=== PATIENT | female | born 1965 | race Caucasian/White ===

== ENCOUNTER 2022-10-23 14:19 | Outpatient (OUT) | payer MEDICAID, SELFPAY ==
--- NOTE | 2022-10-23 14:49 | PM.CN ---
Consult Note: HPI Data of Consult Patient: known to practice within the last 3 years Consult date: 10/23/22 Requesting Physician: BRYANNA WILD NP Primary Care Provider: Marlon Garcia MD Consult Narrative Narrative: She is here for f/u of right knee pain. She had steroid knee injection without residential relief. She would like to try a gel injection. She had gel before with significant relief several years ago. She recently did PT and is doing home exercises. No new sensorimotor or bowel or bladder issues. No adverse med SE. Medications assist patient to be able to complete ADLs cc:: CC: BRYANNA WILD NP Review of Systems ROS Status of ROS 10 or more systems reviewed and unremarkable except as noted in history and below Musculoskeletal Reports: extremity pain Exam Constitutional Documenting provider has reviewed patient's vital signs: yes Common normals: no apparent distress, oriented x3, no limitations, healthy appearing, alert and well nourished General appearance: cooperative, comfortable and well developed Nutritional appearance: obese Orientation/consciousness: Yes awake, Yes oriented to person, Yes oriented to place and Yes oriented to time HENMT Common normals: normocephalic and moist oral mucous membranes Respiratory Common normals: normal respiratory effort, no retractions and no use of accessory muscles Effort & inspection: able to speak in complete sentences and symmetric chest movement Extremity Common normals: normal to inspection, normal capillary refill and no pedal edema Other: right knee pain with ROM and climbing stairs. Pain to outer aspect of knee. LE muscle strength 5/5 with intact sensation Assessment and Plan Assessment and Plan (1) Knee osteoarthritis: Plan right knee durolane injection under fluoroscopy
== END 2022-10-23 14:20 | disposition home or self-care (01) ==
LOC: PM 14:19
PROVIDERS: PCP Family Medicine; Visit Provider Nurse Practitioner
DX: M25.561 Pain in right knee (principal); M17.11 Unilateral primary osteoarthritis, right knee
CPT/HCPCS: G0463

== ENCOUNTER 2022-10-24 09:35 | Outpatient (OUT) | payer MEDICAID, SELFPAY ==
[2022-10-24 10:21] LABS: Basophils Absolute Auto 0.1 10^3/uL (0.0-0.1); Basophils Percent Auto 0.7 % (0.2-2.0); Eosinophils Absolute Auto 0.1 10^3/uL (0.0-0.7); Hematocrit 42.5 % (36.0-48.0); Hemoglobin 13.7 g/dL (12.0-16.0); Immature Granulocytes Abs Auto 0.03 10^3/uL (0.00-0.03); Immature Granulocytes Pct Auto 0.4 % (0.0-0.5); Lymphocytes Absolute Auto 1.8 10^3/uL (1.2-3.8); Lymphocytes Percent Auto 24.7 % (20.5-60.0); Mean Corpuscular HGB Conc 32.2 g/dL (29.9-35.2); Mean Corpuscular Hemoglobin 28.4 pg (26.7-34.0); Mean Platelet Volume 9.7 fL (9.5-13.5); Monocytes Absolute Auto 0.6 10^3/uL (0.3-0.8); Monocytes Percent Auto 7.9 % (1.7-12.0); Neutrophils Absolute Auto 4.6 10^3/uL (1.4-6.5); Neutrophils Percent Auto 64.3 % (43.0-75.0); Platelet Count 215 10^3/uL (150-450); Red Blood Count 4.83 10^6/uL (4.20-5.40); Red Cell Distribution Width 12.3 % (11.0-15.0); White Blood Count 7.2 10^3/uL (4.0-11.0)
[2022-10-24 10:57] LABS: Estimated Average Glucose 103 mg/dL; Glycohemoglobin A1C 5.2 % (4.5-6.2)
[2022-10-24 11:57] LABS: Alanine Aminotransferase 20 U/L (14-59); Albumin Globulin Ratio 1.2; Albumin Level 3.6 g/dL (3.4-5.0); Alkaline Phosphatase 83 U/L (46-116); Anion Gap 10.1; Aspartate Amino Transferase 17 U/L (15-37); BUN Creatinine Ratio 24.7; Bilirubin Total 0.4 mg/dL (0.2-1.0); Calcium 8.7 mg/dL (8.5-10.1); Carbon Dioxide 28.4 mmol/L (21.0-32.0); Chloride 106 mmol/L (98-107); Chol HDL Ratio 4.3; Cholesterol 224 mg/dL (<=200); Estimated GFR (African America >60 (>=60); Estimated GFR (Non-African Ame >60 (>=60); Free T3 3.16 pg/mL (2.18-3.98); Globulin 3.1 g/dL; Glucose 87 mg/dL (74-106); HDL Cholesterol 52 mg/dL (40-60); Potassium 4.5 mmol/L (3.5-5.1); Sodium 140 mmol/L (136-145); Total Protein 6.7 g/dL (6.4-8.2); Triglycerides 165 mg/dL (<=150)
== END 2022-10-24 09:36 | disposition home or self-care (01) ==
LOC: LAB 09:37
PROVIDERS: PCP Family Medicine; Visit Provider Family Medicine
DX: Z00.00 Encounter for general adult medical examination without abnormal findings (principal)
CPT/HCPCS: 36415; 80053; 80061; 83036; 84436; 84443; 84481; 85025

== ENCOUNTER 2022-11-20 08:43 | Day surgery (SDC) | payer MEDICAID, SELFPAY ==
[2022-11-20 09:32] VITALS: BP 130/81; PULSE 73; RESP 14; TEMP 36.1; O2SAT 97
[2022-11-20 10:03] VITALS: RESP 20
[2022-11-20 10:08] VITALS: BP 138/62; PULSE 70; O2SAT 95
[2022-11-20] MEDS: LIDOCAINE HCL 2% PF 100 MG/5 ML VIAL INJ (10:09)
[2022-11-20] MEDS: HYALURONATE SODIUM, STABILIZED 60 MG/3 ML SYRINGE IU (10:09)
[2022-11-20] MEDS: IOHEXOL 240 MG/ML - 10 ML VIAL INJ (10:09)
[2022-11-20 10:11] VITALS: BP 126/60; PULSE 68; O2SAT 95
--- NOTE | 2022-11-20 11:32 | W.PM.PROCNOT ---
Date of procedure: 11/20/22 Pre-op diagnosis: right knee osteoarthritis Post-op diagnosis: same as pre-op Procedure: Procedure: Right knee joint injection using Durolane 3ml. Immediate complications none. Anesthesia: 2% lidocaine plain for skin wheal. After informed consent was obtained, patient brought to the OR placed in the supine position. Skin overlying the area was prepped and draped using Betadine. 25-gauge 1/2 inch needle was used for skin wheal over the medial aspect of the right knee joint identified under fluoroscopy. Omnipaque dye was used to confirm needle tip placement within the knee joint space 0.5 mL use of the injection. Subsequently 3ml of durolane was injected into the space. No indication of intravascular or intraneuronal needle tip placement or injection was noted post procedure. The needle was removed, patient transferred to Recovery room in stable condition to discharged home after meeting criteria. Anesthesia: Local Surgeon: Geoff Romero Condition: stable
== END 2022-11-20 10:13 | disposition home or self-care (01) ==
LOC: SURGOUT 08:44
PROVIDERS: PCP Family Medicine; Visit Provider Anesthesiology Pain Medicine
DX: M17.11 Unilateral primary osteoarthritis, right knee (principal)
CPT/HCPCS: 20610; 77002; J7318; Q9966

== ENCOUNTER 2022-12-11 14:32 | Outpatient (OUT) | payer MEDICAID, SELFPAY ==
--- NOTE | 2022-12-11 15:06 | P.CN_ITS ---
Consult Note: HPI Data of Consult Patient: known to practice within the last 3 years Requesting Physician: Vivian Corral NP Primary Care Provider: Marlon Garcia MD Consult Narrative Reason for consult: right knee durolane f/u Narrative: Jessica Dillard a pleasant 57 year old female presents to office for follow up on right knee pain that has failed PT, conservative therapy, and steroid injections. Patient had second injection of durolane with mild-moderate relief of pain, feels it was not as beneficial as the first time she had this injection but it is helpful. Today rating pain 3/10. cc:: CC: Vivian Corral NP Review of Systems ROS Status of ROS 10 or more systems reviewed and unremarkable except as noted in history and below Musculoskeletal Reports: joint pain PFSH PFSH Medical History (Updated 12/11/22 @ 15:18 by Vivian Corral NP) Surgical History Meds Home Medications and Allergies Home Medications Medication Instructions Recorded Confirmed Type acetaminophen 500 mg tablet 500 mg PO QID PRN pain 11/04/22 11/20/22 History (Acetaminophen Extra Strength) baclofen 10 mg tablet 10 mg PO Q8H PRN muscle spasm 11/04/22 11/20/22 History bee pollen 550 mg capsule mg PO 11/04/22 History biotin 1 mg capsule 1 mg PO DAILY 11/04/22 11/20/22 History celecoxib 200 mg capsule 200 mg PO Q24H 11/04/22 11/20/22 History hydrocodone 5 mg-acetaminophen 325 1 tab PO BID 11/04/22 11/20/22 History mg tablet magnesium 200 mg tablet 400 mg PO DAILY 11/04/22 11/20/22 History multivitamin (Daily Multi-Vitamin 1 tab PO DAILY 11/04/22 11/20/22 History tablet) pantoprazole 40 mg tablet,delayed 40 mg PO DAILY 11/04/22 11/20/22 History release hydrocodone 5 mg-acetaminophen 325 1 tab PO BID PRN pain #60 tabs 11/21/22 Rx mg tablet Allergies Allergy/AdvReac Type Severity Reaction Status Date / Time ciprofloxacin [From Cipro] Allergy Verified 11/20/22 09:37 Exam Constitutional Documenting provider has reviewed patient's vital signs: yes Common normals: no apparent distress, oriented x3, healthy appearing, alert and well nourished General appearance: cooperative HENMT Common normals: normocephalic, hearing grossly normal bilaterally and moist oral mucous membranes Head and scalp: normocephalic Eye Common normals: PERRL Pupil: PERRL Neck & C-Spine Common normals: full ROM General: normal visual inspection Chest Common normals: inspection of chest normal Respiratory Common normals: normal respiratory effort, no retractions and no use of accessory muscles Extremity Right lower extremity: knee joint (pain with weight bearing and activity) Right knee: inspection (enlarged joint) Neuro Common normals: oriented x3, CN's II-XII intact bilaterally, moves all extremiti es, no focal motor deficits, no sensory deficits noted and deep tendon reflexes 2+ bilaterally Sensorium/orientation: alert Gait (neuro): normal gait Motor exam: strength 5/5 throughout and no movement abnormalities noted Psych Common normals: mental status grossly normal, thought process normal, cooperative, affect normal, speech normal and activity/motor behavior normal Speech: normal speech Thought process: normal thought process Results Additional Findings Additional findings: I have checked an [place]AR[place] report on this patient today and there are no aberrancies noted in the prescribing history.?? A drug screen was completed and reviewed within the last year, and if there has not been a drug screen completed we ordered one today to monitor higher risk, state monitored pain medication use. As part of providing excellent, safe, comprehensive care, the following was completed at our patient's visit: 1. A medication reconciliation and review to ensure accurate knowledge of current/active medications, including asking our patients to inform us about any [id number] medications or herbal remedies/nutritional supplements/altern ative remedies. 2. A review to specifically ensure our patients have had annual screening for: elevated body mass index (BMI), tobacco use, screening for depression, and screening for unhealthy alcohol use. When screening is concerning, patients are provided with education and the specific recommendation to discuss the concerning health issue and treatment options with their primary care provider. Assessment and Plan Assessment and Plan (1) Knee osteoarthritis: (2) Obesity: Assessment and Plan: hx of bariatric surgery, congratulated on weight loss efforts continue exercise (3) Chronic prescription opiate use: Assessment and Plan: I have refilled the patient's opioid prescriptions at the above noted dose and schedule.? I feel these medications are improving the patient's quality of life and allow them to tolerate activities of daily living as well as participate in recreational activity.? The patient does not report intolerable side effects. The patient is NOT opioid naive and non-pharmacologic and non-opioid treatment has failed to significantly relieve the patient's pain and improve functionality. The patient has a diagnosis that is related to a somatic or visceral pain etiology. ? ?? I reviewed with the patient the potential risks and side effects with the use of? opioid medications including but not limited to respiratory depression,?sedation, and even . I verified the patient has access to naloxone should?these effects occur. I advised the patient to avoid the use of any other? sedation substances including alcohol, THC, and benzodiazepines while?taking opioid medications due to the risk of compounding side effects and outcomes. I reviewed the [employer], pain treatment agreement, urine? drug screen, and opioid start talking forms. The patient was advised to let?their family know they had Naloxone in case they would need to administer?the medication.? ?? Plan consider genicular RFA in the future, pt not interested in surgery at this time continue [place] 5-325 BID PRN for pain, finding functional benefit and pain relief without side effects continue baclofen 1/2-1 tab TID continue celevrex 200mg QD continue HEP continue tens and topical cream f/u 3 months
== END 2022-12-11 14:33 ==
LOC: PM 14:32
PROVIDERS: PCP Family Medicine; Visit Provider Nurse Practitioner
DX: M17.9 Osteoarthritis of knee, unspecified (principal); E66.9 Obesity, unspecified; Z79.891 Long term (current) use of opiate analgesic
CPT/HCPCS: G0463

== ENCOUNTER 2023-03-12 14:19 | Outpatient (OUT) | payer MEDICAID, SELFPAY ==
--- NOTE | 2023-03-12 14:39 | P.CN_ITS ---
Consult Note: HPI Data of Consult Patient: known to practice within the last 3 years Requesting Physician: Vivian Corral NP Primary Care Provider: Marlon Garcia MD Consult Narrative Reason for consult: f/u Narrative: Jessica Dillard a pleasant 57 year old female presents for evaluation and management of chronic pain. Today pain is 2-3/10 in low back and right knee, describes it as a dull ache. Patient finding benefit to current medication regimen without side effects. 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 [part of] (ICD-10) History of arthroscopy of left knee ?Z98.890 - Other specified postprocedural states (ICD-10) History of breast biopsy ?Z98.890 - Other specified postprocedural states (ICD-10) History of right hip replacement ?Z96.641 - Presence of right artificial hip joint (ICD-10) History of right knee surgery ?Z98.890 - Other specified postprocedural states (ICD-10) History of total left hip arthroplasty ?Z96.642 - Presence of left artificial hip joint (ICD-10) Meds Home Medications and Allergies Home Medications Medication Instructions Recorded Confirmed Type acetaminophen 500 mg tablet 500 mg PO QID PRN pain 11/04/22 11/20/22 History (Acetaminophen Extra Strength) baclofen 10 mg tablet 10 mg PO Q8H PRN muscle spasm 11/04/22 11/20/22 History bee pollen 550 mg capsule mg PO 11/04/22 History biotin 1 mg capsule 1 mg PO DAILY 11/04/22 11/20/22 History celecoxib 200 mg capsule 200 mg PO Q24H 11/04/22 11/20/22 History hydrocodone 5 mg-acetaminophen 325 1 tab PO BID 11/04/22 11/20/22 History mg tablet magnesium 200 mg tablet 400 mg PO DAILY 11/04/22 11/20/22 History multivitamin (Daily Multi-Vitamin 1 tab PO DAILY 11/04/22 11/20/22 History tablet) pantoprazole 40 mg tablet,delayed 40 mg PO DAILY 11/04/22 11/20/22 History release hydrocodone 5 mg-acetaminophen 325 1 tab PO BID PRN pain #60 tabs 11/21/22 Rx mg tablet hydrocodone 5 mg-acetaminophen 325 1 tab PO BID PRN pain #60 tabs 12/18/22 Rx mg tablet hydrocodone 5 mg-acetaminophen 325 1 tab PO BID PRN pain #60 tabs 01/15/23 Rx mg tablet hydrocodone 5 mg-acetaminophen 325 1 tab PO BID PRN pain #60 tabs 02/17/23 Rx mg tablet Allergies Allergy/AdvReac Type Severity Reaction Status Date / Time ciprofloxacin [From Cipro] Allergy Verified 11/20/22 09:37 Exam Constitutional Documenting provider has reviewed patient's vital signs: yes Common normals: no apparent distress, oriented x3, healthy appearing, alert and well nourished General appearance: cooperative HENSC Common normals: normocephalic, hearing grossly normal bilaterally and moist oral mucous membranes Head and scalp: normocephalic Eye Common normals: PERRL Pupil: PERRL Neck & C-Spine Common normals: full ROM General: normal visual inspection Chest Common normals: inspection of chest normal Respiratory Common normals: normal respiratory effort, no retractions and no use of accessory muscles Back & Pelvis Lumbar spine/lower back: pain with ROM Other: negative facet loading bilaterally Extremity Right lower extremity: knee joint (pain with weight bearing and activity) Right knee: inspection (enlarged joint) Neuro Common normals: oriented x3, CN's II-XII intact bilaterally, moves all extremities, no focal motor deficits, no sensory deficits noted and deep tendon reflexes 2+ bilaterally Sensorium/orientation: alert Gait (neuro): normal gait Motor exam: strength 5/5 throughout and no movement abnormalities noted Psych Common normals: mental status grossly normal, thought process normal, cooperative, affect normal, speech normal and activity/motor behavior normal Speech: normal speech Thought process: normal thought process Results Additional Findings Additional findings: I have checked an [place]AR[place] report on this patient today and there are no aberrancies noted in the prescribing history.?? A drug screen was completed and reviewed within the last year, and if there has not been a drug screen completed we ordered one today to monitor higher risk, state monitored pain medication use. As part of providing excellent, safe, comprehensive care, the following was completed at our patient's visit: 1. A medication reconciliation and review to ensure accurate knowledge of current/active medications, including asking our patients to inform us about any [id number] medications or herbal remedies/nutritional supplements/alternative remedies. 2. A review to specifically ensure our patients have had annual screening for: elevated body mass index (BMI), tobacco use, screening for depression, and screening for unhealthy alcohol use. When screening is concerning, patients are provided with education and the specific recommendation to discuss the concerning health issue and treatment options with their primary care provider. Assessment and Plan Assessment and Plan (1) Chronic prescription opiate use: Assessment and Plan: I feel these medications are improving the patient's quality of life and allow them to tolerate activities of daily living as well as participate in recreational activity.? The patient does not report intolerable side effects. The patient is NOT opioid naive and non-pharmacologic and non-opioid treatment has failed to significantly relieve the patient's pain and improve functionality. The patient has a diagnosis that is related to a somatic or visceral pain etiology. ? ?? I reviewed with the patient the potential risks and side effects with the use of? opioid medications including but not limited to respiratory depression,? sedation, and even . I verified the patient has access to naloxone should? these effects occur. I advised the patient to avoid the use of any other? sedation substances including alcohol, THC, and benzodiazepines while? taking opioid medications due to the risk of compounding side effects and? detrimental outcomes. I reviewed the [employer], pain treatment agreement, urine? drug screen, and opioid start talking forms. The patient was advised to let? their family know they had Naloxone in case they would need to administer? the medication.? ?? A drug screen was completed within the last year, and no aberrancies were noted regarding their use of controlled substances. The patient understands they are subject to the terms and conditions of the pain contract that they have signed. ? ?? I have checked an [place]AR[place] report on this patient today and there are no aberrancies noted in the prescribing history.? (2) Knee osteoarthritis: (3) Lumbar spondylosis: Plan continue current medications f/u 3 months, consider repeat lumbar RFA or repeat right knee durolane injection in the future
== END 2023-03-12 14:20 | disposition home or self-care (01) ==
PROVIDERS: PCP Family Medicine; Visit Provider Nurse Practitioner
DX: Z79.891 Long term (current) use of opiate analgesic (principal)
CPT/HCPCS: G0463

== ENCOUNTER 2023-06-04 14:16 | Outpatient (OUT) | payer MEDICAID, SELFPAY ==
--- OUTSIDE RECORDS SUMMARY | 2023-06-04 13:35 | XMS_ITS | CCD ---
Author Name Unknown Address [address] [facility] [address] [place] [address] Organization [facility] Care Team Providers Care Double Cutter Name Role Phone Yaneth An MD Primary Care Provider [phone] WYATT TAPIA Admitting Unavailable WYATT TAPIA Attending Unavailable HODANYYANETH Primary Care Unavailable HOY ., DR WOLFE Consulting Unavailable HOY ., DR WOLFE Attending Unavailable HOY ., DR WOLFE Admitting Unavailable HOY ., DR WOLFE Primary Care Unavailable WILHELM ., DR KAITLIN Jang Attending Unavailable WILHELM ., DR KAITLIN Jang Admitting Unavailable HOY ., DR WOLFE Primary Care Unavailable WAGNER ., THERESA Consulting Unavailable HOY ., DR WOLFE Primary Care Unavailable WILHELM ., DR KAITLIN Jang Attending Unavailable WILHELM ., DR KAITLIN Jang Admitting Unavailable WILHELM ., DR KAITLIN Jang Consulting Unavailable TINO ADAMS Consulting Unavailable WILHELM ., DR KAITLIN Jang Attending Unavailable WILHELM ., DR KAITLIN Jang Admitting Unavailable HOY ., DR WOLFE Primary Care Unavailable HOY ., DR WOLFE Primary Care Unavailable WILHELM ., DR KAITLIN Jang Consulting Unavailable WILHELM ., DR KAITLIN Jang Admitting Unavailable WILHELM ., DR KAITLIN Jang Attending Unavailable LAKSHMIPATHY ., ROSI Attending Pauly vailable LAKSHMIPATHY ., ROSI Admitting Pauyl vailable HOY ., DR WOLFE Primary Care Unavailable VANESSAC, DR FISHER Admitting Unavailable HOY ., DR WOLFE Primary Care Unavailable MISC, DR FISHER Attending Unavailable WAGNER ., THERESA Consulting Unavailable HOY ., DR WOLFE Primary Care Unavailable WILHELM ., DR KAITLIN Jang Attending Unavailable WILHELM ., DR KAITLIN Jang Admitting Unavailable WILHELM ., DR KAITLIN Jang Consulting Unavailable WILHELM ., DR KAITLIN Jang Attending Unavailable HOY ., DR WOLFE Primary Care Unavailable WILHELM ., DR KAITLIN Jang Admitting Unavailable KATHLEEN YE Consulting Unava ilable WILHELM ., DR KAITLIN Jang Admitting Unavailable WILHELM ., DR KAITLIN Jang Attending Unavailable HOY ., DR WOLFE Primary Care Unavailable WAGNER ., THERESA Consulting Unavailable LAKSHMIPATHY ., NARENDRAÚLATH Attending Pauly vailable LAKSHMIPATHY ., NARENDRAÚLATH Admitting Pauly vailable HOY ., DR WOLFE Primary Care Unavailable LAKSHMIPATHY ., NARBRI Consulting Pauly vailable WAGNER ., THERESA Consulting Unavailable HOY ., DR WOLFE Primary Care Unavailable WILHELM ., DR KAITLIN Jang Admitting Unavailable WILHELM ., DR KAITLIN Jang Attending Unavailable LAKSHMIPATHY ., NARENDRAÚLATH Attending Pauly vailable LAKSHMIPATHY ., ROSI Admitting Pauly vailable HOY ., DR WOLFE Primary Care Unavailable HOY ., DR WOLFE Primary Care Unavailable WILHELM ., DR KAITLIN Jang Consulting Unavailable WILHELM ., DR KAITLIN Jang Attending Unavailable WILHELM ., DR KAITLIN Jang Admitting Unavailable HOY ., DR WOLFE Primary Care Unavailable WILHELM ., DR KAITLIN Jang Consulting Unavailable WILHELM ., DR KAITLIN Jang Attending Unavailable WILHELM ., DR KAITLIN Jang Admitting Unavailable WILHELM ., DR KAITLIN Jang Attending Unavailable WILHELM ., DR KAITLIN Jang Admitting Unavailable HOY ., DR WOLFE Consulting Unavailable HOY ., DR WOLFE Primary Care Unavailable HOY ., DR WOLFE Attending Unavailable HOY ., DR WOLFE Admrobert Unavailable HOY ., DR WOLFE Primary Care Unavailable MISC, DR FISHER Admitting Unavailable MISC, DR FISHER Consulting Unavailable MISC, DR FISHER Attending Unavailable HOY ., DR WOLFE Primary Care Unavailable LAKSHMIPATHY ., NARENDRANATH Consulting Pauly vailable LAKSHMIPATHY ., NARENDRANATH Attending Pauly vailable LAKSHMIPATHY ., NARENDRANATH Admitting Pauly vailable HOY ., DR WOLFE Primary Care Unavailable HOY ., DR WOLFE Primary Care Unavailable WILHELM ., DR KAITLIN Jang Attending Unavailable WILHELM ., DR KAITLIN Jang Admitting Unavailable Allergies Allergy Classification Reported Allergen(s) Allergy Type Date of Onset Reaction(s) Facility (3 sources) Ciprofloxacin; Translations: [CIPROFLOXACIN] Drug Allergy 10-19-2020 Unknown [facility] (2 sources) Ciprofloxacin Drug Allergy 08-17-2013 [facility] Repository Medications Current Medications Medication Drug Class(es) Dates Sig (Normalized) Sig (Original) amino ac/whey prot conc, isol (WHEY PROTEIN ORAL) (1 source) take 1 dose by mouth once daily before mealtime amino ac/whey prot conc, isol (WHEY PROTEIN ORAL) Take 1 Dose by mouth 1 (one) time each day. 0 Active aspirin 81 mg chewable tablet (1 source) Platelet Aggregation Inhibitor, Nonsteroidal Anti-inflammatory Drug Start: 09-12-2021 End: 10-10-2021 take 1 tablet by mouth twice daily aspirin 81 mg chewable tablet Chew 1 tablet (81 mg total) 2 (two) times a day for 28 days. Aspirin 81 mg, 1 tab PO BID for 6 weeks, Disp appropriate quantity. If patient is prescribed Arixtra/Lovenox/Xa relto, do not begin Aspirin until that medication is finished, then only take Aspirin for 4 weeks. 56 each 0 09/12/2021 10/10/2021 Active celecoxib 200 mg oral capsule (2 sources) Nonsteroidal Anti-inflammatory Drug Start: 08-29-2021 End: 08-28-2021 take 200 mg by mouth once daily 200 mg, oral, Daily, First dose on [facility] 08/29/21 at 0900, Phase II/On Unit Start: 08-28-2021 End: 09-27-2021 take 1 capsule by mouth once daily celecoxib (CeleBREX) 200 mg capsule Take 1 capsule (200 mg total) by mouth 1 (one) time each day. If prior authorization is required, do not fill. 30 each 0 08/28/2021 09/27/2021 Active cephalexin 500 mg oral capsule (1 source) Cephalosporin Antibacterial Start: 08-28-2021 End: 08-29-2021 take 1 capsule by mouth every eight hours cephalexin (KEFLEX) 500 mg capsule Take 1 capsule (500 mg total) by mouth every 8 (eight) hours for 3 doses. 3 each 0 08/28/2021 08/29/2021 Active HYDROmorphone hydrochloride 2 mg oral tablet (2 sources) Opioid Agonist Start: 08-28-2021 End: 08-31-2021 take 1 tablet by mouth every three hours for pain HYDROmorphone (DILAUDID) 2 mg tablet Take 1 tablet (2 mg total) by mouth every 3 (three) hours if needed for severe pain for up to 3 days. Dx: Z96.6 Max Daily Amount: 16 mg 10 tablet 0 08/28/2021 08/31/2021 Active Start: 08-28-2021 End: 08-28-2021 HYDROmorphone (DILAUDID) inj ection 0.5 mg Magnesium (1 source) take 1 tablet by mouth at bedtime MAGNESIUM ORAL Take 1 tablet by mouth at bedtime. 0 Active multivitamin tablet (1 source) take 2 tablets by mouth twice daily multivitamin tablet Take 2 tablets by mouth 2 (two) times a day. 0 Active ondansetron 4 mg disintegrating oral tablet (1 source) Serotonin-3 Receptor Antagonist Start: 08-29-19 End: 09-05-19 apply 1 tablet topically every eight hours for nausea ondansetron ODT (ZOFRAN-ODT) 4 mg dispersible tablet Dissolve 1 tablet (4 mg total) on top of the tongue every 8 (eight) hours if needed for nausea or vomiting for up to 7 days. 15 tablet 0 08/28/2021 09/04/2021 Active pantoprazole 40 mg delayed release oral tablet (3 sources) Proton Pump Inhibitor Start: 07-23-19 End: 10-21-19 take 1 tablet by mouth once daily pantoprazole DR (PROTONIX) 40 mg tablet Take 1 tablet by mouth once daily. 90 tablet 0 07/22/2021 10/20/2021 Active Start: 04-25-2021 End: 07-14-2021 take 1 tablet by mouth once daily pantoprazole DR (PROTONIX) 40 mg tablet Take 1 tablet by mouth once daily. 90 tablet 0 04/25/2021 07/14/2021 Discontinued Comment on above: Take 1 tablet by brice th once daily. polyvinyl alcohol 0.014 ml/ml ophthalmic solution (1 source) take 1 drop(s) into the eye(s) once daily polyvinyl alcohol (ARTIFICIAL TEARS) 1.4 % ophthalmic solution Administer 1 drop into both eyes 1 (one) time each day if needed for dry eyes. 0 Active rivaroxaban 10 mg oral tablet (2 sources) Factor Xa Inhibitor Start: 08-29-2021 End: 08-28-2021 take 10 mg by mouth once daily at dinner 10 mg, oral, Daily with dinner, First dose on [facility] 08/29/21 at 1700, For 14 days, Phase II/On Unit Indication: VTE/PE Prophylaxis Start: 08-29-2021 End: 09-12-2021 take 1 tablet by mouth once daily at mealtime rivaroxaban (XARELTO) 10 mg tablet Take 1 tablet (10 mg total) by mouth 1 (one) time each day for 14 days. Take with food. If insurance does not cover or other patient barriers exist, then change to: Lovenox 40 mg subcutaneous inj. Daily, Disp #14 14 each 0 08/29/2021 09/12/2021 Active traMADol hydrochloride 50 mg oral tablet (1 source) Opioid Agonist Start: 08-28-2021 End: 09-10-2021 take 50-100 mg by mouth every six hours as needed traMADoL (ULTRAM) 50 mg tablet Take 1-2 tablets (50-100 mg total) by mouth every 6 (six) hours if needed for moderate pain for up to 13 days. Dx: Z96.6 Max Daily Amount: 400 mg 100 tablet 0 08/28/2021 09/10/2021 Active ursodiol 300 mg oral capsule (2 sources) Bile Acid Start: 03-22-2021 End: 09-18-2021 take 1 capsule by mouth twice daily ursodiol (ACTIGALL) 300 mg capsule Take 1 capsule by mouth twice daily. 60 capsule 5 03/22/2021 09/18/2021 Active take 1 capsule by mouth once kim ly ursodioL (ACTIGALL) 300 mg capsule Take 300 mg by mouth 1 (one) time each day. 0 Active Comment on above: Take 1 capsule by [facility] twice daily. Completed/Discontinued Medications Medication Drug Class(es) Dates Sig (Normalized) Sig (Original) acetaminophen 500 mg oral tablet (3 sources) Start: 08-28-2021 End: 08-28-2021 take 1000 mg by mouth every six hours 1,000 mg, oral, Every 6 hours scheduled, First dose on Thu08/28/21 at 1800, Phase II/On Unit Start: 08-28-2021 End: 09-04-2021 take 2 tablets by mouth three times daily acetaminophen (TYLENOL) 500 mg tablet Take 2 tablets (1,000 mg total) by mouth 3 (three) times a day for 7 days. Do not exceed 3,000 mg daily limit. 50 tablet 0 08/28/2021 09/04/2021 Active End: 08-28-2021 take 500-1000 mg by mouth twice daily acetaminophen (TYLENOL) 500 mg tablet Take 500-1,000 mg by mouth 2 (two) times a day if needed (pain). 0 08/28/2021 Discontinued (Stop Taking at Discharge) acetaminophen 325 mg / HYDROcodone bitartrate 5 mg oral tablet (2 sources) Opioid Agonist End: 08-28-2021 take 1 tablet by mouth three times daily HYDROcodone-acetaminophen ([place]) 5-325 mg per tablet Take 1 tablet by mouth 3 (three) times a day if needed (pain). 0 08/28/2021 Discontinued (Stop Taking at Discharge) take 1 tablet by brice th twice daily HYDROcodone-acetaminophen (NORCO) 5-325 mg per tablet Take 1 tablet by mouth twice daily. 0 Active Comment on above: Take 1 tablet by brice th twice daily. acetaminophen 325 mg / oxyCODONE hydrochloride 5 mg oral tablet (1 source) Opioid Agonist Start: 08-29-19 End: 08-29-19 oxyCODONE-acetaminop hen (PERCOCET) 5-325 mg per tablet 2 tablet baclofen 10 mg oral tablet (2 sources) gamma-Aminobuty jacques Acid-ergic Agonist Start: 03-13-20 End: 08-29-19 baclofen (LIORESAL) 10 mg tablet Biotin (1 source) End: 08-29-19 take 1 tablet by mouth once daily BIOTIN ORAL Take 1 tablet by mouth 1 (one) time each day. 0 08/28/2021 Discontinued (Stop Taking at Discharge) calcium carbonate-vitamin D3 (OYSTER SHELL CALCIUM-VIT D3) 500 mg(1,250mg) -200 unit pwpk (1 source) calcium carbonate-vitamin D3 (OYSTER SHELL CALCIUM-VIT D3) 500 mg(1,250mg) -200 unit pwpk Take 200 mg by mouth twice daily. 0 Active Comment on above: Take 200 mg by mouth twice daily. calcium chloride 0.0014 meq/ml / potassium chloride 0.004 meq/ml / sodium chloride 0.103 meq/ml / sodium lactate 0.028 meq/ml injectable solution (2 sources) Start: 08-29-19 End: 08-29-19 take 100 mL intravenously every hour 100 mL/hr, intravenous, Continuous, Starting on Thu08/28/21 at 1700, Phase II/On Unit Start: 08-28-2021 End: 08-28-2021 lactated Ringer's infusion ceFAZolin (ANCEF) 2 gram/20 mL IV syringe 2 g (1 source) Start: 08-28-2021 End: 08-28-2021 2 g, intravenous, Administer over 3 Minutes, Every 8 hours, First dose on Thu08/28/21 at 2200, For 2 doses, Phase II/On Unit Indication: Prophylaxis-Surgical cholecalciferol 1.25 mg oral tablet (1 source) Vitamin D Start: 01-12-2021 cholecalciferol, vitamin D3, 1,250 mcg (50,000 unit) tab Take one tablet once a week for 12 weeks 12 tablet 0 01/12/2021 Active Comment on above: Take one tablet once a week for 12 weeks ibuprofen 800 mg oral tablet (2 sources) Nonsteroidal Anti-inflammatory Drug Start: 07-28-2018 take 1 tablet by mouth every six hours as needed ibuprofen (MOTRIN) 800 mg tablet Take 800 mg by mouth every 6 hours as needed. 3 07/28/2018 Active End: 08-28-2021 take 1 tablet by mouth twice daily ibuprofen (ADVIL,MOTRIN) 800 mg tablet Take 800 mg by mouth 2 (two) times a day if needed (pain). 0 08/28/2021 Discontinued (Stop Taking at Discharge) Comment on above: Take 800 mg by mouth every 6 hours as needed. Lactobacillus acidophilus (1 source) LACTOBACILLUS ACIDOPHILUS ORAL Take by mouth once daily. 0 Active Comment on above: Take by mouth once d aily. magnesium oxide 400 mg oral tablet (1 source) take 1 tablet by mouth once daily magnesium oxide (MAG-OX) 400 mg (241.3 mg magnesium) tablet Take 400 mg by mouth once daily. 0 Active Comment on above: Take 400 mg by mouth once daily. melatonin 10 mg oral capsule (1 source) take 1 capsule by mouth once daily melatonin 10 mg cap Take 10 mg by mouth once daily. 0 Active Comment on above: Take 10 mg by mouth once daily. 1 ml meperidine hydrochloride 50 mg/ml injection (1 source) Opioid Agonist Start: 2 End: 2 meperidine (DEMEROL) 50 mg/mL injection 12.5 mg MULTIVITAMIN ORAL (1 source) MULTIVITAMIN ORA L Take by mouth once daily. 0 Active Comment on above: Take by mouth once d aily. omega-3 fatty acids (FISH OIL CONCENTRATE) 1,000 mg cap (1 source) take 1 capsule by mouth once daily omega-3 fatty acids (FISH OIL CONCENTRATE) 1,000 mg cap Take 1 g by mouth once daily. 0 Active Comment on above: Take 1 g by mouth on ce daily. ondansetron ODT (ZOFRAN-ODT) dispersible tablet 4 mg (1 source) Start: 2 End: 2 ondansetron ODT (ZOFRAN-ODT) dispersible tablet 4 mg oxyCODONE hydrochloride 5 mg oral tablet (2 sources) Opioid Agonist Start: 2 End: 2 take 5 mg by mouth every four hours as needed for pain 5 mg, oral, Every 4 hours PRN, Breakthrough pain, Starting on Thu08/28/21 at 1639, Phase II/On Unit May consider scheduled oxyCODONE instead of PRN Start: 08-28-2021 End: 09-04-2021 oxyCODONE (ROXICODONE) 5 mg immediate release tablet Take 1-2 tablets (5-10 mg total) by mouth every 4 (four) hours if needed for moderate pain or severe pain for up to 7 days. Dx: Z96.6 Max Daily Amount: 60 mg 40 tablet 0 08/28/2021 09/04/2021 Active Prochlorperazine (1 source) Phenothiazine Start: 08-28-2021 End: 08-28-2021 take 1 tablet by mouth every six hours as needed prochlorperazine (COMPAZINE) tablet 10 mg 72 hr scopolamine 0.0139 mg/hr transdermal system (1 source) Anticholinergic Start: 03-22-2021 scopolamine (TRANSDERM-SCOP) patch 1.5 mg/72 hr (1 mg over 3 days) Apply 1 Patch as directed every 72 hours. Apply one patch behind the ear every 3 days 5 Patch 1 03/22/2021 Active Comment on above: Apply 1 Patch as dir ected every 72 hours. Apply one patch behind the ear every 3 days Sodium Chloride (1 source) Start: 08-28-2021 End: 08-28-2021 sodium chloride 0.9 % flush 10 mL ubidecarenone 200 mg oral capsule (1 source) Coenzyme Q10 (CO Q-10) 200 mg cap Take 200 mg by mouth once daily. 0 Active Comment on above: Take 200 mg by mouth once daily. UNABLE TO FIND (1 source) End: 08-28-2021 take 1 dose by mouth once daily UNABLE TO FIND Take 1 Dose by mouth 1 (one) time each day. Collagen Peptides 0 08/28/2021 Discontinued (Stop Taking at Discharge) VITAMIN B COMPLEX ORAL (1 source) VITAMIN B COMPLE X ORAL Take by mouth once daily. 0 Active Comment on above: Take by mouth once d aily. 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] Onset: 01-07-2021 01-07-2021 Chronic Esophageal disorders (1 source) Gastroesophageal reflux disease; Translations: [Gastro-esophageal reflux disease without esophagitis] Onset: 12-12-2020 12-12-2020 Chronic Osteoarthritis (7 sources) Osteoarthritis of right hip joint; Translations: [Unilateral primary osteoarthritis, right hip] Onset: 08-28-2021 Chronic Osteoporosis (1 source) Age-related osteoporosis without current pathological fracture; Translations: [AGE-REL OSTEOPOR W/O CURR PATH FX] Onset: 07-06-2022 Chronic Other endocrine disorders (1 source) Adrenal mass; Translations: [Other specified disorders of adrenal gland] Onset: 12-12-2020 12-27-2020 Chronic Other nervous system disorders (1 source) Other chronic pain; Translations: [OTHER CHRONIC PAIN] Onset: 07-06-2022 Chronic Other nervous system disorders (1 source) Chronic pain syndrome; Translations: [CHRONIC PAIN SYNDROME] Onset: 10-17-2021 Chronic Other non-traumatic joint disorders (4 sources) Pain in right knee; Translations: [PAIN IN RIGHT KNEE] Onset: 07-03-2022 Episodic Other nutritional; endocrine; and metabolic disorders (1 source) Body mass index 40+ - severely obese; Translations: [Body mass index (BMI) 45.0-49.9, adult] Onset: 12-12-2020 12-12-2020 Chronic Other nutritional; endocrine; and metabolic disorders (1 source) Obesity; Translations: [Obesity, unspecified] Onset: 03-29-2021 03-31-2021 Chronic Spondylosis; intervertebral disc disorders; other back problems (5 sources) Spondylosis without myelopathy or radiculopathy, lumbar region; Translations: [Other intervertebral disc degeneration, lumbar region] Onset: 05-01-2022 Chronic Unclassified (1 source) LOW BACK PAIN, UNSPECIFIED; Translations: [LOW BACK PAIN, UNSPECIFIED] Onset: 05-06-2022 Unclassified (1 source) CONTACT W/AND (SUSP) EXPOS COVID-19; Translations: [CONTACT W/AND (SUSP) EXPOS COVID-19] Onset: 04-22-2022 Unclassified (1 source) COUGH, UNSPECIFIED; Translations: [COUGH, UNSPECIFIED] Onset: 04-22-2022 Past or Other Problems Problem Classification Problem Date Documented Da te Episodic/Chronic Diabetes mellitus without complication (1 source) Increased glucose level; Translations: [Other abnormal glucose] Onset: 12-12-2020 12-12-2020 Episodic Other circulatory disease (1 source) Other specified symptoms and signs involving the circulatory and respiratory systems; Translations: [OTH SPEC SX SIGNS INVLV CIRC RS] Onset: 04-22-2022 Episodic Other connective tissue disease (1 source) Muscle wasting and atrophy, not elsewhere classified, unspecified site; Translations: [MUSCLE WASTING ATROPHY NEC UNS SITE] Onset: 12-20-2021 Episodic Results Test Name Value Interpretation Reference Range Facility Covid-19 PCR (CVDTB)on 03-13 SARS-CoV-2 (COVID-19) RNA HELLEN+probe Ql (Unsp spec) Not detected Normal NOT DETECTED [facility] Comment on above: Result Comment: When diagnostic testing is negative, the possibility of a false negative should be considered in the context of a patient's recent exposures and the presence of clinical signs and symptoms consistent with SARS-CoV-2. This test is not yet approved or cleared by the [place] FDA. When there are no FDA-approved or cleared tests available, and other criteria are met, FDA can make tests available under an emergency access mechanism called an Emergency Use Authorization (EUA). The EUA for this test is supported by the [place] of Health and Human Service's declaration that circumstances exist to justify the emergency use of in vitro diagnostics for the detection and/or diagnosis of the virus that causes COVID-19. This EUA will remain in effect for the duration of the COVID-19 declaration justifying emergency of IVDs, unless it is terminated or revoked by the FDA (after which the test may no longer be used). Performed By: #### C VDTB ####[facility] [id number] [place], [place] [address]Dr. Bakari [facility] INFLUENZA A AND B AGon 03-28 [facility] SEE BELOW Normal [facility] Comment on above: Result Comment: Nega tive for Flu A protein angiten. Infection due to Flu A cannot be ruled out. Flu A angiten in the sample may be below the detection limit of the test. Performed By: #### I NFLUAB ####[facility] [address] [place], [place] [address]Dr. Bakari [facility] INFLUBNEGH SEE BELOW Normal [facility] Comment on above: Result Comment: Nega tive for Flu B protein antigen. Infection due to Flu B cannot be ruled out. Flu B antigen in the sample may be below the detection limit of the test. Performed By: #### I NFLUAB ####[facility] [address] [place], [place] [address]Dr. maxx [facility] INFLUENZA A AG Negative Normal NEGATIVE SEE COMMENT [facility] Comment on above: Performed By: #### I NFLUAB ####[facility] [id number] [place], [place] [address]Dr. Bakari [facility] INFLUENZA B AG Negative Normal NEGATIVE SEE COMMENT [facility] Comment on above: Performed By: #### I NFLUAB ####[facility] [address] [place], [place] [address]Dr. Bakari [facility] INTERNAL CONTROLS Within Normal Limits Normal Wi thin Normal Limits [facility] Comment on above: Performed By: #### I NFLUAB ####[facility] [address] [place], [place] [address]Wz. Bakari Isidro Covid-19 PCR (CVDTBH)on SARS-CoV-2 (COVID-19) RNA HELLEN+probe Ql (Unsp spec) Not detected Normal NOT DETECTED [facility] Comment on above: Result Comment: This test is not yet approved or cleared by the [place] FDA. When there are no FDA-approved or cleared tests available, and other criteria are met, FDA can make tests available under an emergency access mechanism called an Emergency Use Authorization (EUA). The EUA for this test is supported by the [place] of Health and Human Service's (HHS's) declaration that circumstances exist to justify the emergency use of in vitro diagnostics for the detection and/or diagnosis of the virus that causes COVID-19. This EUA will remain in effect (meaning this test can be used) for the duration of the COVID-19 declaration justifying emergency of IVDs, unless it is terminated or revoked by FDA (after which the test may no longer be used). When diagnostic testing is negative, the possibility of a false negative should be considered in the context of a patient's recent exposures and the presence of clinical signs and symptoms consistent with SARS-CoV-2. Performed By: #### C VDTBH ####[facility] [address] [place], [place] [address]Ip. Bakari Isidro Covid-19 PCR (CVDTBH)on 01-12 SARS-CoV-2 (COVID-19) RNA HELLEN+probe Ql (Unsp spec) Not detected Normal NOT DETECTED [facility] Comment on above: Result Comment: This test is not yet approved or cleared by the [place] FDA. When there are no FDA-approved or cleared tests available, and other criteria are met, FDA can make tests available under an emergency access mechanism called an Emergency Use Authorization (EUA). The EUA for this test is supported by the [place] of Health and Human Service's (HHS's) declaration that circumstances exist to justify the emergency use of in vitro diagnostics for the detection and/or diagnosis of the virus that causes COVID-19. This EUA will remain in effect (meaning this test can be used) for the duration of the COVID-19 declaration justifying emergency of IVDs, unless it is terminated or revoked by FDA (after which the test may no longer be used). When diagnostic testing is negative, the possibility of a false negative should be considered in the context of a patient's recent exposures and the presence of clinical signs and symptoms consistent with SARS-CoV-2. Performed By: #### C VDTBH ####[facility] [address] [place], [place] [address]CzDr. Bakari Isidro VIT D [place] [facility] 2021 Vitamin D, 25-Hydroxy 60.1 ng/mL Normal 30.0-100.0 [facility] Comment on above: Result Comment: Traci min D deficiency has been defined by the [place] of [employer] and an Endocrine Society practice guideline as a level of serum 25-OH vitamin D less than 20 ng/mL (1,2). The Endocrine Society went on to further define vitamin D insufficiency as a level between 21 and 29 ng/mL (2). 1. IOM ([place] of [employer]). 2010. Dietary reference intakes for calcium and D. Garcia [place]: The National Academies Press. 2. Qi MF, Celeste [place], Debora CHOWDHURY, et al. Evaluation, treatment, and prevention of vitamin D deficiency: an Endocrine Society clinical practice guideline. JCEM. 2010; 96(7):1911-30. Performed By: #### V ITADLC #### [facility] [address] [place], [place] [address] Dr. Bakari Isidro CBC AUTO DIFFon 11-19-2021 BASO # 0.0 103/ul Normal 0.0-0.1 [facility] Comment on above: Performed By: #### C BC ####[facility] [address] [place], [place] [address]NvDr. Bakari Isidro Basophils/100 WBC (Bld) 0.5 % Normal 0.2-2.0 [facility] Comment on above: Performed By: #### C BC ####[facility] [address] [place], [place] [address]HbDr. Bakari Isidro EO # 0.1 103/ul Normal 0.0-0.7 [facility] Comment on above: Performed By: #### C BC ####[facility] [address] [place] [address]Dr. Bakari Isidro Eosinophils/100 WBC (Bld) 1.4 % Normal 0.9-7.0 [facility] Comment on above: Performed By: #### C BC ####[facility] [address] [place] [address]Dr. Bakari Isidro Erythrocyte distribution width (RBC) [Ratio] 12.8 % Normal 11.0-15.0 [facility] Comment on above: Performed By: #### C BC ####[facility] [address] [place], [place] [address]Dr. Bakari Isidro Hematocrit (Bld) [Volume fraction] 43.2 % Normal 36.0-48.0 [facility] Comment on above: Performed By: #### C BC ####[facility] [address] [place], [place] [address]Dr. Bakari Isidro Hemoglobin (Bld) [Mass/Vol] 13.4 g/dL Normal 12.0-16.0 [facility] Comment on above: Performed By: #### C BC ####[facility] [address] [place], [place] [address]Dr. Bakari Isidro IG # 0.05 10e3/ul Critically high 0.00-0.03 [facility] Comment on above: Performed By: #### C BC ####[facility] [address] [place], [place] [address]Dr. Bakari Isidro IG % 0.6 % Critically high 0.0-0.5 [facility] Comment on above: Performed By: #### C BC ####[facility] [address] [place], [place] [address]Dr. Bakari Isidro LYMPH # 1.6 103/ul Normal 1.2-3.8 [facility] Comment on above: Performed By: #### C BC ####[facility] [address] [place], [place] [address]Dr. Bakari Isidro Lymphocytes/100 WBC (Bld) 19.4 % Critically low 20.5-60.0 [facility] Comment on above: Performed By: #### C BC ####[facility] [address] [place] [address]Dr. Bakari Isidro MANUAL DIFF REQ NO Normal [facility] Comment on above: Performed By: #### C BC ####[facility] [address] [place] [id number]. Bakari Isidro MCH (RBC) [Entitic mass] 27.5 pg Normal 26.7-34.0 [facility] Comment on above: Performed By: #### C BC ####[facility] [address] [place] [address]Dr. Bakari Isidro MCHC (RBC) [Mass/Vol] 31.0 g/dL Normal 29.9-35.2 [facility] Comment on above: Performed By: #### C BC ####[facility] [address] [place], [place] [address]Dr. Bakari Isidro MCV (RBC) [Entitic vol] 88.5 fL Normal 81.0-99.0 [facility] Comment on above: Performed By: #### C BC ####[facility] [address] [place], [place] [address]Dr. Bakari Isidro MONO # 0.6 103/ul Normal 0.3-0.8 [facility] Comment on above: Performed By: #### C BC ####[facility] [address] [place], [place] [address]Dr. Bakari Isidro Monocytes/100 WBC (Bld) 7.2 % Normal 1.7-12.0 [facility] Comment on above: Performed By: #### C BC ####[facility] [address] [place], [place] [address]DrJuan A Isidro NEUT # 6.0 103/ul Normal 1.4-6.5 [facility] Comment on above: Performed By: #### C BC ####[facility] [address] [place], [place] [id number] A Isidro Neutrophils/100 WBC (Bld) 70.9 % Normal 43.0-75.0 [facility] Comment on above: Performed By: #### C BC ####[facility] [address] [place] [phone]. Bakari Isidro Platelet mean volume (Bld) [Entitic vol] 9.5 fL Normal 9.5-13.5 [facility] Comment on above: Performed By: #### C BC ####[facility] [address] [place] [phone]. Bakari Isidro PLT 236 103/ul Normal 150-450 [facility] Comment on above: Performed By: #### C BC ####[facility] [address] [place] [phone] A Isidro RBC 4.88 106/ul Normal 4.20-5.40 [facility] Comment on above: Performed By: #### C BC ####[facility] [address] [place] [phone] A Isidro WBC 8.5 103/ul Normal 4.0-11.0 [facility] Comment on above: Performed By: #### C BC ####[facility] [address] [place] [phone]. Bakari Isidro FREE THYROXINE INDEX T7on FTI 2.27 Normal 1.30-4.50 [facility] Comment on above: Performed By: #### T SH, LIPID, CMP, T7 #### [facility] [address] [place] [address] [address] Bakari Isidro T3U 32.0 % Normal 30.0-39.0 [facility] Comment on above: Performed By: #### T SH, LIPID, CMP, T7 #### [facility] [address] [place] [address] [address] Bakari Isidro T4 [Mass/Vol] 7.10 ug/dL Normal 4.80-13.90 [facility] Comment on above: Performed By: #### T SH, LIPID, CMP, T7 #### [facility] [address] [place] [address] [address] Bakari Isidro GLYCOHEMOGLOBIN A1Con 2021 ADA RECOMMENDATION SEE BELOW Normal [facility] Comment on above: Result Comment: ADA RECOMMENDED LIMIT 4.0 - 6.0 ADA THERAPEUTIC TARGET < 7.0 ACTION SUGGESTED > 7.0 Performed By: #### A 1C #### [facility] [address] [place] [address] [address] Bakari Isidro Glucose [Mass/Vol] 105 mg/dL Normal [facility] Comment on above: Performed By: #### A 1C #### [facility] [address] [place] [address] [address] Bakari Isidro HbA1c (Bld) [Mass fraction] 5.3 % Normal 4.5-6.2 [facility] Comment on above: Performed By: #### A 1C #### [facility] [address] [place] [address] [address] Bakari Isidro IRONon 11-19-2021 Iron [Mass/Vol] 49.0 ug/dL Critically low 50.0-170.0 [facility] Comment on above: Performed By: #### I JOHAN, B12FOL ####[facility] [address] [place] [address]Dr. Bakari Isidro LIPID PROFILEon 11-19-2021 CHOL-HDL RATIO NORM SEE BELOW Normal [facility] Comment on above: Result Comment: 3.3 - 4.4 LOW RISK 4.4 - 7.1 AVERAGE RISK 7.1 - 11.0 MODERATE RISK >11.0 HIGH RISK Performed By: #### T SH, LIPID, CMP, T7 #### [facility] [address] [place] [address] [address] Bakari Isidro Cholesterol [Mass/Vol] 219 mg/dL Critically high <=200 [facility] Comment on above: Performed By: #### T SH, LIPID, CMP, T7 #### [facility] [address] [place] [address] [address] Bakari Isidro Cholesterol in HDL [Mass/Vol] 43 mg/dL Normal 40-60 [facility] Comment on above: Performed By: #### T SH, LIPID, CMP, T7 #### [facility] [address] [place] [address] [address] Bakari Isidro Cholesterol in LDL [Mass/Vol] 147.0 mg/dL Normal [facility] Comment on above: Performed By: #### T SH, LIPID, CMP, T7 #### [facility] [address] [place] [address] [address] Bakari Isidro Cholesterol.total /Cholesterol in HDL [Mass ratio] 5.1 {ratio} Normal [facility] Comment on above: Performed By: #### T SH, LIPID, CMP, T7 #### [facility] [address] [place] [address] [address] Bakari Isidro HDL NORMAL > or = 60 mg/dl - LO W CARDIOVASCULAR RISK <40 mg/dl - HIGH CARDIOVASCULAR RISK Normal [facility] Comment on above: Performed By: #### T SH, LIPID, CMP, T7 #### [facility] [address] [place] [address] Dr. Bakari Isidro LDL CALC NORMAL SEE BELOW Normal [facility] Comment on above: Result Comment: <100 mg/dl OPTIMAL 100 - 129 mg/dl NEAR OR ABOVE OPTIMAL 130 - 159 mg/dl BORDERLINE HIGH 160 - 189 mg/dl HIGH >190 mg/dl VERY HIGH Performed By: #### T SH, LIPID, CMP, T7 #### [facility] [address] [place] [address] Dr. Bakari Isidro Triglyceride [Mass/Vol] 145 mg/dL Normal <=150 [facility] Comment on above: Performed By: #### T SH, LIPID, CMP, T7 #### [facility] [address] [place] [address] [address] Bakari Isidro VLDL CALC 29.0 mg/dL Normal [facility] Comment on above: Performed By: #### T SH, LIPID, CMP, T7 #### [facility] [address] [place] [address] Dr. Bakari Isidro PROF 14(COMP METB)on 022 Albumin [Mass/Vol] 3.6 g/dL Normal 3.4-5.0 [facility] Comment on above: Performed By: #### T SH, LIPID, CMP, T7 #### [facility] [address] [place] [address] [address] Bakari Isidro Albumin/Globulin [Mass ratio] 1.1 {ratio} Normal [facility] Comment on above: Performed By: #### T SH, LIPID, CMP, T7 #### [facility] [address] [place] [address] Dr. Bakari Isidro ALP [Catalytic activity/Vol] 129 U/L Critically high 46-116 [facility] Comment on above: Performed By: #### T SH, LIPID, CMP, T7 #### [facility] [address] [place] [address] Dr. Bakari Isidro ALT [Catalytic activity/Vol] 24 U/L Normal 14-59 [facility] Comment on above: Performed By: #### T SH, LIPID, CMP, T7 #### [facility] [address] [place] [address] Dr. Bakari Isidro Anion gap [Moles/Vol] 15.7 mmol/L Normal [facility] Comment on above: Performed By: #### T SH, LIPID, CMP, T7 #### [facility] [address] [place] [address] Dr. Bakari Isidro AST [Catalytic activity/Vol] 13 U/L Critically low 15-37 [facility] Comment on above: Performed By: #### T SH, LIPID, CMP, T7 #### [facility] [address] [place] [address] Dr. Bakari Isidro Bilirubin [Mass/Vol] 0.3 mg/dL Normal 0.2-1.0 [facility] Comment on above: Performed By: #### T SH, LIPID, CMP, T7 #### [facility] [address] [place] [address] Dr. Bakari Isidro Calcium [Mass/Vol] 9.0 mg/dL Normal 8.5-10.1 [facility] Comment on above: Performed By: #### T SH, LIPID, CMP, T7 #### [facility] [address] [place] [address] Dr. Bakari Isidro Chloride [Moles/Vol] 105 mmol/L Normal 98-107 [facility] Comment on above: Performed By: #### T SH, LIPID, CMP, T7 #### [facility] [address] [place] [address] [address] Bakari Isidro CO2 [Moles/Vol] 24.0 mmol/L Normal 21.0-32.0 [facility] Comment on above: Performed By: #### T SH, LIPID, CMP, T7 #### [facility] [address] [place] [address] [address] Bakari Isidro Creatinine [Mass/Vol] 0.55 mg/dL Normal 0.55-1.02 [facility] Comment on above: Performed By: #### T SH, LIPID, CMP, T7 #### [facility] [address] [place] [address] [address] Bakari Isidro EGFR-AF SLOVENIAN >60 Normal >=60 [facility] Comment on above: Performed By: #### T SH, LIPID, CMP, T7 #### [facility] [address] [place] [address] [address] Bakari Isidro EGFR-NON AF SLOVENIAN >60 Normal >=60 [facility] Comment on above: Performed By: #### T SH, LIPID, CMP, T7 #### [facility] [address] [place] [address] [address] Bakari Isidro Globulin (S) [Mass/Vol] 3.2 g/dL Normal [facility] Comment on above: Performed By: #### T SH, LIPID, CMP, T7 #### [facility] [address] [place] [address] [address] Bakari Isidro Glucose [Mass/Vol] 99 mg/dL Normal 74-106 [facility] Comment on above: Performed By: #### T SH, LIPID, CMP, T7 #### [facility] [address] [place] [address] [address] Bakari Isidro Potassium [Moles/Vol] 4.7 mmol/L Normal 3.5-5.1 [facility] Comment on above: Performed By: #### T SH, LIPID, CMP, T7 #### [facility] [address] [place] [address] [address] Bakari Isidro Protein [Mass/Vol] 6.8 g/dL Normal 6.4-8.2 [facility] Comment on above: Performed By: #### T SH, LIPID, CMP, T7 #### [facility] [address] [place] [address] [address] Bakari Isidro Sodium [Moles/Vol] 140 mmol/L Normal 136-145 [facility] Comment on above: Performed By: #### T SH, LIPID, CMP, T7 #### [facility] [address] [place] [address] [address] Bakari Isidro Urea nitrogen [Mass/Vol] 17.0 mg/dL Normal 7.0-18.0 [facility] Comment on above: Performed By: #### T SH, LIPID, CMP, T7 #### [facility] [address] [place] [address] [address] Bakari Isidro Urea nitrogen/Creatini ne [Mass ratio] 30.9 mg/mg Normal [facility] Comment on above: Performed By: #### T SH, LIPID, CMP, T7 #### [facility] [address] [place] [address] Dr. Bakari Isidro TSHon 11-19-2021 TSH 0.483 uIU/mL Normal 0.358-3.740 [facility] Comment on above: Performed By: #### T SH, LIPID, CMP, T7 #### [facility] [address] [place] [address] [address] Bakari Isidro VIT B12 AND FOLATEon 022 Cobalamin (Vitamin B12) [Mass/Vol] 1350.0 pg/mL Critically high 193.0-986.0 [facility] Comment on above: Performed By: #### I JOHAN B12FOL ####[facility] [address] [place] [id number]. Bakari Isidro FOLATE 23.50 ng/mL Normal 8.60-58.90 [facility] Comment on above: Performed By: #### I JOHAN B12FOL ####[facility] [address] [place] [id number]. Bakari Isidro Glucose Auto test strip (Bld ) [Mass/Vol]on 08-28-2021 Glucose [Mass/Vol] 85 mg/dL Normal 70-99 [facility] Comment on above: Performed By: #### 2 340-8 #### [facility] [address] [place] [address] Glucose [Mass/Vol] 85 mg/dL 70 - 99 mg/dL [facility] [address] Interpretation and review of laboratory results Normal [facility] Glucose [Mass/Vol] 85 mg/dL Normal 70-99 [facility] Comment on above: Performed By: #### 2 340-8 #### [facility] [address] [place] [address] Glucose [Mass/Vol] 85 mg/dL 70 - 99 mg/dL [facility] [address] Interpretation and review of laboratory results Normal [facility] XR PELVIS 1-2 VIEWSon 2021 XR PELVIS 1-2 VIEWS EXAMINATION TYPE: XR PELVIS 1-2 VIEWS DATE OF EXAM : 08/28/2021 2:38 PM HISTORY: Postop Right Hip, right hip arthroplasty. COMPARISON: NONE FINDINGS: Surgical changes from a total right hip arthroplasty. Orthopedic prosthetic components are well positioned. Normal alignment. No acute fracture. Remote changes from a total left hip arthroplasty shows normal alignment. IMPRESSION: Surgical changes from a total right hip arthroplasty with normal alignment. -------- FINAL REPORT -------- Dictated By: Sina Nguyen Dictated Date: 08/28/2021 15:40 Assigned Physician: Sina Nguyen Reviewed and Electronically Signed By: Sina Nguyen Signed Date: 08/28/2021 15:40 Workstation ID: [id number] Transcribed By: Self Edit Transcribed Date: 08/28/2021 15:40 Normal [facility] XR Pelvis 1-2 Viewson 2021 Surgical changes fro m a total right hip arthroplasty with normal alignment. -------- FINAL REPORT -------- Dictated By: Sina Nguyen Dictated Date: 08/28/2021 15:40 Assigned Physician: Sina Nguyen Reviewed and Electronically Signed By: Sina Nguyen Signed Date: 08/28/2021 15:40 Workstation ID: [id number] Transcribed By: Self Edit Transcribed Date: 08/28/2021 15:40 JiaThisCRIBE EXAMINATION TYPE: XR PELVIS 1-2 VIEWS DATE OF EXAM : 08/28/2021 2:38 PM HISTORY: Postop Right Hip, right hip arthroplasty. COMPARISON: NONE FINDINGS: Surgical changes from a total right hip arthroplasty. Orthopedic prosthetic components are well positioned. Normal alignment. No acute fracture. Remote changes from a total left hip arthroplasty shows normal alignment. POWERSCRIBE Sina Nguyen M D - 08/28/2021 EXAMINATION TYPE: XR PELVIS 1-2 VIEWS DATE OF EXAM : 08/28/2021 2:38 PM HISTORY: Postop Right Hip, right hip arthroplasty. COMPARISON: NONE FINDINGS: Surgical changes from a total right hip arthroplasty. Orthopedic prosthetic components are well positioned. Normal alignment. No acute fracture. Remote changes from a total left hip arthroplasty shows normal alignment. IMPRESSION: Surgical changes from a total right hip arthroplasty with normal alignment. -------- FINAL REPORT -------- Dictated By: Sina Nguyen Dictated Date: 08/28/2021 15:40 Assigned Physician: Sina Nguyen Reviewed and Electronically Signed By: Sina Nguyen Signed Date: 08/28/2021 15:40 Workstation ID: [id number] Transcribed By: Self Edit Transcribed Date: 08/28/2021 15:40 [facility] [address] Radiology Study observation (narrative) [employer] XR Pelvis 1-2 ViewsOrdered B y: Sina Nguyen on 08-28-2021 [employer] Work Phone: Covid-19 PCR (CVDTBH)on 08-11 SARS-CoV-2 (COVID-19) RNA HELLEN+probe Ql (Unsp spec) Not detected Normal NOT DETECTED [facility] Comment on above: Result Comment: This test is not yet approved or cleared by the [place] FDA. When there are no FDA-approved or cleared tests available, and other criteria are met, FDA can make tests available under an emergency access mechanism called an Emergency Use Authorization (EUA). The EUA for this test is supported by the Quantity Surveyor of Health and Human Service's (HHS's) declaration that circumstances exist to justify the emergency use of in vitro diagnostics for the detection and/or diagnosis of the virus that causes COVID-19. This EUA will remain in effect (meaning this test can be used) for the duration of the COVID-19 declaration justifying emergency of IVDs, unless it is terminated or revoked by FDA (after which the test may no longer be used). When diagnostic testing is negative, the possibility of a false negative should be considered in the context of a patient's recent exposures and the presence of clinical signs and symptoms consistent with SARS-CoV-2. Performed By: #### C VDTB #### [facility] [address] [place] [address] Dr. Bakari Isidro Basic metabolic 2000 panelon 08-02-2021 Anion gap [Moles/Vol] 10 mmol/L Normal 6-18 [facility] Comment on above: Performed By: #### 2 4321-2 #### [facility] [address] [facility] [place] [address] Calcium [Mass/Vol] 9.6 mg/dL Normal 8.9-10.3 [facility] Comment on above: Performed By: #### 2 4321-2 #### [facility] [address] [facility] [place] [address] Chloride [Moles/Vol] 103 mmol/L Normal 98-107 [facility] Comment on above: Performed By: #### 2 4321-2 #### [facility] [address] [facility] [place] [address] CO2 [Moles/Vol] 27 mmol/L Normal 22-32 [facility] Comment on above: Performed By: #### 2 4321-2 #### [facility] [address] [place] [address] Creatinine [Mass/Vol] 0.60 mg/dL Normal 0.60-1.30 [facility] Comment on above: Performed By: #### 2 4321-2 #### [facility] [address] [place] [address] GFR/1.73 sq M.predicted among non-blacks MDRD (S/P/Bld) [Vol rate/Area] 101 mL/min/{1.73_m2} Normal [facility] Comment on above: Performed By: #### 2 4321-2 #### [facility] [address] [place] [address] Glucose [Mass/Vol] 86 mg/dL Normal 70-99 [facility] Comment on above: Performed By: #### 2 4321-2 #### [facility] [address] [facility] [place] [address] Potassium [Moles/Vol] 4.5 mmol/L Normal 3.6-5.1 [facility] Comment on above: Performed By: #### 2 4321-2 #### [facility] [address] [facility] [place] [address] Sodium [Moles/Vol] 140 mmol/L Normal 136-145 [facility] Comment on above: Performed By: #### 2 4321-2 #### [facility] [address] [place] [address] Urea nitrogen [Mass/Vol] 28 mg/dL High 8-20 [facility] Comment on above: Performed By: #### 2 4321-2 #### [facility] [address] [place] [address] Urea nitrogen/Creatini ne [Mass ratio] 46.7 mg/mg High 12.0-20.0 [facility] Comment on above: Performed By: #### 2 4321-2 #### [facility] [address] [facility] [place] [address] Hemogram and platelets WO di fferential panel (Bld)on 08-02-2021 Basophils (Bld) [#/Vol] 0.10 10*3/uL Normal 0.00-0.20 [facility] Comment on above: Performed By: #### 2 4317-0 #### [facility] [address] [place] [address] Basophils/100 WBC (Bld) 0.6 % Normal 0.0-2.0 [facility] Comment on above: Performed By: #### 2 4317-0 #### [facility] [address] [place] [address] Eosinophils (Bld) [#/Vol] 0.10 10*3/uL Normal 0.00-0.70 [facility] Comment on above: Performed By: #### 2 4317-0 #### [facility] [address] [place] [address] Eosinophils/100 WBC (Bld) 1.6 % Normal 0.0-7.0 [facility] Comment on above: Performed By: #### 2 4317-0 #### [facility] [address] [place] [address] 66144 Erythrocyte distribution width (RBC) [Ratio] 13.8 % Normal 11.0-14.8 [facility] Comment on above: Performed By: #### 2 4317-0 #### [facility] [address] [place] [address] 17832 Hematocrit (Bld) [Volume fraction] 40.1 % Normal 35.0-45.0 [facility] Comment on above: Performed By: #### 2 4317-0 #### [facility] [address] [place] [address] 60533 Hemoglobin (Bld) [Mass/Vol] 13.1 g/dL Normal 12.0-16.0 [facility] Comment on above: Performed By: #### 2 4317-0 #### [facility] [address] [place] [address] Lymphocytes (Bld) [#/Vol] 1.80 10*3/uL Normal 1.00-4.80 [facility] Comment on above: Performed By: #### 2 4317-0 #### [facility] [address] [place] [address] 79201 Lymphocytes/100 WBC (Bld) 22.7 % Normal 22.0-44.0 [facility] Comment on above: Performed By: #### 2 4317-0 #### [facility] [address] [place] [address] 67432 MCH 28.1 pcg Normal 27.0-34.0 [facility] Comment on above: Performed By: #### 2 4317-0 #### [facility] [address] [place] [address] 39461 MCHC (RBC) [Mass/Vol] 32.7 g/dL Normal 32.0-36.0 [facility] Comment on above: Performed By: #### 2 4317-0 #### [facility] [address] [place] [address] 51654 MCV (RBC) [Entitic vol] 86.0 fL Normal 80.0-97.0 [facility] Comment on above: Performed By: #### 2 4317-0 #### [facility] [address] [place] [address] 30115 Monocytes (Bld) [#/Vol] 0.50 10*3/uL Normal 0.00-0.90 [facility] Comment on above: Performed By: #### 2 4317-0 #### [facility] [address] [place] [address] 64421 Monocytes/100 WBC (Bld) 6.3 % Normal 0.0-12.0 [facility] Comment on above: Performed By: #### 2 4317-0 #### [facility] [address] [place] [address] 19029 Neutrophils Absolute 5.30 K/mcL Normal 1.80-7.70 [facility] Comment on above: Performed By: #### 2 4317-0 #### [facility] [address] [place] [address] 46645 Neutrophils/100 WBC (Bld) 68.8 % Normal 40.0-70.0 [facility] Comment on above: Performed By: #### 2 4317-0 #### [facility] [address] [place] [address] 61869 Platelet mean volume (Bld) [Entitic vol] 8.6 fL Normal 6.2-12.1 [facility] Comment on above: Performed By: #### 2 4317-0 #### [facility] [address] [place] [address] 69613 Platelets (Bld) [#/Vol] 290 10*3/uL Normal 142-424 [facility] Comment on above: Performed By: #### 2 4317-0 #### [facility] [address] [place] [address] 66339 RBC (Bld) [#/Vol] 4.66 10*6/uL Normal 3.80-5.10 [facility] Comment on above: Performed By: #### 2 4317-0 #### [facility] [address] [place] [address] 27683 WBC (Bld) [#/Vol] 7.8 10*3/uL Normal 4.6-10.2 [facility] Comment on above: Performed By: #### 2 4317-0 #### [facility] [address] [place] [address] Nuclear IgG IA Ql (S)on 07-13 Bacteria identified Cx Nom (U) 1 ORGANISM 202 Abnormal >[id number] CFU/mL Escherichia coli The organism value for this result has been updated. These results have been appended to the previously preliminary verified report. 1 ORGANISM Antibiotic Result Intrp Ampicillin Susc Islt <=2 ug/ml Susceptible Ampicillin+Sulbac Susc Islt <=2 ug/ml Susceptible ceFAZolin Susc Islt <=4 ug/ml Susceptible cefTRIAXone Susc Islt <=0.25 ug/ml Susceptible Gentamicin Susc Islt <=1 ug/ml Susceptible Ciprofloxacin Susc Islt <=0.25 ug/ml Susceptible Nitrofurantoin Susc Islt <=16 ug/ml Susceptible TMP SMX Susc Islt <=20 ug/ml Susceptible Invalid Interpretation Code [facility] Comment on above: Performed By: #### 2 9950-3 #### [facility] [address] [place] [address] Bacteria, Urine Moderate Abnormal None [facility] Comment on above: Performed By: #### 2 50-3 #### [facility] [address] [place] [address] Calcium Oxalate Crystals, Urine Occasional Abnormal None [facility] Comment on above: Performed By: #### 2 50-3 #### [facility] [address] [place] [address] RBC, Urine None Seen Normal 0-5 [facility] Comment on above: Performed By: #### 2 9950-3 #### [facility] [address] [place] [address] WBC, Urine 0-5 Normal 0-5 [facility] Comment on above: Performed By: #### 2 9950-3 #### [facility] [address] [place] [address] CNCOon 04-26-2021 CNCO Letter Text Normal [facility] Chadd 04-10-2021 CNPN Telephone ([facility]) JESSICA DILLARD ([id number]) 1965 F Date Time Provider Department 04/10/21 [place] [facility] During your visit today, we recorded the following information about you: Wendie Jean 04/10/2021 11:38 AM Signed Patient called and left message regarding having post operative sleeve questions from 03/29 and concerns regarding a possible urinary tract infection return call to [phone] Barbara Dan RN 04/10/2021 1:15 PM Signed Returned phone call. There was no answer so I left a voicemail message to return my call. Allergies As of Date: 04/10/2021 Noted Allergy Reaction CIPROFLOXACIN 10/19/2020 16 - Unknown Date Reviewed: 03/31/2021 Reviewed by: Deepika Porras, MARCELA - Fully Assessed Reason for Visit: Post Op [174] Prescriptions as of 05/06/2021 - pantoprazole DR (PROTONIX) 40 mg tablet Take 1 tablet by mouth once daily. - gabapentin (NEURONTIN) 100 mg capsule Take 1 capsule by mouth three times daily for 14 days. - scopolamine (TRANSDERM-SCOP) patch 1.5 mg/72 hr (1 mg over 3 days) Apply 1 Patch as directed every 72 hours. Apply one patch behind the ear every 3 days - ursodiol (ACTIGALL) 300 mg capsule Take 1 capsule by mouth twice daily. - ondansetron orally disintegrating (ZOFRAN ODT) 4 mg disintegrating tablet Take 1 tablet by mouth every 8 hours as needed for nausea/vomiting. - baclofen (LIORESAL) 10 mg tablet - cholecalciferol, vitamin D3, 1,250 mcg (50,000 unit) tab Take one tablet once a week for 12 weeks - VITAMIN B COMPLEX ORAL Take by mouth once daily. - melatonin 10 mg cap Take 10 mg by mouth once daily. - Coenzyme Q10 (CO Q-10) 200 mg cap Take 200 mg by mouth once daily. - magnesium oxide (MAG-OX) 400 mg (241.3 mg magnesium) tablet Take 400 mg by mouth once daily. - omega-3 fatty acids (FISH OIL CONCENTRATE) 1,000 mg cap Take 1 g by mouth once daily. - MULTIVITAMIN ORAL Take by mouth once daily. - calcium carbonate-vitamin D3 (OYSTER SHELL CALCIUM-VIT D3) 500 mg(1,250mg) -200 unit pwpk Take 200 mg by mouth twice daily. - LACTOBACILLUS ACIDOPHILUS ORAL Take by mouth once daily. - HYDROcodone-acetaminophen (NORCO) 5-325 mg per tablet Take 1 tablet by mouth twice daily. - ibuprofen (MOTRIN) 800 mg tablet Take 800 mg by mouth every 6 hours as needed. Problem List As Of Date 04/10/2021 Noted Resolved Elevated glucose [R73.09] 12/12/2020 GERD (gastroesophageal reflux disease) [K21.9] 12/12/2020 Adrenal mass (HCC) [E27.8] 12/12/2020 BMI 45.0-49.9, adult (HCC) [Z68.42] 12/12/2020 Hx of partial adrenalectomy (HCC) [E89.6] 01/07/2021 Obesity [E66.9] 03/29/2021 Encounter Status:Closed by WENDIE GLEASON on 05/06/21 Normal [facility] OPERATIVE NOon 04-10-2021 OPERATIVE NO HNO ID: [id number] Author: Paul Nj MD Service: General Surgery Author Type: Physician Type: Operative Report Filed: 04/10/2021 11:55 AM Note Text: [facility] - Operative Report JESSICA DILLARD : 1965 AGE: 55. SEX: F PATIENT TYPE: I HOSP SVC: GENS LOCATION: [facility] ATTENDING PHYSICIAN: Paul Nj MD CSN NUMBER: [id number] DATE OF SURGERY/PROCEDURE: 03/29/2021 INCISION/PROCEDURE START TIME: 10:33 AM INCISION CLOSE/PROCEDURE END TIME: 11:30 AM PREOPERATIVE DIAGNOSIS: 1. Morbid obesity with a BMI of 45. 2. Hyperlipidemia. 3. Hypertension. 4. Obstructive sleep apnea. POSTOPERATIVE DIAGNOSIS: 1. Morbid obesity with a BMI of 45. 2. Hyperlipidemia. 3. Hypertension. 4. Obstructive sleep apnea. SURGEON: Paul Nj MD BUSINESS AREA DIRECTOR: Pb Upton MD SURGERY/PROCEDURE: 1. Laparoscopic sleeve gastrectomy. 2. Intraoperative esophagogastroduodenoscopy and provoked leak test. 3. Bilateral TAP block using bupivacaine. ANESTHESIA: General endotracheal anesthesia. COMPLICATIONS: None. ESTIMATED BLOOD LOSS: Less than 20 mL. WOUND CLASS: 2. INDICATION: Patient is a pleasant 55-year-old female with a previous history of laparoscopic right adrenalectomy and multiple medical comorbidities, who desired to undergo weight loss surgery. The patient specifically decided to undergo sleeve gastrectomy. She did have mild GERD symptoms, but wanted to proceed with a sleeve gastrectomy. After discussion of risks, benefits, and alternatives, her preoperative endoscopy did not reveal any evidence of esophagitis. The patient was scheduled for surgery. FINDINGS: 1. An uncomplicated sleeve gastrectomy was performed. 2. Intraoperative EGD and provoked leak test did not reveal any evidence of leak, bleed, kinks, or other complications.. 3. Bilateral TAP block was performed at the end of the operation. DESCRIPTION OF PROCEDURE: The patient was brought to the operating room, placed supine on the operating table. General anesthesia was induced. The abdomen was prepped and draped in usual sterile surgical fashion. A 5 mm left upper quadrant incision was made. Entry was gained to the abdomen using standard Optiview technique. Under direct vision, a 5 mm port was placed in the left supraumbilical region and 15 and 5 mm ports were placed on the right side. A 5 mm epigastric incision was made. Marie retractor was placed. The patient was placed in steep head-up position. The gastrocolic omentum was transected using the LigaSure all the way to the GE junction. The GE junction fat pad was noted below the hiatus. The left brianna was dissected out. No evidence of any posterior hiatal hernia was noted. A 36-[place] Islander bougie was passed in the stomach. Multiple firings of Endo-NAE black load with a SeamGuard followed by a purple load was used to create the sleeve gastrectomy. The specimen was brought out through the 15 mm port site. The operative bed was inspected. No evidence of any bleeding or other complications noted. The pylorus was clamped. The gastroscope was introduced in the stomach and an endoscopy was performed. This did not reveal any evidence of leaks, kinks, obstructions, acute angulations, or other complications. The stomach was desufflated, scope was removed. The abdomen was inspected and was without complications. Bilateral TAP block was performed. Using bupivacaine, the 15 mm port site was closed using Vicryl. All the ports were removed under direct vision. The fascia was closed using pre-placed sutures. Skin was closed using Monocryl and SureClose. Patient tolerated the procedure well without any complications. I was present and scrubbed in throughout the operation. Pual Nj MD TA:[id number] /[id number] [facility] CNCOon 04-01-2021 CNCO Letter Text Normal [facility] CNDSon 03-31-2021 [facility] HNO ID: [id number] Author: Titus Colon MD Service: General Surgery Author Type: Resident Type: Discharge Summary Filed: 03/31/2021 8:49 AM Note Text: Attestation signed by Paul Nj MD at 04/08/2021 10:52 AM GENERAL SURGERY DISCHARGE SUMMARY PATIENT NAME: Jessica Dillard ADMISSION DATE: 03/29/2021 DISCHARGE DATE: 03/31/2021 ATTENDING PHYSICIAN: Paul Nj MD Code Status: Not on file Highest Readmission Risk Score: 11 The 30 day readmissions risk score is derived from an internally validated risk model which evaluates patient level characteristics, utilization history, medication orders and lab results up until the day of discharge. Patients with a score of 40 or above are considered highest risk for readmission. Specific patient level drivers will be listed at the bottom of the summary. REASON FOR HOSPITALIZATION: To undergo scheduled surgery OPERATIONS DURING HOSPITALIZATION: Procedure(s) (LRB): LAPAROSCOPIC LONGITUDINAL GASTRECTOMY, GASTRIC RESTRICTIVE PROCEDURE (N/A) PROCEDURES DURING HOSPITALIZATION: EGD HOSPITAL COURSE: Jessica Dillard is a 55 year old with PMHx obesity (BMI 47), GERD, adrenal mass who presented to the hospital on 03/29/2021 to undergo LSG. By 03/31/2021 , patient was able to tolerate a bariatric phase 2 diet without nausea/vomiting, have return of bowel function, ambulate at baseline mobility, and void independently. Patient was evaluated as stable and discharged home. Patient was amenable to this plan. Active Hospital Problems Diagnosis Date Noted - Obesity 03/29/2021 Resolved Hospital Problems No resolved problems to display. Transitions of Care Critical Issues: NEW BASELINE FOR PATIENT: Post bariatric surgery LABS AND PROCEDURES PENDING AT DISCHARGE: No pending results. CONSULTING TEAMS DURING HOSPITALIZATION: None Treatment Team: Attending Provider: Paul Nj MD PATIENT CONDITION AT DISCHARGE: Stable DISCHARGE DISPOSITION: Home with Self Care INFORMATION PROVIDED TO PATIENT: Discharge instructions DIET: Bariatric Phase 2 diet: Full liquid, carbohydrate controlled ACTIVITY: No baths or showers for: tomorrow No walking restrictions WOUND/SURGICAL SITE CARE: None ALLERGIES Allergen Reactions - Ciprofloxacin Unknown DISCHARGE MEDICATION: Current Discharge Medication List START taking these medications promethazine (PHENERGAN) 25 mg Take 25 mg by mouth every 6 hours as needed for nausea/vomiting. Qty: 28 tablet Refills: 0 CONTINUE these medications which have NOT CHANGED baclofen (LIORESAL) [address] (PROTONIX) 40 mg Take 40 mg by mouth once daily. Qty: 90 tablet Refills: 0 VITAMIN B COMPLEX ORAL Take by mouth once daily. magnesium oxide (MAG-OX) 400 mg Take 400 mg by mouth once daily. OYSTER SHELL CALCIUM-VIT D3 200 mg Take 200 mg by mouth twice daily. HYDROcodone-acetaminophen (NORCO) 1 tablet Take 1 tablet by mouth twice daily. ibuprofen (MOTRIN) 800 mg Take 800 mg by mouth every 6 hours as needed. Refills: 3 gabapentin (NEURONTIN) 100 mg Take 100 mg by mouth three times daily. Qty: 42 capsule Refills: 0 scopolamine (TRANSDERM-SCOP) 1 Patch Apply 1 Patch as directed every 72 hours. Apply one patch behind the ear every 3 days Qty: 5 Patch Refills: 1 ursodiol (ACTIGALL) 300 mg Take 300 mg by mouth twice daily. Qty: 60 capsule Refills: 5 ondansetron orally disintegrating (ZOFRAN ODT) 4 mg Take 4 mg by mouth every 8 hours as needed for nausea/vomiting. Qty: 90 tablet Refills: 2 cholecalciferol, vitamin D3, 1,250 mcg (50,000 unit) tab Take one tablet once a week for 12 weeks Qty: 12 tablet Refills: 0 melatonin 10 mg Take 10 mg by mouth once daily. Coenzyme Q10 200 mg Take 200 mg by mouth once daily. omega-3 fatty acids 1 g Take 1 g by mouth once daily. MULTIVITAMIN ORAL Take by mouth once daily. LACTOBACILLUS ACIDOPHILUS ORAL Take by mouth once daily. PLAN OF CARE: Plan of care discussed with Provider, RN, Patient FUTURE APPOINTMENTS: Future Appointments Date Time Provider Department Center 04/11/2021 4:10 PM Paul Nj MD [id number] [facility] 05/01/2021 9:00 AM Barbara Martines, PhD [facility] 05/09/2021 4:00 PM Paul Nj MD [id number] [facility] 05/10/2021 2:[address] [facility] The patient's risk for 30-day readmission is determined using the following contributing factors: Pt variables contributing to increased readmission risk: 25 Most Recent BUN Result 13 Active Medication Orders 1 Insurance - Medicaid 1 Discharge Disposition - Home 1 Active Anticoagulant 1 Number of Hospitalizations (12 mos.) TIME OF CARE: Discharge Management: I personally spent greater than 30 minutes involved in the discharge management of this (more content not included)... Normal [facility] NURSING PROGon 03-31-2021 NURSING PROG HNO ID: [id number] Author: Deepika Porras RN Service: ? Author Type: Registered Nurse Type: Nursing Progress Note Filed: 03/31/2021 1:36 AM Note Text: Nursing Progress Note Patient Name: Jessica Dillard Patient Location: / 1999 (late entry) Patient alert and oriented times three, up to the bathroom with one assist, standby. O2 1L NC in use and pulse oxiemetry 95-98. when patient removes oxygen and ambulates oxygen desats in the 80 s, continuous pulse oximetry maintained. encouraged increase use of incentive spirometry and patient using with good effort. Taking sips of water tolerating well and bites of jello, denies nausea at this time. Abdomen soft, tender bowel sounds hypoactive denies flatus no BM, voiding clear yellow urine. Lap sites to abdomen open to air with topical adhesive. Call light in reach and bed in low locked position and bed alarm in use. 0045 Patient medicated with Compazine for nausea no vomiting. Patient states the Zofran was not as effective as Compazine. This note was completed by: [facility]ras [facility] HNO ID: [id number] Author: Titus Colon MD Service: General Surgery Author Type: Resident Type: Discharge Summary Filed: 03/30/2021 9:18 AM Note Text: Attestation signed by Davin Kaminski MD at 03/30/2021 6:15 PM Attending Note I evaluated the patient and personally participated in the [place] components. I agree with the resident's findings and plan as documented and have discussed the case and management of the patient's care with the resident. POD 1 Lap sleeve, feeling well and motivated for DC to home this afternoon Signature: Davin Kaminski MD Date: 03/30/2021 Time: 12:00 GENERAL SURGERY DISCHARGE SUMMARY PATIENT NAME: Jessica Dillard ADMISSION DATE: 03/29/2021 DISCHARGE DATE: 03/30/2021 ATTENDING PHYSICIAN: Paul Nj MD Code Status: Not on file Highest Readmission Risk Score: 11 The 30 day readmissions risk score is derived from an internally validated risk model which evaluates patient level characteristics, utilization history, medication orders and lab results up until the day of discharge. Patients with a score of 40 or above are considered highest risk for readmission. Specific patient level drivers will be listed at the bottom of the summary. REASON FOR HOSPITALIZATION: To undergo scheduled surgery OPERATIONS DURING HOSPITALIZATION: Procedure(s) (LRB): LAPAROSCOPIC LONGITUDINAL GASTRECTOMY, GASTRIC RESTRICTIVE PROCEDURE (N/A) PROCEDURES DURING HOSPITALIZATION: EGD HOSPITAL COURSE: Jessica Dillard is a 55 year old with PMHx obesity (BMI 47), GERD, adrenal mass who presented to the hospital on 03/29/2021 to undergo LSG. By 03/30/2021 , patient was able to tolerate a bariatric phase 2 diet without nausea/vomiting, have return of bowel function, ambulate at baseline mobility, and void independently. Patient was evaluated as stable and discharged home. Patient was amenable to this plan. Active Hospital Problems Diagnosis Date Noted - Obesity 03/29/2021 Resolved Hospital Problems No resolved problems to display. Transitions of Care Critical Issues: NEW BASELINE FOR PATIENT: Post bariatric surgery LABS AND PROCEDURES PENDING AT DISCHARGE: No pending results. CONSULTING TEAMS DURING HOSPITALIZATION: None Treatment Team: Attending Provider: Paul Nj MD PATIENT CONDITION AT DISCHARGE: Stable DISCHARGE DISPOSITION: Home with Self Care INFORMATION PROVIDED TO PATIENT: Discharge instructions DIET: Bariatric Phase 2 diet: Full liquid, carbohydrate controlled ACTIVITY: No baths or showers for: tomorrow No walking restrictions WOUND/SURGICAL SITE CARE: None ALLERGIES Allergen Reactions - Ciprofloxacin Unknown DISCHARGE MEDICATION: Current Discharge Medication List CONTINUE these medications which have NOT CHANGED baclofen (LIORESAL) [address] (PROTONIX) 40 mg Take 40 mg by mouth once daily. Qty: 90 tablet Refills: 0 VITAMIN B COMPLEX ORAL Take by mouth once daily. magnesium oxide (MAG-OX) 400 mg Take 400 mg by mouth once daily. OYSTER SHELL CALCIUM-VIT D3 200 mg Take 200 mg by mouth twice daily. HYDROcodone-acetaminophen (NORCO) 1 tablet Take 1 tablet by mouth twice daily. ibuprofen (MOTRIN) 800 mg Take 800 mg by mouth every 6 hours as needed. Refills: 3 gabapentin (NEURONTIN) 100 mg Take 100 mg by mouth three times daily. Qty: 42 capsule Refills: 0 scopolamine (TRANSDERM-SCOP) 1 Patch Apply 1 Patch as directed every 72 hours. Apply one patch behind the ear every 3 days Qty: 5 Patch Refills: 1 ursodiol (ACTIGALL) 300 mg Take 300 mg by mouth twice daily. Qty: 60 capsule Refills: 5 ondansetron orally disintegrating (ZOFRAN ODT) 4 mg Take 4 mg by mouth every 8 hours as needed for nausea/vomiting. Qty: 90 tablet Refills: 2 cholecalciferol, vitamin D3, 1,250 mcg (50,000 unit) tab Take one tablet once a week for 12 weeks Qty: 12 tablet Refills: 0 melatonin 10 mg Take 10 mg by mouth once daily. Coenzyme Q10 200 mg Take 200 mg by mouth once daily. omega-3 fatty acids 1 g Take 1 g by mouth once daily. MULTIVITAMIN ORAL Take by mouth once daily. LACTOBACILLUS ACIDOPHILUS ORAL Take by mouth once daily. PLAN OF CARE: Plan of care discussed with Provider, RN, Patient FUTURE APPOINTMENTS: Future Appointments Date Time Provider Department Center 04/11/2021 4:10 PM Paul Nj MD [id number] [facility] 05/01/2021 9:00 AM Barbara Martines, PhD [facility] 05/09/2021 4:00 PM Paul Nj MD [id number] [facility] 05/10/2021 2:30 PM ROSALIND Mo The patient's risk for 30-day readmission is determined using the following contributing factors: Pt variables contributing to increased readmission risk: 25 Most Recent BUN Result 13 Active Medication Orders 1 Insurance - Medicaid 1 Active (more content not included)... Normal [facility] CONSULTon 03-30-2021 CONSULT HNO ID: [id number] Author: Clifton Forde MD Service: General Surgery Author Type: Resident Type: Consults Filed: 03/30/2021 8:27 AM Note Text: PROGRESS NOTES - SURGICAL SERVICES Jessica Dillard [id number] ASSESSMENT/PLAN: 55 year old year old female with PMH of obesity (BMI 47), GERD, adrenal mass s/p lap SG on 03/30. Clinically and HD stable recovering in the RNF. Mild abdominal distention but no N/V. Plan: Neuro: Pain control: scheduled tylenol, gabapentin Cardiac: Monitor vitals. Respiratory: Incentive spirometry. Minimize use of supplemental O2. CPAP GI: Diet: Phase 2. PRN Zofran. Scop patch. Protonix : monitor urine output. I/Os. FEN: IV fluids LR at 100 cc/hr. Electrolytes replete as needed. Heme: No clinical evidence of bleeding. Endo: SSI 1. Prophylaxis: SCDs, LVX Dispo: DC pending PO tolerance Plan to be discussed with Attending, Dr. Yamilex Forde MD PGY-2 General Surgery Surgery [place] Team [phone] weekdays. Or [phone] weeknights (6pm - 6am) and weekends. SUBJECTIVE No acute events overnight Pain is well controlled on current regimen. Ambulating well. Bloated Tolerated water with no n/v OBJECTIVE PHYSICAL EXAM: BP 129/65 Pulse 102 Temp (Src) 98.8 (Oral) Resp 20 Ht 5' 4 (1.63m) Wt 266 lb (120.7kg) SpO2 94% BMI 45.64 kg/(m2). O2 Therapy: Nasal Cannula, Liters: 1.00 GENERAL: awake, alert, no distress, cooperative SKIN: Skin color, texture, turgor normal. CARDIAC: Regular rate and rhythm, extremities warm and well perfused LUNGS: Non-labored breathing, no shortness of breath ABDOMEN: soft, appropriately tender, mildly distended, Incisions c/d/i no surrounding erythema. DATA: Date 03/29/21699 - 03/30/21 0659 03/30/21 07 - 03/31/21 0659 Shift [id number] 9969-1706 [id number] 24 Hour Total [id number] 24 Hour Total INTAKE PO 200 150 350 PO 200 150 350 IV 1150 1150 Volume (mL) (ceFAZolin iv piggyback 2 g in D5W (iso-osmotic) 100 mL (ANCEF)) 100 100 Volume (mL) (magnesium sulfate 2 g in NaCl 0.9% 100 mL) 100 100 Volume (mL) (lactated ringers iv infusion) 950 950 Shift Total 2425 002 6652 OUTPUT Urine 200 400 600 Void (ml) 200 400 600 OR Urine Output 0 0 Urine Not Saved. 1 x 1 x 2 x Emesis 0 0 Emesis (ml) 0 0 # of BMs Number of BMs 0 x 0 x 0 x Shift Total 200 400 600 Weight (kg) 120.7 120.7 120.7 120.7 120.7 120.7 120.7 120.7 Diagnostic tests reviewed for today's visit: Most recent labs and imaging results. CBC, Coags, BMP, Mg, Phos [facility] NURSING PROGon 03-30-2021 NURSING PROG HNO ID: [id number] Author: Theresa Rosas RN Service: ? Author Type: Registered Nurse Type: Nursing Progress Note Filed: 03/30/2021 7:21 PM Note Text: Daily Note: 0920: (late entry) Pt aANDox3; no flatus and no bm states pain is at a 3-4, Pt has c/o of nANDv. Vomited 25cc in emesis bag; paged team. Administered zofran. Will continue to monitor. 1100: (late entry) Pt has c/o of nANDv, vomited and unmeasurable due to tissues in emesis bag. Pt also has productive cough with greenish/yellow sputum. Paged team 1346: (late entry) administered compazine. [facility] NURSING PROG HNO ID: [id number] Author: Cookie Capellan RN Service: ? Author Type: Registered Nurse Type: Nursing Progress Note Filed: 03/30/2021 3:41 AM Note Text: Nursing Progress Note Patient Name: Jessica Dillard Patient Location: [id number]/[id number] Daily Note: 0339: Pt's HR tachy at rest, this RN witnessed it as high as 112. Temp 99.3 F. Text page sent to [facility] to inform. This note was completed by: Cookie Capellan [facility] ANES POSTPROC EVALon 021 ANES POSTPROC EVAL HNO ID: [id number] Author: Gary Acosta MD Service: Anesthesiology Author Type: Anesthesiologist Type: Anesthesia Postprocedure Evaluation Filed: 03/29/2021 12:16 PM Note Text: POST ANESTHESIA EVALUATION NOTE : 1965 Procedure Summary Date: 03/29/21 Room / Location: OR10 / OR Anesthesia Start: 1010 Anesthesia Stop: 1143 Procedure: LAPAROSCOPIC LONGITUDINAL GASTRECTOMY, GASTRIC RESTRICTIVE PROCEDURE (N/A Abdomen) Diagnosis: Morbidly obese (HCC) (Morbidly obese (HCC) [E66.01]) Surgeons: Paul Nj MD Responsible Provider: Tiburcio Eisenberg MD Anesthesia Type: general ASA Status: 3 Anesthesia Type: general Airway Type: ETT Last Vitals Vitals Value Taken Time BP 131/58 03/29/21 1200 Temp 36.3 ?C (97.3 ?F) 03/29/21 1145 Pulse 76 03/29/21 1215 Resp 10 03/29/21 1215 SpO2 95 % 03/29/21 1215 Vitals shown include unvalidated device data. Post Anesthesia Patient Status Patient Evaluation: PACU. PACU/ICU Patient Condition: stable. Anticipated Disposition: phase 2 then home. Neurological Status: aware and responsive. Pulmonary Status: breathing comfortably on room air Airway Control: returned to baseline unsupported. Cardiovascular Status: stable. Pain Management: clinically adequate Postoperative Hydration: acceptable. Intraoperative Events: no significant anesthesia events Recommendation: continue current plan of care. Anesthesia Observations No Documentation SIGNATURE: Gary Acosta MD PATIENT NAME: Jessica Dillard DATE: March 29, 2021 TIME: 12:15 PM CSN: [id number] [facility] ANES PRE-OPon 03-29-2021 ANES PRE-OP HNO ID: [id number] Author: Tiburcio Eisenberg MD Service: Anesthesiology Author Type: Anesthesiologist Type: Anesthesia Preprocedure Evaluation Filed: 03/29/2021 9:36 AM Note Text: ANESTHESIOLOGY DAY OF SURGERY NOTE : 1965 Procedure Information Date/Time: 03/29/21944 Procedure: LAPAROSCOPIC LONGITUDINAL GASTRECTOMY, GASTRIC RESTRICTIVE PROCEDURE (N/A ) Location: OR / OR Surgeons: Paul Nj MD Estimated body mass index is 46.77 kg/m? as calculated from the following: Height as of 03/22/21: 160 cm (5' 3 ). Weight as of 03/22/21: 119.7 kg (264 lb). Most recent hematocrit and potassium results: Hematocrit 41.9 03/22/2021 Potassium 4.8 03/22/2021 Relevant Problems GI (+) GERD (gastroesophageal reflux disease) I - PHYSICAL EVALUATION AIRWAY Patient intubated: No. Tracheostomy tube not present Mallampati: II. TM distance: >3 FB. Neck ROM: full ROM without neurological symptoms. Mouth opening: adequate. Short neck: no. Thick neck: no DENTAL Dental findings: missing tooth/teeth. Dentures, upper: complete. II - ANESTHESIA PLAN ASA Score: 3 Anesthetic Plan: general Airway type: ETT The patient is not a current smoker. NPO Status: adequate Monitoring plan: standard ASA. Postoperative analgesic plan: multimodal analgesia. Anesthetic Risks, Benefits, Alternatives, Personnel Discussed. Consent obtained from: patient.Patient / Surrogate agrees to blood products: Yes DNR status not reviewed with patient and/or family prior to surgery. Significant changes in the patient condition since the History and Physical, not otherwise documented in primary service progress note: no. Potential Anesthesia issues that may suggest increased risk of complications or contraindication to planned procedure: none. Vitals Value Taken Time BP 118/45 03/29/21 0910 Pulse 92 03/29/21 0910 Resp 18 03/29/21 0910 Temp 36.3 ?C (97.3 ?F) 12/17/21 0910 SpO2 98 % 03/29/21 0910 Facility-Administered Medications as of 03/29/2021 Medication Dose Route Frequency - lidocaine 10 mg/mL (1 %) 1-2 mg injection (XYLOCAINE) 0.1-0.2 mL INTRADERMAL PRN - lactated ringers iv infusion 5-30 mL/hr INTRAVENOUS CONTINUOUS - heparin 5,000 Units injection 5,000 Units SUBCUTANEOUS ONCE - ceFAZolin iv piggyback 2 g in D5W (iso-osmotic) 100 mL (ANCEF) 2 g INTRAVENOUS Pre-Op Once Outpatient Medications as of 03/29/2021 Medication Sig - pantoprazole DR (PROTONIX) 40 mg tablet Take 1 tablet by mouth once daily. - VITAMIN B COMPLEX ORAL Take by mouth once daily. - magnesium oxide (MAG-OX) 400 mg (241.3 mg magnesium) tablet Take 400 mg by mouth once daily. - calcium carbonate-vitamin D3 (OYSTER SHELL CALCIUM-VIT D3) 500 mg(1,250mg) -200 unit pwpk Take 200 mg by mouth twice daily. - HYDROcodone-acetaminophen (NORCO) 5-325 mg per tablet Take 1 tablet by mouth twice daily. - ibuprofen (MOTRIN) 800 mg tablet Take 800 mg by mouth every 6 hours as needed. - cholecalciferol, vitamin D3, 1,250 mcg (50,000 unit) tab Take one tablet once a week for 12 weeks - melatonin 10 mg cap Take 10 mg by mouth once daily. - Coenzyme Q10 (CO Q-10) 200 mg cap Take 200 mg by mouth once daily. - omega-3 fatty acids (FISH OIL CONCENTRATE) 1,000 mg cap Take 1 g by mouth once daily. - MULTIVITAMIN ORAL Take by mouth once daily. - LACTOBACILLUS ACIDOPHILUS ORAL Take by mouth once daily. I have interviewed and examined the patient. I have reviewed the medical record and/or the pre-anesthesia evaluation, pertinent labs, and test results. This contains updated information obtained within 48 hours of Surgery/Procedure. SIGNATURE: Tiburcio Eisenberg MD PATIENT NAME: Jessica Dillard DATE: March 29, 2021 TIME: 9:34 AM CSN: [id number] [facility] BRIEF OP NOTon 03-29-2021 BRIEF OP NOT HNO ID: [id number] Author: Pb Upton MD Service: General Surgery Author Type: Resident Type: Brief Op Note Filed: 03/29/2021 12:27 PM Note Text: BRIEF OPERATIVE NOTE [facility] LOG ID: [id number] SURGERY/PROCEDURE DATE: 03/29/2021 INCISION/PROCEDURE START TIME: 10:33 AM INCISION CLOSE/PROCEDURE END TIME: 11:30 AM SURGEON(S) AND BUSINESS AREA DIRECTOR(S): Surgeon(s) and Role: * Paul Nj MD - Primary * Pb Upton MD - Resident - Assisting No Additional Staff PROCEDURES AND ANESTHESIA: Procedure(s) and Anesthesia Type: * LAPAROSCOPIC LONGITUDINAL GASTRECTOMY, GASTRIC RESTRICTIVE PROCEDURE - General Revision: No If CPT is a Band, Brand: N/A Modifiers: - Alex-en-Y: N/A - Sleeve Gastrectomy: N/A - Gastric Banding: N/A TAP Block Performed: Yes EGD: 1. LA grade esophagitis: Grade None 2. Oliva?s esophagus: No 3. Hill classification of Hiatus: Grade 1 4. Current use of Proton Pump Inhibitor: No 5. Current use of Histamine divya: No DIAGNOSIS CODE(S): Pre-Op Diagnosis Codes: * Morbidly obese (HCC) [E66.01] Post-Op Diagnosis Codes: * Same as preoperative diagnosis SURGICAL APPROACH: Laparoscopic DVT PREVENTION: Intermittent venous compression device and Anticoagulation INTAKE/OUTPUT: DRAINS: No WOUND CLASSIFICATION: Clean Contaminated FINDINGS - LEAK TEST: Negative SPECIMENS: sleeve gastrectomy INTRA-OPERATIVE ADVERSE EVENTS: NONE SIGNATURE: Pb Upton MD PATIENT NAME: Jessica Dillard DATE: March 29, 2021 TIME: 12:26 PM PAGER/CONTACT #: [facility] NURSING PROGon 03-29-2021 NURSING PROG HNO ID: [id number] Author: Deena Atkinson RN Service: ? Author Type: Registered Nurse Type: Nursing Progress Note Filed: 03/29/2021 8:57 AM Note Text: PATIENT EDUCATION TOPIC: PROCEDURE / SURGERY: Pre-op Teaching: Logistics Protocols PATIENT NAME: Jessica Dillard PATIENT LOCATION: [facility] OR POOL/[facility] OR POOL READINESS TO LEARN COGNITIVE ABILITY: Alert and oriented MOTIVATION TO LEARN: Eager FAMILY SUPPORT: None - Unavailable/disinterested INSTRUCTION PROVIDED TO: Patient PATIENT LEARNS BEST BY: Individual Instruction FACTORS AFFECTING LEARNING: None PHYSICAL LIMITATIONS AFFECTING LEARNING: None LEARNING RESPONSE DIAGNOSIS: ADULT: Well Adult PATIENT/FAMILY RESPONSE: Verbalizes understanding of: PRE-OPERATIVE INSTRUCTIONS-Correct action to take to follow pre-operative instructions METHOD OF INSTRUCTION: Individual instruction FOLLOW-UP PLAN: Complete - No need for follow-up INSTRUCTIONAL AIDS USED: NA SUPPLEMENTAL MATERIAL PROVIDED TO PATIENT: None REFERRAL (RECOMMENDATION): None Electronically Signed By: Deena Atkinson [facility] SURGICAL PATHOLOGYon 021 SURGICAL PATHOLOGY Specimen originated from [facility] Specimen #: [id number] Submitting Physician: PAUL NJ MD FINAL DIAGNOSIS Portion of stomach, excision - Segment of gastric body/fundus with no diagnostic abnormality. JEL/kll 04/02/2021 Mal Riggs M.D. (Electronic Signature) SPECIMEN SUBMITTED A: SLEEVE GASTRECTOMY CLINICAL DATA MORBIDLY OBESE; MINIMALLY INVASIVE SLEEVE GASTRECTOMY, EGD GROSS DESCRIPTION A. Received in formalin designated sleeve gastrectomy is a portion of stomach which measures 25 cm in length and up to 10.4 cm in circumference. The mucosal surface is kruse-pink with normal rugal folds. No polyps or ulcerations are grossly appreciated. Sectioning does not reveal any masses or nodules. The serosal surface is kruse-pink and smooth. Needle Loom Tender sections are submitted in four cassettes. / 03/29/2021 Gross examination performed at [facility], [address] [address] Date of Report: 04/02/2021 Date of Procedure: 03/29/2021 Date of Receipt: 03/29/2021 Submitted by: PAUL NJ MD Location: [facility] Diagnostic interpretation performed at [facility], [address] [place] [address]. CLIA Number: [id number] Normal [facility] THERAPY NTon 03-29-2021 THERAPY NT HNO ID: [id number] Author: Tete Knapp RRT Service: Respiratory Therapy Author Type: Respiratory Therapist Type: Therapy (PT/OT/Speech/Resp) Filed: 03/29/2021 4:24 PM Note Text: Patient does not wear CPAP at home. No unit in the room. Tete Knapp, ZOILA Normal [facility] Self Check COVIDon SARS-CoV-2 (COVID-19) RNA HELLEN+probe Ql (Unsp spec) UPPER RESPIRATORY TRACT SWAB Normal [facility] Comment on above: Performed By: #### H CCOVD ####[facility], [place] [phone] SARS-CoV-2 (COVID-19) RNA HELLEN+probe Ql (Unsp spec) Negative for COVID19 (SARS CoV2) by RT-PCR or equivalent method. Normal Negative for COVID19 (SARS CoV2) by RT-PCR or equivalent method. [facility] Comment on above: Result Comment: This test was developed and its performance characteristics determined by [facility] [place]. This test has been authorized by FDA under an Emergency Use Authorization (EUA). This test has been validated in accordance with the FDA's Guidance Document Policy for Diagnostics Testing in Laboratories Certified to Perform High Complexity Testing under CLIA prior to Emergency use Authorization for Coronavirus Disease 2019 during the Public Health Emergency issued on June 11, 2019. Test performed by [facility], [facility] [place], [address], [place] [address]. Performed By: #### H CCOVD ####[place] [address] [place], [place] [phone] CBC and Differentialon 03-22 Abs Baso 0.03 k/uL Normal <0.11 [facility] Abs Yates 0.65 k/uL Normal <0.87 [facility] Abs Neut 7.80 k/uL High 1.45-7.50 [facility] Absolute nRBC <0.01 Normal <0.01 [facility] Basophils/100 WBC (Bld) 0.3 % Normal [facility] DTYPE Auto Diff Normal [facility] Eosinophils (Bld) [#/Vol] 0.09 10*3/uL Normal <0.46 [facility] Eosinophils/100 WBC (Bld) 0.9 % Normal [facility] Erythrocyte distribution width (RBC) [Ratio] 12.9 % Normal 11.5-15.0 [facility] Hematocrit (Bld) [Volume fraction] 41.9 % Normal 36.0-46.0 [facility] Hemoglobin (Bld) [Mass/Vol] 13.6 g/dL Normal 11.5-15.5 [facility] Lymphocytes (Bld) [#/Vol] 1.67 10*3/uL Normal 1.00-4.00 [facility] Lymphocytes/100 WBC (Bld) 16.3 % Normal [facility] MCH 27.6 pG Normal 26.0-34.0 [facility] MCHC (RBC) [Mass/Vol] 32.5 g/dL Normal 30.5-36.0 [facility] MCV (RBC) [Entitic vol] 85.0 fL Normal 80.0-100.0 [facility] Monocytes/100 WBC (Bld) 6.3 % Normal [facility] Neutrophils/100 WBC (Bld) 76.2 % Normal [facility] NRBCs 0.0 /100 WBC Normal 0 [facility] Platelet mean volume (Bld) [Entitic vol] 9.6 fL Normal 9.0-12.7 [facility] Platelets (Bld) [#/Vol] 271 10*3/uL Normal 150-400 [facility] RBC (Bld) [#/Vol] 4.93 10*6/uL Normal 3.90-5.20 [facility] WBC (Bld) [#/Vol] 10.24 10*3/uL Normal 3.70-11.00 [facility] CNOVon 03-22-2021 CNOV Office Visit (BMIREJ ) JESSICA DILLARD ([id number]) 1965 F Date Time Provider Department 03/22/21 10:00 AM PAUL NJ BMIGLORY During your visit today, we recorded the following information about you: Pulse Blood pressure Weight Height 91/minute 121/64 119.7 kg 1.6 m Paul Nj MD 03/22/2021 10:19 AM Signed SURGERY PREOPERATIVE VISIT NOTE Name: Jessica Dillard Medical Record: [id number] Encounter No.: [id number] Jessica Dillard is a 55 year old female seen in surgery clinic today for their final preoperative assessment. INTERVAL NOTE: Here to discuss regarding sleeve gastrectomy Had an uncomplicated recovery after adrenalectomy US - negative cholelithiasis EGD - Negative esophagitis Current PPI: Protonix 40mg daily. No symptoms of GERD. Understands additional risk of GERD after SG Abdominal surgery hx: 12/27/2020 s/p lap right adrenalectomy PLANNED PROCEDURE: Sleeve gastrectomy PAST MEDICAL HISTORY: PAST MEDICAL HISTORY Diagnosis Date - Adrenal mass (HCC) 12/12/2020 - Elevated glucose 12/12/2020 - GERD (gastroesophageal reflux disease) 12/12/2020 PAST SURGICAL HISTORY: PAST SURGICAL HISTORY Procedure Laterality Date - PAST SURGICAL HISTORY OF left LASHAY - PAST SURGICAL HISTORY OF Left breast duct infection surgery x 2 - PAST SURGICAL HISTORY OF right knee arthroscopy SOCIAL HISTORY: Social History Tobacco Use - Smoking status: Former Smoker Packs/day: 1.00 Years: 40.00 Pack years: 40.00 Types: Cigarettes Quit date: 2019 Years since quittin.9 - Smokeless tobacco: Never Used Substance Use Topics - Alcohol use: Not on file Comment: 2-3 per month - Drug use: Not Currently ALLERGIES: ALLERGIES Allergen Reactions - Ciprofloxacin Unknown MEDICATIONS: Prior to Admission Medications: cholecalciferol, vitamin D3, 1,250 mcg (50,000 unit) tab Take one tablet once a week for [address] (PROTONIX) 40 mg tablet Take 1 tablet by mouth once daily. acetaminophen (TYLENOL) 325 mg tablet Take 2 tablets by mouth every 4 hours as needed for pain. oxyCODONE IR (ROXICODONE) 5 mg immediate release tablet Take 1 tablet by mouth every 6 hours as needed. VITAMIN B COMPLEX ORAL Take by mouth once daily. melatonin 10 mg cap Take 10 mg by mouth once daily. Coenzyme Q10 (CO Q-10) 200 mg cap Take 200 mg by mouth once daily. magnesium oxide (MAG-OX) 400 mg (241.3 mg magnesium) tablet Take 400 mg by mouth once daily. omega-3 fatty acids (FISH OIL CONCENTRATE) 1,000 mg cap Take 1 g by mouth once daily. MULTIVITAMIN ORAL Take by mouth once daily. calcium carbonate-vitamin D3 (OYSTER SHELL CALCIUM-VIT D3) 500 mg(1,250mg) -200 unit pwpk Take 200 mg by mouth twice daily. LACTOBACILLUS ACIDOPHILUS ORAL Take by mouth once daily. HYDROcodone-acetaminophen (NORCO) 5-325 mg per tablet Take 1 tablet by mouth twice daily. ibuprofen (MOTRIN) 800 mg tablet Take 800 mg by mouth every 6 hours as needed. No current facility-administered medications for this visit. VISIT NOTE This patient was seen in clinic today to obtain informed consent, to discuss the details of their upcoming operation including the appropriate expectations for perioperative and postoperative care. In addition, preoperative and postoperative relevant prescriptions were provided and explained during this clinic visit. Based on co morbidities, age and gender, DVT risk is 0.2%. ERAS protocol discussed . Narcotics sparing postop recovery discussed . The consent discussion included the risks, benefits and anticipated outcomes of the procedure, the risks and benefits of the alternatives to the procedure, and the roles and tasks of the personnel to be involved. Patient is scheduled for MIS possible open sleeve gastrectomy, possible repair of hiatal hernia, possible liver biopsy, and intraoperative EGD. I have discussed the risks of surgery including infection, bleeding including injury to the spleen, the mesenteric blood vessels, conversion in the open, postoperative leak requiring stenting, reoperation, resection or repair, stricture requiring dilation or revision, marginal ulcer requiring treatment including reoperation, and incisional hernias. I have also discussed the incidence of reflux problems after sleeve, the possibility of requiring medications for reflux as well or in the worst case scenario requiring surgery for reflux. I have also discussed regarding unsatisfactory weight loss as well as group home weight regain. I have also discussed medical complications including urinary tract infections, myocardial infarction, DVT, PE, prolonged ICU stay, and possible postoperative mechanical ventilation and the risk of mortality. I have reviewed with this patient needed nutritional changes, post-operative recovery, and the potential for excess skin following surgery and subsequent weight loss. Risk (more content not included)... Normal [facility] Comp Metabolic Panelon 03-22 Albumin [Mass/Vol] 4.4 g/dL Normal 3.9-4.9 [facility] ALP [Catalytic activity/Vol] 94 U/L Normal 34-123 [facility] ALT [Catalytic activity/Vol] 24 U/L Normal 7-38 [facility] Anion gap [Moles/Vol] 15 mmol/L Normal 9-18 [facility] AST [Catalytic activity/Vol] 22 U/L Normal 13-35 [facility] Bilirubin [Mass/Vol] 0.2 mg/dL Normal 0.2-1.3 [facility] Calcium [Mass/Vol] 9.9 mg/dL Normal 8.5-10.2 [facility] Chloride [Moles/Vol] 102 mmol/L Normal 97-105 [facility] CO2 [Moles/Vol] 21 mmol/L Low 22-30 [facility] Creatinine [Mass/Vol] 0.57 mg/dL Low 0.58-0.96 [facility] eGFR- Amer. >60 Normal [facility] eGFR-All Other Races >60 Normal [facility] Comment on above: Result Comment: eGFR (Estimated GFR) Units of measure: mL/min/1.73 meters squared eGFR is derived from the reexpressed MDRD Study equation using the following parameters: serum creatinine, age, gender and race. The creatinine assay has been calibrated to be traceable to IDMS. An eGFR <60 mL/min/1.73m2 for >3 months is consistent with chronic kidney disease. Refer to KDOQI guidelines for clinical interpretation. In patients with unstable renal function, e.g. those with acute kidney injury, the eGFR may not accurately reflect actual GFR. Note: On 06/08/2021, the eGFR calculation will be updated to the NKF-ASN Task Force recommended 2021 CKD-EPI creatinine equation which does not include a race variable. For more information or to access a 2020 CKD-EPI calculator, visit the National Kidney Foundation website at kidney.org/professionals/kdoqi/gfr_calculator. Glucose [Mass/Vol] 106 mg/dL High 74-99 [facility] Comment on above: Result Comment: The [employer] (ADA) provides guidance for cutoff values for fasting glucose and random glucose. The ADA defines fasting as no caloric intake for at least 8 hours. Fasting plasma glucose results between 100 to 125 mg/dL indicate increased risk for diabetes (prediabetes). Fasting plasma glucose results greater than or equal to 126 mg/dL meet the criteria for diagnosis of diabetes. In the absence of unequivocal hyperglycemia, results should be confirmed by repeat testing. In a patient with classic symptoms of hyperglycemia or hyperglycemic crisis, random plasma glucose results greater than or equal to 200 mg/dL meet the criteria for diagnosis of diabetes. Reference: Standards of Medical Care in Diabetes 2016, [employer]. Diabetes Care. 2016.39(Suppl 1). Potassium [Moles/Vol] 4.8 mmol/L Normal 3.7-5.1 [facility] Protein [Mass/Vol] 7.3 g/dL Normal 6.3-8.0 [facility] Sodium [Moles/Vol] 138 mmol/L Normal 136-144 [facility] Urea nitrogen [Mass/Vol] 25 mg/dL High 7-21 [facility] HISTORY PHYSICALon HISTORY PHYSICAL HNO ID: [id number] Author: Deanna Bourne PA-C Service: ? Author Type: Physician Department [employer] Type: HANDP Filed: 03/26/2021 8:17 AM Note Text: HISTORY AND PHYSICAL EXAMINATION SERVICE DATE: 03/22/2021 SERVICE TIME: 9:29 AM PRIMARY CARE PHYSICIAN: Yaneth An MD REASON FOR VISIT: Jessica Dillard is a 55 year old female who is scheduled for XI ROBOTIC LONGITUDINAL GASTRECTOMY,GASTRIC RESTRICTIVE PROCEDURE at the request of Dr. Jesus Ramirez for consultation. My final recommendation will be communicated back to the requesting physician by way of shared medical record or letter. The patient has the following: ACTIVE PROBLEM LIST Elevated Glucose Gerd (Gastroesophageal Reflux Disease) Adrenal Mass (Hcc) Bmi 45.0-49.9, Adult (Hcc) Hx of Partial Adrenalectomy (Hcc) Subjective CHIEF COMPLAINT: Morbid obesity HPI: pt is a 55 year old female with request for gastric bypass PAST MEDICAL HISTORY Diagnosis Date - Adrenal mass (HCC) 12/12/2020 - Elevated glucose 12/12/2020 - GERD (gastroesophageal reflux disease) 12/12/2020 PAST SURGICAL HISTORY Procedure Laterality Date - PAST SURGICAL HISTORY OF left LASHAY - PAST SURGICAL HISTORY OF Left breast duct infection surgery x 2 - PAST SURGICAL HISTORY OF right knee arthroscopy FAMILY HISTORY Problem Relation Age of Onset - Cancer Mother - Cancer Father SOCIAL HISTORY: Social History Tobacco Use - Smoking status: Former Smoker Packs/day: 1.00 Years: 40.00 Pack years: 40.00 Types: Cigarettes Quit date: 2018 Years since quittin.9 - Smokeless tobacco: Never Used Substance Use Topics - Alcohol use: Not on file Comment: 2-3 per month - Drug use: Not Currently Prior to Admission medications as of 03/22/21 1000 Medication Sig Last Dose Taking cholecalciferol, vitamin D3, 1,250 mcg (50,000 unit) tab Take one tablet once a week for 12 weeks Taking Yes pantoprazole DR (PROTONIX) 40 mg tablet Take 1 tablet by mouth once daily. Taking Yes VITAMIN B COMPLEX ORAL Take by mouth once daily. Taking Yes melatonin 10 mg cap Take 10 mg by mouth once daily. Taking Yes Coenzyme Q10 (CO Q-10) 200 mg cap Take 200 mg by mouth once daily. Taking Yes magnesium oxide (MAG-OX) 400 mg (241.3 mg magnesium) tablet Take 400 mg by mouth once daily. Taking Yes omega-3 fatty acids (FISH OIL CONCENTRATE) 1,000 mg cap Take 1 g by mouth once daily. Taking Yes MULTIVITAMIN ORAL Take by mouth once daily. Taking Yes calcium carbonate-vitamin D3 (OYSTER SHELL CALCIUM-VIT D3) 500 mg(1,250mg) -200 unit pwpk Take 200 mg by mouth twice daily. Taking Yes LACTOBACILLUS ACIDOPHILUS ORAL Take by mouth once daily. Taking Yes HYDROcodone-acetaminophen (NORCO) 5-325 mg per tablet Take 1 tablet by mouth twice daily. Taking Yes ibuprofen (MOTRIN) 800 mg tablet Take 800 mg by mouth every 6 hours as needed. Taking Yes gabapentin (NEURONTIN) 100 mg capsule Take 1 capsule by mouth three times daily for 14 days. scopolamine (TRANSDERM-SCOP) patch 1.5 mg/72 hr (1 mg over 3 days) Apply 1 Patch as directed every 72 hours. Apply one patch behind the ear every 3 days ursodiol (ACTIGALL) 300 mg capsule Take 1 capsule by mouth twice daily. ondansetron orally disintegrating (ZOFRAN ODT) 4 mg disintegrating tablet Take 1 tablet by mouth every 8 hours as needed for nausea/vomiting. baclofen (LIORESAL) 10 mg tablet No medication comments found. ALLERGIES Allergen Reactions - Ciprofloxacin Unknown COVID VACCINATION STATUS: Fully vaccinated previous infection, mild symptoms fully resolved REVIEW OF SYSTEMS: PAIN ASSESSMENT: General: No weight loss, malaise or fevers. Neuro: No history of TIA's, stroke, CHORUS DANCER tumor, impaired sensorium, hemiplegia, paraplegia or quadraplegia. No neurological symptoms or problems. Respiratory: No history of current cough or dyspnea, or pneumonia in the past 6 weeks. No history of respiratory/pulmonary symptoms or problems. Cardiovascular: No history of HTN requiring medication, no history of angina, CHF, CT, cardiac surgery or stents. Denies rest pain, gangrene or revascularization/amputation for PVD. No history of cardiovascular symptoms or problems. 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 : Denies, No LMP recorded. Patient is postmenopausal. Endocrine: Diabetes Mellitus with diet control Hematology: No history of bleeding or clotting disorder. Pt is not taking anti-coagulation or platelet medications. No history of hematological symptoms or problems. Oncology: No history of CA metastasis, chemo within 30 days, or radiotherapy within 90 days. Has not lost 10% of body wt in 6 months. No history of oncological symptoms or problems. Psych: No history of (more content not included)... Normal [facility] Type and SCR (30D)on 021 ABO/RH(D) Positive Normal [facility] Comment on above: Performed By: #### T [id number] ####[facility] [place], [place] [phone] Chadd 02-22-2021 CNPN Telephone (DTBAMN) JESSICA DILLARD ([id number]) 1965 F Date Time Provider Department 02/22/21 BEBA AVILA DTBAMN During your visit today, we recorded the following information about you: Beba Avila RD 02/22/2021 3:57 PM Signed Spoke with patient regarding pre op diet. Patient reports she bought two cases of [employer] Protein shake and wants to use that prior to her surgery. She reports she did this prior to another surgery she had, and Dr. Ramirez said it was a good choice. I let her know she has to use the protein shakes listed in the Your Guide to Surgery booklet, and that she can not use other options. Patient verbalized understanding. I let her know she can use those shakes after surgery, so she can save them for that time. Beba Avila RD Allergies As of Date: 02/22/2021 Noted Allergy Reaction CIPROFLOXACIN 10/19/2020 16 - Unknown Date Reviewed: 01/07/2021 Reviewed by: Valencia Arevalo Ma - Fully Assessed Reason for Visit: Returning Patient's Call [[id number]] Prescriptions as of 02/22/2021 - cholecalciferol, vitamin D3, 1,250 mcg (50,000 unit) tab Take one tablet once a week for 12 weeks - pantoprazole DR (PROTONIX) 40 mg tablet Take 1 tablet by mouth once daily. - acetaminophen (TYLENOL) 325 mg tablet Take 2 tablets by mouth every 4 hours as needed for pain. - oxyCODONE IR (ROXICODONE) 5 mg immediate release tablet Take 1 tablet by mouth every 6 hours as needed. - VITAMIN B COMPLEX ORAL Take by mouth once daily. - melatonin 10 mg cap Take 10 mg by mouth once daily. - Coenzyme Q10 (CO Q-10) 200 mg cap Take 200 mg by mouth once daily. - magnesium oxide (MAG-OX) 400 mg (241.3 mg magnesium) tablet Take 400 mg by mouth once daily. - omega-3 fatty acids (FISH OIL CONCENTRATE) 1,000 mg cap Take 1 g by mouth once daily. - MULTIVITAMIN ORAL Take by mouth once daily. - calcium carbonate-vitamin D3 (OYSTER SHELL CALCIUM-VIT D3) 500 mg(1,250mg) -200 unit pwpk Take 200 mg by mouth twice daily. - LACTOBACILLUS ACIDOPHILUS ORAL Take by mouth once daily. - HYDROcodone-acetaminophen (NORCO) 5-325 mg per tablet Take 1 tablet by mouth twice daily. - ibuprofen (MOTRIN) 800 mg tablet Take 800 mg by mouth every 6 hours as needed. Problem List As Of Date 02/22/2021 Noted Resolved Elevated glucose [R73.09] 12/12/2020 GERD (gastroesophageal reflux disease) [K21.9] 12/12/2020 Adrenal mass (HCC) [E27.8] 12/12/2020 BMI 45.0-49.9, adult (HCC) [Z68.42] 12/12/2020 Hx of partial adrenalectomy (HCC) [E89.6] 01/07/2021 Encounter Status:Closed by BEBA AVILA on 02/22/21 [facility] JESSICA DILLARD ([id number]) 1965 F Date Time Provider Department 02/20/21 PAUL [place] [facility] During your visit today, we recorded the following information about you: Wendie Jean 02/20/2021 1:45 PM Signed Patient called and left message regarding having pre-operative questions return call to [phone] Wen Bill RN 02/21/2021 11:42 AM Signed Return call to patient. Pending LSG on 03/29/2021 Patient is scheduled on 03/05/2021 at OSH for procedure to treat back pain due to arthritis. Plan for ablation of nerves, steroid injection, and testosterone injection. Her MD is okay to forego steroid injection at this time due to upcoming LSG if okay to still proceed with ablation and testosterone injection. Will update Dr. Nj and follow up with patient with recommendations. Wen Bill RN 02/22/2021 2:31 PM Signed Paul Nj MD You 8 minutes ago (2:18 PM) As long as it is a back injection and not systemic, anything is ok Follow up call to patient. Explained that local injections are okay. Patient will update her back surgeon that okay to proceed if steroid injection is not systemic. Allergies As of Date: 02/20/2021 Noted Allergy Reaction CIPROFLOXACIN 10/19/2020 16 - Unknown Date Reviewed: 01/07/2021 Reviewed by: Valencia Arevalo Ma - Fully Assessed Reason for Visit: PreOp Call [[id number]] Prescriptions as of 02/22/2021 - cholecalciferol, vitamin D3, 1,250 mcg (50,000 unit) tab Take one tablet once a week for 12 weeks - pantoprazole DR (PROTONIX) 40 mg tablet Take 1 tablet by mouth once daily. - acetaminophen (TYLENOL) 325 mg tablet Take 2 tablets by mouth every 4 hours as needed for pain. - oxyCODONE IR (ROXICODONE) 5 mg immediate release tablet Take 1 tablet by mouth every 6 hours as needed. - VITAMIN B COMPLEX ORAL Take by mouth once daily. - melatonin 10 mg cap Take 10 mg by mouth once daily. - Coenzyme Q10 (CO Q-10) 200 mg cap Take 200 mg by mouth once daily. - magnesium oxide (MAG-OX) 400 mg (241.3 mg magnesium) tablet Take 400 mg by mouth once daily. - omega-3 fatty acids (FISH OIL CONCENTRATE) 1,000 mg cap Take 1 g by mouth once daily. - MULTIVITAMIN ORAL Take by mouth once daily. - calcium carbonate-vitamin D3 (OYSTER SHELL CALCIUM-VIT D3) 500 mg(1,250mg) -200 unit pwpk Take 200 mg by mouth twice daily. - LACTOBACILLUS ACIDOPHILUS ORAL Take by mouth once daily. - HYDROcodone-acetaminophen (NORCO) 5-325 mg per tablet Take 1 tablet by mouth twice daily. - ibuprofen (MOTRIN) 800 mg tablet Take 800 mg by mouth every 6 hours as needed. Problem List As Of Date 02/20/2021 Noted Resolved Elevated glucose [R73.09] 12/12/2020 GERD (gastroesophageal reflux disease) [K21.9] 12/12/2020 Adrenal mass (HCC) [E27.8] 12/12/2020 BMI 45.0-49.9, adult (HCC) [Z68.42] 12/12/2020 Hx of partial adrenalectomy (HCC) [E89.6] 01/07/2021 Encounter Status:Closed by WEN BILL RN on 02/22/21 Normal [facility] CNCOon 02-01-2021 CNCO Letter Text Normal [facility] CNCOon 01-15-2021 CNCO Letter Text Normal [facility] CNOVon 01-07-2021 CNOV Office Visit (BMIREJ ) JESSICA DILLARD ([id number]) 1965 F Date Time Provider Department 01/07/21 10:50 AM JESUS RAMIREZ During your visit today, we recorded the following information about you: Pulse Blood pressure Weight 107/minute 142/77 126.1 kg Jesus Ramirez MD 01/07/2021 2:18 PM Signed January 07, 2021 I am pleased to report that Jessica Dillard is recovering well from her recent laparoscopic adrenalectomy. Fortunately, the mass was benign. Incisions healing very well. She does not require any specific follow up from me for this issue, but I have encouraged her to contact me at any time. She is cleared from my perspective for bariatric surgery. 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 - acetaminophen (TYLENOL) 325 mg tablet Take 2 tablets by mouth every 4 hours as needed for pain. - oxyCODONE IR (ROXICODONE) 5 mg immediate release tablet Take 1 tablet by mouth every 6 hours as needed. - VITAMIN B COMPLEX ORAL Take by mouth once daily. - melatonin 10 mg cap Take 10 mg by mouth once daily. - Coenzyme Q10 (CO Q-10) 200 mg cap Take 200 mg by mouth once daily. - magnesium oxide (MAG-OX) 400 mg (241.3 mg magnesium) tablet Take 400 mg by mouth once daily. - omega-3 fatty acids (FISH OIL CONCENTRATE) 1,000 mg cap Take 1 g by mouth once daily. - MULTIVITAMIN ORAL Take by mouth once daily. - calcium carbonate-vitamin D3 (OYSTER SHELL CALCIUM-VIT D3) 500 mg(1,250mg) -200 unit pwpk Take 200 mg by mouth twice daily. - LACTOBACILLUS ACIDOPHILUS ORAL Take by mouth once daily. - HYDROcodone-acetaminophen (NORCO) 5-325 mg per tablet Take 1 tablet by mouth twice daily. - ibuprofen (MOTRIN) 800 mg tablet Take 800 mg by mouth every 6 hours as needed. 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 Medications Discontinued During This Encounter Prescriptions - pantoprazole DR (PROTONIX) 40 mg tablet (Discontinued) Take 1 tablet by mouth once daily. Letter Text Encounter Status:Closed by JESUS RAMIREZ on 01/07/21 Normal [facility] Basic Metabolic Panlon 12-28 Anion gap [Moles/Vol] 11 mmol/L Normal 9-18 [facility] Comment on above: Performed By: #### Akua CAMPBELL, BMP #### [place] [phone] Calcium [Mass/Vol] 8.7 mg/dL Normal 8.5-10.5 [facility] Comment on above: Performed By: #### Akua CAMPBELL, BMP #### [place] [phone] Chloride [Moles/Vol] 107 mmol/L Normal 98-110 [facility] Comment on above: Performed By: #### Akua CAMPBELL, BMP #### [place] [phone] CO2 [Moles/Vol] 23 mmol/L Normal 23-32 [facility] Comment on above: Performed By: #### Akua CAMPBELL, BMP #### [place] [phone] Creatinine [Mass/Vol] 0.52 mg/dL Low 0.70-1.40 [facility] Comment on above: Performed By: #### Akua CAMPBELL, BMP #### [place] [phone] eGFR- Amer. >60 Normal >60 [facility] Comment on above: Performed By: #### Akua CAMPBELL, BMP #### [place] [phone] eGFR-All Other Races >60 Normal >60 [facility] Comment on above: Result Comment: eGFR (Estimated GFR) Units of measure: mL/min/1.73 meters squared eGFR is derived from the reexpressed MDRD Study equation using the following parameters: serum creatinine, age, gender and race. The creatinine assay has been calibrated to be traceable to IDMS. An eGFR <60 mL/min/1.73m2 for >3 months is consistent with chronic kidney disease. Refer to KDOQI guidelines for clinical interpretation. In patients with unstable renal function, e.g. those with acute kidney injury, the eGFR may not accurately reflect actual GFR. Performed By: #### C BC, BMP #### [place] [phone] Glucose [Mass/Vol] 106 mg/dL High 65-100 [facility] Comment on above: Performed By: #### C BC, BMP #### [place] [phone] Potassium [Moles/Vol] 4.0 mmol/L Normal 3.5-5.0 [facility] Comment on above: Performed By: #### C BC, BMP #### [place] [phone] Sodium [Moles/Vol] 141 mmol/L Normal 132-148 [facility] Comment on above: Performed By: #### C BC, BMP #### [place] [phone] Urea nitrogen [Mass/Vol] 11 mg/dL Normal 8-25 [facility] Comment on above: Performed By: #### C ADRIAN, BMP #### [place] [phone] CBCon 12-28-2020 Absolute nRBC <0.01 Normal <0.01 [facility] Comment on above: Performed By: #### C BC, BMP #### [place] [phone] Erythrocyte distribution width (RBC) [Ratio] 12.5 % Normal 11.5-15.0 [facility] Comment on above: Performed By: #### C BC, BMP #### [place] [phone] Hematocrit (Bld) [Volume fraction] 37.7 % Normal 36.0-46.0 [facility] Comment on above: Performed By: #### C ADRIAN, BMP #### [place] [address] Hemoglobin (Bld) [Mass/Vol] 12.1 g/dL Normal 11.5-15.5 [facility] Comment on above: Performed By: #### C BC, BMP #### [place] [address] MCH 28.1 pG Normal 26.0-34.0 [facility] Comment on above: Performed By: #### C BC, BMP #### [place] [phone] MCHC (RBC) [Mass/Vol] 32.1 g/dL Normal 30.5-36.0 [facility] Comment on above: Performed By: #### C BC, BMP #### [place] [phone] MCV (RBC) [Entitic vol] 87.7 fL Normal 80.0-100.0 [facility] Comment on above: Performed By: #### C BC, BMP #### [place] [phone] Platelet mean volume (Bld) [Entitic vol] 9.6 fL Normal 9.0-12.7 [facility] Comment on above: Performed By: #### C BC, BMP #### [place] [phone] Platelets (Bld) [#/Vol] 226 10*3/uL Normal 150-400 [facility] Comment on above: Performed By: #### C BC, BMP #### [place] [address] RBC (Bld) [#/Vol] 4.30 10*6/uL Normal 3.90-5.20 [facility] Comment on above: Performed By: #### C BC, BMP #### [place] [address] WBC (Bld) [#/Vol] 8.65 10*3/uL Normal 3.70-11.00 [facility] Comment on above: Performed By: #### C , [facility] #### [facility] [address] [place] [address] CNDSon 12-28-2020 [facility] HNO ID: [id number] Author: Loren Boyd MD Service: General Surgery Author Type: Resident Type: Discharge Summary Filed: 12/28/2020 7:54 AM Note Text: Attestation signed by Jesus Ramirez MD at 12/28/2020 10:00 AM Uncomplicated stay for right adrenalectomy Jesus Ramirez MD GENERAL SURGERY DISCHARGE SUMMARY PATIENT NAME: Jessica Dillard ADMISSION DATE: 12/27/2020 DISCHARGE DATE: 12/28/2020 ATTENDING PHYSICIAN: Jesus Ramirez MD Code Status: Not on file Highest Readmission Risk Score: 9 The 30 day readmissions risk score is derived from an internally validated risk model which evaluates patient level characteristics, utilization history, medication orders and lab results up until the day of discharge. Patients with a score of 40 or above are considered highest risk for readmission. Specific patient level drivers will be listed at the bottom of the summary. REASON FOR HOSPITALIZATION: Right adrenal mass OPERATIONS DURING HOSPITALIZATION: Procedure(s) (LRB): LAPAROSCOPIC ADRENALECTOMY (Right) PROCEDURES DURING HOSPITALIZATION: No procedures performed HOSPITAL COURSE: Patient with known right adrenal mass was admitted on 12/27 for a scheduled elective laparoscopic right adrenalectomy. Surgery was uncomplicated. Patient was then returned to [facility] where her post-op recovery was essentially unremarkable. Patient eventually recovered well and was able to tolerate PO diet, urinate and ambulate independently with pain well controlled. On 12/28/2020, patient was diachrged. Active Hospital Problems Diagnosis Date Noted - Adrenal mass (HCC) 12/12/2020 Resolved Hospital Problems No resolved problems to display. Transitions of Care Critical Issues: none LABS AND PROCEDURES PENDING AT DISCHARGE: No pending results. CONSULTING TEAMS DURING HOSPITALIZATION: None Treatment Team: Attending Provider: Jesus Ramirez MD PATIENT CONDITION AT DISCHARGE: Stable DISCHARGE DISPOSITION: Home/Self Care INFORMATION PROVIDED TO PATIENT: as per d/c instructions DIET: Resume pre-hospital diet ACTIVITY: Resume pre-hospital activity WOUND/SURGICAL SITE CARE: None ALLERGIES Allergen Reactions - Ciprofloxacin Unknown DISCHARGE MEDICATION: Current Discharge Medication List START taking these medications acetaminophen (TYLENOL) 650 mg Take 650 mg by mouth every 4 hours as needed for pain. Qty: 40 tablet Refills: 0 oxyCODONE IR (ROXICODONE) 5 mg Take 5 mg by mouth every 6 hours as needed. Qty: 5 tablet Refills: 0 Associated Diagnoses:Post-op pain CONTINUE these medications which have NOT CHANGED pantoprazole DR (PROTONIX) 40 mg Take 40 mg by mouth once daily. Qty: 30 tablet Refills: 1 VITAMIN B COMPLEX ORAL Take by mouth once daily. melatonin 10 mg Take 10 mg by mouth once daily. Coenzyme Q10 200 mg Take 200 mg by mouth once daily. magnesium oxide (MAG-OX) 400 mg Take 400 mg by mouth once daily. omega-3 fatty acids 1 g Take 1 g by mouth once daily. MULTIVITAMIN ORAL Take by mouth once daily. OYSTER SHELL CALCIUM-VIT D3 200 mg Take 200 mg by mouth twice daily. LACTOBACILLUS ACIDOPHILUS ORAL Take by mouth once daily. HYDROcodone-acetaminophen (NORCO) 1 tablet Take 1 tablet by mouth twice daily. ibuprofen (MOTRIN) 800 mg Take 800 mg by mouth every 6 hours as needed. Refills: 3 PLAN OF CARE: Plan of care discussed with Provider, RN, Patient FUTURE APPOINTMENTS: Future Appointments Date Time Provider Department Center 01/07/2021 10:50 AM [facility] The patient's risk for 30-day readmission is determined using the following contributing factors: Pt variables contributing to increased readmission risk: 15 Most Recent BUN Result 8 Active Medication Orders 1 Insurance - Medicaid 1 Active Anticoagulant SIGNATURE: Loren Boyd MD DATE: December 28, 2020 TIME: 7:46 AM [facility] NURSING PROGon 12-28-2020 NURSING PROG HNO ID: [id number] Author: Maicol Monae RN Service: ? Author Type: Registered Nurse Type: Nursing Progress Note Filed: 12/28/2020 4:08 AM Note Text: Nursing Progress Note Patient Name: Jessica Dillard Patient Location: / Daily Note: 0200 Patients IV removed for possible infiltration, ice applied and elevated, new IV placed. Paged house to make them aware. This note was completed by: Maicol Monae [facility] NURSING PROG HNO ID: [id number] Author: Maicol Monae RN Service: ? Author Type: Registered Nurse Type: Nursing Progress Note Filed: 12/27/2020 10:25 PM Note Text: Nursing Progress Note Patient Name: Jessica Dillard Patient Location: / Daily Note: 20:20 patients heartrate sustaining in 120's, patient asymptomatic but in pain, gave 5mg of oxycodone and paged surgery. 20:30 Dr. Guzman came to assess patient, changed pain meds and advised to monitor and manage pain. This note was completed by: Maicol Monae [facility] ANES POSTPROC EVALon 021 ANES POSTPROC EVAL HNO ID: [id number] Author: Donnell Chicas MD Service: Anesthesiology Author Type: Anesthesiologist Type: Anesthesia Postprocedure Evaluation Filed: 12/27/2020 5:02 PM Note Text: POST ANESTHESIA EVALUATION NOTE : 1965 Procedure Summary Date: 12/27/20 Room / Location: OR / OR Anesthesia Start: 1222 Anesthesia Stop: 1531 Procedure: LAPAROSCOPIC ADRENALECTOMY (Right Abdomen) Diagnosis: Adrenal mass greater than 4 cm in diameter (HCC) Preoperative examination (Adrenal mass greater than 4 cm in diameter (HCC) [E27.8]) (Preoperative examination [Z01.818]) Surgeons: Jesus Ramirez MD Responsible Provider: Abilio Hansen DO Anesthesia Type: general ASA Status: 3 Anesthesia Type: general Last vitals Vitals Value Taken Time BP 148/108 12/27/20 1630 Temp 36 ?C (96.8 ?F) 12/27/20 1530 Pulse 103 12/27/20 1654 Resp 9 12/27/20 1654 SpO2 97 % 12/27/20 1654 Vitals shown include unvalidated device data. Post Anesthesia Patient Status Patient Evaluation: PACU. PACU/ICU Patient Condition: stable. Neurological Status: aware and responsive. Pulmonary Status: breathing comfortably on room air Airway Control: returned to baseline unsupported. Cardiovascular Status: stable. Pain Management: clinically adequate Postoperative Hydration: acceptable. Intraoperative Events: no significant anesthesia events Post Operative Nausea/Vomiting Status: no significant post operative nausea or vomiting Anesthetic Observations: Recommendation: continue current plan of care. No complications documented. SIGNATURE: Donnell Chicas MD PATIENT NAME: Jessica Dillard DATE: December 27, 2020 TIME: 4:54 PM CSN: [id number] [facility] ANES PRE-OPon 12-27-2020 ANES PRE-OP HNO ID: [id number] Author: Abilio Hansen DO Service: Critical Care Author Type: Anesthesiologist Type: Anesthesia Preprocedure Evaluation Filed: 12/27/2020 9:09 AM Note Text: ANESTHESIOLOGY DAY OF SURGERY NOTE : 1965 Procedure(s) (LRB): LAPAROSCOPIC ADRENALECTOMY (Right) Surgeon(s): Jesus Ramirez MD Estimated body mass index is 47.55 kg/m? as calculated from the following: Height as of 9/1/21: 162.6 cm (5' 4 ). Weight as of 12/12/20: 125.6 kg (277 lb). Most recent hematocrit and potassium results: Hemoglobin (g/dL) Date Value 12/14/2020 14.1 Hematocrit (%) Date Value 12/14/2020 43.9 WBC (k/uL) Date Value 12/14/2020 7.55 Platelet Count (k/uL) Date Value 12/14/2020 254 CMP: Glucose 124 12/14/2020 BUN 15 12/14/2020 Creatinine 0.59 12/14/2020 Sodium 137 12/14/2020 Potassium 4.3 12/14/2020 Chloride 105 12/14/2020 CO2 23 12/14/2020 Protein, Total 7.0 12/14/2020 Albumin 4.4 12/14/2020 Calcium 9.3 12/14/2020 Alkaline Phosphatase 127 12/14/2020 Bilirubin, Total 0.3 12/14/2020 AST 20 12/14/2020 ALT 23 12/14/2020 Component Latest Ref Rng AND Units 12/14/2020 ABO/RH(D) A POSITIVE Antibody Screen NEG Order Type Blood Bank Blood Bank Historical Ab Scr Status NEGATIVE Relevant Problems GI (+) GERD (gastroesophageal reflux disease) Other (+) Adrenal mass (HCC) (+) BMI 45.0-49.9, adult (HCC) I - PHYSICAL EVALUATION AIRWAY Patient intubated: No. Mallampati: II. TM distance: >3 FB. Neck ROM: full ROM without neurological symptoms. Mouth opening: adequate. Short neck: no. Thick neck: yes DENTAL Dental findings: poor dentition and missing tooth/teeth. Dentures, upper: complete. II - ANESTHESIA PLAN ASA Score: 3 Anesthetic Plan: general Airway type: ETT The patient is not a current smoker. NPO Status: adequate Monitoring plan: invasive hemodynamic monitoring and standard ASA. Monitoring method: arterial LinePostoperative analgesic plan: parenteral or oral opioids, multimodal analgesia and per surgical service. Anesthetic Risks, Benefits, Alternatives, Personnel Discussed. Consent obtained from: patient.Patient / Surrogate agrees to blood products: Yes Potential Anesthesia issues that may suggest increased risk of complications or contraindication to planned procedure: potential difficult intubation. Vitals Value Taken Time BP 136/57 12/27/20 0854 Pulse 90 09/16/21 0854 Resp 18 09/16/21 0854 Temp 36 ?C (96.8 ?F) 12/27/20853 SpO2 99 % 12/27/20853 Facility-Administered Medications as of 12/27/2020 Medication Dose Route Frequency - lidocaine 10 mg/mL (1 %) 1-2 mg injection (XYLOCAINE) 0.1-0.2 mL INTRADERMAL PRN - lactated ringers iv infusion 5-30 mL/hr INTRAVENOUS CONTINUOUS - heparin 5,000 Units injection 5,000 Units SUBCUTANEOUS Pre-Op Once - ceFAZolin 3 g in D5W 100 mL (ANCEF) 3 g INTRAVENOUS Pre-Op Once - acetaminophen 1,000 mg tab(s) (TYLENOL) 1,000 mg ORAL Pre-Op Once - promethazine 12.5 mg tab(s) (PHENERGAN) 12.5 mg ORAL Pre-Op Once Outpatient Medications as of 12/27/2020 Medication Sig - pantoprazole DR (PROTONIX) 40 mg tablet Take 1 tablet by mouth once daily. - VITAMIN B COMPLEX ORAL Take by mouth once daily. - melatonin 10 mg cap Take 10 mg by mouth once daily. - Coenzyme Q10 (CO Q-10) 200 mg cap Take 200 mg by mouth once daily. - magnesium oxide (MAG-OX) 400 mg (241.3 mg magnesium) tablet Take 400 mg by mouth once daily. - omega-3 fatty acids (FISH OIL CONCENTRATE) 1,000 mg cap Take 1 g by mouth once daily. - MULTIVITAMIN ORAL Take by mouth once daily. - calcium carbonate-vitamin D3 (OYSTER SHELL CALCIUM-VIT D3) 500 mg(1,250mg) -200 unit pwpk Take 200 mg by mouth twice daily. - LACTOBACILLUS ACIDOPHILUS ORAL Take by mouth once daily. - HYDROcodone-acetaminophen (NORCO) 5-325 mg per tablet Take 1 tablet by mouth twice daily. - ibuprofen (MOTRIN) 800 mg tablet Take 800 mg by mouth every 6 hours as needed. I have interviewed and examined the patient. I have reviewed the medical record and/or the pre-anesthesia evaluation, pertinent labs, and test results. This contains updated information obtained within 48 hours of Surgery/Procedure. SIGNATURE: Abilio Hansen DO PATIENT NAME: Jessica Dillard DATE: December 27, 2020 TIME: 9:06 AM CSN: [id number] [facility] BRIEF OP NOTon 12-27-2020 BRIEF OP NOT HNO ID: [id number] Author: Kadi Flanagan MD Service: General Surgery Author Type: Resident Type: Brief Op Note Filed: 12/27/2020 3:28 PM Note Text: Attestation signed by Jesus Ramirez MD at 12/27/2020 3:37 PM [id number] Jesus Ramirez MD BRIEF OPERATIVE / PROCEDURE NOTE LOG ID: [id number] Surgery/Procedure Date: 12/27/2020 Incision/Procedure Start Time: 1:31 PM Incision Close/Procedure End Time: 3:13 PM Surgeon(s)/Proceduralist(s) and Department [employer]): Surgeon(s) and Role: * Jesus Ramirez MD - Primary * Kadi Flanagan MD - Resident - Assisting No Additional Staff Procedure(s): laparoscopic right adrenalectomy Anesthesia: General Findings: right adrenal mass Estimated Blood Loss: 20 mls Specimens: right adrenal mass Wound Classification: Class 1, operative wound clean, non-traumatic, with no inflammation encountered, no break in technique, biliary, gastrointestinal and genitor-urinary tracts not entered Complications: None PRE-OP/PRE-PROCEDURE DIAGNOSIS: Right adrenal mass POST-OP/POST-PROCEDURE DIAGNOSIS: Same as Preop SIGNATURE: Kadi Flanagan MD PATIENT NAME: Jessica Dillard DATE: December 27, 2020 TIME: 3:27 PM [facility] Confirm Blood Typeon 021 ABO/RH(D) Positive [facility] Comment on above: Performed By: #### C ONABO ####[facility] [place], [place] [phone] HISTORY PHYSICALon HISTORY PHYSICAL HNO ID: [id number] Author: Kadi Flanagan MD Service: General Surgery Author Type: Resident Type: HANDP Filed: 12/27/2020 9:46 AM Note Text: Attestation signed by Jesus Ramirez MD at 12/27/2020 12:23 PM Jesus Ramirez MD UPDATED HISTORY AND PHYSICAL EXAMINATION SERVICE DATE: 12/27/2020 SERVICE TIME: 9:45 AM PHYSICAL EXAM MUST BE COMPLETED ON ADMISSION The History and Physical (completed in the past 30 days) has been reviewed and the patient has been examined. The contents accurately reflect the patient's condition with the following additions or revisions since the HANDP was completed. Examination indicates no changes. This HANDP can be found in the attached. Updated Physical exam: General: no acute distress Lung: Clear to auscultation. Cardiac: RRR Abdomen: soft non tender, non distended. SIGNATURE: Kadi Flanagan MD PATIENT NAME: Jessica Dillard DATE: December 27, 2020 TIME: 9:45 AM Normal [facility] NURSING PROGon 12-27-2020 NURSING PROG HNO ID: [id number] Author: Barbara Calix RN Service: Nursing Author Type: Registered Nurse Type: Nursing Progress Note Filed: 12/27/2020 8:02 PM Note Text: Nursing Progress Note Patient Name: Jessica Dillard Patient Location: / Daily Note: 1745 Received patient from PACU, alert, Abdominal Stab sites intact. Up to bathroom with contact guard, gait steady. This note was completed by: Barbara Calix [facility] NURSING PROG HNO ID: [id number] Author: Valencia Abdul RN Service: Nursing Author Type: Registered Nurse Type: Nursing Progress Note Filed: 12/27/2020 8:44 AM Note Text: PATIENT EDUCATION TOPIC: PROCEDURE / SURGERY: Pre-op Teaching: Logistics PATIENT NAME: Jessica Dillard PATIENT LOCATION: [facility] OR POOL/[facility] OR POOL READINESS TO LEARN COGNITIVE ABILITY: Alert and oriented MOTIVATION TO LEARN: Eager FAMILY SUPPORT: None - Unavailable/disinterested INSTRUCTION PROVIDED TO: Patient PATIENT LEARNS BEST BY: Individual Instruction FACTORS AFFECTING LEARNING: None PHYSICAL LIMITATIONS AFFECTING LEARNING: None LEARNING RESPONSE DIAGNOSIS: ADULT: Well Adult PATIENT/FAMILY RESPONSE: Verbalizes understanding of: PRE-OPERATIVE INSTRUCTIONS-Correct action to take to follow pre-operative instructions METHOD OF INSTRUCTION: Individual instruction FOLLOW-UP PLAN: Complete - No need for follow-up INSTRUCTIONAL AIDS USED: NA SUPPLEMENTAL MATERIAL PROVIDED TO PATIENT: None REFERRAL (RECOMMENDATION): None Electronically Signed By: Valencia Abdul [facility] OPERATIVE NOon 12-27-2020 OPERATIVE NO HNO ID: [id number] Author: Jesus Ramirez MD Service: General Surgery Author Type: Physician Type: Operative Report Filed: 12/28/2020 10:33 AM Note Text: [facility] - Operative Report JESSICA DILLARD : 1965 AGE: 55. SEX: F PATIENT TYPE: I HOSP SVC: GENS LOCATION: [facility] ATTENDING PHYSICIAN: Jesus Ramirez M.D. CSN NUMBER: [id number] DATE OF SURGERY/PROCEDURE: 12/27/2020 INCISION/PROCEDURE START TIME: 1:31 PM INCISION CLOSE/PROCEDURE END TIME: 3:13 PM PREOPERATIVE DIAGNOSIS: Indeterminate right adrenal mass, nonfunctional. POSTOPERATIVE DIAGNOSIS: Indeterminate right adrenal mass, nonfunctional. SURGEON: Jesus Ramirez M.D. BUSINESS AREA DIRECTOR: Adrien Flanagan MD. SURGERY/PROCEDURE: Laparoscopic right adrenalectomy. ANESTHESIA: General OPERATIVE INDICATIONS: This 55-year-old woman with an incidentally identified right adrenal mass that was indeterminate on imaging. It was not hormonally active. The operative plan was for a laparoscopic right adrenalectomy. DESCRIPTION OF PROCEDURE: The patient was positioned in the right lateral decubitus with all pressure points padded. An axillary roll placed and the bed flexed. The right abdomen and flanks were prepped and draped. The abdomen was insufflated with a Veress needle in the left subcostal space. The abdomen was entered with a 5 mm 0- degree laparoscope and a 5 mm optical trocar in the right subcostal space. There was no trauma from the Veress needle when it was removed. After pre-injection local anesthesia, a 12 mm port was placed lateral to the site. The initial entry site was upsized to a 12 mm port. A 5 mm port was placed in the right epigastrium and a 12 mm port was placed in the right flank, all under laparoscopic vision. The adhesions between the right lobe of the liver and the diaphragm were taken down with the LigaSure device. Then, the right lobe of the liver was elevated and the peritoneum on the posterior aspect of the inferior aspect of the liver was incised beginning at the duodenum and heading out laterally up to the right triangular ligament and the anterior aspect of the right triangular ligament was incised. The liver was gradually retracted medially and superiorly, taking down the filmy retroperitoneal attachments to the liver and the retroperitoneum exposing the adrenal gland. This was continued up until the right lobe of the liver was totally mobilized and the lateral aspect of the vena cava was totally exposed. Then, a dissection was performed on the lateral aspect of the vena cava, removing all of the retroperitoneal tissue including the adrenal glands laterally. This was continued upward to the right phrenic vessels and inferior to the right renal vein. During this, the right adrenal vein was identified, doubly clipped, ligated, and divided. Then, the inferior aspect was dissected away from the adrenal vessels and the superior pole of the kidney. Then, the entire complex was elevated and the retroperitoneal fat was dissected off the psoas muscle and the abdominal wall musculature. Then, the lateral attachments were divided and the superior attachments were divided. This completely removed the adrenal gland along with its associated retroperitoneal fat en bloc. The specimen was placed in an EndoCatch bag. Then, the area of dissection was meticulously inspected under sterile water irrigation. Hemostasis was impeccable. All the irrigation was suctioned free. The liver was returned to its natural position. The specimen was removed via the medial 12 mm port site with moderate fascial dilation. The fascial site was closed with 3 interrupted sutures of 0 Vicryl. A final inspection was made of the retroperitoneum to assure hemostasis. The abdomen was desufflated. The remaining ports were removed. The skin was injected with local anesthesia. The Miky fascia was closed with 3-0 Vicryl. The skin was closed in 2 layers with interrupted 3-0 Vicryl and running 4-0 Monocryl. Dressing of Exofin was applied. The specimen was incised on the back table to inspect its internal architecture and then it was sent to pathology. DRAINS: None. COMPLICATIONS: None. SPECIMEN: Right adrenal gland mass and associated retroperitoneal tissue. COMPLICATIONS: None. ESTIMATED BLOOD LOSS: 25 mL. ATTESTATION: I performed this procedure with assistance. Jesus Ramirez M.D. JRG:[id number] /[id number] Normal [facility] SURGICAL PATHOLOGYon 021 SURGICAL PATHOLOGY Specimen originated from [facility] Specimen #: [id number] Submitting Physician: Jesus Ramirez M.D. FINAL DIAGNOSIS Right adrenal, adrenalectomy - Adrenal cortical adenoma, 4.8 cm, fully excised. JAZMINE/KIERRA/marina 12/31/2020 R. Valencia Rodriguez, MD (Electronic Signature) SPECIMEN SUBMITTED A: RIGHT ADRENAL GLAND AND MASS CLINICAL DATA ADRENAL MASS GREATER THAN 4CM IN DIAMETER; PREOPERATIVE EXAMINATION; LAPAROSCOPIC RIGHT ADRENALECTOMY GROSS DESCRIPTION A. Received in formalin, designated right adrenal gland and mass is an adrenal gland with attached fibrofatty tissue which weighs 142 grams and measures 11.5 x 6.5 x 4.4 cm. The external surface is inked black. The adrenal gland weighs 49 grams and measures 6.8 x 5 x 3.1 cm. Sectioning of the adrenal gland reveals a roughly spherical yellow moderately firm mass which measures 4.8 x 4.7 x 3.1 cm along one aspect of the stretched segment of recognizable adrenal gland. On cut section, the tumor bulges and is somewhat lobulated. Focal areas of hemorrhage and cystic degeneration are present. The segment of adrenal tissue stretched over the mass shows yellow cortical tissue and virtually no medullary component. Needle Loom Tender sections are submitted as follows: A1-A6 adrenal mass, A7 uninvolved adrenal parenchyma. /arely 12/28/2020 Gross examination performed at [facility], [address] [place] [address] Date of Report: 01/01/2021 Date of Procedure: 12/27/2020 Date of Receipt: 12/27/2020 Submitted by: Jesus Ramirez M.D. Location: [facility] Diagnostic interpretation performed at [facility], [address] [place] [address]. CLIA Number: [id number] Normal [facility] Self Check COVIDon 1 SARS-CoV-2 (COVID-19) RNA HELLEN+probe Ql (Unsp spec) UPPER RESPIRATORY TRACT SWAB Normal [facility] Comment on above: Performed By: #### H CCOVD ####[facility] [address] [place], [place] [phone] SARS-CoV-2 (COVID-19) RNA HELLEN+probe Ql (Unsp spec) Negative for COVID19 (SARS CoV2) by RT-PCR or equivalent method. Normal Negative for COVID19 (SARS CoV2) by RT-PCR or equivalent method. [facility] Comment on above: Result Comment: This test was developed and its performance characteristics determined by [facility]'s [facility] [place]. This test has been authorized by FDA under an Emergency Use Authorization (EUA). This test has been validated in accordance with the FDA's Guidance Document Policy for Diagnostics Testing in Laboratories Certified to Perform High Complexity Testing under CLIA prior to Emergency use Authorization for Coronavirus Disease 2019 during the Public Health Emergency issued on June 11, 2019. Test performed by [facility], [facility] [place], [address] [place] [address]. Performed By: #### H CCOVD ####[place] [phone] CBC and Differentialon 12-14 Abs Baso 0.03 k/uL Normal <0.11 [facility] Comment on above: Performed By: #### I JOHAN, TSH, B12, B1WB, VITD, PTHI, LIPB, SERFOL ####[place] [phone] Abs Yates 0.54 k/uL Normal <0.87 [facility] Comment on above: Performed By: #### I JOHAN, TSH, B12, B1WB, VITD, PTHI, LIPB, SERFOL ####[place] [phone] Abs Neut 5.39 k/uL Normal 1.45-7.50 [facility] Comment on above: Performed By: #### I JOHAN, TSH, B12, B1WB, VITD, PTHI, LIPB, SERFOL ####[place] [phone] Absolute nRBC <0.01 Normal <0.01 [facility] Comment on above: Performed By: #### I JOHAN, TSH, B12, B1WB, VITD, PTHI, LIPB, SERFOL ####[place] [address] [address] [phone] Basophils/100 WBC (Bld) 0.4 % Normal [facility] Comment on above: Performed By: #### I JOHAN, TSH, B12, B1WB, VITD, PTHI, LIPB, SERFOL ####[place] [phone] DTYPE Auto Diff Normal [facility] Comment on above: Performed By: #### I JOHAN, TSH, B12, B1WB, VITD, PTHI, LIPB, SERFOL ####[place] [address] [address] [phone] Eosinophils (Bld) [#/Vol] 0.10 10*3/uL Normal <0.46 [facility] Comment on above: Performed By: #### I JOHAN, TSH, B12, B1WB, VITD, PTHI, LIPB, SERFOL ####[place] [address] [address] [phone] Eosinophils/100 WBC (Bld) 1.3 % Normal [facility] Comment on above: Performed By: #### I JOHAN, TSH, B12, B1WB, VITD, PTHI, LIPB, SERFOL ####[place] [address] [address] [place] [phone] Erythrocyte distribution width (RBC) [Ratio] 12.4 % Normal 11.5-15.0 [facility] Comment on above: Performed By: #### I JOHAN, TSH, B12, B1WB, VITD, PTHI, LIPB, SERFOL ####[place] [address] [address] [phone] Hematocrit (Bld) [Volume fraction] 43.9 % Normal 36.0-46.0 [facility] Comment on above: Performed By: #### I JOHAN, TSH, B12, B1WB, VITD, PTHI, LIPB, SERFOL ####[place] [address] [address] [phone] Hemoglobin (Bld) [Mass/Vol] 14.1 g/dL Normal 11.5-15.5 [facility] Comment on above: Performed By: #### I JOHAN, TSH, B12, B1WB, VITD, PTHI, LIPB, SERFOL ####[place] [address] [address] [phone] Lymphocytes (Bld) [#/Vol] 1.49 10*3/uL Normal 1.00-4.00 [facility] Comment on above: Performed By: #### I JOHAN, TSH, B12, B1WB, VITD, PTHI, LIPB, SERFOL ####[place] [address] [address] [phone] Lymphocytes/100 WBC (Bld) 19.7 % Normal [facility] Comment on above: Performed By: #### I JOHAN, TSH, B12, B1WB, VITD, PTHI, LIPB, SERFOL ####[place] [address] [address] [place] [phone] MCH 27.2 pG Normal 26.0-34.0 [facility] Comment on above: Performed By: #### I JOHAN, TSH, B12, B1WB, VITD, PTHI, LIPB, SERFOL ####[place] [address] [address] [place] [phone] MCHC (RBC) [Mass/Vol] 32.1 g/dL Normal 30.5-36.0 [facility] Comment on above: Performed By: #### I JOHAN, TSH, B12, B1WB, VITD, PTHI, LIPB, SERFOL ####[place] [address] [address] [phone] MCV (RBC) [Entitic vol] 84.6 fL Normal 80.0-100.0 [facility] Comment on above: Performed By: #### I JOHAN, TSH, B12, B1WB, VITD, PTHI, LIPB, SERFOL ####[place] [address] [address] [place] [phone] Monocytes/100 WBC (Bld) 7.2 % Normal [facility] Comment on above: Performed By: #### I JOHAN, TSH, B12, B1WB, VITD, PTHI, LIPB, SERFOL ####[place] [address] [address] [place] [phone] Neutrophils/100 WBC (Bld) 71.4 % Normal [facility] Comment on above: Performed By: #### I JOHAN, TSH, B12, B1WB, VITD, PTHI, LIPB, SERFOL ####[place] [address] [address] [place] [phone] NRBCs 0.0 /100 WBC Normal 0 [facility] Comment on above: Performed By: #### I JOHAN, TSH, B12, B1WB, VITD, PTHI, LIPB, SERFOL ####[place] [address] [address] [phone] Platelet mean volume (Bld) [Entitic vol] 9.4 fL Normal 9.0-12.7 [facility] Comment on above: Performed By: #### I JOHAN, TSH, B12, B1WB, VITD, PTHI, LIPB, SERFOL ####[place] [address] [address] [place] [phone] Platelets (Bld) [#/Vol] 254 10*3/uL Normal 150-400 [facility] Comment on above: Performed By: #### I JOHAN, TSH, B12, B1WB, VITD, PTHI, LIPB, SERFOL ####[place] [address] [place], [place] [phone] RBC (Bld) [#/Vol] 5.19 10*6/uL Normal 3.90-5.20 [facility] Comment on above: Performed By: #### I JOHAN, TSH, B12, B1WB, VITD, PTHI, LIPB, SERFOL ####[address] [phone] WBC (Bld) [#/Vol] 7.55 10*3/uL Normal 3.70-11.00 [facility] Comment on above: Performed By: #### I JOHAN, TSH, B12, B1WB, VITD, PTHI, LIPB, SERFOL ####[address] [phone] Comp Metabolic Panelon 12-14 Albumin [Mass/Vol] 4.4 g/dL Normal 3.9-4.9 [facility] Comment on above: Performed By: #### I JOHAN, TSH, B12, B1WB, VITD, PTHI, LIPB, SERFOL ####[place] [phone] ALP [Catalytic activity/Vol] 127 U/L High 34-123 [facility] Comment on above: Performed By: #### I JHOAN, TSH, B12, B1WB, VITD, PTHI, LIPB, SERFOL ####[address] [place], [place] [phone] ALT [Catalytic activity/Vol] 23 U/L Normal 7-38 [facility] Comment on above: Performed By: #### I JOHAN, TSH, B12, B1WB, VITD, PTHI, LIPB, SERFOL ####[address] [place], [place] [phone] Anion gap [Moles/Vol] 9 mmol/L Normal 9-18 [facility] Comment on above: Performed By: #### I JOHAN, TSH, B12, B1WB, VITD, PTHI, LIPB, SERFOL ####[address] [place] [phone] AST [Catalytic activity/Vol] 20 U/L Normal 13-35 [facility] Comment on above: Performed By: #### I JOHAN, TSH, B12, B1WB, VITD, PTHI, LIPB, SERFOL ####[address] [place] [phone] Bilirubin [Mass/Vol] 0.3 mg/dL Normal 0.2-1.3 [facility] Comment on above: Performed By: #### I JOHAN, TSH, B12, B1WB, VITD, PTHI, LIPB, SERFOL ####[place] [phone] Calcium [Mass/Vol] 9.3 mg/dL Normal 8.5-10.2 [facility] Comment on above: Performed By: #### I JOHAN, TSH, B12, B1WB, VITD, PTHI, LIPB, SERFOL ####[place] [phone] Chloride [Moles/Vol] 105 mmol/L Normal 97-105 [facility] Comment on above: Performed By: #### I JOHAN, TSH, B12, B1WB, VITD, PTHI, LIPB, SERFOL ####[place] [address] [address] [phone] CO2 [Moles/Vol] 23 mmol/L Normal 22-30 [facility] Comment on above: Performed By: #### I JOHAN, TSH, B12, B1WB, VITD, PTHI, LIPB, SERFOL ####[place] [address] [address] [phone] Creatinine [Mass/Vol] 0.59 mg/dL Normal 0.58-0.96 [facility] Comment on above: Performed By: #### I JOHAN, TSH, B12, B1WB, VITD, PTHI, LIPB, SERFOL ####[place] [id number] [place], [place] [phone] eGFR- Amer. >60 Normal [facility] Comment on above: Performed By: #### I JOHAN, TSH, B12, B1WB, VITD, PTHI, LIPB, SERFOL ####[address] [phone] eGFR-All Other Races >60 Normal [facility] Comment on above: Result Comment: eGFR (Estimated GFR) Units of measure: mL/min/1.73 meters squared eGFR is derived from the reexpressed MDRD Study equation using the following parameters: serum creatinine, age, gender and race. The creatinine assay has been calibrated to be traceable to IDMS. An eGFR <60 mL/min/1.73m2 for >3 months is consistent with chronic kidney disease. Refer to KDOQI guidelines for clinical interpretation. In patients with unstable renal function, e.g. those with acute kidney injury, the eGFR may not accurately reflect actual GFR. Performed By: #### I JOHAN, TSH, B12, B1WB, VITD, PTHI, LIPB, SERFOL ####[address] [phone] Glucose [Mass/Vol] 124 mg/dL High 74-99 [facility] Comment on above: Result Comment: The [employer] (ADA) provides guidance for cutoff values for fasting glucose and random glucose. The ADA defines fasting as no caloric intake for at least 8 hours. Fasting plasma glucose results between 100 to 125 mg/dL indicate increased risk for diabetes (prediabetes). Fasting plasma glucose results greater than or equal to 126 mg/dL meet the criteria for diagnosis of diabetes. In the absence of unequivocal hyperglycemia, results should be confirmed by repeat testing. In a patient with classic symptoms of hyperglycemia or hyperglycemic crisis, random plasma glucose results greater than or equal to 200 mg/dL meet the criteria for diagnosis of diabetes. Reference: Standards of Medical Care in Diabetes 2016, [place] [employer] Association. Diabetes Care. 2016.39(Suppl 1). Performed By: #### I JOHAN, TSH, B12, B1WB, VITD, PTHI, LIPB, SERFOL ####[address] [phone] Potassium [Moles/Vol] 4.3 mmol/L Normal 3.7-5.1 [facility] [place] Comment on above: Performed By: #### I JOHAN, TSH, B12, B1WB, VITD, PTHI, LIPB, SERFOL ####[address] [phone] Protein [Mass/Vol] 7.0 g/dL Normal 6.3-8.0 [facility] [place] Comment on above: Performed By: #### I JOHAN, TSH, B12, B1WB, VITD, PTHI, LIPB, SERFOL ####[address] [phone] Sodium [Moles/Vol] 137 mmol/L Normal 136-144 [facility] [place] Comment on above: Performed By: #### I JOHAN, TSH, B12, B1WB, VITD, PTHI, LIPB, SERFOL ####[address] [phone] Urea nitrogen [Mass/Vol] 15 mg/dL Normal 7-21 [facility] [place] Comment on above: Performed By: #### I JOHAN, TSH, B12, B1WB, VITD, PTHI, LIPB, SERFOL ####[address] [phone] Folate, Serumon 12-14-2020 Folate [Mass/Vol] ng/mL Normal >4.7 [facility] Comment on above: Result Comment: A re sult of > 20 ng/mL is not necessarily indicative of a pathologic or treatable condition: it reflects a limitation of the test methodology. Assay reference range: 4.8 to 24.2 ng/mL. Suitable for detection of folate deficiency. Reference: Folate III (Folate III) [package insert V 2.0 Irish]. [facility], [place], [place]: February 2015. Performed By: #### I JOHAN, TSH, B12, B1WB, VITD, PTHI, LIPB, SERFOL ####[address] [phone] Hemoglobin A1con 12-14-2020 Glucose [Mass/Vol] 128 mg/dL Normal [facility] [place] Comment on above: Result Comment: eAG: (Estimated average glucose) is a calculated value from HgbA1c and is medical sales representative of the average blood glucose level in the last 2-3 month period. Performed By: #### H BA1C ####[address] [phone] HbA1c (Bld) [Mass fraction] 6.1 % High 4.3-5.6 [facility] [place] Comment on above: Result Comment: Amer [place] Diabetes Association guidelines indicate that patients with HgbA1c in the range 5.7-6.4% are at increased risk for development of diabetes, and intervention by lifestyle modification may be beneficial. HgbA1c greater or equal to 6.5% is considered diagnostic of diabetes. Performed By: #### H BA1C ####[address] [phone] Iron and TIBCon 12-14-2020 Iron [Mass/Vol] 53 ug/dL Normal 41-186 [facility] [place] Comment on above: Performed By: #### I JOHAN, TSH, B12, B1WB, VITD, PTHI, LIPB, SERFOL ####[address] [place], [place] [phone] TIBC 307 ug/dL Normal 232-386 [facility] [place] Comment on above: Performed By: #### I JOHAN, TSH, B12, B1WB, VITD, PTHI, LIPB, SERFOL ####[address] [phone] Transferrin Saturatn 17 % Normal 15-57 [facility] [place] Comment on above: Performed By: #### I JOHAN, TSH, B12, B1WB, VITD, PTHI, LIPB, SERFOL ####[place] [address] [place], [place] [phone] Lipid Panel, Basicon 021 Cholesterol [Mass/Vol] 238 mg/dL High <200 [facility] [place] Comment on above: Result Comment: <200 mg/dL, Desirable 200-239 mg/dL, Borderline high >239 mg/dL, High Performed By: #### I JOHAN, TSH, B12, B1WB, VITD, PTHI, LIPB, SERFOL ####[address] [phone] Cholesterol in HDL [Mass/Vol] 42 mg/dL Normal >39 [facility] [place] Comment on above: Result Comment: 40-5 9 mg/dL, Acceptable >59 mg/dL, High: Negative risk factor for coronary heart disease <40 mg/dL, Low: Positive risk factor for coronary heart disease Performed By: #### I JOHAN, TSH, B12, B1WB, VITD, PTHI, LIPB, SERFOL ####[address] [phone] Cholesterol in LDL [Mass/Vol] 162 mg/dL High <100 [facility] [place] Comment on above: Result Comment: <100 mg/dL, Optimal 100-129 mg/dL, Near optimal/above optimal 130-159 mg/dL, Borderline high 160-189 mg/dL, High >189 mg/dL, Very high Secondary prevention optimal LDL Cholesterol levels are recommended to be < 70 mg/dL Performed By: #### I JOHAN, TSH, B12, B1WB, VITD, PTHI, LIPB, SERFOL ####[address] [phone] Fasting Time 12 hrs Normal [facility] [place] Comment on above: Performed By: #### I JOHAN, TSH, B12, B1WB, VITD, PTHI, LIPB, SERFOL ####[facility] [place], [place] [phone] LDL:HDL Ratio 3.86 High <2.54 [facility] [place] Comment on above: Result Comment: Bernardino renae: 1. National Cholesterol Education Program ATP III Guideline At-A-Glance Quick Desk Reference: National Heart, Lung, and Blood [place]. National Institutes of Health. 2001: NIH Publication No. 01-3305. 2. An International Atherosclerosis Society position paper: global recommendations for the management of dyslipidemia: executive summary, Atherosclerosis. 2014: 232(2):410-413. Performed By: #### I JOHAN, TSH, B12, B1WB, VITD, PTHI, LIPB, SERFOL ####[address] [phone] Non HDL Cholesterol 196 mg/dL High <130 [facility] [place] Comment on above: Result Comment: <130 mg/dL, Optimal 130-159 mg/dL, Near optimal/above optimal 160-189 mg/dL, Borderline high 190-219 mg/dL, High >219 mg/dL, Very high Secondary prevention optimal non HDL Cholesterol levels are recommended to be < 100 mg/dL Performed By: #### I JOHAN, TSH, B12, B1WB, VITD, PTHI, LIPB, SERFOL ####[address] [phone] TC:HDL Ratio 5.67 High <5.10 [facility] [place] Comment on above: Performed By: #### I JOHAN, TSH, B12, B1WB, VITD, PTHI, LIPB, SERFOL ####[place] [address] [place], [place] [phone] Triglyceride [Mass/Vol] 169 mg/dL High <150 [facility] Comment on above: Result Comment: <150 mg/dL, Normal 150-199 mg/dL, Borderline high 200-499 mg/dL, High >499 mg/dL, Very high Performed By: #### I JOHAN, TSH, B12, B1WB, VITD, PTHI, LIPB, SERFOL ####[place] [address] [place] [phone] VLDL Cholesterol 34 mg/dL High <30 [facility] Comment on above: Performed By: #### I JOHAN, TSH, B12, B1WB, VITD, PTHI, LIPB, SERFOL ####[place] [phone] Nicotine/Metab, Uron 021 3 [place] COTININE,UR,QNT <50 Normal [facility] [place] Comment on above: Performed By: #### U NICOT ####[facility] [address] [place] [address] [phone] [place], [place] [phone] Ur Anabasine Quant <5 Normal [facility] Comment on above: Performed By: #### U NICOT ####[facility] [address] [place] [address] [phone] [place], [place] [phone] Ur Cotinine Quant <15 Normal [facility] Comment on above: Performed By: #### U NICOT ####[facility] [address] [place] [address] [phone] [place], [place] [phone] Ur Nicotine Quant <15 Normal [facility] Comment on above: Result Comment: (NOT E) INTERPRETIVE INFORMATION: Nicotine and Metabolites, Urine, Quantitative Methodology: Quantitative Liquid Chromatography-Tandem Mass Spectrometry Positive cutoff: Nicotine 15 ng/mL Cotinine 15 ng/mL 0-JU-Mtxwljnf 50 ng/mL Anabasine 5 ng/mL For medical purposes only; not valid for forensic use. This test is designed to evaluate recent use of nicotine-containing products. Passive and active exposure cannot be discriminated definitively, although a cutoff of 100 ng/mL cotinine is frequently used for surgery qualification purposes. For smoking cessation programs or compliance testing, the absence of expected drug(s) and/or drug metabolite(s) may indicate non-compliance, inappropriate timing of specimen collection relative to drug administration, poor drug absorption, diluted/adulterated urine, or limitations of testing. The concentration value must be greater than or equal to the cutoff to be reported as positive. Anabasine is included as a biomarker of tobacco use, versus nicotine replacement. Interpretive questions should be directed to the laboratory. This test was developed and its performance characteristics determined by [employer]. It has not been cleared or approved by the US Food and Drug Administration. This test was performed in a CLIA certified laboratory and is intended for clinical purposes. Performed By: [facility] [address] [place] [address] Hand Loom Weaver: Norma Guerra MD Performed By: #### U NICOT ####[address] [phone] [place] [address] [place], [place] [phone] Ur Nornicotine Quant Testing is no longer included in the battery. Normal [facility] Comment on above: Performed By: #### U NICOT ####[address] [phone] [place] [address] [place], [place] [phone] PTH, Intacton 12-14-2020 PTH, Intact 72 pg/mL High 15-65 [facility] [place] Comment on above: Performed By: #### I JOHAN, TSH, B12, B1WB, VITD, PTHI, LIPB, SERFOL ####[place] [address] [place], [place] [phone] TSHon 12-14-2020 TSH Qn 0.531 m[IU]/L Normal 0.270-4.200 [facility] Comment on above: Performed By: #### I JOHAN, TSH, B12, B1WB, VITD, PTHI, LIPB, SERFOL ####[place] [address] [place] [address], [place] [phone] Type and SCR (30D)on 021 ABO/RH(D) Positive Normal [facility] Comment on above: Performed By: #### T SCR30 ####[facility] [place], [place] [phone] Vitamin B1, Whole Blon 12-14 Vitamin B1 (TDP), WB 198.9 nmol/L Normal 84.0-213.0 [facility] Comment on above: Result Comment: This assay measures the concentration of thiamine diphosphate (TDP), the primary active form of vitamin B1. Approximately 90 percent of vitamin B1 present in whole blood is TDP. Thiamine and thiamine monophosphate, which comprise the remaining 10 percent, are not measured. This test was developed and its performance characteristics determined by [facility] [place] ( [facility]). It has not been cleared or approved by the FDA. [facility] is regulated under CLIA as qualified to perform high complexity testing. This test is used for clinical purposes. It should not be regarded as investigational or for research. Performed By: #### I JOHAN, TSH, B12, B1WB, VITD, PTHI, LIPB, SERFOL ####[facility] [place], [place] [phone] Vitamin B12on 12-14-2020 Cobalamin (Vitamin B12) [Mass/Vol] 929 pg/mL Normal 232-1245 [facility] Comment on above: Performed By: #### I JOHAN, TSH, B12, B1WB, VITD, PTHI, LIPB, SERFOL ####[facility] [address], [place] [phone] Vitamin D 25 Hydroxyon 12-14 Vitamin D 25 Hydroxy 26.7 ng/mL Low 31.0-80.0 [facility] Comment on above: Result Comment: Clas sification of 25 [place] Vitamin D status: Insufficiency/Moderate Deficiency: < or = 30 ng/mL Sufficiency/Optimal Levels: 31 to 80 ng/mL Toxicity: > 100 ng/mL Test performed by chemiluminescent immunoassay. Performed By: #### I JOHAN, TSH, B12, B1WB, VITD, PTHI, LIPB, SERFOL ####[facility] [address] [place], [place] [phone] HISTORY PHYSICALon HISTORY PHYSICAL HNO ID: [id number] Author: Shani Cabrales APRN.BRICKMASON SUPERVISOR Service: ? Author Type: Nurse Practitioner Type: HANDP Filed: 12/12/2020 12:23 PM Note Text: PREANESTHESIA CONSULT CLINIC TELEHEALTH VISIT Patient has been identified by name and date of : Yes This is a virtual visit using [employer] video visit. It require patient-provider interaction for the medical decision making as documented below. Reason for contact: PACC visit Accompanied by: Self Scheduled Surgery: LAPAROSCOPIC ADRENALECTOMY laparoscopic ultrasound Subjective CHIEF COMPLAINT: Patient presents with: Pre-Op Visit HPI: 55 year old female with history of adrenal mass. Pt denies pain, states was incidental finding during gastrci bypass testing and eval. Now to have LAPAROSCOPIC ADRENALECTOMY laparoscopic ultrasound. Pt takes [place] for chronic pain. Pain management per Tawnya doctor, pt unable to recall name. She denies abdominal pain, nausea, vomiting, fevers or chills. ACTIVE PROBLEM LIST Elevated Glucose Gerd (Gastroesophageal Reflux Disease) Adrenal Mass (Hcc) Bmi 45.0-49.9, Adult (Hcc) PAST MEDICAL HISTORY Diagnosis Date - Adrenal mass (HCC) 12/12/2020 - Elevated glucose 12/12/2020 - GERD (gastroesophageal reflux disease) 12/12/2020 PAST SURGICAL HISTORY Procedure Laterality Date - PAST SURGICAL HISTORY OF left LASHAY - PAST SURGICAL HISTORY OF Left breast duct infection surgery x 2 - PAST SURGICAL HISTORY OF right knee arthroscopy FAMILY HISTORY Problem Relation Age of Onset - Cancer Mother - Cancer Father Social History Tobacco Use - Smoking status: Former Smoker Packs/day: 1.00 Years: 40.00 Pack years: 40.00 Types: Cigarettes Quit date: 2019 Years since quittin.6 - Smokeless tobacco: Never Used Substance Use Topics - Alcohol use: Not on file Comment: 2-3 per month - Drug use: Not Currently ALLERGIES Allergen Reactions - Ciprofloxacin Unknown MEDICATIONS: Current Outpatient Medications Medication Sig - pantoprazole DR (PROTONIX) 40 mg tablet Take 1 tablet by mouth once daily. - VITAMIN B COMPLEX ORAL Take by mouth once daily. - melatonin 10 mg cap Take 10 mg by mouth once daily. - Coenzyme Q10 (CO Q-10) 200 mg cap Take 200 mg by mouth once daily. - magnesium oxide (MAG-OX) 400 mg (241.3 mg magnesium) tablet Take 400 mg by mouth once daily. - omega-3 fatty acids (FISH OIL CONCENTRATE) 1,000 mg cap Take 1 g by mouth once daily. - MULTIVITAMIN ORAL Take by mouth once daily. - calcium carbonate-vitamin D3 (OYSTER SHELL CALCIUM-VIT D3) 500 mg(1,250mg) -200 unit pwpk Take 200 mg by mouth twice daily. - HYDROcodone-acetaminophen (NORCO) 5-325 mg per tablet Take 1 tablet by mouth twice daily. - ibuprofen (MOTRIN) 800 mg tablet Take 800 mg by mouth every 6 hours as needed. - LACTOBACILLUS ACIDOPHILUS ORAL Take by mouth once daily. No current facility-administered medications for this visit. REVIEW OF SYSTEMS: Pain Assessment: General: No weight loss, malaise or fevers. Neuro: No history of TIA's, stroke, CHORUS DANCER tumor, impaired sensorium, hemiplegia, paraplegia or quadraplegia. No neurological symptoms or problems. Respiratory: Positive for NEREIDA resovled with weight loss, per pt retested and resolved NEREIDA, Negative for Current cough Cardiovascular: No history of HTN requiring medication, no history of angina, CHF, CT, cardiac surgery or stents. Denies rest pain, gangrene or revascularization/amputation for PVD. No history of cardiovascular symptoms or problems. GI: Positive for GERD, Negative for Abdominal pain, Liver disease : No history of dysuria, frequency or incontinence,, stones or chronic kidney disease Endocrine: Diabetes Mellitus with diet control pt no longer taking metformin Hematology: No history of bleeding or clotting disorder. Pt is not taking anti-coagulation or platelet medications. No history of hematological symptoms or problems. Oncology: No history of CA metastasis, chemo within 30 days, or radiotherapy within 90 days. Has not lost 10% of body wt in 6 months. No history of oncological symptoms or problems. Psych: No history of psychiatric symptoms or problems. Musculoskeletal: Joint pain see HPI Skin: Negative for lesions, rash and itching. Objective PHYSICAL EXAM: BP 135/86[per pt BP at Dr appt yesterday[ Pulse [pt unable to palpate radial or carotid pulse[ Ht 5' 4 (1.63m) Wt 277 lb (125.6kg) BMI 47.52 kg/(m2). VIDEO EXAM: (if completed, performed via video enabled technology) GENERAL: alert and appropriate, in no distress, well-hydrated, well nourished and happy, smiling, interactive SKIN: no rash noted HEAD: normocephalic, no abnormality or lesion noted EYES: no injection and visual acuity is grossly normal EARS: external ears normal, no mastoid tenderness NOSE: external nose normal without rhinorrhea OROPHARYNX: moist mucus membranes, no tonsillar hypertrophy/exudate, uvula midline and p (more content not included)... Normal [facility] Free Paco, UR LCMSMSon 11-21 Collect Lgth, UFRCRT 24 Normal [facility] Comment on above: Performed By: #### U FRCRT ####[facility] [address] [place] [address] [phone] Ville [address] [place] [phone]#### PV ####[place] [address] [place] [phone] Creatinine [Mass/Vol] 81 mg/dL Normal [facility] Comment on above: Performed By: #### U FRCRT ####[facility] [address] [place] [address] [phone] [place]ille [address] [place] [phone]#### PV ####[place] [address] [place] [phone] Total Volume, UFRCRT 1532 Normal [facility] Comment on above: Performed By: #### U FRCRT ####[facility] [address] [place], [place] [phone] [place] [address] [place] [phone]#### PV ####[place] [address] [place] [phone] UR Paco Free Interp SEE NOTE Normal [facility] Comment on above: Result Comment: (NOT E) INTERPRETIVE INFORMATION: Cortisol Urine Free by LC-MS/MS Access complete set of age- and/or gender-specific reference intervals for this test in the [facility] Test Directory ([facility]). This test was developed and its performance characteristics determined by [employer]. It has not been cleared or approved by the US Food and Drug Administration. This test was performed in a CLIA certified laboratory and is intended for clinical purposes. Performed by [employer], [address] [place] [address] [email or web address], Norma Guerra MD, Lab. Director Performed By: #### U FRCRT ####[address] [phone] [place] [phone]#### PV ####[place] [address] [place] [phone] UR Paco Free ug/d 24.8 ug/d Normal <=45.0 [facility] Comment on above: Performed By: #### U FRCRT ####[address] [phone] [place] [address] [place] [phone]#### PV ####[place] [address] [place] [phone] UR Paco Free ug/L 16.20 ug/L Normal [facility] Comment on above: Performed By: #### U FRCRT ####[address] [phone] [place] [address] [place] [phone]#### PV ####[place] [address] [place], [place] [phone] UR Cortisol ug/g cloth stretcher 20.00 ug/g COBOL DEVELOPER Normal [facility] Comment on above: Result Comment: (NOT E) Reference Interval: Cortisol ug/g cloth stretcher Female Prepubertal: Less than 25 ug/g cloth stretcher 18 years and older: Less than 24 ug/g cloth stretcher : Less than 59 ug/g cloth stretcher Male Prepubertal: Less than 25 ug/g cloth stretcher 18 years and older: Less than 32 ug/g cloth stretcher Performed By: #### U FRCRT ####[facility] [address] [phone] Health [facility] Township[address] [place] AveC[place], [place] [phone]#### PV ####[place] [address] [place] [address], [place] [phone] UR,Creatinine mg/day 1241 mg/d Normal 500-1400 [facility] Comment on above: Performed By: #### U FRCRT ####[address] [phone] Ville [address] [place] [address], [place] [phone]#### PV ####[place] [address] [place] AveCPatricia [place] [phone] Period / Volumeon 11-21-2020 Collection End Date [id number] [facility] Comment on above: Performed By: #### P V ####[place] [address] [place] [address], [place] [phone] Performed By: #### U FRCRT ####[address] [phone] Health [facility] Township[address] [place] AveCBlack[place], [place] [phone]#### PV ####[facility] [place] [address], [place] [phone] Collection End Time 0700 Normal [facility] Comment on above: Performed By: #### P V ####[place] [address] [place] [address], [place] [phone] Performed By: #### U FRCRT ####[address] [phone] Health Washington Township[address] [place] AveCPatricia Ville [phone]#### PV ####[facility] [place] AveCPatricia [place] [phone] Collection Start Date Normal [facility] Comment on above: Performed By: #### P V ####[place] [address] [place] [address] [place] [phone] Performed By: #### U FRCRT ####[address] [phone] [place] [address] [place] AvDaniel [place] [phone]#### PV ####[place] [address] [place] [address]CPat[address] [phone] Collection Start Time 0700 Normal [facility] Comment on above: Performed By: #### P V ####[place] [address] [place] [phone] Performed By: #### U FRCRT ####[address] [phone] Health [facility] Township[address] [place] AveCPatricia [place]ille [phone]#### PV ####[facility] [place] AveCPatricia [place] [phone] Period 24 hr Normal [facility] Comment on above: Performed By: #### P V ####[place] [address] [place] AveCPatricia [place] [phone] Performed By: #### U FRCRT ####[address] [phone] Health Washington Township[address] [place], [place] [phone]#### PV ####[address] [phone] Volume 1532 mL Normal [facility] [place] Comment on above: Performed By: #### P V ####[address] [phone] Result Comment: Melanie ected on 11/25 AT 1245: Previously reported as 1550 Performed By: #### U FRCRT ####[facility] [place], [place] [phone] [phone]#### PV ####[address] [phone] Solis Renin Ratioon 1 Solis Renin Ratio 1 Normal <4 [facility] Comment on above: Result Comment: An i ncreased Solis/Renin ratio is suggestive, but not diagnostic of primary aldosteronism if aldosterone concentration is >15 ng/dL. Performed By: #### A LDREN, DHEAS ####[address] [phone] Aldosterone 10.4 ng/dL Normal 3.1-35.4 [facility] Comment on above: Result Comment: Norm al serum levels of aldosterone are dependent on the sodium intake and whether the patient is upright or supine. High sodium intake will tend to suppress serum aldosterone, whereas low sodium intake will elevate serum aldosterone. The reference interval for serum aldosterone are based on a normal sodium intake. Supine reference range <23.1 ng/dL Performed By: #### A LDREN, DHEAS ####[address] [phone] Direct Renin 7.5 pg/mL Normal [facility] Comment on above: Result Comment: [place] n Reference Range, 41-99 years: Upright: 3.6-81.6 pg/mL Supine: 2.5-45.1 pg/mL Performed By: #### A LDREN, DHEAS ####[facility] [address] [place], [place] [phone] Comp Metabolic Panelon 11-20 Albumin [Mass/Vol] 4.2 g/dL Normal 3.9-4.9 [facility] ALP [Catalytic activity/Vol] 113 U/L Normal 34-123 [facility] ALT [Catalytic activity/Vol] 17 U/L Normal 7-38 [facility] Anion gap [Moles/Vol] 4 mmol/L Low 9-18 [facility] AST [Catalytic activity/Vol] 13 U/L Normal 13-35 [facility] Bilirubin [Mass/Vol] 0.2 mg/dL Normal 0.2-1.3 [facility] Calcium [Mass/Vol] 8.7 mg/dL Normal 8.5-10.2 [facility] Chloride [Moles/Vol] 113 mmol/L High 97-105 [facility] CO2 [Moles/Vol] 21 mmol/L Low 22-30 [facility] Creatinine [Mass/Vol] 0.46 mg/dL Low 0.58-0.96 [facility] eGFR- Amer. >60 Normal [facility] eGFR-All Other Races >60 Normal [facility] Comment on above: Result Comment: eGFR (Estimated GFR) Units of measure: mL/min/1.73 meters squared eGFR is derived from the reexpressed MDRD Study equation using the following parameters: serum creatinine, age, gender and race. The creatinine assay has been calibrated to be traceable to IDMS. An eGFR <60 mL/min/1.73m2 for >3 months is consistent with chronic kidney disease. Refer to KDOQI guidelines for clinical interpretation. In patients with unstable renal function, e.g. those with acute kidney injury, the eGFR may not accurately reflect actual GFR. Glucose [Mass/Vol] 155 mg/dL High 74-99 [facility] Comment on above: Result Comment: The [place] Diabetes Association (ADA) provides guidance for cutoff values for fasting glucose and random glucose. The ADA defines fasting as no caloric intake for at least 8 hours. Fasting plasma glucose results between 100 to 125 mg/dL indicate increased risk for diabetes (prediabetes). Fasting plasma glucose results greater than or equal to 126 mg/dL meet the criteria for diagnosis of diabetes. In the absence of unequivocal hyperglycemia, results should be confirmed by repeat testing. In a patient with classic symptoms of hyperglycemia or hyperglycemic crisis, random plasma glucose results greater than or equal to 200 mg/dL meet the criteria for diagnosis of diabetes. Reference: Standards of Medical Care in Diabetes 2016, [place] Diabetes Association. Diabetes Care. 2016.39(Suppl 1). Potassium [Moles/Vol] 3.8 mmol/L Normal 3.7-5.1 [facility] Protein [Mass/Vol] 6.7 g/dL Normal 6.3-8.0 [facility] Sodium [Moles/Vol] 138 mmol/L Normal 136-144 [facility] Urea nitrogen [Mass/Vol] 20 mg/dL Normal 7-21 [facility] DHEA-Son 11-20-2020 DHEA-S 17.9 ug/dL Low 18.9-205.0 [facility] Comment on above: Result Comment: Refe rence ranges are age and gender specific. For additional information, reference range tables can be found in the laboratory test directory. The normal values are based on the following source: Dehydroepiandrosterone sulfate (DHEA S) [package insert V 17.0 Irish]. [facility], [place], [place]: November 2012. Performed By: #### A LDREN, DHEAS ####[facility] [place], [place] [phone] Metanephrines,Fr Plason 11-11 Metanephrine, Fr Plas 30 pg/mL Normal 12-67 [facility] Comment on above: Result Comment: Refe rence Ranges: Hypertensive adult > or = 18 yrs old: 12-72 pg/mL Normotensive adult > or = 18 yrs old: 12-67 pg/mL Normotensive children < 18 yrs old: 10-95 pg/mL This test was developed and its performance characteristics determined by [facility] ( [facility]). It has not been cleared or approved by the FDA. [facility] is regulated under CLIA as qualified to perform high complexity testing. This test is used for clinical purposes. It should not be regarded as investigational or for research. Performed By: #### P METAN ####[facility] [place], [place] [phone] Normetanephrine, Fr Plas 60 pg/mL Normal 18-101 [facility] Comment on above: Result Comment: Refe rence Ranges: Hypertensive adult > or = 18 yrs old: 24-145 pg/mL Normotensive adult > or = 18 yrs old: 18-101 pg/mL Normotensive children < 18 yrs old: 22-83 pg/mL Methyldopa may cause false elevation of normetanephrine levels in this assay. If patient is on methyldopa, interpret results with caution. This test was developed and its performance characteristics determined by [facility]'s [facility] ( [facility]). It has not been cleared or approved by the FDA. [facility] is regulated under CLIA as qualified to perform high complexity testing. This test is used for clinical purposes. It should not be regarded as investigational or for research. Performed By: #### P METAN ####[facility] [place], [place] [phone] CT-CT ABDOMEN WO/W CON - OVE RREADon 11-08-2020 CT-CT ABDOMEN WO/W CON - OVERREAD * * *Final Report* * * DATE OF EXAM: Nov 08 2020 12:00AM OUT 0002 - CT OUTSIDE CD DICOM IMPORT -NBNR / PROCEDURE REASON: Tumor Board Discussion * * * * Physician Interpretation * * * * EXAMINATION: OUTSIDE IMAGING INTERPRETATION Indication for the Request / Reason for Overread: Tumor Board Discussion Service Requesting Consult: General surgery Any specific Issue(s) to be discussed: Tumor Board discussion Images Reviewed: CT without and with contrast of the Abdomen performed on 11/08/2020 Overread Date: 11/12/2020 5:43 PM Clinical History: Incidentally discovered right adrenal mass. Comparison: None. RESULT: Liver: No mass. Biliary: No bile duct dilation. Gallbladder present. Spleen: No mass. No splenomegaly. Pancreas: No mass or duct dilation. Adrenals:4.0 x 4.7 cm heterogeneous right adrenal nodule, without discernible macroscopic fat. There is a tiny focus of internal calcification on 8:32. Precontrast attenuation is greater than 10 Hounsfield studies, though the presence of internal heterogeneity would preclude characterization using noncontrast criteria regardless. Normal appearance of left adrenal gland. Kidneys: 2 cm cyst in left upper pole with dependent calcification, probably milk of calcium, possibly within a calyceal diverticula. Scattered additional left-sided renal calculi, such a 0.3 cm stone in left lower pole on 8:57. No right-sided calculus. No focal solid renal mass. No hydronephrosis. GI tract: No dilation or wall thickening along visualized segments. Lymph nodes: No abdominal lymphadenopathy. Mesentery/Peritoneum: No ascites or mass. Retroperitoneum: No mass. Vasculature: The celiac axis and SMA are patent. The portal vein and branches, splenic vein, SMV, and hepatic veins are patent. Atherosclerotic aorta iliac vascular calcination. No abdominal aortic aneurysm. Bones/Soft Tissues: Degenerative changes. Lower thorax: Mild basilar atelectasis/scarring. IMPRESSION: INDETERMINATE 4.7 CM RIGHT ADRENAL MASS. GIVEN INTERNAL HETEROGENEITY, CHARACTERIZATION CANNOT BE ASSESSED BY IMAGING, INCLUDING DEDICATED ADRENAL MASS PROTOCOL STUDIES. SUCH, SURGICAL CONSULT IS SUGGESTED. NO METASTATIC DISEASE SEEN IN THE ABDOMEN. NONOBSTRUCTING LEFT RENAL CALCULI. LEFT UPPER POLE CYST OR CALYCEAL DIVERTICULUM WITH ASSOCIATED DEPENDENT CALCIFICATION/MILK OF CALCIUM. Laboratory Courier: CHOLO Transcribe Date/Time: Nov 12 2020 5:43P Dictated by : MILLI TRISTAN MD This examination was interpreted and the report reviewed and electronically signed by: MILLI TRISTAN MD on Nov 12 2020 5:55PM EST [id number] Normal [facility] CT-CT ABDOMEN WO/W CON IMPOR Ton 11-08-2020 CT-CT ABDOMEN WO/W CON IMPORT Images were obtained outside of [facility] [id number] Normal [facility] Chadd 11-01-2020 HARDYN Telephone ([facility]) JESSICA DILLARD ([id number]) 1965 F Date Time Provider Department 11/01/20 JESUS RAMIREZGBMI During your visit today, we recorded the following information about you: Zev Jean Baptiste [facility] Patient Service Spec 11/01/2020 3:15 PM Signed Pt called back with fax # for [facility]. Number is [phone]. Adrianna Dionne Pss 11/02/2020 1:23 PM Signed Patient requesting to be notified once needed lab order and CT Adrenal order has been faxed to [facility]. Okay to leave voice message through #[phone]. Please advise. Ysabel Linton Pss 11/06/2020 9:04 AM Addendum Faxed orders for CT adrenal and Creatinine draw to [facility] at [phone]. Left message for patient on her cell phone to make her aware. Ysabel Linton Pss Allergies As of Date: 11/01/2020 Noted Allergy Reaction CIPROFLOXACIN 10/19/2020 16 - Unknown Date Reviewed: 10/19/2020 Reviewed by: Maris Caruso RN - Fully Assessed Reason for Visit: Patient Question [1477] Primary Visit Diagnosis:Adrenal nodule (HCC) [E27.8] Order(s):CREATININE BLD [SQCRET] Order #: [id number] FUTURE Prescriptions as of 11/06/2020 - VITAMIN B COMPLEX ORAL Take by mouth once daily. - melatonin 10 mg cap Take 10 mg by mouth once daily. - Coenzyme Q10 (CO Q-10) 200 mg cap Take 200 mg by mouth once daily. - magnesium oxide (MAG-OX) 400 mg (241.3 mg magnesium) tablet Take 400 mg by mouth once daily. - omega-3 fatty acids (FISH OIL CONCENTRATE) 1,000 mg cap Take 1 g by mouth once daily. - MULTIVITAMIN ORAL Take by mouth once daily. - calcium carbonate-vitamin D3 (OYSTER SHELL CALCIUM-VIT D3) 500 mg(1,250mg) -200 unit pwpk Take 200 mg by mouth twice daily. - LACTOBACILLUS ACIDOPHILUS ORAL Take by mouth once daily. - HYDROcodone-acetaminophen (NORCO) 5-325 mg per tablet Take 1 tablet by mouth twice daily. - pantoprazole DR (PROTONIX) 40 mg tablet Take 1 tablet by mouth once daily. - cholecalciferol, vitamin D3, 50,000 unit tab Take 1 tablet by mouth once each week for 8 doses. - metFORMIN (GLUCOPHAGE) 500 mg tablet - Cholecalciferol, Vitamin D3, 5,000 unit cap - terbinafine HCl (LAMISIL) 250 mg tablet TAKE 1 TABLET BY MOUTH ONCE A DAY FOR 12 WEEKS - ibuprofen (MOTRIN) 800 mg tablet Take 800 mg by mouth every 6 hours as needed. Problem List As Of Date: 11/01/2020 (None) Encounter Status:Closed by JESUS RAMIREZ on 11/05/20 [facility] HISTORY PHYSICALon HISTORY PHYSICAL HNO ID: [id number] Author: Shade Hilton MD Service: General Surgery Author Type: Resident Type: HANDP Filed: 10/19/2020 10:14 AM Note Text: Attestation signed by Jesus Ramirez MD at 10/19/2020 10:27 AM Jesus Ramirez MD GENERAL SURGERY HANDP SERVICE DATE: 10/19/2020 SERVICE TIME: 10:13 AM ASSESSMENT AND PLAN Patient Active Hospital Problem List: No active hospital problems. Patient is a 55 year old female with history of morbid obesity presenting for EGD as part of pre-operative evaluation for bariatric surgery. PAST MEDICAL HISTORY: No past medical history on file. PAST SURGICAL HISTORY: No past surgical history on file. FAMILY HISTORY: No family history on file. SOCIAL HISTORY: Social History Tobacco Use - Smoking status: Light Tobacco Smoker - Smokeless tobacco: Never Used Substance Use Topics - Alcohol use: Not on file - Drug use: Not on file MEDICATIONS: Prior to Admission Medications: pantoprazole DR (PROTONIX) 40 mg tablet, Take 1 tablet by mouth once daily., Disp: 30 tablet, Rfl: 1 cholecalciferol, vitamin D3, 50,000 unit tab, Take 1 tablet by mouth once each week for 8 doses., Disp: 4 tablet, Rfl: 1 metFORMIN (GLUCOPHAGE) 500 mg tablet, , Disp: , Rfl: Cholecalciferol, Vitamin D3, 5,000 unit cap, , Disp: , Rfl: terbinafine HCl (LAMISIL) 250 mg tablet, TAKE 1 TABLET BY MOUTH ONCE A DAY FOR 12 WEEKS, Disp: , Rfl: 2 ibuprofen (MOTRIN) 800 mg tablet, Take 800 mg by mouth every 6 hours as needed., Disp: , Rfl: 3 No current facility-administered medications for this encounter. ALLERGIES: ALLERGIES Allergen Reactions - Ciprofloxacin Unknown COMPLETE REVIEW OF SYSTEMS: GENERAL: No weight loss, malaise or fevers RESPIRATORY: Negative for cough, hemoptysis, wheezing, COPD, dyspnea or shortness of breath CARDIOVASCULAR: Negative for chest pain, leg swelling, hypertension, CHF or palpitations GI: No nausea, vomiting, or diarrhea OBJECTIVE PHYSICAL EXAM: There were no vitals taken for this visit. There is no height or weight on file to calculate BMI. GENERAL: Alert, no distress, cooperative LUNGS: Lungs clear to auscultation, Good diaphragmatic excursion CARDIAC: Normal S1 and S2; no rubs, murmurs, or gallops ABDOMEN: Abdomen soft, non-tender, BS normal, No masses or organomegaly SIGNATURE: Shade Hilton MD PATIENT NAME: Jessica Dillard DATE: October 19, 2020 TIME: 9:50 AM PAGER/CONTACT #: [phone] [facility] NURSING PROGon 10-19-2020 NURSING PROG HNO ID: [id number] Author: Maris Caruso RN Service: ? Author Type: Registered Nurse Type: Nursing Progress Note Filed: 10/19/2020 9:54 AM Note Text: PATIENT EDUCATION TOPIC: PROCEDURE / SURGERY: Procedure/Surgery: EGD PATIENT NAME: Jessica Dillard PATIENT LOCATION: ENDO POOL/[facility] ENDO POOL READINESS TO LEARN COGNITIVE ABILITY: Alert and oriented MOTIVATION TO LEARN: Interested FAMILY SUPPORT: Unable to assess - Family not present INSTRUCTION PROVIDED TO: Patient PATIENT LEARNS BEST BY: Verbal Instruction FACTORS AFFECTING LEARNING: None PHYSICAL LIMITATIONS AFFECTING LEARNING: None LEARNING RESPONSE DIAGNOSIS: ADULT: Pre-op exam PATIENT/FAMILY RESPONSE: Verbalizes understanding of: PRE-PROCEDURE INSTRUCTIONS-Correct action to take to follow pre-procedure instructions METHOD OF INSTRUCTION: Verbal instruction FOLLOW-UP PLAN: Complete - No need for follow-up INSTRUCTIONAL AIDS USED: NA SUPPLEMENTAL MATERIAL PROVIDED TO PATIENT: None REFERRAL (RECOMMENDATION): None Electronically Signed By: Maris Coronel [facility] SURGICAL PATHOLOGYon 021 SURGICAL PATHOLOGY Specimen originated from [facility] Specimen #: [id number] Submitting Physician: Jeuss Ramirez M.D. FINAL DIAGNOSIS 1. Stomach, body, biopsy (A) - Gastric antral-type mucosa with reactive gastropathy. - Separate fragment of gastric body-type mucosa with no diagnostic abnormality. 2. Esophagus, Z-line, biopsy (B) - Squamous mucosa with focal reactive epithelial changes suggestive of gastroesophageal reflux. - Gastric cardia-type mucosa with mild chronic inflammation, negative for intestinal metaplasia or dysplasia. JEL/kll 10/22/2020 COMMENT 1. No Helicobacter pylori organisms are identified. Mal Riggs M.D. (Electronic Signature) SPECIMEN SUBMITTED A: GASTRIC BODY BIOPSY B: Z- LINE, BIOPSY CLINICAL DATA EGD; PRE OP EXAM; HX OF ULCERS, HX OF ESOPHAGITIS; COLD BIOPSY A: R/O H PYLORI, HX OF GASTRIC ULCERS B: Z-LINE R/O OLIVA'S GROSS DESCRIPTION A. Received in formalin are multiple pieces of kruse, soft tissue aggregating to 1.4 x 0.2 x 0.2 cm. Totally submitted in one cassette. B. Received in formalin are three pieces of kruse, soft tissue aggregating to 0.7 x 0.2 x 0.2 cm. Totally submitted in one cassette. Gross examination performed at [facility], [address] [place] [address] 10/19/2020 5:46:23 PM Date of Report: 10/22/2020 Date of Procedure: 10/19/2020 Date of Receipt: 10/19/2020 Submitted by: Jesus Ramirez M.D. Location: END Diagnostic interpretation performed at [facility], [address] [place] [address]. CLIA Number: [id number] [facility] 09-13-2020 CNPN Telephone ([facility]) JESSICA DILLARD ([id number]) 1965 F Date Time Provider Department 09/13/20 STELLA PIKE [facility] During your visit today, we recorded the following information about you: Johanna Kimball [facility] 09/13/2020 12:48 PM Signed Pt had blood test faxed to us from Dr. An office, requesting a call back to go over results and medication if needed. Allergies As of Date: 09/13/2020 (No Known Allergies) Date Reviewed: 08/02/2020 Reviewed by: Deborah Ch - Fully Assessed Reason for Visit: Results, Lab [1201] Prescriptions as of 09/13/2020 Sig: PANTOPRAZOLE 40 MG TABLET,DEL* Take 1 tablet by mouth once d* CHOLECALCIFEROL (VITAMIN D3) * Take 1 tablet by mouth once e* METFORMIN 500 MG TABLET CHOLECALCIFEROL (VITAMIN D3) * TERBINAFINE HCL 250 MG TABLET TAKE 1 TABLET BY MOUTH ONCE A* IBUPROFEN 800 MG TABLET Take 800 mg by mouth every 6 * Problem List As Of Date: 09/13/2020 (None) Encounter Status:Closed by JOHANNA GALEANA on 10/05/20 [facility] 09-12-2020 CNPN Telephone ([facility]) JESSICA DILLARD ([id number]) 1965 F Date Time Provider Department 09/12/20 [place] [facility] During your visit today, we recorded the following information about you: Wendie Jean 09/12/2020 1:03 PM Signed Patient called with questions regarding recent lab work return call to [phone] Barbara Dan RN 09/12/2020 1:47 PM Signed Patient called inquiring if we had received lab work from an outside facility which Dr. Pike had requested d/t her elevated cholesterol. Let her know that I did not see anything scanned into [employer] and that she may call Dr. Pike's office to see if he had received this. She is in agreement with same. Allergies As of Date: 09/12/2020 (No Known Allergies) Date Reviewed: 08/02/2020 Reviewed by: Deborah Ch - Fully Assessed Reason for Visit: Patient Question [1717] Prescriptions as of 09/12/2020 Sig: PANTOPRAZOLE 40 MG TABLET,DEL* Take 1 tablet by mouth once d* CHOLECALCIFEROL (VITAMIN D3) * Take 1 tablet by mouth once e* METFORMIN 500 MG TABLET CHOLECALCIFEROL (VITAMIN D3) * TERBINAFINE HCL 250 MG TABLET TAKE 1 TABLET BY MOUTH ONCE A* IBUPROFEN 800 MG TABLET Take 800 mg by mouth every 6 * Problem List As Of Date: 09/12/2020 (None) Encounter Status:Closed by GISSEL BARBARA on 09/12/20 Normal [facility] COVID-19 Antigenon COVID-19 Antigen Results called at 1455 on 06/25/20 Reason for Exam Viral syndrome Nasal Reason for Exam: Viral syndrome Healthcare Worker?: Yes : Nasal Maryellen Reference Maryellen Reference Negative SARS-CoV+SARS-CoV-2 (COVID-19) Ag [Presence] in Respiratory specimen by Rapid immunoassay Positive for SARS Antigen by ZARINA COVID19 Blank Space Maryellen Disclaimer The Maryellen SARS Antigen ZARINA does not differentiate Maryellen Disclaimer between SARS-CoV and SARS-CoV-2. COVID19 Blank Space Maryellen Disclaimer This test was developed and its performance Maryellen Disclaimer characteristic determined by [employer] and Maryellen Disclaimer validated at [facility]. This Maryellen Disclaimer test has not been FDA cleared or approved. This Maryellen Disclaimer test has been authorized by FDA under an Emergency Use Maryellen Disclaimer Authorization (EUA). This test has been validated Maryellen Disclaimer in accordance with the FDA's Guidance Document (Policy Maryellen Disclaimer for Diagnostics Testing in Laboratories Certified to Maryellen Disclaimer Perform High Complexity Testing under CLIA prior to Maryellen Disclaimer Emergency Use Authorization for Coronavirus Maryellen Disclaimer is during the Public Health Emergency) Maryellen Disclaimer issued on July 14, 2019. This test is only authorized Maryellen Disclaimer for the duration of time the declaration that Maryellen Disclaimer circumstances exist justifying the authorization of Maryellen Disclaimer the emergency use of in vitro diagnostic tests for Maryellen Disclaimer detection of SARS-CoV-2 virus and/or diagnosis of Maryellen Disclaimer COVID-19 infection under section 564(b)(1) of the Maryellen Disclaimer Act, 21 U.S.C. 360bbb-3(b)(1), unless the Maryellen Disclaimer authorization is terminated or revoked sooner. PERFORMED BY: [place] [address] PATHOLOGIST CRYSTAL ATTACHER DAVID THOMAS M.D. Normal [facility] Comment on above: Performed By: #### S OFIAPOS, COVID-19 MARYELLEN #### [facility] [address] [place] [address] Maryellen Ag Positiveon 06-26-19 21 Maryellen Ag Positive Positive Normal Negative [facility] Comment on above: Result Comment: This is a duplicate Maryellen SARS Antigen (ZARINA) result to be used for statistical tracking purpose only. PERFORMED BY: [place] [address] PATHOLOGIST CRYSTAL ATTACHER DAVID THOMAS M.D. Performed By: #### S OFIAPOS, COVID-19 MARYELLEN #### [facility] [address] [place] [address] Reminderson 01-10-2019 Reminders - From: Venkatesh Rodas MD To: King Lawson; Sent: 01/10/2019 10:21:54 EDT Show up: 01/10/2019 10:22:00 EDT Subject: Colonoscopy reminder Reminder/Recall Repeat colonoscopy in 5 years Normal [facility] Coding Summary.on 12-17-2018 Coding Summary. CODING DATE: 019 FINAL [facility] STATUS: Home (Routine DC) PAYOR: Medicaid [facility] DESCRIPTION 0081 ECHOCARDIOGRAPHY ADMIT DX: REASON FOR VISIT DX: Z01.818 Encounter for other preprocedural examination FINAL DX: PRINCIPAL: Z01.818 Encounter for other preprocedural examination SECONDARY: R63.5 Abnormal weight gain G47.30 Sleep apnea, unspecified G47.10 Hypersomnia, unspecified R53.83 Other fatigue E66.01 Morbid (severe) obesity due to excess calories Z68.43 Body mass index (BMI) 50-59.9, adult R94.31 Abnormal electrocardiogram [ECG] [EKG] PYMT PROC EAPG STAT DESCRIPTION DOCTOR NAME DATE NOTE: The code number assigned matches the documented diagnosis and / or procedure in the patient's chart. However, the narrative phrase printed from the coding software may appear abbreviated, or result in slightly different terminology. Coded By: Brandi Chowdhury CphT Date Saved: 12/17/2018 07:41 am Normal [facility] Echo Transthoracic Completeo n 12-17-2018 Echo Transthoracic Complete Echocardiology Procedure Exam Date/Time Accession # Ordering Echo Transthoracic 12/16/2018 16:00 EDT [id number] GLENDY OSORIO, STELLA Complete CPT code 98278 Reason for Exam (Echo Transthoracic Complete) ABNORMAL, PRE OP TESTING Report Patient Height: 64 Patient Weight: 294# Blood Pressure: 146/99 1. LVIDd m(3.8-5.8cm)w(3.8-5.2cm) 5.1 cm 2. LVIDs m(2.1-3.9cm)w(2.2-3.5cm) 3.9 cm 3. IVSd m(0.6-1.0cm) 1.3 cm 4. LVPWd (0.6-1.0cm) 1.2 cm 5. LAs (2.7-4.0cm) 3.8 cm 6. LA Vol. Index (16-34 mL/m2) 23 mL/m2 7. AOd Root (3.0-3.4cm) 3.1 cm 8. AO Annulus (2.3-2.6cm) _ cm 9. AO Sinus of Valsalva (3.0-3.4cm) _ cm 10. AO Sinotubular Junction (2.6-2.9cm) _ cm 11. Ascending Aorta (2.7-3.0cm) 2.8 cm 12. RVIDd (2.0-3.0cm) 2.9 cm 13. AoV Peak Gradient _ mmHg 14. AoV Mean Gradient _ mmHg 15. LVOT Diam _ cm INDICATION : Preoperative risk assessment. PROCEDURE : The study is a two-dimensional, M-mode, color flow, complete Doppler study. M-MODE/2D/DOPPLER REPORT : Study quality: Technical quality is technically suboptimal. Left ventricle: Left ventricle is poorly visualized. Left ventricular size is within normal limits. Left ventricular wall thickness shows a mild concentric left ventricular hypertrophy. Left ventricular systolic function does appear normal. Estimated LVEF of 60-65%. Left ventricular wall motion that is visualized appears normal. Right ventricle: The right ventricle appears normal dimension and normal systolic function. Left atrium: Left atrial size is within normal limits. Right atrium: Right atrium appears mildly dilated. Echocardiology Procedure Exam Date/Time Accession # Ordering Echo Transthoracic 12/16/2018 16:00 EDT [id number] STELLA PIKE MD Complete Report Mitral valve: Mitral valve is poorly visualized. Mitral valve shows no regurgitation. There is trace mitral regurgitation. Mitral valve inflow pattern appears normal. Aortic valve: Aortic valve is poorly visualized. Aortic valve shows no insufficiency. No aortic valve stenosis is suspected. Tricuspid valve: The tricuspid valve is poorly visualized. No tricuspid regurgitation is noted. Pulmonic valve: The pulmonic valve is poorly visualized. No pulmonic valve stenosis is suspected. Pericardium: Pericardial space is free of fluid accumulation. Aorta: Aortic root diameter is within normal limits. Tubular ascending aortic diameter is within normal limits. IMPRESSION/SUMMARY : 1. Technically very difficult study. 2. Preserved left ventricular systolic function, left ventricular ejection fraction of 60-65%. FINAL REPORT Signed (Electronic Signature): 12/17/2018 9:12 am Signed by: Harry Heaton MD Transcribed by: kandi Technologist: YAMILET Coronel [facility] Coding Summary.on 10-21-2018 Coding Summary. CODING DATE: 019 FINAL [facility] DSC STATUS: Home (Routine DC) PAYOR: Medicaid EA DESCRIPTION 0457 VENIPUNCTURE 0395 LEVEL II IMMUNOLOGY TESTS 0490 INCIDENTAL TO MEDICAL, SIGNIFICANT PROCEDURE OR THERAPY VISIT 0496 MINOR PHARMACOTHERAPY 0390 LEVEL I PATHOLOGY 0134 DIAGNOSTIC UPPER GI ENDOSCOPY OR INTUBATION 0137 THERAPEUTIC COLONOSCOPY 0380 ANESTHESIA ADMIT DX: REASON FOR VISIT DX: Z01.818 Encounter for other preprocedural examination FINAL DX: PRINCIPAL: Z01.818 Encounter for other preprocedural examination SECONDARY: K25.9 Gastric ulcer, unspecified as acute or chronic, without hemorrhage or perforation K20.8 Other esophagitis K26.9 Duodenal ulcer, unspecified as acute or chronic, without hemorrhage or perforation K29.80 Duodenitis without bleeding Z12.11 Encounter for screening for malignant neoplasm of colon K63.5 Polyp of colon K62.1 Rectal polyp K64.4 Residual hemorrhoidal skin tags K64.8 Other hemorrhoids Z80.0 Family history of malignant neoplasm of digestive organs E66.01 Morbid (severe) obesity due to excess calories Z87.891 Personal history of nicotine dependence G47.30 Sleep apnea, unspecified PYMT PROC EAPG STAT DESCRIPTION DOCTOR NAME DATE 80324 0134 Gerry Cueva MD, [facility] 10/18/2018 phagogastroduodenoscopy, flexible, transoral; with biopsy, single or multiple 83574 0137 Colonoscopy, flexible; Gerry Cueva MD, [facility] 10/18/2018 with removal of tumor(s), polyp(s), or other lesion(s) by snare technique PT Colorectal cancer screening test; converted to diagnostic test or other procedure 23740 0137 Colonoscopy, flexible; Gerry Cueva MD, [facility] 10/18/2018 with directed submucosal injection(s), any substance PT Colorectal cancer screening test; converted to diagnostic test or other procedure 86312 Anesthesia for combined Mal Brock Jr, DO 10/18/2018 upper and lower gastrointestinal endoscopic procedures, endoscope introduced both proximal to and distal to the duodenum NOTE: The code number assigned matches the documented diagnosis and / or procedure in the patient's chart. However, the narrative phrase printed from the coding software may appear abbreviated, or result in slightly different terminology. Revised Coded By: Alexandra Franz Revised Date Saved: 10/21/2018 10:48 am Normal [facility] H. Pylori, IgG Abon 10-21-19 19 H. pylori IgG IA Qn (S) 0.24 {index_val} 0.00-0.79 [facility] Comment on above: Result Comment: Nega tive <0.80 Equivocal 0.80 - 0.89 Positive >0.89 Performed at: [address] [id number] PhD Hyacinth Samayoa Performed By: #### 1 [id number] #### Way [facility] [address] [place] [address] Progress Note-Physicianon Progress Note-Physician Patient: JESSICA DILLARD Age: 53 years Sex: Female : 1965 Associated Diagnoses: None Author: Mal Brock Jr, DO Preoperative Information Anesthesia Preop Information NPO 8 HOURS EXCEPT GI PREP AT LEAST 4 HOURS PRIOR TO PROCEDURE Anesthesia history: Patient history: No prior anesthesia problems. Re-evaluation prior to induction: Initial evaluation reviewed: No significant change. Anesthesia results Review of Systems Cardiovascular: Negative. Respiratory: Negative. Health Status Allergies: Allergic Reactions (Selected) No Known Allergies Current medications: (Selected) Prescriptions Prescribed Suprep Bowel Prep Kit oral liquid: 177 mL, Oral, As Directed, 1 kit(s), Refill(s) 0, TARAN, dilute each 177 ml bottle and drink according to box directions or as directed by physician, [id number] Documented Medications Documented Motrin IB: 800 mg, Oral, q6hr, Refills(s) 0, Inflammation metformin: 500 mg, Oral, BID, Refills(s) 0, Blood glucose, Home Medications (3) Active metformin 500 mg, Oral, BID Motrin IB 800 mg, Oral, q6hr Suprep Bowel Prep Kit oral liquid 177 mL, Oral, As Directed Problem list: All Problems Arthritis / SNOMED CT 4886125 / Confirmed Obesity / SNOMED CT 2831450457 / Confirmed Sleep apnea / SNOMED CT 871305749 / Confirmed Resolved: Bronchitis / SNOMED CT 75431030 Resolved: Pneumonia / SNOMED CT 527388314 Histories Past Medical History: Resolved Bronchitis (57099139): Resolved. Pneumonia (433223830): Resolved. Social History Social & Psychosocial Habits Alcohol Comment: 4-5 once a week - 09/30/2018 15:01 - [place] CMA Exercise 09/30/2018 Risk Assessment: Does not exercise Other 09/30/2018 Name: Coffee-2 cups daily Substance Abuse Comment: denies - 09/30/2018 15:01 - [place] CMA Tobacco 09/30/2018 Tobacco Use: Former smoker, quit more Smokeless tobacco use: Never Type: Cigarettes. Physical Examination Airway: Mallampati classification: II (soft palate, fauces, uvula visible). Respiratory: Lungs are clear to auscultation. Cardiovascular: Regular rhythm. Neurologic: Alert, Oriented. Plan [place] [employer]esthesi[employer] (ASA) physical status classification: Class III. Anesthetic Preoperative Plan Anesthesia: General. . Anesthetic plan, risks, benefits, and alternatives discussed with the patient and/or family. Communication: face to face with (patient 5 minutes, Patient educated on smoking cesstation). Normal [facility] Comment on above: Result Comment: Elec tronically Signed By: Mal Brock Jr, DO\.br\Date and Time Signed: 10/20/18 12:29 EDT Main OR Intraoperative Recor don 10-19-2018 Main OR Intraoperative Record IntraOp Document Type FT Summary Primary Physician: Venkatesh Rodas MD Finalized Date/Time: 10/19/18 06:40:45 Pt. Name: JESSICA DILLARD /Sex: 1965 Female Med Rec #: [id number] Physician: Venkatesh Rodas MD Financial #: [id number] Pt. Type: O Room/Bed: / Admit/Disch: 10/18/18 13:57:34 - 10/18/18 23:59:59 Institution: Case Times FT Entry 1 Patient Times In Room 10/18/18 14:35:00 Out Room 10/18/18 15:18:00 Procedure Times Start 10/18/18 14:39:00 Stop 10/18/18 15:14:00 Anesthesia Times Start 10/18/18 14:35:00 Stop 10/18/18 15:18:00 Time at [place] 10/18/18 14:58:00 Last Modified By: Milka Núñez CST 10/18/18 15:18:09 General Comments: 14:45 EGD finished. THERESA RN 14:50 Colonoscopy started.--------THERESA RN 10/19/18 Chart opened to review and send charges Iris Núñez CST Case Attendance FT Entry 1 Entry 2 Entry 3 Case Attendee Mal Brock Jr, DO RN, Fransisca Gregory Role Performed Anesthesiologist of Machine Washer - Primary Scrub - Primary Record Time In 10/18/18 14:35:00 10/18/18 14:35:00 10/18/18 14:35:00 Time Out 10/18/18 15:18:00 10/18/18 15:18:00 10/18/18 15:18:00 Procedure EGD AND COLONOSCOPY(.) EGD AND COLONOSCOPY(.) EGD AND COLONOSCOPY(.) Comments EGD Last Modified By: Jess RN, Donna Mercado RN, Donna Mercado RN, Donna 10/18/18 15:18:11 10/18/18 15:18:11 10/18/18 15:18:11 Entry 4 Entry 5 Case Attendee Gerry Cueva MD, Pradip CST/SA, Malika Riddle Role Performed Surgeon - Primary Scrub - Primary Time In 10/18/18 14:35:00 10/18/18 14:35:00 Time Out 10/18/18 15:18:00 10/18/18 15:18:00 Procedure EGD AND COLONOSCOPY(.) EGD AND COLONOSCOPY(.) Comments Colonoscopy Last Modified By: Jess MEDRANO, Donna Mercado RN, Donna 10/18/18 15:18:11 10/18/18 15:18:11 Perioperative Protocols FT Pre-Care Text: Implements protective measures prior to operative or invasive procedure, confirms identity before the operative or invasive procedure, verifies operative procedure, surgical site, and laterality Entry 1 Procedure(s) EGD AND COLONOSCOPY(.) Patient Identity Birthday, ID Band Verified (select at Check, Patient least 2): Participation Consents / H and P Anesthesia Consent, Operative Site N/A Verified HandP, Surgery/Procedure Marking Verified Consent Surgical Site Yes Laterality Verified n/a Verified Procedure Verified Yes Correct Patient Yes Position Verified Availability Equipment, Medication Prep Dry n/a Verified (If Applicable) PreOp Antibiotic No Time Out Vinod Macedo DO, Mal Hogan, Given Participants Jess MEDRANO, Oneil Thompson Kirstyn K, Abdal Raheem MD, Venkatesh Time Out Complete 10/18/18 14:38:00 Outcomes Met? Yes Last Modified By: Donna Mercado RN 10/18/18 14:39:48 Post-Care Text: The patient is free from signs and symptoms of injury caused by extraneous objects Allergy Information FT Pre-Care Text: Verifies allergies Entry 1 Allergies Reviewed? Yes Allergies Reviewed Self/Patient With Outcomes Met? Yes Last Modified By: Donna Mercado RN 10/18/18 14:39:24 Post-Care Text: The patient received appropriate medication(s) safely administered during the perioperative period Surgical Procedures FT Entry 1 Procedure Description Procedure EGD AND COLONOSCOPY Modifiers . Surgeon Description EGD with antral ulcer bx; Colonoscopy with sigmoid polypectomy lifting, hot snare, hemoclip x1, rectal-sigmoid polypectomy lifting,hot snare; rectal polypectomy hot snare, ablation of rectal polyps x3 Primary Procedure Yes Primary Surgeon Rena Rodas MDprentice Start 10/18/18 14:39:00 Stop 10/18/18 15:14:00 Anesthesia Type General Surgical Service Gastroenterology Wound Class 2 - Clean-Contaminated Last Modified By: Donna Mercado RN 10/18/18 15:14:26 General Case Data FT Pre-Care Text: Classifies surgical wound, implements aseptic technique, initiates traffic control Entry 1 Case Information OR ENDO 1 FT Case Level Level 2 Wound Class 2 - Clean-Contaminated Specialty Gastroenterology ASA Class 3 Preop Diagnosis PRE-OP FOR SLEEVE Postop Same As Preop No GASTRECOMY , SCREENING COLON Postop Diagnosis Antral ulcer, Outcomes Met? Yes duodinitis, multiple superifical ulcers noted, LA grade B esophagitis, small external hemorrhoids with skin tags, sigmoid polyp, rectal-sigmoid polyp, rectal polyps x4 (one retrieve, 3 ablated) Last Modified By: Donna Meracdo RN 10/18/18 15:14:15 Post-Care Text: The patient is free from signs and symptoms of infection Skin Assessment (Pre Procedure) FT Pre-Care Text: Implements protective measures to prevent skin/ tissue injury due to thermal or mechanical sources Evaluates for signs and symptoms of physical injury to skin and tissue Entry 1 Skin Integrity Intact, [place], Warm, and Skin Abnormality No Dry Outcomes Met? Yes Last Modified By: Donna Mercado RN 10/18/18 14:40:16 Post-Care Text: The patient is free from signs and symptoms of injury caused by extraneous objects Patient Positioning FT Pre-Care Text: Identifies physical alterations that require additional precautions for procedure-specific positioning, verifies presence of prosthetics or corrective devices, positions the patient, evaluates the patient for signs and symptoms of injury as a result of positioning Entry 1 Procedure EGD AND COLONOSCOPY(.) Body Position Lateral, right side up Feet Uncrossed? Yes Left Arm Position Resting at Side Right Arm Position Resting at Side Left Leg Position Extended Right Leg Position Extended Positioning Device Safety Strap, Pillow Under Head Large Press Points Checked Yes By Donna Mercado RN, Donna Mercado RN Outcomes Met? Yes Last Modified By: Donna Mercado RN 10/18/18 06:59:56 Post-Care Text: The patient is free from signs and symptoms of injury related to positioning Patient Care Devices FT Pre-Care Text: Implements protective measures to prevent skin/ tissue injury due to thermal or mechanical sources Entry 1 Entry 2 Entry 3 Equipment Type ENDOSCOPY VIDEO MONITOR CHARGE SURGERY CAUTERY ERBE UNIT [F] SYSTEM[F] [F] Equipment Number [id number] Equipment Setting Outcomes Met? Yes Yes Yes Last Modified By: Jess MEDRANO, Donna Mercado RN, Donna Britt RN 10/18/18 06:59:47 10/18/18 06:59:47 10/18/18 14:55:25 Post-Care Text: The patient is free from signs and symptoms of injury caused by extraneous objects Transport To OR FT Pre-Care Text: Transports according to individual needs. Evaluates for signs and symptoms of skin and tissue injury as a result of transfer or transport Entry 1 Via Cart By Donna Mercado RN Safety Precautions Side Rails Up Outcomes Met? Yes Last Modified By: oDnna Mercado RN 10/18/18 06:59:33 Post-Care Text: The patient is free from signs and symptoms of injury related to transfer/transport Cautery FT Pre-Care Text: Implements protective measures to prevent injury due to electrical sources, and evaluates for signs and symptoms of electrical injury Entry 1 ESU Identification ESU Type CAUTERY ERBE UNIT [F] Equipment Number e1 ESU Settings ESU Grounding Pad Site Right Thigh Pre Pad Site Clear and Intact Condition Post Pad Site Clear and Intact Grounding Pad Donna Mercado RN Condition Placed By Outcomes Met? Yes Last Modified By: Donna Mercado RN 10/18/18 14:55:11 Post-Care Text: The patient if free from signs and symptoms of electrical injury General Comments: Heat settings per ERBE snare/hot bx. HB RN Departure From OR FT Pre-Care Text: Transports according to individual needs. Evaluates for signs and symptoms of skin and tissue injury as a result of transfer or transport. Entry 1 Via Cart Safety Precautions Safety Strap, Side Rails Up PostOp Destination PACU Transported By Donna Mercado RN Patient Status Stable Skin. Condition Intact, [place], Warm, and Dry Airway Maintenance Oxygen in Use? No Outcomes Met? Yes Last Modified By: Donna Mercado RN 10/18/18 06:59:29 Post-Care Text: The patient is free from signs and symptoms of injury related to transfer/transport General Comments: Report given to pacu nurse. THERESA wrinkle chaser Administration FT Pre-Care Text: Verifies allergies, administers prescribed medications and solutions, administers prescribed antibiotic therapy and immunizing agents as ordered, evaluates response to medications Administers prescribed medications and solutions Entry 1 Expiration Date Yes Outcomes Met? Yes Verified Last Modified By: Donna Mercado RN 10/18/18 06:59:24 Post-Care Text: The patient received appropriate medication(s) safely administered during the perioperative period For [facility] please see scanned medication reconcilliation form for medications used at the field during the procedure. Cultures and Specimens FT Pre-Care Text: Manages specimen handling and disposition Manages culture specimen collection Entry 1 Cultures Ordered n/a Specimens Ordered Yes Specimen Disposition Designated OR Area Frozen Section Times Outcomes Met? Yes Last Modified By: Donna Mercado RN 10/18/18 14:43:16 Post-Care Text: The patient is free from signs and symptoms of injury caused by extraneous objects The patient is free from signs and symptoms of infection Case Comments Finalized By: Milka Núeñz CST Document Signatures Signed By: Donna Mercado RN 10/18/18 15:18 Donna Mercado RN 10/18/18 15:18 Milka Núñez CST 10/19/18 06:40 Normal [facility] Inpatient Patient Summaryon 10-18-2018 Inpatient Patient Summary [facility] Clinical Discharge Instructions PERSON INFORMATION Name: JESSICA DILLARD [facility]#:[id number] PHYSICIANS Admitting Physician: Venkatesh Rodas MD Attending Physician: Venkatesh Rodas MD PCP: Jose OSORIO, Yaneth Discharge Diagnosis: Comment: PATIENT EDUCATION INFORMATION Instructions: Colonoscopy, Care After Surgery Salam (CUSTOM); Hemorrhoids; Colon Polyps; Esophagogastroduodenoscopy, Care After; Peptic Ulcer Disease; [facility]-Nonsteroidal Anti-Inflammatory Medications (CUSTOM); Esophagitis; Duodenitis Medication Leaflets: Follow up: With: Address: When: Venkatesh Cueva [address] [place] [address] Business (1) 12/16/2018 3:30 PM Type Location [facility] Follow Up [facility] 12/16/2018 3:30 PM 12/16/2018 3:45 PM Confirmed MEDICATION LIST Comment: [facility] Main OR PACU I [facility] Main OR PACU I Record PACU Phase I Document Type FT Summary Primary Physician: Venkatesh Rodas MD Finalized Date/Time: 10/18/18 16:37:42 Pt. Name: JESSICA DILLARD/Sex: 1965 Female Med Rec #: [id number] Physician: Venkatesh Rodas MD Financial #: [id number] Pt. Type: O Room/Bed: / Admit/Disch: 10/18/18 13:57:34 - Institution: Case Times PACU I FT Pre-Care Text: Identifies barriers to communication and implements measures to provide psychological support Develops individualized plan of care, and ensures continuity of care Maintains patient's dignity and privacy, and maintains patient confidentiality Identifies and reports philosophical, cultural, and spiritual beliefs and values Identifies individual values and wishes concerning care Implements aseptic technique, and administers prescribed antibiotic therapy and immunizing agents as ordered Evaluates postoperative tissue perfusion Implements thermoregulation measures, and monitors body temperature Evaluates postoperative respiratory status Evaluates postoperative cardiac status Evaluates postoperative neurological status Assesses pain control, collaborated in initiating patient-controlled analgesia and implements alternative methods of pain control Verifies allergies, administers prescribed medications and solutions, evaluates response to medications Entry 1 In PACU I 10/18/18 15:18:00 Discharge from PACU 10/18/18 16:08:00 I Outcomes Met? Yes Last Modified By: Melissa Brown RN 10/18/18 16:34:55 Post-Care Text: The patient demonstrates knowledge of the expected response to the operative or invasive procedure The patient's care is consistent with the individualized perioperative plan of care The patient's right to privacy is maintained The patient's value system, lifestyle, ethnicity, and culture are considered, respected, and incorporated into the perioperative plan of care The patient participates in decisions affecting his or her perioperative plan of care The patient is free from signs and symptoms of infection The patient has wound/tissue perfusion consistent with or improved from baseline levels established preoperatively The patient is at or returning to normothermia at the conclusion of the immediate postoperative period The patient's respiratory function is consistent with or improved from baseline levels established preoperatively The patient's cardiovascular status is consistent with or improved from baseline levels established preoperatively The patient's cardiovascular status is consistent with or improved from baseline levels established preoperatively The patient demonstrates and/or reports adequate pain control throughout the perioperative period The patient received appropriate medication(s), safely administered during the perioperative period Acuity Level PACU I FT Entry 1 Start Time 10/18/18 15:18:00 Stop Time 10/18/18 16:08:00 Acuity Level Acuity Level I Last Modified By: Melissa Brown RN 10/18/18 16:35:18 Finalized By: Melissa Brown RN Document Signatures Signed By: Melissa Brown RN 10/18/18 16:35 Melissa Brown RN 10/18/18 16:37 Normal [facility] Main OR Preoperative Recordo n 10-18-2018 Main OR Preoperative Record Holding Area Document Type FT Summary Primary Physician: Venkatesh Rodas MD Finalized Date/Time: 10/18/18 14:25:35 Pt. Name: JESSICA DILLARD/Sex: 1965 Female Med Rec #: [id number] Physician: Venkatesh Rodas MD Financial #: [id number] Pt. Type: O Room/Bed: / Admit/Disch: 10/18/18 13:57:34 - Institution: Case Times Holding FT Pre-Care Text: Verifies consent for planned procedure, identifies individual values and wishes concerning care, includes family members in perioperative teaching Secures patient's records' belongings, and valuables, maintains patient's dignity and privacy, and maintains patient confidentiality Entry 1 In Holding 10/18/18 14:00:00 Outcomes Met? Yes Last Modified By: Kavya Arango RN 10/18/18 14:06:40 Post-Care Text: The patient participates in decisions affecting his or her perioperative plan of care The patient's right to privacy is maintained Surgery Checklist FT Entry 1 Patient Birthday, ID Band Procedure History and Physical, Identification: Check, Patient Verification: Surgical Consent, With Participation Patient NPO after Midnight: Yes Results Reviewed n/a Comments: Personal Items: Dentures, Jewelry Personal Items L hip replaced, ring x1 Comment: and upper denture Complaints of Pain: Yes Pain Comment: 05/23 R leg pain Operative Site n/a Availability Equipment Marking: Verified: Does Patient Smoke Yes If Yes to Smoking. E-cigarettes Cigars or Cigarettes. How much per day? Patient states Yes Comment - Adult Sister postop adult Supervision supervision available Case Cancelled in No Holding Area see comments below for reason Last Modified By: Kavya Aranog RN 10/18/18 14:21:59 General Comments: Pt completed prep at 1000 and remained NPO since/TED,RN Finalized By: Kavya Arango RN Document Signatures Signed By: Kavya Arango RN 10/18/18 14:25 Normal [facility] Patient Education - Texton 0 10-18-2018 Patient Education - Text Colonoscopy Care After Surgery Please read the instructions outlined below and refer to this sheet in the next few weeks. These discharge instructions provide you with general information on caring for yourself after you leave the hospital. Your doctor may also give you specific instructions. While your treatment has been planned according to the most current medical practices available, unavoidable complications occasionally occur. If you have any problems or questions after discharge, please call your doctor. ACTIVITY You may resume your regular activity, but move at a slower pace for the next 24 hours. Take frequent rest periods for the next 24 hours. Walking will help get rid of the air and reduce the bloated feeling in your abdomen (belly). No driving for 24 hours (because of the anesthesia (medicine) used during the test). You may shower. Do not sign any important legal documents or operate any machinery for 24 hours (because of the anesthesia used during the test). NUTRITION Drink plenty of fluids. You may resume your normal diet as instructed by your doctor. Begin with a light meal and progress to your normal diet. Heavy or fried foods are harder to digest and may make you feel nauseated (sick to your stomach). Avoid alcoholic beverages for 24 hours or as instructed. MEDICATIONS You may resume your normal medications unless your doctor tells you otherwise. WHAT YOU CAN EXPECT TODAY Some feelings of bloating in the abdomen. Passage of more gas than usual. Spotting of blood in your stool or on the toilet paper. FOLLOW-UP Your doctor will discuss the results of your test with you. SEEK IMMEDIATE MEDICAL ATTENTION IF: There is more than a spotting of blood in your stool. There is abdominal distention (your abdomen is swollen). There is vomiting. You have a temperature over 101.5 F. There is abdominal pain or discomfort that is severe or gets worse throughout the day. Peptic Ulcer A peptic ulcer is a sore in the lining of your esophagus (esophageal ulcer), stomach (gastric ulcer), or in the first part of your small intestine (duodenal ulcer). The ulcer causes erosion into the deeper tissue. CAUSES Normally, the lining of the stomach and the small intestine protects itself from the acid that digests food. The protective lining can be damaged by: ? An infection caused by a bacterium called Helicobacter pylori (H. pylori). ? Regular use of nonsteroidal anti-inflammatory drugs (NSAIDs), such as ibuprofen or aspirin. ? Smoking tobacco. Other risk factors include being older than 50, drinking alcohol excessively, and having a family history of ulcer disease. SYMPTOMS ? Burning pain or gnawing in the area between the chest and the belly button. ? Heartburn. ? Nausea and vomiting. ? Bloating. The pain can be worse on an empty stomach and at night. If the ulcer results in bleeding, it can cause: ? Black, tarry stools. ? Vomiting of bright red blood. ? Vomiting of ojjupa-jckzqc-uepnxqu materials. DIAGNOSIS A diagnosis is usually made based upon your history and an exam. Other tests and procedures may be performed to find the cause of the ulcer. Finding a cause will help determine the best treatment. Tests and procedures may include: ? Blood tests, stool tests, or breath tests to check for the bacterium H. pylori. ? An upper gastrointestinal (GI) series of the esophagus, stomach, and small intestine. ? An endoscopy to examine the esophagus, stomach, and small intestine. ? A biopsy. TREATMENT Treatment may include: ? Eliminating the cause of the ulcer, such as smoking, NSAIDs, or alcohol. ? Medicines to reduce the amount of acid in your digestive tract. ? Antibiotic medicines if the ulcer is caused by the H. pylori bacterium. ? An upper endoscopy to treat a bleeding ulcer. ? Surgery if the bleeding is severe or if the ulcer created a hole somewhere in the digestive system. HOME CARE INSTRUCTIONS ? Avoid tobacco, alcohol, and caffeine. Smoking can increase the acid in the stomach, and continued smoking will impair the healing of ulcers. ? Avoid foods and drinks that seem to cause discomfort or aggravate your ulcer. ? Only take medicines as directed by your caregiver. Do not substitute hspt-mwt-gtcmvtg medicines for prescription medicines without talking to your caregiver. ? Keep any follow-up appointments and tests as directed. SEEK MEDICAL CARE IF: ? Your do not improve within 7 days of starting treatment. ? You have ongoing indigestion or heartburn. SEEK IMMEDIATE MEDICAL CARE IF: ? You have sudden, sharp, or persistent abdominal pain. ? You have bloody or dark black, tarry stools. ? You vomit blood or vomit that looks like coffee grounds. ? You become light-headed, weak, or feel faint. ? You become sweaty or clammy. MAKE SURE YOU: ? Understand these instructions. ? Will watch your condition. ? Will get help right away if you are not doing well or get worse. Document Released: 03/27/2001 Document Revised: 08/14/2014 Document Reviewed: 10/27/2012 ExitCare? Patient Information ?2015 [employer]. This information is not intended to replace advice given to you by your health care provider. Make sure you discuss any questions you have with your health care provider. AVOID! Nonsteroidal Anti-Inflammatory Medications (NSAIDS) Non-steroidal anti-inflammatory drugs (NSAIDs) are a medication widely used to treat a wide range of conditions. Common acute (short-term) conditions that can be treated with NSAIDs include: ? headaches ? painful periods ? toothache ? soft tissue injuries such as sprains and strains ? reduce inflammation (redness and swelling) ? infections, such as the common cold or the flu (NSAIDs do not treat the underlying infections, but can help to relieve symptoms; especially fever) Common chronic (long-term) conditions that can be treated with NSAIDs include: ? most types of arthritis, including rheumatoid arthritis and osteoarthritis ? back pain ? neck pain Some NSAIDs are available otez-vfa-qwnrrjz, without the need for a prescription. However, because a medication is available over the counter it does not mean it is safe or suitable for everyone. Again, it is important to read the patient information leaflet that comes with your medication. NSAID drugs include: Brand: Generic: Bufferin; Colt Aspirin; ASA Celebrex Celecoxib Zipsor; Cambia Diclofenac Motrin; Advil Ibuprofen Indosin Indometacin Actron; Orudis Ketoprofen Toradol Ketorolac Mobic Meloxicam Ponstel Mefenamic Acid Aleve; Naprosyn Naproxen Side effects: Most people take NSAIDs without having any side effects. Short term use is unlikely to cause significant problems, especially in younger patients. If side effects do occur they usually affect the stomach and can include: ? Indigestion ? Nausea ? Stomach pain ? Stomach ulcer ? Bleeding from the stomach and intestines Other side effects: ? Ringing in the ears ? itching ? Poor control of asthma ? Headache ? Allergic reactions NSAIDs are also not usually recommended for people who: ? are or ? have a history of kidney disease ? have a history of liver disease ? have active stomach ulcers (a sore in the lining of the stomach), or are at risk of developing stomach ulcers How to take NSAIDS: NSAIDS should be taken in the pill form or given by injection. If you are taking the pill form, it is best to take with food to avoid an upset stomach. IF a dose is missed: Some of these medications are taken ?as needed.? Do not take more of your NSAID than your doctor has prescribed. Follow the tvyw-gcg-nvdopbl labels and do not exceed the recommended dosage. If you take an NSAID daily, take the missed dose of your medication as soon as you remember it. If it is too close to the time for your next dose, skip the missed dose and go back to taking this medication at your normal time. Do not take two doses of this medication at the same time or take any extra doses of this medication. If any questions regarding your medications, contact your physician or pharmacist. Family Medicine Colon Polyps Polyps are lumps of extra tissue growing inside the body. Polyps can grow in the large intestine (colon). Most colon polyps are noncancerous (benign). However, some colon polyps can become cancerous over time. Polyps that are larger than a pea may be harmful. To be safe, caregivers remove and test all polyps. CAUSES Polyps form when mutations in the genes cause your cells to grow and divide even though no more tissue is needed. RISK FACTORS There are a number of risk factors that can increase your chances of getting colon polyps. They include: ? Being older than 50 years. ? Family history of colon polyps or colon cancer. ? Long-term colon diseases, such as colitis or Crohn disease. ? Being overweight. ? Smoking. ? Being inactive. ? Drinking too much alcohol. SYMPTOMS Most small polyps do not cause symptoms. If symptoms are present, they may include: ? Blood in the stool. The stool may look dark red or black. ? Constipation or diarrhea that lasts longer than 1 week. DIAGNOSIS People often do not know they have polyps until their caregiver finds them during a regular checkup. Your caregiver can use 4 tests to check for polyps: ? Digital rectal exam. The caregiver wears gloves and feels inside the rectum. This test would find polyps only in the rectum. ? Barium enema. The caregiver puts a liquid called barium into your rectum before taking X-rays of your colon. Barium makes your colon look white. Polyps are dark, so they are easy to see in the X-ray pictures. ? Sigmoidoscopy. A thin, flexible tube (sigmoidoscope) is placed into your rectum. The sigmoidoscope has a light and tiny camera in it. The caregiver uses the sigmoidoscope to look at the last third of your colon. ? Colonoscopy. This test is like sigmoidoscopy, but the caregiver looks at the entire colon. This is the most common method for finding and removing polyps. TREATMENT Any polyps will be removed during a sigmoidoscopy or colonoscopy. The polyps are then tested for cancer. PREVENTION To help lower your risk of getting more colon polyps: ? Eat plenty of fruits and vegetables. Avoid eating fatty foods. ? Do not smoke. ? Avoid drinking alcohol. ? Exercise every day. ? Lose weight if recommended by your caregiver. ? Eat plenty of calcium and folate. Foods that are rich in calcium include milk, cheese, and broccoli. Foods that are rich in folate include chickpeas, kidney beans, and spinach. HOME CARE INSTRUCTIONS Keep all follow-up appointments as directed by your caregiver. You may need periodic exams to check for polyps. SEEK MEDICAL CARE IF: You notice bleeding during a bowel movement. Document Released: 12/24/2004 Document Revised: 06/21/2012 Document Reviewed: 06/08/2012 ExitCare? Patient Information ?2015 [employer]. This information is not intended to replace advice given to you by your health care provider. Make sure you discuss any questions you have with your health care provider. Esophagogastroduodenoscopy Care After Refer to this sheet in the next few weeks. These instructions provide you with information on caring for yourself after your procedure. Your caregiver may also give you more specific instructions. Your treatment has been planned according to current medical practices, but problems sometimes occur. Call your caregiver if you have any problems or questions after your procedure. HOME CARE INSTRUCTIONS ? Do not eat or drink anything until the numbing medicine (local anesthetic) has worn off and your gag reflex has returned. You will know that the local anesthetic has worn off when you can swallow comfortably. ? Do not drive as directed by your caregiver. ? Only take medicines as directed by your caregiver. SEEK MEDICAL CARE IF: ? You cannot stop coughing. ? You are not urinating at all or less than usual. SEEK IMMEDIATE MEDICAL CARE IF: ? You have difficulty swallowing. ? You cannot eat or drink. ? You have worsening throat or chest pain. ? You have dizziness, lightheadedness, or you faint. ? You have nausea or vomiting. ? You have chills. ? You have a fever. ? You have severe abdominal pain. ? You have black, tarry, or bloody stools. Document Released: 03/16/2013 Document Reviewed: 03/16/2013 ExitCare? Patient Information ?2015 [employer]. This information is not intended to replace advice given to you by your health care provider. Make sure you discuss any questions you have with your health care provider. Esophagitis Esophagitis is inflammation of the esophagus. It can involve swelling, soreness, and pain in the esophagus. This condition can make it difficult and painful to swallow. CAUSES Most causes of esophagitis are not serious. Many different factors can cause esophagitis, including: ? Gastroesophageal reflux disease (GERD). This is when acid from your stomach flows up into the esophagus. ? Recurrent vomiting. ? An allergic-type reaction. ? Certain medicines, especially those that come in large pills. ? Ingestion of harmful chemicals, such as household cleaning products. ? Heavy alcohol use. ? An infection of the esophagus. ? Radiation treatment for cancer. ? Certain diseases such as sarcoidosis, Crohn's disease, and scleroderma. These diseases may cause recurrent esophagitis. SYMPTOMS ? Trouble swallowing. ? Painful swallowing. ? Chest pain. ? Difficulty breathing. ? Nausea. ? Vomiting. ? Abdominal pain. DIAGNOSIS Your caregiver will take your history and do a physical exam. Depending upon what your caregiver finds, certain tests may also be done, including: ? Barium X-ray. You will drink a solution that coats the esophagus, and X-rays will be taken. ? Endoscopy. A lighted tube is put down the esophagus so your caregiver can examine the area. ? Allergy tests. These can sometimes be arranged through follow-up visits. TREATMENT Treatment will depend on the cause of your esophagitis. In some cases, steroids or other medicines may be given to help relieve your symptoms or to treat the underlying cause of your condition. Medicines that may be recommended include: ? Viscous lidocaine, to soothe the esophagus. ? Antacids. ? Acid reducers. ? Proton pump inhibitors. ? Antiviral medicines for certain viral infections of the esophagus. ? Antifungal medicines for certain fungal infections of the esophagus. ? Antibiotic medicines, depending on the cause of the esophagitis. HOME CARE INSTRUCTIONS ? Avoid foods and drinks that seem to make your symptoms worse. ? Eat small, frequent meals instead of large meals. ? Avoid eating for the 3 hours prior to your bedtime. ? If you have trouble taking pills, use a pill splitter to decrease the size and likelihood of the pill getting stuck or injuring the esophagus on the way down. Drinking water after taking a pill also helps. ? Stop smoking if you smoke. ? Maintain a healthy weight. ? Wear loose-fitting clothing. Do not wear anything tight around your waist that causes pressure on your stomach. ? Raise the head of your bed 6 to 8 inches with wood blocks to help you sleep. Extra pillows will not help. ? Only take obel-kva-hysxomd or prescription medicines as directed by your caregiver. SEEK IMMEDIATE MEDICAL CARE IF: ? You have severe chest pain that radiates into your arm, neck, or jaw. ? You feel sweaty, dizzy, or lightheaded. ? You have shortness of breath. ? You vomit blood. ? You have difficulty or pain with swallowing. ? You have bloody or black, tarry stools. ? You have a fever. ? You have a burning sensation in the chest more than 3 times a week for more than 2 weeks. ? You cannot swallow, drink, or eat. ? You drool because you cannot swallow your saliva. MAKE SURE YOU: ? Understand these instructions. ? Will watch your condition. ? Will get help right away if you are not doing well or get worse. Document Released: 05/07/2005 Document Revised: 06/21/2012 Document Reviewed: 11/28/2011 ExitCare? Patient Information ?2015 [employer]. This information is not intended to replace advice given to you by your health care provider. Make sure you discuss any questions you have with your health care provider. Duodenitis Duodenitis is inflammation of the lining of the first part of your small intestine (duodenum). There are two types of duodenitis: ? Acute duodenitis (develops suddenly and is short lived). ? Chronic duodenitis (develops over an extended period and lasts months to years). CAUSES Duodenitis is most often caused by infection with the bacterium Helicobacter pylori (H. pylori). H. pylori increases the production of stomach acid and causes changes in the environment of the duodenum. This irritates and damages the cells of the duodenum causing inflammation. Other causes of duodenitis include: ? Long-term use of nonsteroidal anti-inflammatory drugs (NSAIDs). NSAIDs change the lining of the duodenum and make it more prone to injury from stomach acid. ? Excessive use of alcohol. Alcohol increases stomach acid and changes the lining of the duodenum which makes it more likely for inflammation to develop. ? Giardiasis. Giardiasis is a common infection of the small intestine. It can cause inflammation of the duodenum. ? ? Other gastrointestinal disorders, such as Crohn disease. People with these disorders are more likely to develop duodenitis. SYMPTOMS Although duodenitis does not always cause symptoms, symptoms that do occur include: ? Nausea or vomiting. ? Gassy, bloated feeling or an uncomfortable feeling of fullness after eating. ? Burning, cramps, or pain in the upper abdominal area. DIAGNOSIS To diagnose duodenitis, your health care provider may use results from: ? An exam of the duodenum using a thin tube with a tiny camera on the tip, which is placed down your throat (endoscope). The endoscope is passed through your stomach and into your duodenum. Sometimes a sample of tissue from your duodenum is removed with the endoscope. The sample is then examined under a microscope (biopsy) for signs of inflammation and H. pylori infection. ? ? Tests that check samples of your blood or stool for H. pylori infection. ? ? A test that checks the gases in a sample of your breath for H. pylori infection. The test measures the levels of carbon dioxide in your breath after you drink a special solution. ? An X-ray exam using a special liquid that you swallow to illuminate your digestive tract (barium) to show signs of inflammation. TREATMENT Treatment will depend on the cause of the duodenitis. The most common treatments include: ? Use of medication to treat infection. ? Medication to reduce stomach acid. ? Discontinuing the use of NSAIDs. ? Management of other gastrointestinal conditions. ? Avoiding alcohol consumption. Additionally, taking the following steps can help to reduce the severity of your symptoms: ? Drink enough water to keep your urine clear or pale yellow. ? Avoid consuming these foods or drinks: ? Caffeinated drinks. ? Chocolate. ? Peppermint or mint-flavored food or drinks. ? Garlic. ? Onions. ? Spicy foods. ? [place] fruits, such as oranges, franky, or limes. ? Foods that use tomato-based sauces, such as pasta sauce, chili, salsa, and pizza. ? Fatty foods. ? Fried foods. Document Released: 07/25/2013 Document Revised: 08/14/2014 Document Reviewed: 07/25/2013 ExitCare? Patient Information ?2014 [employer]. This information is not intended to replace advice given to you by your health care provider. Make sure you discuss any questions you have with your health care provider. Obstetrics and Gynecology Hemorrhoids Hemorrhoids are swollen veins around the rectum or anus. There are two types of hemorrhoids: ? Internal hemorrhoids. These occur in the veins just inside the rectum. They may poke through to the outside and become irritated and painful. ? External hemorrhoids. These occur in the veins outside the anus and can be felt as a painful swelling or hard lump near the anus. CAUSES ? . ? ? Obesity. ? ? Constipation or diarrhea. ? ? Straining to have a bowel movement. ? ? Sitting for long periods on the toilet. ? Heavy lifting or other activity that caused you to strain. ? Anal intercourse. SYMPTOMS ? Pain. ? ? Anal itching or irritation. ? ? Rectal bleeding. ? ? Fecal leakage. ? ? Anal swelling. ? ? One or more lumps around the anus. ? DIAGNOSIS Your caregiver may be able to diagnose hemorrhoids by visual examination. Other examinations or tests that may be performed include: ? Examination of the rectal area with a gloved hand (digital rectal exam). ? ? Examination of anal canal using a small tube (scope). ? ? A blood test if you have lost a significant amount of blood. ? A test to look inside the colon (sigmoidoscopy or colonoscopy). TREATMENT Most hemorrhoids can be treated at home. However, if symptoms do not seem to be getting better or if you have a lot of rectal bleeding, your caregiver may perform a procedure to help make the hemorrhoids get smaller or remove them completely. Possible treatments include: ? Placing a rubber band at the base of the hemorrhoid to cut off the circulation (rubber band ligation). ? ? Injecting a chemical to shrink the hemorrhoid (sclerotherapy). ? ? Using a tool to burn the hemorrhoid (infrared light therapy). ? ? Surgically removing the hemorrhoid (hemorrhoidectomy). ? ? Stapling the hemorrhoid to block blood flow to the tissue (hemorrhoid stapling). ? HOME CARE INSTRUCTIONS ? Eat foods with fiber, such as whole grains, beans, nuts, fruits, and vegetables. Ask your doctor about taking products with added fiber in them (fiber?supplements). ? Increase fluid intake. Drink enough water and fluids to keep your urine clear or pale yellow. ? ? Exercise regularly. ? ? Go to the bathroom when you have the urge to have a bowel movement. Do not wait. ? ? Avoid straining to have bowel movements. ? ? Keep the anal area dry and clean. Use wet toilet paper or moist towelettes after a bowel movement. ? ? Medicated creams and suppositories may be used or applied as directed. ? ? Only take jhpw-wbi-zzgeako or prescription medicines as directed by your caregiver. ? ? Take warm sitz baths for 15?20 minutes, 3?4 times a day to ease pain and discomfort. ? ? Place ice packs on the hemorrhoids if they are tender and swollen. Using ice packs between sitz baths may be helpful. ? ? Put ice in a plastic bag. ? ? Place a towel between your skin and the bag. ? ? Leave the ice on for 15?20 minutes, 3?4 times a day. ? ? Do not use a donut-shaped pillow or sit on the toilet for long periods. This increases blood pooling and pain. ? SEEK MEDICAL CARE IF: ? You have increasing pain and swelling that is not controlled by treatment or medicine. ? You have uncontrolled bleeding. ? You have difficulty or you are unable to have a bowel movement. ? You have pain or inflammation outside the area of the hemorrhoids. MAKE SURE YOU: ? Understand these instructions. ? Will watch your condition. ? Will get help right away if you are not doing well or get worse. Document Released: 03/27/2001 Document Revised: 03/16/2013 Document Reviewed: 02/01/2013 ExitCare? Patient Information ?2014 [employer]. This information is not intended to replace advice given to you by your health care provider. Make sure you discuss any questions you have with your health care provider. Normal [facility] Vital Signs Date Time Vital Sign Value Performing Clinician Julissa melissa 08-28-2021 16:04-0400 SaO2% (BldA) [Mass fraction] 96 % Wyatt Tapia MD Work Phone: [facility] [address] 08-28-2021 15:56-0400 Body temperature 97.81 [degF] Wyatt Tapia MD Work Phone: [facility] [address] 08-28-2021 15:56-0400 Diastolic blood pressure 85 mm[Hg] Wyatt Tapia MD Work Phone: [employer] 08-28-2021 15:56-0400 Heart rate 99 /min Wyatt Tapia MD Work Phone: [employer] 08-28-2021 15:56-0400 Respiratory rate 14 /min Wyatt Tapia MD Work Phone: [employer] 08-28-2021 15:56-0400 Systolic blood pressure 137 mm[Hg] Wyatt Tapia MD Work Phone: [facility] [address] 08-28-2021 11:00-0400 Body mass index (BMI) [Ratio] 38.52 kg/m2 Wyatt Tapia MD Work Phone: [facility] [address] 08-28-2021 11:00-0400 Body weight 101.8 kg Wyatt Tapia MD Work Phone: [facility] [address] 08-26-2021 10:00-0400 Body height 162.6 cm Wyatt Tapia MD Work Phone: [facility] [address] Encounters Encounter Date Encounter Type Care Provider Facility Start: 10-16-2022 ambulatory NARNEILATH ROMAINESHMIPATHY . Facility:[facility] Start: 07-29-2022 ambulatory NARBRI PENNMIPATHEvens . Facility:[facility] Start: 07-24-2022 End: 07-25-2022 ambulatory ROSI PENNMIPATHY . Facility:[facility] Start: 07-03-2022 End: 07-04-2022 ambulatory ROSI CORLEY . Facility:[facility] Start: 05-01-2022 End: 05-02-[address] KAITLIN WILHELM . Facility:[facility] Start: 04-22-2022 Encounter for preprocedural laboratory examination DR KAITLIN WILHELM . [facility] Start: 04-01-2022 End: 04-01-[address] YANETH AN . Facility:[facility] Start: 03-28-2022 End: 03-29-[address] KAITLIN WILHELM . Facility:[facility] Start: 03-28-2022 End: 03-29-2022 Encounter for preprocedural laboratory examination DR KAITLIN WILHELM . Facility:[facility] Start: 03-28-[address] YANETH AN . Facili ty:[facility] Start: 03-20-2022 End: 03-21-2022 ambulatory THERESA WAGNER . Facility:[facility] Start: 02-18-[address] YANETH AN . Facili ty:[facility] Start: 02-14-2022 End: 02-15-[address] YANETH AN . Facility:[facility] Start: 02-11-2022 End: 02-11-[address] KAITLIN WILHELM . Facility:[facility] Start: 02-07-2022 End: 02-08-[address] YANETH AN . Facility:[facility] Start: 12-12-2021 End: 12-13-2021 ambulatory THERESA WAGNER . Facility:[facility] Start: 11-20-2021 Encounter for genera l adult medical examination without abnormal findings DR YANETH AN . [facility] Start: 11-19-2021 End: 11-20-[address] YANETH AN . Facility:[facility] Start: 11-19-2021 End: 11-20-2021 Encounter for general adult medical examination without abnormal findings DR YANETH AN . Facility:[facility] Start: 10-10-2021 End: 10-11-[address] KAITLIN WILHELM . Facility:[facility] Start: 08-30-2021 End: 09-28-[address] DOCTOR THOMAS Facility:[facility] Start: 08-28-2021 End: 08-28-2021 ambulatory WYATT TAPIA [facility] Start: 08-28-2021 End: 08-28-2021 Evaluation and management of inpatient Wyatt Tapia MD Work Phone: [facility] Start: 08-28-2021 End: 08-28-2021 Subsequent hospital visit by physician Wyatt Tapia MD Work Phone: [facility] Start: 08-26-2021 End: 08-27-[address] DO[address] THOMAS Facility:[facility] Start: 07-14-2021 Refill Paul Nj MD Work Phone: General Surgery Comment on above: Refill Request Procedures Date Procedure Procedure Detail Performing Clinician Start: 08-28-2021 POCT GLUCOSE BLOOD Bita Tapia MD Work Phone: Start: 08-28-2021 Radiologic examinati on pelvis 1/2 views Zafar ACOSTA Work Phone: Start: 08-28-2021 POCT GLUCOSE BLOOD Bita Tapia MD Work Phone: Start: 03-22-2021 Antibody screen Comment on above: Performed By: #### T [id number] ####[id number] [place], [place] [phone] Start: 12-14-2020 Antibody screen Comment on above: Performed By: #### T SCR30 ####[id number] [place], [place] [phone] Plan of Treatment Date Care Activity Detail Author Start: 12-14-2025 LIPID SCREEN LIPID SCREEN [facility] Start: 03-22-2024 DIABETES SCREEN DIABETES SCREEN [facility] Start: 08-02-2022 Hypertension/CHF/CAD Annual BMP Blood Test Hypertension/CHF/CAD Annual BMP Blood Test [facility] [address] Start: 08-28-2021 End: 08-28-2021 Arthrp acetblr/prox fem prostc agrft/algrft ARTHROPLASTY HIP TOTAL Unilateral primary osteoarthritis, right hip 08/28/2021 12:57 PM EDT [facility] Start: 07-01-2021 Adolescent depression screening assessment Depression Screening [facility] [address] Start: 07-01-2021 Hepatitis C screening Hepatitis C Screening [facility] [address] Start: 07-01-2021 HIV screening HIV Screening [facility] [address] Start: 07-01-2021 Lipid panel Cholesterol Screening (Lipid Panel) [facility] [address] Start: 07-01-2021 Screening for malignant neoplasm of breast Breast Cancer Screening [facility] [address] Start: 07-01-2021 Screening for malignant neoplasm of colon Colorectal Cancer Screening: Colonoscopy [facility] [address] Start: 07-01-2021 Screening for malignant neoplasm of lung Lung Cancer Screening (Low Dose CT) [facility] [address] Start: 07-01-2021 Social Influencers of Health Screening Social Influencers of Health Screening [facility] [address] Start: 07-17-2019 Influenza vaccination LUNG CANCER SCREENING [facility] Start: 2014 SHINGRIX VACCINE (1 of 2) SHINGRIX VACCINE (1 of 2) [facility] Start: 2014 Zoster Vaccines (1 of 2) Zoster Vaccines (1 of 2) [facility] Start: 2009 COLOGUARD (FIT-DNA) COLOGUARD (FIT-DNA) [facility] Start: 2009 Colonoscopy COLONOSCOPY [facility] Start: 2009 COLORECTAL CANCER SCREENING COLORECTAL CANCER SCREENING [facility] Start: [address] COLONOGRAPHY [facility] Start: 2009 FECAL OCCULT BLOOD FECAL OCCULT BLOOD [facility] Start: 2009 SIGMOIDOSCOPY SIGMOIDOSCOPY [facility] Start: 2004 Mammography MAMMOGRAM [facility] Start: 1994 HPV TESTING HPV TESTING [facility] Start: 1985 PAP TESTING PAP TESTING [facility] Start: 1985 Screening for malignant neoplasm of cervix Cervical Cancer Screening: Pap Smear [facility] [address] Start: 07-17-1983 DTaP,Tdap,and Td Vaccines (1 - Tdap) DTaP,Tdap,and Td Vaccines (1 - Tdap) [facility] [address] Start: 07-17-1983 Urine microalbumin profile DTAP,TDAP,TD (1 - Tdap) [facility] Start: 1982 HEPATITIS C SCREENING HEPATITIS C SCREENING [facility] Start: 1982 HIV SCREENING HIV SCREENING [facility] Start: 1976 Adult depression screening assessment DEPRESSION SCREENING [facility] Glucose [Mass/volume ] in Serum or Plasma POCT Glucose, blood Point of Care Testing-Docked Device Routine 08/28/2021 3:42 PM EDT [facility] [address] Work Phone: Immunizations Immunization Date Immunization Notes Care Provider Fa cili 12-28-2020 influenza, injectabl e, quadrivalent, preservative free Paul Nj MD Work Phone: [facility] Payers Date Payer Category Payer Medicaid [id number] 2020 Medicaid [id number] 1964 Unknown [id number] 2.16.8 [id number] 1964 Unknown [id number] 2.16.84 0.1.810206.3.579.2.593 1964 Unknown [id number] 2.16.84 0.1.486270.3.579.2.593 1964 Unknown [id number] 2.16.84 0.1.465733.3.579.2.593 1964 Unknown [id number] 2.16.84 0.1.831213.3.579.2.593 1964 Unknown [id number] 2.16.84 0.1.961258.3.579.2.593 1964 Unknown [id number] 2.16.84 0.1.621015.3.579.2.593 1964 Unknown [id number] 2.16.84 0.1.533244.3.579.2.593 1964 Unknown [id number] 2.16.84 0.1.166299.3.579.2.593 1964 Unknown [id number] 2.16.84 0.1.713895.3.579.2.593 1964 Unknown [id number] 2.16.84 0.1.387296.3.579.2.593 1964 Unknown [id number] 2.16.84 0.1.482244.3.579.2.593 1964 Unknown [id number] 2.16.84 0.1.546024.3.579.2.593 1964 Unknown [id number] 2.16.84 0.1.445978.3.579.2.593 1964 Unknown [id number] 2.16.84 0.1.624376.3.579.2.593 1964 Unknown [id number] 2.16.84 0.1.993698.3.579.2.593 1964 Unknown [id number] 2.16.84 0.1.512686.3.579.2.593 1964 Unknown [id number] 2.16.84 0.1.857821.3.579.2.593 1964 Unknown [id number] 2.16.84 0.1.334606.3.579.2.593 1964 Unknown [id number] 2.16.84 0.1.199373.3.579.2.593 1964 Unknown [id number] 2.16.84 0.1.049302.3.579.2.593 1960 Medicaid [id number] Social History Date Type Detail Facility Start: 12-12-2020 End: 08-26-2021 Tobacco smoking status NHIS Ex-smoker [facility] Work Phone: Start: 08-27-2015 End: 04-13-2018 History of tobacco use Current smoker [facility] Work Phone: End: 04-13-2018 History of tobacco use Cigarette Smoker [facility] Work Phone: Start: 12-12-2020 Cigarettes smoked current (pack per day) - Reported 1 [facility] Start: 12-12-2020 End: 08-26-2021 Tobacco use and exposure Smokeless tobacco non-user [facility] Work Phone: Start: 12-12-2020 History SDOH Alcohol Comment 2-3 per month [facility] Start: 1965 Sex Assigned At Female C [facility] Start: 08-28-2021 Alcohol intake Ex-drinker (finding) [facility] [address] Start: 1965 Sex Assigned At Not on file T [facility] Start: 08-18-2021 End: 08-28-2021 Exposure to SARS-CoV-2 (event) Not sure [facility] Medical Equipment Procedure Code Equipment Code Equipment Origin al Text Equipment Identifier Dates G7 Finned 4 H Sh ell 54mm F - Sn/A - [id number] ()[id number] [id number]( 21)N/A, [id number] FDA Start: 08-28-2021 Liner G7 Neutral Ve 36mm F - Sn/A - [id number] ()[id number] [id number] (21)N/A, [id number] FDA Start: 08-28-2021 G7 Screw 6.5mm X 30mm - Sn/A - [id number] ()[id number] [id number]( 21)N/A, [id number] FDA Start: 08-28-2021 Complete Ho Collarless Sz 6 - Sn/A - [id number] [id number]( 21)N/A, [id number] FDA Start: 08-28-2021 Hip Hd Fem 03/26 Blx 36mm -3.5 - Sn/A - [id number] ()[id number] [id number]( 21)N/A, [id number] FDA Start: 08-28-2021 Clinical Notes 07-30-2020 to 07-24-2022 Shani Matamoros, RN - 08/28/2021 5:33 PM EDAlli Hyman, PT - 08/28/2021 4:30 PM Jaxon Hall RN - 08/28/2021 1:48 PM EDAna Smith, RN - 08/28/2021 3:44 PM EDT Note Date & Type Note Facility 07-24-2022 Note CONSULTATION PROCEDURE DATE: 07/24/2022 PROCEDURE: Right knee joint injection in the office. PREOPERATIVE DIAGNOSIS: Pain secondary to osteoarthrosis of the right knee joint. POSTOPERATIVE DIAGNOSIS: Pain secondary to osteoarthrosis of the right knee joint. SOLUTION USED FOR INJECTION: 2 mL of 2% lidocaine, 2 mL of 0.25% Marcaine, and 20 mg of Kenalog, a total of 5 mL, and 3 mL was used for the injection. IMMEDIATE COMPLICATIONS: None. PROCEDURE: After informed consent was obtained from the patient, placed in the sitting position. Skin overlying the area was prepped with alcohol. A 25 gauge needle inserted into the right knee joint space, finding the point just lateral to the patella tendon. After encountering the knee joint space, no indication of intravascular or intraneural needle tip placement, 3 mL of solution was injected. Post procedure needle was removed. She reports a marked reduction in her pain symptoms. She will be discharged home after meeting criteria. [facility] 07-03-2022 Note CONSULTATION CONSULTATION DATE: 07/03/2022 TO: Dr. An HISTORY: Patient returns today complaining of pain in her right knee area. She describes the pain as being 5-7/10 pain, sharp in character, increased with any kind of weight bearing activity. She also reports significant amount of stiffness involving her right knee joint after being sedentary for short periods of time. Upon ambulating or transitioning, she reports it takes a few minutes for the stiffness to improve, but she still has pain with weight bearing maneuvers. She feels most comfortable in the semi-recumbent position. She denied any change in bowel and bladder habits or new sensorimotor changes in the lower extremities. EXAMINATION: Her examination is notable for the patient having edema of her right knee joint, tenderness along the medial aspect of her right knee joint with significant tenderness involving the hamstring and gastrocnemius muscle as well. She had crepitus involving the right knee joint. She had a negative J-sign. She had nothing to suggest ligamental laxity on today's visit involving the right knee. IMPRESSION: Our impression is patient with chronic pain with recent flare secondary to osteoporosis of the right knee joint. Her most recent flare has been unresponsive to the use of Celebrex 200 mg p.o. daily to b.i.d., as well as Gorham 5 mg b.i.d., activity modification and a home exercise program. She reports she does respond to baclofen 10 mg at h.s. RECOMMENDATIONS: I have recommended a right knee joint injection. We will obtain urine toxicology screen at today's visit. [facility] 05-01-2022 Note CONSULTATION CONSULTATION DATE: 05/01/2022 HISTORY OF PRESENT ILLNESS: This is a 56-year-old female who returns to the clinic status post repeat left lumbar RFA of L2, L3 and L4, L5 completed on 04/01/2022. The patient states she has received 60% relief at this time. She currently is not participating in exercises, stretches or using heat. She does have a low level, 2/10 dull ache in her lower back. Activities that aggravate her pain are pushing, pulling, standing, walking, lifting and housework. She is inquiring about possible aqua therapy prescription, as she would like to get back in the pool and increase her exercise. Medications include baclofen 10 mg q.h.s., Celebrex 200 mg daily, Gorham 5/325 b.i.d. Patient's REVIEW OF SYSTEMS / PAST MEDICAL HISTORY / ALLERGIES and IMAGES have been reviewed and noted on the chart. PHYSICAL EXAM: VITAL SIGNS: Blood pressure 119/80, heart rate is 85. Temperature is 96.9. She is 5'3 , weighs 99.4 kg. GENERAL IMPRESSION: Pleasant, appropriate, no acute distress. FOCUSED EXAM - BACK: Range of motion is functional in lateral rotation and flexion/extension. Bilateral paravertebral muscles are spasmodic with trigger points identified along the L4-L5 region bilaterally. Compression reproduces patient's pain symptomatology and produces a jump response. Tanja's point non- tender bilaterally. Negative FABERs and compression test. MUSCULOSKELETAL: Motor is 5/5 bilaterally. Patient walks unassisted with a stable gait. NEUROLOGICALLY: Patient is cognitively intact. Bilateral reflexes are 2/2 to her lower extremities. Negative polyneuropathy. DIAGNOSIS: Lumbar spondylosis, lumbar degenerative disc disease and chronic lower back pain. PLAN: Education was given regarding starting stretches which were demonstrated, heat application and a heat rub twice daily. We will send a prescription over for aqua therapy 2-3 times a week for 6-8 weeks. Patient will be seen in the clinic in three months' time unless otherwise indicated. [facility] 03-20-2022 Note CONSULTATION CONSULTATION DATE: 03/20/2022 HISTORY OF PRESENT ILLNESS: This is a 56-year-old female, returning to the clinic status post RFA of L2, L3 and L4, L5 on the right side only. The patient states she received significant relief and is ongoing. Unfortunately, we were unable to move forward with the left side sooner due to discrepancy in her CVID test. She is ready now to move forward with that. Current medications include Celebrex 200 mg daily, Gorham 5/325 b.i.d., baclofen 10 mg q. h.s and Tylenol as needed. Activities that aggravate her pain include standing, walking, evening hours, lifting and housework. She does find leaning over a grocery cart, as well as sitting decreases her pain. Patient's REVIEW OF SYSTEMS / PAST MEDICAL HISTORY / ALLERGIES and IMAGES have been reviewed and they are noted on the chart. PHYSICAL EXAM: VITAL SIGNS: Blood pressure 128/82, heart rate is 70. She is 5'3 and weighs 99 kg. GENERAL APPEARANCE: Pleasant, appropriate, no acute distress. FOCUSED EXAM - BACK: Range of motion is guarded in lateral rotation and flexion/extension. Reproduction of spinal axial pain along the left side of L2, L3 and L4, L5 reproduces patient's symptomatology. Fullness is palpated indicative of facet arthropathy, lumbar spondylosis. Pain does not radiate below the knee. MUSCULOSKELETAL: Motor is intact, 5/5 bilaterally. Patient walks unassisted with a steady gait. Musculature with good tone. No vasomotor weakness noted. NEUROLOGICALLY: Patient is cognitively intact. Radicular sensory is intact. Reflexes are +2 bilaterally. DIAGNOSIS: Lumbar spondylosis, lumbar degenerative disc disease, spinal axial lower back pain. PLAN: We will move forward to authorize radiofrequency ablation to her left side of L2, L3 and L4, L5. She is to continue with heat and vitamins. We will refill her Gorham and baclofen at the set dose and frequency. Patient agrees to move forward with the procedure and will be followed up in the clinic thereafter. [facility] 12-12-2021 Note CONSULTATION CONSULTATION DATE: 12/12/2021 HISTORY OF PRESENT ILLNESS: This is a 56-year-old female returning to the clinic for a three month follow up for her chronic lower back pain. She was last seen on 10/10/2021 which, at that time, her pain was moderate at 4/10. At that time, she was suffering from frequent UTIs and is treated by her PCP. Today, her pain is 5/10. She describes it as tired, heavy and weak. Her pain has increased since her last appointment and is more obvious with exertion and activities such as standing, walking, stairs and bending and physical activity. She feels that she needs to lean over a cart or a stroller that gives her relief in her lower back. She does use heat and a menthol heat rub, which is beneficial to her. Current medications include Celebrex 200 mg daily, Gorham 5/325 b.i.d., baclofen 10 mg q.h.s. and Adipex. Patient did have radiofrequency ablations to her lower lumbar area in February of 2021 and patient feels her current pain pattern is similar to the pattern she had prior to the RFAs. She denies any new vasomotor changes or radicular pattern. Patient's REVIEW OF SYSTEMS / PAST MEDICAL HISTORY / ALLERGIES and IMAGES have been reviewed and they are noted on the chart. PHYSICAL EXAM: VITAL SIGNS: Blood pressure 134/79, heart rate is 83. Temperature is 97.8. She is 5'3 and weighs 98.6 kg. GENERAL APPEARANCE: Pleasant, appropriate, no acute distress. FOCUSED EXAM - BACK: Range of motion is guarded in lateral rotation and flexion/extension. Reproduction of spinal axial pain noted to compression along the lower lumbar facets of L2, L3 and L4, L5 bilaterally with pain that does not radiate below the knees. Fullness is palpated as well, indicative of facet arthropathy, lumbar spondylosis. Tanja's point is non-tender bilaterally with negative FABERs and compression test. . MUSCULOSKELETAL: Motor is intact, 4/5 bilaterally. Slight muscle atrophy noted to her lower extremities. She does not walk with an assistive device and has a stable gait. NEUROLOGICAL: Negative polyneuropathy. Radicular sensory is intact. +2 bilateral patellar and Achilles reflexes. DIAGNOSIS: Lumbar degenerative disc disease, lumbar spondylosis, spinal axial lower back pain and muscle atrophy. PLAN: We would like to repeat radiofrequency ablation starting on the right side, subsequent move to the left at L2, L3 and L4, L5 looking to be performed in late January. Patient is requesting this timeline as she states she will be doing increased walking with a February vacation and prefers the procedure closer to that time. In the OR, she will receive testosterone cypionate 15 mg IM. A refill for baclofen 10 mg q.h.s and Gorham 5/325 b.i.d. will be sent to her pharmacy. Patient agrees to move forward and be followed up in the clinic post procedure. [facility] 10-10-2021 Note CONSULTATION CONSULTATION DATE: 10/10/2021 This is a 56-year-old female returning to the clinic for a 3-month follow-up for chronic lower back pain and right knee pain. She was last seen on 07/11/2021 which at that time she was having high levels of pain, 10 out of 10, especially to her right hip. Since that time, she had a total hip replacement in [place] and feels great relief. Her pain is four out of 10 today. She does have right knee pain with known osteoarthritis and bone on bone to the lateral aspect. She has received a steroid knee injection on 10/07/2021 which gave her a fair amount of relief. Her current medications include Celebrex 200 mg q. day, Baclofen 10 mg q.h.s. and Gorham 5/325 t.i.d. The patient feels she doesn't need the third pill mostly throughout the day since her hip replacement. She is feeling some tightness in her back which is aggravated by prolonged standing, walking, changes in the weather and sleep. She did have lumbar radiofrequency ablations in February of 2021. She is inquiring about possibly revisiting back procedures, perhaps in the fall. REVIEW OF SYSTEMS, PAST MEDICAL HISTORY, ALLERGIES AND IMAGES: Have been reviewed and noted in the chart. PHYSICAL EXAM: VITAL SIGNS: Blood pressure 120/73, heart rate is 95, temperature is 97.8. Height is 5'3 , weighs 99.8 kg. GENERAL APPEARANCE: Pleasant, appropriate, no acute distress. FOCUSED EXAM: BACK: Range of motion is slightly guarded in lateral rotation and flexion/extension. Paravertebral muscles are non-spasmodic. Tanja's point is nontender with negative Chantelle's and compression. Minimal spinal axial pain to direct compression along L3, L4 and L5 bilaterally, right greater than left. Pain does radiate towards the right buttock. MUSCULOSKELETAL: Motor is intact, 4 out of 5 bilaterally, slight muscle atrophy to right lower extremity. Does not use assistive device and has a steady gait. NEUROLOGICAL: Negative polyneuropathy, +1 bilateral patellar and Achilles reflexes. DIAGNOSIS: Chronic pain syndrome, lumbar degenerative disk, lumbar spondylosis and right knee osteoarthritis. PLAN: We will refill her Gorham but decrease the dose to 5/325 b.i.d. Refill of her Backofen 10 mg q.h.s. will be given as well. She is encouraged to continue with her multivitamins and increase the amount of protein intake. We will see her in three months' time and at that time we will re-evaluate for possible lumbar procedures and/or right knee Durolane injection. The patient agrees to the plan of care and all questions were answered. [facility] Signed and Approved by: THERESA WAGNER . 10/17/2021 10:22:00 [facility] 08-28-2021 History of Present illness Narrative Patient has met goals for discharge from Phase II: o Dressing dry and intact o Pain controlled with oral medication o Meet physical therapy goals for ambulation o No nausea or vomiting, or that it is mild o Able to void Verbal and written discharge instructions given to pt and pt sisters, all state understanding. All questions answered. IV access removed. No further needs noted. Physical Therapy Physical Therapy Evaluation PT Discharge Recommendations: Outpatient PT Distance Ambulated (ft): 75 Device: Rolling walker RLE Weight Bearing Status: As Tolerated Strength RLE R Ankle Dorsiflexion: 5/5 R Ankle Plantar Flexion: 5/5 Strength LLE L Ankle Dorsiflexion: 5/5 L Ankle Plantar Flexion: 5/5 PT - OK to Discharge: Yes AM-PAC: * Wyatt Tapia MD - Primary Procedure(s): Right total hip arthoplasty lateral Day of Surgery Fall prevention education provided including use of call light in hospital, use of appropriate assistive device, safe mobility techniques, and safety measures at home. Continue PT as per POC. Subjective Subjective: Pt sitting EOB upon arrival. Pt c/o 4/10 pain in hip with less pain sitting than lying. 2 family members present for all training. Issued FWW and gait belt (at family request) for home. Pt signed [employer] paperwork. Pt transfer and gait training with FWW SBA. Curb step training with cga and cues for best safety practice as pt with bad R knee per report. Pt gait [id number] with antalgic gait pattern. Pt with 1+1 BRAULIO and completed goals for home with family and OPPT on Thursday. Patient Active Problem List Diagnosis Unilateral primary osteoarthritis, right hip Past Medical History: Diagnosis Date Arthritis Dental disease upper Depression no current meds Diabetes mellitus (CMS/HCC) pre diabetic no meds GERD (gastroesophageal reflux disease) Hypertension no meds Sleep apnea positive test on cpap second test 2019 currently cont on cpap Past Surgical History: Procedure Laterality Date GASTRIC BYPASS JOINT REPLACEMENT Left hip OTHER SURGICAL HISTORY adrenal mass Vitals/Pain: Pain Assessment Pain Assessment: 0-10 Pain Score: 4 Pain Type: Surgical pain Pain Location: Hip Pain Orientation: Right Pain Descriptors: Aching Pain Interventions: Repositioned, Cold applied Objective General Visit Information: General Family/Caregiver Present: Yes Precautions: Precautions Medical Precautions: Fall Risk RLE Weight Bearing Status: As Tolerated Cognition: Cognition Orientation Level: Oriented X4 Home Living: Home Living Type of Home: House Lives With: Family Home Adaptive Equipment: Other (Comment) (Issued FWW and gait belt) Home Layout: Two level Home Access: Other (Comment) (1+1 BRAULIO) Prior Level of Function: Prior Function Level of Riley: Independent with mobility and functional transfers Prior Device Use: Cane General Assessments: Cognition Orientation Level: Oriented X4 Static Sitting Balance Static Sitting-Level of Assistance: Supervision or touching assistance Dynamic Sitting Balance Dynamic Sitting-Level of Assistance: Supervision or touching assistance Static Standing Balance Static Standing-Level of Assistance: Supervision or touching assistance Dynamic Standing Balance Dynamic Standing-Level of Assistance: Supervision or touching assistance Functional Assessments: Bed Mobility Sitting to Lying Assistance: Contact guard Lying to Sitting Assistance: Contact guard Transfers Sit to Stand Assistance: Supervision or touching assistance Ambulation Walking Assistance: Supervision or touching assistance Walking Deficit: Verbal cueing Device: Rolling walker Distance Ambulated (ft): 75 Comments: steady antalgic gait Stairs 1 step (curb): Assistance: Contact guard 1 step (curb): Deficit: Supervision/safety awareness, Verbal cueing Rails: None (Comment) Stairs Comments: Issued gait belt at family request Extremity Assessments: RLE Assessment RLE Assessment: Impaired RLE Assessment Additional: Yes Additional Assessments/Tests: Treatment performed during evaluation: Gait Training Gait Training Time Entry: 15 Gait Training Activity 1: Gait with FWW [id number] SBA Gait Training Activity 2: Curb step training with FWW cga due to R knee deficits Gait Training Activity 3: Issued FWW and set to proper height, pt signed [place] paperwork Assessment/Plan PT Assessment PT Assessment/ Barriers to discharge: Decreased strength, Impaired gait, Pain, Decreased mobility Prognosis: Excellent Evaluation/Treatment Tolerance: Patient tolerated treatment well Comments: Met PT goals for home Medical Staff Made Aware: Yes Comments: MARCELA Mcleod notified Plan Treatment/Interventions: Functional transfer training, Patient/family training, Gait training, Bed mobility PT Plan: Skilled PT PT Frequency: 7 days per week PT Duration of Sessions: PRN PT Treatments per day: 1-2 times per day PT Discharge Recommendations: Outpatient PT Equipment Recommended: Issued FWW and gait belt PT - Evaluation Status: Complete PT - OK to Discharge: Yes PT Goals: Encounter Problems Encounter Problems (Active) There are no active problems. Encounter Problems (Resolved) Template: Physical Therapy Problem: PT Other Dates: Start: 08/28/21 Resolved: 08/28/21 Goal: Pt will perform bed mobility with CGA. (Resolved) Dates: Start: 08/28/21 Expected End: 08/29/21 End: 08/28/21 Description: Outcomes Date/Time User Outcome 08/28/21 1708 Cary Hyman PT Completed Goal: Pt will transfer with SBA. (Resolved) Dates: Start: 08/28/21 Expected End: 08/29/21 End: 08/28/21 Description: Outcomes Date/Time User Outcome 08/28/218 Cary Hyman PT Completed Goal: Pt will ambulate 75 ft. with wheeled walker and SBA (Resolved) Dates: Start: 08/28/21 Expected End: 08/29/21 End: 08/28/21 Description: Outcomes Date/Time User Outcome 08/28/218 Cary Hyman PT Completed Goal: Pt will ascend/descend curb step with CGA and LRAD (Resolved) Dates: Start: 08/28/21 Expected End: 08/29/21 End: 08/28/21 Description: Outcomes Date/Time User Outcome 08/28/218 Cary Hyman PT Completed Goal: Pt will demo good understanding of HEP protocol (Resolved) Dates: Start: 08/28/21 Expected End: 08/29/21 End: 08/28/21 Description: Outcomes Date/Time User Outcome 08/28/218 Cary Hyman PT Completed Education Documentation Precautions, taught by Cary Hyman PT at 08/28/2021 4:30 PM. Learner: Family Readiness: Eager Method: Explanation, Demonstration, Handout Response: Verbalizes Understanding, Demonstrated Understanding, Indicates Understanding in Bedside Comment: HEP instruction for POD 1 with handout, HEP for B LE VRE x10 reps with handout. Proper FWW height, gait belt instruction for applicaiotn and use Precautions, taught by Cary Hyman PT at 08/28/2021 4:30 PM. Learner: Patient Readiness: Eager Method: Explanation, Demonstration, Handout Response: Verbalizes Understanding, Demonstrated Understanding, Indicates Understanding in Bedside Comment: HEP instruction for POD 1 with handout, HEP for B LE VRE x10 reps with handout. Proper FWW height, gait belt instruction for applicaiotn and use Home Exercise Program, taught by Cary Hyman PT at 08/28/2021 4:30 PM. Learner: Family Readiness: Eager Method: Explanation, Demonstration, Handout Response: Verbalizes Understanding, Demonstrated Understanding, Indicates Understanding in Bedside Comment: HEP instruction for POD 1 with handout, HEP for B LE VRE x10 reps with handout. Proper FWW height, gait belt instruction for applicaiotn and use Home Exercise Program, taught by Cary Hyman PT at 08/28/2021 4:30 PM. Learner: Patient Readiness: Eager Method: Explanation, Demonstration, Handout Response: Verbalizes Understanding, Demonstrated Understanding, Indicates Understanding in Bedside Comment: HEP instruction for POD 1 with handout, HEP for B LE VRE x10 reps with handout. Proper FWW height, gait belt instruction for applicaiotn and use Mobility Training, taught by Cary Hyman PT at 08/28/2021 4:30 PM. Learner: Family Readiness: Eager Method: Explanation, Demonstration, Handout Response: Verbalizes Understanding, Demonstrated Understanding, Indicates Understanding in Bedside Comment: HEP instruction for POD 1 with handout, HEP for B LE VRE x10 reps with handout. Proper FWW height, gait belt instruction for applicaiotn and use Mobility Training, taught by Cary Hyman PT at 08/28/2021 4:30 PM. Learner: Patient Readiness: Eager Method: Explanation, Demonstration, Handout Response: Verbalizes Understanding, Demonstrated Understanding, Indicates Understanding in Bedside Comment: HEP instruction for POD 1 with handout, HEP for B LE VRE x10 reps with handout. Proper FWW height, gait belt instruction for applicaiotn and use Education Comments No comments found. Dressing placed at the end of the procedure. documented in this encounter [facility] [address] 08-28-2021 Procedure note Handoff report given to MARCELA Mcleod. [facility] 1965 [facility], A Member of [employer] OPERATIVE REPORT PATIENT NAME: Jessica Dillard DATE OF : 1965 CSN: [id number] SURGEON: Wyatt Taipa MD, FACS DATE OF SERVICE: 08/28/2021 DATE OF SURGERY: 08/28/2021 PREOPERATIVE DIAGNOSIS: OA right hip (M16.11) POSTOPERATIVE DIAGNOSIS: OA right hip (M16.11) PROCEDURE: Primary Right Total Hip Arthroplasty utilizing the direct lateral approach (82329) Femoral Component: [employer] Avenir Complete Collarless Stem , High Offset Size: 6 Acetabular Component: G7 4 Hole Finned Acetabular Shell , 54mm Liner: G7 Vivacit-E Neutral, F, 36mm Screws: G7 Acetabular Screw(s) 6.5x30mm (-); Head Neck Unit: [employer] Ceramic Taper , 36mm , -3.5 ATTENDING SURGEON: Wyatt Tapia MD, FACS BUSINESS AREA DIRECTOR: Zafar Rivas PA-C INDICATIONS: Patient is a 56-year-old Female. History and physical has been reviewed and there have been no changes in the patient's condition. The patient has failed previous conservative treatment. Due to the nature of the patient's persistent symptoms, surgery is recommended. The alternatives, risks and benefits of surgery were discussed with the patient. The patient verbalized their understanding of the risks as well as the alternatives to surgery. The patient wished to proceed with the operative intervention. A signed and witnessed informed consent was placed on the chart. PATIENT IDENTIFICATION AND SURGICAL SITE DETERMINATION: Patient was seen in preop, consent was reviewed, operative procedure was identified and surgical site and thigh marked. ANESTHESIA Pre-Anesthesia Assessment: A History and Physical has been performed, and patient medication allergies have been reviewed. The risks and benefits of the procedure along with sedation options and risks were discussed with the patient. All questions were answered and informed consent was obtained. Anesthesia administered: General, Spinal FINDINGS: Bone: Degenerative changes were found. Exam of the femoral head showed osteophyte formation, eburnated bone, loss of articular cartilage and bone loss. Exam of the acetabulum showed loss of articular cartilage, cyst formation, eburnated bone, significant osteophyte formation and significant synovitis. The quality of the bone stock for subsequent implant placement was good. DESCRIPTION OF PROCEDURE: Intraoperative Inputs and Outputs: Outs: Estimated Blood Loss: 100. Ins: Lactated Ringer's: 2000. Intraoperative Medications: Naropin (Ropivacaine), Epinephrine Drains: No PATIENT POSITIONING: The patient is taken into the operative suite. After suitable and adequate induction of anesthesia, the patient is positioned in the lateral decubitus position using a standard well-padded pegboard. The hip and lower extremity is prepped and draped using a standard. Prior to performance of surgical procedure, a time out was performed to identify the patient, date of , pertinent allergies, surgical procedure, surgical site, perioperative medications to include preoperative antibiotics given, preoperative x-rays and relevant images and results are noted and displayed, and availability of implants and supplies. INCISION TYPE: The tip of the greater trochanter is localized using a spinal needle. An incision is carried out through the skin and subcutaneous tissues one-third distal to the tip of the great trochanter, two-thirds proximal to the tip of the greater trochanter. The fascia libby is now incised along the line of the incision. The trochanter is visualized and the anterior inferior fibers of the gluteus medius and minimus are elevated from their anterior and lateral attachment to the femur. The capsule is incised along the line of the femoral neck. The hip is dislocated anteriorly, using a flexion, external rotation and abduction maneuver. INSTRUMENTS AND METHODS: The femoral head and neck is resected at an approximate angle of 45 degrees from the tip of the greater trochanter. The level of resection is based on the preoperative templating. Attention is then focused to the acetabulum where appropriate anterior-posterior and inferior retractors are placed. The labrum is excised and the condyloid notch is debrided. The acetabulum is now deepened and expanded with sequential reamers to a diameter of 53mm . A cementless G7 4 Hole Finned Acetabular Shell , 54mm acetabular component is now selected and seated within the confines of the acetabulum with a tight and secure interference fit over an autologous grafting obtained from reaming of the femoral head. Screws placed: G7 Acetabular Screw(s) 6.5x30mm (1); . Position of the component is abduction of approximately 40 degrees and anteversion of approximately 15 degrees. Landmarks utilized are the pubis, ischium and ilium. A G7 Vivacit-E Neutral, , F, liner is placed. The femoral canal is now prepared to accept a Avenir Complete Collarless Stem , Size: 6 stem. Trial reduction is now accomplished with the standard and high-offset stems. The High Offset stem is selected and a Size: 6 device is seated with a tight interference fit with supplement autogenous grafting. Femoral head and neck trial units are now utilized to determine stability and leg length equality and a 36mm head and -3.5 neck length is selected. The hip is reduced and stable. The wound is copiously irrigated and infiltrated with Naropin (Ropivacaine), Epinephrine and a topical antibiotic 1 gram of vancomycin in the wound for infection prophylaxis was given. WOUND CLOSURE: Closure is accomplished in layers. The gluteus medius, gluteus minimus and capsule are repaired in continuity with #5 running ethibon and interrupted #1 Vicryl. The fascia libby is closed with running #2 Quill PDO. Subcutaneous tissue is closed with #0 Quill Monoderm and the skin closed with 2-0 Quill Monoderm and Dermabond. A sterile dressing was applied. PATIENT TO RECOVERY ROOM: The patient is turned in the supine position. The patient was awakened from anesthesia and taken to recovery room awake, alert, and stable in good condition. Roentgenographs are then obtained revealing satisfactory position and alignment of the components. BUSINESS AREA DIRECTOR/ATTENDING PHYSICIAN: Zafar Rivas PA-C assisted with proper preoperative positioning, preoperative templating, determining availability of proper implants, prepping and draping of patient, manipulation placement of instruments, protection of ligaments and vital soft tissue structures, assistance in maintaining hemostasis and assistance with closure of wound. He assisted with preoperative, intraoperative, postoperative determination of correct leg length ensuring accuracy of measurements. He assisted with the dislocation of the [place] hip, as well as dislocation/relocation of the prosthetic joint during the operation. His skills and knowledge of the steps of the operation and the desired outcome of each surgical step was crucial, allowing for efficient choreography of surgical procedure, and closure of the wound which lead to reduced surgical time, less blood loss, and less risk of complications for the patient. NOTES: Intraoperative x-rays were obtained to evaluate position and alignment of components. All components were found to be in satisfactory position and alignment. None Created and Digitally Signed By: Wyatt Tapia MD, FACS on 08/28/2021 16:59:00 [facility], A Member of [facility] [address] OPERATIVE REPORT PATIENT NAME: Jessica Dillard DATE OF : 1965 CSN: [id number] SURGEON: Wyatt Tapia MD, FACS DATE OF SERVICE: 08/28/2021 DATE OF SURGERY: 08/28/2021 REF [id number] LOT [id number] G7 Finned Acetabular Shell 54MM SHELL SIZE F LINER SIZE Acetabular shell Use By 2031-04-19 () [id number] (17 [id number]) [id number] REF [id number] LOT [id number] G7 Vivacit-E Size F 36.00 Millimeter Non-constrained polyethylene acetabular liner Use By 2026-07-03 () [id number] (17 [id number] (79) [id number] REF [id number] LOT [id number] G7 ACETABULAR SCREW 6.5MM DIAMETER 30 SCREW LGTH Orthopaedic bone screw, non-bioabsorbable, sterile Use By 2031-06-02 () [id number] (17 [id number]) [id number] REF [id number] LOT [id number] Avenir Complete Size 6 Coated hip femur prosthesis, modular Use By 2025-11-28 () [id number] (17) [id number] (57) [id number] REF [id number] LOT [id number] Biolox delta 36/-3.5 'S' BIOLOX DELTA, CERAMIC FEMORAL HEAD, S, 36/-3.5, TAPER /14 Use By 2031-05-22 () [id number] (17 [id number] (57) [id number] . documented in this encounter [facility] [address] 08-28-2021 History and physical note History and Physical Update ( H&P completed within the previous thirty days ) I personally reviewed the History and Physical, interviewed and examined the patient prior to surgery. No changes have occurred in the patient's condition since the History and Physical was completed. documented in this encounter [facility] [address] 08-26-2021 Hospital course Narrative Pre-Surgery Instructions: Medication Instructions acetaminophen (TYLENOL) 500 mg tablet Continue to take as ordered/prescribed by your pcp amino ac/whey prot conc, isol (WHEY PROTEIN ORAL) Continue to take as ordered/prescribed by your pcplast dose 08/21 baclofen (LIORESAL) 10 mg tablet Continue to take as ordered/prescribed by your pcp BIOTIN ORAL Continue to take as ordered/prescribed by your pcplast dose 08/21 HYDROcodone-acetaminophen ([place]) 5-325 mg per tablet Continue to take as ordered/prescribed by your pcp ibuprofen (ADVIL,MOTRIN) 800 mg tablet Continue to take as ordered/prescribed by your pcplast dose 08/23 MAGNESIUM ORAL Continue to take as ordered/prescribed by your pcplast dose 08/21 multivitamin tablet Continue to take as ordered/prescribed by your pcplast dose 08/21 pantoprazole (PROTONIX) 40 mg EC tablet Continue to take as ordered/prescribed by your pcp polyvinyl alcohol (ARTIFICIAL TEARS) 1.4 % ophthalmic solution Continue to take as ordered/prescribed by your pcp UNABLE TO FIND Continue to take as ordered/prescribed by your pcp ursodioL (ACTIGALL) 300 mg capsule Continue to take as ordered/prescribed by your pcp Additional Instructions: Medication instructions per C Pt states currently using CPAP - Has had a positive sleep study then neg study- instructed to bring CPAP DOS Instructions to prepare for surgery: Increase water intake day PRIOR to surgery. Eat light meals or follow surgeon specific food instructions day PRIOR to surgery. At Midnight, nothing is allowed in your mouth. NO food, water, gum, candy, coffee, mints, tobacco, NOTHING AFTER MIDNIGHT. When you wake up, brush your teeth and use mouthwash. Don't swallow. Take small sip of water with meds that are to be taken DOS. Shower night prior and morning of surgery with antibiotic cleanser OR Dial antibacterial soap (as designated by surgeon). No lotions, creams, powders on your skin. You may wear deodorant (unless surgery is on your shoulder or breast(s)). No shaving surgical site (within 48 hours of surgery). Remove all jewelry, piercings and leave that at home. Leave valuable at home. Wear loose fitting clothes. Bring photo ID, medical insurance card, and copay as needed when you check in for surgery. In addition, bring any of the following: CPAP, living will/ medical POA, glasses, case, hearing aid container, shoulder sling, back brace, walker, cervical collar. Bring your COVID vaccine card, if applicable. Leave walker &/or cane (unless needed prior to surgery) and overnight bag in the car until after your procedure when you are assigned a room. Only 1 designated adult is allowed to go back into Pre-Op area with you. Surgical times are subject to change up until 5:30pm the evening prior to your surgery. Check in at track template maker desk [address] [place] [address]. If Outpatient, these additional instructions apply: An adult must stay with you the whole time you are here and drive you home. An adult must stay with you at home for 24 hours due to Anesthesia. If you have NEREIDA, you are required to stay 3 hours after your surgery before we can discharge you. documented in this encounter [facility] [address] 05-10-2021 Note HNO ID: [id number] Author: Anila Ellis RD Service: ? Author Type: Registered Dietitian Type: Progress Notes Filed: 05/13/2021 7:45 AM Note Text: This visit was performed virtually due to the COVID-19 epidemic as an effort to protect patients and minimize exposure. Consent from patient received to conduct visit virtually. This Team Access Model visit is a virtual GROUP encounter. It required patient-provider interaction for the medical decision making as documented below. Patient reports weight (as measured by home scale) of 240.2 pounds. AMBULATORY PATIENT EDUCATION NOTE-Shared Nutrition Group TOPIC: LIFE STYLE CHANGES: Post-op weight loss surgery: Diet and Exercise READINESS TO LEARN COGNITIVE ABILITY: Alert and oriented MOTIVATION TO LEARN: Eager Interested FAMILY SUPPORT: Unable to assess - Family not present INSTRUCTION PROVIDED TO: Patient PATIENT LEARNS BEST BY: Multiple Methods FACTORS AFFECTING LEARNING: None PHYSICAL LIMITATIONS AFFECTING LEARNING: None LEARNING RESPONSE DIAGNOSIS:Overweight Obesity, related to; decreased energy needs, as evidenced by BMI above normative standard for age and gender Malnutrition Screening Significant unintentional weight loss? No Eating less than 75% of usual intake for more than 2 weeks? No Nutritional status: METHOD OF INSTRUCTION: Individual instruction Group class instruction PATIENT / FAMILY RESPONSE: Nutrition outcome statement: Expect attention to diet to assist with weight management and minimum 500 calories/2 liters of fluids per day. Body mass index is 43.37 kg/m?. Patient participated in a post-op shared nutrition group. Post-op weight loss surgery (LSG) 1 month (Dr. Nj). Weight loss: 374 lbs since initial assessment (277 lbs); 24% loss excess body weight (152 lbs). Pre surgery weight: 267 lbs. Weight loss tracking as expected from surgery. Tolerating phase 3 diet without difficulty. Protein needs estimated at 74 grams protein per day (1.2 g/kg IBW kg). Current intake meeting ~ 100% protein needs. Fluid consumption adequate and appropriate and includes water and protein almazan Patient is taking all (Fusion 4/day , biotin) recommended vitamin/minerals. Exercise includes water therapy and interested in chair exercies. Labs n/a- no recent labs available to evaluate. Reviewed nutrition principles of: 1. Continue to take all recommended vitamin/minerals including daily multivitamin complete, VIt D3 3,000 IU, Vit B12 500 mcg, Vit B - complex (with 75 - 100 mcg thiamine) Iron 45-60 mg and calcium citrate 0883-4663 mg/day 2. Protein goal: 74 grams protein/day 3. Fluid goal: 64 ounces per day (no carbonation, caffeine, calories, alcohol) 4. Start to exercise from a sitting position: 20-25 minutes/session 3-4 x per week: Chair or standing Team Body Project https://www.OrthAlign.com/watch?v=e 8opMY-SoZc Chair exercise [employer] [email or web address]/[email or web address] [email or web address]/[email or web address]-[email or web address] Nida Najera Easy walk in place 15 min [email or web address]://www.DrEd Online [email or web address].com/watch?v=n [email or web address] Body Project 30 min [email or web address] Nida Najera? Higher intensity walk 30 min https://www.DrEd Online Doctorube.com/watch?v=c sPL5IDu5UU 5. Practice mindful eating habits-take small portions, eat slowly, chew thoroughly Nutrition Monitoring AND Evaluation:BMI< 40 Criteria: weight check Need for Follow up: 3 months post op Appointment Start Time: 2:30 PM Appointment End Time: 3:27 PM Time Spent on Consult: 57 minutes - Group Anila Ellis MS,RD,CSOWM,LD [facility] 05-01-2021 Note HNO ID: [id number] Author: Barbara Martines, PhD Service: ? Author Type: Psychologist Type: Progress Notes Filed: 05/09/2021 6:51 AM Note Text: Summary: BMI Psych Post-Op [facility] Cost Center: [facility] Billing code: Conrad CPT Code: 4771196- virtual ([email or web address] Zoom) Due to the federal emergency declaration and the need for ongoing mental health services, the following visit was completed virtually and informed consent obtained orally to reduce the risk of COVID-19 exposure. Oral consent to services related to virtual visits was obtained after information was sent via [employer] or read to patient if [employer] not available. Bariatric Behavioral Services Progress Note May 01, 2021 Start/Stop Time: 9:00 AM - 10:00 AM Surgery date: 03/29/2021 Pre-surgical weight: 266 lbs Surgeon: Dr. Nj Type of surgery: gastric sleeve Psychologist: Saima Del Rosario, Ph.D. Psychologist Subjective: Patient attended a 1 month post-surgery behavioral health psychotherapy session. Patients were reminded of the limits of confidentiality in the group setting and agreed to hold in confidence all matters discussed in the group. The patient's hospital experience and adjustment postsurgery were discussed. Patient discussed benefits they were experiencing after surgery and processed complications. Tools to enhance postsurgical outcomes, including coping skills for social situations and resources such as bariatric support groups, were offered. Patient set goals for lifestyle changes to enhance surgical outcomes. Patient identified challenges to accomplishing goals and lifestyle changes. Discussed normalization of adjustment issues. Topics discussed included: Fear of failure/weight regain, regrets having surgery, body image issues, social eating, maintaining motivation, managing weight loss plateaus, risks of alcohol, tobacco, and substances after surgery, coping with stress, managing social reactions, implementing regular exercise, changes in mood and maladaptive eating patterns. Interventions included: relaxation training, self-monitoring, goal setting, delay/distraction, implementing regular meals/planning, engaging supports/support groups, assertiveness training, cognitive challenging/restructuring and mindfulness. Patient was motivated for surgery as she wanted to be more active with her grandson (age 3), needing knee and hip replacement, arthritis and inability to lose weight. She went back to work this week. She is working on increasing water intake and paying attention to protein. She signed up for swimming yesterday. She is coping by distractions, relaxation and watching television. She has started to implement stimulus control. Post-surgically, the patient reports the following medical complications: Infection and constipation. The following post-surgical psychological complications were reported: None reported. The patient reports the following health behaviors: exercising, obtaining 60 g protein, obtaining 64 oz of water, eating regular meals, taking vitamins and eating slowly. The patients notes the following problematic behaviors: none. AUDIT-C = 0 (Negative) Patient has noticed the following benefits postsurgery with weight loss: pain in knee has been reduced, has lost 42 lbs, cold now Objective: Affect is: Appropriate. The patient paid excellent attention during the group and did verbalize understanding of the material presented. MEDICATIONS Current Outpatient Medications Medication Sig - pantoprazole DR (PROTONIX) 40 mg tablet Take 1 tablet by mouth once daily. - gabapentin (NEURONTIN) 100 mg capsule Take 1 capsule by mouth three times daily for 14 days. - scopolamine (TRANSDERM-SCOP) patch 1.5 mg/72 hr (1 mg over 3 days) Apply 1 Patch as directed every 72 hours. Apply one patch behind the ear every 3 days - ursodiol (ACTIGALL) 300 mg capsule Take 1 capsule by mouth twice daily. - ondansetron orally disintegrating (ZOFRAN ODT) 4 mg disintegrating tablet Take 1 tablet by mouth every 8 hours as needed for nausea/vomiting. - baclofen (LIORESAL) 10 mg tablet - cholecalciferol, vitamin D3, 1,250 mcg (50,000 unit) tab Take one tablet once a week for 12 weeks - VITAMIN B COMPLEX ORAL Take by mouth once daily. - melatonin 10 mg cap Take 10 mg by mouth once daily. - Coenzyme Q10 (CO Q-10) 200 mg cap Take 200 mg by mouth once daily. - magnesium oxide (MAG-OX) 400 mg (241.3 mg magnesium) tablet Take 400 mg by mouth once daily. - omega-3 fatty acids (FISH OIL CONCENTRATE) 1,000 mg cap Take 1 g by mouth once daily. - MULTIVITAMIN ORAL Take by mouth once daily. - calcium carbonate-vitamin D3 (OYSTER SHELL CALCIUM-VIT D3) 500 mg(1,250mg) -200 unit pwp (more content not included)... [facility] 04-25-2021 Note HNO ID: [id number] Author: Paul Nj MD Service: ? Author Type: Physician Type: Progress Notes Filed: 04/25/2021 4:33 PM Note Text: This is a virtual visit using HIPAA compliant video platform. It required patient-provider interaction for the medical decision making as documented below. Assessment BMI Established Visit Patient seen in follow up today for 1 month post op visit. Surgery: Laparoscopic Sleeve Date of Surgery: 03/29/2021 Patient feels okay Diet: Tolerating everything. Sugar: Avoiding Dumping syndrome/symptoms: No Abdominal pain: No Nausea or vomiting: No Reflux: No, on protonix 40 once a day Gallbladder symptoms: No Symptoms of vitamin deficiency: No Multivitamins and supplements: Taking all recommended vitamin/minerals including daily multivitamin complete, VIt D3 3,000 IU, Vit B12 500 mcg, Iron 45-60 mg and calcium citrate 4286-5259 mg/day Plan: Next visit 6 month post op visit. 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 and patient Staffing Anesthesiologist: Tiburcio Eisenberg MD TILT WALL SUPERVISOR: Estefany Cook APRN.TILT WALL SUPERVISOR Performed by: TILT WALL SUPERVISOR Indications and Patient Condition Preoxygenated: yes Patient position: sniffing and ramp Difficult Mask: No Indications for airway management: anesthesia anesthesia circuit Method: asleep Airway Accessory: oral airway (90mm) Final Airway Details Final airway type: endotracheal airway Final Endotracheal Airway: ETT Cuffed: yes Successful intubation technique: video laryngoscopy Devices used: Montano and intubating stylet Endotracheal tube insertion site: oral Blade size: #4 ETT size (mm): 7.5 Measured from: lips Measurement (cm): 21 Placement verified by: chest auscultation and capnometry Cormack-Lehane Classification: grade I - full view of glottis Number of attempts at approach: 1 SIGNATURE: Estefany Cook APRN.TILT WALL SUPERVISOR PATIENT NAME: Jessica Dillard DATE: March 29, 2021 TIME: 10:47 AM CSN: [id number] [facility] 03-25-2021 Note HNO ID: [id number] Author: Wen Bill RN Service: ? Author Type: ? Type: Progress Notes Filed: 03/25/2021 12:03 PM Note Text: BMI SPECIALTY CARE COORDINATION SURGERY PRE-OP EDUCATION NOTE AMBULATORY PATIENT EDUCATION NOTE TOPIC: SURVIVAL SKILLS: Symptom Management Wound Care Diet Pain Management- No Pre op Narcotic prescription provided; educated on alternative methods for pain relief and expectations on pain management bartolo operatively READINESS TO LEARN COGNITIVE ABILITY: Alert and oriented MOTIVATION TO LEARN: Eager FAMILY SUPPORT: Unable to assess - Family not present INSTRUCTION PROVIDED TO: Patient PATIENT LEARNS BEST BY: Multiple Methods FACTORS AFFECTING LEARNING: None PHYSICAL LIMITATIONS AFFECTING LEARNING: None LEARNING RESPONSE DIAGNOSIS: obesity METHOD OF INSTRUCTION: Teach Back diet Group class instruction Written instruction - handouts Verbal instruction Video PATIENT / FAMILY RESPONSE: Verbalizes understanding of: INFECTION MANAGEMENT-Signs and symptoms of an infection and importance of contacting the physician MEDICAL REGIMEN-Importance of following prescribed medical regimen MEDICATION DOSE MISSED-Correct action to take if medication dose is missed MEDICATION PRESCRIBED-Accurate knowledge of prescribed medication prior to discharge MEDICATION ROUTE-Correct route for administration of the prescribed medication MEDICATION SIDE EFFECTS-Side effects associated with the medication that warrant a call to the physician PAIN MANAGEMENT-Effective strategies to manage pain in addition to pain medication POST-OPERATIVE INSTRUCTIONS-Correct actions to take to reduce postoperative complications PRE-OPERATIVE INSTRUCTIONS-Correct action to take to follow pre-operative instructions PATIENT SAFETY PRINCIPLES SYMPTOM MANAGEMENT-Correct actions to take to manage symptoms associated with his/her disease/illness VTE prevention measures WORSENING CONDITION-Signs and symptoms of a worsening condition that warrant a call to the physician WOUND CARE-Correct procedure to perform wound care Information received as demonstrated by interest and questions FOLLOW-UP PLAN: Complete - No need for follow-up SUPPLEMENTAL MATERIAL: Your Surgical Guide REFERRAL (RECOMMENDATION): None Surgery Pre-Op Education Note in Nurse Visit Education video modules viewed by the patient: Yes Postop prescriptions provided to the patient: Yes Postop Surgeon Visit scheduled: Yes On-Call AND Clinic Phone Number given to the Patient: Yes Pre surgery checklist reviewed: Yes Patient Instructions for the Liquid Diet: Day Before Surgery - Liquid Diet Instruction Review 1. Last Protein shake should be before 6 pm. 2. It is important that you stay hydrated - 64 ounces of fluid per day. 3. Drink a 28-32 ounce bottle of a regular (not sugar free) sport drink (Gatorade, Powerade, etc.) the night prior to surgery. If the sport drinks aren?t tolerable, may substitute with no sugar added - no pulp juice - apple, cranberry, lemonade, white grape or orange. Day of Surgery Clear Liquid Diet Drink 12-20 ounces of a regular sport drink (or juice as above) stop liquids 2 hours before scheduled arrival time. Other Instructions Reviewed: Skin Preparation: Hibiclens bottle AND instructions, Elma, wound care, vitamin AND nutrients, activity restrictions post op, discharge instructions AND surgical guide, incentive spirometry;diet progression-mary phase I AND II AND 2wk liquid diet prior to surgery, activity level AND pt responsibility during hospitalization. Sleep Apnea: Even if you don't have the diagnosis of sleep apnea, the pain medicine you receive and your weight put you at risk for breathing complications and apnea after surgery. After your operation, RT will assess you in the recovery room and again on the dias. They will most likely ask you to wear a face mask that will deliver oxygen using some mild positive pressure. The machine will automatically adjust the amount of pressure you receive. Wearing the mask does not mean that you will need to go home with it or have the diagnosis of sleep apnea. It will only be used after surgery to maintain your oxygen levels. Do not take pain medication three hours before bedtime as it may cause breathing difficulty. If you are having pain at bedtime you may take two Extra Strength Tylenol. Wen Bill RN [facility] 03-22-2021 Note Education ([facility]) JESSICA DILLARD ([id number]) 1965 F Date Time Provider Department 03/22/21 WEN BLIL (RN) [facility] Reason for Visit: Education Of Patient/family [904] Primary Visit Diagnosis:Encounter for education [Z71.9] During your visit today, we recorded the following information about you: Allergies As of Date: 03/22/2021 Noted Allergy Reaction CIPROFLOXACIN 10/19/2020 16 - Unknown Date Reviewed: 03/22/2021 Reviewed by: Alison Dejesus LPN - Fully Assessed Prescriptions as of 03/25/2021 - gabapentin (NEURONTIN) 100 mg capsule Take 1 capsule by mouth three times daily for 14 days. - scopolamine (TRANSDERM-SCOP) patch 1.5 mg/72 hr (1 mg over 3 days) Apply 1 Patch as directed every 72 hours. Apply one patch behind the ear every 3 days - ursodiol (ACTIGALL) 300 mg capsule Take 1 capsule by mouth twice daily. - ondansetron orally disintegrating (ZOFRAN ODT) 4 mg disintegrating tablet Take 1 tablet by mouth every 8 hours as needed for nausea/vomiting. - baclofen (LIORESAL) 10 mg tablet - cholecalciferol, vitamin D3, 1,250 mcg (50,000 unit) tab Take one tablet once a week for 12 weeks - pantoprazole DR (PROTONIX) 40 mg tablet Take 1 tablet by mouth once daily. - VITAMIN B COMPLEX ORAL Take by mouth once daily. - melatonin 10 mg cap Take 10 mg by mouth once daily. - Coenzyme Q10 (CO Q-10) 200 mg cap Take 200 mg by mouth once daily. - magnesium oxide (MAG-OX) 400 mg (241.3 mg magnesium) tablet Take 400 mg by mouth once daily. - omega-3 fatty acids (FISH OIL CONCENTRATE) 1,000 mg cap Take 1 g by mouth once daily. - MULTIVITAMIN ORAL Take by mouth once daily. - calcium carbonate-vitamin D3 (OYSTER SHELL CALCIUM-VIT D3) 500 mg(1,250mg) -200 unit pwpk Take 200 mg by mouth twice daily. - LACTOBACILLUS ACIDOPHILUS ORAL Take by mouth once daily. - HYDROcodone-acetaminophen (NORCO) 5-325 mg per tablet Take 1 tablet by mouth twice daily. - ibuprofen (MOTRIN) 800 mg tablet Take 800 mg by mouth every 6 hours as needed. Encounter Status:Closed by WEN BILL RN on 03/25/21 [facility] 03-22-2021 Note HNO ID: [id number] Author: Paul Nj MD Service: ? Author Type: Physician Type: Progress Notes Filed: 03/22/2021 10:19 AM Note Text: SURGERY PREOPERATIVE VISIT NOTE Name: Jessica Dillard Medical Record: [id number] Encounter No.: [id number] Jessica Dillard is a 55 year old female seen in surgery clinic today for their final preoperative assessment. INTERVAL NOTE: Here to discuss regarding sleeve gastrectomy Had an uncomplicated recovery after adrenalectomy US - negative cholelithiasis EGD - Negative esophagitis Current PPI: Protonix 40mg daily. No symptoms of GERD. Understands additional risk of GERD after SG Abdominal surgery hx: 12/27/2020 s/p lap right adrenalectomy PLANNED PROCEDURE: Sleeve gastrectomy PAST MEDICAL HISTORY: PAST MEDICAL HISTORY Diagnosis Date - Adrenal mass (HCC) 12/12/2020 - Elevated glucose 12/12/2020 - GERD (gastroesophageal reflux disease) 12/12/2020 PAST SURGICAL HISTORY: PAST SURGICAL HISTORY Procedure Laterality Date - PAST SURGICAL HISTORY OF left LASHAY - PAST SURGICAL HISTORY OF Left breast duct infection surgery x 2 - PAST SURGICAL HISTORY OF right knee arthroscopy SOCIAL HISTORY: Social History Tobacco Use - Smoking status: Former Smoker Packs/day: 1.00 Years: 40.00 Pack years: 40.00 Types: Cigarettes Quit date: 2018 Years since quittin.9 - Smokeless tobacco: Never Used Substance Use Topics - Alcohol use: Not on file Comment: 2-3 per month - Drug use: Not Currently ALLERGIES: ALLERGIES Allergen Reactions - Ciprofloxacin Unknown MEDICATIONS: Prior to Admission Medications: cholecalciferol, vitamin D3, 1,250 mcg (50,000 unit) tab Take one tablet once a week for [address] (PROTONIX) 40 mg tablet Take 1 tablet by mouth once daily. acetaminophen (TYLENOL) 325 mg tablet Take 2 tablets by mouth every 4 hours as needed for pain. oxyCODONE IR (ROXICODONE) 5 mg immediate release tablet Take 1 tablet by mouth every 6 hours as needed. VITAMIN B COMPLEX ORAL Take by mouth once daily. melatonin 10 mg cap Take 10 mg by mouth once daily. Coenzyme Q10 (CO Q-10) 200 mg cap Take 200 mg by mouth once daily. magnesium oxide (MAG-OX) 400 mg (241.3 mg magnesium) tablet Take 400 mg by mouth once daily. omega-3 fatty acids (FISH OIL CONCENTRATE) 1,000 mg cap Take 1 g by mouth once daily. MULTIVITAMIN ORAL Take by mouth once daily. calcium carbonate-vitamin D3 (OYSTER SHELL CALCIUM-VIT D3) 500 mg(1,250mg) -200 unit pwpk Take 200 mg by mouth twice daily. LACTOBACILLUS ACIDOPHILUS ORAL Take by mouth once daily. HYDROcodone-acetaminophen (NORCO) 5-325 mg per tablet Take 1 tablet by mouth twice daily. ibuprofen (MOTRIN) 800 mg tablet Take 800 mg by mouth every 6 hours as needed. No current facility-administered medications for this visit. VISIT NOTE This patient was seen in clinic today to obtain informed consent, to discuss the details of their upcoming operation including the appropriate expectations for perioperative and postoperative care. In addition, preoperative and postoperative relevant prescriptions were provided and explained during this clinic visit. Based on co morbidities, age and gender, DVT risk is 0.2%. ERAS protocol discussed . Narcotics sparing postop recovery discussed . The consent discussion included the risks, benefits and anticipated outcomes of the procedure, the risks and benefits of the alternatives to the procedure, and the roles and tasks of the personnel to be involved. Patient is scheduled for MIS possible open sleeve gastrectomy, possible repair of hiatal hernia, possible liver biopsy, and intraoperative EGD. I have discussed the risks of surgery including infection, bleeding including injury to the spleen, the mesenteric blood vessels, conversion in the open, postoperative leak requiring stenting, reoperation, resection or repair, stricture requiring dilation or revision, marginal ulcer requiring treatment including reoperation, and incisional hernias. I have also discussed the incidence of reflux problems after sleeve, the possibility of requiring medications for reflux as well or in the worst case scenario requiring surgery for reflux. I have also discussed regarding unsatisfactory weight loss as well as terminal clerk weight regain. I have also discussed medical complications including urinary tract infections, myocardial infarction, DVT, PE, prolonged ICU stay, and possible postoperative mechanical ventilation and the risk of mortality. I have reviewed with this patient needed nutritional changes, post-operative recovery, and the potential for excess skin following surgery and subsequent weight loss. Risks of nicotine before and after bariatric surgery were also discussed with patient. I have also discussed in detail regarding postoperative hospital stay as well as recovery. Due to the Covid-19 pandemic our surgical cases had been delayed/postponed (more content not included)... [facility] 01-15-2021 Note HNO ID: [id number] Author: Stella Pike MD Service: ? Author Type: Physician Type: Progress Notes Filed: 01/16/2021 2:59 PM Note Text: This Team Access Model visit is a virtual encounter. It required patient-provider interaction for the medical decision making as documented below. Both audio and visual components utilized for this visit. Consent from patient received to conduct visit using telehealth. This visit was performed virtually due to the COVID-19 pandemic as an effort to protect patients and minimize exposure. CC/HPI: 55 year old lady presents for follow up evaluation. 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 Limited by hip and knee pain. OTHER: -08/09/2020 OV BMI/[place]orty MEDS: See Epic MEDS: See [facility] Patient-reported medications: -ibuprofen, tylenol prn -has not been taking the metformin (borderline diabetes) -no h/o CT, CHF, no heart problem ? PMH: -DM2-no longer taking metformin- -Vit D3 deficiency -no CT, CAD, CHF, CVA -h/o bronchitis/ and double pneumonia a year ago; smokes an e cigarette on occasion For women: ? control method: ? PSHX: -breast 12-15 years ago -hip replacement 4-5 years ago PAST MEDICAL HISTORY Diagnosis Date - Adrenal mass (HCC) 12/12/2020 - Elevated glucose 12/12/2020 - GERD (gastroesophageal reflux disease) 12/12/2020 cholecalciferol, vitamin D3, 1,250 mcg (50,000 unit) tab Take one tablet once a week for [address] (PROTONIX) 40 mg tablet Take 1 tablet by mouth once daily. acetaminophen (TYLENOL) 325 mg tablet Take 2 tablets by mouth every 4 hours as needed for pain. oxyCODONE IR (ROXICODONE) 5 mg immediate release tablet Take 1 tablet by mouth every 6 hours as needed. VITAMIN B COMPLEX ORAL Take by mouth once daily. melatonin 10 mg cap Take 10 mg by mouth once daily. Coenzyme Q10 (CO Q-10) 200 mg cap Take 200 mg by mouth once daily. magnesium oxide (MAG-OX) 400 mg (241.3 mg magnesium) tablet Take 400 mg by mouth once daily. omega-3 fatty acids (FISH OIL CONCENTRATE) 1,000 mg cap Take 1 g by mouth once daily. MULTIVITAMIN ORAL Take by mouth once daily. calcium carbonate-vitamin D3 (OYSTER SHELL CALCIUM-VIT D3) 500 mg(1,250mg) -200 unit pwpk Take 200 mg by mouth twice daily. LACTOBACILLUS ACIDOPHILUS ORAL Take by mouth once daily. HYDROcodone-acetaminophen (NORCO) 5-325 mg per tablet Take 1 tablet by mouth twice daily. ibuprofen (MOTRIN) 800 mg tablet Take 800 mg by mouth every 6 hours as needed. ALLERGIES Allergen Reactions - Ciprofloxacin Unknown PHYSICAL EXAMINATION: Wt 126.1 kg (278 lb) BMI 47.72 kg/m? General: alert and appropriate, in no distress, well-hydrated, well nourished, happy, smiling, interactive and pleasant lady Skin: no rash noted Head: normocephalic, no abnormality or lesion noted Eyes: no injection and visual acuity is grossly normal Respiratory: breathing non-labored REVIEW OF SYSTEMS Non-remarkable except for what is noted in HPI and/or Assessment/plan ASSESSMENT: Reviewed principles of energy metabolism, caloric intake and expenditure, and rationale for treatment program. Also reinforced need for reduced calorie, low fat diet and increased physical Activity. 1)Morbid obesity Weight and BMI today (01/15/2021) = 278 lbs Weight and BMI previous visit dated: 08/09/2020 = 281 lbs -as of 07/2020 visit, she began phentermine with Dr. An ([phone]) -presurgical testing-has completed labs; had external abd us ( 10/31/2020-DOS: 10/23/2020)-did show adrenal mass, for which she is following with Drs. Nj and Luis Alfredo - Ext 10/31/2020 CXR DOS: 10/23/2020 (Please see the scanned document in [employer] for the exact report details) - 10/31/2020-Ext EKG DOS: 10/23/2020 (Please see the scanned document in [facility] for the exact report details) convo w patient: -has managed her cholesterol with eating/nutrition -denies any h/o of: CT, CHF, or other heart problems -rec'd her to start some structured physical activy-ie, chair exercise, stationary bike, swimming etc as tolerated At this time, based on her self-reported functional capacity, her non-remarkable EKG and stated compliance with cpap, she may be considered at acceptable risk for bariatric surgery 2)Adrenal mass-following with Dr. Ramirez and Dr. Nj 3)NEREIDA- -per patient, on cpap compliant Stella Pike MD I spent a total of about 30 minutes on the date of the service which included preparing to see the patient, obtaining and/or reviewing separately obtained history, counseling and educating the patient/family/caregiver and care coordination (not separately reported). Sent messages to navigation team. [facility] 01-07-2021 Note HNO ID: [id number] Author: Jesus Ramirez MD Service: ? Author Type: Physician Type: Progress Notes Filed: 01/07/2021 2:18 PM Note Text: January 07, 2021 I am pleased to report that Jessica Dillard is recovering well from her recent laparoscopic adrenalectomy. Fortunately, the mass was benign. Incisions healing very well. She does not require any specific follow up from me for this issue, but I have encouraged her to contact me at any time. She is cleared from my perspective for bariatric surgery. Jesus Ramirez MD [facility] 12-28-2020 Note HNO ID: [id number] Author: Loren Boyd MD Service: General Surgery Author Type: Resident Type: Progress Notes Filed: 12/28/2020 7:46 AM Note Text: GENERAL SURGERY PROGRESS NOTE Jessica Dillard [id number] ASSESSMENT AND PLAN 55 year old female with history of adrenal mass s/p laparoscopic adrenalectomy 12/27/2020. On expected course of recovery. Patient stable with pain well controlled. Incision sites were C/D/I. Plan - discharge home Patient Active Hospital Problem List: Adrenal mass (HCC) (12/12/2020) SUBJECTIVE: No acute events overnight. Pain well controlled. Moderate discomfort at right flank. No nausea or vomiting. Tolerating diet. OBJECTIVE: BP 130/57 Pulse 92 Temp 36.6 ?C (97.9 ?F) (Oral) Resp 17 Ht 162.6 cm (5' 4 ) SpO2 95% BMI 47.55 kg/m? Body mass index is 47.55 kg/m?. GENERAL: Alert and oriented, no acute distress, cooperative. LUNGS: Non labored breathing ABDOMEN: soft, non tender, non distended. WOUND: clean, dry and intact Labs: CBC, Coags, BMP, Mg, Phos Recent Labs 12/28/20 0636 WBC 8.65 HB 12.1 HCT 37.7 PLT 226 Liver Function, Amylase, AND Lipase I/O past 24h: Intake/Output Summary (Last 24 hours) at 12/28/2020 0740 Last data filed at 12/27/2020 1517 Gross per 24 hour Intake 2300 ml Output 25 ml Net 2275 ml LDA: Lines, Drains, and Airways Line Peripheral 12/28/20 0202 Right Forearm 22 Gauge <1 day SURGERY/PROCEDURE: Procedure(s) and Anesthesia Type: * LAPAROSCOPIC ADRENALECTOMY - General Loren En Oliver PGY-1 General Surgery [facility] 12-27-2020 Note HNO ID: [id number] Author: Estefany Cook APRN.TILT WALL SUPERVISOR Service: Anesthesiology Author Type: Nurse Welder Gun Type: Anesthesia Procedure Notes Filed: 12/27/2020 1:57 PM Note Text: ANESTHESIOLOGY PROCEDURE NOTE PIV General Information Procedure Start Time/Medication Administration: 12/27/2020 12:40 PM Patient Location: OR Staffing Anesthesiologist: Abilio Hansen DO Performed by: anesthesiologist Preparation Sterility Preparation: hand hygiene performed prior to procedure, surgical cap used, mask used, skin prep agent completely dried prior to procedure Sterility Technique Not Completely Performed Due to Extreme Emergency: No Site Prep: alcohol Procedure Details Indication: need for IV access Needle Size/Type: 16 gauge angiocath Orientation: Right Location: Hand Imaging Guidance Used: No SIGNATURE: Estefany Cook APRN.TILT WALL SUPERVISOR PATIENT NAME: Jessica Dillard DATE: December 27, 2020 TIME: 1:57 PM CSN: [id number] [facility] 12-27-2020 Note HNO ID: [id number] Author: Estefany Cook APRN.TILT WALL SUPERVISOR Service: Anesthesiology Author Type: Nurse Welder Gun Type: Anesthesia Procedure Notes Filed: 12/27/2020 1:56 PM Note Text: ANESTHESIOLOGY PROCEDURE NOTE Airway General Information Procedure Start Time/Medication Administration: 12/27/2020 12:36 PM Patient location during procedure: OR Timeout Performed Pre-procedure: timeout performed Consent Obtained: Yes Patient identity confirmed: arm band and patient Staffing Anesthesiologist: Abilio Hansen DO SRNA: DANUTA Barrios Performed by: DANUTA Indications and Patient Condition Preoxygenated: yes Patient position: sniffing Difficult Mask: No Indications for airway management: anesthesia anesthesia circuit Method: asleep Cricoid Pressure: No Airway Accessory: oral airway Final Airway Details Final airway type: endotracheal airway Final Endotracheal Airway: ETT Cuffed: yes Successful intubation technique: video laryngoscopy Devices used: Glidescope Endotracheal tube insertion site: oral Blade size: #4 ETT size (mm): 7.0 Measured from: lips Measurement (cm): 22 Placement verified by: chest auscultation and capnometry Cormack-Lehane Classification: grade I - full view of glottis Number of attempts at approach: 1 Airway not difficult SIGNATURE: Estefany Cook APRN.CRNA PATIENT NAME: Jessica Dillard DATE: December 27, 2020 TIME: 1:54 PM CSN: [id number] [facility] 12-27-2020 Note HNO ID: [id number] Author: Estefany Cook APRN.CRNA Service: Anesthesiology Author Type: Nurse Welder Gun Type: Anesthesia Procedure Notes Filed: 12/27/2020 1:52 PM Note Text: ANESTHESIOLOGY PROCEDURE NOTE A-Line General Information Procedure Start Time/Medication Administration: 12/27/2020 12:47 PM Patient location during procedure: OR Timeout Performed Pre-procedure: timeout performed Indication: continuous blood pressure monitoring and blood sampling needed Staffing Anesthesiologist: Abilio Hansen DO SRNA: DANUTA Barrios Performed by: DANUTA Preparation Sterility Preparation: hand hygiene performed prior to procedure, surgical cap used, mask used, sterile drape used during line insertion, skin prep agent completely dried prior to procedure Sterility Technique Not Completely Performed Due to Extreme Emergency: No Site Prep: Chloraprep Procedure Details Catheter Size: 20 G Catheter Length: 5.25 in Micropuncture Kit Used: No Guidewire Used: Yes Guidewire Removed Intact: YesLaterality: right Site: radial artery Ultrasound Guided: Yes Image in Chart: No Sites: potential access sites evaluated, selected vessel patent, concurrent real time ultrasound visualization of vascular needle entry Vessel: target vessel identified and guidewire advanced into vesselLine Secured: tape and occlusive biodressing Events Events: patient tolerated procedure well with no complications SIGNATURE: Estefany Cook APRN.CRNA PATIENT NAME: Jessica Dillard DATE: December 27, 2020 TIME: 1:50 PM CSN: [id number] [facility] 11-30-2020 Note HNO ID: [id number] Author: Anila Silva RN Service: ? Author Type: Registered Nurse Type: Progress Notes Filed: 12/03/2020 3:41 PM Note Text: Pt notified not to do the Synvisc injection within 2 weeks of surgery- pt understood Anila Silva RN December 03, 2020 3:41 PM Patient called asking if this is OK to do 2 days before surgery with Dr. Ramirez- told pt this is OK Anila Silva RN November 30, 2020 4:10 PM DESCRIPTION Synvisc-One? (hylan G-F 20) is an elastoviscous high molecular weight fluid containing hylan A and hylan B polymers produced from chicken savage. Hylans are derivatives of hyaluronan (sodium hyaluronate). Hylan G-F 20 is unique in that the hyaluronan is chemically crosslinked. Hyaluronan is a long-chain polymer containing repeating disaccharide units of Rq-msadggyjhru-L-acetylglucosamin e. [facility] 11-23-2020 Note HNO ID: [id number] Author: Anila Silva RN Service: ? Author Type: Registered Nurse Type: Progress Notes Filed: 11/23/2020 4:42 PM Note Text: BMI SPECIALTY CARE COORDINATION SURGERY PRE-OP EDUCATION NOTE This visit was performed via phone due to the COVID-19 epidemic as an effort to protect patients and minimize exposure. AMBULATORY PATIENT EDUCATION NOTE TOPIC: SURVIVAL SKILLS: Symptom Management Wound Care Diet Pain Management- No Pre op Narcotic prescription provided; educated on alternative methods for pain relief and expectations on pain management bartolo operatively READINESS TO LEARN COGNITIVE ABILITY: Alert and oriented MOTIVATION TO LEARN: Eager Interested FAMILY SUPPORT: Unable to assess - Family not present INSTRUCTION PROVIDED TO: Patient PATIENT LEARNS BEST BY: Individual Instruction Written Instruction - Hand-outs Verbal Instruction FACTORS AFFECTING LEARNING: None PHYSICAL LIMITATIONS AFFECTING LEARNING: None LEARNING RESPONSE DIAGNOSIS: obesity METHOD OF INSTRUCTION: Teach Back diet Group class instruction Written instruction - handouts Verbal instruction Video PATIENT / FAMILY RESPONSE: Verbalizes understanding of: INFECTION MANAGEMENT-Signs and symptoms of an infection and importance of contacting the physician MEDICAL REGIMEN-Importance of following prescribed medical regimen MEDICATION DOSE MISSED-Correct action to take if medication dose is missed MEDICATION PRESCRIBED-Accurate knowledge of prescribed medication prior to discharge MEDICATION ROUTE-Correct route for administration of the prescribed medication MEDICATION SIDE EFFECTS-Side effects associated with the medication that warrant a call to the physician PAIN MANAGEMENT-Effective strategies to manage pain in addition to pain medication POST-OPERATIVE INSTRUCTIONS-Correct actions to take to reduce postoperative complications PRE-OPERATIVE INSTRUCTIONS-Correct action to take to follow pre-operative instructions PATIENT SAFETY PRINCIPLES SYMPTOM MANAGEMENT-Correct actions to take to manage symptoms associated with his/her disease/illness VTE prevention measures WORSENING CONDITION-Signs and symptoms of a worsening condition that warrant a call to the physician WOUND CARE-Correct procedure to perform wound care Information received as demonstrated by interest and questions FOLLOW-UP PLAN: Complete - No need for follow-up SUPPLEMENTAL MATERIAL: Your Surgical Guide REFERRAL (RECOMMENDATION): None Surgery Pre-Op Education Note in Nurse Visit Postop prescriptions provided to the patient: Yes Postop Surgeon Visit scheduled: Yes On-Call AND Clinic Phone Number given to the Patient: Yes Pre surgery checklist reviewed: Yes Patient Instructions for the Liquid Diet: Day Before Surgery - Liquid Diet Instruction Review 1. Last Protein shake should be before 6 pm. 2. It is important that you stay hydrated - 64 ounces of fluid per day. 3. Drink a 28-32 ounce bottle of a regular (not sugar free) sport drink (Gatorade, Powerade, etc.) the night prior to surgery. If the sport drinks aren?t tolerable, may substitute with no sugar added - no pulp juice - apple, cranberry, lemonade, white grape or orange. Day of Surgery Clear Liquid Diet Drink 12-20 ounces of a regular sport drink (or juice as above) stop liquids 2 hours before scheduled arrival time. Other Instructions Reviewed: Skin Preparation: Hibiclens bottle AND instructions, Elma, wound care, vitamin AND nutrients, activity restrictions post op, discharge instructions AND surgical guide, incentive spirometry;diet progression-mary phase I AND II AND 2wk liquid diet prior to surgery, activity level AND pt responsibility during hospitalization. Sleep Apnea: Even if you don't have the diagnosis of sleep apnea, the pain medicine you receive and your weight put you at risk for breathing complications and apnea after surgery. After your operation, RT will assess you in the recovery room and again on the dias. They will most likely ask you to wear a face mask that will deliver oxygen using some mild positive pressure. The machine will automatically adjust the amount of pressure you receive. Wearing the mask does not mean that you will need to go home with it or have the diagnosis of sleep apnea. It will only be used after surgery to maintain your oxygen levels. Do not take pain medication three hours before bedtime as it may cause breathing difficulty. If you are having pain at bedtime you may take two Extra Strength Tylenol. Anila Silva RN [facility] 11-23-2020 Note Education (THERESA) JESSICA DILLARD ([id number]) 1965 F Date Time Provider Department 11/23/20 ANILA SILVA Reason for Visit: Patient Education [91] Progress Notes: Anila Silva RN 11/23/2020 4:42 PM Signed [facility] SPECIALTY CARE COORDINATION SURGERY PRE-OP EDUCATION NOTE This visit was performed via phone due to the COVID-19 epidemic as an effort to protect patients and minimize exposure. AMBULATORY PATIENT EDUCATION NOTE TOPIC: SURVIVAL SKILLS: Symptom Management Wound Care Diet Pain Management- No Pre op Narcotic prescription provided; educated on alternative methods for pain relief and expectations on pain management bartolo operatively READINESS TO LEARN COGNITIVE ABILITY: Alert and oriented MOTIVATION TO LEARN: Eager Interested FAMILY SUPPORT: Unable to assess - Family not present INSTRUCTION PROVIDED TO: Patient PATIENT LEARNS BEST BY: Individual Instruction Written Instruction - Hand-outs Verbal Instruction FACTORS AFFECTING LEARNING: None PHYSICAL LIMITATIONS AFFECTING LEARNING: None LEARNING RESPONSE DIAGNOSIS: obesity METHOD OF INSTRUCTION: Teach Back diet Group class instruction Written instruction - handouts Verbal instruction Video PATIENT / FAMILY RESPONSE: Verbalizes understanding of: INFECTION MANAGEMENT-Signs and symptoms of an infection and importance of contacting the physician MEDICAL REGIMEN-Importance of following prescribed medical regimen MEDICATION DOSE MISSED-Correct action to take if medication dose is missed MEDICATION PRESCRIBED-Accurate knowledge of prescribed medication prior to discharge MEDICATION ROUTE-Correct route for administration of the prescribed medication MEDICATION SIDE EFFECTS-Side effects associated with the medication that warrant a call to the physician PAIN MANAGEMENT-Effective strategies to manage pain in addition to pain medication POST-OPERATIVE INSTRUCTIONS-Correct actions to take to reduce postoperative complications PRE-OPERATIVE INSTRUCTIONS-Correct action to take to follow pre-operative instructions PATIENT SAFETY PRINCIPLES SYMPTOM MANAGEMENT-Correct actions to take to manage symptoms associated with his/her disease/illness VTE prevention measures WORSENING CONDITION-Signs and symptoms of a worsening condition that warrant a call to the physician WOUND CARE-Correct procedure to perform wound care Information received as demonstrated by interest and questions FOLLOW-UP PLAN: Complete - No need for follow-up SUPPLEMENTAL MATERIAL: Your Surgical Guide REFERRAL (RECOMMENDATION): None Surgery Pre-Op Education Note in Nurse Visit Postop prescriptions provided to the patient: Yes Postop Surgeon Visit scheduled: Yes On-Call AND Clinic Phone Number given to the Patient: Yes Pre surgery checklist reviewed: Yes Patient Instructions for the Liquid Diet: Day Before Surgery - Liquid Diet Instruction Review 1. Last Protein shake should be before 6 pm. 2. It is important that you stay hydrated - 64 ounces of fluid per day. 3. Drink a 28-32 ounce bottle of a regular (not sugar free) sport drink (Gatorade, Powerade, etc.) the night prior to surgery. If the sport drinks aren?t tolerable, may substitute with no sugar added - no pulp juice - apple, cranberry, lemonade, white grape or orange. Day of Surgery Clear Liquid Diet Drink 12-20 ounces of a regular sport drink (or juice as above) stop liquids 2 hours before scheduled arrival time. Other Instructions Reviewed: Skin Preparation: Hibiclens bottle AND instructions, Elma, wound care, vitamin AND nutrients, activity restrictions post op, discharge instructions AND surgical guide, incentive spirometry;diet progression-mary phase I AND II AND 2wk liquid diet prior to surgery, activity level AND pt responsibility during hospitalization. Sleep Apnea: Even if you don't have the diagnosis of sleep apnea, the pain medicine you receive and your weight put you at risk for breathing complications and apnea after surgery. After your operation, RT will assess you in the recovery room and again on the dias. They will most likely ask you to wear a face mask that will deliver oxygen using some mild positive pressure. The machine will automatically adjust the amount of pressure you receive. Wearing the mask does not mean that you will need to go home with it or have the diagnosis of sleep apnea. It will only be used after surgery to maintain your oxygen levels. Do not take pain medication three hours before bedtime as it may cause breathing difficulty. If you are having pain at bedtime you may take two Extra Strength Tylenol. Anila Silva RN During your visit today, we recorded the following information about you: Allergies As of Date: 11/23/2020 Noted Allergy Reaction CIPROFLOXACIN 10/19/2020 16 - Unknown Date Reviewed: 10/19/2020 Reviewed by: (more content not included)... [facility] 11-22-2020 Note HNO ID: [id number] Author: Anila Silva RN Service: ? Author Type: Registered Nurse Type: Progress Notes Filed: 11/23/2020 8:30 AM Note Text: Confirmed 16 for right adrenalectomy [facility] 11-19-2020 Note HNO ID: [id number] Author: Jesus Ramirez MD Service: ? Author Type: Physician Type: Progress Notes Filed: 11/19/2020 3:11 PM Note Text: VIRTUAL VISIT NEW PATIENT This is a virtual visit using [employer] video visit. It required patient-provider interaction for the medical decision making as documented below. Jessica Dillard is a 55 year old female seen for evaluation of adrenal mass. During her work-up for bariatric surgery it was identified that she had a right adrenal mass on an abdominal ultrasound. Subsequently a CT abdomen pelvis with and without contrast was ordered I requested a second read of this by [facility] radiology. This describes 4.0 x 4.7 cm heterogenous right adrenal nodule, without discernible macroscopic fat. There is a tiny focus of internal calcification. Precontrast attenuation is greater than 10 Hounsfield units though the presence of internal heterogeneity would preclude characterization using noncontrast criteria regardless. Normal appearance of the left adrenal gland. In the impression they confirm that no metastatic disease is seen in the abdomen. On my personal review of the images, the mass is well-circumscribed with a fat plane around it and no evidence of infiltration. She has not gone on hormonal work-up. She has no personal history of spells tachycardia palpitations or recent weight gain though she is morbidly obese. She does have a history of sweating at night that goes back many years. She denies any prior CT scans that can be compared. HISTORY REVIEWED (electronic chart updated): No past medical history on file. No past surgical history on file. No family history on file. Social History Tobacco Use - Smoking status: Light Tobacco Smoker - Smokeless tobacco: Never Used Substance Use Topics - Alcohol use: Not on file - Drug use: Not on file Current Outpatient Medications Medication Sig - pantoprazole DR (PROTONIX) 40 mg tablet Take 1 tablet by mouth once daily. - VITAMIN B COMPLEX ORAL Take by mouth once daily. - melatonin 10 mg cap Take 10 mg by mouth once daily. - Coenzyme Q10 (CO Q-10) 200 mg cap Take 200 mg by mouth once daily. - magnesium oxide (MAG-OX) 400 mg (241.3 mg magnesium) tablet Take 400 mg by mouth once daily. - omega-3 fatty acids (FISH OIL CONCENTRATE) 1,000 mg cap Take 1 g by mouth once daily. - MULTIVITAMIN ORAL Take by mouth once daily. - calcium carbonate-vitamin D3 (OYSTER SHELL CALCIUM-VIT D3) 500 mg(1,250mg) -200 unit pwpk Take 200 mg by mouth twice daily. - LACTOBACILLUS ACIDOPHILUS ORAL Take by mouth once daily. - HYDROcodone-acetaminophen (NORCO) 5-325 mg per tablet Take 1 tablet by mouth twice daily. - cholecalciferol, vitamin D3, 50,000 unit tab Take 1 tablet by mouth once each week for 8 doses. - metFORMIN (GLUCOPHAGE) 500 mg tablet - Cholecalciferol, Vitamin D3, 5,000 unit cap - terbinafine HCl (LAMISIL) 250 mg tablet TAKE 1 TABLET BY MOUTH ONCE A DAY FOR 12 WEEKS - ibuprofen (MOTRIN) 800 mg tablet Take 800 mg by mouth every 6 hours as needed. No current facility-administered medications for this visit. ALLERGIES Allergen Reactions - Ciprofloxacin Unknown REVIEW OF SYSTEMS: GENERAL: feeling well without fatigue, no recent change in weight no type B symptoms. PHYSICAL EXAMINATION: VIDEO EXAM: (if completed, performed via video enabled technology) GENERAL: alert and appropriate, in no distress, well-hydrated, well nourished and happy, smiling, interactive ASSESSMENT: (E27.8) Adrenal mass greater than 4 cm in diameter (HCC) (primary encounter diagnosis) PLAN: We discussed in depth the implications of his heterogenous adrenal mass, in particular that it warrants surgical resection based on its size and internal heterogeneity and confluent Hounsfield units greater than 10. She understands she needs to undergo the ordered hormonal work-up to assure that there is no functional component of this. She also understands that her hormonal work-up will further help risk ratified the risk of cancer but will not completely rule it in a rule it out. She also understands that biopsy is not warranted in this scenario but that surgical resection is the recommended approach. I plan for her to undergo a 2-week liquid diet prior to surgery when she is already been instructed on because she is also undergoing a bariatric surgical work-up. She understands the importance of completing this procedure prior to her bariatric surgery because of the size and heterogeneity of the mass seen on CT scan. I spent a total of 43 minutes on the date of the service which included preparing to see the patient, [id number] patient care, completing clinical documentation, obtaining and/or reviewing separately obtained history, counseling and educating the patient/family/caregiver, communicating with other HCPs (not separately reported), independently interpreting results (not separately re (more content not included)... [facility] 11-15-2020 Note HNO ID: [id number] Author: Beba Avila RD Service: ? Author Type: Registered Dietitian Type: Progress Notes Filed: 11/15/2020 3:29 PM Note Text: [facility] Nutrition Therapy: Virtual Consult ? Re Assessment ? This visit was performed virtually due to the COVID-19 pandemic as an effort to protect patients and minimize exposure. Consent from patient received to conduct visit virtually. This Team Access Model visit is a virtual encounter.? It required patient-provider interaction for the medical decision making as documented below. ? PROGRESS: Nutrition Intervention (07/2020): Modify type and amount of food consumed for meals and snacks: 1.? Read Nutritional Guidelines Section of Your Guide to Surgery by next session:--not met Link to book as discussed: [email or web address] [email or web address] [email or web address] [email or web address] ? 2.? Do not skip meals - use protein shake 1x per day to replace any skipped meals or for breakfast --met 3.? Use the Healthy Plate Method of portion control for lunch and dinner? --met ? 4 oz lean meat (fish, chicken, pork tenderloin, turkey, seafood, eggs/cheese)? 1/2 plate non starchy vegetables (salad, greens, cabbage, spinach, brussels sprouts, broccoli,? carrots, celery, peppers, green beans, cauliflower) ? 1 cup starch/starchy vegetables (corn, peas, gonzalez beans, winter squash, sweet potato, potato, rice, pasta) 4.? Physical activity: aim for a goal of 150-250 minutes per week--not met, knee and hip pain ? - include both cardio and strength training 5.? Drink 64 ounces per day water.? Fluids should follow these guidelines:? No carbonation, no caffeine, no calories, no alcohol.? --met 6. Call the scheduling line at [phone] to schedule a May nutrition visit. As discussed, all follow-up appointments with the dietitian should be in a group class setting. --not met 7. You can have your weight obtained at a doctors visit and fax into the office for your file as we discussed. The fax number is: [phone].--not met ? Pre-op goal weight: 262 pounds Protein needs: 68-82 grams per day CHANGES IN TREATMENT: Patient met goal(s): partially ? Actions to implement interventions: Breakfast -?Rivero protein shake mixed with water Snack -?None Lunch -?Rivero protein shake mixed with water with either a soup or salad Snack -?None Dinner -?various proteins non-starchy vegetables and a small sweet serving such as halo top ice cream? 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 No extra walking due to hip and knee pain ? CLINICAL IMPRESSIONS: good ? Allergies: ALLERGIES ALLERGIES No Known Allergies ? Medications: CURRENT MEDICATIONS Current Outpatient Medications Medication Sig Dispense Refill - cholecalciferol, vitamin D3, 50,000 unit tab Take 1 tablet by mouth once each week for 8 doses. 4 tablet 1 - metFORMIN (GLUCOPHAGE) 500 mg tablet ? ? ? - Cholecalciferol, Vitamin D3, 5,000 unit cap ? ? ? - terbinafine HCl (LAMISIL) 250 mg tablet TAKE 1 TABLET BY MOUTH ONCE A DAY FOR 12 WEEKS ? 2 - ibuprofen (MOTRIN) 800 mg tablet Take 800 mg by mouth every 6 hours as needed. ? 3 ? No current facility-administered medications for this visit. PAST MEDICAL HISTORY No past medical history on file. PAST SURGICAL HISTORY No past surgical history on file. ? ANTHROPOMETRICS Height per patient: 5'2.4 Weight per patient: 273 lbs ? Educational materials provided: BMI Nutrition Guidelines ? Patient presents for follow up Virtual Consult to discuss pre op?LSG. Patient had visit in July with RD for initial consult. Since then she has tried to have consistent meals. She has been meeting her protein goals with shakes and protein almazan. She has been meeting hydration goals. She has not been exercising due to hip and knee pain. She recently found out she has a right adrenal mass which she will need to have removed prior to surgery. She has not had an in person weight done yet, but she is planning to do when she sees Dr. Ramirez this week. If she does not do it there, she reports she will have her PCP do it and have it faxed over.?She does report her weight today being 273 lbs, which is within 11 lbs of her pre op goal weight. Reiterated pre op goal weight to patient. See below. ? After session today, patient able to verbalize protein/fluid/exercise goals, recommendations for vitamin/minerals, use of protein shakes for meal replacement and for 2 week full liquid diet phase. Anticipate post op compliance. The patient meets NIH guidelines for weight loss surgery and has been thoroughly evaluated and educated on good dietary practices. Patient is capable of following these guidelines pre-and post-surgically. From nutrition nimisha (more content not included)... [facility] 11-13-2020 Note HNO ID: [id number] Author: Anila Silva RN Service: ? Author Type: Registered Nurse Type: Progress Notes Filed: 11/13/2020 2:07 PM Note Text: Spoke with pt- advised her that the CT findings do need to be worked up- next step is the board will review- Dr Nj to present- MRI to be considered based on their recommendations - she has a follow up appt scheduled with Dr Ramirez on Thu-- will convert it into a virtual so she doesn't have to take a day off work Anila Silva RN November 13, 2020 2:07 PM [facility] 07-22-2021 Note HNO ID: [id number] Author: Anila Silva RN Service: ? Author Type: Registered Nurse Type: Progress Notes Filed: 11/01/2020 12:37 PM Note Text: Spoke to pt - please fax CT order and lab order to her PCP- she will get it done locally- knoew she has to get the images to us prior to appt with Jeannedonnell [facility] 10-30-2020 Note HNO ID: [id number] Author: Saima Del Rosario, PhD Service: ? Author Type: Psychologist Type: Progress Notes Filed: 10/30/2020 11:03 AM Note Text: Consulted w/ Dr. Nj who indicated that the planned procedure is the sleeve. Thus, with one negative nicotine screen, she has completed all psychology requirements. Clearance letter submitted today. Saima Del Rosario, Ph.D. Psychologist [facility] 10-29-2020 Note HNO ID: [id number] Author: Saima Del Rosario, PhD Service: ? Author Type: Psychologist Type: Progress Notes Filed: 10/29/2020 10:22 AM Note Text: Received lab results from [facility] via fax (negative for nicotine on 10/23/20). OUTSTANDING REQUIREMENTS: *Continue to remain free of e-cigarettes *A series of negative nicotine screens are required by the BMI program: ?Depending on your chosen surgical procedure, you will need to be quit from all nicotine products (including nicotine replacement products such as patches or gums) for 1-6 months before moving forward with surgery. ? One screen has been completed so far (October 2020) ? After your first nicotine screen, continue nicotine screens every other month (add a reminder to your calendar because a reminder will not be sent by the BMI program, and missed screens are considered positive).? ? If you prefer to complete nicotine screens in your local area, have your PCP order screens using the frequency above, and?have results faxed to ATTN: Dr. Del Rosario at [phone] or e-mail to ? Reply to Dr. Del Rosario's [employer] message with an update about when/where screens are done Saima Del Rosario, Ph.D. Psychologist [facility] 10-25-2020 Note HNO ID: [id number] Author: Paul Nj MD Service: ? Author Type: Physician Type: Progress Notes Filed: 10/29/2020 4:12 PM Note Text: This is a virtual visit using HIPAA compliant video platform. It required patient-provider interaction for the medical decision making as documented below. Assessment ESTABLISHED PATIENT Jessica Dillard is a 55 year old female with morbid obesity. She returns for follow up after completing EGD to evaluate her esophagititis to discuss surgical options. EGD 10/19/2020 10:50 AM - [facility] Impression: ? ? ? - Gastroesophageal flap valve classified as Hill ? Grade II (fold present, opens with respiration). ? - Z-line irregular, 38 cm from the incisors. ? Biopsied. ? - Normal examined duodenum. ? - Biopsies were taken with a cold forceps for ? histology on the greater curvature of the ? gastric body, on the lesser curvature of the ? gastric body, at the incisura, on the greater ? curvature of the gastric antrum and on the ? lesser curvature of the gastric antrum. FINAL DIAGNOSIS 1. Stomach, body, biopsy (A) - Gastric antral-type mucosa with reactive gastropathy. - Separate fragment of gastric body-type mucosa with no diagnostic abnormality. 2. Esophagus, Z-line, biopsy (B) - Squamous mucosa with focal reactive epithelial changes suggestive of gastroesophageal reflux. - Gastric cardia-type mucosa with mild chronic inflammation, negative for intestinal metaplasia or dysplasia. IMPRESSION: Morbid obesity PLAN: Patient is following up back today to discuss regarding her options. She continues to have no symptoms of acid reflux. Her EGD noted mild esophagitis, she does take 40 mg daily of Protonix. She wants to only really consider the sleeve gastrectomy. Based on results of EGD, lack of any acid reflux symptoms, a sleeve gastrectomy is reasonable to consider. She can continue to the program and see me back when cleared. She is aware of the risk of significantly worsened acid reflux as well as need for conversion to a gastric bypass potentially with a sleeve. ? Continue bariatric pathway for sleeve. ? Patient also initially had imaging that noted an 5.3 cm adrenal nodule. Refer to Dr. Luis Alfredo Nj MD [facility] 10-17-2020 Note HNO ID: [id number] Author: Saima Del Rosario, PhD Service: ? Author Type: Psychologist Type: Progress Notes Filed: 10/17/2020 2:48 PM Note Text: [facility] Bariatric Behavioral Services Progress Note October 17, 2020 COST CENTER: [facility] BILLING CODE: Carin CPT Code: 9684979 Virtual Psychotherapy 16-37 minutes Time initiated session: 2:13 PM to 2:46 PM Date of First Session: 07/30/20 (initial evaluation) Session #: 3 Due to the [facility] and [facility] of emergency and the need for ongoing mental health services, the following visit was completed virtually to reduce the risk of COVID-19 exposure. Consent related to virtual visits was previously provided verbally after information was sent via [employer] or read to patient if MyChart not available. Collateral Parties Present: none. Physical location at time of appointment: Client's house ([facility], [address] [place] [address]) Subjective: The patient has been working on the following steps to prepare for surgery: 1) Started WW and mostly staying within point range 2) Quit e-cigarette use on September 10, 2020 3) Taking vitamins Previously noted concerns: ? Poor eating habits including graze eating (1-2x/week) and binge eating (1-2 x/month) ? Poor body image ? Nicotine use (which she had denied and later admitted) ? CPAP non-adherence Diet recall: Breakfast: banana and SF jello Snack:1-2 protein almazan (throughout the day) Lunch: 2 cups of skinny pop popcorn with raw vegetables Snack: 1/2 protein shake Dinner: cheeseburger or pork chop w/ raw vegetables and peaches Snack: Quest chips Graze eating: Yes, sometimes because feels hungry after not consuming enough at a meal Binge eating: None She was able to quit e-cigarettes by keeping them out of her car. She has had no cravings. Reviewed nicotine screening policy and she indicated she will be completing her first lab on either Thursday (at [facility]) or at an outside facility ([facility]) on Thursday. Her EGD will determine which surgery she will be having, and thus how many nicotine screens are needed. Interventions included: 1) Psychoeducation about lifestyle changes needed and risks of nicotine s/p surgery 2) Treatment planning Patient mood is: Good. Affect is: Appropriate. Objective: She checked in early for her virtual appt. Patient Data No recent patient-entered data was available. Assessment: Psychological Factors Affecting Morbid Obesity History of Nicotine Use Current Outpatient Medications Medication Sig - pantoprazole DR (PROTONIX) 40 mg tablet Take 1 tablet by mouth once daily. - cholecalciferol, vitamin D3, 50,000 unit tab Take 1 tablet by mouth once each week for 8 doses. - metFORMIN (GLUCOPHAGE) 500 mg tablet - Cholecalciferol, Vitamin D3, 5,000 unit cap - terbinafine HCl (LAMISIL) 250 mg tablet TAKE 1 TABLET BY MOUTH ONCE A DAY FOR 12 WEEKS - ibuprofen (MOTRIN) 800 mg tablet Take 800 mg by mouth every 6 hours as needed. No current facility-administered medications for this visit. Medication Changes: No change in medications Plan/Recommendations: 1) REQUIREMENTS FOR COMPLETING BEHAVIORAL HEALTH EVALUATION: *Continue to remain free of e-cigarettes *A series of negative nicotine screens are required by the BMI program: Depending on your chosen surgical procedure, you will need to be quit from all nicotine products (including nicotine replacement products such as patches or gums) for 1-6 months before moving forward with surgery. ? Go to any [facility] lab and submit your first nicotine screen. The order for these screens has been placed already, so you will just need to provide your name at the lab. ? After your first nicotine screen, continue nicotine screens every other month (add a reminder to your calendar because a reminder will not be sent by the BMI program, and missed screens are considered positive). ? If you prefer to complete nicotine screens in your local area, have your PCP order screens using the frequency above, and have results faxed to ATTN: Dr. Del Rosario at [phone] or e-mail to [email or web address] ? Reply to Dr. Del Rosario's [employer] message with an update about where you are doing your screens 2) The patient may benefit from the following during the surgery process: *CPAP adherence as indicated *implement exercise program such as warm water aerobics, walking, or exercise that can be done from a chair *read The Emotional First Aid Kit: A Practical Guide to Life After Bariatric Surgery by Estefany Reno *Follow up with psychology as an inpatient if needed *Follow up with psychology at 1, 3, 6, and 12 months postsurgery *Do not use alcohol, tobacco, and street drugs for 3 to 6 months prior to and after surgery. Ideas Discussed at Today's Visit: *Practice consuming protein shakes first *Continue food diaries; with attention to how to recon (more content not included)... [facility] 09-07-2020 Note HNO ID: [id number] Author: Saima Del Rosario, PhD Service: ? Author Type: Psychologist Type: Progress Notes Filed: 09/07/2020 4:21 PM Note Text: [facility] Bariatric Behavioral Services Progress Note September 07, 2020 COST CENTER: [facility] BILLING CODE: Carin CPT Code: [id number] Virtual Psychotherapy 38-52 minutes Time initiated session: 2:10 PM to 3:00 PM Date of First Session: 07/30/20 (initial evaluation) Session #: 2 Due to the [facility] and [facility] and the need for ongoing mental health services, the following visit was completed virtually to reduce the risk of COVID-19 exposure. Consent related to virtual visits was previously provided verbally after information was sent via [employer] or read to patient if [employer] not available. Collateral Parties Present: none. Location at time of appointment: Parked car outside of client's house ([address], [facility]) Subjective: The patient has been working on the following steps to prepare for surgery: 1) Started Chantix 2) Reduced carbs 3) Consuming protein shake w/ banana for breakfast 4) Eliminated sparkling water Previously noted concerns: ? Poor eating habits including graze eating (1-2x/week) and binge eating (1-2 x/month) ? Poor body image ? History of nicotine use (has not completed nicotine screen) ? CPAP non-adherence At her last visit, Ms. Dillard had indicated to this undersigned provider that she had quit e-cigarette use 2 years ago. However, today she stated that she is still smoking e-cigarettes (2 puffs/day), and has been for the past 7 months. She did not have an explanation for the discrepancy in her report. Reviewed requirements for nicotine cessation per BMI protocol, and it has yet to be determined whether she will be undergoing the LSG or RNY, as she has not yet scheduled the EGD. Reminded her to do so, and provided instructions for nicotine screening in her local area if she cannot drive to a [facility] lab. Discussed triggers for nicotine use, specifically habits (e.g., using her e-cigarette in the car). Regarding eating, she shared she has only lost 5 lbs, but she appears to have made several behavioral changes including eliminating binge and graze eating. However, she shared she continues to eat too late while watching TV in bed. Also, meals sometimes consist only of a small bag of Skinny pop popcorn. Interventions included: 1) Treatment planning- Reminded to complete nicotine screens, scheduled EGD, and schedule nutrition follow-up 2) Smoking cessation counseling 3) Motivational interviewing 4) Food monitoring Patient mood is: Unchanged since last session. Affect is: tearful. Objective: She checked in time for her virtual appt. Patient Data No recent patient-entered data was available. Assessment: Psychological Factors Affecting Morbid Obesity History of Nicotine Use Current Outpatient Medications Medication Sig - pantoprazole DR (PROTONIX) 40 mg tablet Take 1 tablet by mouth once daily. - cholecalciferol, vitamin D3, 50,000 unit tab Take 1 tablet by mouth once each week for 8 doses. - metFORMIN (GLUCOPHAGE) 500 mg tablet - Cholecalciferol, Vitamin D3, 5,000 unit cap - terbinafine HCl (LAMISIL) 250 mg tablet TAKE 1 TABLET BY MOUTH ONCE A DAY FOR 12 WEEKS - ibuprofen (MOTRIN) 800 mg tablet Take 800 mg by mouth every 6 hours as needed. No current facility-administered medications for this visit. Medication Changes: No change in medications Plan/Recommendations: 1) REQUIREMENTS FOR COMPLETING BEHAVIORAL HEALTH EVALUATION: *Quit e-cigarettes *A series of negative nicotine screens are required by the BMI program: Depending on your chosen surgical procedure, you will need to be quit from all nicotine products (including nicotine replacement products such as patches or gums) for 1-6 months before moving forward with surgery. ? Once you have been free of nicotine for at least 1 month, go to any [facility] lab and submit your first nicotine screen. The order for these screens has been placed today, so you will just need to provide your name at the lab. ? After your first nicotine screen, continue nicotine screens every other month (add a reminder to your calendar because a reminder will not be sent by the BMI program, and missed screens are considered positive). ? If you prefer to complete nicotine screens in your local area, have your PCP order screens using the frequency above, and have results faxed to ATTN: Dr. Del Rosario at [phone] *Follow up w/ Dr. Del Rosario 10/17 at 2:15 (virtual) Reminder to schedule a follow-up appointment with nutrition as well (Appointment scheduling number: [phone]). 2) The patient may benefit from the following during the surgery process: *CPAP adherence as indicated *implement exercise program such as warm water aerobics, walking, or exercise that ca (more content not included)... [facility] 08-24-2020 Note HNO ID: [id number] Author: Paul Nj MD Service: ? Author Type: Physician Type: Progress Notes Filed: 08/24/2020 3:54 PM Note Text: This is a virtual visit using HIPAA compliant video platform. It required patient-provider interaction for the medical decision making as documented below. Assessment NEW BARIATRIC PATIENT PATIENT NAME: Jessica Dillard REASON FOR CONSULT: Morbid Obesity REQUESTING PHYSICIAN: CAROLANN DATE of SERVICE: 08/24/2020 TIME of SERVICE: 8:35 AM PCP: No primary care provider on file. CC: Morbid Obesity HPI: Ms. Dillard is a 55 year old female who is referred for evaluation for Bariatric surgery. Patient does not have any specific complaints today. Patient's obesity related chronic medical conditions include: Diabetes: Prediabetic (on diet) HgbA1C 6.2 Hypertension: No Hyperlipedemia:No OA:No NEREIDA: Yes DVT/PE:No Anxiety/depression:No Urinary incontinence: Yes Gastroesophageal reflux: No EGD: Yes. Her EGD in 2019 at [facility] noted grade 2 esophagitis and healed ulcers in her stomach. She was prescribed PPI which she quit 2 months after. She is planning to restart her PPI today. She continues not to have any symptoms of acid reflux. Patient is inclined towards: sleeve gastrectomy History of abdominal surgeries: No PAST MEDICAL HISTORY: No past medical history on file. PAST SURGICAL HISTORY: No past surgical history on file. SOCIAL HISTORY: Social History Tobacco Use - Smoking status: Light Tobacco Smoker - Smokeless tobacco: Never Used Substance Use Topics - Alcohol use: Not on file - Drug use: Not on file ALLERGIES: ALLERGIES No Known Allergies FAMILY HISTORY: Noncontributory No family history on file. MEDICATIONS: Prior to Admission Medications: cholecalciferol, vitamin D3, 50,000 unit tab Take 1 tablet by mouth once each week for 8 doses. metFORMIN (GLUCOPHAGE) 500 mg tablet Cholecalciferol, Vitamin D3, 5,000 unit cap terbinafine HCl (LAMISIL) 250 mg tablet TAKE 1 TABLET BY MOUTH ONCE A DAY FOR 12 WEEKS ibuprofen (MOTRIN) 800 mg tablet Take 800 mg by mouth every 6 hours as needed. No current facility-administered medications for this visit. FAMILY HISTORY: No family history on file. COMPLETE REVIEW OF SYSTEMS Constitutional--Negative for fevers, chills, fatigue. Cardiovascular--Negative for orthopnea, PND Gastrointestinal--See HPI Pulmonary--Negative for intermittent dyspnea cough or hemoptysis : No history of dysuria, frequency or incontinence A complete review of systems was otherwise negative PHYSICAL EXAMINATION: Virtual IMPRESSION Morbid Obesity PLAN: Patient is a very pleasant 55 year old with morbid obesity, patient of No primary care provider on file. with a BMI of 51. Patient is here today seeking information regarding weight loss. Patient's chronic medical issue associated with obesity includes prediabetes, possibly obstructive sleep apnea. She also has grade 2 esophagitis on a recent endoscopy although she does not have any symptomatic acid reflux. She has not been on PPIs for a while. She is not aware of which PPI she was prescribed. She will start her PPI today and will also send me a [employer] message with this the dose of the medication. We have planned an endoscopy 4 months after she starts her PPI with Dr. Ramirez to get a proper evaluation of the degree of her esophagitis. She is still strongly prefers to have a sleeve gastrectomy and is aware of significant worsening of reflux issues after a sleeve. We will make further management recommendations based on results of the EGD. I have discussed with patient regarding peoperative goal weight prior to liquid fast: Per mint wafer depositor lbs Surgically Cleared with completion of the below: 1) Pre op EGD needed: Yes 2) Consult- No. We will have to discuss whether a sleeve is appropriate after endoscopy has been done. Patient will continue through the program and will come back to me prior to planned surgery for discussion regarding options and pre op teaching. I spent approximately 45 minutes with the patient but most of the time spent in counseling. This office note will be sent to the referring provider via electronic medical record and US mail, Paul Nj MD [facility] 08-09-2020 Note HNO ID: [id number] Author: Stella Pike MD Service: ? Author Type: Physician Type: Progress Notes Filed: 01/12/2021 7:59 PM Note Text: This Team Access Model visit is a virtual encounter. It required patient-provider interaction for the medical decision making as documented below. Both audio and visual components utilized for this visit. Consent from patient received to conduct visit using telehealth. This visit was performed virtually due to the COVID-19 pandemic as an effort to protect patients and minimize exposure. CC/HPI: 55 year old lady presents for follow up evaluation-last seen 2018; re-establishing to continue down the surgical pathway. 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 Just got an injection in her hip. 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 OTHER: -08/02/2020-OV Nutrition/Jing -07/30/2020-OV Goodpaster -08/20/2018 OV BMI/Gorty MEDS: See Epic Patient-reported medications: -ibuprofen, tylenol prn -has not been taking the metformin (borderline diabetes) -no h/o CT, CHF, no heart problem PMH: -DM2-on metformin- -Vit D3 deficiency -almost finished with the Lamisil by next week -no CT, CAD, CHF, CVA -h/o bronchitis/ and double pneumonia a year ago; smokes an e cigarette on occasion For women: control method: PSHX: -breast 12-15 years ago -hip replacement 4-5 years ago No past medical history on file. cholecalciferol, vitamin D3, 50,000 unit tab Take 1 tablet by mouth once each week for 8 doses. metFORMIN (GLUCOPHAGE) 500 mg tablet Cholecalciferol, Vitamin D3, 5,000 unit cap terbinafine HCl (LAMISIL) 250 mg tablet TAKE 1 TABLET BY MOUTH ONCE A DAY FOR 12 WEEKS ibuprofen (MOTRIN) 800 mg tablet Take 800 mg by mouth every 6 hours as needed. ALLERGIES No Known Allergies PHYSICAL EXAMINATION: Wt 127.5 kg (281 lb) BMI 50.74 kg/m? General: alert and appropriate, in no distress, well-hydrated, well nourished, happy, smiling, interactive and pleasant Skin: no rash noted Eyes: no injection, visual acuity is grossly normal and EOMI Respiratory: breathing non-labored REVIEW OF SYSTEMS Non-remarkable except for what is noted in HPI and/or Assessment/plan ASSESSMENT: Reviewed principles of energy metabolism, caloric intake and expenditure, and rationale for treatment program. Also reinforced need for reduced calorie, low fat diet and increased physical Activity. 1)Morbid obesity -check the presurgical labs, CXR, EKG and abd us -she is asking about phentermine prescription-last prescribed about 6 months ago (by Dr. An)-she will resume phentermine with Dr. An, given that he has prescribed it to her before -she would prefer to have the testing locally and results faxed over. -Dr. An-office [phone] 2)NEREIDA-she had testing done, and it was abnormal. She had the testing done with [facility] (ordered by Dr. An) -she got on cpap and is using the machine-will request the record Stella Pike MD I spent a total of about 40 minutes on the date of the service which included preparing to see the patient, obtaining and/or reviewing separately obtained history, counseling and educating the patient/family/caregiver, ordering medications, tests, or procedures and care coordination (not separately reported). - January 12, 2021 ADDENDUM: Results reviewed. Labs remarkable for -low Vit D/elevated PtH-escript sent -elevated cholesterol-adv to f/u c pcp [facility] 08-02-2020 Note HNO ID: [id number] Author: Deborah Ch Service: ? Author Type: Registered Dietitian Type: Progress Notes Filed: 08/03/2020 5:59 AM Note Text: [facility] Nutrition Therapy: Virtual Consult ? Initial Assessment This visit was performed virtually due to the COVID-19 pandemic as an effort to protect patients and minimize exposure. Consent from patient received to conduct visit virtually. This Team Access Model visit is a virtual encounter. It required patient-provider interaction for the medical decision making as documented below. 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) Additional Activity: Lightly active (Light exercise: planned physical activity 1-3 days/week) Diet History: Breakfast - skips Snack - popcorn OR vegetables Lunch - leftovers from the night before OR soup OR a salad Snack - none Dinner - various proteins, starches and non-starchy veggies OR pasta dishes OR chili Snack - None Beverages - 1 cup coffee in am, water throughout the day (120 ounces), small amounts of carbonated water Allergies: ALLERGIES No Known Allergies Medications: Current Outpatient Medications Medication Sig Dispense Refill - cholecalciferol, vitamin D3, 50,000 unit tab Take 1 tablet by mouth once each week for 8 doses. 4 tablet 1 - metFORMIN (GLUCOPHAGE) 500 mg tablet - Cholecalciferol, Vitamin D3, 5,000 unit cap - terbinafine HCl (LAMISIL) 250 mg tablet TAKE 1 TABLET BY MOUTH ONCE A DAY FOR 12 WEEKS 2 - ibuprofen (MOTRIN) 800 mg tablet Take 800 mg by mouth every 6 hours as needed. 3 No current facility-administered medications for this visit. No past medical history on file. No past surgical history on file. ANTHROPOMETRICS Height per patient: 5'2.4 Weight per patient: 277 lbs Most recent height and weight per EPIC Height: Last 1 Encounter Ht Readings: Date: Ht: 08/02/2020 158.5 cm (5' 2.4 ) Weight: Last 1 Encounter Wt Readings: Date: Wt: 08/02/2020 125.6 kg (277 lb) Body mass index is 50.02 kg/m?. Educational materials provided: BMI Nutrition Guidelines Patient presents for initial nutrition Virtual Consult to discuss initial consultation pre op LSG. Height and weight obtained this day showing BMI of 50.02, classified as class 3 severe obesity. Other PMHx significant for Pre-DM and HTN. No new labs to review at this time. Patient has a good understanding of the surgery and necessary changes needed to be made prior to surgery. *Of note, pt started the BMI weight loss surgery path in 2019, was cleared for such but stated she had changed her mind at the time. Weight loss expectations are realistic; expecting to lose 77 lbs (50 %EBW). Motivation for surgery includes improvement in overall health, decreased pain in her knees and hips, and avoidance of hip surgery in the future due to excess weight. Previous diet attempts include Weight Watchers, self-directed diets and weight loss medications. Diet recall reveals an inconsistent meal pattern with frequently missed meals, as well as intakes of larger portions/calorically dense foods all likely contributing to lack of desired weight loss/contributing to weight gain over time. Fluids mostly eeting recommendations in type and amount, with water as primary beverage. Pt is not incorporating consistent physical activity at this time and would likely benefit from increased structured activity to assist in achieving goals as tolerated with current knee and hip pain. See all interventions/recommendations discussed during visit this day. Initial weight: 277 lbs. [employer] body weight is 125 lbs. Excess body weight is 152 lbs. Goal weight pre-op is 262 lbs. Protein needs are estimated at 68-82 gm (Based on 1.2 - 1.5 g protein/kg IBW) Patient meets the National Institutes of Health guidelines for weight loss surgery and has [employer] therefore is required to complete 0 months of Nutrition Intervention for clearance for surgery; however, would like to see pt demonstrate consistent effort in making dietary changes before giving nutritional clearance with goals of weight loss. It is anticipated that the patient will need at least 1-3 nutritional follow-up visits prior to clearance for surgery. Today is visit 1. Nutrition Diagnosis: Overweight/obesity, related to, excess energy intake and food/nutrition - related knowledge deficit, as evidenced by BMI above normative standard for age and gender. Nutrition Intervention: Modify type and amount of food consumed for meals and snacks: 1. Read Nutritional Guidelines Section of Your Guide to Surgery by next session: Link to book as discussed: https://my.[facility].org/-/ scassets/files/org/bariatric/guid es/bmigui debook-september2019.ashx?la=en 2. Do not skip meals - use protein shake 1x per day to replace any sk (more content not included)... [facility] 07-30-2020 Note HNO ID: [id number] Author: Saima (Phd) Carin Service: ? Author Type: Psychologist Type: Progress Notes Filed: 07/30/2020 12:07 PM Note Text: [facility] BEHAVIORAL HEALTH EVALUATION DATE OF SERVICE: July 30, 2020 TIME OF SERVICE: 10:55-12:05pm COST CENTER: [facility] CPT CODE: [id number] Virtual Psych Diagnostic Eval BILLING CODE: ENDO PSYL MAIN Carin SESSION #: 1 Due to the [facility] and the need for ongoing mental health services, the following visit was completed virtually to reduce the risk of COVID-19 exposure. Consent to virtual visits was provided verbally after information was sent via [employer] or read to patient if MyChart not available. Likewise, patient provided verbal consent to information outlined on The Informed Consent for Psychological Evaluation AND Care Form, including the behavioral health care insurance benefits, fees for service, emergency procedures, and the limits of confidentiality. This consent form was sent to [employer] or read to patient if MyChart was unavailable. Location at time of appointment: [address] [place] [address] in a parked car outside of her client's house. IDENTIFYING INFORMATION Ms. Jessica Dillard is a 55 year old female. She was referred by Dr. Nj. Ms. Dillard is seeking gastric sleeve for morbid obesity. Ms. Dillard was previously evaluated by the undersigned psychologist on 10/01/18, at which time she was noted to have significant stress, e-cigarette use, and an expectation that surgery would improve body image. She was required to submit a negative nicotine screen prior to approval for surgery, but never did so, and was lost to follow-up after completing nutrition requirements. Today, she explained that she fell out of the bariatric program because the timing was bad (patient was in the process of gaining custody of her grandson). Where information is drawn from the 2019 evaluation, text will be italicized. COLLATERAL PARTIES PRESENT: none. MOTIVATION FOR SURGERY / UNDERSTANDING OF PROCEDURE / EXPECTATIONS: Ms. Dillard notes she is motivated for surgery by wanting to improve her health for her grandson. The patient has a good understanding of the surgery, risks, and benefits. She has talked with other people who have undergone the procedure. Her niece and nephew had bariatric surgery. One did well, and the other developed serious complications. In addition, her friend recent underwent bariatric surgery. Specific areas of understanding that should be addressed include body image changes s/p bariatric surgery. The patient expects to lose 76 lbs. following surgery over 6 months. Other expectations include decreased pain, avoid a hip surgery, and improved health. Educated patient regarding expected weight loss after surgical procedure and timeline of weight loss/surgery recovery. CAPACITY TO CONSENT: Ms. Dillard evidences the following concerns regarding capacity to consent: none noted. MEDICAL PROBLEMS There is no problem list on file for this patient. Past surgeries? Yes No past surgical history on file. History of psychological complications post-surgery? No MEDICATIONS Current Outpatient Medications Medication Sig - cholecalciferol, vitamin D3, 50,000 unit tab Take 1 tablet by mouth once each week for 8 doses. - metFORMIN (GLUCOPHAGE) 500 mg tablet - Cholecalciferol, Vitamin D3, 5,000 unit cap - terbinafine HCl (LAMISIL) 250 mg tablet TAKE 1 TABLET BY MOUTH ONCE A DAY FOR 12 WEEKS - ibuprofen (MOTRIN) 800 mg tablet Take 800 mg by mouth every 6 hours as needed. No current facility-administered medications for this visit. Medications were reviewed with patient. The patient is not currently taking any psychotropic medications. ALLERGIES ALLERGIES No Known Allergies EATING/WEIGHT HISTORY: Ms. Dillard was overweight as a child. Her weight at age 17 was 200 lbs. The patient reports the following factors as contributing to weight gain: learning the clean your plate mentality in childhood, boredom eating in childhood, and comfort eating in the context of her son's drug addiction. The patient reports a family history of obesity. Today, she added other barrier to weight managements: cooking for her family during the COVID-19 pandemic, inactivity due to pain, and large portions at night due to not eating enough during the day. The patient's current weight is 276 lbs. Her BMI is 49. She has maintained her weight since her previous participation in the BMI program. The patient has tried weight loss strategies in the past including: Self-directed diets, anti-obesity medication, and Weight Watchers The patient denies a history of laxative/diuretic use. The patient denies a history of vomiting to lose weight. The patient denies a history of an eating disorder. She has not had treatment for eating disorders in t (more content not included)... [facility] Evaluation note Diagnosis Unilateral primary osteoarthritis, right hip documented in this encounter [facility] Discharge instructions* Attachments The following attachments cannot be sent through Care Everywhere. * Hip Replacement: Total: General Info (Irish) * Fall Prevention (Irish) [facility]* Auth/Cert Specialty Diagnoses / Procedures [facility] Referred To Contact Diagnoses Unilateral primary osteoarthritis, right hip M16.11 Procedures LA ARTHROPLASTY ACETABULAR AND PROXIMAL FEMORAL PROSTHETIC REPLACEMENT (TOTAL HIP ARTHROPLASTY) WITH OR WITHOUT AUTOGRAFT OR ALLOGRAFT LA ARTHROPLASTY ACETABULAR AND PROXIMAL FEMORAL PROSTHETIC REPLACEMENT (TOTAL HIP ARTHROPLASTY) WITH OR WITHOUT AUTOGRAFT OR ALLOGRAFT Right total hip arthoplasty Wyatt Houston MD [address] [facility] [address] [place] [address] Referral ID Status Reason Start Date Expiration Date Visits Re quested Visits Authorized [id number] 07/01/2021 1 1 [facility] [address] Summary Purpose Family History No Family History Records FoundNo Family History Records FoundNo Family History Records FoundNo Family History Records FoundNo Family History Records FoundNo Family History Records FoundNo Family History Records Found Advance Directives No Advanced Directives Records FoundDocuments on File Type Date Recorded 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 Advance Directive(s) 03/13/2021 11:32 AM Advance Directive(s) 12/03/2020 2:46 PM Advance Directive(s) 10/05/2020 8:41 AM Documents on File Type Date Recorded 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 Power of Vice President [employer] Procedure Findings Note Patient: JESSICA DILLARD MRN: [id number] Age: 53 years Sex: Female : 1965 Associated Diagnoses: None Author: Aury Metz Results Review Original Procedure Date 10/18/2018 Revised repeat colonoscopy interval 5 years Adenomatous polyp(s) present No Adenocarcinoma present No Serrated lesion(s) present No Hyperplastic polyp(s) present Yes Additional Source Comments INFORMATION SOURCE (unrecogn ized section and content) DATE CREATED AUTHOR 02/03/2019 Seamus Mcintosh [facility] DATE CREATED AUTHOR AUTHOR'S ORGANIZ ATION 07/08/2020 [facility] DATE CREATED AUTHOR AUTHOR'S ORGANIZ ATION 03/26/2021 [facility] DATE CREATED AUTHOR AUTHOR'S ORGANIZ ATION 04/11/2021 [facility] DATE CREATED AUTHOR AUTHOR'S ORGANIZ ATION 05/22/2021 [facility] DATE CREATED AUTHOR AUTHOR'S ORGANIZ ATION 08/29/2021 [facility] DATE CREATED AUTHOR AUTHOR'S ORGANIZ ATION 07/26/2022 [facility] Source Comments (unrecognize d section and content) In the event this informatio n is protected by the Federal Confidentiality of Alcohol and Drug Abuse Patient Records regulations: The Federal rules restrict any use of the information to criminally investigate or prosecute any alcohol or drug abuse patient.[facility] Reason for Visit (unrecogniz ed section and content) Reason Onset Date Comments Refill Request 07/14/2021 Care Teams (unrecognized sec tion and content) Double Cutter Relationship Specialty Start Date End Date Yaneth An MD [address] [place] [address] PCP - General Family Practice 10/05/20 Double Cutter Relationship Specialty Start Date End Date Yaneth An MD [address] [place] [address] PCP - General Family Medicine 08/05/21 Ordered Prescriptions (unrec ognized section and content) Prescription Sig Dispensed Refills Start Date End Da te HYDROmorphone (DILAUDID) 2 mg tablet Take 1 tablet (2 mg total) by mouth every 3 (three) hours if needed for severe pain for up to 3 days. Dx: Z96.6 Max Daily Amount: 16 mg 10 tablet 0 08/28/2021 08/31/2021 cephalexin (KEFLEX) 500 mg capsule Take 1 capsule (500 mg total) by mouth every 8 (eight) hours for 3 doses. 3 each 0 08/28/2021 08/29/2021 rivaroxaban (XARELTO) 10 mg tablet Take 1 tablet (10 mg total) by mouth 1 (one) time each day for 14 days. Take with food. If insurance does not cover or other patient barriers exist, then change to: Lovenox 40 mg subcutaneous inj. Daily, Disp #14 14 each 0 08/29/2021 09/12/2021 ondansetron ODT (ZOFRAN-ODT) 4 mg dispersible tablet Dissolve 1 tablet (4 mg total) on top of the tongue every 8 (eight) hours if needed for nausea or vomiting for up to 7 days. 15 tablet 0 08/28/2021 09/04/2021 aspirin 81 mg chewable tablet Chew 1 tablet (81 mg total) 2 (two) times a day for 28 days. Aspirin 81 mg, 1 tab PO BID for 6 weeks, Disp appropriate quantity. If patient is prescribed Arixtra/Lovenox/Xarel to, do not begin Aspirin until that medication is finished, then only take Aspirin for 4 weeks. 56 each 0 09/12/2021 10/10/2021 oxyCODONE (ROXICODONE) 5 mg immediate release tablet Take 1-2 tablets (5-10 mg total) by mouth every 4 (four) hours if needed for moderate pain or severe pain for up to 7 days. Dx: Z96.6 Max Daily Amount: 60 mg 40 tablet 0 08/28/2021 09/04/2021 traMADoL (ULTRAM) 50 mg tablet Take 1-2 tablets (50-100 mg total) by mouth every 6 (six) hours if needed for moderate pain for up to 13 days. Dx: Z96.6 Max Daily Amount: 400 mg 100 tablet 0 08/28/2021 09/10/2021 celecoxib (CeleBREX) 200 mg capsule Take 1 capsule (200 mg total) by mouth 1 (one) time each day. If prior authorization is required, do not fill. 30 each 0 08/28/2021 09/27/2021 acetaminophen (TYLENOL) 500 mg tablet Take 2 tablets (1,000 mg total) by mouth 3 (three) times a day for 7 days. Do not exceed 3,000 mg daily limit. 50 tablet 0 08/28/2021 09/04/2021 Scheduled Active and Recently Administ ered Medications (unrecognized section and content) Medication Order 08/26/2021 08/27/2021 08/28/2021 acetaminophen (TYLENOL) tablet 1,000 mg 1,000 mg, oral, Every 6 hours scheduled, First dose on Thu08/28/21 at 1800, Phase II/On Unit 1800 (Canceled Entry - Provider: Automatic Discharge Provider - Comment: Automatically canceled at discontinue of medication order) acetaminophen (TYLENOL) tablet 650 mg 650 mg, oral, Once, On Thu08/28/21 at 1500, For 1 dose, Recovery (only) 1438 (Hold - Provide r: Ellie Fleming RN - Reason: Other - Comment: two percocet given, see MAR) ceFAZolin (ANCEF) 2 gram/20 mL IV syringe 2 g (COMPLETED) 2 g, intravenous, Administer over 3 Minutes, Once, On Thu08/28/21 at 1115, For 1 dose, Preprocedure, Indication: Prophylaxis-Surgical 1314 (Given - Provid er: ISAAC Sharma) ceFAZolin (ANCEF) 2 gram/20 mL IV syringe 2 g 2 g, intravenous, Administer over 3 Minutes, Every 8 hours, First dose on Thu08/28/21 at 2200, For 2 doses, Phase II/On Unit, Indication: Prophylaxis-Surgical celecoxib (CeleBREX) capsule 200 mg 200 mg, oral, Daily, First dose on Fatou 08/29/21 at 0900, Phase II/On Unit dexamethasone (DECADRON) injection 10 mg 10 mg, intravenous, Once, On Thu08/28/21 at 1115, For 1 dose, Preprocedure 1115 (Canceled Entry - Provider: Automatic Discharge Provider - Comment: Automatically canceled at discontinue of medication order) lactated Ringer's infusion (COMPLETED) 100 mL/hr, intravenous, Once, On Thu08/28/21 at 1115, For 1 dose, Preprocedure 1252 (New Bag - Prov ider: ISAAC Sharma)1257 (Paused - Provider: ISAAC Sharma - Comment: Switch to gravity)1258 (Restarted - Provider: ISAAC Sharma)1412 (Anesthesia Volume Adjustment - Provider: ISAAC Sharma)1426 (Anesthesia Volume Adjustment - Provider: ISAAC Sharma) lidocaine PF (XYLOCAINE) 1 % injection 0.2 mL 0.2 mL, intradermal, Once, On Thu08/28/21 at 1115, For 1 dose, Preprocedure 1115 (Canceled Entry - Provider: Automatic Discharge Provider - Comment: Automatically canceled at discontinue of medication order) rivaroxaban (XARELTO) tablet 10 mg 10 mg, oral, Daily with dinner, First dose on Fatou 08/29/21 at 1700, For 14 days, Phase II/On Unit, Indication: VTE/PE Prophylaxis sodium chloride 0.9 % flush 10 mL(Linked Group 1) 10 mL, intravenous, 2 times daily, First dose on Thu08/28/21 at 2100, Phase II/On Unit tranexamic acid (CYKLOKAPRON) injection 1,000 mg (COMPLETED) 1,000 mg, intravenous, Administer over 10 Minutes, Once, On Thu08/28/21 at 1115, For 1 dose, Preprocedure, Not to exceed 100 mg (1 mL) per minute., Tranexamic Acid Indication: Surgical Prophylaxis: Orthopedic 1310 (Given - Provid er: ISAAC Sharma) Continuous Medication Order 08/26/2021 08/27/2021 08/28/2021 lactated Ringer's infusion 100 mL/hr, intravenous, Continuous, Starting on Thu08/28/21 at 1700, Phase II/On Unit 1700 (Canceled Entry - Provider: Automatic Discharge Provider - Comment: Automatically canceled at discontinue of medication order) lactated Ringer's infusion 100 mL/hr, intravenous, Continuous, Starting on Thu08/28/21 at 1500, Recovery (only) 1434 (New Bag - Prov ider: Ellie Fleming RN) PRN Medication Order 08/26/2021 08/27/2021 08/28/2021 EPINEPHrine (ADRENALIN) injection (CANCELED) As needed, Starting on Thu08/28/21 at 1401, Intraprocedure 1401 (Given - Provid er: Wyatt Tapia MD - Comment: right hip) HYDROmorphone (DILAUDID) injection 0.5 mg 0.5 mg, intravenous, Every 5 min PRN, severe pain, Starting on Thu08/28/21 at 1430, For 5 doses, Recovery (only) 1433 (Given - Provid er: Ellie Fleming RN)1450 (Given - Provider: Ellie Fleming RN)1506 (Given - Provider: Ellie Fleming RN) meperidine (DEMEROL) 50 mg/mL injection 12.5 mg 12.5 mg, intravenous, Every 15 min PRN, rigors, shivering, Starting on Thu08/28/21 at 1430, For 4 doses, Recovery (only) ondansetron (PF) (ZOFRAN) injection 4 mg(Linked Group 2) 4 mg, intravenous, Every 8 hours PRN, vomiting, nausea, Starting on Thu08/28/21 at 1430, Recovery (only), -ONLY give IV if patient is unable to take orally. -If inadequate response within 30 minutes, proceed to next-line agent or contact provider if no further options ordered. ondansetron ODT (ZOFRAN-ODT) dispersible tablet 4 mg(Linked Group 2) 4 mg, oral, Every 8 hours PRN, vomiting, nausea, Starting on Thu08/28/21 at 1430, Recovery (only), -Give IV if patient is unable to take orally. -If inadequate response within 30 minutes, proceed to next-line agent or contact provider if no further options ordered. For ODT tablets: -Do not remove from blister pack until just before administering. -Patient should allow tablet to dissolve on tongue. oxyCODONE (ROXICODONE) immediate release tablet 5 mg 5 mg, oral, Every 4 hours PRN, Breakthrough pain, Starting on Thu08/28/21 at 1639, Phase II/On Unit, May consider scheduled oxyCODONE instead of PRN oxyCODONE-acetaminophen (PERCOCET) 5-325 mg per tablet 2 tablet 2 tablet, oral, Every 4 hours PRN, severe pain, Starting on Thu08/28/21 at 1430, For 2 doses, Recovery (only) 1436 (Given - Provid er: Ellie Fleming RN) prochlorperazine (COMPAZINE) injection 10 mg(Linked Group 3) 10 mg, intravenous, Every 6 hours PRN, nausea, vomiting, Starting on Thu08/28/21 at 1430, Recovery (only), 2nd Line Option: -ONLY give IV if patient is unable to take orally. -Give IM if patient does not have IV Access -If inadequate response within 30 minutes, proceed to next-line agent or contact provider if no further options ordered. prochlorperazine (COMPAZINE) suppository 25 mg(Linked Group 3) 25 mg, rectal, Every 12 hours PRN, nausea, vomiting, Starting on Thu08/28/21 at 1430, Recovery (only), 2nd Line Option: -ONLY give LA if patient is unable to take orally and cannot receive IV/IM. -If inadequate response within 30 minutes, proceed to next-line agent or contact provider if no further options ordered. prochlorperazine (COMPAZINE) tablet 10 mg(Linked Group 3) 10 mg, oral, Every 6 hours PRN, nausea, vomiting, Starting on Thu08/28/21 at 1430, Recovery (only), 2nd Line Option: -Give IV or IM if patient is unable to take orally. -If inadequate response within 30 minutes, proceed to next-line agent or contact provider if no further options ordered. ropivacaine (NAROPIN) 0.5 % injection (CANCELED) As needed, Starting on Thu08/28/21 at 1401, Intraprocedure 1401 (Given - Provid er: Wyatt Tapia MD - Comment: right hip) sodium chloride 0.9 % flush 10 mL(Linked Group 1) 10 mL, intravenous, As needed, line care, Starting on Thu08/28/21 at 1639, Phase II/On Unit sodium chloride 0.9 % irrigation solution (CANCELED) As needed, Starting on Thu08/28/21 at 1402, Intraprocedure 1402 (Given - Provid er: Wyatt Tapia MD - Comment: right hip) vancomycin (VANCOCIN) vial for injection (CANCELED) As needed, Starting on Thu08/28/21 at 1402, Intraprocedure 1402 (Given - Provid er: Wyatt Tapia MD - Comment: right hip) Linked Groups Order Group 1: Insert peripheral IV (CANCELED) STAT, Once, On Thu08/28/21 at 1640, For 1 occurrence
Phase II/On Unit And Maintain IV access (CANCELED) Until discontinued, Starting on Thu08/28/21 at 1640, Until Specified
Phase II/On Unit And Saline lock IV (CANCELED) Routine, Once, On Thu08/28/21 at 1640, For 1 occurrence
When tolerating PO fluids, Phase II/On Unit And sodium chloride 0.9 % flush 10 mLJump to med 10 mL, intravenous, 2 times daily, First dose on Thu08/28/21 at 2100, Phase II/On Unit And sodium chloride 0.9 % flush 10 mLJump to med 10 mL, intravenous, As needed, line care, Starting on Thu08/28/21 at 1639, Phase II/On Unit Group 2: ondansetron ODT (ZOFRAN-ODT) dispersible tablet 4 mgJump to med 4 mg, oral, Every 8 hours PRN, vomiting, nausea, Starting on Thu08/28/21 at 1430, Recovery (only)
-Give IV if patient is unable to take orally. -If inadequate response within 30 minutes, proceed to next-line agent or contact provider if no further options ordered. For ODT tablets: -Do not remove from blister pack until just before administering. -Patient should allow tablet to dissolve on tongue.
Or ondansetron (PF) (ZOFRAN) injection 4 mgJump to med 4 mg, intravenous, Every 8 hours PRN, vomiting, nausea, Starting on Thu08/28/21 at 1430, Recovery (only)
-ONLY give IV if patient is unable to take orally. -If inadequate response within 30 minutes, proceed to next-line agent or contact provider if no further options ordered.
Group 3: prochlorperazine (COMPAZINE) tablet 10 mgJump to med 10 mg, oral, Every 6 hours PRN, nausea, vomiting, Starting on Thu08/28/21 at 1430, Recovery (only)
2nd Line Option: -Give IV or IM if patient is unable to take orally. -If inadequate response within 30 minutes, proceed to next-line agent or contact provider if no further options ordered.
Or prochlorperazine (COMPAZINE) injection 10 mgJump to med 10 mg, intravenous, Every 6 hours PRN, nausea, vomiting, Starting on Thu08/28/21 at 1430, Recovery (only)
2nd Line Option: -ONLY give IV if patient is unable to take orally. -Give IM if patient does not have IV Access -If inadequate response within 30 minutes, proceed to next-line agent or contact provider if no further options ordered.
Or prochlorperazine (COMPAZINE) suppository 25 mgJump to med 25 mg, rectal, Every 12 hours PRN, nausea, vomiting, Starting on Thu08/28/21 at 1430, Recovery (only)
2nd Line Option: -ONLY give LA if patient is unable to take orally and cannot receive IV/IM. -If inadequate response within 30 minutes, proceed to next-line agent or contact provider if no further options ordered.
FOR RECORDS PERTAINING TO PATIENTS WHO ARE OR HAVE BEEN ENROLLED IN A CHEMICAL DEPENDENCY/SUBSTANCEABUSE PROGRAM, SOME INFORMATION MAY BE OMITTED. This clinical summary was aggregated from multiple sources. Caution should be exercised in using it in the provision of clinical care. This summary normalizes information from multiple sources, and as a consequence, information in this document may materially change the coding, format and clinical context of patient data. In addition, data may be omitted in some cases. CLINICAL DECISIONS SHOULD BE BASED ON THE PRIMARY CLINICAL RECORDS. [employer] [facility]. provides no warranty or guarantee of the accuracy or completeness of information in this document.
--- OUTSIDE RECORDS SUMMARY | 2023-06-04 14:22 | XMS_ITS | CCD ---
Author Name Unknown Address [address] [facility] [address] [place] [address] Organization [facility] Care Team Providers Care Ibm Bpm Architect Name Role Phone Yaneth An MD Primary Care Provider [phone] WYATT TAPIA Admitting Unavailable WYATT TAPIA Attending [...] Ciprofloxacin; Translations: [CIPROFLOXACIN] Drug Allergy 10-19-2020 Unknown [facility] (2 sources) Ciprofloxacin Drug Allergy 08-17-2013 [facility] Repository Medications Current Medications Medication Drug Class(es) [...] 200 mg, oral, Daily, First dose on [facility] 08/29/21 at 0900, Phase II/On Unit [...] Comment on above: Take 1 capsule by [facility] twice daily. Completed/Discontinued Medications Medication Drug [...] tablet by mouth three times daily HYDROcodone-acetaminophen ([place]) 5-325 mg per tablet Take 1 tablet [...] spec) Not detected Normal NOT DETECTED [facility] Comment on above: Result Comment: When diagnostic [...] for this test is supported by the [place] of Health and Human Service's declaration that [...] be used). Performed By: #### C VDTB ####[facility] [address] [place], [place] [address]Dr. Bakari [facility] INFLUENZA A AND B AGon 03-28 [facility] SEE BELOW Normal [facility] Comment on above: Result Comment: Nega tive for Flu A protein angiten. Infection due to Flu A cannot be ruled out. Flu A angiten in the sample may be below the detection limit of the test. Performed By: #### I NFLUAB ####[facility] [address] [place], [place] [address]Dr. Bakari [facility] INFLUBNEGH SEE BELOW Normal [facility] Comment on above: Result Comment: Nega tive for Flu B protein antigen. Infection due to Flu B cannot be ruled out. Flu B antigen in the sample may be below the detection limit of the test. Performed By: #### I NFLUAB ####[facility] [address] [place], [place] [address]Dr. maxx [facility] INFLUENZA A AG Negative Normal NEGATIVE SEE COMMENT [facility] Comment on above: Performed By: #### I NFLUAB ####[facility] [address] [place], [place] [address]Dr. Bakari [facility] INFLUENZA B AG Negative Normal NEGATIVE SEE COMMENT [facility] Comment on above: Performed By: #### I NFLUAB ####[facility] [address] [place], [place] [address]Dr. Bakari [facility] INTERNAL CONTROLS Within Normal Limits Normal Wi thin Normal Limits [facility] Comment on above: Performed By: #### I NFLUAB ####[facility] [address] [place], [place] [address]Nk. Bakari Isidro Covid-19 PCR (CVDTBH)on SARS-CoV-2 (COVID-19) RNA HELLEN+probe Ql (Unsp spec) Not detected Normal NOT DETECTED [facility] Comment on above: Result Comment: This test is not yet approved or cleared by the [place] FDA. When there are no FDA-approved or cleared tests available, and other criteria are met, FDA can make tests available under an emergency access mechanism called an Emergency Use Authorization (EUA). The EUA for this test is supported by the [employer] Hand of Health and Human Service's (HHS's) declaration [...] with SARS-CoV-2. Performed By: #### C VDTBH ####[facility] [address] [place], [place] [address]Us. Bakari Isidro Covid-19 PCR (CVDTBH)on 01-12 SARS-CoV-2 (COVID-19) RNA HELLEN+probe Ql (Unsp spec) Not detected Normal NOT DETECTED [facility] Comment on above: Result Comment: This test is not yet approved or cleared by the [place] FDA. When there are no FDA-approved or cleared tests available, and other criteria are met, FDA can make tests available under an emergency access mechanism called an Emergency Use Authorization (EUA). The EUA for this test is supported by the [place] of Health and Human Service's (HHS's) declaration [...] with SARS-CoV-2. Performed By: #### C VDTBH ####[facility] [address] [place], [place] [address]JhDr. Bakari Isidro VIT D 25-OH LABCORPon 2021 Vitamin D, 25-Hydroxy 60.1 ng/mL Normal 30.0-100.0 [facility] Comment on above: Result Comment: Traci min D deficiency has been defined by the [place] of Medicine and an Endocrine Society practice guideline as a level of serum 25-OH vitamin D less than 20 ng/mL (1,2). The Endocrine Society went on to further define vitamin D insufficiency as a level between 21 and 29 ng/mL (2). 1. IOM ([place] of Medicine). 2010. Dietary reference intakes for calcium and D. [place]: The National Academies Press. 2. Qi MF, Celeste [place], Debora CHOWDHURY, et al. Evaluation, treatment, and prevention of vitamin D deficiency: an Endocrine Society clinical practice guideline. JCEM. 2010; 96(7):1911-30. Performed By: #### V ITADLC #### [facility] [address] [place], [place] [address] Dr. Bakari Isidro CBC AUTO DIFFon 11-19-2021 BASO # 0.0 103/ul Normal 0.0-0.1 [facility] Comment on above: Performed By: #### C BC ####[facility] [address] [place], [place] [address]MrDr. Bakari Isidro Basophils/100 WBC (Bld) 0.5 % Normal 0.2-2.0 [facility] Comment on above: Performed By: #### C BC ####[facility] [address] [place], [place] [address]HeDr. Bakari Isidro EO # 0.1 103/ul Normal 0.0-0.7 [facility] Comment on above: Performed By: #### C BC ####[facility] [address] [place] [address]Dr. Bakari Isidro Eosinophils/100 WBC (Bld) 1.4 % Normal 0.9-7.0 [facility] Comment on above: Performed By: #### C BC ####[facility] [address] [place] [address]Dr. Bakari Isidro Erythrocyte distribution width (RBC) [Ratio] 12.8 % Normal 11.0-15.0 [facility] Comment on above: Performed By: #### C BC ####[facility] [address] [place], [place] [address]Dr. Bakari Isidro Hematocrit (Bld) [Volume fraction] 43.2 % Normal 36.0-48.0 [facility] Comment on above: Performed By: #### C BC ####[facility] [address] [place], [place] [address]Dr. Bakari Isidro Hemoglobin (Bld) [Mass/Vol] 13.4 g/dL Normal 12.0-16.0 [facility] Comment on above: Performed By: #### C BC ####[facility] [address] [place], [place] [address]Dr. Bakari Isidro IG # 0.05 10e3/ul Critically high 0.00-0.03 [facility] Comment on above: Performed By: #### C BC ####[facility] [address] [place], [place] [address]Dr. Bakari Isidro IG % 0.6 % Critically high 0.0-0.5 [facility] Comment on above: Performed By: #### C BC ####[facility] [address] [place], [place] [address]Dr. Bakari Isidro LYMPH # 1.6 103/ul Normal 1.2-3.8 [facility] Comment on above: Performed By: #### C BC ####[facility] [address] [place], [place] [address]Dr. Bakari Isidro Lymphocytes/100 WBC (Bld) 19.4 % Critically low 20.5-60.0 [facility] Comment on above: Performed By: #### C BC ####[facility] [address] [place] [address]Dr. Bakari Isidro MANUAL DIFF REQ NO Normal [facility] Comment on above: Performed By: #### C BC ####[facility] [address] [place] [id number]. Bakari Isidro MCH (RBC) [Entitic mass] 27.5 pg Normal 26.7-34.0 [facility] Comment on above: Performed By: #### C BC ####[facility] [address] [place] [address]Dr. Bakari Isidro MCHC (RBC) [Mass/Vol] 31.0 g/dL Normal 29.9-35.2 [facility] Comment on above: Performed By: #### C BC ####[facility] [address] [place], [place] [address]Dr. Bakari Isidro MCV (RBC) [Entitic vol] 88.5 fL Normal 81.0-99.0 [facility] Comment on above: Performed By: #### C BC ####[facility] [address] [place], [place] [address]Dr. Bakari Isidro MONO # 0.6 103/ul Normal 0.3-0.8 [facility] Comment on above: Performed By: #### C BC ####[facility] [address] [place], [place] [address]Dr. Bakari Isidro Monocytes/100 WBC (Bld) 7.2 % Normal 1.7-12.0 [facility] Comment on above: Performed By: #### C BC ####[facility] [address] [place], [place] [address]DrJuan A Isidro NEUT # 6.0 103/ul Normal 1.4-6.5 [facility] Comment on above: Performed By: #### C BC ####[facility] [address] [place], [place] [address]DrJuan A Isidro Neutrophils/100 WBC (Bld) 70.9 % Normal 43.0-75.0 [facility] Comment on above: Performed By: #### C BC ####[facility] [address] [place] [id number]. Bakari Isidro Platelet mean volume (Bld) [Entitic vol] 9.5 fL Normal 9.5-13.5 [facility] Comment on above: Performed By: #### C BC ####[facility] [address] [place] [id number]. Bakari Isidro PLT 236 103/ul Normal 150-450 [facility] Comment on above: Performed By: #### C BC ####[facility] [address] [place] [id number] A Isidro RBC 4.88 106/ul Normal 4.20-5.40 [facility] Comment on above: Performed By: #### C BC ####[facility] [address] [place] [id number] A Isidro WBC 8.5 103/ul Normal 4.0-11.0 [facility] Comment on above: Performed By: #### C BC ####[facility] [address] [place] [id number]. Bakari Isidro FREE THYROXINE INDEX T7on FTI 2.27 Normal 1.30-4.50 [facility] Comment on above: Performed By: #### T SH, LIPID, CMP, T7 #### [facility] [address] [place] [address] [address] Bakari Isidro T3U 32.0 % Normal 30.0-39.0 [facility] Comment on above: Performed By: #### T SH, LIPID, CMP, T7 #### [facility] [address] [place] [address] [address] Bakari Isidro T4 [Mass/Vol] 7.10 ug/dL Normal 4.80-13.90 [facility] Comment on above: Performed By: #### T SH, LIPID, CMP, T7 #### [facility] [address] [place] [address] [address] Bakari Isidro GLYCOHEMOGLOBIN A1Con 2021 ADA RECOMMENDATION SEE BELOW Normal [facility] Comment on above: Result Comment: ADA RECOMMENDED LIMIT 4.0 - 6.0 ADA THERAPEUTIC TARGET < 7.0 ACTION SUGGESTED > 7.0 Performed By: #### A 1C #### [facility] [address] [place] [address] [address] Bakari Isidro Glucose [Mass/Vol] 105 mg/dL Normal [facility] Comment on above: Performed By: #### A 1C #### [facility] [address] [place] [address] [address] Bakari Isidro HbA1c (Bld) [Mass fraction] 5.3 % Normal 4.5-6.2 [facility] Comment on above: Performed By: #### A 1C #### [facility] [address] [place] [address] [address] Bakari Isidro IRONon 11-19-2021 Iron [Mass/Vol] 49.0 ug/dL Critically low 50.0-170.0 [facility] Comment on above: Performed By: #### I JOHAN, B12FOL ####[facility] [address] [place] [address]Dr. Bakari Isidro LIPID PROFILEon 11-19-2021 CHOL-HDL RATIO NORM SEE BELOW Normal [facility] Comment on above: Result Comment: 3.3 - 4.4 LOW RISK 4.4 - 7.1 AVERAGE RISK 7.1 - 11.0 MODERATE RISK >11.0 HIGH RISK Performed By: #### T SH, LIPID, CMP, T7 #### [facility] [address] [place] [address] [address] Bakari Isidro Cholesterol [Mass/Vol] 219 mg/dL Critically high <=200 [facility] Comment on above: Performed By: #### T SH, LIPID, CMP, T7 #### [facility] [address] [place] [address] [address] Bakari Isidro Cholesterol in HDL [Mass/Vol] 43 mg/dL Normal 40-60 [facility] Comment on above: Performed By: #### T SH, LIPID, CMP, T7 #### [facility] [address] [place] [address] [address] Bakari Isidro Cholesterol in LDL [Mass/Vol] 147.0 mg/dL Normal [facility] Comment on above: Performed By: #### T SH, LIPID, CMP, T7 #### [facility] [address] [place] [address] [address] Bakari Isidro Cholesterol.total /Cholesterol in HDL [Mass ratio] 5.1 {ratio} Normal [facility] Comment on above: Performed By: #### T SH, LIPID, CMP, T7 #### [facility] [address] [place] [address] [address] Bakari Isidro HDL NORMAL > or = 60 mg/dl - LO W CARDIOVASCULAR RISK <40 mg/dl - HIGH CARDIOVASCULAR RISK Normal [facility] Comment on above: Performed By: #### T SH, LIPID, CMP, T7 #### [facility] [address] [place] [address] Dr. Bakari Isidro LDL CALC NORMAL SEE BELOW Normal [facility] Comment on above: Result Comment: <100 mg/dl OPTIMAL 100 - 129 mg/dl NEAR OR ABOVE OPTIMAL 130 - 159 mg/dl BORDERLINE HIGH 160 - 189 mg/dl HIGH >190 mg/dl VERY HIGH Performed By: #### T SH, LIPID, CMP, T7 #### [facility] [address] [place] [address] Dr. Bakari Isidro Triglyceride [Mass/Vol] 145 mg/dL Normal <=150 [facility] Comment on above: Performed By: #### T SH, LIPID, CMP, T7 #### [facility] [address] [place] [address] [address] Bakari Isidro VLDL CALC 29.0 mg/dL Normal [facility] Comment on above: Performed By: #### T SH, LIPID, CMP, T7 #### [facility] [address] [place] [address] Dr. Bakari Isidro PROF 14(COMP METB)on 022 Albumin [Mass/Vol] 3.6 g/dL Normal 3.4-5.0 [facility] Comment on above: Performed By: #### T SH, LIPID, CMP, T7 #### [facility] [address] [place] [address] [address] Bakari Isidro Albumin/Globulin [Mass ratio] 1.1 {ratio} Normal [facility] Comment on above: Performed By: #### T SH, LIPID, CMP, T7 #### [facility] [address] [place] [address] Dr. Bakari Isidro ALP [Catalytic activity/Vol] 129 U/L Critically high 46-116 [facility] Comment on above: Performed By: #### T SH, LIPID, CMP, T7 #### [facility] [address] [place] [address] Dr. Bakari Isidro ALT [Catalytic activity/Vol] 24 U/L Normal 14-59 [facility] Comment on above: Performed By: #### T SH, LIPID, CMP, T7 #### [facility] [address] [place] [address] Dr. Bakari Isidro Anion gap [Moles/Vol] 15.7 mmol/L Normal [facility] Comment on above: Performed By: #### T SH, LIPID, CMP, T7 #### [facility] [address] [place] [address] Dr. Bakari Isidro AST [Catalytic activity/Vol] 13 U/L Critically low 15-37 [facility] Comment on above: Performed By: #### T SH, LIPID, CMP, T7 #### [facility] [address] [place] [address] Dr. Bakari Isidro Bilirubin [Mass/Vol] 0.3 mg/dL Normal 0.2-1.0 [facility] Comment on above: Performed By: #### T SH, LIPID, CMP, T7 #### [facility] [address] [place] [address] Dr. Bakari Isidro Calcium [Mass/Vol] 9.0 mg/dL Normal 8.5-10.1 [facility] Comment on above: Performed By: #### T SH, LIPID, CMP, T7 #### [facility] [address] [place] [address] Dr. Bakari Isidro Chloride [Moles/Vol] 105 mmol/L Normal 98-107 [facility] Comment on above: Performed By: #### T SH, LIPID, CMP, T7 #### [facility] [address] [place] [address] [address] Bakari Isidro CO2 [Moles/Vol] 24.0 mmol/L Normal 21.0-32.0 [facility] Comment on above: Performed By: #### T SH, LIPID, CMP, T7 #### [facility] [address] [place] [address] [address] Bakari Isidro Creatinine [Mass/Vol] 0.55 mg/dL Normal 0.55-1.02 [facility] Comment on above: Performed By: #### T SH, LIPID, CMP, T7 #### [facility] [address] [place] [address] [address] Bakari Isidro EGFR-AF ICELANDIC >60 Normal >=60 [facility] Comment on above: Performed By: #### T SH, LIPID, CMP, T7 #### [facility] [address] [place] [address] [address] Bakari Isidro EGFR-NON AF ICELANDIC >60 Normal >=60 [facility] Comment on above: Performed By: #### T SH, LIPID, CMP, T7 #### [facility] [address] [place] [address] [address] Bakari Isidro Globulin (S) [Mass/Vol] 3.2 g/dL Normal [facility] Comment on above: Performed By: #### T SH, LIPID, CMP, T7 #### [facility] [address] [place] [address] [address] Bakari Isidro Glucose [Mass/Vol] 99 mg/dL Normal 74-106 [facility] Comment on above: Performed By: #### T SH, LIPID, CMP, T7 #### [facility] [address] [place] [address] [address] Bakari Isidro Potassium [Moles/Vol] 4.7 mmol/L Normal 3.5-5.1 [facility] Comment on above: Performed By: #### T SH, LIPID, CMP, T7 #### [facility] [address] [place] [address] [address] Bakari Isidro Protein [Mass/Vol] 6.8 g/dL Normal 6.4-8.2 [facility] Comment on above: Performed By: #### T SH, LIPID, CMP, T7 #### [facility] [address] [place] [address] [address] Bakari Isidro Sodium [Moles/Vol] 140 mmol/L Normal 136-145 [facility] Comment on above: Performed By: #### T SH, LIPID, CMP, T7 #### [facility] [address] [place] [address] [address] Bakari Isidro Urea nitrogen [Mass/Vol] 17.0 mg/dL Normal 7.0-18.0 [facility] Comment on above: Performed By: #### T SH, LIPID, CMP, T7 #### [facility] [address] [place] [address] [address] Bakari Isidro Urea nitrogen/Creatini ne [Mass ratio] 30.9 mg/mg Normal [facility] Comment on above: Performed By: #### T SH, LIPID, CMP, T7 #### [facility] [address] [place] [address] Dr. Bakari Isidro TSHon 11-19-2021 TSH 0.483 uIU/mL Normal 0.358-3.740 [facility] Comment on above: Performed By: #### T SH, LIPID, CMP, T7 #### [facility] [address] [place] [address] [address] Bakari Isidro VIT B12 AND FOLATEon 022 Cobalamin (Vitamin B12) [Mass/Vol] 1350.0 pg/mL Critically high 193.0-986.0 [facility] Comment on above: Performed By: #### I JOHAN B12FOL ####[facility] [address] [place] [id number]. Bakari Isidro FOLATE 23.50 ng/mL Normal 8.60-58.90 [facility] Comment on above: Performed By: #### I JOHAN B12FOL ####[facility] [address] [place] [id number]. Bakari Isidro Glucose Auto test strip (Bld ) [Mass/Vol]on 08-28-2021 Glucose [Mass/Vol] 85 mg/dL Normal 70-99 [facility] Comment on above: Performed By: #### 2 340-8 #### [facility] [address] [place] [address] Glucose [Mass/Vol] 85 mg/dL 70 - 99 mg/dL [facility] Interpretation and review of laboratory results Normal [facility] Glucose [Mass/Vol] 85 mg/dL Normal 70-99 [facility] Comment on above: Performed By: #### 2 340-8 #### [facility] [address] [place] [address] Glucose [Mass/Vol] 85 mg/dL 70 - 99 mg/dL [facility] Interpretation and review of laboratory results Normal [facility] XR PELVIS 1-2 VIEWSon 2021 XR PELVIS [...] Self Edit Transcribed Date: 08/28/2021 15:40 Normal [facility] XR Pelvis 1-2 Viewson 2021 Surgical changes fro m a total right hip arthroplasty with normal alignment. -------- FINAL REPORT -------- Dictated By: Sina Nguyen Dictated Date: 08/28/2021 15:40 Assigned Physician: Sina Nguyen Reviewed and Electronically Signed By: Sina Nguyen Signed Date: 08/28/2021 15:40 Workstation ID: [id number] Transcribed By: Self Edit Transcribed Date: 08/28/2021 15:40 Path LogicCRIBE EXAMINATION TYPE: XR PELVIS 1-2 VIEWS DATE [...] By: Self Edit Transcribed Date: 08/28/2021 15:40 [facility] Radiology Study observation (narrative) [facility] XR Pelvis 1-2 ViewsOrdered B y: Sina Nguyen on 08-28-2021 [employer] Work Phone: Covid-19 PCR (CVDTBH)on 08-11 SARS-CoV-2 (COVID-19) RNA HELLEN+probe Ql (Unsp spec) Not detected Normal NOT DETECTED [facility] Comment on above: Result Comment: This test is not yet approved or cleared by the [place] FDA. When there are no FDA-approved or cleared tests available, and other criteria are met, FDA can make tests available under an emergency access mechanism called an Emergency Use Authorization (EUA). The EUA for this test is supported by the [employer] Hand of Health and Human Service's (HHS's) declaration [...] SARS-CoV-2. Performed By: #### C VDTB #### [facility] [address] [place] [address] Dr. Bakari Isidro Basic metabolic 2000 panelon 08-02-2021 Anion gap [Moles/Vol] 10 mmol/L Normal 6-18 [facility] Comment on above: Performed By: #### 2 4321-2 #### [facility] [address] [facility] [address] Calcium [Mass/Vol] 9.6 mg/dL Normal 8.9-10.3 [facility] Comment on above: Performed By: #### 2 4321-2 #### [facility] [address] [facility] [address] Chloride [Moles/Vol] 103 mmol/L Normal 98-107 [facility] Comment on above: Performed By: #### 2 4321-2 #### [facility] [address] [facility] [address] CO2 [Moles/Vol] 27 mmol/L Normal 22-32 [facility] Comment on above: Performed By: #### 2 4321-2 #### [facility] [address] [place] [address] Creatinine [Mass/Vol] 0.60 mg/dL Normal 0.60-1.30 [facility] Comment on above: Performed By: #### 2 4321-2 #### [facility] [address] [place] [address] GFR/1.73 sq M.predicted among non-blacks MDRD (S/P/Bld) [Vol rate/Area] 101 mL/min/{1.73_m2} Normal [facility] Comment on above: Performed By: #### 2 4321-2 #### [facility] [address] [place] [address] Glucose [Mass/Vol] 86 mg/dL Normal 70-99 [facility] Comment on above: Performed By: #### 2 4321-2 #### [facility] [address] [facility] [address] Potassium [Moles/Vol] 4.5 mmol/L Normal 3.6-5.1 [facility] Comment on above: Performed By: #### 2 4321-2 #### [facility] [address] [place] [address] Sodium [Moles/Vol] 140 mmol/L Normal 136-145 [facility] Comment on above: Performed By: #### 2 4321-2 #### [facility] [address] [place] [address] Urea nitrogen [Mass/Vol] 28 mg/dL High 8-20 [facility] Comment on above: Performed By: #### 2 4321-2 #### [facility] [address] [place] [address] Urea nitrogen/Creatini ne [Mass ratio] 46.7 mg/mg High 12.0-20.0 [facility] Comment on above: Performed By: #### 2 4321-2 #### [facility] [address] [place] [address] Hemogram and platelets WO di fferential panel (Bld)on 08-02-2021 Basophils (Bld) [#/Vol] 0.10 10*3/uL Normal 0.00-0.20 [facility] Comment on above: Performed By: #### 2 4317-0 #### [facility] [address] [place] [address] Basophils/100 WBC (Bld) 0.6 % Normal 0.0-2.0 [facility] Comment on above: Performed By: #### 2 4317-0 #### [facility] [address] [place] [address] Eosinophils (Bld) [#/Vol] 0.10 10*3/uL Normal 0.00-0.70 [facility] Comment on above: Performed By: #### 2 4317-0 #### [facility] [address] [place] [address] Eosinophils/100 WBC (Bld) 1.6 % Normal 0.0-7.0 [facility] Comment on above: Performed By: #### 2 4317-0 #### [facility] [address] [place] [address] Erythrocyte distribution width (RBC) [Ratio] 13.8 % Normal 11.0-14.8 [facility] Comment on above: Performed By: #### 2 4317-0 #### [facility] [address] [place] [address] Hematocrit (Bld) [Volume fraction] 40.1 % Normal 35.0-45.0 [facility] Comment on above: Performed By: #### 2 4317-0 #### [facility] [address] [place] [address] Hemoglobin (Bld) [Mass/Vol] 13.1 g/dL Normal 12.0-16.0 [facility] Comment on above: Performed By: #### 2 4317-0 #### [facility] [address] [place] [address] Lymphocytes (Bld) [#/Vol] 1.80 10*3/uL Normal 1.00-4.80 [facility] Comment on above: Performed By: #### 2 4317-0 #### [facility] [address] [place] [address] 18835 Lymphocytes/100 WBC (Bld) 22.7 % Normal 22.0-44.0 [facility] Comment on above: Performed By: #### 2 4317-0 #### [facility] [address] [place] [address] 58952 MCH 28.1 pcg Normal 27.0-34.0 [facility] Comment on above: Performed By: #### 2 4317-0 #### [facility] [address] [place] [address] 99561 MCHC (RBC) [Mass/Vol] 32.7 g/dL Normal 32.0-36.0 [facility] Comment on above: Performed By: #### 2 4317-0 #### [facility] [address] [place] [address] 68914 MCV (RBC) [Entitic vol] 86.0 fL Normal 80.0-97.0 [facility] Comment on above: Performed By: #### 2 4317-0 #### [facility] [address] [place] [address] 42310 Monocytes (Bld) [#/Vol] 0.50 10*3/uL Normal 0.00-0.90 [facility] Comment on above: Performed By: #### 2 4317-0 #### [facility] [address] [place] [address] 44083 Monocytes/100 WBC (Bld) 6.3 % Normal 0.0-12.0 [facility] Comment on above: Performed By: #### 2 4317-0 #### [facility] [address] [place] [address] 70675 Neutrophils Absolute 5.30 K/mcL Normal 1.80-7.70 [facility] Comment on above: Performed By: #### 2 4317-0 #### [facility] [address] [place] [address] 85406 Neutrophils/100 WBC (Bld) 68.8 % Normal 40.0-70.0 [facility] Comment on above: Performed By: #### 2 4317-0 #### [facility] [address] [place] [address] 11433 Platelet mean volume (Bld) [Entitic vol] 8.6 fL Normal 6.2-12.1 [facility] Comment on above: Performed By: #### 2 4317-0 #### [facility] [address] [place] [address] 27756 Platelets (Bld) [#/Vol] 290 10*3/uL Normal 142-424 [facility] Comment on above: Performed By: #### 2 4317-0 #### [facility] [address] [place] [address] 50031 RBC (Bld) [#/Vol] 4.66 10*6/uL Normal 3.80-5.10 [facility] Comment on above: Performed By: #### 2 4317-0 #### [facility] [address] [place] [address] 94408 WBC (Bld) [#/Vol] 7.8 10*3/uL Normal 4.6-10.2 [facility] Comment on above: Performed By: #### 2 4317-0 #### [facility] [address] [place] [address] Nuclear IgG IA Ql (S)on 07-13 Bacteria identified Cx Nom (U) 1 ORGANISM 202 Abnormal >390690 CFU/mL Escherichia coli The organism value for [...] Islt <=20 ug/ml Susceptible Invalid Interpretation Code [facility] Comment on above: Performed By: #### 2 9950-3 #### [facility] ([facility]) [facility] [address] [place] [address] Bacteria, Urine Moderate Abnormal None [facility] Comment on above: Performed By: #### 2 50-3 #### [facility] ([facility] [address] [place] [address] Calcium Oxalate Crystals, Urine Occasional Abnormal None [facility] Comment on above: Performed By: #### 2 50-3 #### [facility] ([facility]) [facility] [address] [place] [address] RBC, Urine None Seen Normal 0-5 [facility] Comment on above: Performed By: #### 2 9950-3 #### [facility] [address] [place] [address] WBC, Urine 0-5 Normal 0-5 [facility] Comment on above: Performed By: #### 2 9950-3 #### [facility] ([facility] [address] [place] [address] CNCOon 04-26-2021 CNCO Letter Text Normal [facility] Chadd 04-10-2021 CNPN Telephone ([facility]) JESSICA DILLARD ([id number]) 1965 F Date Time Provider Department 04/10/21 PAUL NJ [facility] During your visit today, we recorded the following information about you: Wendie Jean 04/10/2021 11:38 AM Signed Patient called and left message regarding having post operative sleeve questions from 03/29 and concerns regarding a possible urinary tract infection return call to [phone] Barbara Dan RN 04/10/2021 1:15 PM Signed [...] Status:Closed by WENDIE GLEASON on 05/06/21 Normal [facility] OPERATIVE NOon 04-10-2021 OPERATIVE NO HNO ID: [id number] Author: Paul Nj MD Service: General Surgery Author Type: Physician Type: Operative Report Filed: 04/10/2021 11:55 AM Note Text: [facility] - Operative Report JESSICA DILLARD : 1965 AGE: 55. SEX: F PATIENT TYPE: I HOSP SVC: GENS [facility] ATTENDING PHYSICIAN: Paul Nj MD CSN NUMBER: [id number] DATE OF SURGERY/PROCEDURE: 03/29/2021 INCISION/PROCEDURE START TIME: 10:33 AM INCISION CLOSE/PROCEDURE END TIME: 11:30 AM PREOPERATIVE DIAGNOSIS: 1. Morbid obesity with a BMI of 45. 2. Hyperlipidemia. 3. Hypertension. 4. Obstructive sleep apnea. POSTOPERATIVE DIAGNOSIS: 1. Morbid obesity with a BMI of 45. 2. Hyperlipidemia. 3. Hypertension. 4. Obstructive sleep apnea. SURGEON: Paul Nj MD SOFTWARE DATABASE ARCHITECT: Pb Upton MD SURGERY/PROCEDURE: 1. Laparoscopic sleeve [...] any posterior hiatal hernia was noted. A 36-Maltese bougie was passed in the stomach. Multiple [...] present and scrubbed in throughout the operation. Paul Nj MD TA:[id number] /[id number] [facility] CNCOon 04-01-2021 CNCO Letter Text Normal [facility] CNDSon 03-31-2021 [facility] HNO ID: [id number] Author: Titus Colon MD Service: General Surgery [...] Center 04/11/2021 4:10 PM Paul Nj MD [id number] [facility] 05/01/2021 9:00 AM Barbara Martines, PhD GSPSID [facility] 05/09/2021 4:00 PM Paul Nj MD [id number] [facility] 05/10/2021 2:[address] [facility] The patient's risk for 30-day readmission [...] of this (more content not included)... Normal [facility] NURSING PROGon 03-31-2021 NURSING PROG HNO ID: [id number] Author: Deepika Porras RN Service: ? Author [...] This note was completed by: [facility] HNO ID: [id number] Author: Titus Colon MD Service: General Surgery [...] Center 04/11/2021 4:10 PM Paul Nj MD [id number] [facility] 05/01/2021 9:00 AM Barbara Martines, PhD JESSICA Cervantes 05/09/2021 4:00 PM Paul Nj MD [id number] [facility] 05/10/2021 2:30 PM ROSALIND Mo The patient's risk for 30-day readmission is determined using the following contributing factors: Pt variables contributing to increased readmission risk: 25 Most Recent BUN Result 13 Active Medication Orders 1 Insurance - Medicaid 1 Active (more content not included)... Normal [facility] CONSULTon 03-30-2021 CONSULT HNO ID: [id number] Author: Clifton Forde MD Service: General Surgery Author Type: Resident Type: Consults Filed: 03/30/2021 8:27 AM Note Text: PROGRESS NOTES - SURGICAL SERVICES Jessica Dillard [id number] ASSESSMENT/PLAN: 55 year old year old female [...] Yamilex Forde MD PGY-2 General Surgery Surgery [place] Team [phone] weekdays. Or [phone] weeknights (6pm - 6am) and weekends. SUBJECTIVE [...] 0659 03/30/21 07 - 03/31/21 0659 Shift 6788-1421 9879-4861 8445-3082 24 Hour Total 2618-4232 0648-8122 1040-0555 24 Hour Total INTAKE PO 200 150 350 PO 200 150 350 IV 1150 1150 Volume (mL) (ceFAZolin iv piggyback 2 g in D5W (iso-osmotic) 100 mL (ANCEF)) 100 100 Volume (mL) (magnesium sulfate 2 g in NaCl 0.9% 100 mL) 100 100 Volume (mL) (lactated ringers iv infusion) 950 950 Shift Total 1848 363 1626 OUTPUT Urine 200 400 600 Void (ml) [...] imaging results. CBC, Coags, BMP, Mg, Phos [facility] NURSING PROGon 03-30-2021 NURSING PROG HNO ID: [id number] Author: Theresa Rosas RN Service: ? Author [...] Paged team 1346: (late entry) administered compazine. [facility] NURSING PROG HNO ID: [id number] Author: Cookie Capellan RN Service: ? Author Type: Registered Nurse Type: Nursing Progress Note Filed: 03/30/2021 3:41 AM Note Text: Nursing Progress Note Patient Name: Jessica Dillard Patient Location: [id number]/[id number] Daily Note: 0339: Pt's HR tachy at rest, this RN witnessed it as high as 112. Temp 99.3 F. Text page sent to SROC to inform. This note was completed by: Cookie Capellan [facility] ANES POSTPROC EVALon 021 ANES POSTPROC EVAL HNO ID: [id number] Author: Gray Acosta MD Service: Anesthesiology Author Type: Anesthesiologist [...] March 29, 2021 TIME: 12:15 PM CSN: [id number] [facility] ANES PRE-OPon 03-29-2021 ANES PRE-OP HNO ID: [id number] Author: Tiburcio Eisenberg MD Service: Anesthesiology Author [...] March 29, 2021 TIME: 9:34 AM CSN: [id number] [facility] BRIEF OP NOTon 03-29-2021 BRIEF OP NOT HNO ID: [id number] Author: Pb Upton MD Service: General Surgery Author Type: Resident Type: Brief Op Note Filed: 03/29/2021 12:27 PM Note Text: BRIEF OPERATIVE NOTE [facility] LOG ID: [id number] SURGERY/PROCEDURE DATE: 03/29/2021 INCISION/PROCEDURE START TIME: 10:33 AM INCISION CLOSE/PROCEDURE END TIME: 11:30 AM SURGEON(S) AND SOFTWARE DATABASE ARCHITECT(S): Surgeon(s) and Role: * Paul Nj MD [...] 29, 2021 TIME: 12:26 PM PAGER/CONTACT #: [facility] NURSING PROGon 03-29-2021 NURSING PROG HNO ID: [id number] Author: Deena Atkinson RN Service: ? Author [...] (RECOMMENDATION): None Electronically Signed By: Deena Atkinson [facility] SURGICAL PATHOLOGYon 021 SURGICAL PATHOLOGY Specimen originated from [facility] Specimen #: [id number] Submitting Physician: PAUL NJ MD FINAL DIAGNOSIS [...] The serosal surface is kruse-pink and smooth. 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 / 03/29/2021 Gross examination performed at [facility], [address] [place] [address] Date of Report: 04/02/2021 Date of Procedure: 03/29/2021 Date of Receipt: 03/29/2021 Submitted by: PAUL NJ MD Location: [facility] Diagnostic interpretation performed at [facility], [address] [place] [address]. CLIA Number: [id number] Normal [facility] THERAPY NTon 03-29-2021 THERAPY NT HNO ID: [id number] Author: Tete Knapp RRT Service: Respiratory Therapy Author Type: Respiratory Therapist Type: Therapy (PT/OT/Speech/Resp) Filed: 03/29/2021 4:24 PM Note Text: Patient does not wear CPAP at home. No unit in the room. Tete Knapp, ZOILA Normal [facility] Self Check COVIDon SARS-CoV-2 (COVID-19) RNA HELLEN+probe Ql (Unsp spec) UPPER RESPIRATORY TRACT SWAB Normal [facility] Comment on above: Performed By: #### H CCOVD ####[facility] [place], [place] [phone] SARS-CoV-2 (COVID-19) RNA HELLEN+probe Ql (Unsp spec) Negative for COVID19 (SARS CoV2) by RT-PCR or equivalent method. Normal Negative for COVID19 (SARS CoV2) by RT-PCR or equivalent method. [facility] Comment on above: Result Comment: This test was developed and its performance characteristics determined by [facility]'s [facility] [place]. This test has been authorized by FDA under an Emergency Use Authorization (EUA). This test has been validated in accordance with the FDA's Guidance Document Policy for Diagnostics Testing in Laboratories Certified to Perform High Complexity Testing under CLIA prior to Emergency use Authorization for Coronavirus Disease 2019 during the Public Health Emergency issued on June 11, 2019. Test performed by [facility], [facility] [place], [address], [place] [address]. Performed By: #### H CCOVD ####[place] [address] [place], [place] [phone] CBC and Differentialon 03-22 Abs Baso 0.03 k/uL Normal <0.11 [facility] Abs Placer 0.65 k/uL Normal <0.87 [facility] Abs Neut 7.80 k/uL High 1.45-7.50 [facility] Absolute nRBC <0.01 Normal <0.01 [facility] Basophils/100 WBC (Bld) 0.3 % Normal [facility] DTYPE Auto Diff Normal [facility] Eosinophils (Bld) [#/Vol] 0.09 10*3/uL Normal <0.46 [facility] Eosinophils/100 WBC (Bld) 0.9 % Normal [facility] Erythrocyte distribution width (RBC) [Ratio] 12.9 % Normal 11.5-15.0 [facility] Hematocrit (Bld) [Volume fraction] 41.9 % Normal 36.0-46.0 [facility] Hemoglobin (Bld) [Mass/Vol] 13.6 g/dL Normal 11.5-15.5 [facility] Lymphocytes (Bld) [#/Vol] 1.67 10*3/uL Normal 1.00-4.00 [facility] Lymphocytes/100 WBC (Bld) 16.3 % Normal [facility] MCH 27.6 pG Normal 26.0-34.0 [facility] MCHC (RBC) [Mass/Vol] 32.5 g/dL Normal 30.5-36.0 [facility] MCV (RBC) [Entitic vol] 85.0 fL Normal 80.0-100.0 [facility] Monocytes/100 WBC (Bld) 6.3 % Normal [facility] Neutrophils/100 WBC (Bld) 76.2 % Normal [facility] NRBCs 0.0 /100 WBC Normal 0 [facility] Platelet mean volume (Bld) [Entitic vol] 9.6 fL Normal 9.0-12.7 [facility] Platelets (Bld) [#/Vol] 271 10*3/uL Normal 150-400 [facility] RBC (Bld) [#/Vol] 4.93 10*6/uL Normal 3.90-5.20 [facility] WBC (Bld) [#/Vol] 10.24 10*3/uL Normal 3.70-11.00 [facility] CNOVon 03-22-2021 CNOV Office Visit (BMIREJ ) JESSICA DILLARD ([id number]) 1965 F Date Time Provider Department 03/22/21 10:00 AM PAUL NJ [facility] During your visit today, we recorded the following information about you: Pulse Blood pressure Weight Height 91/minute 121/64 119.7 kg 1.6 m Paul Nj MD 03/22/2021 10:19 AM Signed SURGERY PREOPERATIVE VISIT NOTE Name: Jessica Dillard Medical Record: [id number] Encounter No.: [id number] Jessica Dillard is a 55 year old [...] regarding unsatisfactory weight loss as well as senior care weight regain. I have also discussed medical complications including urinary tract infections, myocardial infarction, DVT, PE, prolonged ICU stay, and possible postoperative mechanical ventilation and the risk of mortality. I have reviewed with this patient needed nutritional changes, post-operative recovery, and the potential for excess skin following surgery and subsequent weight loss. Risk (more content not included)... Normal [facility] Comp Metabolic Panelon 03-22 Albumin [Mass/Vol] 4.4 g/dL Normal 3.9-4.9 [facility] ALP [Catalytic activity/Vol] 94 U/L Normal 34-123 [facility] ALT [Catalytic activity/Vol] 24 U/L Normal 7-38 [facility] Anion gap [Moles/Vol] 15 mmol/L Normal 9-18 [facility] AST [Catalytic activity/Vol] 22 U/L Normal 13-35 [facility] Bilirubin [Mass/Vol] 0.2 mg/dL Normal 0.2-1.3 [facility] Calcium [Mass/Vol] 9.9 mg/dL Normal 8.5-10.2 [facility] Chloride [Moles/Vol] 102 mmol/L Normal 97-105 [facility] CO2 [Moles/Vol] 21 mmol/L Low 22-30 [facility] Creatinine [Mass/Vol] 0.57 mg/dL Low 0.58-0.96 [facility] eGFR- Amer. >60 Normal [facility] eGFR-All Other Races >60 Normal [facility] Comment on above: Result Comment: eGFR (Estimated [...] [email or web address]. Glucose [Mass/Vol] 106 mg/dL High 74-99 [facility] Comment on above: Result Comment: The [place] Diabetes Association (ADA) provides guidance for cutoff [...] Standards of Medical Care in Diabetes 2016, [place] Diabetes Association. Diabetes Care. 2016.39(Suppl 1). Potassium [Moles/Vol] 4.8 mmol/L Normal 3.7-5.1 [facility] Protein [Mass/Vol] 7.3 g/dL Normal 6.3-8.0 [facility] Sodium [Moles/Vol] 138 mmol/L Normal 136-144 [facility] Urea nitrogen [Mass/Vol] 25 mg/dL High 7-21 [facility] HISTORY PHYSICALon HISTORY PHYSICAL HNO ID: [id number] Author: Deanna Bourne PA-C Service: ? Author Type: Physician General Contractor Type: HANDP Filed: 03/26/2021 8:17 AM Note [...] fevers. Neuro: No history of TIA's, stroke, INSOLE AND OUTSOLE SPLITTER tumor, impaired sensorium, hemiplegia, paraplegia or quadraplegia. No neurological symptoms or problems. Respiratory: No history of current cough or dyspnea, or pneumonia in the past 6 weeks. No history of respiratory/pulmonary symptoms or problems. Cardiovascular: No history of HTN requiring medication, no history of angina, CHF, SC, cardiac surgery or stents. Denies rest pain, gangrene or revascularization/amputation for PVD. No history of cardiovascular symptoms or problems. 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 Normal [facility] Type and SCR (30D)on 021 ABO/RH(D) Positive Normal [facility] Comment on above: Performed By: #### T SCR30 ####[facility] [place], [place] [phone] Chadd 02-22-2021 CNPN Telephone (DTBAMN) JESSICA DILLARD ([id number]) 1965 F Date Time Provider Department 02/22/21 [...] Encounter Status:Closed by BEBA AVILA on 02/22/21 [facility] JESSICA DILLARD ([id number]) 1965 F Date Time Provider Department 02/20/21 PAUL NJ [facility] During your visit today, we recorded the following information about you: Wendie Jean 02/20/2021 1:45 PM Signed Patient called and left message regarding having pre-operative questions return call to [phone] Wen Bill RN 02/21/2021 11:42 AM Signed [...] Fully Assessed Reason for Visit: PreOp Call [0964] Prescriptions as of 02/22/2021 - cholecalciferol, vitamin [...] by WEN BILL RN on 02/22/21 Normal [facility] CNCOon 02-01-2021 CNCO Letter Text Normal [facility] CNCOon 01-15-2021 CNCO Letter Text Normal [facility] CNOVon 01-07-2021 CNOV Office Visit (BMIREJ ) JESSICA DILLARD ([id number]) 1965 F Date Time Provider Department 01/07/21 10:50 AM JESUS RAMIREZ During your visit today, we recorded the following information about you: Pulse Blood pressure Weight 107/minute 142/77 126.1 kg Jesus Ramirez MD 01/07/2021 2:18 PM Signed January 07, 2021 I am pleased to report that eJssica Dillard is recovering well from her recent laparoscopic adrenalectomy. Fortunately, the mass was benign. Incisions healing very well. She does not require any specific follow up from me for this issue, but I have encouraged her to contact me at any time. She is cleared from my perspective for bariatric surgery. Jesus Ramirez MD Referring Provider: YANETH AN [[id number]] Allergies As of Date: 01/07/2021 Noted Allergy [...] [E27.8] 12/12/2020 BMI 45.0-49.9, adult ([facility]) [Z68.42] 12/12/2020 Hx of partial adrenalectomy [...] Status:Closed by JESUS RAMIREZ on 01/07/21 Normal [facility] Basic Metabolic Panlon 12-28 Anion gap [Moles/Vol] 11 mmol/L Normal 9-18 [facility] Comment on above: Performed By: #### Akua CAMPBELL, BMP #### [place] [phone] Calcium [Mass/Vol] 8.7 mg/dL Normal 8.5-10.5 [facility] Comment on above: Performed By: #### Akua CAMPBELL, BMP #### [place] [phone] Chloride [Moles/Vol] 107 mmol/L Normal 98-110 [facility] Comment on above: Performed By: #### Akua CAMPBELL, BMP #### [place] [phone] CO2 [Moles/Vol] 23 mmol/L Normal 23-32 [facility] Comment on above: Performed By: #### Akua CAMPBELL, BMP #### [place] [phone] Creatinine [Mass/Vol] 0.52 mg/dL Low 0.70-1.40 [facility] Comment on above: Performed By: #### Akua CAMPBELL, BMP #### [place] [phone] eGFR- Amer. >60 Normal >60 [facility] Comment on above: Performed By: #### Akua CAMPBELL, BMP #### [place] [phone] eGFR-All Other Races >60 Normal >60 [facility] Comment on above: Result Comment: eGFR [...] Performed By: #### C BC, BMP #### [place] [phone] Glucose [Mass/Vol] 106 mg/dL High 65-100 [facility] Comment on above: Performed By: #### C BC, BMP #### [place] [phone] Potassium [Moles/Vol] 4.0 mmol/L Normal 3.5-5.0 [facility] Comment on above: Performed By: #### C BC, BMP #### [place] [phone] Sodium [Moles/Vol] 141 mmol/L Normal 132-148 [facility] Comment on above: Performed By: #### C BC, BMP #### [place] [phone] Urea nitrogen [Mass/Vol] 11 mg/dL Normal 8-25 [facility] Comment on above: Performed By: #### C ADRIAN, BMP #### [place] [phone] CBCon 12-28-2020 Absolute nRBC <0.01 Normal <0.01 [facility] Comment on above: Performed By: #### C BC, BMP #### [place] [phone] Erythrocyte distribution width (RBC) [Ratio] 12.5 % Normal 11.5-15.0 [facility] Comment on above: Performed By: #### C BC, BMP #### [place] [phone] Hematocrit (Bld) [Volume fraction] 37.7 % Normal 36.0-46.0 [facility] Comment on above: Performed By: #### C ADRIAN, BMP #### [place] [address] Hemoglobin (Bld) [Mass/Vol] 12.1 g/dL Normal 11.5-15.5 [facility] Comment on above: Performed By: #### C BC, BMP #### [place] [address] MCH 28.1 pG Normal 26.0-34.0 [facility] Comment on above: Performed By: #### C BC, BMP #### [place] [phone] MCHC (RBC) [Mass/Vol] 32.1 g/dL Normal 30.5-36.0 [facility] Comment on above: Performed By: #### C BC, BMP #### [place] [phone] MCV (RBC) [Entitic vol] 87.7 fL Normal 80.0-100.0 [facility] Comment on above: Performed By: #### C BC, BMP #### [place] [phone] Platelet mean volume (Bld) [Entitic vol] 9.6 fL Normal 9.0-12.7 [facility] Comment on above: Performed By: #### C BC, BMP #### [place] [phone] Platelets (Bld) [#/Vol] 226 10*3/uL Normal 150-400 [facility] Comment on above: Performed By: #### C BC, BMP #### [place] [address] RBC (Bld) [#/Vol] 4.30 10*6/uL Normal 3.90-5.20 [facility] Comment on above: Performed By: #### C BC, BMP #### [place] [address] WBC (Bld) [#/Vol] 8.65 10*3/uL Normal 3.70-11.00 [facility] Comment on above: Performed By: #### C , [facility] #### [facility] [address] [place] [address] CNDSon 12-28-2020 [facility] HNO ID: [id number] Author: Loren Boyd MD Service: General Surgery [...] was uncomplicated. Patient was then returned to [facility] where her post-op recovery was essentially [...] Center 01/07/2021 10:50 AM Jesus Ramirez [facility] The patient's risk for 30-day readmission is determined using the following contributing factors: Pt variables contributing to increased readmission risk: 15 Most Recent BUN Result 8 Active Medication Orders 1 Insurance - Medicaid 1 Active Anticoagulant SIGNATURE: Loren Boyd MD DATE: December 28, 2020 TIME: 7:46 AM [facility] NURSING PROGon 12-28-2020 NURSING PROG HNO ID: [id number] Author: Maicol Monae RN Service: ? Author Type: Registered Nurse Type: Nursing Progress Note Filed: 12/28/2020 4:08 AM Note Text: Nursing Progress Note Patient Name: Jessica Dillard Patient Location: / Daily Note: 0200 Patients IV removed for possible infiltration, ice applied and elevated, new IV placed. Paged house to make them aware. This note was completed by: Maicol Monae [facility] NURSING PROG HNO ID: [id number] Author: Maicol Monae RN Service: ? Author [...] This note was completed by: Maicol Monae [facility] ANES POSTPROC EVALon 021 ANES POSTPROC EVAL HNO ID: [id number] Author: Donnell Chicas MD Service: Anesthesiology Author [...] December 27, 2020 TIME: 4:54 PM CSN: [id number] [facility] ANES PRE-OPon 12-27-2020 ANES PRE-OP HNO ID: [id number] Author: Abilio Hansen DO Service: Critical Care [...] December 27, 2020 TIME: 9:06 AM CSN: [id number] [facility] BRIEF OP NOTon 12-27-2020 BRIEF OP NOT HNO ID: [id number] Author: Kadi Flanagan MD Service: General Surgery Author Type: Resident Type: Brief Op Note Filed: 12/27/2020 3:28 PM Note Text: Attestation signed by Jesus Ramirez MD at 12/27/2020 3:37 PM [id number] Jesus Ramirez MD BRIEF OPERATIVE / PROCEDURE NOTE LOG ID: [id number] Surgery/Procedure Date: 12/27/2020 Incision/Procedure Start Time: 1:31 PM Incision Close/Procedure End Time: 3:13 PM Surgeon(s)/Proceduralist(s) and General Contractor(s): Surgeon(s) and Role: * Jesus Ramirez MD [...] DATE: December 27, 2020 TIME: 3:27 PM [facility] Confirm Blood Typeon 021 ABO/RH(D) Positive [facility] Comment on above: Performed By: #### C ONABO ####[facility] [place], [place] [phone] HISTORY PHYSICALon HISTORY PHYSICAL HNO ID: [id number] Author: Kadi Flanagan MD Service: General Surgery [...] December 27, 2020 TIME: 9:45 AM Normal [facility] NURSING PROGon 12-27-2020 NURSING PROG HNO ID: [id number] Author: Barbara Calix RN Service: Nursing Author Type: Registered Nurse Type: Nursing Progress Note Filed: 12/27/2020 8:02 PM Note Text: Nursing Progress Note Patient Name: Jessica Dillard Patient Location: / Daily Note: 1745 Received patient from PACU, alert, Abdominal Stab sites intact. Up to bathroom with contact guard, gait steady. This note was completed by: Barbara Calix [facility] NURSING PROG HNO ID: [id number] Author: Valencia Abdul RN Service: Nursing Author [...] (RECOMMENDATION): None Electronically Signed By: Valencia Abdul [facility] OPERATIVE NOon 12-27-2020 OPERATIVE NO HNO ID: [id number] Author: Jesus Ramirez MD Service: General Surgery Author Type: Physician Type: Operative Report Filed: 12/28/2020 10:33 AM Note Text: [facility] - Operative Report JESSICA DILLARD : 1965 AGE: 55. SEX: F PATIENT TYPE: I HOSP SVC: GENS LOCATION: [facility] ATTENDING PHYSICIAN: Jesus Ramirez M.D. CSN NUMBER: [id number] DATE OF SURGERY/PROCEDURE: 12/27/2020 INCISION/PROCEDURE START TIME: 1:31 PM INCISION CLOSE/PROCEDURE END TIME: 3:13 PM PREOPERATIVE DIAGNOSIS: Indeterminate right adrenal mass, nonfunctional. POSTOPERATIVE DIAGNOSIS: Indeterminate right adrenal mass, nonfunctional. SURGEON: Jesus Ramirez M.D. SOFTWARE DATABASE ARCHITECT: Adrien Flanagan MD. SURGERY/PROCEDURE: Laparoscopic right adrenalectomy. [...] this procedure with assistance. Jesus Ramirez M.D. JRG:[id number] /[id number] Normal [facility] SURGICAL PATHOLOGYon 021 SURGICAL PATHOLOGY Specimen originated from [facility] Specimen #: [id number] Submitting Physician: Jesus Ramirez M.D. FINAL DIAGNOSIS [...] cortical tissue and virtually no medullary component. 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 /arely 12/28/2020 Gross examination performed at [facility], [address] [address] Date of Report: 01/01/2021 Date of Procedure: 12/27/2020 Date of Receipt: 12/27/2020 Submitted by: Jesus Ramirez M.D. Location: [facility] Diagnostic interpretation performed at [facility], [address] [place] [address]. CLIA Number: [id number] Normal [facility] Self Check COVIDon 1 SARS-CoV-2 (COVID-19) RNA HELLEN+probe Ql (Unsp spec) UPPER RESPIRATORY TRACT SWAB Normal [facility] Comment on above: Performed By: #### H CCOVD ####[facility] [address] [place], [place] [phone] SARS-CoV-2 (COVID-19) RNA HELLEN+probe Ql (Unsp spec) Negative for COVID19 (SARS CoV2) by RT-PCR or equivalent method. Normal Negative for COVID19 (SARS CoV2) by RT-PCR or equivalent method. [facility] Comment on above: Result Comment: This test was developed and its performance characteristics determined by [facility]'s [facility] [place]. This test has been authorized by FDA under an Emergency Use Authorization (EUA). This test has been validated in accordance with the FDA's Guidance Document Policy for Diagnostics Testing in Laboratories Certified to Perform High Complexity Testing under CLIA prior to Emergency use Authorization for Coronavirus Disease 2019 during the Public Health Emergency issued on June 11, 2019. Test performed by [facility], [facility] [place], [address] [place] [address]. Performed By: #### H CCOVD ####[place] [phone] CBC and Differentialon 12-14 Abs Baso 0.03 k/uL Normal <0.11 [facility] Comment on above: Performed By: #### I JOHAN, TSH, B12, B1WB, VITD, PTHI, LIPB, SERFOL ####[place] [phone] Abs Placer 0.54 k/uL Normal <0.87 [facility] Comment on above: Performed By: #### I JOHAN, TSH, B12, B1WB, VITD, PTHI, LIPB, SERFOL ####[place] [phone] Abs Neut 5.39 k/uL Normal 1.45-7.50 [facility] Comment on above: Performed By: #### I JOHAN, TSH, B12, B1WB, VITD, PTHI, LIPB, SERFOL ####[place] [phone] Absolute nRBC <0.01 Normal <0.01 [facility] Comment on above: Performed By: #### I JOHAN, TSH, B12, B1WB, VITD, PTHI, LIPB, SERFOL ####[place] [address] [address] [phone] Basophils/100 WBC (Bld) 0.4 % Normal [facility] Comment on above: Performed By: #### I JOHAN, TSH, B12, B1WB, VITD, PTHI, LIPB, SERFOL ####[place] [phone] DTYPE Auto Diff Normal [facility] Comment on above: Performed By: #### I JOHAN, TSH, B12, B1WB, VITD, PTHI, LIPB, SERFOL ####[place] [address] [phone] Eosinophils (Bld) [#/Vol] 0.10 10*3/uL Normal <0.46 [facility] Comment on above: Performed By: #### I JOHAN, TSH, B12, B1WB, VITD, PTHI, LIPB, SERFOL ####[place] [address] [phone] Eosinophils/100 WBC (Bld) 1.3 % Normal [facility] Comment on above: Performed By: #### I JOHAN, TSH, B12, B1WB, VITD, PTHI, LIPB, SERFOL ####[place] [address] [place] [phone] Erythrocyte distribution width (RBC) [Ratio] 12.4 % Normal 11.5-15.0 [facility] Comment on above: Performed By: #### I JOHAN, TSH, B12, B1WB, VITD, PTHI, LIPB, SERFOL ####[place] [address] [place] [phone] Hematocrit (Bld) [Volume fraction] 43.9 % Normal 36.0-46.0 [facility] Comment on above: Performed By: #### I JOHAN, TSH, B12, B1WB, VITD, PTHI, LIPB, SERFOL ####[place] [address] [address] [phone] Hemoglobin (Bld) [Mass/Vol] 14.1 g/dL Normal 11.5-15.5 [facility] Comment on above: Performed By: #### I JOHAN, TSH, B12, B1WB, VITD, PTHI, LIPB, SERFOL ####[place] [address] [place] [phone] Lymphocytes (Bld) [#/Vol] 1.49 10*3/uL Normal 1.00-4.00 [facility] Comment on above: Performed By: #### I JOHAN, TSH, B12, B1WB, VITD, PTHI, LIPB, SERFOL ####[place] [address] [address] [phone] Lymphocytes/100 WBC (Bld) 19.7 % Normal [facility] Comment on above: Performed By: #### I JOHAN, TSH, B12, B1WB, VITD, PTHI, LIPB, SERFOL ####[place] [address] [place] [phone] MCH 27.2 pG Normal 26.0-34.0 [facility] Comment on above: Performed By: #### I JOHAN, TSH, B12, B1WB, VITD, PTHI, LIPB, SERFOL ####[place] [address] [phone] MCHC (RBC) [Mass/Vol] 32.1 g/dL Normal 30.5-36.0 [facility] Comment on above: Performed By: #### I JOHAN, TSH, B12, B1WB, VITD, PTHI, LIPB, SERFOL ####[place] [address] [address] [phone] MCV (RBC) [Entitic vol] 84.6 fL Normal 80.0-100.0 [facility] Comment on above: Performed By: #### I JOHAN, TSH, B12, B1WB, VITD, PTHI, LIPB, SERFOL ####[place] [address] [place] [phone] Monocytes/100 WBC (Bld) 7.2 % Normal [facility] Comment on above: Performed By: #### I JOHAN, TSH, B12, B1WB, VITD, PTHI, LIPB, SERFOL ####[place] [address] [phone] Neutrophils/100 WBC (Bld) 71.4 % Normal [facility] Comment on above: Performed By: #### I JOHAN, TSH, B12, B1WB, VITD, PTHI, LIPB, SERFOL ####[place] [address] [place] [phone] NRBCs 0.0 /100 WBC Normal 0 [facility] Comment on above: Performed By: #### I JOHAN, TSH, B12, B1WB, VITD, PTHI, LIPB, SERFOL ####[place] [address] [phone] Platelet mean volume (Bld) [Entitic vol] 9.4 fL Normal 9.0-12.7 [facility] Comment on above: Performed By: #### I JOHAN, TSH, B12, B1WB, VITD, PTHI, LIPB, SERFOL ####[place] [address] [place] [phone] Platelets (Bld) [#/Vol] 254 10*3/uL Normal 150-400 [facility] Comment on above: Performed By: #### I JOHAN, TSH, B12, B1WB, VITD, PTHI, LIPB, SERFOL ####[place] [address] [place], [place] [phone] RBC (Bld) [#/Vol] 5.19 10*6/uL Normal 3.90-5.20 [facility] Comment on above: Performed By: #### I JOHAN, TSH, B12, B1WB, VITD, PTHI, LIPB, SERFOL ####[address] [phone] WBC (Bld) [#/Vol] 7.55 10*3/uL Normal 3.70-11.00 [facility] Comment on above: Performed By: #### I JOHAN, TSH, B12, B1WB, VITD, PTHI, LIPB, SERFOL ####[address] [phone] Comp Metabolic Panelon 12-14 Albumin [Mass/Vol] 4.4 g/dL Normal 3.9-4.9 [facility] Comment on above: Performed By: #### I JOHAN, TSH, B12, B1WB, VITD, PTHI, LIPB, SERFOL ####[place] [phone] ALP [Catalytic activity/Vol] 127 U/L High 34-123 [facility] Comment on above: Performed By: #### I JOHAN, TSH, B12, B1WB, VITD, PTHI, LIPB, SERFOL ####[address] [place], [place] [phone] ALT [Catalytic activity/Vol] 23 U/L Normal 7-38 [facility] Comment on above: Performed By: #### I JOHAN, TSH, B12, B1WB, VITD, PTHI, LIPB, SERFOL ####[address] [place], [place] [phone] Anion gap [Moles/Vol] 9 mmol/L Normal 9-18 [facility] Comment on above: Performed By: #### I JOHAN, TSH, B12, B1WB, VITD, PTHI, LIPB, SERFOL ####[address] [place] [phone] AST [Catalytic activity/Vol] 20 U/L Normal 13-35 [facility] Comment on above: Performed By: #### I JOHAN, TSH, B12, B1WB, VITD, PTHI, LIPB, SERFOL ####[address] [place] [phone] Bilirubin [Mass/Vol] 0.3 mg/dL Normal 0.2-1.3 [facility] Comment on above: Performed By: #### I JOHAN, TSH, B12, B1WB, VITD, PTHI, LIPB, SERFOL ####[place] [phone] Calcium [Mass/Vol] 9.3 mg/dL Normal 8.5-10.2 [facility] Comment on above: Performed By: #### I JOHAN, TSH, B12, B1WB, VITD, PTHI, LIPB, SERFOL ####[place] [phone] Chloride [Moles/Vol] 105 mmol/L Normal 97-105 [facility] Comment on above: Performed By: #### I JOHAN, TSH, B12, B1WB, VITD, PTHI, LIPB, SERFOL ####[place] [address] [phone] CO2 [Moles/Vol] 23 mmol/L Normal 22-30 [facility] Comment on above: Performed By: #### I JOHAN, TSH, B12, B1WB, VITD, PTHI, LIPB, SERFOL ####[place] [address] [phone] Creatinine [Mass/Vol] 0.59 mg/dL Normal 0.58-0.96 [facility] Comment on above: Performed By: #### I JOHAN, TSH, B12, B1WB, VITD, PTHI, LIPB, SERFOL ####[place] [address] [place], [place] [phone] eGFR- Amer. >60 Normal [facility] Comment on above: Performed By: #### I JOHAN, TSH, B12, B1WB, VITD, PTHI, LIPB, SERFOL ####[address] [phone] eGFR-All Other Races >60 Normal [facility] Comment on above: Result Comment: eGFR (Estimated [...] TSH, B12, B1WB, VITD, PTHI, LIPB, SERFOL ####[address] [phone] Glucose [Mass/Vol] 124 mg/dL High 74-99 [facility] Comment on above: Result Comment: The [place] Diabetes Association (ADA) provides guidance for cutoff [...] Standards of Medical Care in Diabetes 2016, [place] Diabetes Association. Diabetes Care. 2016.39(Suppl 1). Performed By: #### I JOHAN, TSH, B12, B1WB, VITD, PTHI, LIPB, SERFOL ####[address] [phone] Potassium [Moles/Vol] 4.3 mmol/L Normal 3.7-5.1 [facility] Comment on above: Performed By: #### I JOHAN, TSH, B12, B1WB, VITD, PTHI, LIPB, SERFOL ####[address] [phone] Protein [Mass/Vol] 7.0 g/dL Normal 6.3-8.0 [facility] Comment on above: Performed By: #### I JOHAN, TSH, B12, B1WB, VITD, PTHI, LIPB, SERFOL ####[address] [phone] Sodium [Moles/Vol] 137 mmol/L Normal 136-144 [facility] Comment on above: Performed By: #### I JOHAN, TSH, B12, B1WB, VITD, PTHI, LIPB, SERFOL ####[address] [phone] Urea nitrogen [Mass/Vol] 15 mg/dL Normal 7-21 [facility] Comment on above: Performed By: #### I JOHAN, TSH, B12, B1WB, VITD, PTHI, LIPB, SERFOL ####[address] [phone] Folate, Serumon 12-14-2020 Folate [Mass/Vol] ng/mL Normal >4.7 [facility] Comment on above: Result Comment: A re sult of > 20 ng/mL is not necessarily indicative of a pathologic or treatable condition: it reflects a limitation of the test methodology. Assay reference range: 4.8 to 24.2 ng/mL. Suitable for detection of folate deficiency. Reference: Folate III (Folate III) [package insert V 2.0 [place]]. [facility], [place], [place]: February 2015. Performed By: #### I JOHAN, TSH, B12, B1WB, VITD, PTHI, LIPB, SERFOL ####[address] [phone] Hemoglobin A1con 12-14-2020 Glucose [Mass/Vol] 128 mg/dL Normal [facility] Comment on above: Result Comment: eAG: (Estimated average glucose) is a calculated value from HgbA1c and is customer service representative teacher of the average blood glucose level in the last 2-3 month period. Performed By: #### H BA1C ####[address] [phone] HbA1c (Bld) [Mass fraction] 6.1 % High 4.3-5.6 [facility] Comment on above: Result Comment: Amer [place] Diabetes Association guidelines indicate that patients with HgbA1c in the range 5.7-6.4% are at increased risk for development of diabetes, and intervention by lifestyle modification may be beneficial. HgbA1c greater or equal to 6.5% is considered diagnostic of diabetes. Performed By: #### H BA1C ####[address] [phone] Iron and TIBCon 12-14-2020 Iron [Mass/Vol] 53 ug/dL Normal 41-186 [facility] Comment on above: Performed By: #### I JOHAN, TSH, B12, B1WB, VITD, PTHI, LIPB, SERFOL ####[address] [place], [place] [phone] TIBC 307 ug/dL Normal 232-386 [facility] Comment on above: Performed By: #### I JOHAN, TSH, B12, B1WB, VITD, PTHI, LIPB, SERFOL ####[address] [phone] Transferrin Saturatn 17 % Normal 15-57 [facility] Comment on above: Performed By: #### I JOHAN, TSH, B12, B1WB, VITD, PTHI, LIPB, SERFOL ####[place] [address] [place], [place] [phone] Lipid Panel, Basicon 021 Cholesterol [Mass/Vol] 238 mg/dL High <200 [facility] Comment on above: Result Comment: <200 mg/dL, Desirable 200-239 mg/dL, Borderline high >239 mg/dL, High Performed By: #### I JOHAN, TSH, B12, B1WB, VITD, PTHI, LIPB, SERFOL ####[address] [phone] Cholesterol in HDL [Mass/Vol] 42 mg/dL Normal >39 [facility] Comment on above: Result Comment: 40-5 9 mg/dL, Acceptable >59 mg/dL, High: Negative risk factor for coronary heart disease <40 mg/dL, Low: Positive risk factor for coronary heart disease Performed By: #### I JOHAN, TSH, B12, B1WB, VITD, PTHI, LIPB, SERFOL ####[address] [phone] Cholesterol in LDL [Mass/Vol] 162 mg/dL High <100 [facility] Comment on above: Result Comment: <100 mg/dL, Optimal 100-129 mg/dL, Near optimal/above optimal 130-159 mg/dL, Borderline high 160-189 mg/dL, High >189 mg/dL, Very high Secondary prevention optimal LDL Cholesterol levels are recommended to be < 70 mg/dL Performed By: #### I JOHAN, TSH, B12, B1WB, VITD, PTHI, LIPB, SERFOL ####[address] [phone] Fasting Time 12 hrs Normal [facility] Comment on above: Performed By: #### I JOHAN, TSH, B12, B1WB, VITD, PTHI, LIPB, SERFOL ####[facility] [place], [place] [phone] LDL:HDL Ratio 3.86 High <2.54 [facility] Comment on above: Result Comment: Bernardino renae: 1. National Cholesterol Education Program ATP III Guideline At-A-Glance Quick Desk Reference: National Heart, Lung, and Blood [place]. National Institutes of Health. 2001: NIH Publication No. 01-3305. 2. An International Atherosclerosis Society position paper: global recommendations for the management of dyslipidemia: executive summary, Atherosclerosis. 2014: 232(2):410-413. Performed By: #### I JOHAN, TSH, B12, B1WB, VITD, PTHI, LIPB, SERFOL ####[address] [phone] Non HDL Cholesterol 196 mg/dL High <130 [facility] Comment on above: Result Comment: <130 mg/dL, Optimal 130-159 mg/dL, Near optimal/above optimal 160-189 mg/dL, Borderline high 190-219 mg/dL, High >219 mg/dL, Very high Secondary prevention optimal non HDL Cholesterol levels are recommended to be < 100 mg/dL Performed By: #### I JOHAN, TSH, B12, B1WB, VITD, PTHI, LIPB, SERFOL ####[address] [phone] TC:HDL Ratio 5.67 High <5.10 [facility] Comment on above: Performed By: #### I JOHAN, TSH, B12, B1WB, VITD, PTHI, LIPB, SERFOL ####[place] [address] [place], [place] [phone] Triglyceride [Mass/Vol] 169 mg/dL High <150 [facility] Comment on above: Result Comment: <150 mg/dL, Normal 150-199 mg/dL, Borderline high 200-499 mg/dL, High >499 mg/dL, Very high Performed By: #### I JOHAN, TSH, B12, B1WB, VITD, PTHI, LIPB, SERFOL ####[place] [address] [place] [phone] VLDL Cholesterol 34 mg/dL High <30 [facility] Comment on above: Performed By: #### I JOHAN, TSH, B12, B1WB, VITD, PTHI, LIPB, SERFOL ####[place] [phone] Nicotine/Metab, Uron 021 3 [place] COTININE,UR,QNT <50 Normal [facility] Comment on above: Performed By: #### U NICOT ####[facility] [address] [place] [address] [phone] [place], [place] [phone] Ur Anabasine Quant <5 Normal [facility] Comment on above: Performed By: #### U NICOT ####[facility] [address] [place] [address] [phone] [place], [place] [phone] Ur Cotinine Quant <15 Normal [facility] Comment on above: Performed By: #### U NICOT ####[facility] [address] [place] [address] [phone] [place], [place] [phone] Ur Nicotine Quant <15 Normal [facility] Comment on above: Result Comment: (NOT E) INTERPRETIVE INFORMATION: Nicotine and Metabolites, Urine, Quantitative Methodology: Quantitative Liquid Chromatography-Tandem Mass Spectrometry Positive cutoff: Nicotine 15 ng/mL Cotinine 15 ng/mL 9-BV-Ayfdpvfh 50 ng/mL Anabasine 5 ng/mL For medical [...] developed and its performance characteristics determined by [employer]. It has not been cleared or approved by the US Food and Drug Administration. This test was performed in a CLIA certified laboratory and is intended for clinical purposes. Performed By: [employer] [address] [place] [id number] Vice President Network: Norma Guerra MD Performed By: #### U NICOT ####[address] [phone] [address] [address], [place] [phone] Ur Nornicotine Quant Testing is no longer included in the battery. Normal [facility] Comment on above: Performed By: #### U NICOT ####[address] [phone] [address] [place], [place] [phone] PTH, Intacton 12-14-2020 PTH, Intact 72 pg/mL High 15-65 [facility] Comment on above: Performed By: #### I JOHAN, TSH, B12, B1WB, VITD, PTHI, LIPB, SERFOL ####[place] [address] [place], [place] [phone] TSHon 12-14-2020 TSH Qn 0.531 m[IU]/L Normal 0.270-4.200 [facility] Comment on above: Performed By: #### I JOHAN, TSH, B12, B1WB, VITD, PTHI, LIPB, SERFOL ####[place] [address] [address] [place], [place] [phone] Type and SCR (30D)on 021 ABO/RH(D) Positive Normal [facility] Comment on above: Performed By: #### T SCR30 ####[facility] [place], [place] [phone] Vitamin B1, Whole Blon 12-14 Vitamin B1 (TDP), WB 198.9 nmol/L Normal 84.0-213.0 [facility] Comment on above: Result Comment: This assay measures the concentration of thiamine diphosphate (TDP), the primary active form of vitamin B1. Approximately 90 percent of vitamin B1 present in whole blood is TDP. Thiamine and thiamine monophosphate, which comprise the remaining 10 percent, are not measured. This test was developed and its performance characteristics determined by [facility]'s [facility] [place] ( [facility]). It has not been cleared or approved by the FDA. [facility] [place] is regulated under CLIA as qualified to perform high complexity testing. This test is used for clinical purposes. It should not be regarded as investigational or for research. Performed By: #### I JOHAN, TSH, B12, B1WB, VITD, PTHI, LIPB, SERFOL ####[facility] [place], [place] [phone] Vitamin B12on 12-14-2020 Cobalamin (Vitamin B12) [Mass/Vol] 929 pg/mL Normal 232-1245 [facility] Comment on above: Performed By: #### I JOHAN, TSH, B12, B1WB, VITD, PTHI, LIPB, SERFOL ####[facility] [address] [place], [place] [phone] Vitamin D 25 Hydroxyon 12-14 Vitamin D 25 Hydroxy 26.7 ng/mL Low 31.0-80.0 [facility] Comment on above: Result Comment: Clas sification of 25 [place] Vitamin D status: Insufficiency/Moderate Deficiency: < or = 30 ng/mL Sufficiency/Optimal Levels: 31 to 80 ng/mL Toxicity: > 100 ng/mL Test performed by chemiluminescent immunoassay. Performed By: #### I JOHAN, TSH, B12, B1WB, VITD, PTHI, LIPB, SERFOL ####[facility] [address] [place], [place] [phone] HISTORY PHYSICALon HISTORY PHYSICAL HNO ID: [id number] Author: Shani Cabrales APRN.AVIATION CONSULTANT Service: ? Author Type: Nurse Practitioner Type: HANDP Filed: 12/12/2020 12:23 PM Note Text: PREANESTHESIA CONSULT CLINIC TELEHEALTH VISIT Patient has been identified by name and date of : Yes This is a virtual visit using ESCAPESwithYOU video visit. It require patient-provider interaction for [...] have LAPAROSCOPIC ADRENALECTOMY laparoscopic ultrasound. Pt takes Bomont for chronic pain. Pain management per Tawnya [...] fevers. Neuro: No history of TIA's, stroke, INSOLE AND OUTSOLE SPLITTER tumor, impaired sensorium, hemiplegia, paraplegia or quadraplegia. No neurological symptoms or problems. Respiratory: Positive for NEREIDA resovled with weight loss, per pt retested and resolved NEREIDA, Negative for Current cough Cardiovascular: No history of HTN requiring medication, no history of angina, CHF, SC, cardiac surgery or stents. Denies rest pain, [...] and p (more content not included)... Normal [facility] Free Paco, UR LCMSMSon 11-21 Collect Lgth, UFRCRT 24 Normal [facility] Comment on above: Performed By: #### U FRCRT ####[facility] [address] [place] [address] [phone] Ville [address] [place] [phone]#### PV ####[place] [address] [place] [phone] Creatinine [Mass/Vol] 81 mg/dL Normal [facility] Comment on above: Performed By: #### U FRCRT ####[facility] [address] [place] [address] [phone] Ville [address] [place] [phone]#### PV ####[place] [address] [place] [phone] Total Volume, UFRCRT 1532 Normal [facility] Comment on above: Performed By: #### U FRCRT ####[facility] [address] [place], [place] [phone] Ville [address] [place] [phone]#### PV ####[place] [address] [place] [phone] UR Paco Free Interp SEE NOTE Normal [facility] Comment on above: Result Comment: (NOT E) INTERPRETIVE INFORMATION: Cortisol Urine Free by LC-MS/MS Access complete set of age- and/or gender-specific reference intervals for this test in the [facility] Test Directory (2U). This test was developed and its performance characteristics determined by [facility]. It has not been cleared or approved by the US Food and Drug Administration. This test was performed in a CLIA certified laboratory and is intended for clinical purposes. Performed by [facility], [address] [place] [id number] [email or web address], Norma Guerra MD, Lab. Director Performed By: #### U FRCRT ####[address] [phone] Ville [phone]#### PV ####[place] [address] [place] [phone] UR Paco Free ug/d 24.8 ug/d Normal <=45.0 [facility] Comment on above: Performed By: #### U FRCRT ####[address] [phone] Ville [address] [place] [phone]#### PV ####[place] [address] [place] [phone] UR Paco Free ug/L 16.20 ug/L Normal [facility] Comment on above: Performed By: #### U FRCRT ####[address] [phone] Ville [address] [place] [phone]#### PV ####[place] [address] Av[place], [place] [phone] UR Cortisol ug/g audio/visual operator 20.00 ug/g TELEVISION ANNOUNCER Normal [facility] Comment on above: Result Comment: (NOT E) Reference Interval: Cortisol ug/g audio/visual operator Female Prepubertal: Less than 25 ug/g audio/visual operator 18 years and older: Less than 24 ug/g audio/visual operator : Less than 59 ug/g audio/visual operator Male Prepubertal: Less than 25 ug/g audio/visual operator 18 years and older: Less than 32 ug/g audio/visual operator Performed By: #### U FRCRT ####[facility] [address] [phone] [facility]vue Hospital[address] AveCPige[place], [place] [phone]#### PV ####[place] [address] [place], [place] [phone] UR,Creatinine mg/day 1241 mg/d Normal 500-1400 [facility] Comment on above: Performed By: #### U FRCRT ####[address] [phone] Ville [address] AveCPigeon [place], [place] [phone]#### PV ####[place] [address]av[address] [place] [phone] Period / Volumeon 11-21-2020 Collection End Date [id number] [facility] Comment on above: Performed By: #### P V ####[place] [address] [place], [place] [phone] Performed By: #### U FRCRT ####[address] [phone] [facility]vue Hospital[address] AveCPigeon [place], [place] [phone]#### PV ####[facility]CPigeon [place], [place] [phone] Collection End Time 0700 Normal [facility] Comment on above: Performed By: #### P V ####[place] [address]CP[address] [place], [place] [phone] Performed By: #### U FRCRT ####[address] [phone] [facility] Hospital[address] AveCDavid Ville [phone]#### PV ####[facility] Ave[address]av[address] [place] [phone] Collection Start Date Normal [facility] Comment on above: Performed By: #### P V ####[place] [address]CDavid [place] [phone] Performed By: #### U FRCRT ####[address] [phone] Ville [address] AvTyler [place] [phone]#### PV ####[place] [address] AveCDav[address] [place] [phone] Collection Start Time 0700 Normal [facility] Comment on above: Performed By: #### P V ####[place] [address] AvT[address] [place] [phone] Performed By: #### U FRCRT ####[address] [phone] [facility]vue Hospital[address] AveCDavid Ville [phone]#### PV ####[facility] AveCDavid [place] [phone] Period 24 hr Normal [facility] Comment on above: Performed By: #### P V ####[place] [address]av[address] [place] [phone] Performed By: #### U FRCRT ####[address] [phone] [facility] Hospital[address] [place], [place] [phone]#### PV ####[address] [phone] Volume 1532 mL Normal [facility] Comment on above: Performed By: #### P V ####[address] [phone] Result Comment: Melanie ected on 11/25 AT 1245: Previously reported as 1550 Performed By: #### U FRCRT ####[facility] [place], [place] [phone] [phone]#### PV ####[address] [phone] Solis Renin Ratioon 1 Solis Renin Ratio 1 Normal <4 [facility] Comment on above: Result Comment: An i ncreased Solis/Renin ratio is suggestive, but not diagnostic of primary aldosteronism if aldosterone concentration is >15 ng/dL. Performed By: #### A LDREN, DHEAS ####[address] [phone] Aldosterone 10.4 ng/dL Normal 3.1-35.4 [facility] Comment on above: Result Comment: Norm al [...] ng/dL Performed By: #### A LDREN, DHEAS ####[address] [phone] Direct Renin 7.5 pg/mL Normal [facility] Comment on above: Result Comment: [place] n Reference Range, 41-99 years: Upright: 3.6-81.6 pg/mL Supine: 2.5-45.1 pg/mL Performed By: #### A LDREN, DHEAS ####[facility] [address] [place], [place] [phone] Comp Metabolic Panelon 11-20 Albumin [Mass/Vol] 4.2 g/dL Normal 3.9-4.9 [facility] ALP [Catalytic activity/Vol] 113 U/L Normal 34-123 [facility] ALT [Catalytic activity/Vol] 17 U/L Normal 7-38 [facility] Anion gap [Moles/Vol] 4 mmol/L Low 9-18 [facility] AST [Catalytic activity/Vol] 13 U/L Normal 13-35 [facility] Bilirubin [Mass/Vol] 0.2 mg/dL Normal 0.2-1.3 [facility] Calcium [Mass/Vol] 8.7 mg/dL Normal 8.5-10.2 [facility] Chloride [Moles/Vol] 113 mmol/L High 97-105 [facility] CO2 [Moles/Vol] 21 mmol/L Low 22-30 [facility] Creatinine [Mass/Vol] 0.46 mg/dL Low 0.58-0.96 [facility] eGFR- Amer. >60 Normal [facility] eGFR-All Other Races >60 Normal [facility] Comment on above: Result Comment: eGFR (Estimated [...] GFR. Glucose [Mass/Vol] 155 mg/dL High 74-99 [facility] Comment on above: Result Comment: The [place] Diabetes Association (ADA) provides guidance for cutoff [...] Standards of Medical Care in Diabetes 2016, [place] Diabetes Association. Diabetes Care. 2016.39(Suppl 1). Potassium [Moles/Vol] 3.8 mmol/L Normal 3.7-5.1 [facility] Protein [Mass/Vol] 6.7 g/dL Normal 6.3-8.0 [facility] Sodium [Moles/Vol] 138 mmol/L Normal 136-144 [facility] Urea nitrogen [Mass/Vol] 20 mg/dL Normal 7-21 [facility] DHEA-Son 11-20-2020 DHEA-S 17.9 ug/dL Low 18.9-205.0 [facility] Comment on above: Result Comment: Refe rence ranges are age and gender specific. For additional information, reference range tables can be found in the laboratory test directory. The normal values are based on the following source: Dehydroepiandrosterone sulfate (DHEA S) [package insert V 17.0 [place]]. [facility], [place], [place]: November 2012. Performed By: #### A LDREN, DHEAS ####[facility] [place], [place] [phone] Metanephrines,Fr Plason 11-11 Metanephrine, Fr Plas 30 pg/mL Normal 12-67 [facility] Comment on above: Result Comment: Refe rence Ranges: Hypertensive adult > or = 18 yrs old: 12-72 pg/mL Normotensive adult > or = 18 yrs old: 12-67 pg/mL Normotensive children < 18 yrs old: 10-95 pg/mL This test was developed and its performance characteristics determined by [facility]'s [facility] [place] ( [facility]). It has not been cleared or approved by the FDA. [facility] is regulated under CLIA as qualified to perform high complexity testing. This test is used for clinical purposes. It should not be regarded as investigational or for research. Performed By: #### P METAN ####[facility] [place], [place] [phone] Normetanephrine, Fr Plas 60 pg/mL Normal 18-101 [facility] Comment on above: Result Comment: Refe rence [...] developed and its performance characteristics determined by [facility]'s [facility] [place] ( [facility]). It has not been cleared or approved by the FDA. [facility] is regulated under CLIA as qualified to perform high complexity testing. This test is used for clinical purposes. It should not be regarded as investigational or for research. Performed By: #### P METAN ####[facility] [place], [place] [phone] CT-CT ABDOMEN WO/W CON - OVE RREADon [...] DIVERTICULUM WITH ASSOCIATED DEPENDENT CALCIFICATION/MILK OF CALCIUM. Ice Delivery Driver: CHOLO Transcribe Date/Time: Nov 12 2020 5:43P Dictated by : MILLI TRISTAN MD This examination was interpreted and the report reviewed and electronically signed by: MILLI TRISTAN MD on Nov 12 2020 5:55PM EST [id number] Normal [facility] CT-CT ABDOMEN WO/W CON IMPOR Ton 11-08-2020 CT-CT ABDOMEN WO/W CON IMPORT Images were obtained outside of [facility] [id number] Normal [facility] Chadd 11-01-2020 HARDYN Telephone (FVGBMI) JESSICA DILLARD ([id number]) 1965 F Date Time Provider Department 11/01/20 JESUS RAMIREZGBMI During your visit today, we recorded the following information about you: Zev Jean Baptiste [facility] Patient Service Spec 11/01/2020 3:15 PM Signed Pt called back with fax # for [facility]. Number is [phone]. Adrianna Dionne Pss 11/02/2020 1:23 PM Signed Patient requesting to be notified once needed lab order and CT Adrenal order has been faxed to [facility]. Okay to leave voice message through #[phone]. Please advise. Ysabel Linton Pss 11/06/2020 9:04 AM Addendum Faxed orders for CT adrenal and Creatinine draw to [facility] at [phone]. Left message for patient on her cell phone to make her aware. Ysabel Linton Pss Allergies As of Date: 11/01/2020 Noted Allergy Reaction CIPROFLOXACIN 10/19/2020 16 - Unknown Date Reviewed: 10/19/2020 Reviewed by: Maris Caruso RN - Fully Assessed Reason for Visit: Patient Question [1477] Primary Visit Diagnosis:Adrenal nodule (HCC) [E27.8] Order(s):CREATININE BLD [SQCRET] Order #: [id number] FUTURE Prescriptions as of 11/06/2020 - VITAMIN [...] Encounter Status:Closed by JESUS RAMIREZ on 11/05/[address] [facility] HISTORY PHYSICALon HISTORY PHYSICAL HNO ID: [id number] Author: Shade Hilton MD Service: General Surgery [...] 19, 2020 TIME: 9:50 AM PAGER/CONTACT #: [phone] [facility] NURSING PROGon 10-19-2020 NURSING PROG HNO ID: [id number] Author: Maris Caruso RN Service: ? Author [...] (RECOMMENDATION): None Electronically Signed By: Maris Coronel [facility] SURGICAL PATHOLOGYon 021 SURGICAL PATHOLOGY Specimen originated from [facility] Specimen #: [id number] Submitting Physician: Jesus Ramirez M.D. FINAL DIAGNOSIS 1. Stomach, body, [...] in one cassette. Gross examination performed at [facility], [address] [place] [address] 10/19/2020 5:46:23 PM Date of Report: 10/22/2020 Date of Procedure: 10/19/2020 Date of Receipt: 10/19/2020 Submitted by: Jesus Ramirez M.D. Location: END Diagnostic interpretation performed at [facility], [address] [place] [address]. CLIA Number: [id number] [facility] 09-13-2020 CNPN Telephone (GENBMI) JESSICA DILLARD ([id number]) 1965 F Date Time Provider Department 09/13/20 STELLA PIKE GENBMI During your visit today, we recorded the following information about you: Johanna Kimball [facility] 09/13/2020 12:48 PM Signed Pt had blood [...] Encounter Status:Closed by JOHANNA GALEANA on 10/05/20 [facility] 09-12-2020 CNPN Telephone ([facility]) JESSICA DILLARD ([id number]) 1965 F Date Time Provider Department 09/12/20 PAUL NJ [facility] During your visit today, we recorded the following information about you: Wendie Jean 09/12/2020 1:03 PM Signed Patient called with questions regarding recent lab work return call to [phone] Barbara Dan RN 09/12/2020 1:47 PM Signed Patient called inquiring if we had received lab work from an outside facility which Dr. Pike had requested d/t her elevated cholesterol. Let her know that I did not see anything scanned into [facility] and that she may call Dr. Pike's office to see if he had received this. She is in agreement with same. Allergies As of Date: 09/12/2020 (No Known Allergies) Date Reviewed: 08/02/2020 Reviewed by: Deborah Ch - Fully Assessed Reason for Visit: Patient Question [7127] Prescriptions as of 09/12/2020 Sig: PANTOPRAZOLE 40 [...] Status:Closed by GISSEL BARBARA on 09/12/20 Normal [facility] COVID-19 Antigenon COVID-19 Antigen Results called at [...] its performance Maryellen Disclaimer characteristic determined by [employer] and Maryellen Disclaimer validated at [facility]. This Maryellen Disclaimer test has not been [...] is terminated or revoked sooner. PERFORMED BY: [place] [address] PATHOLOGIST DISABILITY INSURANCE HEARING OFFICER DAVID THOMAS M.D. Normal [facility] Comment on above: Performed By: #### S OFIAPOS, COVID-19 MARYELLEN #### [facility] [address] [place] [address] Maryellen Ag Positiveon 06-26-19 21 Maryellen Ag Positive Positive Normal Negative [facility] Comment on above: Result Comment: This is a duplicate Maryellen SARS Antigen (ZARINA) result to be used for statistical tracking purpose only. PERFORMED BY: [place] [address] PATHOLOGIST DISABILITY INSURANCE HEARING OFFICER DAVID THOMAS M.D. Performed By: #### S OFIAPOS, COVID-19 MARYELLEN #### [facility] [address] [place] [address] Reminderson 01-10-2019 Reminders - From: Venkatesh Rodas MD To: King Lawson; Sent: 01/10/2019 10:21:54 EDT Show up: 01/10/2019 10:22:00 EDT Subject: Colonoscopy reminder Reminder/Recall Repeat colonoscopy in 5 years Normal [facility] Coding Summary.on 12-17-2018 Coding Summary. CODING DATE: 019 FINAL [facility] STATUS: Home (Routine DC) PAYOR: Medicaid [facility] DESCRIPTION 0081 ECHOCARDIOGRAPHY ADMIT DX: [...] CphT Date Saved: 12/17/2018 07:41 am Normal [facility] Echo Transthoracic Completeo n 12-17-2018 Echo Transthoracic Complete Echocardiology Procedure Exam Date/Time Accession # Ordering Echo Transthoracic 12/16/2018 16:00 EDT [id number] GLENDY OSORIO, STELLA Complete CPT code 63678 Reason for Exam (Echo Transthoracic Complete) ABNORMAL, [...] # Ordering Echo Transthoracic 12/16/2018 16:00 EDT [id number] STELLA PIKE MD Complete Report Mitral valve: [...] MD Transcribed by: kandi Technologist: YAMILET Coronel [facility] Coding Summary.on 10-21-2018 Coding Summary. CODING DATE: 019 FINAL [facility] DSC STATUS: Home (Routine DC) PAYOR: [...] PROC EAPG STAT DESCRIPTION DOCTOR NAME DATE [id number] Gerry Cueva MD, [facility] 10/18/2018 phagogastroduodenoscopy, flexible, transoral; with biopsy, single or multiple [id number] 0137 Colonoscopy, flexible; Gerry Cueva MD, [facility] 10/18/2018 with removal of tumor(s), polyp(s), or other lesion(s) by snare technique PT Colorectal cancer screening test; converted to diagnostic test or other procedure 76482 0137 Colonoscopy, flexible; Gerry Cueva MD, [facility] 10/18/2018 with directed submucosal injection(s), any substance PT Colorectal cancer screening test; converted to diagnostic test or other procedure 11609 Anesthesia for combined Mal Brock Jr, DO [...] Revised Date Saved: 10/21/2018 10:48 am Normal [facility] H. Pylori, IgG Abon 10-21-19 19 H. pylori IgG IA Qn (S) 0.24 {index_val} 0.00-0.79 [facility] Comment on above: Result Comment: Nega tive <0.80 Equivocal 0.80 - 0.89 Positive >0.89 Performed at: [address] [id number] PhD Hyacinth Samayoa Performed By: #### [id number] #### Way [facility] [address] [place] [address] Progress Note-Physicianon Progress Note-Physician Patient: JESSICA DILLARD [...] directions or as directed by physician, [id number] Documented Medications Documented Motrin IB: 800 mg, Oral, q6hr, Refills(s) 0, Inflammation metformin: 500 mg, Oral, BID, Refills(s) 0, Blood glucose, Home Medications (3) Active metformin 500 mg, Oral, BID Motrin IB 800 mg, Oral, q6hr Suprep Bowel Prep Kit oral liquid 177 mL, Oral, As Directed Problem list: All Problems Arthritis / SNOMED CT 9312964 / Confirmed Obesity / SNOMED CT 0334183729 / Confirmed Sleep apnea / SNOMED CT 411488447 / Confirmed Resolved: Bronchitis / SNOMED CT 65941020 Resolved: Pneumonia / SNOMED CT 554108457 Histories Past Medical History: Resolved Bronchitis (06647124): Resolved. Pneumonia (386661255): Resolved. Social History Social & Psychosocial Habits Alcohol Comment: 4-5 once a week - 09/30/2018 15:01 - King oCrtez CMA Exercise 09/30/2018 Risk Assessment: Does not exercise Other 09/30/2018 Name: Coffee-2 cups daily Substance Abuse Comment: denies - 09/30/2018 15:01 - King Cortez CMA Tobacco 09/30/2018 Tobacco Use: Former smoker, quit more Smokeless tobacco use: Never Type: Cigarettes. Physical Examination Airway: Mallampati classification: II (soft palate, fauces, uvula visible). Respiratory: Lungs are clear to auscultation. Cardiovascular: Regular rhythm. Neurologic: Alert, Oriented. Plan [place] Society of Anesthesiologists (ASA) physical status classification: Class III. Anesthetic Preoperative Plan Anesthesia: General. . Anesthetic plan, risks, benefits, and alternatives discussed with the patient and/or family. Communication: face to face with (patient 5 minutes, Patient educated on smoking cesstation). Normal [facility] Comment on above: Result Comment: Elec tronically Signed By: Mal Brock Jr, DO\.br\Date and Time Signed: 10/20/18 12:29 EDT Main OR Intraoperative Recor don 10-19-2018 Main OR Intraoperative Record IntraOp Document Type FT Summary Primary Physician: Venkatesh Rodas MD Finalized Date/Time: 10/19/18 06:40:45 Pt. Name: JESSICA DILLARD /Sex: 1965 Female Med Rec #: [id number] Physician: Venkatesh Rodas MD Financial #: [id number] Pt. Type: O Room/Bed: / Admit/Disch: 10/18/18 [...] RN, Fransisca Gregory Role Performed Anesthesiologist of Human Resources Coordinator - Primary Scrub - Primary Record Time [...] Primary Procedure Yes Primary Surgeon [place] Start 10/18/18 14:39:00 Stop 10/18/18 15:14:00 Anesthesia [...] retrieve, 3 ablated) Last Modified By: Donna Mercado RN 10/18/18 15:14:15 Post-Care Text: The patient is free from signs and symptoms of infection Skin Assessment (Pre Procedure) FT Pre-Care Text: Implements protective measures to prevent skin/ tissue injury due to thermal or mechanical sources Evaluates for signs and symptoms of physical injury to skin and tissue Entry 1 Skin Integrity Intact, [place], Warm, and Skin Abnormality No Dry Outcomes [...] Up Outcomes Met? Yes Last Modified By: Donna Mercado RN 10/18/18 06:59:33 Post-Care Text: The [...] RN Patient Status Stable Skin. Condition Intact, [place], Warm, and Dry Airway Maintenance Oxygen in Use? No Outcomes Met? Yes Last Modified By: Donna Mercado RN 10/18/18 06:59:29 Post-Care Text: The patient is free from signs and symptoms of injury related to transfer/transport General Comments: Report given to pacu nurse. THERESA water superintendent Administration FT Pre-Care Text: Verifies allergies, administers prescribed medications and solutions, administers prescribed antibiotic therapy and immunizing agents as ordered, evaluates response to medications Administers prescribed medications and solutions Entry 1 Expiration Date Yes Outcomes Met? Yes Verified Last Modified By: Donna Mercado RN 10/18/18 06:59:24 Post-Care Text: The patient received appropriate medication(s) safely administered during the perioperative period For [facility] please see scanned medication reconcilliation form [...] of infection Case Comments Finalized By: Milka Núñez CST Document Signatures Signed By: Donna Mercado RN 10/18/18 15:18 Donna Mercado RN 10/18/18 15:18 Milka Núñez CST 10/19/18 06:40 Normal [facility] Inpatient Patient Summaryon 10-18-2018 Inpatient Patient Summary [facility] Clinical Discharge Instructions PERSON INFORMATION Name: JESSICA DILLARD [facility]#:[id number] PHYSICIANS Admitting Physician: Venkatesh Rodas MD Attending Physician: Venkatesh Rodas MD PCP: Jose OSORIO, Yaneth Discharge Diagnosis: Comment: PATIENT EDUCATION INFORMATION Instructions: Colonoscopy, Care After Surgery Salam (CUSTOM); Hemorrhoids; Colon Polyps; Esophagogastroduodenoscopy, Care After; Peptic Ulcer Disease; [facility] NSAIDS-Nonsteroidal Anti-Inflammatory Medications (CUSTOM); Esophagitis; Duodenitis Medication Leaflets: Follow up: With: Address: When: Venkatesh Cueva [address] [place] [address] Business (1) 12/16/2018 3:30 PM Type Location [facility] Follow Up [facility] 12/16/2018 3:30 PM 12/16/2018 3:45 PM Confirmed MEDICATION LIST Comment: [place] [facility] Main OR PACU I Recordon Main OR PACU I Record PACU Phase I Document Type FT Summary Primary Physician: Venkatesh Rodas MD Finalized Date/Time: 10/18/18 16:37:42 Pt. Name: JESSICA DILLARD/Sex: 1965 Female Med Rec #: [id number] Physician: Venkatesh Rodas MD Financial #: [id number] Pt. Type: O Room/Bed: / Admit/Disch: 10/18/18 [...] 16:35 Melissa Brown RN 10/18/18 16:37 Normal [facility] Main OR Preoperative Recordo n 10-18-2018 Main OR Preoperative Record Holding Area Document Type FT Summary Primary Physician: Venkatesh Rodas MD Finalized Date/Time: 10/18/18 14:25:35 Pt. Name: JESSICA DILLARD/Sex: 1965 Female Med Rec #: [id number] Physician: Venkatesh Rodas MD Financial #: [id number] Pt. Type: O Room/Bed: / Admit/Disch: 10/18/18 [...] below for reason Last Modified By: Kavya Arango RN 10/18/18 14:21:59 General Comments: Pt completed prep at 1000 and remained NPO since/TED,RN Finalized By: Kavya Arango RN Document Signatures Signed By: Kavya Arango RN 10/18/18 14:25 Normal [facility] Patient Education - Texton 0 10-18-2018 Patient [...] of bright red blood. ? Vomiting of pcsour-kbmwvs-hsarrkq materials. DIAGNOSIS A diagnosis is usually made [...] directed by your caregiver. Do not substitute kgas-dsm-lohykdd medicines for prescription medicines without talking to [...] Document Reviewed: 10/27/2012 ExitCare? Patient Information ?2015 [employer]. This information is not intended to replace [...] ? neck pain Some NSAIDs are available hnua-oke-mqxtvpb, without the need for a prescription. However, [...] than your doctor has prescribed. Follow the arim-ils-ujtjbkd labels and do not exceed the recommended [...] Document Reviewed: 06/08/2012 ExitCare? Patient Information ?2015 [employer]. This information is not intended to replace [...] Document Reviewed: 03/16/2013 ExitCare? Patient Information ?2015 [employer]. This information is not intended to replace [...] pillows will not help. ? Only take mfzv-bwq-ejzfyrm or prescription medicines as directed by your [...] Document Reviewed: 11/28/2011 ExitCare? Patient Information ?2015 [employer]. This information is not intended to replace [...] Garlic. ? Onions. ? Spicy foods. ? Trimble fruits, such as oranges, franky, or limes. ? Foods that use tomato-based sauces, such as pasta sauce, chili, salsa, and pizza. ? Fatty foods. ? Fried foods. Document Released: 07/25/2013 Document Revised: 08/14/2014 Document Reviewed: 07/25/2013 ExitCare? Patient Information ?2014 [employer]. This information is not intended to replace [...] applied as directed. ? ? Only take cvtu-qib-ovxxval or prescription medicines as directed by your [...] Document Reviewed: 02/01/2013 ExitCare? Patient Information ?2014 [employer]. This information is not intended to replace advice given to you by your health care provider. Make sure you discuss any questions you have with your health care provider. Normal [facility] Vital Signs Date Time Vital Sign Value Performing Clinician Julissa melissa 08-28-2021 16:04-0400 SaO2% (BldA) [Mass fraction] 96 % Wyatt Tapia MD Work Phone: [facility] 08-28-2021 15:56-0400 Body temperature 97.81 [degF] Wyatt Tapia MD Work Phone: [facility] 08-28-2021 15:56-0400 Diastolic blood pressure 85 mm[Hg] Wyatt Tapia MD Work Phone: [facility] 08-28-2021 15:56-0400 Heart rate 99 /min Wyatt Tapia MD Work Phone: [facility] 08-28-2021 15:56-0400 Respiratory rate 14 /min Wyatt Tapia MD Work Phone: [facility] 08-28-2021 15:56-0400 Systolic blood pressure 137 mm[Hg] Wyatt Tapia MD Work Phone: [facility] 08-28-2021 11:00-0400 Body mass index (BMI) [Ratio] 38.52 kg/m2 Wyatt Tapia MD Work Phone: [facility] 08-28-2021 11:00-0400 Body weight 101.8 kg Wyatt Tapia MD Work Phone: [facility] 08-26-2021 10:00-0400 Body height 162.6 cm Wyatt Tapia MD Work Phone: [facility] Encounters Encounter Date Encounter Type Care Provider Facility Start: 10-16-2022 ambulatory NARNEILATH ROMAINESHMIPATHY . Facility:[facility] Start: 07-29-2022 ambulatory NARBRI PENNMIPATHEvens . Facility:[facility] Start: 07-24-2022 End: 07-25-2022 ambulatory ROSI PENNMIPATHY . Facility:[facility] Start: 07-03-2022 End: 07-04-2022 ambulatory ROSI CORLEY . Facility:[facility] Start: 05-01-2022 End: 05-02-[address] KAITLIN WILHELM . Facility:[facility] Start: 04-22-2022 Encounter for preprocedural laboratory examination DR KAITLIN WILHELM . [facility] Start: 04-01-2022 End: 04-01-[address] YANETH [...] abnormal findings DR YANETH AN . [facility] Start: 11-19-2021 End: 11-20-[address] YANETH AN . Facility:[facility] Start: 11-19-2021 End: 11-20-2021 Encounter for general adult medical examination without abnormal findings DR YANETH AN . Facility:[facility] Start: 10-10-2021 End: 10-11-[address] KAITLIN WILHELM . Facility:[facility] Start: 08-30-2021 End: 09-28-[address] DOCTOR THOMAS Facility:[facility] Start: 08-28-2021 End: 08-28-2021 ambulatory WYATT TAPIA [facility] Start: 08-28-2021 End: 08-28-2021 Evaluation and management of inpatient Wyatt Tapia MD Work Phone: [facility] Start: 08-28-2021 End: 08-28-2021 Subsequent hospital visit by physician Wyatt Tapia MD Work Phone: [facility] Start: 08-26-2021 End: 08-27-[address] [...] above: Performed By: #### T SCR30 ####[id number] [place], [place] [phone] Start: 12-14-2020 Antibody screen Comment on above: Performed By: #### T SCR30 ####[facility] [place], [place] [phone] Plan of Treatment Date Care Activity Detail Author Start: 12-14-2025 LIPID SCREEN LIPID SCREEN [facility] Start: 03-22-2024 DIABETES SCREEN DIABETES SCREEN [facility] Start: 08-02-2022 Hypertension/CHF/CAD Annual BMP Blood Test Hypertension/CHF/CAD Annual BMP Blood Test [facility] Start: 08-28-2021 End: 08-28-2021 Arthrp acetblr/prox fem prostc agrft/algrft ARTHROPLASTY HIP TOTAL Unilateral primary osteoarthritis, right hip 08/28/2021 12:57 PM EDT [facility] Main OR Start: 07-01-2021 Adolescent depression screening assessment Depression Screening [facility] Start: 07-01-2021 Hepatitis C screening Hepatitis C Screening [facility] Start: 07-01-2021 HIV screening HIV Screening [facility] Start: 07-01-2021 Lipid panel Cholesterol Screening (Lipid Panel) [facility] Start: 07-01-2021 Screening for malignant neoplasm of breast Breast Cancer Screening [facility] Start: 07-01-2021 Screening for malignant neoplasm of colon Colorectal Cancer Screening: Colonoscopy [facility] Start: 07-01-2021 Screening for malignant neoplasm of lung Lung Cancer Screening (Low Dose CT) [facility] Start: 07-01-2021 Social Influencers of Health Screening Social Influencers of Health Screening [facility] Start: 07-17-2019 Influenza vaccination LUNG CANCER SCREENING [facility] Start: 2014 SHINGRIX VACCINE (1 of 2) SHINGRIX VACCINE (1 of 2) [facility] Start: 2014 Zoster Vaccines (1 of 2) Zoster Vaccines (1 of 2) [facility] Start: 2009 COLOGUARD (FIT-DNA) COLOGUARD (FIT-DNA) [facility] Start: 2009 Colonoscopy COLONOSCOPY [facility] Start: 2009 COLORECTAL CANCER SCREENING COLORECTAL CANCER SCREENING [facility] Start: [address] COLONOGRAPHY [facility] Start: 2009 FECAL OCCULT BLOOD FECAL OCCULT BLOOD [facility] Start: 2009 SIGMOIDOSCOPY SIGMOIDOSCOPY [facility] Start: 2004 Mammography MAMMOGRAM [facility] Start: 1994 HPV TESTING HPV TESTING [facility] Start: 1985 PAP TESTING PAP TESTING [facility] Start: 1985 Screening for malignant neoplasm of cervix Cervical Cancer Screening: Pap Smear [facility] Start: 07-17-1983 DTaP,Tdap,and Td Vaccines (1 - Tdap) DTaP,Tdap,and Td Vaccines (1 - Tdap) [facility] Start: 07-17-1983 Urine microalbumin profile DTAP,TDAP,TD (1 - Tdap) [facility] Start: 1982 HEPATITIS C SCREENING HEPATITIS C SCREENING [facility] Start: 1982 HIV SCREENING HIV SCREENING [facility] Start: 1976 Adult depression screening assessment DEPRESSION SCREENING [facility] Glucose [Mass/volume ] in Serum or Plasma POCT Glucose, blood Point of Care Testing-Docked Device Routine 08/28/2021 3:42 PM EDT [facility] Work Phone: Immunizations Immunization Date Immunization Notes Care Provider Fa cili 12-28-2020 influenza, injectabl e, quadrivalent, preservative free Paul Nj MD Work Phone: [facility] Payers Date Payer Category Payer Medicaid [id number] 2020 Medicaid [id number] 1965 Unknown [id number] 2.16.8 [id number] 1965 Unknown [id number] 2.16.84 0.1.959933.3.579.2.593 1965 Unknown [id number] 2.16.84 0.1.341234.3.579.2.593 1965 Unknown [id number] 2.16.84 0.1.445533.3.579.2.593 1965 Unknown [id number] 2.16.84 0.1.209336.3.579.2.593 1965 Unknown [id number] 2.16.84 0.1.124086.3.579.2.593 1965 Unknown [id number] 2.16.84 0.1.471604.3.579.2.593 1965 Unknown [id number] 2.16.84 0.1.807996.3.579.2.593 1965 Unknown [id number] 2.16.84 0.1.230419.3.579.2.593 1965 Unknown [id number] 2.16.84 0.1.086629.3.579.2.593 1965 Unknown [id number] 2.16.84 0.1.672510.3.579.2.593 1965 Unknown [id number] 2.16.84 0.1.619170.3.579.2.593 1965 Unknown [id number] 2.16.84 0.1.221368.3.579.2.593 1965 Unknown [id number] 2.16.84 0.1.969487.3.579.2.593 1965 Unknown [id number] 2.16.84 0.1.961465.3.579.2.593 1965 Unknown [id number] 2.16.84 0.1.180301.3.579.2.593 1965 Unknown [id number] 2.16.84 0.1.125836.3.579.2.593 1965 Unknown [id number] 2.16.84 0.1.348010.3.579.2.593 1965 Unknown [id number] 2.16.84 0.1.747464.3.579.2.593 1965 Unknown [id number] 2.16.84 0.1.993727.3.579.2.593 1965 Unknown [id number] 2.16.84 0.1.878690.3.579.2.593 1960 Medicaid [id number] Social History Date Type Detail Facility Start: 12-12-2020 End: 08-26-2021 Tobacco smoking status NHIS Ex-smoker [facility] Work Phone: Start: 08-27-2015 End: 04-13-2018 History of tobacco use Current smoker [facility] Work Phone: End: 04-13-2018 History of tobacco use Cigarette Smoker [facility] Work Phone: Start: 12-12-2020 Cigarettes smoked current (pack per day) - Reported 1 [facility] Start: 12-12-2020 End: 08-26-2021 Tobacco use and exposure Smokeless tobacco non-user [facility] Work Phone: Start: 12-12-2020 History SDOH Alcohol Comment 2-3 per month [facility] Start: 1965 Sex Assigned At Female C [facility] Start: 08-28-2021 Alcohol intake Ex-drinker (finding) [facility] Start: 1965 Sex Assigned At Not on file T [facility] Start: 08-18-2021 End: 08-28-2021 Exposure to SARS-CoV-2 (event) Not sure [facility] Medical Equipment Procedure Code Equipment Code Equipment Origin al Text Equipment Identifier Dates G7 Finned 4 H Sh ell 54mm F - Sn/A - [id number] ()[id number] [id number]( 21)N/A, [id number] FDA Start: 08-28-2021 Liner G7 Neutral Ve 36mm F - Sn/A - [id number] ()[id number] [id number] (21)N/A, [id number] FDA Start: 08-28-2021 G7 Screw 6.5mm X 30mm - Sn/A - [id number] ()[id number] [id number]( 21)N/A, [id number] FDA Start: 08-28-2021 Complete Ho Collarless Sz 6 - Sn/A - [id number])[id number] [id number]( 21)N/A, [id number] FDA Start: 08-28-2021 Hip Hd Fem 03/26 Blx 36mm -3.5 - Sn/A - [id number] ()[id number] [id number]( 21)N/A, [id number] FDA Start: 08-28-2021 Clinical Notes 07-30-2020 to 07-24-2022 Shani Matamoros, RN - 08/28/2021 5:33 PM EDAlli Hyman, PT - 08/28/2021 4:30 PM Jaxno Hall RN - 08/28/2021 1:48 PM EDAna [...] be discharged home after meeting criteria. [facility] 07-03-2022 Note CONSULTATION CONSULTATION DATE: 07/03/2022 TO: [...] p.o. daily to b.i.d., as well as Bomont 5 mg b.i.d., activity modification and a home exercise program. She reports she does respond to baclofen 10 mg at h.s. RECOMMENDATIONS: I have recommended a right knee joint injection. We will obtain urine toxicology screen at today's visit. [facility] 05-01-2022 Note CONSULTATION CONSULTATION DATE: 05/01/2022 HISTORY [...] 10 mg q.h.s., Celebrex 200 mg daily, Bomont 5/325 b.i.d. Patient's REVIEW OF SYSTEMS / [...] three months' time unless otherwise indicated. [facility] 03-20-2022 Note CONSULTATION CONSULTATION DATE: 03/20/2022 HISTORY [...] Current medications include Celebrex 200 mg daily, Bomont 5/325 b.i.d., baclofen 10 mg q. h.s [...] heat and vitamins. We will refill her Bomont and baclofen at the set dose and frequency. Patient agrees to move forward with the procedure and will be followed up in the clinic thereafter. [facility] 12-12-2021 Note CONSULTATION CONSULTATION DATE: 12/12/2021 HISTORY [...] Current medications include Celebrex 200 mg daily, Bomont 5/325 b.i.d., baclofen 10 mg q.h.s. and [...] refill for baclofen 10 mg q.h.s and Bomont 5/325 b.i.d. will be sent to her pharmacy. Patient agrees to move forward and be followed up in the clinic post procedure. [facility] 10-10-2021 Note CONSULTATION CONSULTATION DATE: 10/10/2021 This [...] she had a total hip replacement in [place] and feels great relief. Her pain is four out of 10 today. She does have right knee pain with known osteoarthritis and bone on bone to the lateral aspect. She has received a steroid knee injection on 10/07/2021 which gave her a fair amount of relief. Her current medications include Celebrex 200 mg q. day, Baclofen 10 mg q.h.s. and Bomont 5/325 t.i.d. The patient feels she doesn't [...] knee osteoarthritis. PLAN: We will refill her Bomont but decrease the dose to 5/325 b.i.d. [...] of care and all questions were answered. [facility] Signed and Approved by: THERESA WAGNER . 10/17/2021 10:22:00 [facility] 08-28-2021 History of Present illness Narrative Patient [...] bad R knee per report. Pt gait [id number] with antalgic gait pattern. Pt with 1+1 [...] Level of Function: Prior Function Level of Terrell: Independent with mobility and functional transfers Prior [...] Gait Training Activity 1: Gait with FWW [id number] SBA Gait Training Activity 2: Curb step training with FWW cga due to R knee deficits Gait Training Activity 3: Issued FWW and set to proper height, pt signed [facility] paperwork Assessment/Plan PT Assessment PT Assessment/ Barriers [...] of the procedure. documented in this encounter [facility] 08-28-2021 Procedure note Handoff report given to MARCELA Mcleod. [facility]illard 1965 [facility], A Member of [employer] OPERATIVE REPORT PATIENT NAME: Jessica Dillard DATE OF : 1965 CSN: [id number] SURGEON: Wyatt Tapia MD, FACS DATE OF SERVICE: 08/28/2021 DATE OF SURGERY: 08/28/2021 PREOPERATIVE DIAGNOSIS: OA right hip (M16.11) POSTOPERATIVE DIAGNOSIS: OA right hip (M16.11) PROCEDURE: Primary Right Total Hip Arthroplasty utilizing the direct lateral approach (43418) Femoral Component: [employer] Avenir Complete Collarless Stem , High Offset Size: 6 Acetabular Component: G7 4 Hole Finned Acetabular Shell , 54mm Liner: G7 Vivacit-E Neutral, F, 36mm Screws: G7 Acetabular Screw(s) 6.5x30mm (-); Head Neck Unit: [employer] Ceramic Taper , 36mm , -3.5 ATTENDING SURGEON: Wyatt Tapia MD, FACS SOFTWARE DATABASE ARCHITECT: Zafar Rivas PA-C INDICATIONS: Patient is a [...] satisfactory position and alignment of the components. SOFTWARE DATABASE ARCHITECT/ATTENDING PHYSICIAN: Zafar Rivas PA-C assisted with proper [...] He assisted with the dislocation of the jena hip, as well as dislocation/relocation of the [...] Wyatt Tapia MD, FACS on 08/28/2021 16:59:00 [facility], A Member of [facility] OPERATIVE REPORT PATIENT NAME: Jessica Dillard DATE OF : 1965 CSN: [id number] SURGEON: Wyatt Tapia MD, FACS DATE OF SERVICE: 08/28/2021 DATE OF SURGERY: 08/28/2021 REF [id number] LOT [id number] G7 Finned Acetabular Shell 54MM SHELL SIZE F LINER SIZE Acetabular shell Use By 2031-04-19 () [id number] (17 [id number] (49) [id number] REF [id number] LOT [id number] G7 Vivacit-E Size F 36.00 Millimeter Non-constrained polyethylene acetabular liner Use By 2026-07-03 () [id number] (17 [id number] (56) [id number] REF [id number] LOT [id number] G7 ACETABULAR SCREW 6.5MM DIAMETER 30 SCREW LGTH Orthopaedic bone screw, non-bioabsorbable, sterile Use By 2031-06-02 () [id number] (17 [id number] (28) [id number] REF [id number] LOT [id number] Avenir Complete Size 6 Coated hip femur prosthesis, modular Use By 2025-11-28 () [id number] (17) [id number] (54) [id number] REF [id number] LOT [id number] Biolox delta 36/-3.5 'S' BIOLOX DELTA, CERAMIC FEMORAL HEAD, S, 36/-3.5, TAPER /14 Use By 2031-05-22 () [id number] (17 [id number] (55) [id number] . documented in this encounter [facility] 08-28-2021 History and physical note History and Physical Update ( H&P completed within the previous thirty days ) I personally reviewed the History and Physical, interviewed and examined the patient prior to surgery. No changes have occurred in the patient's condition since the History and Physical was completed. documented in this encounter [facility] 08-26-2021 Hospital course Narrative Pre-Surgery Instructions: Medication [...] ordered/prescribed by your pcplast dose 08/21 HYDROcodone-acetaminophen (Bomont) 5-325 mg per tablet Continue to take [...] prior to your surgery. Check in at dental office receptionist desk [address] [place] [address]. If Outpatient, these additional instructions apply: An adult must stay with you the whole time you are here and drive you home. An adult must stay with you at home for 24 hours due to Anesthesia. If you have NEREIDA, you are required to stay 3 hours after your surgery before we can discharge you. documented in this encounter [facility] 05-10-2021 Note HNO ID: [id number] Author: Anila Ellis RD Service: ? Author [...] thiamine) Iron 45-60 mg and calcium citrate 2138-3367 mg/day 2. Protein goal: 74 grams protein/day 3. Fluid goal: 64 ounces per day (no carbonation, caffeine, calories, alcohol) 4. Start to exercise from a sitting position: 20-25 minutes/session 3-4 x per week: Chair or standing Team Body Project https://www.Red Blue Voice.com/watch?v=e 8opMY-SoZc Chair exercise [employer] https://www.Loopt/lita gilbert/videos-detail.asp?video=38 Nida Najera Easy walk in place 15 min https://www.hoozinube.com/watch?v=n qzT57yqdFK Body Project 30 min https://youTapticau.be/J-ZvsO9VA-2 Nida Najera? Higher intensity walk 30 min https://www.hoozinube.com/watch?v=c iGN4BIf1KT 5. Practice mindful eating habits-take small portions, eat slowly, chew thoroughly Nutrition Monitoring AND Evaluation:BMI< 40 Criteria: weight check Need for Follow up: 3 months post op Appointment Start Time: 2:30 PM Appointment End Time: 3:27 PM Time Spent on Consult: 57 minutes - Group Anila Ellis MS,RD,CSOWM,LD [facility] 05-01-2021 Note HNO ID: [id number] Author: Barbara Martines, PhD Service: ? Author Type: Psychologist Type: Progress Notes Filed: 05/09/2021 6:51 AM Note Text: Summary: BMI Psych Post-Op [facility] Cost Center: [facility] Billing code: Conrad CPT Code: 4063194- virtual ([employer] Zoom) Due to the federal emergency declaration and the need for ongoing mental health services, the following visit was completed virtually and informed consent obtained orally to reduce the risk of COVID-19 exposure. Oral consent to services related to virtual visits was obtained after information was sent via ESCAPESwithYOU or read to patient if ESCAPESwithYOU not available. [facility] Progress Note [...] -200 unit pwp (more content not included)... [facility] 04-25-2021 Note HNO ID: [id number] Author: Paul Nj MD Service: ? Author [...] mcg, Iron 45-60 mg and calcium citrate 6012-6115 mg/day Plan: Next visit 6 month post op visit. 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 Author [...] two Extra Strength Tylenol. Wen Bill RN [facility] 03-22-2021 Note Education ([facility]) JESSICA DILLARD ([id number]) 1965 F Date Time Provider Department 03/22/21 WEN BILL (RN) [facility] Reason for Visit: Education Of Patient/family [904] [...] Status:Closed by WEN BILL RN on 03/25/21 [facility] 03-22-2021 Note HNO ID: [id number] Author: Paul Nj MD Service: ? 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 I have also discussed medical [...] had been delayed/postponed (more content not included)... [facility] 01-15-2021 Note HNO ID: [id number] Author: Stella Pike MD Service: ? Author [...] OV BMI/Gorty MEDS: See Epic MEDS: See [facility] Patient-reported medications: -ibuprofen, tylenol prn -has not been taking the metformin (borderline diabetes) -no h/o SC, CHF, no heart problem ? PMH: -DM2-no longer taking metformin- -Vit D3 deficiency -no SC, CAD, CHF, CVA -h/o bronchitis/ and double [...] visit, she began phentermine with Dr. An ([phone]) -presurgical testing-has completed labs; had external abd us ( 10/31/2020-DOS: 10/23/2020)-did show adrenal mass, for which she is following with Drs. Nj and Luis Alfredo - Ext 10/31/2020 CXR DOS: 10/23/2020 (Please see the scanned document in [facility] for the exact report details) - 10/31/2020-Ext EKG DOS: 10/23/2020 (Please see the scanned document in [facility] for the exact report details) convo w patient: -has managed her cholesterol with eating/nutrition -denies any h/o of: SC, CHF, or other heart problems -rec'd her [...] separately reported). Sent messages to navigation team. [facility] 01-07-2021 Note HNO ID: [id number] Author: Jesus Ramirez MD Service: ? Author [...] perspective for bariatric surgery. Jesus Ramirez MD [facility] 12-28-2020 Note HNO ID: [id number] Author: Loren Boyd MD Service: General Surgery Author Type: Resident Type: Progress Notes Filed: 12/28/2020 7:46 AM Note Text: GENERAL SURGERY PROGRESS NOTE Jessica Dillard [id number] ASSESSMENT AND PLAN 55 year old female [...] * LAPAROSCOPIC ADRENALECTOMY - General Loren En lOiver PGY-1 General Surgery [facility] 12-27-2020 Note HNO ID: [id number] Author: Estefany Cook APRN.BUSINESS PERFORMANCE ADVISOR Service: Anesthesiology Author Type: Nurse Mortgage Loan Specialist Type: Anesthesia Procedure Notes Filed: 12/27/2020 1:57 [...] Imaging Guidance Used: No SIGNATURE: Estefany Cook APRN.BUSINESS PERFORMANCE ADVISOR PATIENT NAME: Jessica Dillard DATE: December 27, 2020 TIME: 1:57 PM CSN: [id number] [facility] 12-27-2020 Note HNO ID: [id number] Author: Estefany Cook APRN.BUSINESS PERFORMANCE ADVISOR Service: Anesthesiology Author Type: Nurse Mortgage Loan Specialist Type: Anesthesia Procedure Notes Filed: 12/27/2020 1:56 [...] December 27, 2020 TIME: 1:54 PM CSN: [id number] [facility] 12-27-2020 Note HNO ID: [id number] Author: Estefany Cook APRN.CRNA Service: Anesthesiology Author Type: Nurse Mortgage Loan Specialist Type: Anesthesia Procedure Notes Filed: 12/27/2020 1:52 [...] December 27, 2020 TIME: 1:50 PM CSN: [id number] [facility] 11-30-2020 Note HNO ID: [id number] Author: Anila Silva RN Service: ? Author [...] long-chain polymer containing repeating disaccharide units of Vp-jsdbvktkmzo-C-acetylglucosamin e. [facility] 11-23-2020 Note HNO ID: [id number] Author: Anila Silva RN Service: ? Author [...] two Extra Strength Tylenol. Anila Silva RN [facility] 11-23-2020 Note Education (THERESA) JESSICA DILLARD ([id number]) 1965 F Date Time Provider Department 11/23/20 ANILA SILVA Reason for Visit: Patient Education [91] Progress Notes: Anila Silva RN 11/23/2020 4:42 PM Signed [facility] COORDINATION SURGERY PRE-OP EDUCATION [...] 10/19/2020 Reviewed by: (more content not included)... [facility] 11-22-2020 Note HNO ID: [id number] Author: Anila Silva RN Service: ? Author Type: Registered Nurse Type: Progress Notes Filed: 11/23/2020 8:30 AM Note Text: Confirmed 16 for right adrenalectomy [facility] 11-19-2020 Note HNO ID: [id number] Author: Jesus Ramirez MD Service: ? Author Type: Physician Type: Progress Notes Filed: 11/19/2020 3:11 PM Note Text: VIRTUAL VISIT NEW PATIENT This is a virtual visit using ESCAPESwithYOU video visit. It required patient-provider interaction for [...] requested a second read of this by [facility] radiology. This describes 4.0 x 4.7 cm [...] which included preparing to see the patient, [id number]-[id number] patient care, completing clinical documentation, obtaining and/or reviewing separately obtained history, counseling and educating the patient/family/caregiver, communicating with other HCPs (not separately reported), independently interpreting results (not separately re (more content not included)... [facility] 11-15-2020 Note HNO ID: [id number] Author: Beba Avila RD Service: ? Author Type: Registered Dietitian Type: Progress Notes Filed: 11/15/2020 3:29 PM Note Text: [facility] Nutrition Therapy: Virtual Consult ? Re Assessment [...] session:--not met Link to book as discussed: https://my.[facility].org/-/ scassets/files/org/bariatric/guid es/bmigui debook-september2019.ashx?la=en ? 2.? Do not [...] --met 6. Call the scheduling line at [phone] to schedule a May nutrition visit. As discussed, all follow-up appointments with the dietitian should be in a group class setting. --not met 7. You can have your weight obtained at a doctors visit and fax into the office for your file as we discussed. The fax number is: [phone].--not met ? Pre-op goal weight: 262 pounds [...] From nutrition nimisha (more content not included)... [facility] 11-13-2020 Note HNO ID: [id number] Author: Anila Silva RN Service: ? Author [...] Silva RN November 13, 2020 2:07 PM [facility] 07-22-2021 Note HNO ID: [id number] Author: Anila Silva RN Service: ? Author Type: Registered Nurse Type: Progress Notes Filed: 11/01/2020 12:37 PM Note Text: Spoke to pt - please fax CT order and lab order to her PCP- she will get it done locally- knoew she has to get the images to us prior to appt with Jeannedonnell [facility] 10-30-2020 Note HNO ID: [id number] Author: Saima Del Rosario, PhD Service: ? Author Type: Psychologist Type: Progress Notes Filed: 10/30/2020 11:03 AM Note Text: Consulted w/ Dr. Nj who indicated that the planned procedure is the sleeve. Thus, with one negative nicotine screen, she has completed all psychology requirements. Clearance letter submitted today. Saima Del Rosario, Ph.D. Psychologist [facility] 10-29-2020 Note HNO ID: [id number] Author: Saima Del Rosario, PhD Service: ? Author Type: Psychologist Type: Progress Notes Filed: 10/29/2020 10:22 AM Note Text: Received lab results from [facility] via fax (negative for nicotine on 10/23/20). [...] faxed to ATTN: Dr. Del Rosario at [phone] or e-mail to [email or web address] ? Reply to Dr. Del Rosario's ESCAPESwithYOU message with an update about when/where screens are done Saima Del Rosario, Ph.D. Psychologist [facility] 10-25-2020 Note HNO ID: [id number] Author: Paul Nj MD Service: ? Author [...] Refer to Dr. Luis Alfredo Nj MD [facility] 10-17-2020 Note HNO ID: [id number] Author: Saima Del Rosario, PhD Service: ? Author Type: Psychologist Type: Progress Notes Filed: 10/17/2020 2:48 PM Note Text: [facility] Bariatric Behavioral Services Progress Note October 17, 2020 COST CENTER: [facility] BILLING CODE: Carin CPT Code: 7771187 Virtual Psychotherapy 16-37 minutes Time initiated session: 2:13 PM to 2:46 PM Date of First Session: 07/30/20 (initial evaluation) Session #: 3 Due to the [facility] and [facility] of emergency and the need for ongoing mental health services, the following visit was completed virtually to reduce the risk of COVID-19 exposure. Consent related to virtual visits was previously provided verbally after information was sent via ESCAPESwithYOU or read to patient if MyChart not available. Collateral Parties Present: none. Physical location at time of appointment: Client's house ([facility], [address] [place] [address]) Subjective: The patient has been working on [...] her first lab on either Thursday (at [facility]) or at an outside facility ([place]) on Thursday. Her EGD will determine which [...] forward with surgery. ? Go to any [facility] lab and submit your first nicotine screen. [...] faxed to ATTN: Dr. Del Rosario at [phone] or e-mail to [email or web address] ? Reply to Dr. Del Rosario's ESCAPESwithYOU message with an update about where you [...] how to recon (more content not included)... [facility] 09-07-2020 Note HNO ID: [id number] Author: Saima Del Rosario, PhD Service: ? Author Type: Psychologist Type: Progress Notes Filed: 09/07/2020 4:21 PM Note Text: [facility] Bariatric Behavioral Services Progress Note September 07, 2020 COST CENTER: [facility] BILLING CODE: Carin CPT Code: 3364379 Virtual Psychotherapy 38-52 minutes Time initiated session: 2:10 PM to 3:00 PM Date of First Session: 07/30/20 (initial evaluation) Session #: 2 Due to the [facility] and [facility] and the need for ongoing mental health services, the following visit was completed virtually to reduce the risk of COVID-19 exposure. Consent related to virtual visits was previously provided verbally after information was sent via ESCAPESwithYOU or read to patient if FlexyMindt not available. Collateral Parties Present: none. Location at time of appointment: Parked car outside of client's house ([address], [facility]) Subjective: The patient has been working on [...] at least 1 month, go to any [facility] lab and submit your first nicotine screen. [...] faxed to ATTN: Dr. Del Rosario at [phone] *Follow up w/ Dr. Del Rosario 10/17 at 2:15 (virtual) Reminder to schedule a follow-up appointment with nutrition as well (Appointment scheduling number: [phone]). 2) The patient may benefit from the following during the surgery process: *CPAP adherence as indicated *implement exercise program such as warm water aerobics, walking, or exercise that ca (more content not included)... [facility] 08-24-2020 Note HNO ID: [id number] Author: Paul Nj MD Service: ? Author [...] EGD: Yes. 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 Just got an injection in her hip. 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 OTHER: -08/02/2020-OV Nutrition/Jing -07/30/2020-OV Goodpaster -08/20/2018 OV BMI/Gorty MEDS: See Epic Patient-reported medications: -ibuprofen, tylenol prn -has not been taking the metformin (borderline diabetes) -no h/o SC, CHF, no heart problem PMH: -DM2-on metformin- -Vit D3 deficiency -almost finished with the Lamisil by next week -no SC, CAD, CHF, CVA -h/o bronchitis/ and double [...] locally and results faxed over. -Dr. An-office efnqw-[phone] 2)NEREIDA-she had testing done, and it was abnormal. She had the testing done with [facility] (ordered by Dr. An) -she got [...] sent -elevated cholesterol-adv to f/u c pcp [facility] 08-02-2020 Note HNO ID: [id number] Author: Deborah Ch Service: ? Author Type: Registered Dietitian Type: Progress Notes Filed: 08/03/2020 5:59 AM Note Text: [facility] Nutrition Therapy: Virtual Consult ? Initial Assessment [...] visit this day. Initial weight: 277 lbs. [place] body weight is 125 lbs. Excess body weight is 152 lbs. Goal weight pre-op is 262 lbs. Protein needs are estimated at 68-82 gm (Based on 1.2 - 1.5 g protein/kg IBW) Patient meets the National Institutes of Health guidelines for weight loss surgery and has [employer] therefore is required to complete 0 [...] next session: Link to book as discussed: https://my.[facility].org/-/ scassets/files/org/bariatric/guid es/bmigui debook-september2019.ashx?la=en 2. Do not skip meals - use protein shake 1x per day to replace any sk (more content not included)... [facility] 07-30-2020 Note HNO ID: [id number] Author: Saima (Phd) Carin Service: ? Author Type: Psychologist Type: Progress Notes Filed: 07/30/2020 12:07 PM Note Text: [facility] BARIATRIC SURGERY BEHAVIORAL HEALTH EVALUATION DATE OF SERVICE: July 30, 2020 TIME OF SERVICE: 10:55-12:05pm COST CENTER: [facility] CPT CODE: [id number] Virtual Psych Diagnostic Eval BILLING CODE: ENDO PSYL MAIN Carin SESSION #: 1 Due to the [facility] and [facility] and the need for ongoing mental health services, the following visit was completed virtually to reduce the risk of COVID-19 exposure. Consent to virtual visits was provided verbally after information was sent via ESCAPESwithYOU or read to patient if MyChart not available. Likewise, patient provided verbal consent to information outlined on The Informed Consent for Psychological Evaluation AND Care Form, including the behavioral health care insurance benefits, fees for service, emergency procedures, and the limits of confidentiality. This consent form was sent to ESCAPESwithYOU or read to patient if MyChart was unavailable. Location at time of appointment: [address] [place] [address] in a parked car outside of her [...] disorders in t (more content not included)... [facility] Evaluation note Diagnosis Unilateral primary osteoarthritis, right hip documented in this encounter [facility] Discharge instructions* Attachments The following attachments cannot be sent through Care Everywhere. * Hip Replacement: Total: General Info ([place] Korean) * Fall Prevention ([place]) [facility]* Auth/Cert Specialty Diagnoses / Procedures [facility] Referred To Contact Diagnoses Unilateral primary osteoarthritis, right hip M16.11 Procedures MI ARTHROPLASTY ACETABULAR AND PROXIMAL FEMORAL PROSTHETIC REPLACEMENT (TOTAL HIP ARTHROPLASTY) WITH OR WITHOUT AUTOGRAFT OR ALLOGRAFT MI ARTHROPLASTY ACETABULAR AND PROXIMAL FEMORAL PROSTHETIC REPLACEMENT (TOTAL HIP ARTHROPLASTY) WITH OR WITHOUT AUTOGRAFT OR ALLOGRAFT Right total hip arthoplasty Wyatt Houston MD [address] [facility] [address] [place] [address] Referral ID Status Reason Start Date Expiration Date Visits Re quested Visits Authorized [id number] 07/01/2021 1 1 [facility] Summary Purpose Family History No Family History Records FoundNo Family History Records FoundNo Family History Records FoundNo Family History Records FoundNo Family History Records FoundNo Family History Records FoundNo Family History Records Found Advance Directives No Advanced Directives Records FoundDocuments on File Type Date Recorded 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 DATE CREATED AUTHOR AUTHOR'S ORGANIZ ATION 04/11/2021 [facility] DATE CREATED AUTHOR AUTHOR'S ORGANIZ ATION 05/22/2021 [facility] DATE CREATED AUTHOR AUTHOR'S ORGANIZ ATION 08/29/2021 [facility] DATE CREATED AUTHOR AUTHOR'S ORGANIZ ATION 07/26/2022 [facility] Comments (unrecognize d section and content) In the event this informatio n is protected by the Federal Confidentiality of Alcohol and Drug Abuse Patient Records regulations: The Federal rules restrict any use of the information to criminally investigate or prosecute any alcohol or drug abuse patient.[facility] Reason for Visit (unrecogniz ed section and content) Reason Onset Date Comments Refill Request 07/14/2021 Care Teams (unrecognized sec tion and content) Ibm Bpm Architect Relationship Specialty Start Date End Date Yaneth An MD [address] [place] [address] PCP - General Family Practice 10/05/20 Ibm Bpm Architect Relationship Specialty Start Date End Date Yaneth An MD [address] [place] [address] PCP - General Family Medicine 08/05/21 Ordered [...] Recovery (only), 2nd Line Option: -ONLY give MI if patient is unable to take orally [...] Recovery (only)
2nd Line Option: -ONLY give MI if patient is unable to take orally [...] BE BASED ON THE PRIMARY CLINICAL RECORDS. [employer] [facility]. provides no warranty or guarantee of the accuracy or completeness of information in this document.
--- NOTE | 2023-06-04 14:52 | P.CN_ITS ---
Consult Note: HPI Data of Consult Patient: known to practice within the last 3 years Requesting Physician: Vivian Corral NP Primary Care Provider: Marlon Garcia MD Consult Narrative Reason for consult: f/u Narrative: Jessica Dillard a pleasant 57 year old female presents for evaluation and management of chronic pain. Today pain is 3/10 in low back and right knee, describes it as a dull ache. Pain increases to 7/10 with activity and depending on the weather. Patient finding benefit to current medication regimen without side effects. cc:: CC: Vivian Corral NP Review of Systems ROS Status of ROS 10 or more systems reviewed and unremark able except as noted in history and below Musculoskeletal Reports: back pain and joint pain PFSH PFSH Medical History Osteoarthritis ?M19.90 - Unspecified osteoarthritis, unspecified site (ICD-10) Depression ?F32.A - Depression, unspecified (ICD-10) Sleep apnea ?G47.30 - Sleep apnea, unspecified (ICD-10) High cholesterol ?E78.00 - Pure hypercholesterolemia, unspecified (ICD-10) HTN (hypertension) ?I10 - Essential (primary) hypertension (ICD-10) Surgical History History of right knee surgery ?Z98.890 - Other specified postprocedural states (ICD-10) 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 [part of] (ICD-10) History of breast biopsy ?Z98.890 - Other specified postprocedural states (ICD-10) History of arthroscopy of left knee ?Z98.890 - Other specified postprocedural states (ICD-10) History of total left hip arthroplasty ?Z96.642 - Presence of left artificial hip joint (ICD-10) History of right hip replacement ?Z96.641 - Presence of right artificial hip joint (ICD-10) Meds Home Medications and Allergies Home Medications Medication Instructions Recorded Confirmed Type acetaminophen 500 mg tablet 500 mg PO QID PRN pain 11/04/22 11/20/22 History (Acetaminophen Extra Strength) baclofen 10 mg tablet 10 mg PO Q8H PRN muscle spasm 11/04/22 11/20/22 History bee pollen 550 mg capsule mg PO 11/04/22 History biotin 1 mg capsule 1 mg PO DAILY 11/04/22 11/20/22 History celecoxib 200 mg capsule 200 mg PO Q24H 11/04/22 11/20/22 History hydrocodone 5 mg-acetaminophen 325 1 tab PO BID 11/04/22 11/20/22 History mg tablet magnesium 200 mg tablet 400 mg PO DAILY 11/04/22 11/20/22 History multivitamin (Daily Multi-Vitamin 1 tab PO DAILY 11/04/22 11/20/22 History tablet) pantoprazole 40 mg tablet,delayed 40 mg PO DAILY 11/04/22 11/20/22 History release hydrocodone 5 mg-acetaminophen 325 1 tab PO BID PRN pain #60 tabs 11/21/22 Rx mg tablet hydrocodone 5 mg-acetaminophen 325 1 tab PO BID PRN pain #60 tabs 12/18/22 Rx mg tablet hydrocodone 5 mg-acetaminophen 325 1 tab PO BID PRN pain #60 tabs 01/15/23 Rx mg tablet hydrocodone 5 mg-acetaminophen 325 1 tab PO BID PRN pain #60 tabs 02/17/23 Rx mg tablet hydrocodone 5 mg-acetaminophen 325 1 tab PO BID PRN pain #60 tabs 03/12/23 Rx mg tablet hydrocodone 5 mg-acetaminophen 325 1 tab PO BID PRN pain #60 tabs 04/20/23 Rx mg tablet baclofen 10 mg tablet 10 mg PO TID PRN muscle spasm #90 05/18/23 Rx tabs hydrocodone 5 mg-acetaminophen 325 1 tab PO BID PRN pain #60 tabs 05/18/23 Rx mg tablet Allergies Allergy/AdvReac Type Severity Reaction Status Date / Time ciprofloxacin [From Cipro] Allergy Verified 11/20/22 09:37 Exam Constitutional Documenting provider has reviewed patient's vital signs: yes Common normals: no apparent distress, oriented x3, healthy appearing, alert and well nourished General appearance: cooperative HENMT Common normals: normocephalic, hearing grossly normal bilaterally and moist oral mucous membranes Head and scalp: normocephalic Eye Common normals: PERRL Pupil: PERRL Neck & C-Spine Common normals: full ROM General: normal visual inspection Chest Common normals: inspection of chest normal Respiratory Common normals: normal respiratory effort, no retractions and no use of accessory muscles Back & Pelvis Lumbar spine/lower back: pain with ROM Other: positive facet loading bilaterally Extremity Right lower extremity: knee joint (pain with weight bearing and activity) Right knee: inspection (enlarged joint) Neuro Common normals: oriented x3, CN's II-XII intact bilaterally, moves all extremities, no focal motor deficits, no sensory deficits noted and deep tendon reflexes 2+ bilaterally Sensorium/orientation: alert Gait (neuro): normal gait Motor exam: strength 5/5 throughout and no movement abnormalities noted Psych Common normals: mental status grossly normal, thought process normal, cooperative, affect normal, speech normal and activity/motor behavior normal Speech: normal speech Thought process: normal thought process Results Additional Findings Additional findings: I have checked an [place] report on this patient today and there are no aberrancies noted in the prescribing history.?? A drug screen was completed and reviewed within the last year, and if there has not been a drug screen completed we ordered one today to monitor higher risk, state monitored pain medication use. As part of providing excellent, safe, comprehensive care, the following was completed at our patient's visit: 1. A medication reconciliation and review to ensure accurate knowledge of current/active medications, including asking our patients to inform us about any [id number] medications or herbal remedies/nutritional supplements/alternative remedies. 2. A review to specifically ensure our patients have had annual screening for: elevated body mass index (BMI), tobacco use, screening for depression, and screening for unhealthy alcohol use. When screening is concerning, patients are provided with education and the specific recommendation to discuss the concerning health issue and treatment options with their primary care provider. Assessment and Plan Assessment and Plan (1) Chronic prescription opiate use: Assessment and Plan: I feel these medications are improving the patient's quality of life and allow them to tolerate activities of daily living as well as participate in recreational activity.? The patient does not report intolerable side effects. The patient is NOT opioid naive and non-pharmacologic and non-opioid treatment has failed to significantly relieve the patient's pain and improve functionality. The patient has a diagnosis that is related to a somatic or visceral pain etiology. ? ?? I reviewed with the patient the potential risks and side effects with the use of? opioid medications including but not limited to respiratory depression,? sedation, and even . I verified the patient has access to naloxone should? these effects occur. I advised the patient to avoid the use of any other? sedation substances including alcohol, THC, and benzodiazepines while? taking opioid medications due to the risk of compounding side effects and? detrimental outcomes. I reviewed the [employer] G[employer] SUPERINTENDENT, pain treatment agreement, urine? drug screen, and opioid start talking forms. The patient was advised to let? their family know they had Naloxone in case they would need to administer? the medication.? ?? A drug screen was completed within the last year, and no aberrancies were noted regarding their use of controlled substances. The patient understands they are subject to the terms and conditions of the pain contract that they have signed. ? ?? I have checked an [place] report on this patient today and there are no aberr ancies noted in the prescribing history.? (2) Knee osteoarthritis: (3) Lumbar spondylosis: Plan continue current medications update UDS today narcan discussed and prescribed f/u 3 months, consider repeat lumbar RFA or repeat right knee durolane injection in the future
== END 2023-06-04 14:17 | disposition home or self-care (01) ==
LOC: PM 14:16
PROVIDERS: PCP Family Medicine; Visit Provider Nurse Practitioner
DX: Z79.891 Long term (current) use of opiate analgesic (principal); M17.9 Osteoarthritis of knee, unspecified; M47.816 Spondylosis without myelopathy or radiculopathy, lumbar region
CPT/HCPCS: G0463

== ENCOUNTER 2023-08-27 07:49 | Outpatient (OUT) | payer MEDICAID, SELFPAY ==
--- NOTE | 2023-08-27 07:53 | PM.CN ---
Consult Note: HPI Data of Consult Patient: known to practice within the last 3 years Requesting Physician: Vivian Corral NP Primary Care Provider: Marlon Garcia MD Consult Narrative Reason for consult: f/u Narrative: Jessica Dillard a pleasant 57 year old female presents for evaluation and management of chronic pain. Today pain is 3/10 in low back and right knee, describes it as a dull ache. Pain increases to 7/10 with activity and depending on the weather and activity, now noticing increase with standing walking lifting bending twisting stairs and improved with sitting and medications. Patient finding benefit to current medication regimen without side effects. engaged in provider guided HEP greater than 6 weeks with mild benefit. cc:: CC: Vivian Corral NP Review of Systems ROS Status of ROS 10 or more systems reviewed and unremarkable except as noted in history and below Musculoskeletal Reports: back pain and joint pain PFSH PFSH Medical History Osteoarthritis ?M19.90 - Unspecified osteoarthritis, unspecified site (ICD-10) Depression ?F32.A - Depression, unspecified (ICD-10) Sleep apnea ?G47.30 - Sleep apnea, unspecified (ICD-10) High cholesterol ?E78.00 - Pure hypercholesterolemia, unspecified (ICD-10) HTN (hypertension) ?I10 - Essential (primary) hypertension (ICD-10) Surgical History History of right knee surgery ?Z98.890 - Other specified postprocedural states (ICD-10) 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 [part of] (ICD-10) History of breast biopsy ?Z98.890 - Other specified postprocedural states (ICD-10) History of arthroscopy of left knee ?Z98.890 - Other specified postprocedural states (ICD-10) History of total left hip arthroplasty ?Z96.642 - Presence of left artificial hip joint (ICD-10) History of right hip replacement ?Z96.641 - Presence of right artificial hip joint (ICD-10) Meds Home Medications and Allergies Home Medications ?Medication ?Instructions ?Recorded ?Confirmed ?Type acetaminophen 500 mg tablet 500 mg PO QID PRN pain 11/04/22 11/20/22 History (Acetaminophen Extra Strength) baclofen 10 mg tablet 10 mg PO Q8H PRN muscle spasm 11/04/22 11/20/22 History bee pollen 550 mg capsule mg PO 11/04/22 History biotin 1 mg capsule 1 mg PO DAILY 11/04/22 11/20/22 History celecoxib 200 mg capsule 200 mg PO Q24H 11/04/22 11/20/22 History hydrocodone 5 mg-acetaminophen 325 1 tab PO BID 11/04/22 11/20/22 History mg tablet magnesium 200 mg tablet 400 mg PO DAILY 11/04/22 11/20/22 History multivitamin (Daily Multi-Vitamin 1 tab PO DAILY 11/04/22 11/20/22 History tablet) pantoprazole 40 mg tablet,delayed 40 mg PO DAILY 11/04/22 11/20/22 History release hydrocodone 5 mg-acetaminophen 325 1 tab PO BID PRN pain #60 tabs 11/21/22 Rx mg tablet hydrocodone 5 mg-acetaminophen 325 1 tab PO BID PRN pain #60 tabs 12/18/22 Rx mg tablet hydrocodone 5 mg-acetaminophen 325 1 tab PO BID PRN pain #60 tabs 01/15/23 Rx mg tablet hydrocodone 5 mg-acetaminophen 325 1 tab PO BID PRN pain #60 tabs 02/17/23 Rx mg tablet hydrocodone 5 mg-acetaminophen 325 1 tab PO BID PRN pain #60 tabs 03/12/23 Rx mg tablet hydrocodone 5 mg-acetaminophen 325 1 tab PO BID PRN pain #60 tabs 04/20/23 Rx mg tablet baclofen 10 mg tablet 10 mg PO TID PRN muscle spasm #90 05/18/23 Rx tabs hydrocodone 5 mg-acetaminophen 325 1 tab PO BID PRN pain #60 tabs 05/18/23 Rx mg tablet hydrocodone 5 mg-acetaminophen 325 1 tab PO BID PRN pain #60 tabs 06/17/23 Rx mg tablet hydrocodone 5 mg-acetaminophen 325 1 tab PO BID PRN pain #60 tabs 07/16/23 Rx mg tablet hydrocodone 5 mg-acetaminophen 325 1 tab PO BID PRN pain #60 tabs 08/14/23 Rx mg tablet Allergies Allergy/AdvReac Type Severity Reaction Status Date / Time ciprofloxacin [From Cipro] Allergy Verified 11/20/22 09:37 Exam Constitutional Documenting provider has reviewed patient's vital signs: yes Common normals: no apparent distress, oriented x3, healthy appearing, alert and well nourished General appearance: cooperative HENMT Common normals: normocephalic, hearing grossly normal bilaterally and moist oral mucous membranes Head and scalp: normocephalic Eye Common normals: PERRL Pupil: PERRL Neck & C-Spine Common normals: full ROM General: normal visual inspection Chest Common normals: inspection of chest normal Respiratory Common normals: normal respiratory effort, no retractions and no use of accessory muscles Back & Pelvis Lumbar spine/lower back: pain with ROM and straight leg raise negative bilaterally Other: positive facet loading bilaterally, tenderness over L3-S1 facets Extremity Right lower extremity: knee joint Right knee: inspection (enlarged joint) Other: pain with weight bearing and activity, mild to moderate edema noted, pain with medial and lateral stress testing no instability noted, moderate crepitus on exam Neuro Common normals: oriented x3, CN's II-XII intact bilaterally, moves all extremities, no focal motor deficits, no sensory deficits noted and deep tendon reflexes 2+ bilaterally Sensorium/orientation: alert Gait (neuro): antalgic Motor exam: strength 5/5 throughout and no movement abnormalities noted Psych Common normals: mental status grossly normal, thought process normal, cooperative, affect normal, speech normal and activity/motor behavior normal Speech: normal speech Thought process: normal thought process Results Additional Findings Additional findings: If on a controlled substance or opioids, I have checked an [place] report on this patient and there are no aberrancies noted in the prescribing history.??If on a controlled substance or opioid a drug screen was completed and reviewed within the last year, and if there has not been a drug screen completed we ordered one today to monitor higher risk, state monitored pain medication use. As part of providing excellent, safe, comprehensive care, the following was completed at our patient's visit: 1. A medication reconciliation and review to ensure accurate knowledge of current/active medications, including asking our patients to inform us about any [id number] medications or herbal remedies/nutritional supplements/alternative remedies. 2. A review to specifically ensure our patients have had annual screening for screening for depression, screening for tobacco use, and screening for unhealthy alcohol use. For concerning screenings had a discussion with the patient, provided patient education, and recommended follow-up with primary care provider when appropriate. If patient noted with a risk of falling, they received education on strength, gait, and balance training to prevent future risk of falling. Assessment and Plan Assessment and Plan (1) Knee osteoarthritis: (2) Lumbar spondylosis: (3) Chronic prescription opiate use: Assessment and Plan: I feel these medications are improving the patient's quality of life and allow them to tolerate activities of daily living as well as participate in recreational activity.? The patient does not report intolerable side effects. The patient is NOT opioid naive and non-pharmacologic and non-opioid treatment has failed to significantly relieve the patient's pain and improve functionality. The patient has a diagnosis that is related to a somatic or visceral pain etiology. ? ?? I reviewed with the patient the potential risks and side effects with the use of? opioid medications including but not limited to respiratory depression,? sedation, and even . I verified the patient has access to naloxone should? these effects occur. I advised the patient to avoid the use of any other? sedation substances including alcohol, THC, and benzodiazepines while? taking opioid medications due to the risk of compounding side effects and? detrimental outcomes. 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 drug screen, and opioid start talking forms. The patient was advised to let? their family know they had Naloxone in case they would need to administer? the medication.? ?? A drug screen was completed within the last year, and no aberrancies were noted regarding their use of controlled substances. The patient understands they are subject to the terms and conditions of the pain contract that they have signed. ? ?? I have checked an [place] report on this patient today and there are no aberrancies noted in the prescribing history.? Plan repeat right and left L2,3 L4,5 facet RFA under fluoroscopy as previous RFAs have provided >50% improvement in pain and functional ability greater than 6 months. risks vs benefits discussed repeat right durolane injection under fluoroscopy, previous injection provided >50% improvement in pain and functional ability greater than 6 months. patient not interested in surgical intervention or orthopedic referral continue current medications, continues to find functional improvement without side effects. narcan discussed and prescribed f/u 1 month after RFAs completed
--- OUTSIDE RECORDS SUMMARY | 2023-08-27 08:12 | XMS_ITS | CCD ---
Author Organization [facility] Care Team Providers Care Sales Product Manager Name Role Phone Yaneth An MD Primary Care Provider [phone] REGINA, WYATT Admitting Unavailable REGINA, WYATT Attending Unavailable YANETH AN Primary Care Unavailable HOY ., DR WOLFE Consulting Unavailable HOY ., DR WOLFE Attending Unavailable HOY ., DR WOLFE Admitting Unavailable HOY ., DR WOLFE Primary Care Unavailable WILHELM ., DR KAITLIN Jang Attending Unavailable WILHELM ., DR KAITLIN Jang Admitting Unavailable HOY ., DR WOLFE Primary Care Unavailable WAGNER .THERESA Consulting Unavailable HOY ., DR WOLFE Primary [...] Unavailable LAKSHMIPATHY ., ROSI Attending Pauly vailable LAKSHMIPATHEvens ., ROSI Admitting Pauly vailable HOY ., DR WOLFE Primary Care Unavailable MISC, DR FISHER Admitting Unavailable HOY ., DR WOLFE Primary Care Unavailable MISC, DR FISHER Attending Unavailable WAGNER .THERESA Consulting Unavailable HOY ., DR WOLFE Primary [...] WAGNER ., THERESA Consulting Unavailable LAKSHMIPATHY ., NARENDRANATH Attending Pauly vailable LAKSHMIPATHY ., NARENDRANATH Admitting Pauly vailable HOY ., DR WOLFE Primary Care Unavailable LAKSHMIPATHY ., NARENDRANATH Consulting Pauly vailable WAGNER ., THERESA Consulting Unavailable HOY ., DR WOLFE Primary Care Unavailable WILHELM ., DR KAITLIN Jang Admitting Unavailable WILHELM ., DR KAITLIN Jang Attending Unavailable LAKSHMIPATHY ., NARENDRANATH Attending Pauly vailable LAKSHMIPATHY [...] DR FISHER Attending Unavailable HOY ., DR WLOFE Primary Care Unavailable LAKSHMIPATHY ., NARENDRANATH Consulting [...] Ciprofloxacin; Translations: [CIPROFLOXACIN] Drug Allergy 10-19-2020 Unknown [facility] (2 sources) Ciprofloxacin Drug Allergy 08-17-2013 [facility] Repository Medications Current Medications Medication Drug [...] Fatou 08/29/21 at 0900, Phase II/On Unit Start: [...] on above: Take 1 tablet by brice once daily. polyvinyl alcohol 0.014 ml/ml ophthalmic [...] Comment on above: Take 1 capsule by [facility] twice daily. Completed/Discontinued Medications Medication Drug Class(es) [...] tablet by mouth three times daily HYDROcodone-acetaminophen ([place]) 5-325 mg per tablet Take 1 tablet [...] spec) Not detected Normal NOT DETECTED [facility] Comment on above: Result Comment: When [...] for this test is supported by the Industrial Insulator of Health and Human Service's declaration that [...] be used). Performed By: #### C VDTB ####[facility] [address] [place], [place] [address]Dr. Bakari Isidro INFLUENZA A AND B AGon 03[facility] BEL[facility] Normal [facility] Comment on above: Result Comment: Nega tive for Flu A protein angiten. Infection due to Flu A cannot be ruled out. Flu A angiten in the sample may be below the detection limit of the test. Performed By: #### I NFLUAB ####[facility] [address] [place], [place] [address]Dr. Bakari Isidro INFLUBNEGH SEE BELOW Normal [facility] Comment on above: Result Comment: Nega tive for Flu B protein antigen. Infection due to Flu B cannot be ruled out. Flu B antigen in the sample may be below the detection limit of the test. Performed By: #### I NFLUAB ####[facility] [address] [place], [place] [address]Dr. Bakari Isidro INFLUENZA A AG Negative Normal NEGATIVE SEE COMMENT [facility] Comment on above: Performed By: #### I NFLUAB ####[facility] [address] [place], [place] [address]Dr. Bakari Isidro INFLUENZA B AG Negative Normal NEGATIVE SEE COMMENT [facility] Comment on above: Performed By: #### I NFLUAB ####[facility] [address] [place], [place] [address]Dr. Bakari Isidro INTERNAL CONTROLS Within Normal Limits Normal Wi thin Normal Limits [facility] Comment on above: Performed By: #### I NFLUAB ####[facility] S[address] [place], [place] [address]Dr. Bakari Isidro Covid-19 PCR (CVDTBH)on SARS-CoV-2 (COVID-19) RNA HELLEN+probe Ql (Unsp spec) Not detected Normal NOT DETECTED [facility] Comment on above: Result Comment: This test is not yet approved or cleared by the [place] FDA. When there are no FDA-approved or cleared tests available, and other criteria are met, FDA can make tests available under an emergency access mechanism called an Emergency Use Authorization (EUA). The EUA for this test is supported by the Industrial Insulator of Health and Human Service's (HHS's) declaration [...] consistent with SARS-CoV-2. Performed By: #### C [facility] ####[facility] [address] [place], [place] [address]Au. Bakari Isidro Covid-19 PCR (CVDTBH)on 01-12 SARS-CoV-2 (COVID-19) RNA HELLEN+probe Ql (Unsp spec) Not detected Normal NOT DETECTED [facility] Comment on above: Result Comment: This test is not yet approved or cleared by the [place] FDA. When there are no FDA-approved or cleared tests available, and other criteria are met, FDA can make tests available under an emergency access mechanism called an Emergency Use Authorization (EUA). The EUA for this test is supported by the [place] of Health and Human Service's (HHS's) declaration [...] with SARS-CoV-2. Performed By: #### C VDTBH ####[facility] [address] [place], [place] [address]CcDr. Bakari Isidro VIT D 25-OH LABCORPon 2021 Vitamin D, 25-Hydroxy 60.1 ng/mL Normal 30.0-100.0 [facility] Comment on above: Result Comment: Traci min D deficiency has been defined by the [place] [employer] and an Endocrine Society practice guideline as a level of serum 25-OH vitamin D less than 20 ng/mL (1,2). The Endocrine Society went on to further define vitamin D insufficiency as a level between 21 and 29 ng/mL (2). 1. IOM ([place] [employer]). 2010. Dietary reference intakes for calcium and D. [place]: The National Academies Press. 2. Qi WILKINSON, Celeste LUIS, Debora CHOWDHURY, et al. Evaluation, treatment, and prevention of vitamin D deficiency: an Endocrine Society clinical practice guideline. JCEM. 2010; 96(7):1911-30. Performed By: #### V ITADLC #### [facility] [address] [place], [place] [address] Dr. Bakari Isidro CBC AUTO DIFFon 11-19-2021 BASO # 0.0 103/ul Normal 0.0-0.1 [facility] Comment on above: Performed By: #### C BC ####[facility] [address] [place], [place] [address]AdJuan A Isidro Basophils/100 WBC (Bld) 0.5 % Normal 0.2-2.0 [facility] Comment on above: Performed By: #### C BC ####[facility] [address] [place], [place] [address]OiJuan A Isidro EO # 0.1 103/ul Normal 0.0-0.7 [facility] Comment on above: Performed By: #### C BC ####[facility] [address] [place] [address]Dr. Bakari Isidro Eosinophils/100 WBC (Bld) 1.4 % Normal 0.9-7.0 [facility] Comment on above: Performed By: #### C BC ####[facility] [address] [place] [address]Dr. Bakari Isidro Erythrocyte distribution width (RBC) [Ratio] 12.8 % Normal 11.0-15.0 [facility] Comment on above: Performed By: #### C BC ####[facility] [address] [place], [place] [address]Dr. Bakari Isidro Hematocrit (Bld) [Volume fraction] 43.2 % Normal 36.0-48.0 [facility] Comment on above: Performed By: #### C BC ####[facility] [address] [place], [place] [address]Dr. Bakari Isidro Hemoglobin (Bld) [Mass/Vol] 13.4 g/dL Normal 12.0-16.0 [facility] Comment on above: Performed By: #### C BC ####[facility] [address] [place] [address]Dr. Bakari Isidro IG # 0.05 10e3/ul Critically high 0.00-0.[address] [facility] Comment on above: Performed By: #### C BC ####[facility] [address] [place] [address]Dr. Bakari Isidro IG % 0.6 % Critically high 0.0-0.5 [facility] Comment on above: Performed By: #### C BC ####[facility] [address] [place] [address]Dr. Bakari Isidro LYMPH # 1.6 103/ul Normal 1.2-3.8 [facility] Comment on above: Performed By: #### C BC ####[facility] [address] [place], [place] [address]Dr. Bakari Isidro Lymphocytes/100 WBC (Bld) 19.4 % Critically low 20.5-60.0 [facility] Comment on above: Performed By: #### C BC ####[facility] [address] [place] [address]Dr. Bakari Isidro MANUAL DIFF REQ NO Normal [facility] Comment on above: Performed By: #### C BC ####[facility] [address] [place] [address]Dr. Bakari Isidro MCH (RBC) [Entitic mass] 27.5 pg Normal 26.7-34.0 [facility] Comment on above: Performed By: #### C BC ####[facility] [address] [place], [place] [address]Dr. Bakari Isidro MCHC (RBC) [Mass/Vol] 31.0 g/dL Normal 29.9-35.2 [facility] Comment on above: Performed By: #### C BC ####[facility] [address] [place], [place] [address]Dr. Bakari Isidro MCV (RBC) [Entitic vol] 88.5 fL Normal 81.0-99.0 [facility] Comment on above: Performed By: #### C BC ####[facility] [address] [place], [place] [address]Dr. Bakari Isidro MONO # 0.6 103/ul Normal 0.3-0.8 [facility] Comment on above: Performed By: #### C BC ####[facility] [address] [place], [place] [address]Dr. Ravenmaxx Isidro Monocytes/100 WBC (Bld) 7.2 % Normal 1.7-12.0 [facility] Comment on above: Performed By: #### C BC ####[facility] [address] [place], [place] [address]Dr. Bakari Isidro NEUT # 6.0 103/ul Normal 1.4-6.5 [facility] Comment on above: Performed By: #### C BC ####[facility] [address] [place], [place] [address]Dr. Ravenmaxx Isidro Neutrophils/100 WBC (Bld) 70.9 % Normal 43.0-75.0 [facility] Comment on above: Performed By: #### C BC ####[facility] [address] [place], [place] [address]Pf. Bakari Isidro Platelet mean volume (Bld) [Entitic vol] 9.5 fL Normal 9.5-13.5 [facility] Comment on above: Performed By: #### C BC ####[facility] [address] [place], [place] [address]Gf. Bakari Isidro PLT 236 103/ul Normal 150-450 [facility] Comment on above: Performed By: #### C BC ####[facility] [address] [place], [place] [address]Bq. Bakari Isidro RBC 4.88 106/ul Normal 4.20-5.40 [facility] Comment on above: Performed By: #### C BC ####[facility] [address] [place] [address]Dr. Bakari Isidro WBC 8.5 103/ul Normal 4.0-11.0 [facility] Comment on above: Performed By: #### C BC ####[facility] [address] [place] [address]Dr. Bakari Isidro FREE THYROXINE INDEX T7on FTI 2.27 Normal 1.30-4.50 [facility] Comment on above: Performed By: #### T SH, LIPID, CMP, T7 #### [facility] [address] [place] [address] [address] Bakari Isidro T3U 32.0 % Normal 30.0-39.0 [facility] Comment on above: Performed By: #### T SH, LIPID, CMP, T7 #### [facility] [address] [place] [address] [address] Bakari Isidro T4 [Mass/Vol] 7.10 ug/dL Normal 4.80-13.90 [facility] Comment on above: Performed By: #### T SH, LIPID, CMP, T7 #### [facility] [address] [place] [address] [address] Bakari Isidro GLYCOHEMOGLOBIN A1Con 2021 ADA RECOMMENDATION SEE BELOW Normal [facility] Comment on above: Result Comment: ADA RECOMMENDED LIMIT 4.0 - 6.0 ADA THERAPEUTIC TARGET < 7.0 ACTION SUGGESTED > 7.0 Performed By: #### A 1C #### [facility] [address] [place] [address] [address] Bakari Isidro Glucose [Mass/Vol] 105 mg/dL Normal [facility] Comment on above: Performed By: #### A 1C #### [facility] [address] [place] [address] [address] Bakari Isidro HbA1c (Bld) [Mass fraction] 5.3 % Normal 4.5-6.2 [facility] Comment on above: Performed By: #### A 1C #### [facility] [address] [place] [address] [address] Bakari Isidro IRONon 11-19-2021 Iron [Mass/Vol] 49.0 ug/dL Critically low 50.0-170.0 [facility] Comment on above: Performed By: #### I JOHAN, B12FOL ####[facility] [address] [place] [address]Dr. Bakari Isidro LIPID PROFILEon 11-19-2021 CHOL-HDL RATIO NORM SEE BELOW Normal [facility] Comment on above: Result Comment: 3.3 - 4.4 LOW RISK 4.4 - 7.1 AVERAGE RISK 7.1 - 11.0 MODERATE RISK >11.0 HIGH RISK Performed By: #### T SH, LIPID, CMP, T7 #### [facility] [address] [place] [address] [address] Bakari Isidro Cholesterol [Mass/Vol] 219 mg/dL Critically high <=200 [facility] Comment on above: Performed By: #### T SH, LIPID, CMP, T7 #### [facility] [address] [place] [id number] Bakari Isidro Cholesterol in HDL [Mass/Vol] 43 mg/dL Normal 40-60 [facility] Comment on above: Performed By: #### T SH, LIPID, CMP, T7 #### [facility] [address] [place] [id number] Bakari Isidro Cholesterol in LDL [Mass/Vol] 147.0 mg/dL Normal [facility] Comment on above: Performed By: #### T SH, LIPID, CMP, T7 #### [facility] [address] [place] [address] [address] Bakari Isidro Cholesterol.total /Cholesterol in HDL [Mass ratio] 5.1 {ratio} Normal [facility] Comment on above: Performed By: #### T SH, LIPID, CMP, T7 #### [facility] [address] [place] [address] [address] Bakari Isidro HDL NORMAL > or = 60 mg/dl - LO W CARDIOVASCULAR RISK <40 mg/dl - HIGH CARDIOVASCULAR RISK Normal [facility] Comment on above: Performed By: #### T SH, LIPID, CMP, T7 #### [facility] [address] [place] [address] [address] Bakari Isidro LDL CALC NORMAL SEE BELOW Normal [facility] Comment on above: Result Comment: <100 mg/dl OPTIMAL 100 - 129 mg/dl NEAR OR ABOVE OPTIMAL 130 - 159 mg/dl BORDERLINE HIGH 160 - 189 mg/dl HIGH >190 mg/dl VERY HIGH Performed By: #### T SH, LIPID, CMP, T7 #### [facility] [address] [place] [address] [address] Bakari Isidro Triglyceride [Mass/Vol] 145 mg/dL Normal <=150 [facility] Comment on above: Performed By: #### T SH, LIPID, CMP, T7 #### [facility] [address] [place] [address] [address] Bakari Isidro VLDL CALC 29.0 mg/dL Normal [facility] Comment on above: Performed By: #### T SH, LIPID, CMP, T7 #### [facility] [address] [place] [address] [address] Bakari Isidro PROF 14(COMP METB)on 022 Albumin [Mass/Vol] 3.6 g/dL Normal 3.4-5.0 [facility] Comment on above: Performed By: #### T SH, LIPID, CMP, T7 #### [facility] [address] [place] [address] [address] Bakari Isidro Albumin/Globulin [Mass ratio] 1.1 {ratio} Normal [facility] Comment on above: Performed By: #### T SH, LIPID, CMP, T7 #### [facility] [address] [place] [address] [address] Bakari Isidro ALP [Catalytic activity/Vol] 129 U/L Critically high 46-116 [facility] Comment on above: Performed By: #### T SH, LIPID, CMP, T7 #### [facility] [address] [place] [address] Dr. Bakari Isidro ALT [Catalytic activity/Vol] 24 U/L Normal 14-59 [facility] Comment on above: Performed By: #### T SH, LIPID, CMP, T7 #### [facility] [address] [place] [address] Dr. Bakari Isidro Anion gap [Moles/Vol] 15.7 mmol/L Normal [facility] Comment on above: Performed By: #### T SH, LIPID, CMP, T7 #### [facility] [address] [place] [address] Dr. Bakari Isidro AST [Catalytic activity/Vol] 13 U/L Critically low 15-37 [facility] Comment on above: Performed By: #### T SH, LIPID, CMP, T7 #### [facility] [address] [place] [address] Dr. Bakari Isidro Bilirubin [Mass/Vol] 0.3 mg/dL Normal 0.2-1.0 [facility] Comment on above: Performed By: #### T SH, LIPID, CMP, T7 #### [facility] [address] [place] [address] Dr. Bakari Isidro Calcium [Mass/Vol] 9.0 mg/dL Normal 8.5-10.1 [facility] Comment on above: Performed By: #### T SH, LIPID, CMP, T7 #### [facility] [address] [place] [address] Dr. Bakari Isidro Chloride [Moles/Vol] 105 mmol/L Normal 98-107 [facility] Comment on above: Performed By: #### T SH, LIPID, CMP, T7 #### [facility] [address] [place] [address] [address] Bakari Isidro CO2 [Moles/Vol] 24.0 mmol/L Normal 21.0-32.0 [facility] Comment on above: Performed By: #### T SH, LIPID, CMP, T7 #### [facility] [address] [place] [address] [address] Bakari Isidro Creatinine [Mass/Vol] 0.55 mg/dL Normal 0.55-1.02 [facility] Comment on above: Performed By: #### T SH, LIPID, CMP, T7 #### [facility] [address] [place] [address] [address] Bakari Isidro EGFR-AF IVORIAN >60 Normal >=60 [facility] Comment on above: Performed By: #### T SH, LIPID, CMP, T7 #### [facility] [address] [place] [address] [address] Bakari Isidro EGFR-NON AF IVORIAN >60 Normal >=60 [facility] Comment on above: Performed By: #### T SH, LIPID, CMP, T7 #### [facility] [address] [place] [address] [address] Bakari Isidro Globulin (S) [Mass/Vol] 3.2 g/dL Normal [facility] Comment on above: Performed By: #### T SH, LIPID, CMP, T7 #### [facility] [address] [place] [address] [address] Bakari Isidro Glucose [Mass/Vol] 99 mg/dL Normal 74-106 [facility] Comment on above: Performed By: #### T SH, LIPID, CMP, T7 #### [facility] [address] [place] [address] [address] Bakari Isidro Potassium [Moles/Vol] 4.7 mmol/L Normal 3.5-5.1 [facility] Comment on above: Performed By: #### T SH, LIPID, CMP, T7 #### [facility] [address] [place] [address] [address] Bakari Isidro Protein [Mass/Vol] 6.8 g/dL Normal 6.4-8.2 [facility] Comment on above: Performed By: #### T SH, LIPID, CMP, T7 #### [facility] [address] [place] [address] [address] Bakari Isidro Sodium [Moles/Vol] 140 mmol/L Normal 136-145 [facility] Comment on above: Performed By: #### T SH, LIPID, CMP, T7 #### [facility] [address] [place] [address] [address] Bakari Isidro Urea nitrogen [Mass/Vol] 17.0 mg/dL Normal 7.0-18.0 [facility] Comment on above: Performed By: #### T SH, LIPID, CMP, T7 #### [facility] [address] [place] [address] [address] Bakari Isidro Urea nitrogen/Creatini ne [Mass ratio] 30.9 mg/mg Normal [facility] Comment on above: Performed By: #### T SH, LIPID, CMP, T7 #### [facility] [address] [place] [address] [address] Bakari Isidro TSHon 11-19-2021 TSH 0.483 uIU/mL Normal 0.358-3.740 [facility] Comment on above: Performed By: #### T SH, LIPID, CMP, T7 #### [facility] [address] [place] [address] [address] Bakari Isidro VIT B12 AND FOLATEon 022 Cobalamin (Vitamin B12) [Mass/Vol] 1350.0 pg/mL Critically high 193.0-986.0 [facility] Comment on above: Performed By: #### I JOHAN B12FOL ####[facility] [address] [place] [address]Dr. Bakari Isidro FOLATE 23.50 ng/mL Normal 8.60-58.90 [facility] Comment on above: Performed By: #### I JOHAN B12FOL ####[facility] [address] [place] [address]Dr. Bakari Isidro Glucose Auto test strip (Bld ) [Mass/Vol]on 08-28-2021 Glucose [Mass/Vol] 85 mg/dL Normal 70-99 [facility] Comment on above: Performed By: #### 2 340-8 #### [facility] [address] [place] [address] Glucose [Mass/Vol] 85 mg/dL 70 - 99 mg/dL [facility] Interpretation and review of laboratory results Normal [facility] Glucose [Mass/Vol] 85 mg/dL Normal 70-99 [facility] Comment on above: Performed By: #### 2 340-8 #### [facility] [address] [place] [address] Glucose [Mass/Vol] 85 mg/dL 70 - 99 mg/dL [facility] Interpretation and review of laboratory results Normal [facility] XR PELVIS 1-2 VIEWSon 2021 XR PELVIS [...] Self Edit Transcribed Date: 08/28/2021 15:40 Normal [facility] XR Pelvis 1-2 Viewson 2021 Surgical changes fro m a total right hip arthroplasty with normal alignment. -------- FINAL REPORT -------- Dictated By: Sina Nguyen Dictated Date: 08/28/2021 15:40 Assigned Physician: Sina Nguyen Reviewed and Electronically Signed By: Sina Nguyen Signed Date: 08/28/2021 15:40 Workstation ID: [id number] Transcribed By: Self Edit Transcribed Date: 08/28/2021 15:40 POWERSCRIBE EXAMINATION TYPE: XR PELVIS 1-2 VIEWS DATE [...] By: Self Edit Transcribed Date: 08/28/2021 15:40 [facility] Radiology Study observation (narrative) [facility] XR Pelvis 1-2 ViewsOrdered B y: Sina Nguyen on 08-28-2021 [facility] Work Phone: Covid-19 PCR (CVDTBH)on 08-11 SARS-CoV-2 (COVID-19) RNA HELLEN+probe Ql (Unsp spec) Not detected Normal NOT DETECTED [facility] Comment on above: Result Comment: This test is not yet approved or cleared by the [place] FDA. When there are no FDA-approved or cleared tests available, and other criteria are met, FDA can make tests available under an emergency access mechanism called an Emergency Use Authorization (EUA). The EUA for this test is supported by the [place] of Health and Human Service's (HHS's) declaration [...] SARS-CoV-2. Performed By: #### C VDTB #### [facility] [address] [place] [address] Dr. Bakari Isidro Basic metabolic 2000 panelon 08-02-2021 Anion gap [Moles/Vol] 10 mmol/L Normal 6-18 [facility] Comment on above: Performed By: #### 2 4321-2 #### [facility] [address] [place] [address] Calcium [Mass/Vol] 9.6 mg/dL Normal 8.9-10.3 [facility] Comment on above: Performed By: #### 2 4321-2 #### [facility] [address] [place] [address] Chloride [Moles/Vol] 103 mmol/L Normal 98-107 [facility] Comment on above: Performed By: #### 2 4321-2 #### [facility] [address] [place] [address] CO2 [Moles/Vol] 27 mmol/L Normal 22-32 [facility] Comment on above: Performed By: #### 2 4321-2 #### [facility] [address] [place] [address] Creatinine [Mass/Vol] 0.60 mg/dL Normal 0.60-1.30 [facility] Comment on above: Performed By: #### 2 4321-2 #### [facility] [address] [place] [address] GFR/1.73 sq M.predicted among non-blacks MDRD (S/P/Bld) [Vol rate/Area] 101 mL/min/{1.73_m2} Normal [facility] Comment on above: Performed By: #### 2 4321-2 #### [facility] [address] [place] [address] Glucose [Mass/Vol] 86 mg/dL Normal 70-99 [facility] Comment on above: Performed By: #### 2 4321-2 #### [facility] [address] [place] [address] Potassium [Moles/Vol] 4.5 mmol/L Normal 3.6-5.1 [facility] Comment on above: Performed By: #### 2 4321-2 #### [facility] [address] [place] [address] 30621 Sodium [Moles/Vol] 140 mmol/L Normal 136-145 [facility] Comment on above: Performed By: #### 2 4321-2 #### [facility] [address] [place] [address] Urea nitrogen [Mass/Vol] 28 mg/dL High 8-20 [facility] Comment on above: Performed By: #### 2 4321-2 #### [facility] [address] [place] [address] Urea nitrogen/Creatini ne [Mass ratio] 46.7 mg/mg High 12.0-20.0 [facility] Comment on above: Performed By: #### 2 4321-2 #### [facility] [address] [place] [address] Hemogram and platelets WO di fferential panel (Bld)on 04-22-2022 Basophils (Bld) [#/Vol] 0.10 10*3/uL Normal 0.00-0.20 [facility] Comment on above: Performed By: #### 2 4317-0 #### [facility] [address] [place] [address] 50619 Basophils/100 WBC (Bld) 0.6 % Normal 0.0-2.0 [facility] Comment on above: Performed By: #### 2 4317-0 #### [facility] [address] [place] [address] 54151 Eosinophils (Bld) [#/Vol] 0.10 10*3/uL Normal 0.00-0.70 [facility] Comment on above: Performed By: #### 2 4317-0 #### [facility] [address] [place] [address] 64191 Eosinophils/100 WBC (Bld) 1.6 % Normal 0.0-7.0 [facility] Comment on above: Performed By: #### 2 4317-0 #### [facility] [address] [place] [address] 91038 Erythrocyte distribution width (RBC) [Ratio] 13.8 % Normal 11.0-14.8 [facility] Comment on above: Performed By: #### 2 4317-0 #### [facility] [address] [place] [address] 88485 Hematocrit (Bld) [Volume fraction] 40.1 % Normal 35.0-45.0 [facility] Comment on above: Performed By: #### 2 4317-0 #### [facility] [address] [place] [address] 30398 Hemoglobin (Bld) [Mass/Vol] 13.1 g/dL Normal 12.0-16.0 [facility] Comment on above: Performed By: #### 2 4317-0 #### [facility] [address] [place] [address] Lymphocytes (Bld) [#/Vol] 1.80 10*3/uL Normal 1.00-4.80 [facility] Comment on above: Performed By: #### 2 4317-0 #### [facility] [address] [place] [address] 81641 Lymphocytes/100 WBC (Bld) 22.7 % Normal 22.0-44.0 [facility] Comment on above: Performed By: #### 2 4317-0 #### [facility] [address] [place] [address] 86805 MCH 28.1 pcg Normal 27.0-34.0 [facility] Comment on above: Performed By: #### 2 4317-0 #### [facility] [address] [place] [address] 17232 MCHC (RBC) [Mass/Vol] 32.7 g/dL Normal 32.0-36.0 [facility] Comment on above: Performed By: #### 2 4317-0 #### [facility] [address] [place] [address] 13799 MCV (RBC) [Entitic vol] 86.0 fL Normal 80.0-97.0 [facility] Comment on above: Performed By: #### 2 4317-0 #### [facility] [address] [place] [address] 84998 Monocytes (Bld) [#/Vol] 0.50 10*3/uL Normal 0.00-0.90 [facility] Comment on above: Performed By: #### 2 4317-0 #### [facility] [address] [place] [address] 96283 Monocytes/100 WBC (Bld) 6.3 % Normal 0.0-12.0 [facility] Comment on above: Performed By: #### 2 4317-0 #### [facility] [address] [place] [address] Neutrophils Absolute 5.30 K/mcL Normal 1.80-7.70 [facility] Comment on above: Performed By: #### 2 4317-0 #### [facility] [address] [place] [address] 94826 Neutrophils/100 WBC (Bld) 68.8 % Normal 40.0-70.0 [facility] Comment on above: Performed By: #### 2 4317-0 #### [facility] [address] [place] [address] 91365 Platelet mean volume (Bld) [Entitic vol] 8.6 fL Normal 6.2-12.1 [facility] Comment on above: Performed By: #### 2 4317-0 #### [facility] [address] [place] [address] 56163 Platelets (Bld) [#/Vol] 290 10*3/uL Normal 142-424 [facility] Comment on above: Performed By: #### 2 4317-0 #### [facility] [address] [place] [address] 62326 RBC (Bld) [#/Vol] 4.66 10*6/uL Normal 3.80-5.10 [facility] Comment on above: Performed By: #### 2 4317-0 #### [facility] [address] [place] [address] 60322 WBC (Bld) [#/Vol] 7.8 10*3/uL Normal 4.6-10.2 [facility] Comment on above: Performed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 mass, nonfunctional. SURGEON: Jesus Ramirez M.D. TRAVELING PHLEBOTOMIST: Adrien Flanagan MD. SURGERY/PROCEDURE: Laparoscopic right adrenalectomy. [...] this procedure with assistance. Jesus Ramirez M.D. JRG:[id number] Normal [facility] SURGICAL PATHOLOGYon 021 SURGICAL PATHOLOGY Specimen originated from [facility] Specimen #: [id number] Submitting Physician: Jesus Ramirez M.D. FINAL DIAGNOSIS Right adrenal, adrenalectomy - Adrenal cortical adenoma, 4.8 cm, fully excised. JAZMINE/KIERRA/marina 12/31/2020 Vivienne Rodriguez MD (Electronic Signature) SPECIMEN SUBMITTED A: RIGHT [...] cortical tissue and virtually no medullary component. Aged Or Disabled Care Worker sections are submitted as follows: A1-A6 adrenal mass, A7 uninvolved adrenal parenchyma. / 12/28/2020 Gross examination performed at [facility], [address] [place] [address] Date of Report: 01/01/2021 Date of Procedure: 12/27/2020 Date of Receipt: 12/27/2020 Submitted by: Jesus Ramirez M.D. Location: [facility] Diagnostic interpretation performed at [facility], [address] [place] [address]. CLIA Number: [id number] Normal [facility] Self Check COVIDon 1 SARS-CoV-2 (COVID-19) RNA HELLEN+probe Ql (Unsp spec) UPPER RESPIRATORY TRACT SWAB Normal [facility] Comment on above: Performed By: #### H CCOVD ####[facility] [address] [place], [place] [phone] SARS-CoV-2 (COVID-19) RNA HELLEN+probe Ql (Unsp spec) Negative for COVID19 (SARS CoV2) by RT-PCR or equivalent method. Normal Negative for COVID19 (SARS CoV2) by RT-PCR or equivalent method. [facility] Comment on above: Result Comment: This test was developed and its performance characteristics determined by [facility]'s [facility] [place]. This test has been authorized by FDA under an Emergency Use Authorization (EUA). This test has been validated in accordance with the FDA's Guidance Document Policy for Diagnostics Testing in Laboratories Certified to Perform High Complexity Testing under CLIA prior to Emergency use Authorization for Coronavirus Disease 2019 during the Public Health Emergency issued on June 11, 2019. Test performed by [facility], [facility] [place], [address] [place], [place] [address]. Performed By: #### H CCOVD ####[place] [phone] CBC and Differentialon 12-14 Abs Baso 0.03 k/uL Normal <0.11 [facility] Comment on above: Performed By: #### I JOHAN, TSH, B12, B1WB, VITD, PTHI, LIPB, SERFOL ####[place] [phone] Abs Juab 0.54 k/uL Normal <0.87 [facility] Comment on above: Performed By: #### I JOHAN, TSH, B12, B1WB, VITD, PTHI, LIPB, SERFOL ####[place] [phone] Abs Neut 5.39 k/uL Normal 1.45-7.50 [facility] Comment on above: Performed By: #### I JOHAN, TSH, B12, B1WB, VITD, PTHI, LIPB, SERFOL ####[place] [phone] Absolute nRBC <0.01 Normal <0.01 [facility] Comment on above: Performed By: #### I JOHAN, TSH, B12, B1WB, VITD, PTHI, LIPB, SERFOL ####[place] [address] [address] [place] [phone] Basophils/100 WBC (Bld) 0.4 % Normal [facility] Comment on above: Performed By: #### I JOHAN, TSH, B12, B1WB, VITD, PTHI, LIPB, SERFOL ####[place] [address] [address] [phone] DTYPE Auto Diff Normal [facility] Comment on above: Performed By: #### I JOHAN, TSH, B12, B1WB, VITD, PTHI, LIPB, SERFOL ####[place] [address] [address] [phone] Eosinophils (Bld) [#/Vol] 0.10 10*3/uL Normal <0.46 [facility] Comment on above: Performed By: #### I JOHAN, TSH, B12, B1WB, VITD, PTHI, LIPB, SERFOL ####[place] [address] [address] [phone] Eosinophils/100 WBC (Bld) 1.3 % Normal [facility] Comment on above: Performed By: #### I JOHAN, TSH, B12, B1WB, VITD, PTHI, LIPB, SERFOL ####[place] [address] [address] [place] [phone] Erythrocyte distribution width (RBC) [Ratio] 12.4 % Normal 11.5-15.0 [facility] Comment on above: Performed By: #### I JOHAN, TSH, B12, B1WB, VITD, PTHI, LIPB, SERFOL ####[place] [address] [address] [place] [phone] Hematocrit (Bld) [Volume fraction] 43.9 % Normal 36.0-46.0 [facility] Comment on above: Performed By: #### I JOHAN, TSH, B12, B1WB, VITD, PTHI, LIPB, SERFOL ####[address] [place] [phone] Hemoglobin (Bld) [Mass/Vol] 14.1 g/dL Normal 11.5-15.5 [facility] Comment on above: Performed By: #### I JOHAN, TSH, B12, B1WB, VITD, PTHI, LIPB, SERFOL ####[place] [phone] Lymphocytes (Bld) [#/Vol] 1.49 10*3/uL Normal 1.00-4.00 [facility] Comment on above: Performed By: #### I JOHAN, TSH, B12, B1WB, VITD, PTHI, LIPB, SERFOL ####[place] [phone] Lymphocytes/100 WBC (Bld) 19.7 % Normal [facility] Comment on above: Performed By: #### I JOHAN, TSH, B12, B1WB, VITD, PTHI, LIPB, SERFOL ####[place] [phone] MCH 27.2 pG Normal 26.0-34.0 [facility] Comment on above: Performed By: #### I JOHAN, TSH, B12, B1WB, VITD, PTHI, LIPB, SERFOL ####[place] [phone] MCHC (RBC) [Mass/Vol] 32.1 g/dL Normal 30.5-36.0 [facility] Comment on above: Performed By: #### I JOHAN, TSH, B12, B1WB, VITD, PTHI, LIPB, SERFOL ####[address] [place] [phone] MCV (RBC) [Entitic vol] 84.6 fL Normal 80.0-100.0 [facility] Comment on above: Performed By: #### I JOHAN, TSH, B12, B1WB, VITD, PTHI, LIPB, SERFOL ####[facility]CSus[address] [place] [phone] Monocytes/100 WBC (Bld) 7.2 % Normal [facility] Comment on above: Performed By: #### I JOHAN, TSH, B12, B1WB, VITD, PTHI, LIPB, SERFOL ####[place] [address]CS[address] [place] [phone] Neutrophils/100 WBC (Bld) 71.4 % Normal [facility] Comment on above: Performed By: #### I JOHAN, TSH, B12, B1WB, VITD, PTHI, LIPB, SERFOL ####[place] [address] [address] [place] [phone] NRBCs 0.0 /100 WBC Normal 0 [facility] Comment on above: Performed By: #### I JOHAN, TSH, B12, B1WB, VITD, PTHI, LIPB, SERFOL ####[place] [address] [address] AveCMiami [place], [place] [phone] Platelet mean volume (Bld) [Entitic vol] 9.4 fL Normal 9.0-12.7 [facility] Comment on above: Performed By: #### I JOHAN, TSH, B12, B1WB, VITD, PTHI, LIPB, SERFOL ####[place] [address] AveCMiami [place], [place] [phone] Platelets (Bld) [#/Vol] 254 10*3/uL Normal 150-400 [facility] Comment on above: Performed By: #### I JOHAN, TSH, B12, B1WB, VITD, PTHI, LIPB, SERFOL ####[place] [address] [address] AveClevelKristopher Ville [phone] RBC (Bld) [#/Vol] 5.19 10*6/uL Normal 3.90-5.20 [facility] Comment on above: Performed By: #### I JOHAN, TSH, B12, B1WB, VITD, PTHI, LIPB, SERFOL ####[place] [address] [address] [place]Mar[place], [place] [phone] WBC (Bld) [#/Vol] 7.55 10*3/uL Normal 3.70-11.00 [facility] Comment on above: Performed By: #### I JOHAN, TSH, B12, B1WB, VITD, PTHI, LIPB, SERFOL ####[address] [place], [place] [phone] Comp Metabolic Panelon 12-14 Albumin [Mass/Vol] 4.4 g/dL Normal 3.9-4.9 [facility] Comment on above: Performed By: #### I JOHAN, TSH, B12, B1WB, VITD, PTHI, LIPB, SERFOL ####[address] [place], [place] [phone] ALP [Catalytic activity/Vol] 127 U/L High 34-123 [facility] Comment on above: Performed By: #### I JOHAN, TSH, B12, B1WB, VITD, PTHI, LIPB, SERFOL ####[address] [place], [place] [phone] ALT [Catalytic activity/Vol] 23 U/L Normal 7-38 [facility] Comment on above: Performed By: #### I JOHAN, TSH, B12, B1WB, VITD, PTHI, LIPB, SERFOL ####[place] [address] [address] [place], [place] [phone] Anion gap [Moles/Vol] 9 mmol/L Normal 9-18 [facility] Comment on above: Performed By: #### I JOHAN, TSH, B12, B1WB, VITD, PTHI, LIPB, SERFOL ####[address] [place] [phone] AST [Catalytic activity/Vol] 20 U/L Normal 13-35 [facility] Comment on above: Performed By: #### I JOHAN, TSH, B12, B1WB, VITD, PTHI, LIPB, SERFOL ####[place] [phone] Bilirubin [Mass/Vol] 0.3 mg/dL Normal 0.2-1.3 [facility] Comment on above: Performed By: #### I JOHAN, TSH, B12, B1WB, VITD, PTHI, LIPB, SERFOL ####[place] [phone] Calcium [Mass/Vol] 9.3 mg/dL Normal 8.5-10.2 [facility] Comment on above: Performed By: #### I JOHAN, TSH, B12, B1WB, VITD, PTHI, LIPB, SERFOL ####[place] [phone] Chloride [Moles/Vol] 105 mmol/L Normal 97-105 [facility] Comment on above: Performed By: #### I JOHAN, TSH, B12, B1WB, VITD, PTHI, LIPB, SERFOL ####[place] [phone] CO2 [Moles/Vol] 23 mmol/L Normal 22-30 [facility] Comment on above: Performed By: #### I JOHAN, TSH, B12, B1WB, VITD, PTHI, LIPB, SERFOL ####[address] [place] [phone] Creatinine [Mass/Vol] 0.59 mg/dL Normal 0.58-0.96 [facility] Comment on above: Performed By: #### I JOHAN, TSH, B12, B1WB, VITD, PTHI, LIPB, SERFOL ####[facility] [place], [place] [phone] eGFR- Amer. >60 Normal [facility] Comment on above: Performed By: #### I JOHAN, TSH, B12, B1WB, VITD, PTHI, LIPB, SERFOL ####[facility] [place], [place] [phone] eGFR-All Other Races >60 Normal [facility] Comment on above: Result Comment: eGFR [...] TSH, B12, B1WB, VITD, PTHI, LIPB, SERFOL ####[address] [phone] Glucose [Mass/Vol] 124 mg/dL High 74-99 [facility] Comment on above: Result Comment: The [place] Diabetes Association (ADA) provides guidance for cutoff [...] Standards of Medical Care in Diabetes 2016, [place] Diabetes Association. Diabetes Care. 2016.39(Suppl 1). Performed By: #### I JOHAN, TSH, B12, B1WB, VITD, PTHI, LIPB, SERFOL ####[place] [phone] Potassium [Moles/Vol] 4.3 mmol/L Normal 3.7-5.1 [facility] Comment on above: Performed By: #### I JOHAN, TSH, B12, B1WB, VITD, PTHI, LIPB, SERFOL ####[place] [phone] Protein [Mass/Vol] 7.0 g/dL Normal 6.3-8.0 [facility] Comment on above: Performed By: #### I JOHAN, TSH, B12, B1WB, VITD, PTHI, LIPB, SERFOL ####[address] [phone] Sodium [Moles/Vol] 137 mmol/L Normal 136-144 [facility] Comment on above: Performed By: #### I JOHAN, TSH, B12, B1WB, VITD, PTHI, LIPB, SERFOL ####[place] [phone] Urea nitrogen [Mass/Vol] 15 mg/dL Normal 7-21 [facility] Comment on above: Performed By: #### I JOHAN, TSH, B12, B1WB, VITD, PTHI, LIPB, SERFOL ####[address] [phone] Folate, Serumon 12-14-2020 Folate [Mass/Vol] ng/mL Normal >4.7 [facility] Comment on above: Result Comment: A re sult of > 20 ng/mL is not necessarily indicative of a pathologic or treatable condition: it reflects a limitation of the test methodology. Assay reference range: 4.8 to 24.2 ng/mL. Suitable for detection of folate deficiency. Reference: Folate III (Folate III) [package insert V 2.0 American]. [facility], [place], [place]: February 2015. Performed By: #### I JOHAN, TSH, B12, B1WB, VITD, PTHI, LIPB, SERFOL ####[place] [address] [place], [place] [phone] Hemoglobin A1con 12-14-2020 Glucose [Mass/Vol] 128 mg/dL Normal [facility] Comment on above: Result Comment: eAG: (Estimated average glucose) is a calculated value from HgbA1c and is customer sales representative of the average blood glucose level in the last 2-3 month period. Performed By: #### H BA1C ####[address] [phone] HbA1c (Bld) [Mass fraction] 6.1 % High 4.3-5.6 [facility] Comment on above: Result Comment: Amer [place] Diabetes Association guidelines indicate that patients with HgbA1c in the range 5.7-6.4% are at increased risk for development of diabetes, and intervention by lifestyle modification may be beneficial. HgbA1c greater or equal to 6.5% is considered diagnostic of diabetes. Performed By: #### H BA1C ####[address] [phone] Iron and TIBCon 12-14-2020 Iron [Mass/Vol] 53 ug/dL Normal 41-186 [facility] Comment on above: Performed By: #### I JOHAN, TSH, B12, B1WB, VITD, PTHI, LIPB, SERFOL ####[address] [phone] TIBC 307 ug/dL Normal 232-386 [facility] Comment on above: Performed By: #### I JOHAN, TSH, B12, B1WB, VITD, PTHI, LIPB, SERFOL ####[address] [phone] Transferrin Saturatn 17 % Normal 15-57 [facility] Comment on above: Performed By: #### I JOHAN, TSH, B12, B1WB, VITD, PTHI, LIPB, SERFOL ####[place] [address] [place], [place] [phone] Lipid Panel, Basicon 021 Cholesterol [Mass/Vol] 238 mg/dL High <200 [facility] Comment on above: Result Comment: <200 mg/dL, Desirable 200-239 mg/dL, Borderline high >239 mg/dL, High Performed By: #### I JOHAN, TSH, B12, B1WB, VITD, PTHI, LIPB, SERFOL ####[address] [phone] Cholesterol in HDL [Mass/Vol] 42 mg/dL Normal >39 [facility] Comment on above: Result Comment: 40-5 9 mg/dL, Acceptable >59 mg/dL, High: Negative risk factor for coronary heart disease <40 mg/dL, Low: Positive risk factor for coronary heart disease Performed By: #### I JOHAN, TSH, B12, B1WB, VITD, PTHI, LIPB, SERFOL ####[address] [phone] Cholesterol in LDL [Mass/Vol] 162 mg/dL High <100 [facility] Comment on above: Result Comment: <100 mg/dL, Optimal 100-129 mg/dL, Near optimal/above optimal 130-159 mg/dL, Borderline high 160-189 mg/dL, High >189 mg/dL, Very high Secondary prevention optimal LDL Cholesterol levels are recommended to be < 70 mg/dL Performed By: #### I JOHAN, TSH, B12, B1WB, VITD, PTHI, LIPB, SERFOL ####[address] [phone] Fasting Time 12 hrs Normal [facility] Comment on above: Performed By: #### I JOHAN, TSH, B12, B1WB, VITD, PTHI, LIPB, SERFOL ####[address] [place] [phone] LDL:HDL Ratio 3.86 High <2.54 [facility] Comment on above: Result Comment: Bernardino renae: 1. National Cholesterol Education Program ATP III Guideline At-A-Glance Quick Desk Reference: National Heart, Lung, and Blood [place]. National Institutes of Health. 2001: NIH Publication No. 01-3305. 2. An International Atherosclerosis Society position paper: global recommendations for the management of dyslipidemia: executive summary, Atherosclerosis. 2014: 232(2):410-413. Performed By: #### I JOHAN, TSH, B12, B1WB, VITD, PTHI, LIPB, SERFOL ####[place] [phone] Non HDL Cholesterol 196 mg/dL High <130 [facility] Comment on above: Result Comment: <130 mg/dL, Optimal 130-159 mg/dL, Near optimal/above optimal 160-189 mg/dL, Borderline high 190-219 mg/dL, High >219 mg/dL, Very high Secondary prevention optimal non HDL Cholesterol levels are recommended to be < 100 mg/dL Performed By: #### I JOHAN, TSH, B12, B1WB, VITD, PTHI, LIPB, SERFOL ####[place] [phone] TC:HDL Ratio 5.67 High <5.10 [facility] Comment on above: Performed By: #### I JOHAN, TSH, B12, B1WB, VITD, PTHI, LIPB, SERFOL ####[place] [phone] Triglyceride [Mass/Vol] 169 mg/dL High <150 [facility] Comment on above: Result Comment: <150 mg/dL, Normal 150-199 mg/dL, Borderline high 200-499 mg/dL, High >499 mg/dL, Very high Performed By: #### I JOHAN, TSH, B12, B1WB, VITD, PTHI, LIPB, SERFOL ####[place] [phone] VLDL Cholesterol 34 mg/dL High <30 [facility] Comment on above: Performed By: #### I JOHAN, TSH, B12, B1WB, VITD, PTHI, LIPB, SERFOL ####[place] [phone] Nicotine/Metab, Uron 021 3 [place] COTININE,UR,QNT <50 Normal [facility] Comment on above: Performed By: #### U NICOT ####ARUP [address] [place], [place] [id number] [place], [place] [phone] Ur Anabasine Quant <5 Normal [facility] Comment on above: Performed By: #### U NICOT ####ARUP [address] [place], [place] [id number] [place], [place] [phone] Ur Cotinine Quant <15 Normal [facility] Comment on above: Performed By: #### U NICOT ####ARUP [address] [place], [place] [phone] [place], [place] [phone] Ur Nicotine Quant <15 Normal [facility] Comment on above: Result Comment: (NOT E) INTERPRETIVE INFORMATION: Nicotine and Metabolites, Urine, Quantitative Methodology: Quantitative Liquid Chromatography-Tandem Mass Spectrometry Positive cutoff: Nicotine 15 ng/mL Cotinine 15 ng/mL 7-GP-Prhzvpkt 50 ng/mL Anabasine 5 ng/mL For medical [...] developed and its performance characteristics determined by [facility]. It has not been cleared or approved by the US Food and Drug Administration. This test was performed in a CLIA certified laboratory and is intended for clinical purposes. Performed By: [facility] [address] [place] [address] Hip Hop Performers: Norma Guerra MD Performed By: #### U NICOT ####[address] [phone] [place] [address] [place], [place] [phone] Ur Nornicotine Quant Testing is no longer included in the battery. Normal [facility] Comment on above: Performed By: #### U NICOT ####[address] [phone] [place] [address] [address] [place], [place] [phone] PTH, Intacton 12-14-2020 PTH, Intact 72 pg/mL High 15-65 [facility] Comment on above: Performed By: #### I JOHAN, TSH, B12, B1WB, VITD, PTHI, LIPB, SERFOL ####[facility] [place], [place] [phone] TSHon 12-14-2020 TSH Qn 0.531 m[IU]/L Normal 0.270-4.200 [facility] Comment on above: Performed By: #### I JOHAN, TSH, B12, B1WB, VITD, PTHI, LIPB, SERFOL ####[place] [address] [place], [place] [phone] Type and SCR (30D)on 021 ABO/RH(D) Positive Normal [facility] Comment on above: Performed By: #### T SCR30 ####[facility] [place], [place] [phone] Vitamin B1, Whole Blon 12-14 Vitamin B1 (TDP), WB 198.9 nmol/L Normal 84.0-213.0 [facility] Comment on above: Result Comment: This assay measures the concentration of thiamine diphosphate (TDP), the primary active form of vitamin B1. Approximately 90 percent of vitamin B1 present in whole blood is TDP. Thiamine and thiamine monophosphate, which comprise the remaining 10 percent, are not measured. This test was developed and its performance characteristics determined by [facility]'s Herb Christiano [facility] Pathology [facility] Laboratory [facility] [place] ([facility]). It has not been cleared or approved by the FDA. [facility] is regulated under CLIA as qualified to perform high complexity testing. This test is used for clinical purposes. It should not be regarded as investigational or for research. Performed By: #### I JOHAN, TSH, B12, B1WB, VITD, PTHI, LIPB, SERFOL ####[facility] [place], [place] [phone] Vitamin B12on 12-14-2020 Cobalamin (Vitamin B12) [Mass/Vol] 929 pg/mL Normal 232-1245 [facility] Comment on above: Performed By: #### I JOHAN, TSH, B12, B1WB, VITD, PTHI, LIPB, SERFOL ####[facility] [address] [place], [place] [phone] Vitamin D 25 Hydroxyon 12-14 Vitamin D 25 Hydroxy 26.7 ng/mL Low 31.0-80.0 [facility] Comment on above: Result Comment: Clas sification of 25 [place] Vitamin D status: Insufficiency/Moderate Deficiency: < or = 30 ng/mL Sufficiency/Optimal Levels: 31 to 80 ng/mL Toxicity: > 100 ng/mL Test performed by chemiluminescent immunoassay. Performed By: #### I JOHAN, TSH, B12, B1WB, VITD, PTHI, LIPB, SERFOL ####[facility] [address] [place], [place] [phone] HISTORY PHYSICALon HISTORY PHYSICAL HNO ID: [id number] Author: Shani Cabrales APRN.CANDLE WRAPPER Service: ? Author Type: Nurse Practitioner Type: HANDP Filed: 12/12/2020 12:23 PM Note Text: PREANESTHESIA CONSULT CLINIC TELEHEALTH VISIT Patient has been identified by name and date of : Yes This is a virtual visit using [employer] video visit. It require patient-provider interaction for [...] have LAPAROSCOPIC ADRENALECTOMY laparoscopic ultrasound. Pt takes [place] for chronic pain. Pain management per Tawnya [...] fevers. 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 No neurological symptoms or problems. Respiratory: Positive for NEREIDA resovled with weight loss, per pt retested and resolved NEREIDA, Negative for Current cough Cardiovascular: No history of HTN requiring medication, no history of angina, CHF, ME, cardiac surgery or stents. Denies rest pain, [...] and p (more content not included)... Normal [facility] Free Paco, UR LCMSMSon 11-21 Collect Lgth, UFRCRT 24 Normal [facility] Comment on above: Performed By: #### U FRCRT ####[facility]UP [address] [place], [place] [phone] [place]ille [phone]#### PV ####[place] [phone] Creatinine [Mass/Vol] 81 mg/dL Normal [facility] Comment on above: Performed By: #### U FRCRT ####[facility]UP [address] [place] [address] [phone] [place] [phone]#### PV ####[place] [phone] Total Volume, UFRCRT 1532 Normal [facility] Comment on above: Performed By: #### U FRCRT ####[facility]UP [address] [place], [place] [phone] [phone]#### PV ####[place] [phone] UR Paco Free Interp SEE NOTE Normal [facility] Comment on above: Result Comment: (NOT E) INTERPRETIVE INFORMATION: Cortisol Urine Free by LC-MS/MS Access complete set of age- and/or gender-specific reference intervals for this test in the [facility] [employer] [facility] Test Directory ([employer]). This test was developed and its performance characteristics determined by [facility]. It has not been cleared or approved by the US Food and Drug Administration. This test was performed in a CLIA certified laboratory and is intended for clinical purposes. Performed by [facility], [address] [place] [id number] www.[employer], Norma Guerra MD, Lab. Director Performed By: #### U FRCRT ####[address] [phone] [phone]#### PV ####[place] [phone] UR Paco Free ug/d 24.8 ug/d Normal <=45.0 [facility] Comment on above: Performed By: #### U FRCRT ####[address] [phone] [place] [phone]#### PV ####[place] [phone] UR Paco Free ug/L 16.20 ug/L Normal [facility] Comment on above: Performed By: #### U FRCRT ####[address] [phone] [phone]#### PV ####[place] [phone] UR Cortisol ug/g instructor weaving 20.00 ug/g ELECTRONIC SYSTEMS TECHNICIAN Normal [facility] Comment on above: Result Comment: (NOT E) Reference Interval: Cortisol ug/g instructor weaving Female Prepubertal: Less than 25 ug/g instructor weaving 18 years and older: Less than 24 ug/g instructor weaving : Less than 59 ug/g instructor weaving Male Prepubertal: Less than 25 ug/g instructor weaving 18 years and older: Less than 32 ug/g instructor weaving Performed By: #### U FRCRT ####[facility] [place], [place] [phone] Health [facility] Memorial[address] AveCMiami [place], [place] [phone]#### PV ####[facility] AveClevelElkader, [place] [phone] UR,Creatinine mg/day 1241 mg/d Normal 500-1400 [facility] Comment on above: Performed By: #### U FRCRT ####[address] [phone] [place] [address] AveCMiami [place], [place] [phone]#### PV ####[place] [address] Ave[place]iami [place], [place] [phone] Period / Volumeon 11-21-2020 Collection End Date [facility] Comment on above: Performed By: #### P V ####[place] [address] [address] Ave[place]iami [place], [place] [phone] Performed By: #### U FRCRT ####[address] [phone] Health Greene Memorial[address] AveCMiami [place], [place] [phone]#### PV ####[facility] AveClevelElkader, [place] [phone] Collection End Time 0700 [facility] Comment on above: Performed By: #### P V ####[place] [address] AveClevelElk[place], [place] [phone] Performed By: #### U FRCRT ####ARUP [address] [place], [place] [phone] Health Greene Memorial[address] AveClevelandMelissa [place] [phone]#### PV ####[facility] AveCleveland, [place] [phone] Collection Start Date Normal [facility] Comment on above: Performed By: #### P V ####[facility] AveClevelandMelissa [place]ille [phone] Performed By: #### U FRCRT ####[address] [phone] Health Greene Memorial[address] AveCSusan Ville [phone]#### PV ####[facility] AveClevelKristopher Ville [phone] Collection Start Time 0700 Normal [facility] Comment on above: Performed By: #### P V ####[facility] AveClevelandMelissa [place] [phone] Performed By: #### U FRCRT ####[address] [phone] Health Greene Memorial[address] AveCSusan Ville [phone]#### PV ####[facility] AveClevelandMelissa [place] [phone] Period 24 hr Normal [facility] Comment on above: Performed By: #### P V ####[facility] AveClevelandMelissa [place] [phone] Performed By: #### U FRCRT ####[address] [phone] Health Greene Memorial[address] AveClevelandMelissa [place] [phone]#### PV ####[address] [place], [place] [phone] Volume 1532 mL Normal [facility] Comment on above: Performed By: #### P V ####[address] [phone] Result Comment: Melanie ected on 11/25 AT 1245: Previously reported as 1550 Performed By: #### U FRCRT ####[address] [phone] [phone]#### PV ####[address] [phone] Solis Renin Ratioon 1 Solis Renin Ratio 1 Normal <4 [facility] Comment on above: Result Comment: An i ncreased Solis/Renin ratio is suggestive, but not diagnostic of primary aldosteronism if aldosterone concentration is >15 ng/dL. Performed By: #### A LDREN, DHEAS ####[address] [phone] Aldosterone 10.4 ng/dL Normal 3.1-35.4 [facility] Comment on above: Result Comment: Norm al [...] ng/dL Performed By: #### A LDREN, DHEAS ####[address] [phone] Direct Renin 7.5 pg/mL Normal [facility] Comment on above: Result Comment: [place] n Reference Range, 41-99 years: Upright: 3.6-81.6 pg/mL Supine: 2.5-45.1 pg/mL Performed By: #### A LDREN, DHEAS ####[facility] [address] [place], [place] [phone] Comp Metabolic Panelon 11-20 Albumin [Mass/Vol] 4.2 g/dL Normal 3.9-4.9 [facility] ALP [Catalytic activity/Vol] 113 U/L Normal 34-123 [facility] ALT [Catalytic activity/Vol] 17 U/L Normal 7-38 [facility] Anion gap [Moles/Vol] 4 mmol/L Low 9-18 [facility] AST [Catalytic activity/Vol] 13 U/L Normal 13-35 [facility] Bilirubin [Mass/Vol] 0.2 mg/dL Normal 0.2-1.3 [facility] Calcium [Mass/Vol] 8.7 mg/dL Normal 8.5-10.2 [facility] Chloride [Moles/Vol] 113 mmol/L High 97-105 [facility] CO2 [Moles/Vol] 21 mmol/L Low 22-30 [facility] Creatinine [Mass/Vol] 0.46 mg/dL Low 0.58-0.96 [facility] eGFR- Amer. >60 Normal [facility] eGFR-All Other Races >60 Normal [facility] Comment on above: Result Comment: eGFR [...] GFR. Glucose [Mass/Vol] 155 mg/dL High 74-99 [facility] Comment on above: Result Comment: The [place] Diabetes Association (ADA) provides guidance for cutoff [...] Standards of Medical Care in Diabetes 2016, [place] Diabetes Association. Diabetes Care. 2016.39(Suppl 1). Potassium [Moles/Vol] 3.8 mmol/L Normal 3.7-5.1 [facility] Protein [Mass/Vol] 6.7 g/dL Normal 6.3-8.0 [facility] Sodium [Moles/Vol] 138 mmol/L Normal 136-144 [facility] Urea nitrogen [Mass/Vol] 20 mg/dL Normal 7-21 [facility] DHEA-Son 11-20-2020 DHEA-S 17.9 ug/dL Low 18.9-205.0 [facility] Comment on above: Result Comment: Refe rence ranges are age and gender specific. For additional information, reference range tables can be found in the laboratory test directory. The normal values are based on the following source: Dehydroepiandrosterone sulfate (DHEA S) [package insert V 17.0 American]. [facility], [place], [place]: November 2012. Performed By: #### A LDREN, DHEAS ####[facility] [address] [place], [place] [phone] Metanephrines,Fr Plason 11-11 Metanephrine, Fr Plas 30 pg/mL Normal 12-67 [facility] Comment on above: Result Comment: Refe rence Ranges: Hypertensive adult > or = 18 yrs old: 12-72 pg/mL Normotensive adult > or = 18 yrs old: 12-67 pg/mL Normotensive children < 18 yrs old: 10-95 pg/mL This test was developed and its performance characteristics determined by [facility]'s [facility]ology [facility] [place] ([facility]). It has not been cleared or approved by the FDA. [facility] is regulated under CLIA as qualified to perform high complexity testing. This test is used for clinical purposes. It should not be regarded as investigational or for research. Performed By: #### P METAN ####[facility] [place], [place] [phone] Normetanephrine, Fr Plas 60 pg/mL Normal 18-101 [facility] Comment on above: Result Comment: Refe rence [...] developed and its performance characteristics determined by [facility]'s [facility]b Christian[facility] Pathology and Laboratory Medicine [place] ( [facility]). It has not been cleared or approved by the FDA. [facility] is regulated under CLIA as qualified to perform high complexity testing. This test is used for clinical purposes. It should not be regarded as investigational or for research. Performed By: #### P METAN ####[facility] [place], [place] [phone] CT-CT ABDOMEN WO/W CON - OVE RREADon [...] DIVERTICULUM WITH ASSOCIATED DEPENDENT CALCIFICATION/MILK OF CALCIUM. Director [facility] Transcribe Date/Time: Nov 12 2020 5:43P Dictated by : MILLI TRISTAN MD This examination was interpreted and the report reviewed and electronically signed by: MILLI TRISTAN MD on Nov 12 2020 5:55PM EST [id number] Normal [facility] CT-CT ABDOMEN WO/W CON IMPOR Ton 11-08-2020 CT-CT ABDOMEN WO/W CON IMPORT Images were obtained outside of [facility] [id number] Normal [facility] CNPIvanna 11-01-2020 CNPN Telephone ([facility]) JESSICA DILLARD ([id number]) 1965 F Date Time Provider Department 11/01/20 JESUS RAMIREZ [facility] During your visit today, we recorded the following information about you: Zev Jean Baptiste [facility] Patient Service Spec 11/01/2020 3:15 PM Signed Pt called back with fax # for [facility]. Number is [phone]. Adrianna Dionne Pss 11/02/2020 1:23 PM Signed Patient requesting to be notified once needed lab order and CT Adrenal order has been faxed to [facility]. Okay to leave voice message through #[phone]. Please advise. Ysabel Linton Pss 11/06/2020 9:04 AM Addendum Faxed orders for CT adrenal and Creatinine draw to [facility] at [phone]. Left message for patient on her cell phone to make her aware. Ysabelcristobal Linton Pss Allergies As of Date: 11/01/2020 Noted Allergy Reaction CIPROFLOXACIN 10/19/2020 16 - Unknown Date Reviewed: 10/19/2020 Reviewed by: Maris Caruso RN - Fully Assessed Reason for Visit: Patient Question [1477] Primary Visit Diagnosis:Adrenal nodule (HCC) [E27.8] Order(s):CREATININE BLD [SQCRET] Order #: [id number] FUTURE Prescriptions as of 11/06/2020 - VITAMIN [...] Encounter Status:Closed by JESUS RAMIREZ on 11/05/20 [facility] HISTORY PHYSICALon HISTORY PHYSICAL HNO ID: [id number] Author: Shade Hilton MD Service: General Surgery [...] 19, 2020 TIME: 9:50 AM PAGER/CONTACT #: [phone] [facility] NURSING PROGon 10-19-2020 NURSING PROG HNO ID: [id number] Author: Maris Caruso RN Service: ? Author Type: Registered Nurse Type: Nursing Progress Note Filed: 10/19/2020 9:54 AM Note Text: PATIENT EDUCATION TOPIC: PROCEDURE / SURGERY: Procedure/Surgery: EGD PATIENT NAME: Jessica Dillard PATIENT LOCATION: [facility] ENDO POOL/[facility] ENDO POOL READINESS TO LEARN [...] REFERRAL (RECOMMENDATION): None Electronically Signed By: Maris Caruso [facility] SURGICAL PATHOLOGYon 021 SURGICAL PATHOLOGY Specimen originated from [facility] Specimen #: [id number] Submitting Physician: Jesus Ramirez M.D. FINAL DIAGNOSIS [...] in one cassette. Gross examination performed at [facility], [address] [place] [address] 10/19/2020 5:46:23 PM Date of Report: 10/22/2020 Date of Procedure: 10/19/2020 Date of Receipt: 10/19/2020 Submitted by: Jesus Ramirez M.D. Location: [facility]ENDO Diagnostic interpretation performed at [facility], [address] [place] [address]. CLIA Number: [id number] [facility] Tele[facility] ([facility]) JESSICA DILLARD ([id number]) 1965 F Date Time Provider Department 09/13/20 STELLA PIKE [facility] During your visit today, we recorded the following information about you: Johanna Kimball [facility] 09/13/2020 12:48 PM Signed Pt had blood [...] Encounter Status:Closed by JOHANNA GALEANA on 10/05/20 [facility] Chadd 09-12-2020 CNPN Telephone ([facility]) JESSICA DILLARD ([id number]) 1965 F Date Time Provider Department 09/12/20 PAUL [place] [facility] During your visit today, we recorded the following information about you: Wendie Jean 09/12/2020 1:03 PM Signed Patient called with questions regarding recent lab work return call to [phone] Barbara Dan RN 09/12/2020 1:47 PM Signed Patient called inquiring if we had received lab work from an outside facility which Dr. Pike had requested d/t her elevated cholesterol. Let her know that I did not see anything scanned into [employer] and that she may call Dr. Pike's office to see if he had received this. She is in agreement with same. Allergies As of Date: 09/12/2020 (No Known Allergies) Date Reviewed: 08/02/2020 Reviewed by: Deborah Haley) Jing - Fully Assessed Reason for Visit: Patient Question [9107] Prescriptions as of 09/12/2020 Sig: PANTOPRAZOLE 40 [...] Of Date: 09/12/2020 (None) Encounter Status:Closed by BARBARA DAN on 6/2/21 [facility] COVID-19 Antigenon 1 COVID-19 Antigen Results called at 1455 on [...] its performance Maryellen Disclaimer characteristic determined by [employer] and Maryellen Disclaimer validated at [facility]. This Maryellen Disclaimer test has not [...] is terminated or revoked sooner. PERFORMED BY: [place] [address] PATHOLOGIST RATE CLERK DAVID THOMAS M.D. Normal [facility] Comment on above: Performed By: #### S OFIAPOS, COVID-19 MARYELLEN #### [facility] [address] [place] [address] Maryellen Ag Positiveon 06-26-19 21 Maryellen Ag Positive Positive Normal Negative [facility] Comment on above: Result Comment: This is a duplicate Maryellen SARS Antigen (ZARINA) result to be used for statistical tracking purpose only. PERFORMED BY: [place] [address] PATHOLOGIST RATE CLERK DAVID THOMAS M.D. Performed By: #### S OFIAPOS, COVID-19 MARYELLEN #### [facility] [address] [place] [address] Reminderson 01-10-2019 Reminders - From: Venkatesh Rodas MD To: King Lawson; Sent: 01/10/2019 10:21:54 EDT Show up: 01/10/2019 10:22:00 EDT Subject: Colonoscopy reminder Reminder/Recall Repeat colonoscopy in 5 years Normal [facility] Coding Summary.on 12-17-2018 Coding Summary. CODING DATE: 019 FINAL [facility] DSC STATUS: Home (Routine DC) PAYOR: Medicaid EA DESCRIPTION 0081 ECHOCARDIOGRAPHY ADMIT DX: REASON FOR [...] CphT Date Saved: 12/17/2018 07:41 am Normal [facility] Echo Transthoracic Completeo n 12-17-2018 Echo Transthoracic Complete Echocardiology Procedure Exam Date/Time Accession # Ordering Echo Transthoracic 12/16/2018 16:00 EDT [id number] GLENDY OSORIO, STELLA Complete CPT code 88608 Reason for Exam (Echo Transthoracic Complete) ABNORMAL, [...] # Ordering Echo Transthoracic 12/16/2018 16:00 EDT [id number] STELLA PIKE MD Complete Report Mitral valve: [...] MD Transcribed by: kandi Technologist: YAMILET Coronel [facility] Coding Summary.on 10-21-2018 Coding Summary. CODING DATE: 019 FINAL [facility] DSC STATUS: Home (Routine DC) PAYOR: Medicaid EAPG DESCRIPTION 0457 VENIPUNCTURE 0395 LEVEL II IMMUNOLOGY [...] PROC EAPG STAT DESCRIPTION DOCTOR NAME DATE [id number] Gerry Cueva MD, [facility] 10/18/2018 phagogastroduodenoscopy, flexible, transoral; with biopsy, single or multiple 79203 0137 Colonoscopy, flexible; Gerry Cueva MD, [facility] 10/18/2018 with removal of tumor(s), polyp(s), or other lesion(s) by snare technique PT Colorectal cancer screening test; converted to diagnostic test or other procedure 48079 0137 Colonoscopy, flexible; Gerry Cueva MD, [facility] 10/18/2018 with directed submucosal injection(s), any substance PT Colorectal cancer screening test; converted to diagnostic test or other procedure 48431 Anesthesia for combined Vinod Macedo DO, [facility] 10/18/2018 upper and lower gastrointestinal endoscopic procedures, [...] Revised Date Saved: 10/21/2018 10:48 am Normal [facility] H. Pylori, IgG Abon 10-21-19 19 H. pylori IgG IA Qn (S) 0.24 {index_val} 0.00-0.79 [facility] Comment on above: Result Comment: Nega tive <0.80 Equivocal 0.80 - 0.89 Positive >0.89 Performed at: [facility] [address] [place], [place] [id number] PhD Hyacinth Samayoa Performed By: #### [id number] #### [facility] [address] [place] [id number] Progress Note-Physicianon Progress Note-Physician Patient: JESSICA DILLARD [...] box directions or as directed by physician, [facility]/pharmacy #[id number] Documented Medications Documented Motrin IB: 800 mg, Oral, q6hr, Refills(s) 0, Inflammation metformin: 500 mg, Oral, BID, Refills(s) 0, Blood glucose, Home Medications (3) Active metformin 500 mg, Oral, BID Motrin IB 800 mg, Oral, q6hr Suprep Bowel Prep Kit oral liquid 177 mL, Oral, As Directed Problem list: All Problems Arthritis / SNOMED CT 9404856 / Confirmed Obesity / SNOMED CT 3597031415 / Confirmed Sleep apnea / SNOMED CT 964469286 / Confirmed Resolved: Bronchitis / SNOMED CT 19532502 Resolved: Pneumonia / SNOMED CT 573347429 Histories Past Medical History: Resolved Bronchitis (36360077): Resolved. Pneumonia (340001965): Resolved. Social History Social & Psychosocial Habits [...] Cardiovascular: Regular rhythm. Neurologic: Alert, Oriented. Plan [place] Society [employer] Anesthesiologists (ASA) physical status classification: Class III. Anesthetic Preoperative Plan Anesthesia: General. . Anesthetic plan, risks, benefits, and alternatives discussed with the patient and/or family. Communication: face to face with (patient 5 minutes, Patient educated on smoking cesstation). Normal [facility] Comment on above: Result Comment: Elec tronically Signed By: Mal Brock Jr, DO\.br\Date and Time Signed: 10/20/18 12:29 EDT Main OR Intraoperative Recor don 10-19-2018 Main OR Intraoperative Record IntraOp Document Type FT Summary Primary Physician: Venkatesh Rodas MD Finalized Date/Time: 10/19/18 06:40:45 Pt. Name: JESSICA DILLARD/Sex: 1965 Female Med Rec #: [id number] Physician: Venkatesh Rodas MD Financial #: [id number] Pt. Type: O Room/Bed: / Admit/Disch: 10/18/18 13:57:34 - 10/18/18 23:59:59 Institution: Case Times FT Entry 1 Patient Times In Room 10/18/18 14:35:00 Out Room 10/18/18 15:18:00 Procedure Times Start 10/18/18 14:39:00 Stop 10/18/18 15:14:00 Anesthesia Times Start 10/18/18 14:35:00 Stop 10/18/18 15:18:00 Time at [place] 10/18/18 14:58:00 Last Modified By: Milka Núñez CST 10/18/18 15:18:09 General Comments: 14:45 EGD finished. HB RN 14:50 Colonoscopy started.--------THERESA RN 10/19/18 Chart opened to review and send charges Iris Núñez CST Case Attendance FT Entry 1 Entry 2 Entry 3 Case Attendee Mal Brock Jr, DO RN, Fransisca Gregory Role Performed Anesthesiologist of Meter Repairer - Primary Scrub - Primary Record Time In 10/18/18 14:35:00 10/18/18 14:35:00 10/18/18 14:35:00 Time Out 10/18/18 15:18:00 10/18/18 15:18:00 10/18/18 15:18:00 Procedure EGD AND COLONOSCOPY(.) EGD AND COLONOSCOPY(.) EGD AND COLONOSCOPY(.) Comments EGD Last Modified By: Jess MEDRANO, Donna Mercado RN, Donna Mercado RN, Donna 10/18/18 15:18:11 10/18/18 15:18:11 10/18/18 15:18:11 Entry 4 Entry 5 Case Attendee Gerry Cueva MD, Pradip GRACE/SA, Malika Riddle Role Performed Surgeon - Primary [...] (If Applicable) PreOp Antibiotic No Time Out Mal Brock Jr, DO, Given Participants Jess MEDRANO, Oneil Thompson Kirstyn K, Abdal Raheem MD, Sulieman Time Out Complete 10/18/18 14:38:00 Outcomes Met? [...] Primary Procedure Yes Primary Surgeon Rena Rodas MDoolitic Cecile 10/18/18 14:39:00 Stop 10/18/18 15:14:00 Anesthesia Type [...] and tissue Entry 1 Skin Integrity Intact, [place], Warm, and Skin Abnormality No Dry Outcomes [...] RN Patient Status Stable Skin. Condition Intact, [place], Warm, and Dry Airway Maintenance Oxygen in Use? No Outcomes Met? Yes Last Modified By: Donna Mercado RN 10/18/18 06:59:29 Post-Care Text: The patient is free from signs and symptoms of injury related to transfer/transport General Comments: Report given to pacu nurse. THERESA photoengraving helper Administration FT Pre-Care Text: Verifies allergies, administers prescribed medications and solutions, administers prescribed antibiotic therapy and immunizing agents as ordered, evaluates response to medications Administers prescribed medications and solutions Entry 1 Expiration Date Yes Outcomes Met? Yes Verified Last Modified By: Donna Mercado RN 10/18/18 06:59:24 Post-Care Text: The patient received appropriate medication(s) safely administered during the perioperative period For [facility] please see scanned medication reconcilliation form [...] 15:18 Milka Núñez CST 10/19/18 06:40 Normal [facility] In[facility] Patient Summaryon 10-18-2018 Inpatient Patient Summary [facility] Clinical Discharge Instructions PERSON INFORMATION Name: JESSICA DILLARD [facility]#:[id number] PHYSICIANS Admitting Physician: Venkatesh Rodas MD Attending Physician: Venkatesh Rodas MD PCP: Yaneth An MD Discharge Diagnosis: Comment: PATIENT EDUCATION INFORMATION Instructions: Colonoscopy, Care After Surgery Salam (CUSTOM); Hemorrhoids; Colon Polyps; Esophagogastroduodenoscopy, Care After; Peptic Ulcer Disease; [facility] NSAIDS-Nonsteroidal Anti-Inflammatory Medications (CUSTOM); Esophagitis; Duodenitis Medication Leaflets: Follow up: With: Address: When: Venkatesh Cueva [address] [place] [address] Business (1) 12/16/2018 3:30 PM Type Location [facility] Follow Up [facility] 12/16/2018 3:30 PM 12/16/2018 3:45 PM Confirmed MEDICATION LIST Comment: Normal [facility] Main OR PACU I Recordon Main OR PACU I Record PACU Phase I Document Type FT Summary Primary Physician: Venkatesh Rodas MD Finalized Date/Time: 10/18/18 16:37:42 Pt. Name: JESSICA DILLARD/Sex: 1965 Female Med Rec #: [id number] Physician: Venkatesh Rodas MD Financial #: [id number] Pt. Type: O Room/Bed: / Admit/Disch: 10/18/18 [...] 16:35 Melissa Brown RN 10/18/18 16:37 Normal [facility] Main OR Preoperative Recordo n 10-18-2018 Main OR Preoperative Record Holding Area Document Type FT Summary Primary Physician: Venkatesh Rodas MD Finalized Date/Time: 10/18/18 14:25:35 Pt. Name: JESSICA DILLARD/Sex: 1965 Female Med Rec #: [id number] Physician: Venkatesh Rodas MD Financial #: [id number] Pt. Type: O Room/Bed: / Admit/Disch: 10/18/18 [...] By: Kavya Arango RN 10/18/18 14:25 Normal [facility] Patient Education - Texton 0 10-18-2018 Patient [...] of bright red blood. ? Vomiting of chhffh-zaogeb-dvqztdt materials. DIAGNOSIS A diagnosis is usually made [...] directed by your caregiver. Do not substitute pfve-eyo-pldflfj medicines for prescription medicines without talking to [...] Document Reviewed: 10/27/2012 ExitCare? Patient Information ?2015 [place] [employer] [facility]. This information is not intended to replace [...] ? neck pain Some NSAIDs are available tgrp-atj-akfepqo, without the need for a prescription. However, [...] than your doctor has prescribed. Follow the vwmm-xki-hhxqzhi labels and do not exceed the recommended [...] Document Reviewed: 06/08/2012 ExitCare? Patient Information ?2015 [employer]. This information is not intended to replace [...] Document Reviewed: 03/16/2013 ExitCare? Patient Information ?2015 [employer]. This information is not intended to replace [...] pillows will not help. ? Only take xyzl-eoo-ncefzde or prescription medicines as directed by your [...] Document Reviewed: 11/28/2011 ExitCare? Patient Information ?2015 [employer]. This information is not intended to replace [...] Garlic. ? Onions. ? Spicy foods. ? [place] fruits, such as oranges, franky, or limes. ? Foods that use tomato-based sauces, such as pasta sauce, chili, salsa, and pizza. ? Fatty foods. ? Fried foods. Document Released: 07/25/2013 Document Revised: 08/14/2014 Document Reviewed: 07/25/2013 ExitCare? Patient Information ?2015 [place] [employer] [facility]. This information is not intended to replace [...] applied as directed. ? ? Only take fpew-lei-flelfug or prescription medicines as directed by your [...] Document Reviewed: 02/01/2013 ExitCare? Patient Information ?2014 [employer]. This information is not intended to replace advice given to you by your health care provider. Make sure you discuss any questions you have with your health care provider. Normal [facility] Vital Signs Date Time Vital Sign Value Performing Clinician Julissa melissa 08-28-2021 16:04-0400 SaO2% (BldA) [Mass fraction] 96 % Wyatt Tapia MD Work Phone: [employer] 08-28-2021 15:56-0400 Body temperature 97.81 [degF] Wyatt Tapia MD Work Phone: [employer] [facility] 08-28-2021 15:56-0400 Diastolic blood pressure 85 mm[Hg] Wyatt Tapia MD Work Phone: [employer] 08-28-2021 15:56-0400 Heart rate 99 /min Wyatt Tapia MD Work Phone: [employer] 08-28-2021 15:56-0400 Respiratory rate 14 /min Wyatt Tapia MD Work Phone: [employer] 08-28-2021 15:56-0400 Systolic blood pressure 137 mm[Hg] Wyatt Tapia MD Work Phone: [employer] 08-28-2021 11:00-0400 Body mass index (BMI) [Ratio] 38.52 kg/m2 Wyatt Tapia MD Work Phone: [facility] 08-28-2021 11:00-0400 Body weight 101.8 kg Wyatt Tapia MD Work Phone: [facility] 08-26-2021 10:00-0400 Body height 162.6 cm Wyatt Tapia MD Work Phone: [facility] Encounters Encounter Date Encounter Type Care Provider Facility Start: 10-16-2022 ambulatory NARMACKRANATH LAKSHMIPATHY . Facility:[facility] Start: 07-29-2022 ambulatory NARNEILATH ISAMARMIPATHEvens . Facility:[facility] Start: 07-24-2022 End: 07-25-2022 ambulatory NARMACKRANATH ISAMARMIPATHY . Facility:[facility] Start: 07-03-2022 End: 07-04-2022 ambulatory ROSI PENNMIPATHEvens . Facility:[facility] Start: 05-01-2022 End: 05-02-[address] KAITLIN WILHELM . Facility:[facility] Start: 04-22-2022 Encounter for preprocedural laboratory examination DR KAITLIN WILHELM . [facility] Start: 04-01-2022 End: 04-01-[address] YANETH [...] abnormal findings DR YANETH AN . [facility] Start: 11-19-2021 End: 11-20-[address] YANETH AN . Facility:[facility] Start: 11-19-2021 End: 11-20-2021 Encounter for general adult medical examination without abnormal findings DR YANETH AN . Facility:[facility] Start: 10-10-2021 End: 10-11-[address] KAITLIN WILHELM . Facility:[facility] Start: 08-30-2021 End: 09-28-[address] DOCTOR THOMAS Facility:[facility] Start: 08-28-2021 End: 08-28-2021 ambulatory WYATT TAPIA [facility] Start: 08-28-2021 End: 08-28-2021 Evaluation and management of inpatient Wyatt Tapia MD Work Phone: [facility] Start: 08-28-2021 End: 08-28-2021 Subsequent hospital visit by physician Wyatt Tapia MD Work Phone: [facility] Start: 08-26-2021 End: 08-27-[address] DOCTOR [...] on above: Performed By: #### T SCR30 ####[address] [id number] Start: 12-14-2020 Antibody screen Comment on above: Performed By: #### T SCR30 ####[facility] [place], [place] [id number] Plan of Treatment Date Care Activity Detail Author Start: 12-14-2025 LIPID SCREEN LIPID SCREEN [facility] Start: 03-22-2024 DIABETES SCREEN DIABETES SCREEN [facility] Start: 08-02-2022 Hypertension/CHF/CAD Annual BMP Blood Test Hypertension/CHF/CAD Annual BMP Blood Test [facility] Start: 08-28-2021 End: 08-28-2021 Arthrp acetblr/prox fem prostc agrft/algrft ARTHROPLASTY HIP TOTAL Unilateral primary osteoarthritis, right hip 08/28/2021 12:57 PM EDT [facility] Main OR Start: 07-01-2021 Adolescent depression screening assessment Depression Screening [facility] Start: 07-01-2021 Hepatitis C screening Hepatitis C Screening [facility] Start: 07-01-2021 HIV screening HIV Screening [facility] Start: 07-01-2021 Lipid panel Cholesterol Screening (Lipid Panel) [facility] Start: 07-01-2021 Screening for malignant neoplasm of breast Breast Cancer Screening [facility] Start: 07-01-2021 Screening for malignant neoplasm of colon Colorectal Cancer Screening: Colonoscopy [facility] Start: 07-01-2021 Screening for malignant neoplasm of lung Lung Cancer Screening (Low Dose CT) [facility] Start: 07-01-2021 Social Influencers of Health Screening Social Influencers of Health Screening [facility] Start: 07-17-2019 Influenza vaccination LUNG CANCER SCREENING [facility] Start: 2014 SHINGRIX VACCINE (1 of 2) SHINGRIX VACCINE (1 of 2) [facility] Start: 2014 Zoster Vaccines (1 of 2) Zoster Vaccines (1 of 2) [facility] Start: 2009 COLOGUARD (FIT-DNA) COLOGUARD (FIT-DNA) [facility] Start: 2009 Colonoscopy COLONOSCOPY [facility] Start: 2009 COLORECTAL CANCER SCREENING COLORECTAL CANCER SCREENING [facility] Start: [address] COLONOGRAPHY [facility] Start: 2009 FECAL OCCULT BLOOD FECAL OCCULT BLOOD [facility] Start: 2009 SIGMOIDOSCOPY SIGMOIDOSCOPY [facility] Start: 2004 Mammography MAMMOGRAM [facility] Start: 1994 HPV TESTING HPV TESTING [facility] Start: 1985 PAP TESTING PAP TESTING [facility] Start: 1985 Screening for malignant neoplasm of cervix Cervical Cancer Screening: Pap Smear [facility] Start: 07-17-1983 DTaP,Tdap,and Td Vaccines (1 - Tdap) DTaP,Tdap,and Td Vaccines (1 - Tdap) [facility] Start: 07-17-1983 Urine microalbumin profile DTAP,TDAP,TD (1 - Tdap) [facility] Start: 1982 HEPATITIS C SCREENING HEPATITIS C SCREENING [facility] Start: 1982 HIV SCREENING HIV SCREENING [facility] Start: 1976 Adult depression screening assessment DEPRESSION SCREENING [facility] Glucose [Mass/volume ] in Serum or Plasma POCT Glucose, blood Point of Care Testing-Docked Device Routine 08/28/2021 3:42 PM EDT [facility] Work Phone: Immunizations Immunization Date Immunization Notes Care Provider Fa wojciech 12-28-2020 influenza, injectabl e, quadrivalent, preservative free Paul Nj MD Work Phone: [facility] Payers Date Payer Category Payer Medicaid [id number] 2020 Medicaid [id number] 1965 Unknown [id number] 2.16.8 40.1.943766.3.579.2.1143 1965 Unknown [id number] 2.16.84 0.1.687121.3.579.2.593 1965 Unknown [id number] 2.16.84 0.1.726706.3.579.2.593 1965 Unknown [id number] 2.16.84 0.1.482681.3.579.2.593 1965 Unknown [id number] 2.16.84 0.1.583850.3.579.2.593 04 Unknown [id number] 2.16.84 0.1.804931.3.579.2.593 1965 Unknown [id number] 2.16.84 0.1.140406.3.579.2.593 1965 Unknown [id number] 2.16.84 0.1.845954.3.579.2.593 1965 Unknown [id number] 2.16.84 0.1.318436.3.579.2.593 1965 Unknown [id number] 2.16.84 0.1.471979.3.579.2.593 1965 Unknown [id number] 2.16.84 0.1.996062.3.579.2.593 1965 Unknown [id number] 2.16.84 0.1.614974.3.579.2.593 1965 Unknown [id number] 2.16.84 0.1.296636.3.579.2.593 1965 Unknown [id number] 2.16.84 0.1.579123.3.579.2.593 1965 Unknown [id number] 2.16.84 0.1.026450.3.579.2.593 1965 Unknown [id number] 2.16.84 0.1.682968.3.579.2.593 1965 Unknown [id number] 2.16.84 0.1.377213.3.579.2.593 1965 Unknown [id number] 2.16.84 0.1.772443.3.579.2.593 1965 Unknown [id number] 2.16.84 0.1.433479.3.579.2.593 1965 Unknown [id number] 2.16.84 0.1.567094.3.579.2.593 1965 Unknown [id number] 2.16.84 0.1.998524.3.579.2.593 1960 Medicaid [id number] Social History Date Type Detail Facility Start: 12-12-2020 End: 08-26-2021 Tobacco smoking status NHIS Ex-smoker [facility] Work Phone: Start: 08-27-2015 End: 04-13-2018 History of tobacco use Current smoker [facility] Work Phone: End: 04-13-2018 History of tobacco use Cigarette Smoker [facility] Work Phone: Start: 12-12-2020 Cigarettes smoked current (pack per day) - Reported 1 [facility] Start: 12-12-2020 End: 08-26-2021 Tobacco use and exposure Smokeless tobacco non-user [facility] Work Phone: Start: 12-12-2020 History SDOH Alcohol Comment 2-3 per month [facility] Start: 1965 Sex Assigned At Female C [facility] Start: 08-28-2021 Alcohol intake Ex-drinker (finding) [facility] Start: 1965 Sex Assigned At Not on file T [facility] Start: 08-18-2021 End: 08-28-2021 Exposure to SARS-CoV-2 (event) Not sure [facility] Medical Equipment Procedure Code Equipment Code Equipment Origin al Text Equipment Identifier Dates G7 Finned 4 H Sh ell 54mm F - Sn/A - [id number] ()[id number] [id number]( 21)N/A, [id number] FDA Start: 08-28-2021 Liner G7 Neutral Ve 36mm F - Sn/A - [id number] ()[id number] [id number] (21)N/A, [id number] FDA Start: 08-28-2021 G7 Screw 6.5mm X 30mm - Sn/A - [id number] ()[id number] [id number]( 21)N/A, [id number] FDA Start: 08-28-2021 Complete Ho Collarless Sz 6 - Sn/A - [id number] [id number]( 21)N/A, [id number] FDA Start: 08-28-2021 Hip Hd Fem 03/26 Blx 36mm -3.5 - Sn/A - [id number] [id number]( 21)N/A, [id number] FDA Start: 08-28-2021 Clinical Notes 07-30-2020 to 07-24-2022 Shani Matamoros, RN - 08/28/2021 5:33 PM EDAlli Hyman, PT - 08/28/2021 4:30 PM Jaxon Hall, RN - 08/28/2021 1:48 PM EDAna Smith, [...] be discharged home after meeting criteria. [facility] 07-03-2022 Note CONSULTATION CONSULTATION DATE: 07/03/2022 [...] p.o. daily to b.i.d., as well as [place] 5 mg b.i.d., activity modification and a home exercise program. She reports she does respond to baclofen 10 mg at h.s. RECOMMENDATIONS: I have recommended a right knee joint injection. We will obtain urine toxicology screen at today's visit. [facility] 05-01-2022 Note CONSULTATION CONSULTATION DATE: 05/01/2022 [...] 10 mg q.h.s., Celebrex 200 mg daily, [place] 5/325 b.i.d. Patient's REVIEW OF SYSTEMS / [...] three months' time unless otherwise indicated. [facility] 03-20-2022 Note CONSULTATION CONSULTATION DATE: 03/20/2022 [...] Current medications include Celebrex 200 mg daily, [place] 5/325 b.i.d., baclofen 10 mg q. h.s [...] heat and vitamins. We will refill her [place] and baclofen at the set dose and frequency. Patient agrees to move forward with the procedure and will be followed up in the clinic thereafter. [facility] 12-12-2021 Note CONSULTATION CONSULTATION DATE: 12/12/2021 [...] Current medications include Celebrex 200 mg daily, [place] 5/325 b.i.d., baclofen 10 mg q.h.s. and [...] refill for baclofen 10 mg q.h.s and [place] 5/325 b.i.d. will be sent to her pharmacy. Patient agrees to move forward and be followed up in the clinic post procedure. [facility] 10-10-2021 Note CONSULTATION CONSULTATION DATE: 10/10/2021 [...] she had a total hip replacement in [place] and feels great relief. Her pain is four out of 10 today. She does have right knee pain with known osteoarthritis and bone on bone to the lateral aspect. She has received a steroid knee injection on 10/07/2021 which gave her a fair amount of relief. Her current medications include Celebrex 200 mg q. day, Baclofen 10 mg q.h.s. and [place] 5/325 t.i.d. The patient feels she doesn't [...] knee osteoarthritis. PLAN: We will refill her [place] but decrease the dose to 5/325 b.i.d. [...] of care and all questions were answered. [facility] Signed and Approved by: THERESA WAGNER . 10/17/2021 10:22:00 [facility] 08-28-2021 History of Present illness Narrative Patient [...] (at family request) for home. Pt signed Zmanda paperwork. Pt transfer and gait training with FWW SBA. Curb step training with cga and cues for best safety practice as pt with bad R knee per report. Pt gait x16geed with antalgic gait pattern. Pt with 1+1 [...] Level of Function: Prior Function Level of [place]: Independent with mobility and functional transfers Prior [...] Gait Training Activity 1: Gait with FWW [id number] SBA Gait Training Activity 2: Curb step training with FWW cga due to R knee deficits Gait Training Activity 3: Issued FWW and set to proper height, pt signed [facility] paperwork Assessment/Plan PT Assessment PT Assessment/ Barriers [...] Outcomes Date/Time User Outcome 08/28/21 1708 Cary Hyamn PT Completed Goal: Pt will transfer with [...] Outcome 08/28/21 1708 Cary Hyman PT Completed Education Documentation Precautions, [...] of the procedure. documented in this encounter [facility] 08-28-2021 Procedure note Handoff report given to MARCELA Mcleod. Jessica Dillard 1965 [facility], A Member of [facility] OPERATIVE REPORT PATIENT NAME: Jessica Dillard DATE OF : 1965 CSN: [id number] SURGEON: Wyatt Tapia MD, FACS DATE OF SERVICE: 08/28/2021 DATE OF SURGERY: 08/28/2021 PREOPERATIVE DIAGNOSIS: OA right hip (M16.11) POSTOPERATIVE DIAGNOSIS: OA right hip (M16.11) PROCEDURE: Primary Right Total Hip Arthroplasty utilizing the direct lateral approach (94525) Femoral Component: [employer] Avenir Complete Collarless Stem , High Offset Size: 6 Acetabular Component: G7 4 Hole Finned Acetabular Shell , 54mm Liner: G7 Vivacit-E Neutral, F, 36mm Screws: G7 Acetabular Screw(s) 6.5x30mm (-); Head Neck Unit: [employer] Ceramic Taper , 36mm , -3.5 ATTENDING SURGEON: Wyatt Tapia MD, FACS TRAVELING PHLEBOTOMIST: Zafar Rivas PA-C INDICATIONS: Patient is a [...] satisfactory position and alignment of the components. TRAVELING PHLEBOTOMIST/ATTENDING PHYSICIAN: Zafar Rivas PA-C assisted with proper [...] He assisted with the dislocation of the [place] hip, as well as dislocation/relocation of the [...] Wyatt Tapia MD, FACS on 08/28/2021 16:59:00 [facility], A Member of [facility] OPERATIVE REPORT PATIENT NAME: Jessica Dillard DATE OF : 1965 CSN: [id number] SURGEON: Wyatt Tapia MD, FACS DATE OF SERVICE: 08/28/2021 DATE OF SURGERY: 08/28/2021 REF [id number] LOT [id number] G7 Finned Acetabular Shell 54MM SHELL SIZE F LINER SIZE Acetabular shell Use By 2031-04-19 () [id number] ( [id number]) [id number] REF [id number] LOT [id number] G7 Vivacit-E Size F 36.00 Millimeter Non-constrained polyethylene acetabular liner Use By 2026-07-03 () [id number] (17 [id number] (13) [id number] REF [id number] LOT [id number] G7 ACETABULAR SCREW 6.5MM DIAMETER 30 SCREW LGTH Orthopaedic bone screw, non-bioabsorbable, sterile Use By 2031-06-02 () [id number] (17 [id number]) [id number] REF [id number] LOT [id number] Avenir Complete Size 6 Coated hip femur prosthesis, modular Use By 2025-11-28 () [id number] (17 [id number]) [id number] REF [id number] LOT [id number] Biolox delta 36/-3.5 'S' BIOLOX DELTA, CERAMIC FEMORAL HEAD, S, 36/-3.5, TAPER 12/14 Use By 2031-05-22 () [id number] (17 [id number] (86) [id number] . documented in this encounter [facility] 08-28-2021 History and physical note History and Physical Update ( H&P completed within the previous thirty days ) I personally reviewed the History and Physical, interviewed and examined the patient prior to surgery. No changes have occurred in the patient's condition since the History and Physical was completed. documented in this encounter [facility] 08-26-2021 Hospital course Narrative Pre-Surgery Instructions: Medication [...] ordered/prescribed by your pcplast dose 08/21 HYDROcodone-acetaminophen ([place]) 5-325 mg per tablet Continue to take [...] your pcp Additional Instructions: Medication instructions per [facility] Pt states currently using CPAP - Has [...] prior to your surgery. Check in at reception clerk desk [address] [place] [address]. If Outpatient, these additional instructions apply: An adult must stay with you the whole time you are here and drive you home. An adult must stay with you at home for 24 hours due to Anesthesia. If you have NEREIDA, you are required to stay 3 hours after your surgery before we can discharge you. documented in this encounter [facility] 05-10-2021 Note HNO ID: [id number] Author: Anila Ellis RD Service: ? Author [...] thiamine) Iron 45-60 mg and calcium citrate 7793-6518 mg/day 2. Protein goal: 74 grams protein/day 3. Fluid goal: 64 ounces per day (no carbonation, caffeine, calories, alcohol) 4. Start to exercise from a sitting position: 20-25 minutes/session 3-4 x per week: Chair or standing Team Body Project https://www.Sirion Holdingsube.com/watch?v=e 8opMY-SoZc Chair exercise N-SidedpeVinny https://www.Lasso/lita gilbert/videos-detail.asp?video=38 Nida Najera Easy walk in place 15 min https://www.Brandfitters.com/watch?v=n noW99jetGN Body Project 30 min https://RadioScape.Brandizi/J-KmsC8MO-7 Nida Najera? Higher intensity walk 30 min https://www.youSTEMpowerkidsube.com/watch?v=c yTH4JLo0PJ 5. Practice mindful eating habits-take small portions, eat slowly, chew thoroughly Nutrition Monitoring AND Evaluation:BMI< 40 Criteria: weight check Need for Follow up: 3 months post op Appointment Start Time: 2:30 PM Appointment End Time: 3:27 PM Time Spent on Consult: 57 minutes - Group Anila Ellis MS,RD,CSOWM,LD [facility] 05-01-2021 Note HNO ID: [id number] Author: Barbara Martines, PhD Service: ? Author Type: Psychologist Type: Progress Notes Filed: 05/09/2021 6:51 AM Note Text: Summary: BMI Psych Post-Op [facility] Cost Center: [facility]BO Billing code: Conrad CPT Code: 1424144- virtual (MyChart Zoom) Due to the federal emergency declaration and the need for ongoing mental health services, the following visit was completed virtually and informed consent obtained orally to reduce the risk of COVID-19 exposure. Oral consent to services related to virtual visits was obtained after information was sent via NakedRoom or read to patient if 2Duchehart not available. Bariatric Behavioral Services Progress Note [...] -200 unit pwp (more content not included)... [facility] 04-25-2021 Note HNO ID: [id number] Author: Paul Nj MD Service: ? Author [...] mcg, Iron 45-60 mg and calcium citrate 2307-1149 mg/day Plan: Next visit 6 month post op visit. Can go back to work on the Apr, 2021 Paul Nj MD [facility] 03-29-2021 Note HNO ID: [id number] Author: Estefany Cook APRN.MARKET REPORTER Service: Anesthesiology Author Type: Nurse Deportation Examiner Type: Anesthesia Procedure Notes Filed: 03/29/2021 10:48 AM Note Text: ANESTHESIOLOGY PROCEDURE NOTE Airway General Information Procedure Start Time/Medication Administration: 03/29/2021 10:23 AM Patient location during procedure: OR Timeout Performed Pre-procedure: timeout performed Consent Obtained: Yes Patient identity confirmed: arm band, care count team member and patient Staffing Anesthesiologist: Tiburcio Eisenberg MD MARKET REPORTER: Estefany Cook APRN.MARKET REPORTER Performed by: MARKET REPORTER Indications and Patient Condition Preoxygenated: yes Patient [...] attempts at approach: 1 SIGNATURE: Estefany Cook APRN.MARKET REPORTER PATIENT NAME: Jessica Dillard DATE: March 29, 2021 TIME: 10:47 AM CSN: [id number] [facility] 03-25-2021 Note HNO ID: [id number] Author: Wen Bill RN Service: ? Author [...] two Extra Strength Tylenol. Wen Bill RN [facility] 03-22-2021 Note Education ([facility]) JESSICA DILLARD ([id number]) 1965 F Date Time Provider Department 03/22/21 WEN BILL (MARCELA) [facility] Reason for Visit: Education Of Patient/family [904] [...] Status:Closed by WEN BILL RN on 03/25/21 [facility] 03-22-2021 Note HNO ID: [id number] Author: Paul Nj MD Service: ? 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 I have also discussed medical [...] had been delayed/postponed (more content not included)... [facility] 01-15-2021 Note HNO ID: [id number] Author: Stella Pike MD Service: ? Author [...] pain. OTHER: -08/09/2020 OV BMI/[place] MEDS: See [facility] MEDS: See [facility] Patient-reported medications: -ibuprofen, tylenol prn -has not been taking the metformin (borderline diabetes) -no h/o ME, CHF, no heart problem ? PMH: -DM2-no longer taking metformin- -Vit D3 deficiency -no ME, CAD, CHF, CVA -h/o bronchitis/ and double [...] visit, she began phentermine with Dr. An ([phone]) -presurgical testing-has completed labs; had external abd us ( 10/31/2020-DOS: 10/23/2020)-did show adrenal mass, for which she is following with Drs. Nj and Luis Alfredo - Ext 10/31/2020 CXR DOS: 10/23/2020 (Please see the scanned document in [employer] for the exact report details) - 10/31/2020-Ext EKG DOS: 10/23/2020 (Please see the scanned document in [employer] for the exact report details) convo w patient: -has managed her cholesterol with eating/nutrition -denies any h/o of: ME, CHF, or other heart problems -rec'd her [...] separately reported). Sent messages to navigation team. [facility] 01-07-2021 Note HNO ID: [id number] Author: Jesus Ramirez MD Service: ? Author [...] perspective for bariatric surgery. Jesus Ramirez MD [facility] 12-28-2020 Note HNO ID: [id number] Author: Loren Boyd MD Service: General Surgery Author Type: Resident Type: Progress Notes Filed: 12/28/2020 7:46 AM Note Text: GENERAL SURGERY PROGRESS NOTE Jessica Dillard [id number] ASSESSMENT AND PLAN 55 year old female [...] General Loren En Oliver PGY-1 General Surgery [facility] 12-27-2020 Note HNO ID: [id number] Author: Estefany Cook APRN.MARKET REPORTER Service: Anesthesiology Author Type: Nurse Deportation Examiner Type: Anesthesia Procedure Notes Filed: 12/27/2020 1:57 [...] Imaging Guidance Used: No SIGNATURE: Estefany Cook APRN.MARKET REPORTER PATIENT NAME: Jessica Dillard DATE: December 27, 2020 TIME: 1:57 PM CSN: [id number] [facility] 12-27-2020 Note HNO ID: [id number] Author: Estefany Cook APRN.MARKET REPORTER Service: Anesthesiology Author Type: Nurse Deportation Examiner Type: Anesthesia Procedure Notes Filed: 12/27/2020 1:56 [...] December 27, 2020 TIME: 1:54 PM CSN: [id number] [facility] 12-27-2020 Note HNO ID: [id number] Author: Estefany Cook APRN.CRNA Service: Anesthesiology Author Type: Nurse Deportation Examiner Type: Anesthesia Procedure Notes Filed: 12/27/2020 1:52 [...] December 27, 2020 TIME: 1:50 PM CSN: [id number] [facility] 11-30-2020 Note HNO ID: [id number] Author: Anila Silva RN Service: ? Author [...] long-chain polymer containing repeating disaccharide units of Bn-vdjxruilfbt-D-acetylglucosamin e. [facility] 11-23-2020 Note HNO ID: [id number] Author: Anila Silva RN Service: ? Author [...] two Extra Strength Tylenol. Anila Silva RN [facility] 11-23-2020 Note Education ([facility]) JESSICA DILLARD ([id number]) 1965 F Date Time Provider Department 11/23/20 ANILA SILVA Reason for Visit: Patient Education [91] Progress Notes: Anila Silva RN 11/23/2020 4:42 PM Signed [facility] COORDINATION SURGERY PRE-OP EDUCATION NOTE [...] 10/19/2020 Reviewed by: (more content not included)... [facility] 11-22-2020 Note HNO ID: [id number] Author: Anila Silva RN Service: ? Author Type: Registered Nurse Type: Progress Notes Filed: 11/23/2020 8:30 AM Note Text: Confirmed 16 for right adrenalectomy [facility] 11-19-2020 Note HNO ID: [id number] Author: Jesus Ramirez MD Service: ? Author Type: Physician Type: Progress Notes Filed: 11/19/2020 3:11 PM Note Text: VIRTUAL VISIT NEW PATIENT This is a virtual visit using NakedRoom video visit. It required patient-provider interaction for [...] requested a second read of this by [facility] radiology. This describes 4.0 x 4.7 cm [...] which included preparing to see the patient, orqm-mi-vkpi patient care, completing clinical documentation, obtaining and/or reviewing separately obtained history, counseling and educating the patient/family/caregiver, communicating with other HCPs (not separately reported), independently interpreting results (not separately re (more content not included)... [facility] 11-15-2020 Note HNO ID: [id number] Author: Beba Avila RD Service: ? Author Type: Registered Dietitian Type: Progress Notes Filed: 11/15/2020 3:29 PM Note Text: [facility] Nutrition Therapy: Virtual Consult ? Re [...] session:--not met Link to book as discussed: https://my.[facility].org/-/ scassets/files/org/bariatric/guid es/bmigui debook-september2019.ashx?la=en ? 2.? Do not [...] --met 6. Call the scheduling line at [phone] to schedule a May nutrition visit. As discussed, all follow-up appointments with the dietitian should be in a group class setting. --not met 7. You can have your weight obtained at a doctors visit and fax into the office for your file as we discussed. The fax number is: [phone].--not met ? Pre-op goal weight: 262 pounds [...] From nutrition nimisha (more content not included)... [facility] 11-13-2020 Note HNO ID: [id number] Author: Anila Silva RN Service: ? Author [...] Silva RN November 13, 2020 2:07 PM [facility] 11-01-2020 Note HNO ID: [id number] Author: Anila Silva RN Service: ? Author Type: Registered Nurse Type: Progress Notes Filed: 11/01/2020 12:37 PM Note Text: Spoke to pt - please fax CT order and lab order to her PCP- she will get it done locally- knoew she has to get the images to us prior to appt with Jeannedonnell [facility] 10-30-2020 Note HNO ID: [id number] Author: Saima Del Rosario, PhD Service: ? Author Type: Psychologist Type: Progress Notes Filed: 10/30/2020 11:03 AM Note Text: Consulted w/ Dr. Nj who indicated that the planned procedure is the sleeve. Thus, with one negative nicotine screen, she has completed all psychology requirements. Clearance letter submitted today. Saima Del Rosario, Ph.D. Psychologist [facility] 10-29-2020 Note HNO ID: [id number] Author: Saima Del Rosario, PhD Service: ? Author Type: Psychologist Type: Progress Notes Filed: 10/29/2020 10:22 AM Note Text: Received lab results from [facility] via fax (negative for nicotine on [...] faxed to ATTN: Dr. Del Rosario at [phone] or e-mail to ? Reply to Dr. Del Rosario's NakedRoom message with an update about when/where screens are done Saima Del Rosario, Ph.D. Psychologist [facility] 10-25-2020 Note HNO ID: [id number] Author: Paul Nj MD Service: ? Author [...] Refer to Dr. Luis Alfredo Nj MD [facility] 10-17-2020 Note HNO ID: [id number] Author: Saima Del Rosario, PhD Service: ? Author Type: Psychologist Type: Progress Notes Filed: 10/17/2020 2:48 PM Note Text: [facility] Bariatric Behavioral Services Progress Note October 17, 2020 COST CENTER: [facility] BILLING CODE: Carin CPT Code: 9114517 Virtual Psychotherapy 16-37 minutes Time initiated session: 2:13 PM to 2:46 PM Date of First Session: 07/30/20 (initial evaluation) Session #: 3 Due to the [facility] and [facility] and the need for ongoing mental health services, the following visit was completed virtually to reduce the risk of COVID-19 exposure. Consent related to virtual visits was previously provided verbally after information was sent via NakedRoom or read to patient if 2Duchehart not available. Collateral Parties Present: none. Physical location at time of appointment: Client's house ([facility] [facility], [facility]) Subjective: The patient has been working on [...] her first lab on either Thursday (at [facility]) or at an outside facility ([place]) on Thursday. Her EGD will determine which [...] forward with surgery. ? Go to any [facility] lab and submit your first nicotine [...] faxed to ATTN: Dr. Del Rosario at [phone] or e-mail to [email or web address] ? Reply to Dr. Del Rosario's MyChart message with an update about where you [...] how to recon (more content not included)... [facility] 09-07-2020 Note HNO ID: [id number] Author: Saima Del Rosario, PhD Service: ? Author Type: Psychologist Type: Progress Notes Filed: 09/07/2020 4:21 PM Note Text: [facility] Bariatric Behavioral Services Progress Note September 07, 2020 COST CENTER: [facility] BILLING CODE: Carin CPT Code: 4771310 Virtual Psychotherapy 38-52 minutes Time initiated session: 2:10 PM to 3:00 PM Date of First Session: 07/30/20 (initial evaluation) Session #: 2 Due to the federal and [facility] of emergency and the need for ongoing mental health services, the following visit was completed virtually to reduce the risk of COVID-19 exposure. Consent related to virtual visits was previously provided verbally after information was sent via NakedRoom or read to patient if NakedRoom not available. Collateral Parties Present: none. Location at time of appointment: Parked car outside of client's house ([place], [facility]) Subjective: The patient has been working on [...] at least 1 month, go to any [facility] lab and submit your first nicotine [...] faxed to ATTN: Dr. Del Rosario at [phone] *Follow up w/ Dr. Del Rosario 10/17 at 2:15 (virtual) Reminder to schedule a follow-up appointment with nutrition as well (Appointment scheduling number: [phone]). 2) The patient may benefit from the following during the surgery process: *CPAP adherence as indicated *implement exercise program such as warm water aerobics, walking, or exercise that ca (more content not included)... [facility] 08-24-2020 Note HNO ID: [id number] Author: Paul Nj MD Service: ? Author [...] EGD: Yes. Her EGD in 2019 at [facility] noted grade 2 esophagitis and healed [...] today and will also send me a NakedRoom message with this the dose of the [...] goal weight prior to liquid fast: Per chemistry specialist lbs Surgically Cleared with completion of the [...] record and US mail, Paul Nj MD [facility] 08-09-2020 Note HNO ID: [id number] Author: Stella Pike MD Service: ? Author [...] with her 2.5 y/o grandson Diet:see recent Director Of Managed Services visit Physical activity: Not a formal routine, but trying to get into something. Just got an injection in her hip. 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 OTHER: -08/02/2020-OV Nutrition/Jing -07/30/2020-OV Goodpaster -08/20/2018 OV BMI/Gl[place]y MEDS: See Epic Patient-reported medications: -ibuprofen, tylenol prn -has not been taking the metformin (borderline diabetes) -no h/o ME, CHF, no heart problem PMH: -DM2-on metformin- -Vit D3 deficiency -almost finished with the Lamisil by next week -no ME, CAD, CHF, CVA -h/o bronchitis/ and double [...] locally and results faxed over. -Dr. An-office [phone] 2)NEREIDA-she had testing done, and it was abnormal. She had the testing done with [facility] (ordered by Dr. An) -she got on cpap and is using the machine-will request the record Stella iPke MD I spent a total of about [...] sent -elevated cholesterol-adv to f/u c pcp [facility] 08-02-2020 Note HNO ID: [id number] Author: Deborah Ch Service: ? Author Type: Registered Dietitian Type: Progress Notes Filed: 08/03/2020 5:59 AM Note Text: [facility] Nutrition Therapy: Virtual Consult ? Initial [...] visit this day. Initial weight: 277 lbs. [place] body weight is 125 lbs. Excess body weight is 152 lbs. Goal weight pre-op is 262 lbs. Protein needs are estimated at 68-82 gm (Based on 1.2 - 1.5 g protein/kg IBW) Patient meets the National Institutes of Health guidelines for weight loss surgery and has [employer] therefore is required to complete 0 [...] next session: Link to book as discussed: https://my.[facility].org/-/ scassets/files/org/bariatric/guid es/bmigui debook-september2019.ashx?la=en 2. Do not skip meals - use protein shake 1x per day to replace any sk (more content not included)... [facility] 07-30-2020 Note HNO ID: [id number] Author: Saima (Phd) Carin Service: ? Author Type: Psychologist Type: Progress Notes Filed: 07/30/2020 12:07 PM Note Text: [facility] BARIATRIC SURGERY BEHAVIORAL HEALTH EVALUATION DATE OF SERVICE: July 30, 2020 TIME OF SERVICE: 10:55-12:05pm COST CENTER: [facility] CPT CODE: [id number] Virtual Psych Diagnostic Eval BILLING CODE: [facility] SESSION #: 1 Due to the [facility] and [facility] and the need for ongoing mental health services, the following visit was completed virtually to reduce the risk of COVID-19 exposure. Consent to virtual visits was provided verbally after information was sent via [employer] or read to patient if MyChart not available. Likewise, patient provided verbal consent to information outlined on The Informed Consent for Psychological Evaluation AND Care Form, including the behavioral health care insurance benefits, fees for service, emergency procedures, and the limits of confidentiality. This consent form was sent to 2Duchehart or read to patient if MyChart was unavailable. Location at time of appointment: [address] [place] [address] in a parked car outside of her [...] managements: cooking for her family during the COVID- pandemic, inactivity due to pain, and large [...] disorders in t (more content not included)... [facility] Evaluation note Diagnosis Unilateral primary osteoarthritis, right hip documented in this encounter [facility] Discharge instructions* Attachments The following attachments cannot be sent through Care Everywhere. * Hip Replacement: Total: General Info (American) * Fall Prevention (American) [facility]* Auth/Cert Specialty Diagnoses / Procedures Referred By Renate molina Referred To Contact Diagnoses Unilateral primary osteoarthritis, right hip M16.11 Procedures ME ARTHROPLASTY ACETABULAR AND PROXIMAL FEMORAL PROSTHETIC REPLACEMENT (TOTAL HIP ARTHROPLASTY) WITH OR WITHOUT AUTOGRAFT OR ALLOGRAFT ME ARTHROPLASTY ACETABULAR AND PROXIMAL FEMORAL PROSTHETIC REPLACEMENT (TOTAL HIP ARTHROPLASTY) WITH OR WITHOUT AUTOGRAFT OR ALLOGRAFT Right total hip arthoplasty Wyatt Houston MD [address] [place] [address] Referral ID Status Reason Start Date Expiration Date Visits Re quested Visits Authorized [id number] 07/01/2021 1 1 [facility] Summary Purpose Family History No Family History Records FoundNo Family History Records FoundNo Family History Records FoundNo Family History Records FoundNo Family History Records FoundNo Family History Records FoundNo Family History Records Found Advance Directives No Advanced Directives Records FoundDocuments on File Type Date Recorded Patient Aged Or Disabled 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 Advance Directive(s) 03/13/2021 11:32 AM Advance Directive(s) 12/03/2020 2:46 PM Advance Directive(s) 10/05/2020 8:41 AM Documents on File Type Date Recorded Patient Aged Or Disabled 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 Power of Appeals Referee Procedure Findings Note Patient: JESSICA DILLARD MRN: [...] content) DATE CREATED AUTHOR 02/03/2019 [facility] DATE CREATED AUTHOR AUTHOR'S ORGANIZ ATION 07/08/2020 [facility] DATE CREATED AUTHOR AUTHOR'S ORGANIZ ATION 03/26/2021 [facility] DATE CREATED AUTHOR AUTHOR'S ORGANIZ ATION 04/11/2021 [facility] DATE CREATED AUTHOR AUTHOR'S ORGANIZ ATION 05/22/2021 [facility] DATE CREATED AUTHOR AUTHOR'S ORGANIZ ATION 08/29/2021 [facility] DATE CREATED AUTHOR AUTHOR'S ORGANIZ ATION 07/26/2022 [facility] Comments (unrecognize d section and content) In the event this informatio n is protected by the Federal Confidentiality of Alcohol and Drug Abuse Patient Records regulations: The Federal rules restrict any use of the information to criminally investigate or prosecute any alcohol or drug abuse patient.[facility] Reason for Visit (unrecogniz ed section and content) Reason Onset Date Comments Refill Request 07/14/2021 Care Teams (unrecognized sec tion and content) Sales Product Manager Relationship Specialty Start Date End Date Yaneth An MD [address], [place] [id number] [phone] PCP - General Family Practice 10/05/20 Sales Product Manager Relationship Specialty Start Date End Date Yaneth An MD [address] [place] [address] PCP - General Family Medicine 08/05/21 Ordered [...] Indication: Prophylaxis-Surgical 1314 (Given - Provid er: Silvestre Onofre [facility]) ceFAZolin (ANCEF) 2 gram/20 mL IV syringe [...] Recovery (only), 2nd Line Option: -ONLY give ME if patient is unable to take orally [...] Recovery (only)
2nd Line Option: -ONLY give ME if patient is unable to take orally [...] BE BASED ON THE PRIMARY CLINICAL RECORDS. [employer] [facility]. provides no warranty or guarantee of the accuracy or completeness of information in this document.
== END 2023-08-27 07:50 | disposition home or self-care (01) ==
LOC: PM 07:49
PROVIDERS: PCP Family Medicine; Visit Provider Nurse Practitioner
DX: M17.11 Unilateral primary osteoarthritis, right knee (principal); M47.816 Spondylosis without myelopathy or radiculopathy, lumbar region; Z79.891 Long term (current) use of opiate analgesic
CPT/HCPCS: G0463

== ENCOUNTER 2023-09-29 08:06 | Day surgery (SDC) | payer MEDICAID, SELFPAY ==
[2023-09-29 08:33] LABS: Glucometer 112 mg/dL (74-106)
[2023-09-29 08:36] VITALS: BP 134/84; PULSE 81; TEMP 36.1; O2SAT 96
[2023-09-29 08:59] VITALS: BP 141/68; PULSE 74; O2SAT 97
[2023-09-29 09:03] VITALS: BP 143/67; PULSE 76; O2SAT 97
[2023-09-29] MEDS: BUPIVACAINE HCL 0.25% PF 25 MG/10 ML VIAL 4 ML INJ (09:18)
[2023-09-29] MEDS: METHYLPREDNISOLONE ACETATE 40 MG/ML VIAL INJ (09:19)
[2023-09-29] MEDS: LIDOCAINE HCL 2% 400 MG/20 ML MDV 11 ML INJ (09:19)
--- NOTE | 2023-09-29 09:27 | W.PM.PROCNOT ---
Date of procedure: 09/29/23 Pre-op diagnosis: Lumbar spondylosis Post-op diagnosis: same as pre-op Procedure: Right Lumbar 2/3, 4/5 Radiofrequency ablation Under fluoroscopic guidance Rhizotomy was created using radio frequency ablation at 80?C for 90 seconds 1 to 2 lesions created at each site. Post lesioning injection of 2 mL each of 0.25% Marcaine and 2% lidocaine with Depo-Medrol 40mg. 0.5 to 1 mL injected at each site IV in place no If Intravenous fluids: NS at KVO Anesthesia local 2% lidocaine for Anesthesia Other: local Timeout process compliant After informed consent obtained.Patient brought to the procedure room placed in the prone position skin overlying the area was prepped and draped in a sterile fashion using betadine. 25 gauge needle was used to create a skin wheal over each of the targeted areas utilizing 2% lidocaine. A rhizotomy needle with a 10 mm active tip was inserted over each of the anesthetized areas and directed towards each of the medial branches accomplished under fluoroscopic guidance. after encountering the same we had positive sensory stimulation, negative motor stimulation was noted. lesions were then created. Post lesioning, steroid solution was injected needles removed. Patient was transferred to recovery room in stable condition to be discharged home after meeting criteria. Anesthesia: Local Surgeon: Geoff Romero Condition: stable
== END 2023-09-29 09:51 | disposition home or self-care (01) ==
LOC: SURGOUT 08:09
PROVIDERS: PCP Family Medicine; Visit Provider Anesthesiology Pain Medicine
DX: M47.816 Spondylosis without myelopathy or radiculopathy, lumbar region (principal)
CPT/HCPCS: 36415; 64635; 64636; 82948; J0665; J1010

== ENCOUNTER 2024-01-26 08:04 | Day surgery (SDC) | payer MEDICAID, SELFPAY ==
--- OUTSIDE RECORDS SUMMARY | 2024-01-26 08:08 | XMS_ITS | CCD ---
Author Organization [facility] Care Team Providers Care Active Directory Specialist Name Role Phone Yaneth Garcia MD Primary Care Provider [phone] WYATT TAPIA Admitting Unavailable WYATT TAPIA Attending Unavailable YANETH GARCIA Primary Care Unavailable HOY ., DR WOLFE [...] ., NARENDRANATH Attending Pauly vailable LAKSHMIPATHY ., NARENDRAÚLATH Admitting [...] ., NARENDRANATH Attending Pauly vailable LAKSHMIPATHY ., NARENDRAÚLATH Admitting Pauly vailable HOY ., DR WOLFE Primary Care Unavailable HOY ., DR WOLFE Primary Care Unavailable WILHELM ., DR KAITLIN Jang Attending Unavailable WILHELM ., DR KAITLIN Jang Admitting Unavailable PAUL ODONNELL Referring Unavailable YANETH GARCIA Primary Care Unavailable ELIJAH MARROQUIN Attending Unavailable Allergies Allergy Classification Reported Allergen(s) Allergy Type Date of Onset Reaction(s) Facility (4 sources) Ciprofloxacin; Translations: [CIPROFLOXACIN] Drug Allergy 10-19-2020 Unknown [facility] (2 sources) Ciprofloxacin Drug Allergy 08-17-2013 [facility] [place] Repository Medications Current Medications Medication Drug Class(es) [...] Comment on above: Take 1 capsule by [facility] twice daily. Completed/Discontinued Medications Medication [...] tablet by mouth three times daily HYDROcodone-acetaminophen (Jasper) 5-325 mg per tablet Take 1 tablet [...] Classification Problem Date Documented Da te Episodic/Chronic Administrative/social admission (1 source) Dietary counseling and surveillance; Translations: [Dietary counseling and surveillance] Onset: 05-10-2021 Episodic Diabetes mellitus without complication (1 source) Increased [...] ATROPHY NEC UNS SITE] Onset: 12-20-2021 Episodic Other gastrointestinal disorders (1 source) Bariatric surgery status; Translations: [S/P laparoscopic sleeve gastrectomy] Onset: 05-10-2021 Episodic Results Test Name Value Interpretation Reference Range Facility Patient Letter FTon 2023 Patient Letter [facility] Patient Letter [facility] October 27, 2023 JESSICA CARDOSO [address] [place] [address] : 1965 Dear Jessica, This is a reminder that you are due for an appointment with [facility]. Please contact our office at [phone] to schedule your 5 year colon recall Thank you, [facility] [phone] Normal [facility] Covid-19 PCR (CVDTBH)on 03-13 SARS-CoV-2 (COVID-19) RNA HELLEN+probe Ql (Unsp spec) Not detected Normal NOT DETECTED [facility] [place] Comment on above: Result Comment: When diagnostic [...] for this test is supported by the [place] Efficiency Course Director of Health and Human Service's declaration that [...] longer be used). Performed By: #### C VDTBH ####[facility] [place] [address] [place] [id number]. Bakari Isidro INFLUENZA A AND B AGon 03-28 INFLUANEGH SEE BELOW Normal [facility] Comment on above: Result Comment: Nega tive for Flu A protein angiten. Infection due to Flu A cannot be ruled out. Flu A angiten in the sample may be below the detection limit of the test. Performed By: #### I NFLUAB ####[facility] [place] [address] [place] [id number] A Isidro INFLUBNEGH SEE BELOW Normal [facility] Comment on above: Result Comment: Nega tive for Flu B protein antigen. Infection due to Flu B cannot be ruled out. Flu B antigen in the sample may be below the detection limit of the test. Performed By: #### I NFLUAB ####[facility] [place] [address] [place], [place] [address]Pp. Bakari Isidro INFLUENZA A AG Negative Normal NEGATIVE SEE COMMENT [facility] [place] Comment on above: Performed By: #### I NFLUAB ####[facility] [place] [address] [place], [place] [address]Ka. Bakari Isidro INFLUENZA B AG Negative Normal NEGATIVE SEE COMMENT [facility] [place] Comment on above: Performed By: #### I NFLUAB ####[facility] [place] [address] [place] [address]Fn. Bakari Isidro INTERNAL CONTROLS Within Normal Limits Normal Wi thin Normal Limits [facility] [place] Comment on above: Performed By: #### I NFLUAB ####[facility] [place] [address] [place] [address]Lj. Bakari Isidro Covid-19 PCR (CVDTB)on SARS-CoV-2 (COVID-19) RNA HELLEN+probe Ql (Unsp spec) Not detected Normal NOT DETECTED [facility] [place] Comment on above: Result Comment: This test is not yet approved or cleared by the [place] FDA. When there are no FDA-approved or cleared tests available, and other criteria are met, FDA can make tests available under an emergency access mechanism called an Emergency Use Authorization (EUA). The EUA for this test is supported by the [place] Efficiency Course Director of Health and Human Service's (HHS's) declaration [...] with SARS-CoV-2. Performed By: #### C VDTBH ####[facility] [place] [address] [place] [address]Yl. Bakari Isidro Covid-19 PCR (CVDTB)on 01-12 SARS-CoV-2 (COVID-19) RNA HELLEN+probe Ql (Unsp spec) Not detected Normal NOT DETECTED [facility] [place] Comment on above: Result Comment: This test is not yet approved or cleared by the [place] FDA. When there are no FDA-approved or cleared tests available, and other criteria are met, FDA can make tests available under an emergency access mechanism called an Emergency Use Authorization (EUA). The EUA for this test is supported by the [place] Efficiency Course Director of Health and Human Service's (HHS's) declaration [...] with SARS-CoV-2. Performed By: #### C VDTB ####[facility] [place] [address] [place], [place] [address]Vx. Bakari Isidro VIT D 25-[place] LABCORPon 2021 Vitamin D, 25-Hydroxy 60.1 ng/mL Normal 30.0-100.0 [facility] [place] Comment on above: Result Comment: Traci min D deficiency has been defined by the [place] of Medicine and an Endocrine Society practice guideline as a level of serum 25-OH vitamin D less than 20 ng/mL (1,2). The Endocrine Society went on to further define vitamin D insufficiency as a level between 21 and 29 ng/mL (2). 1. IOM ([place] of Medicine). 2010. Dietary reference intakes for calcium and D. Garcia [place]: The National Academies Press. 2. Qi WILKINSON, Celeste LUIS, Debora CHOWDHURY, et al. Evaluation, treatment, and prevention of vitamin D deficiency: an Endocrine Society clinical practice guideline. JCEM. 2010; 96(7):1911-30. Performed By: #### V ITADLC #### [facility] [place] [facility] [address] [place], [place] [address] Dr. Bakari Isidro CBC AUTO DIFFon 11-19-2021 BASO # 0.0 103/ul Normal 0.0-0.1 [facility] Comment on above: Performed By: #### C BC ####[facility] [place] [address] [place] [address]DrJuan A Isidro Basophils/100 WBC (Bld) 0.5 % Normal 0.2-2.0 [facility] Comment on above: Performed By: #### C BC ####[facility] [place] [address] [place] [address]Dr. Bakari Isidro EO # 0.1 103/ul Normal 0.0-0.7 [facility] Comment on above: Performed By: #### C BC ####[facility] [place] [address] [place] [address]Dr. Bakari Isidro Eosinophils/100 WBC (Bld) 1.4 % Normal 0.9-7.0 [facility] Comment on above: Performed By: #### C BC ####[facility] [place] [address] [place], [place] [address]Dr. Bakari Isidro Erythrocyte distribution width (RBC) [Ratio] 12.8 % Normal 11.0-15.0 [facility] Comment on above: Performed By: #### C BC ####[facility] [place] [address] [place], [place] [address]Dr. Bakari Isidro Hematocrit (Bld) [Volume fraction] 43.2 % Normal 36.0-48.0 [facility] [place] Comment on above: Performed By: #### C BC ####[facility] [place] [address] [place], [place] [address]DrJuan A Isidro Hemoglobin (Bld) [Mass/Vol] 13.4 g/dL Normal 12.0-16.0 [facility] [place] Comment on above: Performed By: #### C BC ####[facility] [place] [address] [place], [place] [address]Dr. Bakari Isidro IG # 0.05 10e3/ul Critically high 0.00-0.03 [facility] Comment on above: Performed By: #### C BC ####[facility] [place] [address] [place] [address]DrJuan A Bakari Isidro IG % 0.6 % Critically high 0.0-0.5 [facility] Comment on above: Performed By: #### C BC ####[facility] [place] [address] [place] [address]DrJuan A Bakari Dwaine LYMPH # 1.6 103/ul Normal 1.2-3.8 [facility] Comment on above: Performed By: #### C BC ####[facility] [place] [address] [place] [address]DrJuan A Bakari Dwaine Lymphocytes/100 WBC (Bld) 19.4 % Critically low 20.5-60.0 [facility] Comment on above: Performed By: #### C BC ####[facility] [place] [address] [place], [place] [address]Dr. Ravenmaxx Isidro MANUAL DIFF REQ NO Normal [facility] Comment on above: Performed By: #### C BC ####[facility] [place] [address] [place] [address]Dr. Bakari Dwaine MCH (RBC) [Entitic mass] 27.5 pg Normal 26.7-34.0 [facility] Comment on above: Performed By: #### C BC ####[facility] [place] [address] [place] [address]Dr. Bakari Dwaine MCHC (RBC) [Mass/Vol] 31.0 g/dL Normal 29.9-35.2 [facility] Comment on above: Performed By: #### C BC ####[facility] [place] [address] [place] [address]DrJuan A Bakari Dwaine MCV (RBC) [Entitic vol] 88.5 fL Normal 81.0-99.0 [facility] Comment on above: Performed By: #### C BC ####[facility] [place] [address] [place], [place] [address]DrJuan A Ravenmaxx Isidro MONO # 0.6 103/ul Normal 0.3-0.8 [facility] Comment on above: Performed By: #### C BC ####[facility] [place] [address] [place] [address]Dr. Bakari Isidro Monocytes/100 WBC (Bld) 7.2 % Normal 1.7-12.0 [facility] [place] Comment on above: Performed By: #### C BC ####[facility] [place] [address] [place] [address]Dr. Bakari Isidro NEUT # 6.0 103/ul Normal 1.4-6.5 [facility] Comment on above: Performed By: #### C BC ####[facility] [place] [address] [place] [address]Dr. Bakari Isidro Neutrophils/100 WBC (Bld) 70.9 % Normal 43.0-75.0 [facility] [place] Comment on above: Performed By: #### C BC ####[facility] [place] [address] [place], [place] [address]Dr. Bakari Isidro Platelet mean volume (Bld) [Entitic vol] 9.5 fL Normal 9.5-13.5 [facility] [place] Comment on above: Performed By: #### C BC ####[facility] [place] [address] [place], [place] [address]Dr. Bakari Isidro PLT 236 103/ul Normal 150-450 [facility] [place] Comment on above: Performed By: #### C BC ####[facility] [place] [address] [place] [address]Dr. Bakari Isidro RBC 4.88 106/ul Normal 4.20-5.40 [facility] [place] Comment on above: Performed By: #### C BC ####[facility] [place] [address] [place] [id number]. Bakari Isidro WBC 8.5 103/ul Normal 4.0-11.0 [facility] [place] Comment on above: Performed By: #### C BC ####[facility] [place] [address] [place] [id number]. Bakari Dwaine FREE THYROXINE INDEX T7on FTI 2.27 Normal 1.30-4.50 [facility] Comment on above: Performed By: #### T SH, LIPID, CMP, T7 #### [facility] [place] [facility] [address] [place] [address] [address] Bakari Isidro T3U 32.0 % Normal 30.0-39.0 [facility] Comment on above: Performed By: #### T SH, LIPID, CMP, T7 #### [facility] [place] [facility] [address] [place] [address] [address] Bakari Isidro T4 [Mass/Vol] 7.10 ug/dL Normal 4.80-13.90 [facility] [place] Comment on above: Performed By: #### T SH, LIPID, CMP, T7 #### [facility] [place] [facility] [address] [place] [address] [address] Bakari Isidro GLYCOHEMOGLOBIN A1Con 2021 ADA RECOMMENDATION SEE BELOW Normal [facility] Comment on above: Result Comment: ADA RECOMMENDED LIMIT 4.0 - 6.0 ADA THERAPEUTIC TARGET < 7.0 ACTION SUGGESTED > 7.0 Performed By: #### A 1C #### [facility] [place] [facility] [address] [place] [address] [address] Bakari Isidro Glucose [Mass/Vol] 105 mg/dL Normal [facility] Comment on above: Performed By: #### A 1C #### [facility] [place] [facility] [address] [place] [address] [address] Bakari Isidro HbA1c (Bld) [Mass fraction] 5.3 % Normal 4.5-6.2 [facility] Comment on above: Performed By: #### A 1C #### [facility] [place] [facility] [address] [place] [address] [address] Bakari Isidro IRONon 11-19-2021 Iron [Mass/Vol] 49.0 ug/dL Critically low 50.0-170.0 [facility] Comment on above: Performed By: #### I JOHAN B12FOL ####[facility] [place] [address] [place], [place] [address]KgDr. Bakari Isidro LIPID PROFILEon 11-19-2021 CHOL-HDL RATIO NORM SEE BELOW Normal [facility] Comment on above: Result Comment: 3.3 - 4.4 LOW RISK 4.4 - 7.1 AVERAGE RISK 7.1 - 11.0 MODERATE RISK >11.0 HIGH RISK Performed By: #### T SH, LIPID, CMP, T7 #### [facility] [place] [facility] [address] [place] [address] [address] Bakari Isidro Cholesterol [Mass/Vol] 219 mg/dL Critically high <=200 [facility] Comment on above: Performed By: #### T SH, LIPID, CMP, T7 #### [facility] [place] [facility] [address] [place] [address] [address] Bakari Isidro Cholesterol in HDL [Mass/Vol] 43 mg/dL Normal 40-60 [facility] Comment on above: Performed By: #### T SH, LIPID, CMP, T7 #### [facility] [place] [facility] [address] [place] [address] Dr. Bakari Isidro Cholesterol in LDL [Mass/Vol] 147.0 mg/dL Normal [facility] Comment on above: Performed By: #### T SH, LIPID, CMP, T7 #### [facility] [place] [facility] [address] [place] [address] Dr. Bakari Isidro Cholesterol.total /Cholesterol in HDL [Mass ratio] 5.1 {ratio} Normal [facility] Comment on above: Performed By: #### T SH, LIPID, CMP, T7 #### [facility] [place] [facility] [address] [place] [address] Dr. Bakari Isidro HDL NORMAL > or = 60 mg/dl - LO W CARDIOVASCULAR RISK <40 mg/dl - HIGH CARDIOVASCULAR RISK Normal [facility] Comment on above: Performed By: #### T SH, LIPID, CMP, T7 #### [facility] [place] [facility] [address] [place] [address] Dr. Bakari Isidro LDL CALC NORMAL SEE BELOW Normal [facility] Comment on above: Result Comment: <100 mg/dl OPTIMAL 100 - 129 mg/dl NEAR OR ABOVE OPTIMAL 130 - 159 mg/dl BORDERLINE HIGH 160 - 189 mg/dl HIGH >190 mg/dl VERY HIGH Performed By: #### T SH, LIPID, CMP, T7 #### [facility] [place] [facility] [address] [place] [address] Dr. Bakari Isidro Triglyceride [Mass/Vol] 145 mg/dL Normal <=150 [facility] [place] Comment on above: Performed By: #### T SH, LIPID, CMP, T7 #### [facility] [place] [facility] [address] [place] [address] [address] Bakari Isidro VLDL CALC 29.0 mg/dL Normal [facility] Comment on above: Performed By: #### T SH, LIPID, CMP, T7 #### [facility] [place] [facility] [address] [place] [address] [address] Bakari Isidro PROF 14(COMP METB)on 022 Albumin [Mass/Vol] 3.6 g/dL Normal 3.4-5.0 [facility] Comment on above: Performed By: #### T SH, LIPID, CMP, T7 #### [facility] [place] [facility] [address] [place] [address] Dr. Bakari Isidro Albumin/Globulin [Mass ratio] 1.1 {ratio} Normal [facility] Comment on above: Performed By: #### T SH, LIPID, CMP, T7 #### [facility] [place] [facility] [address] [place] [address] [address] Bakari Isidro ALP [Catalytic activity/Vol] 129 U/L Critically high 46-116 [facility] Comment on above: Performed By: #### T SH, LIPID, CMP, T7 #### [facility] [place] [facility] [address] [place] [address] [address] Bakari Isidro ALT [Catalytic activity/Vol] 24 U/L Normal 14-59 [facility] [place] Comment on above: Performed By: #### T SH, LIPID, CMP, T7 #### [facility] [place] [facility] [address] [address] [address] Bakari Isidro Anion gap [Moles/Vol] 15.7 mmol/L Normal [facility] Comment on above: Performed By: #### T SH, LIPID, CMP, T7 #### [facility] [place] [facility] [address] [address] [address] Bakari Isidro AST [Catalytic activity/Vol] 13 U/L Critically low 15-37 [facility] Comment on above: Performed By: #### T SH, LIPID, CMP, T7 #### [facility] [place] [facility] [address] [address] [address] Bakari Isidro Bilirubin [Mass/Vol] 0.3 mg/dL Normal 0.2-1.0 [facility] [place] Comment on above: Performed By: #### T SH, LIPID, CMP, T7 #### [facility] [place] [facility] [address] [address] [address] Bakari Isidro Calcium [Mass/Vol] 9.0 mg/dL Normal 8.5-10.1 [facility] [place] Comment on above: Performed By: #### T SH, LIPID, CMP, T7 #### [facility] [place] [facility] [address] [address] [address] Bakari Isidro Chloride [Moles/Vol] 105 mmol/L Normal 98-107 [facility] [place] Comment on above: Performed By: #### T SH, LIPID, CMP, T7 #### [facility] [place] [facility] [address] [place] [address] Dr. Bakari Isidro CO2 [Moles/Vol] 24.0 mmol/L Normal 21.0-32.0 [facility] Comment on above: Performed By: #### T SH, LIPID, CMP, T7 #### [facility] [place] [facility] [address] [address] [address] Bakari Isidro Creatinine [Mass/Vol] 0.55 mg/dL Normal 0.55-1.02 [facility] Comment on above: Performed By: #### T SH, LIPID, CMP, T7 #### [facility] [place] [facility] [address] [place] [address] [address] Bakari Isidro EGFR-AF GERMAN >60 Normal >=60 [facility] Comment on above: Performed By: #### T SH, LIPID, CMP, T7 #### [facility] [place] [facility] [address] [place] [address] [address] Bakari Isidro EGFR-NON AF GERMAN >60 Normal >=60 [facility] [place] Comment on above: Performed By: #### T SH, LIPID, CMP, T7 #### [facility] [place] [facility] [address] [place] [address] [address] Bakari Isidro Globulin (S) [Mass/Vol] 3.2 g/dL Normal [facility] [place] Comment on above: Performed By: #### T SH, LIPID, CMP, T7 #### [facility] [place] [facility] [address] [place] [address] [address] Bakari Isidro Glucose [Mass/Vol] 99 mg/dL Normal 74-106 [facility] [place] Comment on above: Performed By: #### T SH, LIPID, CMP, T7 #### [facility] [place] [facility] [address] [place] [address] [address] Bakari Isidro Potassium [Moles/Vol] 4.7 mmol/L Normal 3.5-5.1 [facility] [place] Comment on above: Performed By: #### T SH, LIPID, CMP, T7 #### [facility] [place] [facility] [address] [place] [address] Dr. Bakari Isidro Protein [Mass/Vol] 6.8 g/dL Normal 6.4-8.2 [facility] [place] Comment on above: Performed By: #### T SH, LIPID, CMP, T7 #### [facility] [place] [facility] [address] [place] [address] [address] Bakari Isidro Sodium [Moles/Vol] 140 mmol/L Normal 136-145 [facility] [place] Comment on above: Performed By: #### T SH, LIPID, CMP, T7 #### [facility] [place] [facility] [address] [place] [address] Dr. Bakari Isidro Urea nitrogen [Mass/Vol] 17.0 mg/dL Normal 7.0-18.0 [facility] Comment on above: Performed By: #### T SH, LIPID, CMP, T7 #### [facility] [place] [facility] [address] [place] [address] Dr. Bakari Isidro Urea nitrogen/Creatini ne [Mass ratio] 30.9 mg/mg Normal [facility] [place] Comment on above: Performed By: #### T SH, LIPID, CMP, T7 #### [facility] [place] [facility] [address] [place] [address] Dr. Bakari Isidro TSHon 11-19-2021 TSH 0.483 uIU/mL Normal 0.358-3.740 [facility] Comment on above: Performed By: #### T SH, LIPID, CMP, T7 #### [facility] [place] [facility] [address] [place], [place] [address] Dr. Bakari Isidro VIT B12 AND FOLATEon 022 Cobalamin (Vitamin B12) [Mass/Vol] 1350.0 pg/mL Critically high 193.0-986.0 [facility] Comment on above: Performed By: #### I JOHAN, B12FOL ####[facility] [place] [address] [place], [place] [address]XyDr. Bakari Isidro FOLATE 23.50 ng/mL Normal 8.60-58.90 [facility] Comment on above: Performed By: #### I JOHAN B12FOL ####[facility] [place] [address] [place], [place] [address]FiDr. Bakari Isidro Glucose Auto test strip (Bld ) [Mass/Vol]on 08-28-2021 Glucose [Mass/Vol] 85 mg/dL Normal 70-99 [facility] Comment on above: Performed By: #### 2 340-8 #### [facility] [address] [place] [address] Glucose [Mass/Vol] 85 mg/dL 70 - 99 mg/dL [facility] Interpretation and review of laboratory results Normal [facility] Glucose [Mass/Vol] 85 mg/dL Normal 70-99 [facility] Comment on above: Performed By: #### 2 340-8 #### [facility] [address] [place] [address] Glucose [Mass/Vol] 85 mg/dL 70 - 99 mg/dL [facility] Interpretation and review of laboratory results Normal [facility] [employer] XR PELVIS 1-2 VIEWSon 2021 XR PELVIS [...] Self Edit Transcribed Date: 08/28/2021 15:40 Normal [facility] XR Pelvis 1-2 [employer] 2021 Surgical changes fro m a total right hip arthroplasty with normal alignment. -------- FINAL REPORT -------- Dictated By: Sina Nugyen Dictated Date: 08/28/2021 15:40 Assigned Physician: Sina [...] By: Self Edit Transcribed Date: 08/28/2021 15:40 [facility] Radiology Study observation (narrative) [facility] XR Pelvis 1-2 ViewsOrdered B y: Sina Nguyen on 08-28-2021 Hauula Sontra Work Phone: Covid-19 PCR (CVDTB)on 08-11 SARS-CoV-2 (COVID-19) RNA HELLEN+probe Ql (Unsp spec) Not detected Normal NOT DETECTED [facility] [place] Comment on above: Result Comment: This test is not yet approved or cleared by the [place] FDA. When there are no FDA-approved or cleared tests available, and other criteria are met, FDA can make tests available under an emergency access mechanism called an Emergency Use Authorization (EUA). The EUA for this test is supported by the Reading Efficiency Course Director of Health and Human Service's (HHS's) declaration [...] SARS-CoV-2. Performed By: #### C VDTB #### [facility] [place] [facility] [address] [place], [place] [address] Dr. Bakari Isidro Basic metabolic 2000 panelon 08-02-2021 Anion gap [Moles/Vol] 10 mmol/L Normal -18 [facility] Comment on above: Performed By: #### 2 4321-2 #### [facility] [address] [place] [address] Calcium [Mass/Vol] 9.6 mg/dL Normal 8.9-10.3 [facility] Comment on above: Performed By: #### 2 4321-2 #### [facility] [address] [place] [address] Chloride [Moles/Vol] 103 mmol/L Normal 98-107 [facility] Comment on above: Performed By: #### 2 4321-2 #### [facility] [address] [place] [address] CO2 [Moles/Vol] 27 mmol/L Normal 22-32 [facility] Comment on above: Performed By: #### 2 4321-2 #### [facility] [address] [facility] [place] [address] Creatinine [Mass/Vol] 0.60 mg/dL Normal 0.60-1.30 [facility] Comment on above: Performed By: #### 2 4321-2 #### [facility] [address] [facility] [place] [address] GFR/1.73 sq M.predicted among non-blacks MDRD (S/P/Bld) [Vol rate/Area] 101 mL/min/{1.73_m2} Normal [facility] Comment on above: Performed By: #### 2 4321-2 #### [facility] [address] [facility] [place] [address] Glucose [Mass/Vol] 86 mg/dL Normal 70-99 [facility] Comment on above: Performed By: #### 2 4321-2 #### [facility] [address] [facility] [place] [address] Potassium [Moles/Vol] 4.5 mmol/L Normal 3.6-5.1 [facility] Comment on above: Performed By: #### 2 4321-2 #### [facility] [address] [place] [address] Sodium [Moles/Vol] 140 mmol/L Normal 136-145 [facility] Comment on above: Performed By: #### 2 4321-2 #### [facility] [address] [place] [address] Urea nitrogen [Mass/Vol] 28 mg/dL High 8-20 [facility] Comment on above: Performed By: #### 2 4321-2 #### [facility] [address] [place] [address] Urea nitrogen/Creatini ne [Mass ratio] 46.7 mg/mg High 12.0-20.0 [facility] Comment on above: Performed By: #### 2 4321-2 #### [facility] [address] [place] [address] Hemogram and platelets WO di fferential panel (Bld)on 08-02-2021 Basophils (Bld) [#/Vol] 0.10 10*3/uL Normal 0.00-0.20 [facility] Comment on above: Performed By: #### 2 4317-0 #### [facility] [address] [place] [address] Basophils/100 WBC (Bld) 0.6 % Normal 0.0-2.0 [facility] Comment on above: Performed By: #### 2 4317-0 #### [facility] [address] [place] [address] Eosinophils (Bld) [#/Vol] 0.10 10*3/uL Normal 0.00-0.70 [facility] Comment on above: Performed By: #### 2 4317-0 #### [facility] [address] [place] [address] Eosinophils/100 WBC (Bld) 1.6 % Normal 0.0-7.0 [facility] Comment on above: Performed By: #### 2 4317-0 #### [facility] [address] [place] [address] Erythrocyte distribution width (RBC) [Ratio] 13.8 % Normal 11.0-14.8 [facility] Comment on above: Performed By: #### 2 4317-0 #### [facility] [address] [place] [address] Hematocrit (Bld) [Volume fraction] 40.1 % Normal 35.0-45.0 [facility] Comment on above: Performed By: #### 2 4317-0 #### [facility] [address] [place] [address] Hemoglobin (Bld) [Mass/Vol] 13.1 g/dL Normal 12.0-16.0 [facility] Comment on above: Performed By: #### 2 4317-0 #### [facility] [address] [place] [address] Lymphocytes (Bld) [#/Vol] 1.80 10*3/uL Normal 1.00-4.80 [facility] Comment on above: Performed By: #### 2 4317-0 #### [facility] [address] [place] [address] Lymphocytes/100 WBC (Bld) 22.7 % Normal 22.0-44.0 [facility] Comment on above: Performed By: #### 2 4317-0 #### [facility] [address] [place] [address] MCH 28.1 pcg Normal 27.0-34.0 [facility] Comment on above: Performed By: #### 2 4317-0 #### [facility] [address] [place] [address] MCHC (RBC) [Mass/Vol] 32.7 g/dL Normal 32.0-36.0 [facility] Comment on above: Performed By: #### 2 4317-0 #### [facility] [address] [facility] [address] MCV (RBC) [Entitic vol] 86.0 fL Normal 80.0-97.0 [facility] Comment on above: Performed By: #### 2 4317-0 #### [facility] [address] [place] [address] Monocytes (Bld) [#/Vol] 0.50 10*3/uL Normal 0.00-0.90 [facility] Comment on above: Performed By: #### 2 4317-0 #### [facility] [address] [place] [address] Monocytes/100 WBC (Bld) 6.3 % Normal 0.0-12.0 [facility] Comment on above: Performed By: #### 2 4317-0 #### [facility] [address] [place] [address] Neutrophils Absolute 5.30 K/mcL Normal 1.80-7.70 [facility] Comment on above: Performed By: #### 2 4317-0 #### [facility] [address] [place] [address] Neutrophils/100 WBC (Bld) 68.8 % Normal 40.0-70.0 [facility] Comment on above: Performed By: #### 2 4317-0 #### [facility] [address] [place] [address] Platelet mean volume (Bld) [Entitic vol] 8.6 fL Normal 6.2-12.1 [facility] Comment on above: Performed By: #### 2 4317-0 #### [facility] [address] [place] [address] Platelets (Bld) [#/Vol] 290 10*3/uL Normal 142-424 [facility] Comment on above: Performed By: #### 2 4317-0 #### [facility] [address] [place] [address] RBC (Bld) [#/Vol] 4.66 10*6/uL Normal 3.80-5.10 [facility] Comment on above: Performed By: #### 2 4317-0 #### [facility] [address] [place] [address] WBC (Bld) [#/Vol] 7.8 10*3/uL Normal 4.6-10.2 [facility] Comment on above: Performed By: #### 2 4317-0 #### [facility] [address] [place] [address] Nuclear IgG IA Ql (S)on 07-13 Bacteria identified Cx Nom (U) 1 ORGANISM 202 Abnormal >137616 CFU/mL Escherichia coli The organism value for [...] Islt <=20 ug/ml Susceptible Invalid Interpretation Code [facility] Comment on above: Performed By: #### 2 9950-3 #### [facility] [address] [place] [address] Bacteria, Urine Moderate Abnormal None [facility] Comment on above: Performed By: #### 2 9950-3 #### [facility] [place] [facility] [address] [place] [address] Calcium Oxalate Crystals, Urine Occasional Abnormal None [facility] Comment on above: Performed By: #### 2 9950-3 #### [facility] [place] [facility] [address] [place] [address] RBC, Urine None Seen Normal 0-5 [facility] Comment on above: Performed By: #### 2 9950-3 #### [facility] [place] [facility] [address] [place] [address] WBC, Urine 0-5 Normal 0-5 [facility] Comment on above: Performed By: #### 2 9950-3 #### [facility] [place] [facility] [address] [place] [address] OPERATIVE NOon 04-10-2021 OPERATIVE NO HNO ID: [id number] Author: Paul Odonnell MD Service: General Surgery Author Type: Physician Type: Operative Report Filed: 04/10/2021 11:55 AM Note Text: [facility] - Operative Report JESSICA CARDOSO : 1965 AGE: 55. SEX: F PATIENT TYPE: I HOSP SVC: GENS LOCATION: [facility][1] ATTENDING PHYSICIAN: Paul Odonnell MD CSN NUMBER: [id number] DATE OF SURGERY/PROCEDURE: 03/29/2021 INCISION/PROCEDURE START TIME: 10:33 AM INCISION CLOSE/PROCEDURE END TIME: 11:30 AM PREOPERATIVE DIAGNOSIS: 1. Morbid obesity with a BMI of 45. 2. Hyperlipidemia. 3. Hypertension. 4. Obstructive sleep apnea. POSTOPERATIVE DIAGNOSIS: 1. Morbid obesity with a BMI of 45. 2. Hyperlipidemia. 3. Hypertension. 4. Obstructive sleep apnea. SURGEON: Paul Odonnell MD SUPERVISOR MOLD SHOP: Pb Upton MD SURGERY/PROCEDURE: 1. Laparoscopic sleeve [...] any posterior hiatal hernia was noted. A 36-Turkmen bougie was passed in the stomach. Multiple [...] and scrubbed in throughout the operation. Paul Odonnell MD TA:[id number] [id number] [facility] 03-31-2021 [facility] HNO ID: [id number] Author: Titus Colon MD Service: General Surgery Author Type: Resident Type: Discharge Summary Filed: 03/31/2021 8:49 AM Note Text: Attestation signed by Paul Odonnell MD at 04/08/2021 10:52 AM GENERAL SURGERY DISCHARGE SUMMARY PATIENT NAME: Jessica Cardoso ADMISSION DATE: 03/29/2021 DISCHARGE DATE: 03/31/2021 ATTENDING PHYSICIAN: Paul Odonnell MD Code Status: Not on file Highest [...] PROCEDURES DURING HOSPITALIZATION: EGD HOSPITAL COURSE: Jessica Cardoso is a 55 year old with PMHx [...] HOSPITALIZATION: None Treatment Team: Attending Provider: Paul Odonnell MD PATIENT CONDITION AT DISCHARGE: Stable DISCHARGE [...] Provider Department Center 04/11/2021 4:10 PM Paul Odonnell MD [id number] [facility] 05/01/2021 9:00 AM Barbara Martines, PhD [facility]PSMN [facility] 05/09/2021 4:00 PM Paul Odonnell MD [id number] [facility] 05/10/2021 2:30 PM ROSALIND Mo [facility] The patient's risk for 30-day readmission is [...] of this (more content not included)... Normal [facility] NURSING PROGon 03-31-2021 NURSING PROG HNO ID: [id number] Author: Deepika Porras RN Service: ? Author Type: Registered Nurse Type: Nursing Progress Note Filed: 03/31/2021 1:36 AM Note Text: Nursing Progress Note Patient Name: Jessica Cardoso Patient Location: / 1999 (late entry) Patient [...] This note was completed by: Deepika Porras [facility] 03-30-2021 [facility] HNO ID: [id number] Author: Titus Colon MD Service: General Surgery [...] GENERAL SURGERY DISCHARGE SUMMARY PATIENT NAME: Jessica Cardoso ADMISSION DATE: 03/29/2021 DISCHARGE DATE: 03/30/2021 ATTENDING PHYSICIAN: Paul Odonnell MD Code Status: Not on file Highest [...] PROCEDURES DURING HOSPITALIZATION: EGD HOSPITAL COURSE: Jessica Cardoso is a 55 year old with PMHx [...] HOSPITALIZATION: None Treatment Team: Attending Provider: Paul Odonnell MD PATIENT CONDITION AT DISCHARGE: Stable DISCHARGE [...] Provider Department Center 04/11/2021 4:10 PM Paul Odonnell MD [id number] [facility] 05/01/2021 9:00 AM Barbara Martines, PhD [facility] 05/09/2021 4:00 PM Paul Odonnell MD [id number] [facility] 05/10/2021 2:30 PM ROSALIND Mo M dg The patient's risk for 30-day readmission is determined using the following contributing factors: Pt variables contributing to increased readmission risk: 25 Most Recent BUN Result 13 Active Medication Orders 1 Insurance - Medicaid 1 Active (more content not included)... Normal [facility] CONSULTon 03-30-2021 CONSULT HNO ID: [id number] Author: Clifton Forde MD Service: General Surgery Author Type: Resident Type: Consults Filed: 03/30/2021 8:27 AM Note Text: PROGRESS NOTES - SURGICAL SERVICES Jessica Cardoso [id number] ASSESSMENT/PLAN: 55 year old year old female [...] Yamilex Forde MD PGY-2 General Surgery Surgery [place] Team [phone] weekdays. Or [phone] weeknights (6pm - 6am) and weekends. SUBJECTIVE [...] no surrounding erythema. DATA: Date 03/29/21699 - 03/30/2165803/30/21699 - 03/31/21 0659 Shift 0806-7865 4270-9705 3192-9320 24 Hour Total 5242-6406 5672-7433 8960-7825 24 Hour Total INTAKE PO 200 150 350 PO 200 150 350 IV 1150 1150 Volume (mL) (ceFAZolin iv piggyback 2 g in D5W (iso-osmotic) 100 mL (ANCEF)) 100 100 Volume (mL) (magnesium sulfate 2 g in NaCl 0.9% 100 mL) 100 100 Volume (mL) (lactated ringers iv infusion) 950 950 Shift Total 6137 680 9019 OUTPUT Urine 200 400 600 Void (ml) [...] imaging results. CBC, Coags, BMP, Mg, Phos [facility] NURSING PROGon 03-30-2021 NURSING PROG HNO ID: [id number] Author: Theresa Rosas RN Service: ? Author [...] Paged team 1346: (late entry) administered compazine. [facility] NURSING PROG HNO ID: [id number] Author: Cookie Capellan RN Service: ? Author Type: Registered Nurse Type: Nursing Progress Note Filed: 03/30/2021 3:41 AM Note Text: Nursing Progress Note Patient Name: Jessica Cardoso Patient Location: [place] [address] Daily Note: 0339: Pt's HR tachy at rest, this RN witnessed it as high as 112. Temp 99.3 F. Text page sent to SROC to inform. This note was completed by: Cookie Capellan [facility] ANES POSTPROC EVALon 021 ANES POSTPROC EVAL HNO ID: [id number] Author: Gary Acosta MD Service: Anesthesiology Author Type: Anesthesiologist Type: Anesthesia Postprocedure Evaluation Filed: 03/29/2021 12:16 PM Note Text: POST ANESTHESIA EVALUATION NOTE : 1965 Procedure Summary Date: 03/29/21 Room / Location: OR10 / [facility] OR Anesthesia Start: 1010 Anesthesia Stop: 1143 Procedure: LAPAROSCOPIC LONGITUDINAL GASTRECTOMY, GASTRIC RESTRICTIVE PROCEDURE (N/A Abdomen) Diagnosis: Morbidly obese (HCC) (Morbidly obese (HCC) [E66.01]) Surgeons: Paul Odonnell MD Responsible Provider: Tiburcio Eisenberg MD Anesthesia [...] SIGNATURE: Gary Acosta MD PATIENT NAME: Jessica Cardoso DATE: March 29, 2021 TIME: 12:15 PM CSN: [id number] [facility] ANES PRE-OPon 03-29-2021 ANES PRE-OP HNO ID: [id number] Author: Tiburcio Eisenberg MD Service: Anesthesiology Author Type: Anesthesiologist Type: Anesthesia Preprocedure Evaluation Filed: 03/29/2021 9:36 AM Note Text: ANESTHESIOLOGY DAY OF SURGERY NOTE : 1965 Procedure Information Date/Time: 03/29/21 0945 Procedure: LAPAROSCOPIC LONGITUDINAL GASTRECTOMY, GASTRIC RESTRICTIVE PROCEDURE (N/A ) Location: OR10 / [facility] OR Surgeons: Paul Odonnell MD Estimated body mass index is 46.77 [...] 03/29/21 0910 Temp 36.3 ?C (97.3 ?F) 03/29/21 0910 SpO2 98 % 03/29/21 0910 Facility-Administered [...] SIGNATURE: Tiburcio Eisenberg MD PATIENT NAME: Jessica Cardoso DATE: March 29, 2021 TIME: 9:34 AM CSN: [id number] [facility] BRIEF OP NOTon 03-29-2021 BRIEF OP NOT HNO ID: [id number] Author: Pb Upton MD Service: General Surgery Author Type: Resident Type: Brief Op Note Filed: 03/29/2021 12:27 PM Note Text: BRIEF OPERATIVE NOTE [facility] LOG ID: [id number] SURGERY/PROCEDURE DATE: 03/29/2021 INCISION/PROCEDURE START TIME: 10:33 AM INCISION CLOSE/PROCEDURE END TIME: 11:30 AM SURGEON(S) AND SUPERVISOR MOLD SHOP(S): Surgeon(s) and Role: * Paul Odonnell MD - Primary * Pb Upton MD [...] SIGNATURE: Pb Upton MD PATIENT NAME: Jessica Cardoso DATE: March 29, 2021 TIME: 12:26 PM PAGER/CONTACT #: [facility] NURSING PROGon 03-29-2021 NURSING PROG HNO ID: [id number] Author: Deena Atkinson RN Service: ? Author Type: Registered Nurse Type: Nursing Progress Note Filed: 03/29/2021 8:57 AM Note Text: PATIENT EDUCATION TOPIC: PROCEDURE / SURGERY: Pre-op Teaching: Logistics Protocols PATIENT NAME: Jessica Cardoso PATIENT LOCATION: [facility] OR POOL/[facility] OR POOL [...] (RECOMMENDATION): None Electronically Signed By: Deena Atkinson [facility] SURGICAL PATHOLOGYon 021 SURGICAL PATHOLOGY Specimen originated from [facility] Specimen #: [id number] Submitting Physician: PAUL ODONNELL MD FINAL DIAGNOSIS Portion of stomach, excision - Segment of gastric body/fundus with no diagnostic abnormality. PILY/kljoseph 04/02/2021 Mal Riggs M.D. (Electronic Signature) SPECIMEN [...] The serosal surface is kruse-pink and smooth. Clean Up Supervisor sections are submitted in four cassettes. / 03/29/2021 Gross examination performed at [facility], [address] [place] [address] Date of Report: 04/02/2021 Date of Procedure: 03/29/2021 Date of Receipt: 03/29/2021 Submitted by: PAUL ODONNELL MD Location: [facility] Diagnostic interpretation performed at [facility], [address] [place] [address]. CLIA Number: [id number] Normal [facility] THERAPY NTon 03-29-2021 THERAPY NT HNO ID: [id number] Author: Tete Knapp RRT Service: Respiratory Therapy Author Type: Respiratory Therapist Type: Therapy (PT/OT/Speech/Resp) Filed: 03/29/2021 4:24 PM Note Text: Patient does not wear CPAP at home. No unit in the room. Tete Knapp RRT Normal [facility] HISTORY PHYSICALon HISTORY PHYSICAL HNO ID: [id number] Author: Deanna Bourne PA-C Service: ? Author Type: Physician Alumni Relations Coordinator Type: HANDP Filed: 03/26/2021 8:17 AM Note Text: HISTORY AND PHYSICAL EXAMINATION SERVICE DATE: 03/22/2021 SERVICE TIME: 9:29 AM PRIMARY CARE PHYSICIAN: Yaneth Garcia MD REASON FOR VISIT: Jessica Cardoso is a 55 year old female who is scheduled for XI ROBOTIC LONGITUDINAL GASTRECTOMY,GASTRIC RESTRICTIVE PROCEDURE at the request of Dr. Jesus Lobato for consultation. My final recommendation will be [...] fevers. Neuro: No history of TIA's, stroke, RN ED tumor, impaired sensorium, hemiplegia, paraplegia or quadraplegia. No neurological symptoms or problems. Respiratory: No history of current cough or dyspnea, or pneumonia in the past 6 weeks. No history of respiratory/pulmonary symptoms or problems. Cardiovascular: No history of HTN requiring medication, no history of angina, CHF, [place], cardiac surgery or stents. Denies rest pain, gangrene or revascularization/amputation for PVD. No history of cardiovascular symptoms or problems. 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 Normal [facility] Type and SCR (30D)on 021 ABO/RH(D) Positive Normal [facility] Comment on above: Performed By: #### T SCR30 ####[place] [phone] Basic Metabolic Panlon 12-28 Anion gap [Moles/Vol] 11 mmol/L Normal 9-18 [facility] Comment on above: Performed By: #### C BC, BMP #### [place] [phone] Calcium [Mass/Vol] 8.7 mg/dL Normal 8.5-10.5 [facility] Comment on above: Performed By: #### C BC, BMP #### [address] Chloride [Moles/Vol] 107 mmol/L Normal 98-110 [facility] Comment on above: Performed By: #### C BC, BMP #### [place] [phone] CO2 [Moles/Vol] 23 mmol/L Normal 23-32 [facility] Comment on above: Performed By: #### C BC, BMP #### [place] [phone] Creatinine [Mass/Vol] 0.52 mg/dL Low 0.70-1.40 [facility] Comment on above: Performed By: #### C BC, BMP #### [place] [phone] eGFR- Amer. >60 Normal >60 [facility] Comment on above: Performed By: #### C BC, BMP #### [place] [phone] eGFR-All Other Races >60 Normal >60 [facility] Comment on above: Result Comment: eGFR (Estimated [...] reflect actual GFR. Performed By: #### C ADRIAN, BMP #### [place] [phone] Glucose [Mass/Vol] 106 mg/dL High 65-100 [facility] Comment on above: Performed By: #### C ADRIAN, BMP #### [place] [phone] Potassium [Moles/Vol] 4.0 mmol/L Normal 3.5-5.0 [facility] Comment on above: Performed By: #### C ADRIAN, BMP #### [phone] Sodium [Moles/Vol] 141 mmol/L Normal 132-148 [facility] Comment on above: Performed By: #### C ADRIAN, BMP #### [phone] Urea nitrogen [Mass/Vol] 11 mg/dL Normal 8-25 [facility] Comment on above: Performed By: #### C ADRIAN, BMP #### [phone] CBCon 12-28-2020 Absolute nRBC <0.01 Normal <0.01 [facility] Comment on above: Performed By: #### C BC, BMP #### [place] [phone] Erythrocyte distribution width (RBC) [Ratio] 12.5 % Normal 11.5-15.0 [facility] Comment on above: Performed By: #### C ADRIAN, BMP #### [place] [id number] Hematocrit (Bld) [Volume fraction] 37.7 % Normal 36.0-46.0 [facility] Comment on above: Performed By: #### C BC, BMP #### [place] [address] Hemoglobin (Bld) [Mass/Vol] 12.1 g/dL Normal 11.5-15.5 [facility] Comment on above: Performed By: #### C ADRIAN, BMP #### [place] [address] MCH 28.1 pG Normal 26.0-34.0 [facility] Comment on above: Performed By: #### C ADRIAN, BMP #### [place] [address] MCHC (RBC) [Mass/Vol] 32.1 g/dL Normal 30.5-36.0 [facility] Comment on above: Performed By: #### C ADRIAN, BMP #### [place] [phone] MCV (RBC) [Entitic vol] 87.7 fL Normal 80.0-100.0 [facility] Comment on above: Performed By: #### C ADRIAN, BMP #### [place] [address] Platelet mean volume (Bld) [Entitic vol] 9.6 fL Normal 9.0-12.7 [facility] Comment on above: Performed By: #### C BC, BMP #### [place] [address] Platelets (Bld) [#/Vol] 226 10*3/uL Normal 150-400 [facility] Comment on above: Performed By: #### C ADRIAN, BMP #### [address] [address] RBC (Bld) [#/Vol] 4.30 10*6/uL Normal 3.90-5.20 [facility] Comment on above: Performed By: #### C BC, BMP #### [facility] [address] [place] [address] WBC (Bld) [#/Vol] 8.65 10*3/uL Normal 3.70-11.00 [facility] Comment on above: Performed By: #### C BC, BMP #### [facility] [address] [place] [address] CNDSon 12-28-2020 CNDS HNO ID: [id number] Author: Loren Boyd MD Service: General Surgery Author Type: Resident Type: Discharge Summary Filed: 12/28/2020 7:54 AM Note Text: Attestation signed by Jesus Lobato MD at 12/28/2020 10:00 AM Uncomplicated stay for right adrenalectomy Jesus Lobato MD GENERAL SURGERY DISCHARGE SUMMARY PATIENT NAME: Jessica Cardoso ADMISSION DATE: 12/27/2020 DISCHARGE DATE: 12/28/2020 ATTENDING PHYSICIAN: Jesus Lobato MD Code Status: Not on file Highest [...] was uncomplicated. Patient was then returned to [facility] where her post-op recovery was essentially unremarkable. [...] HOSPITALIZATION: None Treatment Team: Attending Provider: Jesus Lobato MD PATIENT CONDITION AT DISCHARGE: Stable DISCHARGE [...] Provider Department Center 01/07/2021 10:50 AM Jesus Lobato MD BMIREJ REJ The patient's risk for 30-day readmission is determined using the following contributing factors: Pt variables contributing to increased readmission risk: 15 Most Recent BUN Result 8 Active Medication Orders 1 Insurance - Medicaid 1 Active Anticoagulant SIGNATURE: Loren Boyd MD DATE: December 28, 2020 TIME: 7:46 AM [facility] NURSING PROGon 12-28-2020 NURSING PROG HNO ID: [id number] Author: Maicol Monae RN Service: ? Author Type: Registered Nurse Type: Nursing Progress Note Filed: 12/28/2020 4:08 AM Note Text: Nursing Progress Note Patient Name: Jessica Cardoso Patient Location: Daily Note: 0200 Patients IV removed for possible infiltration, ice applied and elevated, new IV placed. Paged house to make them aware. This note was completed by: Maicol Monae [facility] NURSING PROG HNO ID: [id number] Author: Maicol Monae RN Service: ? Author Type: Registered Nurse Type: Nursing Progress Note Filed: 12/27/2020 10:25 PM Note Text: Nursing Progress Note Patient Name: Jessica Cardoso Patient Location: Daily Note: 20:20 patients heartrate sustaining in 120's, patient asymptomatic but in pain, gave 5mg of oxycodone and paged surgery. 20:30 Dr. Guzman came to assess patient, changed pain meds and advised to monitor and manage pain. This note was completed by: Maicol Monae [facility] ANES POSTPROC EVALon ANES POSTPROC EVAL HNO ID: [id number] Author: Donnell Chicas MD Service: Anesthesiology Author Type: Anesthesiologist Type: Anesthesia Postprocedure Evaluation Filed: 12/27/2020 5:02 PM Note Text: POST ANESTHESIA EVALUATION NOTE : 1965 Procedure Summary Date: 12/27/20 Room / Location: OR / [facility] OR Anesthesia Start: 1222 Anesthesia Stop: 1531 Procedure: LAPAROSCOPIC ADRENALECTOMY (Right Abdomen) Diagnosis: Adrenal mass greater than 4 cm in diameter (HCC) Preoperative examination (Adrenal mass greater than 4 cm in diameter (HCC) [E27.8]) (Preoperative examination [Z01.818]) Surgeons: Jesus Lobato MD Responsible Provider: Abilio Hansen DO Anesthesia [...] SIGNATURE: Donnell Chicas MD PATIENT NAME: Jessica Cardoso DATE: December 27, 2020 TIME: 4:54 PM CSN: [id number] [facility] ANES PRE-OPon 12-27-2020 ANES PRE-OP HNO ID: [id number] Author: Abilio Hansen DO Service: Critical Care Author Type: Anesthesiologist Type: Anesthesia Preprocedure Evaluation Filed: 12/27/2020 9:09 AM Note Text: ANESTHESIOLOGY DAY OF SURGERY NOTE : 1965 Procedure(s) (LRB): LAPAROSCOPIC ADRENALECTOMY (Right) Surgeon(s): Jesus Lobato MD Estimated body mass index is 47.55 [...] 0854 Pulse 90 12/27/20 0854 Resp 18 12/27/2054 Temp 36 ?C (96.8 ?F) 12/27/20 08 SpO2 99 % 12/27/20 0854 Facility-Administered Medications [...] SIGNATURE: Abilio Hansen DO PATIENT NAME: Jessica Cardoso DATE: December 27, 2020 TIME: 9:06 AM CSN: [id number] [facility] BRIEF OP NOTon 12-27-2020 BRIEF OP NOT HNO ID: [id number] Author: Kadi Flanagan MD Service: General Surgery Author Type: Resident Type: Brief Op Note Filed: 12/27/2020 3:28 PM Note Text: Attestation signed by Jesus Lobato MD at 12/27/2020 3:37 PM [id number] Jesus Lobato MD BRIEF OPERATIVE / PROCEDURE NOTE LOG ID: [id number] Surgery/Procedure Date: 12/27/2020 Incision/Procedure Start Time: 1:31 PM Incision Close/Procedure End Time: 3:13 PM Surgeon(s)/Proceduralist(s) and Alumni Relations Coordinator(s): Surgeon(s) and Role: * Jesus Lobato MD - Primary * Kadi Flanagan MD [...] SIGNATURE: Kadi Flanagan MD PATIENT NAME: Jessica Cardoso DATE: December 27, 2020 TIME: 3:27 PM Normal [facility] Confirm Blood Typeon 021 ABO/RH(D) Positive [facility] Comment on above: Performed By: #### C ONABO ####[facility] [place], [place] [phone] HISTORY PHYSICALon HISTORY PHYSICAL HNO ID: [id number] Author: Kadi Flanagan MD Service: General Surgery Author Type: Resident Type: HANDP Filed: 12/27/2020 9:46 AM Note Text: Attestation signed by Jesus Lobato MD at 12/27/2020 12:23 PM Jesus Lobato MD UPDATED HISTORY AND PHYSICAL EXAMINATION SERVICE [...] SIGNATURE: Kadi Flanagan MD PATIENT NAME: Jessica Cardoso DATE: December 27, 2020 TIME: 9:45 AM [facility] NURSING PROGon 12-27-2020 NURSING PROG HNO ID: [id number] Author: Barbara Calix RN Service: Nursing Author Type: Registered Nurse Type: Nursing Progress Note Filed: 12/27/2020 8:02 PM Note Text: Nursing Progress Note Patient Name: Jessica Cardoso Patient Location: [facility]/ Daily Note: 1745 Received patient from PACU, alert, Abdominal Stab sites intact. Up to bathroom with contact guard, gait steady. This note was completed by: Barbara Calix [facility] NURSING PROG HNO ID: [id number] Author: [place] Abdul RN Service: Nursing Author Type: Registered Nurse Type: Nursing Progress Note Filed: 12/27/2020 8:44 AM Note Text: PATIENT EDUCATION TOPIC: PROCEDURE / SURGERY: Pre-op Teaching: Logistics PATIENT NAME: Jessica Cardoso PATIENT LOCATION: [facility] OR [place]/[facility] OR POOL READINESS TO LEARN COGNITIVE ABILITY: [...] (RECOMMENDATION): None Electronically Signed By: Valencia Abdul [facility] OPERATIVE NOon 12-27-2020 OPERATIVE NO HNO ID: [id number] Author: Jesus Lobato MD Service: General Surgery Author Type: Physician Type: Operative Report Filed: 12/28/2020 10:33 AM Note Text: [facility] - Operative Report JESSICA CARDOSO : 1965 AGE: 55. SEX: F PATIENT TYPE: I HOSP SVC: GENS LOCATION: [id number] ATTENDING PHYSICIAN: Jesus Lobato M.D. CSN NUMBER: [id number] DATE OF SURGERY/PROCEDURE: 12/27/2020 INCISION/PROCEDURE START TIME: 1:31 PM INCISION CLOSE/PROCEDURE END TIME: 3:13 PM PREOPERATIVE DIAGNOSIS: Indeterminate right adrenal mass, nonfunctional. POSTOPERATIVE DIAGNOSIS: Indeterminate right adrenal mass, nonfunctional. SURGEON: Jesus Lobato M.D. SUPERVISOR MOLD SHOP: Adrien Flanagan MD. SURGERY/PROCEDURE: Laparoscopic right adrenalectomy. [...] I performed this procedure with assistance. Jesus Lobato M.D. JRG:[id number] /[id number] Normal [facility] SURGICAL PATHOLOGYon 021 SURGICAL PATHOLOGY Specimen originated from [facility] Specimen #: [id number] Submitting Physician: Jesus Lobato M.D. FINAL DIAGNOSIS Right adrenal, adrenalectomy - Adrenal cortical adenoma, 4.8 cm, fully excised. RMAkua/LZ/marina 12/31/2020 Vivienne Rodriguez MD (Electronic Signature) SPECIMEN [...] cortical tissue and virtually no medullary component. Clean Up Supervisor sections are submitted as follows: A1-A6 adrenal mass, A7 uninvolved adrenal parenchyma. ZEV/arely 12/28/2020 Gross examination performed at [place] [address] Date of Report: 01/01/2021 Date of Procedure: 12/27/2020 Date of Receipt: 12/27/2020 Submitted by: Jesus Lobato M.D. Location: [facility] Diagnostic interpretation performed at [place] [address]. CLIA Number: [id number] Normal [facility] Type and SCR (30D)on 021 ABO/RH(D) Positive Normal [facility] Comment on above: Performed By: #### T SCR30 ####[address] [phone] HISTORY PHYSICALon HISTORY PHYSICAL HNO ID: [id number] Author: Sahde Hilton MD Service: General Surgery Author Type: Resident Type: HANDP Filed: 10/19/2020 10:14 AM Note Text: Attestation signed by Jesus Lobato MD at 10/19/2020 10:27 AM Jesus Lobato MD GENERAL SURGERY HANDP SERVICE DATE: 10/19/2020 [...] SIGNATURE: Shade Hilton MD PATIENT NAME: Jessica Cardoso DATE: October 19, 2020 TIME: 9:50 AM PAGER/CONTACT #: [phone] [facility] NURSING PROGon 10-19-2020 NURSING PROG HNO ID: [id number] Author: Maris Caruso RN Service: ? Author Type: Registered Nurse Type: Nursing Progress Note Filed: 10/19/2020 9:54 AM Note Text: PATIENT EDUCATION TOPIC: PROCEDURE / SURGERY: Procedure/Surgery: EGD PATIENT NAME: Jessica Cardoso PATIENT LOCATION: [facility] ENDO POOL/[facility] ENDO POOL [...] (RECOMMENDATION): None Electronically Signed By: Maris Caruso [facility] SURGICAL PATHOLOGYon 021 SURGICAL PATHOLOGY Specimen originated from [facility] Specimen #: [id number] Submitting Physician: Jesus Lobato M.D. FINAL DIAGNOSIS 1. Stomach, body, biopsy (A) - Gastric antral-type mucosa with reactive gastropathy. - Separate fragment of gastric body-type mucosa with no diagnostic abnormality. 2. Esophagus, Z-line, biopsy (B) - Squamous mucosa with focal reactive epithelial changes suggestive of gastroesophageal reflux. - Gastric cardia-type mucosa with mild chronic inflammation, negative for intestinal metaplasia or dysplasia. PILY/kljoseph 10/22/2020 COMMENT 1. No Helicobacter pylori organisms [...] in one cassette. Gross examination performed at [facility], [address] [place], [place] [id number] 10/19/2020 5:46:23 PM Date of Report: 10/22/2020 Date of Procedure: 10/19/2020 Date of Receipt: 10/19/2020 Submitted by: Jesus Lobato M.D. Location: ENDO Diagnostic interpretation performed at [facility], [address] [place] [address]. [place] Number: [id number] Normal [facility] COVID-19 Antigenon COVID-19 Antigen Results called at [...] its performance Maryellen Disclaimer characteristic determined by [employer] and Maryellen Disclaimer validated at [facility]. This Maryellen Disclaimer test has not [...] Emergency Use Authorization for Coronavirus Maryellen Disclaimer isease during the Public Health Emergency) Maryellen Disclaimer [...] is terminated or revoked sooner. PERFORMED BY: [place] [address] PATHOLOGIST BASKETBALL PLAYER DAVID THOMAS M.D. Normal [facility] Comment on above: Performed By: #### S OFIAPOS, COVID-19 MARYELLEN #### [facility] [address] [place] [address] Maryellen Ag Positiveon 06-26-19 21 Maryellen Ag Positive Positive Normal Negative [facility] Comment on above: Result Comment: This is a duplicate Maryellen SARS Antigen (ZARINA) result to be used for statistical tracking purpose only. PERFORMED BY: [place] [address] PATHOLOGIST BASKETBALL PLAYER DAVID THOMAS M.D. Performed By: #### S OFIAPOS, COVID-19 MARYELLEN #### [place] [id number] [facility] Vital Signs Date Time Vital Sign Value Performing Clinician Lidiai belén 08-28-2021 16:04-0400 SaO2% (BldA) [Mass fraction] 96 % Wyatt Tapia MD Work Phone: [facility] 08-28-2021 15:56-0400 Body temperature 97.81 [degF] Wyatt Tapia MD Work Phone: [facility] 08-28-2021 15:56-0400 Diastolic blood pressure 85 mm[Hg] Wyatt Tapia MD Work Phone: [facility] 08-28-2021 15:56-0400 Heart rate 99 /min Wyatt Tapia MD Work Phone: [facility] 08-28-2021 15:56-0400 Respiratory rate 14 /min Wyatt Tapia MD Work Phone: [facility] 08-28-2021 15:56-0400 Systolic blood pressure 137 mm[Hg] Wyatt Tapia MD Work Phone: [facility] 08-28-2021 11:00-0400 Body mass index (BMI) [Ratio] 38.52 kg/m2 Wyatt Tapia MD Work Phone: [facility] 08-28-2021 11:00-0400 Body weight 101.8 kg Wyatt Tapia MD Work Phone: [facility] 08-26-2021 10:00-0400 Body height 162.6 cm Wyatt Tapia MD Work Phone: [facility] Encounters Encounter Date Encounter Type Care Provider Facility Start: 10-16-2022 ambulatory NARENDRANATH LAKSHMIPATHY . Facility:[facility] Start: 07-29-2022 ambulatory NARENDRANATH LAKSHMIPATHY . Facility:[facility] Start: 07-24-2022 End: 07-25-2022 ambulatory NARENDRANATH LAKSHMIPATHY . Facility:[facility] Start: 07-03-2022 End: 07-04-2022 ambulatory NARENDRANATH LAKSHMIPATHY . Facility:[facility] Start: 05-01-2022 End: 05-02-[address] KAITLIN WILHELM . Facility:[facility] Start: 04-22-2022 Encounter for preprocedural laboratory examination DR KAITLIN WILHELM . [facility] Start: 04-01-2022 End: 04-01-[address] YANETH GARCIA . Facility:[facility] Start: 03-28-2022 End: 03-29-[address] KAITLIN WILHELM . Facility:[facility] Start: 03-28-2022 End: 03-29-2022 Encounter for preprocedural laboratory examination DR KAITLIN WILHELM . Facility:[facility] Start: 03-28-[address] YANETH GARCIA . Facili ty:[facility] Start: 03-20-2022 End: 03-21-2022 ambulatory THERESA WAGNER . Facility:[facility] Start: 02-18-[address] YANETH GARCIA . Facili ty:[facility] Start: 02-14-2022 End: 02-15-[address] YANETH GARCIA . Facility:[facility] Start: 02-11-2022 End: 02-11-[address] KAITLIN WILHELM . Facility:[facility] Start: 02-07-2022 End: 02-08-[address] YANETH GARCIA . Facility:[facility] Start: 12-12-2021 End: 12-13-2021 ambulatory THERESA WAGNER . Facility:[facility] Start: 11-20-2021 Encounter for genera l adult medical examination without abnormal findings DR YANETH GARCIA . [facility] Start: 11-19-2021 End: 11-20-[address] YANETH GARCIA . Facility:[facility] Start: 11-19-2021 End: 11-20-2021 Encounter for general adult medical examination without abnormal findings DR YANETH GARCIA . Facility:[facility] Start: 10-10-2021 End: 10-11-[address] KAITLIN WILHELM . Facility:[facility] Start: 08-30-2021 End: 09-28-[address] DOCTOR THOMAS Facility:[facility] Start: 08-28-2021 End: 08-28-2021 ambulatory WYATT TAPIA [facility] Start: 08-28-2021 End: 08-28-2021 Evaluation and management of inpatient Wyatt Tapia MD Work Phone: [facility] Start: 08-28-2021 End: 08-28-2021 Subsequent hospital visit by physician Wyatt Tapia MD Work Phone: [facility] Start: 08-26-2021 End: 08-27-[address] DOCTOR THOMAS Facility:[facility] Start: 07-14-2021 Refill Paul Odonnell MD Work Phone: General Surgery Comment on above: Refill Request Start: 05-10-2021 End: 05-10-2021 ambulatory PAUL ODONNELL Facility:[facility] Procedures Date Procedure Procedure Detail Performing Clinician Start: 08-28-2021 POCT GLUCOSE BLOOD Bita Tapia MD Work Phone: Start: 08-28-2021 Radiologic examinati on pelvis 1/2 views Zafar ACOSTA Work Phone: Start: 08-28-2021 POCT GLUCOSE BLOOD Bita Tapia MD Work Phone: Start: 03-22-2021 Antibody screen Comment on above: Performed By: #### T SCR30 ####[facility] [place], [place] [phone] Start: 12-14-2020 Antibody screen Comment on above: Performed By: #### T SCR30 ####[place] [id number] [place], [place] [phone] Plan of Treatment Date Care Activity Detail Author Start: 12-14-2025 LIPID SCREEN LIPID SCREEN [facility] Start: 03-22-2024 DIABETES SCREEN DIABETES SCREEN [facility] Start: 08-02-2022 Hypertension/CHF/CAD Annual BMP Blood Test Hypertension/CHF/CAD Annual BMP Blood Test [facility] Start: 08-28-2021 End: 08-28-2021 Arthrp acetblr/prox fem prostc agrft/algrft ARTHROPLASTY HIP TOTAL Unilateral primary osteoarthritis, right hip 08/28/2021 12:57 PM EDT [facility] Start: 07-01-2021 Adolescent depression screening assessment Depression Screening [facility] Start: 07-01-2021 Hepatitis C screening Hepatitis C Screening [facility] Start: 07-01-2021 HIV screening HIV Screening [facility] Start: 07-01-2021 Lipid panel Cholesterol Screening (Lipid Panel) [facility] Start: 07-01-2021 Screening for malignant neoplasm of breast Breast Cancer Screening [facility] Start: 07-01-2021 Screening for malignant neoplasm of colon Colorectal Cancer Screening: Colonoscopy [facility] Start: 07-01-2021 Screening for malignant neoplasm of lung Lung Cancer Screening (Low Dose CT) [facility] Start: 07-01-2021 Social Influencers of Health Screening Social Influencers of Health Screening [facility] Start: 07-17-2019 Influenza vaccination LUNG CANCER SCREENING [facility] Start: 2014 SHINGRIX VACCINE (1 of 2) SHINGRIX VACCINE (1 of 2) [facility] Start: 2014 Zoster Vaccines (1 of 2) Zoster Vaccines (1 of 2) [facility] Start: 2009 COLOGUARD (FIT-DNA) COLOGUARD (FIT-DNA) [facility] Start: 2009 Colonoscopy COLONOSCOPY [facility] Start: 2009 COLORECTAL CANCER SCREENING COLORECTAL CANCER SCREENING [facility] Start: [address] COLONOGRAPHY [facility] Start: 2009 FECAL OCCULT BLOOD FECAL OCCULT BLOOD [facility] Start: 2009 SIGMOIDOSCOPY SIGMOIDOSCOPY [facility] Start: 2004 Mammography MAMMOGRAM [facility] Start: 1994 HPV TESTING HPV TESTING [facility] Start: 1985 PAP TESTING PAP TESTING [facility] Start: 1985 Screening for malignant neoplasm of cervix Cervical Cancer Screening: Pap Smear [facility] Start: 07-17-1983 DTaP,Tdap,and Td Vaccines (1 - Tdap) DTaP,Tdap,and Td Vaccines (1 - Tdap) [facility] Start: 07-17-1983 Urine microalbumin profile DTAP,TDAP,TD (1 - Tdap) [facility] Start: 1982 HEPATITIS C SCREENING HEPATITIS C SCREENING [facility] Start: 1982 HIV SCREENING HIV SCREENING [facility] Start: 1976 Adult depression screening assessment DEPRESSION SCREENING [facility] Glucose [Mass/volume ] in Serum or Plasma POCT Glucose, blood Point of Care Testing-Docked Device Routine 08/28/2021 3:42 PM EDT [facility] Work Phone: Immunizations Immunization Date Immunization Notes Care Provider Den howard 12-28-2020 influenza, injectabl e, quadrivalent, preservative free Paul Odonnell MD Work Phone: [facility] Payers Date Payer Category Payer Medicaid [id number] 2020 Medicaid [id number] 1965 Unknown [id number] 2.16.8 [id number] 1965 Unknown [id number] 2.16.84 0.1.511626.3.579.2.593 1965 Unknown [id number] 2.16.84 0.1.734747.3.579.2.593 1964 Unknown [id number] 2.16.84 0.1.838604.3.579.2.593 1964 Unknown [id number] 2.16.84 0.1.494723.3.579.2.593 1964 Unknown [id number] 2.16.84 0.1.557921.3.579.2.593 1964 Unknown [id number] 2.16.84 0.1.830682.3.579.2.593 1964 Unknown [id number] 2.16.84 0.1.423979.3.579.2.593 1964 Unknown [id number] 2.16.84 0.1.991593.3.579.2.593 1964 Unknown [id number] 2.16.84 0.1.205183.3.579.2.593 1964 Unknown [id number] 2.16.84 0.1.808749.3.579.2.593 1964 Unknown [id number] 2.16.84 0.1.446066.3.579.2.593 1964 Unknown [id number] 2.16.84 0.1.713233.3.579.2.593 1964 Unknown [id number] 2.16.84 0.1.536027.3.579.2.593 1964 Unknown [id number] 2.16.84 0.1.379125.3.579.2.593 1964 Unknown [id number] 2.16.84 0.1.172433.3.579.2.593 1964 Unknown [id number] 2.16.84 0.1.035977.3.579.2.593 1964 Unknown [id number] 2.16.84 0.1.401374.3.579.2.593 1964 Unknown [id number] 2.16.84 0.1.180987.3.579.2.593 1965 Unknown [id number] 2.16.84 0.1.165272.3.579.2.593 1965 Unknown [id number] 2.16.84 0.1.445693.3.579.2.593 1960 Medicaid [id number] Social History Date Type Detail Facility Start: 12-12-2020 End: 08-26-2021 Tobacco smoking status NHIS Ex-smoker [facility] Work Phone: Start: 08-27-2015 End: 04-13-2018 History of tobacco use Current smoker [facility] Work Phone: End: 04-13-2018 History of tobacco use Cigarette Smoker [facility] Work Phone: Start: 12-12-2020 Cigarettes smoked current (pack per day) - Reported 1 [facility] Start: 12-12-2020 End: 08-26-2021 Tobacco use and exposure Smokeless tobacco non-user [facility] Work Phone: Start: 12-12-2020 History SDOH Alcohol Comment 2-3 per month [facility] Start: 1965 Sex Assigned At Female C [facility] Start: 08-28-2021 Alcohol intake Ex-drinker (finding) [facility] Start: 1965 Sex Assigned At Not on file T [facility] Start: 08-18-2021 End: 08-28-2021 Exposure to SARS-CoV-2 (event) Not sure [facility] Medical Equipment Procedure Code Equipment Code Equipment Origin al Text Equipment Identifier Dates G7 Finned 4 H Sh ell 54mm F - Sn/A - [id number]( 21)N/A, [id number] FDA Start: 08-28-2021 Liner G7 Neutral Ve 36mm F - Sn/A - [id number] ()[id number] [id number] (21)N/A, [id number] FDA Start: 08-28-2021 G7 Screw 6.5mm X 30mm - Sn/A - [id number] ()[id number] [id number]( 21)N/A, [id number] FDA Start: 08-28-2021 Complete Ho Collarless Sz 6 - Sn/A - [id number] ()[id number] [id number]( 21)N/A, [id number] FDA Start: 08-28-2021 Hip Hd Fem 03/26 Blx 36mm -3.5 - Sn/A - [id number] ()[id number] [id number]( 21)N/A, [id number] FDA Start: 08-28-2021 Clinical Notes 12-27-2020 to 07-24-2022 Shani Matamoros, RN - 08/28/2021 5:33 PM EDAlli Hyman, PT - 08/28/2021 4:30 PM Jaxon Hall, RN - 08/28/2021 1:48 PM Rocky Smith, RN - 08/28/2021 3:44 PM EDT [...] be discharged home after meeting criteria. [facility] 07-03-2022 Note CONSULTATION CONSULTATION DATE: 07/03/2022 TO: Dr. Garcia HISTORY: Patient returns today complaining of pain [...] p.o. daily to b.i.d., as well as Jasper 5 mg b.i.d., activity modification and a home exercise program. She reports she does respond to baclofen 10 mg at h.s. RECOMMENDATIONS: I have recommended a right knee joint injection. We will obtain urine toxicology screen at today's visit. [facility] 05-01-2022 Note CONSULTATION CONSULTATION DATE: 05/01/2022 HISTORY [...] 10 mg q.h.s., Celebrex 200 mg daily, Jasper 5/325 b.i.d. Patient's REVIEW OF SYSTEMS / [...] three months' time unless otherwise indicated. [facility] 03-20-2022 Note CONSULTATION CONSULTATION DATE: 03/20/2022 HISTORY [...] Current medications include Celebrex 200 mg daily, Jasper 5/325 b.i.d., baclofen 10 mg q. h.s [...] heat and vitamins. We will refill her Jasper and baclofen at the set dose and frequency. Patient agrees to move forward with the procedure and will be followed up in the clinic thereafter. [facility] 12-12-2021 Note CONSULTATION CONSULTATION DATE: 12/12/2021 HISTORY [...] Current medications include Celebrex 200 mg daily, Jasper 5/325 b.i.d., baclofen 10 mg q.h.s. and [...] refill for baclofen 10 mg q.h.s and Jasper 5/325 b.i.d. will be sent to her pharmacy. Patient agrees to move forward and be followed up in the clinic post procedure. [facility] 10-10-2021 Note CONSULTATION CONSULTATION DATE: 10/10/2021 This [...] she had a total hip replacement in [place] and feels great relief. Her pain is four out of 10 today. She does have right knee pain with known osteoarthritis and bone on bone to the lateral aspect. She has received a steroid knee injection on 10/07/2021 which gave her a fair amount of relief. Her current medications include Celebrex 200 mg q. day, Baclofen 10 mg q.h.s. and Jasper 5/325 t.i.d. The patient feels she doesn't [...] knee osteoarthritis. PLAN: We will refill her Jasper but decrease the dose to 5/325 b.i.d. [...] of care and all questions were answered. [facility] Signed and Approved by: THERESA WAGNER . 10/17/2021 10:22:00 [facility] 08-28-2021 History of Present illness Narrative Patient [...] (at family request) for home. Pt signed [employer] paperwork. Pt transfer and gait training with [facility] SBA. Curb step training with cga and cues for best safety practice as pt with bad R knee per report. Pt gait [id number] with antalgic gait pattern. Pt with 1+1 MAE and completed goals for home with family [...] Two level Home Access: Other (Comment) (1+1 MAE) Prior Level of Function: Prior Function Level of [place]: Independent with mobility and functional transfers Prior [...] Gait Training Activity 1: Gait with FWW [id number] SBA Gait Training Activity 2: Curb step training with FWW cga due to R knee deficits Gait Training Activity 3: Issued FWW and set to proper height, pt signed DASCO paperwork Assessment/Plan PT Assessment PT Assessment/ Barriers to discharge: Decreased strength, Impaired gait, Pain, Decreased mobility Prognosis: Excellent Evaluation/Treatment Tolerance: Patient tolerated treatment well Comments: Met PT goals for home Medical Staff Made Aware: Yes Comments: Shani, RN notified Plan Treatment/Interventions: Functional transfer training, Patient/family [...] End: 08/28/21 Description: Outcomes Date/Time User Outcome 08/28/211707 Cary Hyman PT Completed Goal: Pt will transfer with SBA. (Resolved) Dates: Start: 08/28/21 Expected End: 08/29/21 End: 08/28/21 Description: Outcomes Date/Time User Outcome 08/28/21Gloria Hyman PT Completed Goal: Pt will ambulate 75 ft. with wheeled walker and SBA (Resolved) Dates: Start: 08/28/21 Expected End: 08/29/21 End: 08/28/21 Description: Outcomes Date/Time User Outcome 08/28/21Gloria Hyman PT Completed Goal: Pt will ascend/descend curb step with CGA and LRAD (Resolved) Dates: Start: 08/28/21 Expected End: 08/29/21 End: 08/28/21 Description: Outcomes Date/Time User Outcome 08/28/21Gloria Hyman PT Completed Goal: Pt will demo good understanding of HEP protocol (Resolved) Dates: Start: 08/28/21 Expected End: 08/29/21 End: 08/28/21 Description: Outcomes Date/Time User Outcome 08/28/21Gloria Hyman PT Completed Education Documentation Precautions, taught [...] of the procedure. documented in this encounter [facility] 08-28-2021 Procedure note Handoff report given to MARCELA Mcleod. Jessica Cardoso 1965 [facility], A Member of [facility] OPERATIVE REPORT PATIENT NAME: Jessica Cardoso DATE OF : 1965 CSN: [id number] SURGEON: Wyatt Tapia MD, FACS DATE OF SERVICE: 08/28/2021 DATE OF SURGERY: 08/28/2021 PREOPERATIVE DIAGNOSIS: OA right hip (M16.11) POSTOPERATIVE DIAGNOSIS: OA right hip (M16.11) PROCEDURE: Primary Right Total Hip Arthroplasty utilizing the direct lateral approach (21799) Femoral Component: [employer] Avenir Complete Collarless Stem , High Offset Size: 6 Acetabular Component: G7 4 Hole Finned Acetabular Shell , 54mm Liner: G7 Vivacit-E Neutral, F, 36mm Screws: G7 Acetabular Screw(s) 6.5x30mm (-); Head Neck Unit: [employer] Ceramic Taper , 36mm , -3.5 ATTENDING SURGEON: Wyatt Tapia MD, FACS SUPERVISOR MOLD SHOP: Zafar Rivas PA-C INDICATIONS: Patient is a [...] tip of the greater trochanter. The fascia libyb is now incised along the line of [...] satisfactory position and alignment of the components. SUPERVISOR MOLD SHOP/ATTENDING PHYSICIAN: Zafar Rivas PA-C assisted with proper [...] He assisted with the dislocation of the bois forte hip, as well as dislocation/relocation of the [...] Wyatt Tapia MD, FACS on 08/28/2021 16:59:00 [facility], A Member of [facility] OPERATIVE REPORT PATIENT NAME: Jessica Cardoso DATE OF : 1965 CSN: [id number] SURGEON: Wyatt Tapia MD, FACS DATE OF SERVICE: 08/28/2021 DATE OF SURGERY: 08/28/2021 REF [id number] LOT [id number] G7 Finned Acetabular Shell 54MM SHELL SIZE F LINER SIZE Acetabular shell Use By 2031-04-19 () [id number] (17) [id number] REF [id number] LOT [id number] G7 Vivacit-E Size F 36.00 Millimeter Non-constrained polyethylene acetabular liner Use By 2026-07-03 () [id number] (04) [id number] REF [id number] LOT [id number] G7 ACETABULAR SCREW 6.5MM DIAMETER 30 SCREW LGTH Orthopaedic bone screw, non-bioabsorbable, sterile Use By 2031-06-02 () [id number] (10) [id number] REF [id number] LOT [id number] Avenir Complete Size 6 Coated hip femur prosthesis, modular Use By 2025-11-28 () [id number] 17) [id number] (76) [id number] REF [id number] LOT [id number] Biolox delta 36/-3.5 'S' BIOLOX DELTA, CERAMIC FEMORAL HEAD, S, 36/-3.5, TAPER 03/26 Use By 2031-05-22 (89) [id number] (66) [id number] (28) [id number] . documented in this encounter [facility] 08-28-2021 History and physical note History and Physical Update ( H&P completed within the previous thirty days ) I personally reviewed the History and Physical, interviewed and examined the patient prior to surgery. No changes have occurred in the patient's condition since the History and Physical was completed. documented in this encounter [facility] 08-26-2021 Hospital course Narrative Pre-Surgery Instructions: [...] ordered/prescribed by your pcplast dose 08/21 HYDROcodone-acetaminophen (Jasper) 5-325 mg per tablet Continue to take [...] prior to your surgery. Check in at receptionist desk [address] [place] [address]. If Outpatient, these additional instructions apply: An adult must stay with you the whole time you are here and drive you home. An adult must stay with you at home for 24 hours due to Anesthesia. If you have NEREIDA, you are required to stay 3 hours after your surgery before we can discharge you. 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 Staffing Anesthesiologist: Tiburcio Eisenberg MD TRANSFORMER INSPECTOR: Estefany Cook APRN.TRANSFORMER INSPECTOR Performed by: JIA Indications and Patient Condition Preoxygenated: yes Patient [...] attempts at approach: 1 SIGNATURE: Estefany Cook APRN.TRANSFORMER INSPECTOR PATIENT NAME: Jessica Cardoso DATE: March 29, 2021 TIME: 10:47 AM CSN: [id number] [facility] 12-28-2020 Note HNO ID: [id number] Author: Loren Boyd MD Service: General Surgery Author Type: Resident Type: Progress Notes Filed: 12/28/2020 7:46 AM Note Text: GENERAL SURGERY PROGRESS NOTE Jessica Cardoso [id number] ASSESSMENT AND PLAN 55 year old female [...] General Loren En Oliver PGY-1 General Surgery [facility] 12-27-2020 Note HNO ID: [id number] Author: Estefany Cook APRN.TRANSFORMER INSPECTOR Service: Anesthesiology Author Type: Nurse Watershed Coordinator Type: Anesthesia Procedure Notes Filed: 12/27/2020 1:57 [...] Imaging Guidance Used: No SIGNATURE: Estefany Cook APRN.TRANSFORMER INSPECTOR PATIENT NAME: Jessica Cardoso DATE: December 27, 2020 TIME: 1:57 PM CSN: [id number] [facility] 12-27-2020 Note HNO ID: [id number] Author: Estefany Cook APRN.TRANSFORMER INSPECTOR Service: Anesthesiology Author Type: Nurse Watershed Coordinator Type: Anesthesia Procedure Notes Filed: 12/27/2020 1:56 [...] SIGNATURE: Estefany Cook APRN.CRNA PATIENT NAME: Jessica Cardoso DATE: December 27, 2020 TIME: 1:54 PM CSN: [id number] [facility] 12-27-2020 Note HNO ID: [id number] Author: Estefany Cook APRN.TRANSFORMER INSPECTOR Service: Anesthesiology Author Type: Nurse Watershed Coordinator Type: Anesthesia Procedure Notes Filed: 12/27/2020 1:52 [...] SIGNATURE: Estefany Cook APRN.CRNA PATIENT NAME: Jessica Cardoso DATE: December 27, 2020 TIME: 1:50 PM CSN: [id number] [facility] Evaluation note Diagnosis Unilateral primary osteoarthritis, right hip documented in this encounter [facility] Discharge instructions* Attachments The following attachments cannot be sent through Care Everywhere. * Hip Replacement: Total: General Info (Luxembourgish) * Fall Prevention ([place]ux[place]ish) [facility]* Auth/Cert Specialty Diagnoses / Procedures Referred By Contac t Referred To Contact Diagnoses Unilateral primary osteoarthritis, right hip M16.11 Procedures VA ARTHROPLASTY ACETABULAR AND PROXIMAL FEMORAL PROSTHETIC REPLACEMENT (TOTAL HIP ARTHROPLASTY) WITH OR WITHOUT AUTOGRAFT OR ALLOGRAFT VA ARTHROPLASTY ACETABULAR AND PROXIMAL FEMORAL PROSTHETIC REPLACEMENT (TOTAL HIP ARTHROPLASTY) WITH OR WITHOUT AUTOGRAFT OR ALLOGRAFT Right total hip arthoplasty Wyatt Houston MD [address] [facility] [address] [place] [address] Referral ID Status Reason Start Date Expiration Date Visits Re quested Visits Authorized [id number] 07/01/2021 1 1 [facility] Summary Purpose Family History No Family History Records FoundNo Family History Records FoundNo Family History Records FoundNo Family History Records FoundNo Family History Records FoundNo Family History Records FoundNo Family History Records Found Advance Directives No Advanced Directives Records FoundDocuments on File Type Date Recorded Patient Clean Up Supervisor Expl anation Advance Directive(s) 03/13/2021 11:32 AM Advance Directive(s) 12/03/2020 2:46 PM Advance Directive(s) 10/05/2020 8:41 AM Documents on File Type Date Recorded Patient Clean Up Supervisor Expl anation Power of Head Of Marketing Analytics Additional Source Comments INFORMATION SOURCE (unrecogn ized section and content) DATE CREATED AUTHOR 07/08/2020 [facility] DATE CREATED AUTHOR AUTHOR'S ORGANIZ ATION 03/26/2021 [facility] DATE CREATED AUTHOR AUTHOR'S ORGANIZ ATION 04/11/2021 [facility] DATE CREATED AUTHOR AUTHOR'S ORGANIZ ATION 08/29/2021 [facility] DATE CREATED AUTHOR AUTHOR'S ORGANIZ ATION 07/26/2022 [facility] DATE CREATED AUTHOR AUTHOR'S ORGANIZ ATION 09/12/2023 [facility] DATE CREATED AUTHOR AUTHOR'S ORGANIZ ATION 10/31/2023 Seamus Mcintosh [facility] Source Comments (unrecognize d section and content) In the event this informatio n is protected by the Federal Confidentiality of Alcohol and Drug Abuse Patient Records regulations: The Federal rules restrict any use of the information to criminally investigate or prosecute any alcohol or drug abuse patient.[facility] Reason for Visit (unrecogniz ed section and content) Reason Onset Date Comments Refill Request 07/14/2021 Care Teams (unrecognized sec tion and content) Active Directory Specialist Relationship Specialty Start Date End Date Yaneth Garcia MD [address], [place] [phone] PCP - General Family Practice 10/05/20 Active Directory Specialist Relationship Specialty Start Date End Date Yaneth Garcia MD [address] [place] [address] PCP - General Family Medicine 08/05/21 Ordered [...] (only) 1434 (New Bag - Prov ider: Ellei Fleming RN) PRN Medication Order 08/26/2021 08/27/2021 [...] Recovery (only), 2nd Line Option: -ONLY give VA if patient is unable to take orally [...] Intraprocedure 1401 (Given - Provid er: Wyatt Tpaia MD - Comment: right hip) sodium chloride [...] Recovery (only)
2nd Line Option: -ONLY give VA if patient is unable to take orally [...] BE BASED ON THE PRIMARY CLINICAL RECORDS. [employer] [facility]. provides no warranty or guarantee of the accuracy or completeness of information in this document.
[2024-01-26 08:38] VITALS: BP 119/78; PULSE 80; TEMP 36; O2SAT 100
[2024-01-26] MEDS: 0.9 % SODIUM CHLORIDE 500 ML IV (08:45)
[2024-01-26] MEDS: BUPIVACAINE HCL 0.25% PF 25 MG/10 ML VIAL 4 ML INJ (09:37)
[2024-01-26] MEDS: LIDOCAINE HCL 2% 400 MG/20 ML MDV 6 ML INJ (09:37)
[2024-01-26] MEDS: METHYLPREDNISOLONE ACETATE 40 MG/ML VIAL INJ (09:38)
[2024-01-26 09:52] VITALS: BP 103/48; PULSE 83; TEMP 36.2; O2SAT 96
[2024-01-26 09:56] VITALS: BP 92/68; PULSE 80; TEMP 36.2; O2SAT 97
--- NOTE | 2024-01-26 09:58 | W.PM.PROCNOT ---
Date of procedure: 01/26/24 Pre-op diagnosis: Lumbar spondylosis Post-op diagnosis: same as pre-op Procedure: Left Lumbar 2/3, 4/5 Radiofrequency ablation Under fluoroscopic guidance Rhizotomy was created using radio frequency ablation at 80?C for 90 seconds 1 to 2 lesions created at each site. Post lesioning injection of 2 mL each of 0.25% Marcaine and 2% lidocaine with Depo-Medrol 40mg. 0.5 to 1 mL injected at each site IV in place yes If Intravenous fluids: NS at KVO Anesthesia local 2% lidocaine for Anesthesia Other: MAC Timeout process compliant After informed consent obtained.Patient brought to the procedure room placed in the prone position skin overlying the area was prepped and draped in a sterile fashion using betadine. 25 gauge needle was used to create a skin wheal over each of the targeted areas utilizing 2% lidocaine. A rhizotomy needle with a 10 mm active tip was inserted over each of the anesthetized areas and directed towards each of the medial branches accomplished under fluoroscopic guidance. after encountering the same we had positive sensory stimulation, negative motor stimulation was noted. lesions were then created. Post lesioning, steroid solution was injected needles removed. Patient was transferred to recovery room in stable condition to be discharged home after meeting criteria. Anesthesia: MAC Surgeon: Geoff Romero Condition: stable
== END 2024-01-26 10:15 | disposition home or self-care (01) ==
LOC: SURGOUT 08:04
PROVIDERS: PCP Family Medicine; Visit Provider Anesthesiology Pain Medicine
PROC: (CPT 1992; principal; 2024-01-26 09:10)
DX: M47.816 Spondylosis without myelopathy or radiculopathy, lumbar region (principal)
CPT/HCPCS: 64635; 64636; J0665; J1010; J2704

== ENCOUNTER 2024-02-03 08:17 | Outpatient (OUT) | payer MEDICAID, SELFPAY ==
--- OUTSIDE RECORDS SUMMARY | 2024-02-03 08:21 | XMS_ITS | CCD ---
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 Name Role Phone Yaneth Garcia MD Primary Care Provider [phone] WYATT TAPIA Admitting Unavailable WYATT TAPIA Attending [...] THERESA Consulting Unavailable LAKSHMIPATHY ., NARENDRANATH Attending Paluy vailable LAKSHMIPATHY ., NARENDRAÚLATH Admitting Pauly vailable HOY ., DR WOLFE Primary Care Unavailable LAKSHMIPATHY ., NARBRI Consulting Paluy vailable WAGNER ., THERESA Consulting Unavailable HOY [...] [CIPROFLOXACIN] Drug Allergy 10-19-2020 Unknown [facility] (2 sources) Ciprofloxacin Drug Allergy 08-17-2013 [facility] Repository Medications Current Medications Medication [...] Comment on above: Take 1 capsule by [facility] twice daily. Completed/Discontinued Medications Medication Drug [...] tablet by mouth three times daily HYDROcodone-acetaminophen ([place]) 5-325 mg per tablet Take 1 tablet [...] Facility Patient Letter FTon 2023 Patient Letter [facility] Patient Letter [facility] October 27, 2023 JESSICA CARDOSO [address] [place] [address] : 1965 Dear Jessica, This is a reminder that you are due for an appointment with [facility]. Please contact our office at [phone] to schedule your 5 year colon recall Thank you, [facility] [phone] Normal [facility] Covid-19 PCR (CVDTBH)on 03-13 SARS-CoV-2 (COVID-19) RNA HELLEN+probe Ql (Unsp spec) Not detected Normal NOT DETECTED [facility] Comment on above: Result Comment: [...] for this test is supported by the Harvest Worker of Health and Human Service's declaration that [...] be used). Performed By: #### C VDTBH ####[facility] [address] [place] [id number]. Bakari Isidro INFLUENZA A AND B AGon 03-28 INFLUANEGH SEE BELOW Normal [facility] Comment on above: Result Comment: Nega tive for Flu A protein angiten. Infection due to Flu A cannot be ruled out. Flu A angiten in the sample may be below the detection limit of the test. Performed By: #### I NFLUAB ####[facility] [address] [place] [id number] A Isidro INFLUBNEGH SEE BELOW Normal [facility] Comment on above: Result Comment: Nega tive for Flu B protein antigen. Infection due to Flu B cannot be ruled out. Flu B antigen in the sample may be below the detection limit of the test. Performed By: #### I NFLUAB ####[facility] [address] [place], [place] [address]Dg. Bakari Isidro INFLUENZA A AG Negative Normal NEGATIVE SEE COMMENT [facility] Comment on above: Performed By: #### I NFLUAB ####[facility] [address] [place], [place] [address]In. Bakari Isidro INFLUENZA B AG Negative Normal NEGATIVE SEE COMMENT [facility] Comment on above: Performed By: #### I NFLUAB ####[facility] [address] [place] [id number]. Bakari Isidro INTERNAL CONTROLS Within Normal Limits Normal Wi thin Normal Limits [facility] Comment on above: Performed By: #### I NFLUAB ####[facility] [address] [place] [id number]. Bakari Isidro Covid-19 PCR (CVDTB)on SARS-CoV-2 (COVID-19) RNA HELLEN+probe Ql (Unsp spec) Not detected Normal NOT DETECTED [facility] Comment on above: Result Comment: This test is not yet approved or cleared by the [place] FDA. When there are no FDA-approved or cleared tests available, and other criteria are met, FDA can make tests available under an emergency access mechanism called an Emergency Use Authorization (EUA). The EUA for this test is supported by the Harvest Worker of Health and Human Service's (HHS's) declaration [...] with SARS-CoV-2. Performed By: #### C VDTBH ####[facility] [address] [place] [id number]. Bakari Isidro Covid-19 PCR (CVDTB)on 01-12 SARS-CoV-2 (COVID-19) RNA HELLEN+probe Ql (Unsp spec) Not detected Normal NOT DETECTED [facility] Comment on above: Result Comment: This test is not yet approved or cleared by the [place] FDA. When there are no FDA-approved or cleared tests available, and other criteria are met, FDA can make tests available under an emergency access mechanism called an Emergency Use Authorization (EUA). The EUA for this test is supported by the Harvest Worker of Health and Human Service's (HHS's) declaration [...] with SARS-CoV-2. Performed By: #### C VDTB ####[facility] [address] [place], [place] [address]Uh. Bakari Isidro VIT D 25-[place] LABCORPon 2021 Vitamin D, 25-Hydroxy 60.1 ng/mL Normal 30.0-100.0 [facility] Comment on above: Result Comment: Traci min D deficiency has been defined by the [place] [employer] and an Endocrine Society practice guideline as a level of serum 25-OH vitamin D less than 20 ng/mL (1,2). The Endocrine Society went on to further define vitamin D insufficiency as a level between 21 and 29 ng/mL (2). 1. IOM ([place] [employer]). 2010. Dietary reference intakes for calcium and D. [place]: The National Academies Press. 2. Qi WILKINSON, Celeste LUIS, Debora CHOWDHURY, et al. Evaluation, treatment, and prevention of vitamin D deficiency: an Endocrine Society clinical practice guideline. JCEM. 2010; 96(7):1911-30. Performed By: #### V ITADLC #### [facility] [address] [place], [place] [address] Dr. Bakari Isidro CBC AUTO DIFFon 11-19-2021 BASO # 0.0 103/ul Normal 0.0-0.1 [facility] Comment on above: Performed By: #### C BC ####[facility] [address] [place] [address]DrJuan A Isidro Basophils/100 WBC (Bld) 0.5 % Normal 0.2-2.0 [facility] Comment on above: Performed By: #### C BC ####[facility] [address] [place] [address]Dr. Bakari Isidro EO # 0.1 103/ul Normal 0.0-0.7 [facility] Comment on above: Performed By: #### C BC ####[facility] [address] [place] [address]Dr. Bakari Isidro Eosinophils/100 WBC (Bld) 1.4 % Normal 0.9-7.0 [facility] Comment on above: Performed By: #### C BC ####[facility] [address] [place], [place] [address]Dr. Bakari Isidro Erythrocyte distribution width (RBC) [Ratio] 12.8 % Normal 11.0-15.0 [facility] Comment on above: Performed By: #### C BC ####[facility] [address] [place], [place] [address]Dr. Bakari Isidro Hematocrit (Bld) [Volume fraction] 43.2 % Normal 36.0-48.0 [facility] Comment on above: Performed By: #### C BC ####[facility] [address] [place], [place] [address]DrJuan A Isidro Hemoglobin (Bld) [Mass/Vol] 13.4 g/dL Normal 12.0-16.0 [facility] Comment on above: Performed By: #### C BC ####[facility] [address] [place], [place] [address]Dr. Bakari Isidro IG # 0.05 10e3/ul Critically high 0.00-0.03 [facility] Comment on above: Performed By: #### C BC ####[facility] [address] [place] [address]DrJuan A Bakari Isidro IG % 0.6 % Critically high 0.0-0.5 [facility] Comment on above: Performed By: #### C BC ####[facility] [address] [place] [address]DrJuan A Bakari Dwaine LYMPH # 1.6 103/ul Normal 1.2-3.8 [facility] Comment on above: Performed By: #### C BC ####[facility] [address] [place] [address]DrJuan A Bakari Dwaine Lymphocytes/100 WBC (Bld) 19.4 % Critically low 20.5-60.0 [facility] Comment on above: Performed By: #### C BC ####[facility] [address] [place], [place] [address]Dr. Ravenmaxx Isidro MANUAL DIFF REQ NO Normal [facility] Comment on above: Performed By: #### C BC ####[facility] [address] [place] [address]Dr. Bakari Dwaine MCH (RBC) [Entitic mass] 27.5 pg Normal 26.7-34.0 [facility] Comment on above: Performed By: #### C BC ####[facility] [address] [place] [address]Dr. Bakari Dwaine MCHC (RBC) [Mass/Vol] 31.0 g/dL Normal 29.9-35.2 [facility] Comment on above: Performed By: #### C BC ####[facility] [address] [place] [address]DrJuan A Bakari Dwaine MCV (RBC) [Entitic vol] 88.5 fL Normal 81.0-99.0 [facility] Comment on above: Performed By: #### C BC ####[facility] [address] [place], [place] [address]DrJuan A Ravenmaxx Isidro MONO # 0.6 103/ul Normal 0.3-0.8 [facility] Comment on above: Performed By: #### C BC ####[facility] [address] [place] [address]Dr. Bakari Isidro Monocytes/100 WBC (Bld) 7.2 % Normal 1.7-12.0 [facility] Comment on above: Performed By: #### C BC ####[facility] [address] [place] [address]Dr. Bakari Isidro NEUT # 6.0 103/ul Normal 1.4-6.5 [facility] Comment on above: Performed By: #### C BC ####[facility] [address] [place] [address]Dr. Bakari Isidro Neutrophils/100 WBC (Bld) 70.9 % Normal 43.0-75.0 [facility] Comment on above: Performed By: #### C BC ####[facility] [address] [place], [place] [address]Dr. Bakari Isidro Platelet mean volume (Bld) [Entitic vol] 9.5 fL Normal 9.5-13.5 [facility] Comment on above: Performed By: #### C BC ####[facility] [address] [place], [place] [address]Dr. Bakari Isidro PLT 236 103/ul Normal 150-450 [facility] Comment on above: Performed By: #### C BC ####[facility] [address] [place] [address]Dr. Bakari Isidro RBC 4.88 106/ul Normal 4.20-5.40 [facility] Comment on above: Performed By: #### C BC ####[facility] [address] [place] [id number]. Bakari Isidro WBC 8.5 103/ul Normal 4.0-11.0 [facility] Comment on above: Performed By: #### C BC ####[facility] [address] [place] [id number]. Bakari Dwaine FREE THYROXINE INDEX T7on FTI 2.27 Normal 1.30-4.50 [facility] Comment on above: Performed By: #### T SH, LIPID, CMP, T7 #### [facility] [address] [place] [address] [address] Bakari Isidro T3U 32.0 % Normal 30.0-39.0 [facility] Comment on above: Performed By: #### T SH, LIPID, CMP, T7 #### [facility] [address] [place] [address] [address] Bakari Isidro T4 [Mass/Vol] 7.10 ug/dL Normal 4.80-13.90 [facility] Comment on above: Performed By: #### T SH, LIPID, CMP, T7 #### [facility] [address] [place] [address] [address] Bakari Isidro GLYCOHEMOGLOBIN A1Con 2021 ADA RECOMMENDATION SEE BELOW Normal [facility] Comment on above: Result Comment: ADA RECOMMENDED LIMIT 4.0 - 6.0 ADA THERAPEUTIC TARGET < 7.0 ACTION SUGGESTED > 7.0 Performed By: #### A 1C #### [facility] [address] [place] [address] [address] Bakari Isidro Glucose [Mass/Vol] 105 mg/dL Normal [facility] Comment on above: Performed By: #### A 1C #### [facility] [address] [place] [address] [address] Bakari Isidro HbA1c (Bld) [Mass fraction] 5.3 % Normal 4.5-6.2 [facility] Comment on above: Performed By: #### A 1C #### [facility] [address] [place] [address] [address] Bakari Isidro IRONon 11-19-2021 Iron [Mass/Vol] 49.0 ug/dL Critically low 50.0-170.0 [facility] Comment on above: Performed By: #### I JOHAN B12FOL ####[facility] [address] [place], [place] [address]Dr. Bakari Isidro LIPID PROFILEon 11-19-2021 CHOL-HDL RATIO NORM SEE BELOW Normal [facility] Comment on above: Result Comment: 3.3 - 4.4 LOW RISK 4.4 - 7.1 AVERAGE RISK 7.1 - 11.0 MODERATE RISK >11.0 HIGH RISK Performed By: #### T SH, LIPID, CMP, T7 #### [facility] [address] [place] [address] [address] Bakari Isidro Cholesterol [Mass/Vol] 219 mg/dL Critically high <=200 [facility] Comment on above: Performed By: #### T SH, LIPID, CMP, T7 #### [facility] [address] [place] [address] [address] Bakari Isidro Cholesterol in HDL [Mass/Vol] 43 mg/dL Normal 40-60 [facility] Comment on above: Performed By: #### T SH, LIPID, CMP, T7 #### [facility] [address] [place] [address] Dr. Bakari Isidro Cholesterol in LDL [Mass/Vol] 147.0 mg/dL Normal [facility] Comment on above: Performed By: #### T SH, LIPID, CMP, T7 #### [facility] [address] [place] [address] Dr. Bakari Isidro Cholesterol.total /Cholesterol in HDL [Mass ratio] 5.1 {ratio} Normal [facility] Comment on above: Performed By: #### T SH, LIPID, CMP, T7 #### [facility] [address] [place] [address] Dr. Bakari Isidro HDL NORMAL > or = 60 mg/dl - LO W CARDIOVASCULAR RISK <40 mg/dl - HIGH CARDIOVASCULAR RISK Normal [facility] Comment on above: Performed By: #### T SH, LIPID, CMP, T7 #### [facility] [address] [place] [address] Dr. Bakari Isidro LDL CALC NORMAL SEE BELOW Normal [facility] Comment on above: Result Comment: <100 mg/dl OPTIMAL 100 - 129 mg/dl NEAR OR ABOVE OPTIMAL 130 - 159 mg/dl BORDERLINE HIGH 160 - 189 mg/dl HIGH >190 mg/dl VERY HIGH Performed By: #### T SH, LIPID, CMP, T7 #### [facility] [address] [place] [address] Dr. Bakari Isidro Triglyceride [Mass/Vol] 145 mg/dL Normal <=150 [facility] Comment on above: Performed By: #### T SH, LIPID, CMP, T7 #### [facility] [address] [place] [address] [address] Bakari Isidro VLDL CALC 29.0 mg/dL Normal [facility] Comment on above: Performed By: #### T SH, LIPID, CMP, T7 #### [facility] [address] [place] [address] [address] Bakari Isidro PROF 14(COMP METB)on 022 Albumin [Mass/Vol] 3.6 g/dL Normal 3.4-5.0 [facility] Comment on above: Performed By: #### T SH, LIPID, CMP, T7 #### [facility] [address] [place] [address] Dr. Bakari Isidro Albumin/Globulin [Mass ratio] 1.1 {ratio} Normal [facility] Comment on above: Performed By: #### T SH, LIPID, CMP, T7 #### [facility] [address] [place] [address] [address] Bakari Isidro ALP [Catalytic activity/Vol] 129 U/L Critically high 46-116 [facility] Comment on above: Performed By: #### T SH, LIPID, CMP, T7 #### [facility] [address] [place] [address] [address] Bakari Isidro ALT [Catalytic activity/Vol] 24 U/L Normal 14-59 [facility] Comment on above: Performed By: #### T SH, LIPID, CMP, T7 #### [facility] [address] [place] [address] [address] Bakari Isidro Anion gap [Moles/Vol] 15.7 mmol/L Normal [facility] Comment on above: Performed By: #### T SH, LIPID, CMP, T7 #### [facility] [address] [place] [address] [address] Bakari Isidro AST [Catalytic activity/Vol] 13 U/L Critically low 15-37 [facility] Comment on above: Performed By: #### T SH, LIPID, CMP, T7 #### [facility] [address] [place] [address] [address] Bakari Isidro Bilirubin [Mass/Vol] 0.3 mg/dL Normal 0.2-1.0 [facility] Comment on above: Performed By: #### T SH, LIPID, CMP, T7 #### [facility] [address] [place] [address] [address] Bakari Isidro Calcium [Mass/Vol] 9.0 mg/dL Normal 8.5-10.1 [facility] Comment on above: Performed By: #### T SH, LIPID, CMP, T7 #### [facility] [address] [place] [address] [address] Bakari Isidro Chloride [Moles/Vol] 105 mmol/L Normal 98-107 [facility] Comment on above: Performed By: #### T SH, LIPID, CMP, T7 #### [facility] [address] [place] [address] Dr. Bakari Isidro CO2 [Moles/Vol] 24.0 mmol/L Normal 21.0-32.0 [facility] Comment on above: Performed By: #### T SH, LIPID, CMP, T7 #### [facility] [address] [place] [address] [address] Bakari Isidro Creatinine [Mass/Vol] 0.55 mg/dL Normal 0.55-1.02 [facility] Comment on above: Performed By: #### T SH, LIPID, CMP, T7 #### [facility] [address] [place] [address] [address] Bakari Isidro EGFR-AF [place]ORE[place] >60 Normal >=60 [facility] Comment on above: Performed By: #### T SH, LIPID, CMP, T7 #### [facility] [address] [place] [address] [address] Bakari Isidro EGFR-NON AF [place]ORE[place] >60 Normal >=60 [facility] Comment on above: Performed By: #### T SH, LIPID, CMP, T7 #### [facility] [address] [place] [address] [address] Bakari Isidro Globulin (S) [Mass/Vol] 3.2 g/dL Normal [facility] Comment on above: Performed By: #### T SH, LIPID, CMP, T7 #### [facility] [address] [place] [address] [address] Bakari Isidro Glucose [Mass/Vol] 99 mg/dL Normal 74-106 [facility] Comment on above: Performed By: #### T SH, LIPID, CMP, T7 #### [facility] [address] [place] [address] [address] Bakari Isidro Potassium [Moles/Vol] 4.7 mmol/L Normal 3.5-5.1 [facility] Comment on above: Performed By: #### T SH, LIPID, CMP, T7 #### [facility] [address] [place] [address] Dr. Bakari Isidro Protein [Mass/Vol] 6.8 g/dL Normal 6.4-8.2 [facility] Comment on above: Performed By: #### T SH, LIPID, CMP, T7 #### [facility] [address] [place] [address] [address] Bakari Isidro Sodium [Moles/Vol] 140 mmol/L Normal 136-145 [facility] Comment on above: Performed By: #### T SH, LIPID, CMP, T7 #### [facility] [address] [place] [address] Dr. Bakari Isidro Urea nitrogen [Mass/Vol] 17.0 mg/dL Normal 7.0-18.0 [facility] Comment on above: Performed By: #### T SH, LIPID, CMP, T7 #### [facility] [address] [place] [address] Dr. Bakari Isidro Urea nitrogen/Creatini ne [Mass ratio] 30.9 mg/mg Normal [facility] Comment on above: Performed By: #### T SH, LIPID, CMP, T7 #### [facility] [address] [place] [address] Dr. Bakari Isidro TSHon 11-19-2021 TSH 0.483 uIU/mL Normal 0.358-3.740 [facility] Comment on above: Performed By: #### T SH, LIPID, CMP, T7 #### [facility] [address] [place], [place] [address] Dr. Bakari Isidro VIT B12 AND FOLATEon 022 Cobalamin (Vitamin B12) [Mass/Vol] 1350.0 pg/mL Critically high 193.0-986.0 [facility] Comment on above: Performed By: #### I JOHAN, B12FOL ####[facility] [address] [place], [place] [address]FkDr. Bakari Isidro FOLATE 23.50 ng/mL Normal 8.60-58.90 [facility] Comment on above: Performed By: #### I JOHAN B12FOL ####[facility] [address] [place], [place] [address]CaDr. Bakari Isidro Glucose Auto test strip (Bld ) [Mass/Vol]on 08-28-2021 Glucose [Mass/Vol] 85 mg/dL Normal 70-99 [facility] Comment on above: Performed By: #### 2 340-8 #### [facility] [address] [place] [address] Glucose [Mass/Vol] 85 mg/dL 70 - 99 mg/dL [facility] Interpretation and review of laboratory results Normal [facility] Glucose [Mass/Vol] 85 mg/dL Normal 70-99 [facility] Comment on above: Performed By: #### 2 340-8 #### [facility] [address] [place] [address] Glucose [Mass/Vol] 85 mg/dL 70 - 99 mg/dL [facility] Interpretation and review of laboratory results Normal [facility] XR PELVIS 1-2 VIEWSon 2021 XR PELVIS [...] Self Edit Transcribed Date: 08/28/2021 15:40 Normal [facility] XR Pelvis 1-2 Viewson 2021 Surgical changes [...] By: Self Edit Transcribed Date: 08/28/2021 15:40 [facility] Radiology Study observation (narrative) [facility] XR Pelvis 1-2 ViewsOrdered B y: Sina Nguyen on 08-28-2021 [employer] Work Phone: Covid-19 PCR (CVDTB)on 08-11 SARS-CoV-2 (COVID-19) RNA HELLEN+probe Ql (Unsp spec) Not detected Normal NOT DETECTED [facility] Comment on above: Result Comment: This test is not yet approved or cleared by the [place] FDA. When there are no FDA-approved or cleared tests available, and other criteria are met, FDA can make tests available under an emergency access mechanism called an Emergency Use Authorization (EUA). The EUA for this test is supported by the Harvest Worker of Health and Human Service's (HHS's) declaration [...] SARS-CoV-2. Performed By: #### C VDTB #### [facility] Laboratory [address] [place], [place] [address] Dr. Bakari Isidro Basic metabolic 2000 panelon 08-02-2021 Anion gap [Moles/Vol] 10 mmol/L Normal -18 [facility] Comment on above: Performed By: #### 2 4321-2 #### [facility] [address] [place] [address] Calcium [Mass/Vol] 9.6 mg/dL Normal 8.9-10.3 [facility] Comment on above: Performed By: #### 2 4321-2 #### [facility] [address] [place] [address] Chloride [Moles/Vol] 103 mmol/L Normal 98-107 [facility] Comment on above: Performed By: #### 2 4321-2 #### [facility] [address] [place] [address] CO2 [Moles/Vol] 27 mmol/L Normal 22-32 [facility] Comment on above: Performed By: #### 2 4321-2 #### [facility] [address] [facility] [address] Creatinine [Mass/Vol] 0.60 mg/dL Normal 0.60-1.30 [facility] Comment on above: Performed By: #### 2 4321-2 #### [facility] [address] [facility] [address] GFR/1.73 sq M.predicted among non-blacks MDRD (S/P/Bld) [Vol rate/Area] 101 mL/min/{1.73_m2} Normal [facility] Comment on above: Performed By: #### 2 4321-2 #### [facility] [address] [facility] [address] Glucose [Mass/Vol] 86 mg/dL Normal 70-99 [facility] Comment on above: Performed By: #### 2 4321-2 #### [facility] [address] [facility] [address] Potassium [Moles/Vol] 4.5 mmol/L Normal 3.6-5.1 [facility] Comment on above: Performed By: #### 2 4321-2 #### [facility] [address] [place] [address] Sodium [Moles/Vol] 140 mmol/L Normal 136-145 [facility] Comment on above: Performed By: #### 2 4321-2 #### [facility] [address] [place] [address] Urea nitrogen [Mass/Vol] 28 mg/dL High 8-20 [facility] Comment on above: Performed By: #### 2 4321-2 #### [facility] [address] [place] [address] Urea nitrogen/Creatini ne [Mass ratio] 46.7 mg/mg High 12.0-20.0 [facility] Comment on above: Performed By: #### 2 4321-2 #### [facility] [address] [place] [address] Hemogram and platelets WO di fferential panel (Bld)on 08-02-2021 Basophils (Bld) [#/Vol] 0.10 10*3/uL Normal 0.00-0.20 [facility] Comment on above: Performed By: #### 2 4317-0 #### [facility] [address] [place] [address] Basophils/100 WBC (Bld) 0.6 % Normal 0.0-2.0 [facility] Comment on above: Performed By: #### 2 4317-0 #### [facility] [address] [place] [address] Eosinophils (Bld) [#/Vol] 0.10 10*3/uL Normal 0.00-0.70 [facility] Comment on above: Performed By: #### 2 4317-0 #### [facility] [address] [place] [address] Eosinophils/100 WBC (Bld) 1.6 % Normal 0.0-7.0 [facility] Comment on above: Performed By: #### 2 4317-0 #### [facility] [address] [place] [address] Erythrocyte distribution width (RBC) [Ratio] 13.8 % Normal 11.0-14.8 [facility] Comment on above: Performed By: #### 2 4317-0 #### [facility] [address] [place] [address] Hematocrit (Bld) [Volume fraction] 40.1 % Normal 35.0-45.0 [facility] Comment on above: Performed By: #### 2 4317-0 #### [facility] [address] [place] [address] Hemoglobin (Bld) [Mass/Vol] 13.1 g/dL Normal 12.0-16.0 [facility] Comment on above: Performed By: #### 2 4317-0 #### [facility] [address] [place] [address] Lymphocytes (Bld) [#/Vol] 1.80 10*3/uL Normal 1.00-4.80 [facility] Comment on above: Performed By: #### 2 4317-0 #### [facility] [address] [place] [address] Lymphocytes/100 WBC (Bld) 22.7 % Normal 22.0-44.0 [facility] Comment on above: Performed By: #### 2 4317-0 #### [facility] [address] [place] [address] MCH 28.1 pcg Normal 27.0-34.0 [facility] Comment on above: Performed By: #### 2 4317-0 #### [facility] [address] [place] [address] MCHC (RBC) [Mass/Vol] 32.7 g/dL Normal 32.0-36.0 [facility] Comment on above: Performed By: #### 2 4317-0 #### [facility] [address] [place] [address] MCV (RBC) [Entitic vol] 86.0 fL Normal 80.0-97.0 [facility] Comment on above: Performed By: #### 2 4317-0 #### [facility] [address] [place] [address] Monocytes (Bld) [#/Vol] 0.50 10*3/uL Normal 0.00-0.90 [facility] Comment on above: Performed By: #### 2 4317-0 #### [facility] [address] [place] [address] Monocytes/100 WBC (Bld) 6.3 % Normal 0.0-12.0 [facility] Comment on above: Performed By: #### 2 4317-0 #### [facility] [address] [place] [address] Neutrophils Absolute 5.30 K/mcL Normal 1.80-7.70 [facility] Comment on above: Performed By: #### 2 4317-0 #### [facility] [address] [place] [address] Neutrophils/100 WBC (Bld) 68.8 % Normal 40.0-70.0 [facility] Comment on above: Performed By: #### 2 4317-0 #### [facility] [address] [place] [address] Platelet mean volume (Bld) [Entitic vol] 8.6 fL Normal 6.2-12.1 [facility] Comment on above: Performed By: #### 2 4317-0 #### [facility] [address] [place] [address] Platelets (Bld) [#/Vol] 290 10*3/uL Normal 142-424 [facility] Comment on above: Performed By: #### 2 4317-0 #### [facility] [address] [place] [address] RBC (Bld) [#/Vol] 4.66 10*6/uL Normal 3.80-5.10 [facility] Comment on above: Performed By: #### 2 4317-0 #### [facility] [address] [place] [address] WBC (Bld) [#/Vol] 7.8 10*3/uL Normal 4.6-10.2 [facility] Comment on above: Performed By: #### 2 4317-0 #### [facility] [address] [place] [address] Nuclear IgG IA Ql (S)on 07-13 Bacteria identified Cx Nom (U) 1 ORGANISM 202 Abnormal >725850 CFU/mL Escherichia coli The organism value for [...] Islt <=20 ug/ml Susceptible Invalid Interpretation Code [facility] Comment on above: Performed By: #### 2 9950-3 #### [facility] [address] [place] [address] Bacteria, Urine Moderate Abnormal None [facility] Comment on above: Performed By: #### 2 9950-3 #### [facility] [place] [facility] [address] [place] [address] Calcium Oxalate Crystals, Urine Occasional Abnormal None [facility] Comment on above: Performed By: #### 2 9950-3 #### [facility] [address] [place] [address] RBC, Urine None Seen Normal 0-5 [facility] Comment on above: Performed By: #### 2 9950-3 #### [facility] [place] [facility] [address] [place] [address] WBC, Urine 0-5 Normal 0-5 [facility] Comment on above: Performed By: #### 2 9950-3 #### [facility] [place] [facility] [address] [place] [address] OPERATIVE NOon 04-10-2021 OPERATIVE NO HNO ID: [id number] Author: Paul Odonnell MD Service: General Surgery Author Type: Physician Type: Operative Report Filed: 04/10/2021 11:55 AM Note Text: [facility] - Operative Report JESSICA CARDOSO : 1965 AGE: 55. SEX: F PATIENT TYPE: I HOSP SVC: GENS LOCATION: [facility] ATTENDING PHYSICIAN: Paul Odonnell MD CSN NUMBER: [id number] DATE OF SURGERY/PROCEDURE: 03/29/2021 INCISION/PROCEDURE START TIME: 10:33 AM INCISION CLOSE/PROCEDURE END TIME: 11:30 AM PREOPERATIVE DIAGNOSIS: 1. Morbid obesity with a BMI of 45. 2. Hyperlipidemia. 3. Hypertension. 4. Obstructive sleep apnea. POSTOPERATIVE DIAGNOSIS: 1. Morbid obesity with a BMI of 45. 2. Hyperlipidemia. 3. Hypertension. 4. Obstructive sleep apnea. SURGEON: Paul Odonnell MD MAINS AND SERVICE SUPERVISOR: Pb Upton MD SURGERY/PROCEDURE: 1. Laparoscopic sleeve [...] any posterior hiatal hernia was noted. A 36-Icelandic bougie was passed in the stomach. Multiple [...] in throughout the operation. Paul Odonnell MD TA:[id number] [facility] 03-31-2021 [facility] HNO ID: [id number] Author: Titus Colon MD Service: General Surgery [...] Center 04/11/2021 4:10 PM Paul Odonnell MD [id number] [facility] 05/01/2021 9:00 AM Barbara Martines, PhD GSPSMN [facility] 05/09/2021 4:00 PM Paul Odonnell MD [id number] [facility] 05/10/2021 2:30 PM [facility]'s risk for 30-day readmission is [...] of this (more content not included)... Normal [facility] NURSING PROGon 03-31-2021 NURSING PROG HNO ID: [id number] Author: Deepika Porras RN Service: ? Author [...] This note was completed by: Deepika Porras [facility] 03-30-2021 [facility] HNO ID: [id number] Author: Titus Colon MD Service: General Surgery [...] Center 04/11/2021 4:10 PM Paul Odonnell MD [id number] [facility] 05/01/2021 9:00 AM Barbara Martines, PhD GSPSMN [facility] 05/09/2021 4:00 PM Paul Odonnell MD [id number] [facility] 05/10/2021 2:30 PM ROSALIND Mo M dg The patient's risk for 30-day readmission is determined using the following contributing factors: Pt variables contributing to increased readmission risk: 25 Most Recent BUN Result 13 Active Medication Orders 1 Insurance - Medicaid 1 Active (more content not included)... Normal [facility] CONSULTon 03-30-2021 CONSULT HNO ID: [id number] Author: Clifton Forde MD Service: General Surgery Author Type: Resident Type: Consults Filed: 03/30/2021 8:27 AM Note Text: PROGRESS NOTES - SURGICAL SERVICES Jessica Cardoso [id number] ASSESSMENT/PLAN: 55 year old year old female [...] Yamilex Forde MD PGY-2 General Surgery Surgery [place] Team [phone] weekdays. Or [phone] weeknights (6pm - 6am) and weekends. SUBJECTIVE [...] 03/29/21699 - 03/30/2165803/30/21699 - 03/31/21 0659 Shift 2266-9903 4197-6250 7502-6373 24 Hour Total 3541-5715 1010-7030 5983-7912 24 Hour Total INTAKE PO 200 150 350 PO 200 150 350 IV 1150 1150 Volume (mL) (ceFAZolin iv piggyback 2 g in D5W (iso-osmotic) 100 mL (ANCEF)) 100 100 Volume (mL) (magnesium sulfate 2 g in NaCl 0.9% 100 mL) 100 100 Volume (mL) (lactated ringers iv infusion) 950 950 Shift Total 3409 533 3112 OUTPUT Urine 200 400 600 Void (ml) [...] NURSING PROGon 03-30-2021 NURSING PROG HNO ID: [id number] Author: Theresa Rosas RN Service: ? Author [...] [facility] NURSING PROG HNO ID: [id number] Author: Cookie Capellan RN Service: ? Author Type: Registered Nurse Type: Nursing Progress Note Filed: 03/30/2021 3:41 AM Note Text: Nursing Progress Note Patient Name: Jessica Cardoso Patient Location: [place] [address]/[address] Daily Note: 0339: Pt's HR tachy at rest, this RN witnessed it as high as 112. Temp 99.3 F. Text page sent to [facility] to inform. This note was completed by: Cookie Capellan [facility] ANES POSTPROC EVALon 021 ANES POSTPROC EVAL HNO ID: [id number] Author: Gary Acosta MD Service: Anesthesiology Author [...] March 29, 2021 TIME: 12:15 PM CSN: [id number] [facility] ANES PRE-OPon 03-29-2021 ANES PRE-OP HNO ID: [id number] Author: Tiburcio Eisenberg MD Service: Anesthesiology Author [...] March 29, 2021 TIME: 9:34 AM CSN: [id number] [facility] BRIEF OP NOTon 03-29-2021 BRIEF OP NOT HNO ID: [id number] Author: Pb Upton MD Service: General Surgery Author Type: Resident Type: Brief Op Note Filed: 03/29/2021 12:27 PM Note Text: BRIEF OPERATIVE NOTE [facility] LOG ID: [id number] SURGERY/PROCEDURE DATE: 03/29/2021 INCISION/PROCEDURE START TIME: 10:33 AM INCISION CLOSE/PROCEDURE END TIME: 11:30 AM SURGEON(S) AND MAINS AND SERVICE SUPERVISOR(S): Surgeon(s) and Role: * Paul Odonnell MD [...] NURSING PROGon 03-29-2021 NURSING PROG HNO ID: [id number] Author: Deena Atkinson RN Service: ? Author [...] None Electronically Signed By: Deena Atkinson [facility] SURGICAL PATHOLOGYon 021 SURGICAL PATHOLOGY Specimen originated from [facility] Specimen #: [id number] Submitting Physician: PAUL ODONNELL MD FINAL DIAGNOSIS [...] The serosal surface is kruse-pink and smooth. Jewelry Maker sections are submitted in four cassettes. / 03/29/2021 Gross examination performed at [facility], [address] [place] [address] Date of Report: 04/02/2021 Date of Procedure: 03/29/2021 Date of Receipt: 03/29/2021 Submitted by: PAUL ODONNELL MD Location: [facility] Diagnostic interpretation performed at [facility], [address] [place] [address]. CLIA Number: [id number] Normal [facility] THERAPY NTon 03-29-2021 THERAPY NT HNO ID: [id number] Author: Tete Knapp RRT Service: Respiratory Therapy Author Type: Respiratory Therapist Type: Therapy (PT/OT/Speech/Resp) Filed: 03/29/2021 4:24 PM Note Text: Patient does not wear CPAP at home. No unit in the room. Tete Knapp RRT Normal [facility] HISTORY PHYSICALon HISTORY PHYSICAL HNO ID: [id number] Author: Deanna Bourne PA-C Service: ? Author Type: Physician Painter And Grader Cork Type: HANDP Filed: 03/26/2021 8:17 AM Note [...] fevers. Neuro: No history of TIA's, stroke, NANOTECHNICIAN tumor, impaired sensorium, hemiplegia, paraplegia or quadraplegia. No neurological symptoms or problems. Respiratory: No history of current cough or dyspnea, or pneumonia in the past 6 weeks. No history of respiratory/pulmonary symptoms or problems. Cardiovascular: No history of HTN requiring medication, no history of angina, CHF, NM, cardiac surgery or stents. Denies rest pain, gangrene or revascularization/amputation for PVD. No history of cardiovascular symptoms or problems. GI: Positive for GERD, Negative for Nausea, Vomiting, Abdominal pain, Difficulty swallowing, GI bleed < 30 days : No history of dysuria, frequency or incontinence,, stones or chronic kidney disease DAIRY EQUIPMENT SPECIALIST: Negative for abnormal vaginal bleeding, abnormal vaginal [...] history of (more content not included)... Normal [facility] Type and SCR (30D)on 021 ABO/RH(D) Positive Normal [facility] Comment on above: Performed By: #### T SCR30 ####[place] [id number] Basic Metabolic Panlon 12-28 Anion gap [Moles/Vol] 11 mmol/L Normal 9-18 [facility] Comment on above: Performed By: #### C BC, BMP #### [place] [phone] Calcium [Mass/Vol] 8.7 mg/dL Normal 8.5-10.5 [facility] Comment on above: Performed By: #### C BC, BMP #### [address] Chloride [Moles/Vol] 107 mmol/L Normal 98-110 [facility] Comment on above: Performed By: #### C BC, BMP #### [place] [phone] CO2 [Moles/Vol] 23 mmol/L Normal 23-32 [facility] Comment on above: Performed By: #### C BC, BMP #### [place] [phone] Creatinine [Mass/Vol] 0.52 mg/dL Low 0.70-1.40 [facility] Comment on above: Performed By: #### C BC, BMP #### [place] [phone] eGFR- Amer. >60 Normal >60 [facility] Comment on above: Performed By: #### C BC, BMP #### [place] [phone] eGFR-All Other Races >60 Normal >60 [facility] Comment on above: Result Comment: eGFR [...] Performed By: #### C ADRIAN, BMP #### [place] [phone] Glucose [Mass/Vol] 106 mg/dL High 65-100 [facility] Comment on above: Performed By: #### C ADRIAN, BMP #### [place] [phone] Potassium [Moles/Vol] 4.0 mmol/L Normal 3.5-5.0 [facility] Comment on above: Performed By: #### C ADRIAN, BMP #### [phone] Sodium [Moles/Vol] 141 mmol/L Normal 132-148 [facility] Comment on above: Performed By: #### C ADRIAN, BMP #### [phone] Urea nitrogen [Mass/Vol] 11 mg/dL Normal 8-25 [facility] Comment on above: Performed By: #### C ADRIAN, BMP #### [phone] CBCon 12-28-2020 Absolute nRBC <0.01 Normal <0.01 [facility] Comment on above: Performed By: #### C BC, BMP #### [place] [phone] Erythrocyte distribution width (RBC) [Ratio] 12.5 % Normal 11.5-15.0 [facility] Comment on above: Performed By: #### C ADRIAN, BMP #### [place] [phone] Hematocrit (Bld) [Volume fraction] 37.7 % Normal 36.0-46.0 [facility] Comment on above: Performed By: #### C BC, BMP #### [place] [address] Hemoglobin (Bld) [Mass/Vol] 12.1 g/dL Normal 11.5-15.5 [facility] Comment on above: Performed By: #### C ADRIAN, BMP #### [place] [address] MCH 28.1 pG Normal 26.0-34.0 [facility] Comment on above: Performed By: #### C ADRIAN, BMP #### [place] [address] MCHC (RBC) [Mass/Vol] 32.1 g/dL Normal 30.5-36.0 [facility] Comment on above: Performed By: #### C ADRIAN, BMP #### [place] [phone] MCV (RBC) [Entitic vol] 87.7 fL Normal 80.0-100.0 [facility] Comment on above: Performed By: #### C ADRIAN, BMP #### [place] [address] Platelet mean volume (Bld) [Entitic vol] 9.6 fL Normal 9.0-12.7 [facility] Comment on above: Performed By: #### C BC, BMP #### [place] [address] Platelets (Bld) [#/Vol] 226 10*3/uL Normal 150-400 [facility] Comment on above: Performed By: #### C ADRIAN, BMP #### [address] [address] RBC (Bld) [#/Vol] 4.30 10*6/uL Normal 3.90-5.20 [facility] Comment on above: Performed By: #### C BC, BMP #### [facility] [address] [place] [address] WBC (Bld) [#/Vol] 8.65 10*3/uL Normal 3.70-11.00 [facility] Comment on above: Performed By: #### C BC, BMP #### [facility] [address] [place] [address] CNDSon 12-28-2020 CNDS HNO ID: [id number] Author: Loren Boyd MD Service: General Surgery Author Type: Resident Type: Discharge Summary Filed: 12/28/2020 7:54 AM Note Text: Attestation signed by Jesus Lobato MD at 12/28/2020 10:00 AM Uncomplicated stay for right adrenalectomy Jesus Lboato MD GENERAL SURGERY DISCHARGE SUMMARY PATIENT NAME: [...] was uncomplicated. Patient was then returned to [facility] where her post-op recovery was essentially [...] NURSING PROGon 12-28-2020 NURSING PROG HNO ID: [id number] Author: Maicol Monae RN Service: ? Author [...] [facility] NURSING [facility] HNO ID: [id number] Author: Maicol Monae RN Service: ? Author [...] [facility] ANES POSTPROC EVALon ANES POSTPROC EVAL HNO ID: [id number] Author: Donnell Chicas MD Service: Anesthesiology Author [...] December 27, 2020 TIME: 4:54 PM CSN: [id number] [facility] ANES PRE-OPon 12-27-2020 ANES PRE-OP HNO ID: [id number] Author: Abilio Hansen DO Service: Critical Care [...] December 27, 2020 TIME: 9:06 AM CSN: [id number] [facility] BRIEF OP NOTon 12-27-2020 BRIEF OP NOT HNO ID: [id number] Author: Kadi Flanagan MD Service: General Surgery Author Type: Resident Type: Brief Op Note Filed: 12/27/2020 3:28 PM Note Text: Attestation signed by Jesus Lobato MD at 12/27/2020 3:37 PM [id number] Jesus Lobato MD BRIEF OPERATIVE / PROCEDURE NOTE LOG ID: [id number] Surgery/Procedure Date: 12/27/2020 Incision/Procedure Start Time: 1:31 PM Incision Close/Procedure End Time: 3:13 PM Surgeon(s)/Proceduralist(s) and Painter And Grader Cork(s): Surgeon(s) and Role: * Jesus Lobato MD [...] December 27, 2020 TIME: 3:27 PM Normal [facility] Confirm Blood Typeon 021 ABO/RH(D) Positive [facility] Comment on above: Performed By: #### C ONABO ####[facility] [place], [place] [phone] HISTORY PHYSICALon HISTORY PHYSICAL HNO ID: [id number] Author: Kadi Flanagan MD Service: General Surgery [...] DATE: December 27, 2020 TIME: 9:[address] [facility] NURSING PROGon 12-27-2020 NURSING PROG HNO ID: [id number] Author: Barbara Calix RN Service: Nursing Author Type: Registered Nurse Type: Nursing Progress Note Filed: 12/27/2020 8:02 PM Note Text: Nursing Progress Note Patient Name: Jessica Cardoso Patient Location: [facility]/ Daily Note: 1745 Received patient from PACU, alert, Abdominal Stab sites intact. Up to bathroom with contact guard, gait steady. This note was completed by: Barbara Calix [facility] NURSING PROG HNO ID: [id number] Author: Valencia Abdul RN Service: Nursing Author Type: Registered Nurse Type: Nursing Progress Note Filed: 12/27/2020 8:44 AM Note Text: PATIENT EDUCATION TOPIC: PROCEDURE / SURGERY: Pre-op Teaching: Logistics PATIENT NAME: Jessica Cardoso PATIENT LOCATION: [facility] OR POOL READINESS TO LEARN COGNITIVE ABILITY: [...] OPERATIVE NOon 12-27-2020 OPERATIVE NO HNO ID: [id number] Author: Jesus Lobato MD Service: General Surgery Author Type: Physician Type: Operative Report Filed: 12/28/2020 10:33 AM Note Text: [facility] - Operative Report JESSICA CARDOSO : 1965 AGE: 55. SEX: F PATIENT TYPE: I HOSP SVC: GENS LOCATION: [id number] ATTENDING PHYSICIAN: Jesus Lobato M.D. CSN NUMBER: [id number] DATE OF SURGERY/PROCEDURE: 12/27/2020 INCISION/PROCEDURE START TIME: 1:31 PM INCISION CLOSE/PROCEDURE END TIME: 3:13 PM PREOPERATIVE DIAGNOSIS: Indeterminate right adrenal mass, nonfunctional. POSTOPERATIVE DIAGNOSIS: Indeterminate right adrenal mass, nonfunctional. SURGEON: Jesus Lobato M.D. MAINS AND SERVICE SUPERVISOR: Adrien Flanagan MD. SURGERY/PROCEDURE: Laparoscopic right adrenalectomy. [...] this procedure with assistance. Jesus Lobato M.D. JRG:[id number] Normal [facility] SURGICAL PATHOLOGYon 021 SURGICAL PATHOLOGY Specimen originated from [facility] Specimen #: [id number] Submitting Physician: Jesus Lobato M.D. FINAL DIAGNOSIS [...] cortical tissue and virtually no medullary component. Jewelry Maker sections are submitted as follows: A1-A6 adrenal mass, A7 uninvolved adrenal parenchyma. ZEV/arely 12/28/2020 Gross examination performed at [place] [address] Date of Report: 01/01/2021 Date of Procedure: 12/27/2020 Date of Receipt: 12/27/2020 Submitted by: Jesus Lobato M.D. Location: [facility] Diagnostic interpretation performed at [place] [address]. CLIA Number: [id number] Normal [facility] Type and SCR (30D)on 021 ABO/RH(D) Positive Normal [facility] Comment on above: Performed By: #### T SCR30 ####[address] [phone] HISTORY PHYSICALon HISTORY PHYSICAL HNO ID: [id number] Author: Shade Hilton MD Service: General Surgery [...] 19, 2020 TIME: 9:50 AM PAGER/CONTACT #: [phone] [facility] NURSING PROGon 10-19-2020 NURSING PROG HNO ID: [id number] Author: Maris Caruso RN Service: ? Author [...] PATHOLOGYon 021 SURGICAL PATHOLOGY Specimen originated from [facility] Specimen #: [id number] Submitting Physician: Jesus Lobato M.D. FINAL DIAGNOSIS [...] cassette. Gross examination performed at [facility], [address] [place], [place] [id number] 10/19/2020 5:46:23 PM Date of Report: 10/22/2020 Date of Procedure: 10/19/2020 Date of Receipt: 10/19/2020 Submitted by: Jesus Lobato M.D. Location: [facility] Diagnostic interpretation performed at [facility], [address] [place] [address]. [place] Number: [id number] Normal [facility] [facility] COVID-19 Antigenon COVID-19 Antigen Results called at [...] its performance Maryellen Disclaimer characteristic determined by [facility] and Maryellen Disclaimer validated at [facility]. This Maryellen Disclaimer test has not [...] is terminated or revoked sooner. PERFORMED BY: [place] [address] PATHOLOGIST TRICHOLOGIST DAVID THOMAS M.D. Normal [facility] Comment on above: Performed By: #### S OFIAPOS, COVID-19 MARYELLEN #### [facility] [address] [place] [address] Maryellen Ag Positiveon 06-26-19 21 Maryellen Ag Positive Positive Normal Negative [facility] Comment on above: Result Comment: This is a duplicate Maryellen SARS Antigen (ZARINA) result to be used for statistical tracking purpose only. PERFORMED BY: [place] [address] PATHOLOGIST TRICHOLOGIST DAVID THOMAS M.D. Performed By: #### S OFIAPOS, COVID-19 MARYELLEN #### [place] [id number] [facility] Vital Signs Date Time Vital Sign Value Performing Clinician Lidiai belén 08-28-2021 16:04-0400 SaO2% (BldA) [Mass fraction] 96 % Wyatt Tapia MD Work Phone: [facility] 08-28-2021 15:56-0400 Body temperature 97.81 [degF] Wyatt Tapia MD Work Phone: [facility] 08-28-2021 15:56-0400 Diastolic blood pressure 85 mm[Hg] Wyatt Tapia MD Work Phone: [facility] 08-28-2021 15:56-0400 Heart rate 99 /min Wyatt Tapia MD Work Phone: [employer] 08-28-2021 15:56-0400 Respiratory rate 14 /min Wyatt Tapia MD Work Phone: [employer] 08-28-2021 15:56-0400 Systolic blood pressure 137 mm[Hg] Wyatt Tapia MD Work Phone: [employer] 08-28-2021 11:00-0400 Body mass index (BMI) [Ratio] 38.52 kg/m2 Wyatt Tapia MD Work Phone: [employer] 08-28-2021 11:00-0400 Body weight 101.8 kg Wyatt Tapia MD Work Phone: [employer] 08-26-2021 10:00-0400 Body height 162.6 cm Wyatt Tapia MD Work Phone: [facility] Encounters Encounter Date Encounter Type Care Provider Facility Start: 10-16-2022 ambulatory NARENDRANATH LAKSHMIPATHY . Facility:[facility] Start: 07-29-2022 ambulatory NARENDRANATH LAKSHMIPATHY . Facility:[facility] Start: 07-24-2022 End: 07-25-2022 ambulatory NARENDRANATH LAKSHMIPATHY . Facility:[facility] Start: 07-03-2022 End: 07-04-2022 ambulatory NARENDRANATH LAKSHMIPATHY . Facility:[facility] Start: 05-01-2022 End: 05-02-[address] KAITLIN WILHELM . Facility:[facility] Start: 04-22-2022 Encounter for preprocedural laboratory examination DR KAITLIN WILHELM . [facility] Start: 04-01-2022 End: 04-01-[address] YANETH [...] without abnormal findings DR YANETH GARCIA . [facility] Start: 11-19-2021 End: 11-20-[address] YANETH GARCIA . Facility:[facility] Start: 11-19-2021 End: 11-20-2021 Encounter for general adult medical examination without abnormal findings DR YANETH GARCIA . Facility:[facility] Start: 10-10-2021 End: 10-11-[address] KAITLIN WILHELM . Facility:[facility] Start: 08-30-2021 End: 09-28-[address] DOCTOR THOMAS Facility:[facility] Start: 08-28-2021 End: 08-28-2021 ambulatory WYATT TAPIA [facility] Start: 08-28-2021 End: 08-28-2021 Evaluation and management of inpatient Wyatt Tapia MD Work Phone: [facility] Start: 08-28-2021 End: 08-28-2021 Subsequent hospital visit by physician Wyatt Tapia MD Work Phone: [facility] Start: 08-26-2021 End: 08-27-[address] DOCTOR THOMAS Facility:[facility] Start: 07-14-2021 Refill Paul Odonnell MD Work Phone: General Surgery Comment on above: Refill Request Start: 05-10-2021 End: 05-10-2021 ambulatory PAUL ODONNELL Facility:[facility] Procedures Date Procedure Procedure Detail Performing Clinician Start: 08-28-2021 POCT GLUCOSE BLOOD Bita Tapia MD Work Phone: Start: 08-28-2021 Radiologic examinati on pelvis 1/2 views Zafar ACOSTA Work Phone: Start: 08-28-2021 POCT GLUCOSE BLOOD Bita Tapia MD Work Phone: Start: 03-22-2021 Antibody screen Comment on above: Performed By: #### T SCR30 ####[facility] [place], [place] [phone] Start: 12-14-2020 Antibody screen Comment on above: Performed By: #### T SCR30 ####[place] [id number] [place], [place] [phone] Plan of Treatment Date Care Activity Detail Author Start: 12-14-2025 LIPID SCREEN LIPID SCREEN [facility] Start: 03-22-2024 DIABETES SCREEN DIABETES SCREEN [facility] Start: 08-02-2022 Hypertension/CHF/CAD Annual BMP Blood Test Hypertension/CHF/CAD Annual BMP Blood Test [employer] Start: 08-28-2021 End: 08-28-2021 Arthrp acetblr/prox fem prostc agrft/algrft ARTHROPLASTY HIP TOTAL Unilateral primary osteoarthritis, right hip 08/28/2021 12:57 PM EDT [facility] Start: 07-01-2021 Adolescent depression screening assessment Depression Screening [employer] Start: 07-01-2021 Hepatitis C screening Hepatitis C Screening [employer] Start: 07-01-2021 HIV screening HIV Screening [facility] Start: 07-01-2021 Lipid panel Cholesterol Screening (Lipid Panel) [facility] Start: 07-01-2021 Screening for malignant neoplasm of breast Breast Cancer Screening [facility] Start: 07-01-2021 Screening for malignant neoplasm of colon Colorectal Cancer Screening: Colonoscopy [facility] Start: 07-01-2021 Screening for malignant neoplasm of lung Lung Cancer Screening (Low Dose CT) [facility] Start: 07-01-2021 Social Influencers of Health Screening Social Influencers of Health Screening [facility] Start: 07-17-2019 Influenza vaccination LUNG CANCER SCREENING [facility] Start: 2014 SHINGRIX VACCINE (1 of 2) SHINGRIX VACCINE (1 of 2) [facility] Start: 2014 Zoster Vaccines (1 of 2) Zoster Vaccines (1 of 2) [facility] Start: 2009 COLOGUARD (FIT-DNA) COLOGUARD (FIT-DNA) [facility] Start: 2009 Colonoscopy COLONOSCOPY [facility] Start: 2009 COLORECTAL CANCER SCREENING COLORECTAL CANCER SCREENING [facility] Start: [address] COLONOGRAPHY [facility] Start: 2009 FECAL OCCULT BLOOD FECAL OCCULT BLOOD [facility] Start: 2009 SIGMOIDOSCOPY SIGMOIDOSCOPY [facility] Start: 2004 Mammography MAMMOGRAM [facility] Start: 1994 HPV TESTING HPV TESTING [facility] Start: 1985 PAP TESTING PAP TESTING [facility] Start: 1985 Screening for malignant neoplasm of cervix Cervical Cancer Screening: Pap Smear [facility] Start: 07-17-1983 DTaP,Tdap,and Td Vaccines (1 - Tdap) DTaP,Tdap,and Td Vaccines (1 - Tdap) [facility] Start: 07-17-1983 Urine microalbumin profile DTAP,TDAP,TD (1 - Tdap) [facility] Start: 1982 HEPATITIS C SCREENING HEPATITIS C SCREENING [facility] Start: 1982 HIV SCREENING HIV SCREENING [facility] Start: 1976 Adult depression screening assessment DEPRESSION SCREENING [facility] Glucose [Mass/volume ] in Serum or Plasma POCT Glucose, blood Point of Care Testing-Docked Device Routine 08/28/2021 3:42 PM EDT [facility] Work Phone: Immunizations Immunization Date Immunization Notes Care Provider Den howard 12-28-2020 influenza, injectabl e, quadrivalent, preservative free Paul Odonnell MD Work Phone: [facility] Payers Date Payer Category Payer Medicaid [id number] 2020 Medicaid [id number] 1964 Unknown [id number] 2.16.8 [id number] 1964 Unknown [id number] 2.16.84 0.1.805338.3.579.2.593 1964 Unknown [id number] 2.16.84 0.1.555291.3.579.2.593 1964 Unknown [id number] 2.16.84 0.1.911921.3.579.2.593 1964 Unknown [id number] 2.16.84 0.1.566628.3.579.2.593 1964 Unknown [id number] 2.16.84 0.1.052873.3.579.2.593 1964 Unknown [id number] 2.16.84 0.1.870121.3.579.2.593 1964 Unknown [id number] 2.16.84 0.1.114196.3.579.2.593 1964 Unknown [id number] 2.16.84 0.1.320175.3.579.2.593 1964 Unknown [id number] 2.16.84 0.1.710644.3.579.2.593 1964 Unknown [id number] 2.16.84 0.1.358449.3.579.2.593 1964 Unknown [id number] 2.16.84 0.1.608321.3.579.2.593 1964 Unknown [id number] 2.16.84 0.1.822267.3.579.2.593 1964 Unknown [id number] 2.16.84 0.1.169802.3.579.2.593 1964 Unknown [id number] 2.16.84 0.1.217690.3.579.2.593 1964 Unknown [id number] 2.16.84 0.1.286966.3.579.2.593 1964 Unknown [id number] 2.16.84 0.1.200738.3.579.2.593 1964 Unknown [id number] 2.16.84 0.1.816010.3.579.2.593 1964 Unknown [id number] 2.16.84 0.1.862308.3.579.2.593 1964 Unknown [id number] 2.16.84 0.1.171287.3.579.2.593 1964 Unknown [id number] 2.16.84 0.1.672139.3.579.2.593 1960 Medicaid [id number] Social History Date Type Detail Facility Start: 12-12-2020 End: 08-26-2021 Tobacco smoking status NHIS Ex-smoker [facility] Work Phone: Start: 08-27-2015 End: 04-13-2018 History of tobacco use Current smoker [facility] Work Phone: End: 04-13-2018 History of tobacco use Cigarette Smoker [facility] Work Phone: Start: 12-12-2020 Cigarettes smoked current (pack per day) - Reported 1 [facility] Start: 12-12-2020 End: 08-26-2021 Tobacco use and exposure Smokeless tobacco non-user [facility] Work Phone: Start: 12-12-2020 History SDOH Alcohol Comment 2-3 per month [facility] Start: 1965 Sex Assigned At Female C [facility] Start: 08-28-2021 Alcohol intake Ex-drinker (finding) [facility] Start: 1965 Sex Assigned At Not on file T [facility] Start: 08-18-2021 End: 08-28-2021 Exposure to SARS-CoV-2 (event) Not sure [facility] Medical Equipment Procedure Code Equipment Code Equipment Origin al Text Equipment Identifier Dates G7 Finned 4 H Sh ell 54mm F - Sn/A - [id number] [id number]( 21)N/A, [id number] FDA Start: 08-28-2021 Liner G7 Neutral Ve 36mm F - Sn/A - [id number] ()[id number] [id number] (21)N/A, [id number] FDA Start: 08-28-2021 G7 Screw 6.5mm X 30mm - Sn/A - [id number] ()[id number] [id number]( 21)N/A, [id number] FDA Start: 08-28-2021 Complete Ho Collarless Sz 6 - Sn/A - [id number] ()[id number] [id number]( 21)N/A, [id number] FDA Start: 08-28-2021 Hip Hd Fem 03/26 Blx 36mm -3.5 - Sn/A - [id number] ()[id number] [id number]( 21)N/A, [id number] FDA Start: 08-28-2021 Clinical Notes [...] be discharged home after meeting criteria. [facility] 07-03-2022 Note CONSULTATION CONSULTATION DATE: [...] p.o. daily to b.i.d., as well as Woodbridge 5 mg b.i.d., activity modification and a home exercise program. She reports she does respond to baclofen 10 mg at h.s. RECOMMENDATIONS: I have recommended a right knee joint injection. We will obtain urine toxicology screen at today's visit. [facility] 05-01-2022 Note CONSULTATION CONSULTATION DATE: [...] 10 mg q.h.s., Celebrex 200 mg daily, Woodbridge 5/325 b.i.d. Patient's REVIEW OF SYSTEMS / [...] three months' time unless otherwise indicated. [facility] 03-20-2022 Note CONSULTATION CONSULTATION DATE: [...] Current medications include Celebrex 200 mg daily, Woodbridge 5/325 b.i.d., baclofen 10 mg q. h.s [...] heat and vitamins. We will refill her Woodbridge and baclofen at the set dose and frequency. Patient agrees to move forward with the procedure and will be followed up in the clinic thereafter. [facility] 12-12-2021 Note CONSULTATION CONSULTATION DATE: [...] Current medications include Celebrex 200 mg daily, Woodbridge 5/325 b.i.d., baclofen 10 mg q.h.s. and [...] refill for baclofen 10 mg q.h.s and Woodbridge 5/325 b.i.d. will be sent to her pharmacy. Patient agrees to move forward and be followed up in the clinic post procedure. [facility] 10-10-2021 Note CONSULTATION CONSULTATION DATE: [...] she had a total hip replacement in [place] and feels great relief. Her pain is four out of 10 today. She does have right knee pain with known osteoarthritis and bone on bone to the lateral aspect. She has received a steroid knee injection on 10/07/2021 which gave her a fair amount of relief. Her current medications include Celebrex 200 mg q. day, Baclofen 10 mg q.h.s. and Woodbridge 5/325 t.i.d. The patient feels she doesn't [...] knee osteoarthritis. PLAN: We will refill her Woodbridge but decrease the dose to 5/325 b.i.d. [...] of care and all questions were answered. [facility] Signed and Approved by: THERESA WAGNER . 10/17/2021 10:22:00 [facility] 08-28-2021 History of Present illness [...] (at family request) for home. Pt signed [employer] paperwork. Pt transfer and gait training with FWW SBA. Curb step training with cga and cues for best safety practice as pt with bad R knee per report. Pt gait [id number] with antalgic gait pattern. Pt with 1+1 [...] Level of Function: Prior Function Level of [place]: Independent with mobility and functional transfers Prior [...] Gait Training Activity 1: Gait with FWW [id number] SBA Gait Training Activity 2: Curb step [...] of the procedure. documented in this encounter [facility] 08-28-2021 Procedure note Handoff report given to MARCELA Mcleod. Jessica Cardoso 1965 [facility], A Member of [facility] OPERATIVE REPORT PATIENT NAME: Jessica Cardoso DATE OF : 1965 CSN: [id number] SURGEON: Wyatt Tapia MD, FACS DATE OF SERVICE: 08/28/2021 DATE OF SURGERY: 08/28/2021 PREOPERATIVE DIAGNOSIS: OA right hip (M16.11) POSTOPERATIVE DIAGNOSIS: OA right hip (M16.11) PROCEDURE: Primary Right Total Hip Arthroplasty utilizing the direct lateral approach (20247) Femoral Component: [employer] Avenir Complete Collarless Stem , High Offset Size: 6 Acetabular Component: G7 4 Hole Finned Acetabular Shell , 54mm Liner: G7 Vivacit-E Neutral, F, 36mm Screws: G7 Acetabular Screw(s) 6.5x30mm (-); Head Neck Unit: [employer] Ceramic Taper , 36mm , -3.5 ATTENDING SURGEON: Wyatt Tapia MD, FACS MAINS AND SERVICE SUPERVISOR: Zafar Rivas PA-C INDICATIONS: Patient is a [...] satisfactory position and alignment of the components. MAINS AND SERVICE SUPERVISOR/ATTENDING PHYSICIAN: Zafar Rivas PA-C assisted with proper [...] He assisted with the dislocation of the assiniboine and sioux hip, as well as dislocation/relocation of the [...] Wyatt Tapia MD, FACS on 08/28/2021 16:59:00 [facility], A Member of [facility] OPERATIVE REPORT PATIENT NAME: Jessica Cardoso DATE OF : 1965 CSN: [id number] SURGEON: Wyatt Tapia MD, FACS DATE OF SERVICE: 08/28/2021 DATE OF SURGERY: 08/28/2021 REF [id number] LOT [id number] G7 Finned Acetabular Shell 54MM SHELL SIZE F LINER SIZE Acetabular shell Use By 2031-04-19 () [id number] 152319 (42) [id number] REF [id number] LOT [id number] G7 Vivacit-E Size F 36.00 Millimeter Non-constrained polyethylene acetabular liner Use By 2026-07-03 () [id number] (37) [id number] REF [id number] LOT [id number] G7 ACETABULAR SCREW 6.5MM DIAMETER 30 SCREW LGTH Orthopaedic bone screw, non-bioabsorbable, sterile Use By 2031-06-02 () [id number] [id number] (10) [id number] REF [id number] LOT [id number] Avenir Complete Size 6 Coated hip femur prosthesis, modular Use By 2025-11-28 () [id number] 17) [id number] (55) [id number] REF [id number] LOT [id number] Biolox delta 36/-3.5 'S' BIOLOX DELTA, CERAMIC FEMORAL HEAD, S, 36/-3.5, TAPER 03/26 Use By 2031-05-22 (76) [id number] (55) [id number] (17) [id number] . documented in this encounter [facility] 08-28-2021 History and physical note History and Physical Update ( H&P completed within the previous thirty days ) I personally reviewed the History and Physical, interviewed and examined the patient prior to surgery. No changes have occurred in the patient's condition since the History and Physical was completed. documented in this encounter [facility] 08-26-2021 Hospital course Narrative Pre-Surgery Instructions: Medication [...] ordered/prescribed by your pcplast dose 08/21 HYDROcodone-acetaminophen (Woodbridge) 5-325 mg per tablet Continue to take [...] prior to your surgery. Check in at customer service receptionist desk [address] [place] [address]. If Outpatient, these additional instructions apply: An adult must stay with you the whole time you are here and drive you home. An adult must stay with you at home for 24 hours due to Anesthesia. If you have NEREIDA, you are required to stay 3 hours after your surgery before we can discharge you. 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 Staffing Anesthesiologist: Tiburcio Eisenberg MD DATA CONTROL ASSISTANT: Estefany Cook APRN.DATA CONTROL ASSISTANT Performed by: JIA Indications and Patient Condition [...] attempts at approach: 1 SIGNATURE: Estefany Cook APRN.DATA CONTROL ASSISTANT PATIENT NAME: Jessica Cardoso DATE: March 29, 2021 TIME: 10:47 AM CSN: [id number] [facility] 12-28-2020 Note HNO ID: [id number] Author: Loren Boyd MD Service: General Surgery Author Type: Resident Type: Progress Notes Filed: 12/28/2020 7:46 AM Note Text: GENERAL SURGERY PROGRESS NOTE Jessica Cardoso [id number] ASSESSMENT AND PLAN 55 year old female [...] General Loren En Oliver PGY-1 General Surgery [facility] 12-27-2020 Note HNO ID: [id number] Author: Estefany Cook APRN.DATA CONTROL ASSISTANT Service: Anesthesiology Author Type: Nurse Marketing Specialist Type: Anesthesia Procedure Notes Filed: 12/27/2020 [...] Imaging Guidance Used: No SIGNATURE: Estefany Cook APRN.DATA CONTROL ASSISTANT PATIENT NAME: Jessica Cardoso DATE: December 27, 2020 TIME: 1:57 PM CSN: [id number] [facility] 12-27-2020 Note HNO ID: [id number] Author: Estefany Cook APRN.DATA CONTROL ASSISTANT Service: Anesthesiology Author Type: Nurse Marketing Specialist Type: Anesthesia Procedure Notes Filed: 12/27/2020 [...] December 27, 2020 TIME: 1:54 PM CSN: [id number] [facility] 12-27-2020 Note HNO ID: [id number] Author: Estefany Cook APRN.DATA CONTROL ASSISTANT Service: Anesthesiology Author Type: Nurse Marketing Specialist Type: Anesthesia Procedure Notes Filed: 12/27/2020 [...] December 27, 2020 TIME: 1:50 PM CSN: [id number] [facility] Evaluation note Diagnosis Unilateral primary osteoarthritis, right hip documented in this encounter [facility] Discharge instructions* Attachments The following attachments cannot be sent through Care Everywhere. * Hip Replacement: Total: General Info (Setswana) * Fall [facility] (Setswana) [facility] Auth/Cert Specialty Diagnoses / Procedures Referred By Contac t Referred To Contact Diagnoses Unilateral primary osteoarthritis, right hip M16.11 Procedures SD ARTHROPLASTY ACETABULAR AND PROXIMAL FEMORAL PROSTHETIC REPLACEMENT (TOTAL HIP ARTHROPLASTY) WITH OR WITHOUT AUTOGRAFT OR ALLOGRAFT SD ARTHROPLASTY ACETABULAR AND PROXIMAL FEMORAL PROSTHETIC REPLACEMENT (TOTAL HIP ARTHROPLASTY) WITH OR WITHOUT AUTOGRAFT OR ALLOGRAFT Right total hip arthoplasty Wyatt Houston MD [address] [facility] [address] [place] [address] Referral ID Status Reason Start Date Expiration Date Visits Re quested Visits Authorized [id number] 07/01/2021 1 1 [facility] Summary Purpose Family History No Family History Records FoundNo Family History Records FoundNo Family History Records FoundNo Family History Records FoundNo Family History Records FoundNo Family History Records FoundNo Family History Records Found Advance Directives No Advanced Directives Records FoundDocuments on File Type Date Recorded Patient 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 Advance Directive(s) 03/13/2021 11:32 AM Advance Directive(s) 12/03/2020 2:46 PM Advance Directive(s) 10/05/2020 8:41 AM Documents on File Type Date Recorded Patient 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 DATE CREATED AUTHOR AUTHOR'S ORGANIZ ATION 10/31/2023 Seamus Mcintosh [facility] Source Comments (unrecognize d section and content) In the event this informatio n is protected by the Federal Confidentiality of Alcohol and Drug Abuse Patient Records regulations: The Federal rules restrict any use of the information to criminally investigate or prosecute any alcohol or drug abuse patient.[facility] Reason for Visit (unrecogniz ed section and content) Reason Onset Date Comments Refill Request 07/14/2021 Care Teams (unrecognized sec tion and content) Tool Machine Setup Operator Relationship Specialty Start Date End Date Yaneth Garcia MD [address] [place], [place] [phone] PCP - General Family Practice 10/05/20 Tool Machine Setup Operator Relationship Specialty Start Date End Date Yaneth Garcia MD [address] [place] [address] PCP - General Family Medicine 08/05/21 Ordered [...] Prophylaxis: Orthopedic 1310 (Given - Provid er: SIAAC Sharma) Continuous Medication Order 08/26/2021 08/27/2021 08/28/2021 [...] Recovery (only), 2nd Line Option: -ONLY give SD if patient is unable to take orally [...] Recovery (only)
2nd Line Option: -ONLY give SD if patient is unable to take orally [...] BE BASED ON THE PRIMARY CLINICAL RECORDS. [employer] [facility]. provides no warranty or guarantee of the accuracy or completeness of information in this document.
[2024-02-03 08:40] LABS: Basophils Percent Auto 0.5 % (0.2-2.0); Eosinophils Absolute Auto 0.2 10^3/uL (0.0-0.7); Eosinophils Percent Auto 2.8 % (0.9-7.0); Hematocrit 41.8 % (36.0-48.0); Hemoglobin 13.5 g/dL (12.0-16.0); Immature Granulocytes Abs Auto 0.06 10^3/uL (0.00-0.03); Immature Granulocytes Pct Auto 0.8 % (0.0-0.5); Lymphocytes Absolute Auto 1.9 10^3/uL (1.2-3.8); Lymphocytes Percent Auto 24.8 % (20.5-60.0); Mean Corpuscular HGB Conc 32.3 g/dL (29.9-35.2); Mean Corpuscular Hemoglobin 28.7 pg (26.7-34.0); Mean Corpuscular Volume 88.9 fL (81.0-99.0); Mean Platelet Volume 9.2 fL (9.5-13.5); Monocytes Absolute Auto 0.6 10^3/uL (0.3-0.8); Monocytes Percent Auto 7.8 % (1.7-12.0); Neutrophils Absolute Auto 4.8 10^3/uL (1.4-6.5); Neutrophils Percent Auto 63.3 % (43.0-75.0); Platelet Count 241 10^3/uL (150-450); Red Cell Distribution Width 11.9 % (11.0-15.0); White Blood Count 7.6 10^3/uL (4.0-11.0)
[2024-02-03 09:01] LABS: Estimated Average Glucose 103 mg/dL; Glycohemoglobin A1C 5.2 % (4.5-6.2)
[2024-02-03 09:34] LABS: Alanine Aminotransferase 23 U/L (14-59); Anion Gap 12.1; Aspartate Amino Transferase 18 U/L (15-37); BUN Creatinine Ratio 29.2; Bilirubin Total 0.4 mg/dL (0.2-1.0); Calcium 8.4 mg/dL (8.5-10.1); Chloride 104 mmol/L (98-107); Estimated GFR (African America >60 (>=60 mL/min/1.73m^2); Estimated GFR (Non-African Ame >60 (>=60 mL/min/1.73m^2); Glucose 83 mg/dL (74-106); Potassium 4.1 mmol/L (3.5-5.1); Sodium 142 mmol/L (136-145)
[2024-02-03 09:35] LABS: Albumin Level 3.3 g/dL (3.4-5.0); Alkaline Phosphatase 108 U/L (46-116); Chol HDL Ratio 3.9; Cholesterol 216 mg/dL (<=200); Free T3 3.03 pg/mL (2.18-3.98); Globulin 3.4 g/dL; HDL Cholesterol 56 mg/dL (40-60); Thyroid Stimulating Hormone 0.971 uIU/mL (0.358-3.740); Total Protein 6.7 g/dL (6.4-8.2); Triglycerides 160 mg/dL (<=150)
[2024-02-04 10:13] LABS: Insulin 10.6 uIU/mL (2.6-24.9)
== END 2024-02-03 08:18 | disposition home or self-care (01) ==
LOC: LAB 08:18
PROVIDERS: PCP Family Medicine; Visit Provider Family Medicine
DX: Z00.00 Encounter for general adult medical examination without abnormal findings (principal)
CPT/HCPCS: 36415; 80053; 80061; 83036; 83525; 84436; 84443; 84481; 85025

== ENCOUNTER 2024-03-02 08:13 | Outpatient (OUT) | payer MEDICAID, SELFPAY ==
--- NOTE | 2024-03-02 08:17 | P.CN_ITS ---
Consult Note: HPI Data of Consult Patient: known to practice within the last 3 years Requesting Physician: Vivian Corral NP Primary Care Provider: Marlon Garcia MD Consult Narrative Reason for consult: f/u Narrative: Jessica Dillard a pleasant 57 year old female presents for evaluation and management of chronic pain. Today pain is 3/10 in low back and right knee, describes it as a dull ache. Pain increases to 7/10 with activity and depending on the weather and activity, now noticing increase with standing walking lifting bending twisting stairs and improved with sitting and medications. Patient finding benefit to current medication regimen without side effects. engaged in provider guided HEP greater than 6 weeks with mild benefit. Recently underwent repeat left and right L2-3 L4-5 facet RFA with moderate relief in these areas, noticing increase in thoracic pain. cc:: CC: Vivian Corral NP Review of Systems ROS Status of ROS 10 or more systems reviewed and unremark able except as noted in history and below Musculoskeletal Reports: back pain and joint pain PFSH PFSH Medical History Osteoarthritis ?M19.90 - Unspecified osteoarthritis, unspecified site (ICD-10) Depression ?F32.A - Depression, unspecified (ICD-10) Sleep apnea ?G47.30 - Sleep apnea, unspecified (ICD-10) High cholesterol ?E78.00 - Pure hypercholesterolemia, unspecified (ICD-10) HTN (hypertension) ?I10 - Essential (primary) hypertension (ICD-10) Surgical History History of right knee surgery ?Z98.890 - Other specified postprocedural states (ICD-10) 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 [part of] (ICD-10) History of breast biopsy ?Z98.890 - Other specified postprocedural states (ICD-10) History of arthroscopy of left knee ?Z98.890 - Other specified postprocedural states (ICD-10) History of total left hip arthroplasty ?Z96.642 - Presence of left artificial hip joint (ICD-10) History of right hip replacement ?Z96.641 - Presence of right artificial hip joint (ICD-10) Meds Home Medications and Allergies Home Medications ?Medication ?Instructions ?Recorded ?Confirmed ?Type acetaminophen 500 mg tablet 500 mg PO QID PRN pain 11/04/22 01/26/24 History (Acetaminophen Extra Strength) bee pollen 550 mg capsule mg PO 11/04/22 History biotin 1 mg capsule 1 mg PO DAILY 11/04/22 01/26/24 History celecoxib 200 mg capsule 200 mg PO Q24H 11/04/22 01/26/24 History magnesium 200 mg tablet 400 mg PO DAILY 11/04/22 01/26/24 History multivitamin (Daily Multi-Vitamin 1 tab PO DAILY 11/04/22 01/26/24 History tablet) pantoprazole 40 mg tablet,delayed 40 mg PO DAILY 11/04/22 01/26/24 History release baclofen 10 mg tablet 10 mg PO TID PRN muscle spasm #90 05/18/23 01/26/24 Rx tabs hydrocodone 5 mg-acetaminophen 325 1 tab PO BID PRN pain #60 tabs 10/09/23 01/26/24 Rx mg tablet hydrocodone 5 mg-acetaminophen 325 1 tab PO BID PRN pain #60 tabs 01/14/24 01/26/24 Rx mg tablet hydrocodone 5 mg-acetaminophen 325 1 tab PO BID PRN pain #60 tabs 02/22/24 Rx mg tablet Allergies Allergy/AdvReac Type Severity Reaction Status Date / Time ciprofloxacin (From Cipro) Allergy unknown Verified 01/26/24 08:36 Exam Constitutional Documenting provider has reviewed patient's vital signs: yes Common normals: no apparent distress, oriented x3, healthy appearing, alert and well nourished General appearance: cooperative HENDE Common normals: normocephalic, hearing grossly normal bilaterally and moist oral mucous membranes Head and scalp: normocephalic Eye Common normals: PERRL Pupil: PERRL Neck & C-Spine Common normals: full ROM General: normal visual inspection Chest Common normals: inspection of chest normal Respiratory Common normals: normal respiratory effort, no retractions and no use of accessory muscles Back & Pelvis Thoracic spine/upper back: pain with ROM Lumbar spine/lower back: straight leg raise negative bilaterally; no pain with ROM Sacroiliac joints: SI joints normal Other: positive facet loading bilaterally, tenderness over T9-12 facets. no pain noted over L3-S1 facets strength 5/5 in BLE sensation intact BLE Extremity Common normals: normal to inspection and full ROM Right lower extremity: knee joint Right knee: inspection (enlarged joint) Other: pain with weight bearing and activity, mild to moderate edema noted, pain with medial and lateral stress testing no instability noted, moderate crepitus on exam Neuro Common normals: oriented x3, CN's II-XII intact bilaterally, moves all extremities, no focal motor deficits, no sensory deficits noted, deep tendon reflexes 2+ bilaterally and gait normal Sensorium/orientation: alert Motor exam: strength 5/5 throughout and no movement abnormalities noted Psych Common normals: mental status grossly normal, thought process normal, cooperative, affect normal, speech normal and activity/motor behavior normal Speech: normal speech Thought process: normal thought process Assessment and Plan Assessment and Plan (1) Lumbar spondylosis: Assessment and Plan: greater than 50% improvement on exam from repeat right and left L2-3 L4-5 facet RFA (2) Knee osteoarthritis: Assessment and Plan: insurance no longer covering durolane (3) Chronic prescription opiate use: Assessment and Plan: I feel these medications are improving the patient's quality of life and allow them to tolerate activities of daily living as well as participate in recreational activity.? The patient does not report intolerable side effects. The patient is NOT opioid naive and non-pharmacologic and non-opioid treatment has failed to significantly relieve the patient's pain and improve functionality. The patient has a diagnosis that is related to a somatic or visce ral pain etiology. ? ?? I reviewed with the patient the potential risks and side effects with the use of? opioid medications including but not limited to respiratory depression,? sedation, and even . Within the last 12 months I have verified the patient has access to naloxone should? these effects occur. The patient was advised to let? their family know they had Naloxone in case they would need to administer? the medication. I advised the patient to avoid the use of any other? sedation substances including alcohol, THC, and benzodiazepines while? taking opioid medications due to the risk of compounding side effects and? detrimental outcomes. within the last 12 months I have reviewed the [employer], pain treatment agreement and urine drug screen.? ?? A drug screen was completed within the last year, and no aberrancies were noted regarding their use of controlled substances. The patient understands they are subject to the terms and conditions of the pain contract that they have signed. ? ?? I have checked an [facility] report on this patient today and there are no aberrancies noted in the prescribing history.? (4) Thoracic spondylosis: Assessment and Plan: insurance will not cover thoracic MBBs/RFAs (5) Myalgia: Plan pt is not interested in further workup for thoracic pain, would like to restart HEP. insurance will not cover thoracic MBBs/RFAs declining orthopedic consult for knee OA continue current medications, continues to find functional improvement without side effects. narcan discussed and prescribed previously f/u 3 months, sooner if needed
--- OUTSIDE RECORDS SUMMARY | 2024-03-02 08:35 | XMS_ITS | CCD ---
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 Name Role Phone Yaneth Garcia MD Primary Care Provider [phone] WYATT TAPIA Admitting Unavailable WYATT TAPIA Attending Unavailable YANETH GARCIA Primary Care Unavailable HOY ., DR WOLFE Consulting Unavailable HOY ., DR WOLFE Attending Unavailable HOY ., DR WOLFE Admitting Unavailable HOY ., DR WOLFE Primary Care Unavailable WILHELM ., DR KAITLIN Jang Attending Unavailable WILHELM ., DR KAITLIN Jang Admitting Unavailable HOY ., DR WOLFE Primary Care Unavailable BERNARD .THERESA Consulting Unavailable HOY ., DR WOLFE [...] Unavailable MISC, DR FISHER Attending Unavailable WAGNER .THEERSA Consulting Unavailable HOY ., DR WOLFE Primary [...] DR WOLFE Primary Care Unavailable LAKSHMIPATHY ., NARENDLAY Consulting Pauly vailable WAGNER ., THERESA Consulting [...] DR WOLFE Primary Care Unavailable LAKSHMIPATHY ., NARENDRAÚLATH Consulting Pauly vailable LAKSHMIPATHY ., NARENDRAÚLATH Attending Pauly vailable LAKSHMIPATHY ., NARENDRAÚLATH Admitting Pauly vailable HOY ., DR WOLFE Primary Care Unavailable HOY ., DR WOLFE Primary Care Unavailable WILHELM ., DR KAITLIN Jang Attending Unavailable WILHELM ., DR KAITLIN Jang Admitting Unavailable PAUL ODONNELL Referring Unavailable YANETH GARCIA Primary Care Unavailable ELIJAH MARROQUIN Attending Unavailable Vidya Brito Attending Unavaila ble Allergies Allergy Classification Reported Allergen(s) Allergy Type Date of Onset Reaction(s) Facility (4 sources) Ciprofloxacin; Translations: [CIPROFLOXACIN] Drug Allergy 10-19-2020 Unknown [facility] (2 sources) Ciprofloxacin Drug Allergy 08-17-2013 [facility] Rep[facility] Medications Current Medications Medication Drug Class(es) [...] 200 mg, oral, Daily, First dose on [facility] 08/29/21 at 0900, Phase II/On Unit [...] Comment on above: Take 1 capsule by [facility] twice daily. Completed/Discontinued Medications Medication Drug Class(es) [...] tablet by mouth three times daily HYDROcodone-acetaminophen ([place]) 5-325 mg per tablet Take 1 tablet [...] Facility Patient Letter FTon [address] [facility] Patient Letter [facility] October 27, 2023 JESSICA CARDOSO [address] [place] [address] : 1965 Dear Jessica, This is a reminder that you are due for an appointment with [facility]. Please contact our office at [phone] to schedule your 5 year colon recall Thank you, [facility] [phone] Normal [facility] Covid-19 PCR (CVDTBH)on 03-13 SARS-CoV-2 (COVID-19) RNA HELLEN+probe Ql (Unsp spec) Not detected Normal NOT DETECTED [facility] Comment on above: Result Comment: When diagnostic [...] for this test is supported by the Mechanical Planner of Health and Human Service's declaration that [...] be used). Performed By: #### C VDTBH ####[facility] [address] [address]Dr. Bakari Isidro INFLUENZA A AND B AGon 03-28 INFLUANEGH SEE BELOW Normal [facility] Comment on above: Result Comment: Nega tive for Flu A protein angiten. Infection due to Flu A cannot be ruled out. Flu A angiten in the sample may be below the detection limit of the test. Performed By: #### I NFLUAB ####[facility] [address] [id number] A Isidro INFLUBNEGH SEE BELOW Normal [facility] Comment on above: Result Comment: Nega tive for Flu B protein antigen. Infection due to Flu B cannot be ruled out. Flu B antigen in the sample may be below the detection limit of the test. Performed By: #### I NFLUAB ####[facility] [address] [id number]. Bakari [facility] INFLUENZA A AG Negative Normal NEGATIVE SEE COMMENT [facility] Comment on above: Performed By: #### I NFLUAB ####[facility] [address] [id number]. Bakari Isidro INFLUENZA B AG Negative Normal NEGATIVE SEE COMMENT [facility] Comment on above: Performed By: #### I NFLUAB ####[facility] [address] [place], [place] [address]Dr. [facility] INTERNAL CONTROLS Within Normal Limits Normal Wi thin Normal Limits [facility] Comment on above: Performed By: #### I NFLUAB ####[facility] [address] [place], [place] [address]Dr. Bakari [facility] Covid-19 PCR (CVDTB)on SARS-CoV-2 (COVID-19) RNA HELLEN+probe Ql (Unsp spec) Not detected Normal NOT DETECTED [facility] Comment on above: Result Comment: This test is not yet approved or cleared by the [place] FDA. When there are no FDA-approved or cleared tests available, and other criteria are met, FDA can make tests available under an emergency access mechanism called an Emergency Use Authorization (EUA). The EUA for this test is supported by the [place] of Health and Human Service's (HHS's) declaration [...] with SARS-CoV-2. Performed By: #### C VDTBH ####[facility] [address] [place], [place] [address]Kv. Bakari Isidro Cov[facility]-19 [facility]on 01-12 SARS-CoV-2 (COVID-19) RNA HELLEN+probe Ql (Unsp spec) Not detected Normal NOT DETECTED [facility] Comment on above: Result Comment: This test is not yet approved or cleared by the [place] FDA. When there are no FDA-approved or cleared tests available, and other criteria are met, FDA can make tests available under an emergency access mechanism called an Emergency Use Authorization (EUA). The EUA for this test is supported by the [place] of Health and Human Service's (HHS's) declaration [...] with SARS-CoV-2. Performed By: #### C VDTB ####[facility] [address] [place], [place] [address]Zb. Bakari Isidro VIT D 25-OH LABCORPon 2021 Vitamin D, 25-Hydroxy 60.1 ng/mL Normal 30.0-100.0 [facility] Comment on above: Result Comment: Traci min D deficiency has been defined by the [place] of Medicine and an Endocrine Society practice guideline as a level of serum 25-OH vitamin D less than 20 ng/mL (1,2). The Endocrine Society went on to further define vitamin D insufficiency as a level between 21 and 29 ng/mL (2). 1. IOM ([place] of Medicine). 2010. Dietary reference intakes for calcium and D. [place]: The National Academies Press. 2. Qi MF, Celeste NC, Debora CHOWDHURY, et al. Evaluation, treatment, and prevention of vitamin D deficiency: an Endocrine Society clinical practice guideline. JCEM. 2010; 96(7):1911-30. Performed By: #### V ITADLC #### [facility] [address] [address] [address] Bakari Isidro CBC AUTO DIFFon 11-19-2021 BASO # 0.0 103/ul Normal 0.0-0.1 [facility] Comment on above: Performed By: #### C BC ####[facility] [address] [address]DrJuan A Isidro Basophils/100 WBC (Bld) 0.5 % Normal 0.2-2.0 [facility] Comment on above: Performed By: #### C BC ####[facility] [address] [address]Dr. Bakari Isidro EO # 0.1 103/ul Normal 0.0-0.7 [facility] Comment on above: Performed By: #### C BC ####[facility] [address] [address]Dr. Bakari Isidro Eosinophils/100 WBC (Bld) 1.4 % Normal 0.9-7.0 [facility] Comment on above: Performed By: #### C BC ####[facility] [address] [address]Dr. Bakari Isidro Erythrocyte distribution width (RBC) [Ratio] 12.8 % Normal 11.0-15.0 [facility] Comment on above: Performed By: #### C BC ####[facility] [address] [address]Dr. Bakari Isidro Hematocrit (Bld) [Volume fraction] 43.2 % Normal 36.0-48.0 [facility] Comment on above: Performed By: #### C BC ####[facility] [address] [address]DrJuan A Isidro Hemoglobin (Bld) [Mass/Vol] 13.4 g/dL Normal 12.0-16.0 [facility] Comment on above: Performed By: #### C BC ####[facility] [address] [address]Dr. Bakari Dwaine IG # 0.05 10e3/ul Critically high 0.00-0.03 [facility] Comment on above: Performed By: #### C BC ####[facility] [address] [address]Dr. Bakari Dwaine IG % 0.6 % Critically high 0.0-0.5 [facility] Comment on above: Performed By: #### C BC ####[facility] [address] [place], [place] [address]Dr. Bakari Dwaine LYMPH # 1.6 103/ul Normal 1.2-3.8 [facility] Comment on above: Performed By: #### C BC ####[facility] [address] [place], [place] [address]Dr. Ravenmaxx Isidro Lymphocytes/100 WBC (Bld) 19.4 % Critically low 20.5-60.0 [facility] Comment on above: Performed By: #### C BC ####[facility] [address] [place], [place] [address]DrJuan A Ravenmaxx Isidro MANUAL DIFF REQ NO Normal [facility] Comment on above: Performed By: #### C BC ####[facility] [address] [place], [place] [address]DrJuan A Bakari Isidro MCH (RBC) [Entitic mass] 27.5 pg Normal 26.7-34.0 [facility] Comment on above: Performed By: #### C BC ####[facility] [address] [place], [place] [address]DrJuan A Bakari Isidro MCHC (RBC) [Mass/Vol] 31.0 g/dL Normal 29.9-35.2 [facility] Comment on above: Performed By: #### C BC ####[facility] [address] [place], [place] [address]DrJuan A Bakari Isidro MCV (RBC) [Entitic vol] 88.5 fL Normal 81.0-99.0 [facility] Comment on above: Performed By: #### C BC ####[facility] [address] [place], [place] [address]Dr. Bakari Isidro MONO # 0.6 103/ul Normal 0.3-0.8 [facility] Comment on above: Performed By: #### C BC ####[facility] [address] [address]Dr. Bakari Isidro Monocytes/100 WBC (Bld) 7.2 % Normal 1.7-12.0 [facility] Comment on above: Performed By: #### C BC ####[facility] [address] [address]Dr. Bakari Isidro NEUT # 6.0 103/ul Normal 1.4-6.5 [facility] Comment on above: Performed By: #### C BC ####[facility] [address] [place], [place] [address]Dr. Bakari Isidro Neutrophils/100 WBC (Bld) 70.9 % Normal 43.0-75.0 [facility] Comment on above: Performed By: #### C BC ####[facility] [address] [place], [place] [address]Dr. Bakari Isidro Platelet mean volume (Bld) [Entitic vol] 9.5 fL Normal 9.5-13.5 [facility] Comment on above: Performed By: #### C BC ####[facility] [address] [address]Dr. Bakari Isidro PLT 236 103/ul Normal 150-450 [facility] Comment on above: Performed By: #### C BC ####[facility] [address] [place], [place] [address]Dr. Bakari Isidro RBC 4.88 106/ul Normal 4.20-5.40 [facility] Comment on above: Performed By: #### C BC ####[facility] [address] [place], [place] [address]Dr. Bakari Isidro WBC 8.5 103/ul Normal 4.0-11.0 [facility] Comment on above: Performed By: #### C BC ####[facility] [address] [place], [place] [address]Dr. Bakari Isidro FREE THYROXINE INDEX T7on FTI 2.27 Normal 1.30-4.50 [facility] Comment on above: Performed By: #### T SH, LIPID, CMP, T7 #### [facility] [address] [address] [address] Bakari Isidro T3U 32.0 % Normal 30.0-39.0 [facility] Comment on above: Performed By: #### T SH, LIPID, CMP, T7 #### [facility] [address] [address] [address] Bakari Isidro T4 [Mass/Vol] 7.10 ug/dL Normal 4.80-13.90 [facility] Comment on above: Performed By: #### T SH, LIPID, CMP, T7 #### [facility] [address] [address] [address] Bakari Isidro GLYCOHEMOGLOBIN A1Con 2021 ADA RECOMMENDATION SEE BELOW Normal [facility] Comment on above: Result Comment: ADA RECOMMENDED LIMIT 4.0 - 6.0 ADA THERAPEUTIC TARGET < 7.0 ACTION SUGGESTED > 7.0 Performed By: #### A 1C #### [facility] [address] [address] [address] Bakari Isidro Glucose [Mass/Vol] 105 mg/dL Normal [facility] Comment on above: Performed By: #### A 1C #### [facility] [address] [address] [address] Bakari Isidro HbA1c (Bld) [Mass fraction] 5.3 % Normal 4.5-6.2 [facility] Comment on above: Performed By: #### A 1C #### [facility] [address] [address] [address] Bakari Isidro IRONon 11-19-2021 Iron [Mass/Vol] 49.0 ug/dL Critically low 50.0-170.0 [facility] Comment on above: Performed By: #### I JOHAN, B12FOL ####[facility] [address] [address]Dr. Bakari Isidro LIPID PROFILEon 11-19-2021 CHOL-HDL RATIO NORM SEE BELOW Normal [facility] Comment on above: Result Comment: 3.3 - 4.4 LOW RISK 4.4 - 7.1 AVERAGE RISK 7.1 - 11.0 MODERATE RISK >11.0 HIGH RISK Performed By: #### T SH, LIPID, CMP, T7 #### [facility] [address] [address] [address] Bakari Isidro Cholesterol [Mass/Vol] 219 mg/dL Critically high <=200 [facility] Comment on above: Performed By: #### T SH, LIPID, CMP, T7 #### [facility] [address] [address] [address] Bakari Isidro Cholesterol in HDL [Mass/Vol] 43 mg/dL Normal 40-60 [facility] Comment on above: Performed By: #### T SH, LIPID, CMP, T7 #### [facility] [address] [address] [address] Bakari Isidro Cholesterol in LDL [Mass/Vol] 147.0 mg/dL Normal [facility] Comment on above: Performed By: #### T SH, LIPID, CMP, T7 #### [facility] [address] [address] [address] Bakari Isidro Cholesterol.total /Cholesterol in HDL [Mass ratio] 5.1 {ratio} Normal [facility] Comment on above: Performed By: #### T SH, LIPID, CMP, T7 #### [facility] [address] [address] [address] Bakari Isidro HDL NORMAL > or = 60 mg/dl - LO W CARDIOVASCULAR RISK <40 mg/dl - HIGH CARDIOVASCULAR RISK Normal [facility] Comment on above: Performed By: #### T SH, LIPID, CMP, T7 #### [facility] [address] [address] [address] Bakari Isidro LDL CALC NORMAL SEE BELOW Normal [facility] Comment on above: Result Comment: <100 mg/dl OPTIMAL 100 - 129 mg/dl NEAR OR ABOVE OPTIMAL 130 - 159 mg/dl BORDERLINE HIGH 160 - 189 mg/dl HIGH >190 mg/dl VERY HIGH Performed By: #### T SH, LIPID, CMP, T7 #### [facility] [address] [address] [address] Bakari Isidro Triglyceride [Mass/Vol] 145 mg/dL Normal <=150 [facility] Comment on above: Performed By: #### T SH, LIPID, CMP, T7 #### [facility] [address] [address] [address] Bakari Isidro VLDL CALC 29.0 mg/dL Normal [facility] Comment on above: Performed By: #### T SH, LIPID, CMP, T7 #### [facility] [address] [address] [address] Bakari Isidro PROF 14(COMP METB)on 022 Albumin [Mass/Vol] 3.6 g/dL Normal 3.4-5.0 [facility] Comment on above: Performed By: #### T SH, LIPID, CMP, T7 #### [facility] [address] [place] [address] Dr. Bakari Isidro Albumin/Globulin [Mass ratio] 1.1 {ratio} Normal [facility] Comment on above: Performed By: #### T SH, LIPID, CMP, T7 #### [facility] [address] [address] [address] Bakari Isidro ALP [Catalytic activity/Vol] 129 U/L Critically high 46-116 [facility] Comment on above: Performed By: #### T SH, LIPID, CMP, T7 #### [facility] [address] [address] [address] Bakari Isidro ALT [Catalytic activity/Vol] 24 U/L Normal 14-59 [facility] Comment on above: Performed By: #### T SH, LIPID, CMP, T7 #### [facility] [address] [address] [address] Bakari Isidro Anion gap [Moles/Vol] 15.7 mmol/L Normal [facility] Comment on above: Performed By: #### T SH, LIPID, CMP, T7 #### [facility] [address] [address] [address] Bakari Isidro AST [Catalytic activity/Vol] 13 U/L Critically low 15-37 [facility] Comment on above: Performed By: #### T SH, LIPID, CMP, T7 #### [facility] [address] [address] [address] Bakari Isidro Bilirubin [Mass/Vol] 0.3 mg/dL Normal 0.2-1.0 [facility] Comment on above: Performed By: #### T SH, LIPID, CMP, T7 #### [facility] [address] [place] [address] Dr. Bakari Isidro Calcium [Mass/Vol] 9.0 mg/dL Normal 8.5-10.1 [facility] Comment on above: Performed By: #### T SH, LIPID, CMP, T7 #### [facility] [address] [place] [address] Dr. Bakari Isidro Chloride [Moles/Vol] 105 mmol/L Normal 98-107 [facility] Comment on above: Performed By: #### T SH, LIPID, CMP, T7 #### [facility] [address] [place] [address] Dr. Bakari Isidro CO2 [Moles/Vol] 24.0 mmol/L Normal 21.0-32.0 [facility] Comment on above: Performed By: #### T SH, LIPID, CMP, T7 #### [facility] [address] [place] [address] Dr. Bakari Isidro Creatinine [Mass/Vol] 0.55 mg/dL Normal 0.55-1.02 [facility] Comment on above: Performed By: #### T SH, LIPID, CMP, T7 #### [facility] [address] [place] [address] Dr. Bakari Isidro EGFR-AF SLOVENIAN >60 Normal >=60 [facility] Comment on above: Performed By: #### T SH, LIPID, CMP, T7 #### [facility] [address] [place] [address] Dr. Bakari Isidro EGFR-NON AF SLOVENIAN >60 Normal >=60 [facility] Comment on above: Performed By: #### T SH, LIPID, CMP, T7 #### [facility] [address] [place] [address] Dr. Bakari Isidro Globulin (S) [Mass/Vol] 3.2 g/dL Normal [facility] Comment on above: Performed By: #### T SH, LIPID, CMP, T7 #### [facility] [address] [address] [address] Bakari Isdiro Glucose [Mass/Vol] 99 mg/dL Normal 74-106 [facility] Comment on above: Performed By: #### T SH, LIPID, CMP, T7 #### [facility] [address] [address] [address] Bakari Isidro Potassium [Moles/Vol] 4.7 mmol/L Normal 3.5-5.1 [facility] Comment on above: Performed By: #### T SH, LIPID, CMP, T7 #### [facility] [address] [place] [address] Dr. Bakari Isidro Protein [Mass/Vol] 6.8 g/dL Normal 6.4-8.2 [facility] Comment on above: Performed By: #### T SH, LIPID, CMP, T7 #### [facility] [address] [address] [address] Bakari Isidro Sodium [Moles/Vol] 140 mmol/L Normal 136-145 [facility] Comment on above: Performed By: #### T SH, LIPID, CMP, T7 #### [facility] [address] [place] [address] Dr. Bakari Isidro Urea nitrogen [Mass/Vol] 17.0 mg/dL Normal 7.0-18.0 [facility] Comment on above: Performed By: #### T SH, LIPID, CMP, T7 #### [facility] [address] [place] [address] Dr. Bakari Isidro Urea nitrogen/Creatini ne [Mass ratio] 30.9 mg/mg Normal [facility] Comment on above: Performed By: #### T SH, LIPID, CMP, T7 #### [facility] [address] [place] [address] Dr. Bakari Isidro TSHon 11-19-2021 TSH 0.483 uIU/mL Normal 0.358-3.740 [facility] Comment on above: Performed By: #### T SH, LIPID, CMP, T7 #### [facility] [address] [place], [place] [address] Dr. Bakari Isidro VIT B12 AND FOLATEon 022 Cobalamin (Vitamin B12) [Mass/Vol] 1350.0 pg/mL Critically high 193.0-986.0 [facility] Comment on above: Performed By: #### I JOHAN B12FOL ####[facility] [address] [place], [place] [address]Dr. Bakari Isidro FOLATE 23.50 ng/mL Normal 8.60-58.90 [facility] Comment on above: Performed By: #### I JOHAN B12FOL ####[facility] [address] [place], [place] [address]Dr. Bakari Isidro Glucose Auto test strip (Bld ) [Mass/Vol]on 08-28-2021 Glucose [Mass/Vol] 85 mg/dL Normal 70-99 [facility] Comment on above: Performed By: #### 2 340-8 #### [facility] [address] [place] [address] Glucose [Mass/Vol] 85 mg/dL 70 - 99 mg/dL [facility] Interpretation and review of laboratory results Normal [facility] Glucose [Mass/Vol] 85 mg/dL Normal 70-99 [facility] Comment on above: Performed By: #### 2 340-8 #### [facility] [address] [place] [address] Glucose [Mass/Vol] 85 mg/dL 70 - 99 mg/dL [facility] Interpretation and review of laboratory results Normal [facility] XR PELVIS 1-2 VIEWSon 2021 XR [...] Edit Transcribed Date: 08/28/2021 15:40 Normal [facility] XR Pelvis 1-2 Viewson 2021 Surgical [...] Sina Nguyen Reviewed and Electronically Signed By: NaeemdonavanSina Signed Date: 08/28/2021 15:40 Workstation ID: [id number] Transcribed By: Self Edit Transcribed Date: 08/28/2021 15:40 [facility] Radiology Study observation (narrative) [facility] XR Pelvis 1-2 ViewsOrdered B y: Sina Nguyen on 08-28-2021 [employer] Work Phone: Covid-19 PCR (CVDTB)on 08-11 SARS-CoV-2 (COVID-19) RNA HELLEN+probe Ql (Unsp spec) Not detected Normal NOT DETECTED [facility] Comment on above: Result Comment: This test is not yet approved or cleared by the [place] FDA. When there are no FDA-approved or cleared tests available, and other criteria are met, FDA can make tests available under an emergency access mechanism called an Emergency Use Authorization (EUA). The EUA for this test is supported by the [place] of Health and Human Service's (HHS's) declaration [...] SARS-CoV-2. Performed By: #### C VDTB #### [facility] [address] [place], [place] [address] Dr. Bakari Isidro Basic metabolic 2000 panelon 08-02-2021 Anion gap [Moles/Vol] 10 mmol/L Normal -18 [facility] Comment on above: Performed By: #### 2 4321-2 #### [facility] [address] [place] [address] Calcium [Mass/Vol] 9.6 mg/dL Normal 8.9-10.3 [facility] Comment on above: Performed By: #### 2 4321-2 #### [facility] [address] [place] [address] Chloride [Moles/Vol] 103 mmol/L Normal 98-107 [facility] Comment on above: Performed By: #### 2 4321-2 #### [facility] [address] [place] [address] CO2 [Moles/Vol] 27 mmol/L Normal 22-32 [facility] Comment on above: Performed By: #### 2 4321-2 #### [facility] [address] [place] [address] Creatinine [Mass/Vol] 0.60 mg/dL Normal 0.60-1.30 [facility] Comment on above: Performed By: #### 2 4321-2 #### [facility] [address] [place] [address] GFR/1.73 sq M.predicted among non-blacks MDRD (S/P/Bld) [Vol rate/Area] 101 mL/min/{1.73_m2} Normal [facility] Comment on above: Performed By: #### 2 4321-2 #### [facility] [address] [place] [address] Glucose [Mass/Vol] 86 mg/dL Normal 70-99 [facility] Comment on above: Performed By: #### 2 4321-2 #### [facility] [address] [facility] [place] [address] Potassium [Moles/Vol] 4.5 mmol/L Normal 3.6-5.1 [facility] Comment on above: Performed By: #### 2 4321-2 #### [facility] [address] [place] [address] Sodium [Moles/Vol] 140 mmol/L Normal 136-145 [facility] Comment on above: Performed By: #### 2 4321-2 #### [facility] [address] [place] [address] Urea nitrogen [Mass/Vol] 28 mg/dL High 8-20 [facility] Comment on above: Performed By: #### 2 4321-2 #### [facility] [address] [place] [address] Urea nitrogen/Creatini ne [Mass ratio] 46.7 mg/mg High 12.0-20.0 [facility] Comment on above: Performed By: #### 2 4321-2 #### [facility] [address] [place] [address] Hemogram and platelets WO di fferential panel (Bld)on 08-02-2021 Basophils (Bld) [#/Vol] 0.10 10*3/uL Normal 0.00-0.20 [facility] Comment on above: Performed By: #### 2 4317-0 #### [facility] [address] [place] [address] Basophils/100 WBC (Bld) 0.6 % Normal 0.0-2.0 [facility] Comment on above: Performed By: #### 2 4317-0 #### [facility] [address] [place] [address] Eosinophils (Bld) [#/Vol] 0.10 10*3/uL Normal 0.00-0.70 [facility] Comment on above: Performed By: #### 2 4317-0 #### [facility] [address] [place] [address] Eosinophils/100 WBC (Bld) 1.6 % Normal 0.0-7.0 [facility] Comment on above: Performed By: #### 2 4317-0 #### [facility] [address] [place] [address] Erythrocyte distribution width (RBC) [Ratio] 13.8 % Normal 11.0-14.8 [facility] Comment on above: Performed By: #### 2 4317-0 #### [facility] [address] [place] [address] Hematocrit (Bld) [Volume fraction] 40.1 % Normal 35.0-45.0 [facility] Comment on above: Performed By: #### 2 7-0 #### [facility] [address] [place] [address] Hemoglobin (Bld) [Mass/Vol] 13.1 g/dL Normal 12.0-16.0 [facility] Comment on above: Performed By: #### 2 4317-0 #### [facility] [address] [place] [address] Lymphocytes (Bld) [#/Vol] 1.80 10*3/uL Normal 1.00-4.80 [facility] Comment on above: Performed By: #### 2 4317-0 #### [facility] [address] [place] [address] Lymphocytes/100 WBC (Bld) 22.7 % Normal 22.0-44.0 [facility] Comment on above: Performed By: #### 2 4317-0 #### [facility] [address] [place] [address] MCH 28.1 pcg Normal 27.0-34.0 [facility] Comment on above: Performed By: #### 2 4317-0 #### [facility] [address] [place] [address] MCHC (RBC) [Mass/Vol] 32.7 g/dL Normal 32.0-36.0 [facility] Comment on above: Performed By: #### 2 4317-0 #### [facility] [address] [place] [address] MCV (RBC) [Entitic vol] 86.0 fL Normal 80.0-97.0 [facility] Comment on above: Performed By: #### 2 4317-0 #### [facility] [address] [place] [address] Monocytes (Bld) [#/Vol] 0.50 10*3/uL Normal 0.00-0.90 [facility] Comment on above: Performed By: #### 2 4317-0 #### [facility] [address] [place] [address] Monocytes/100 WBC (Bld) 6.3 % Normal 0.0-12.0 [facility] Comment on above: Performed By: #### 2 4317-0 #### [facility] [address] [place] [address] Neutrophils Absolute 5.30 K/mcL Normal 1.80-7.70 [facility] Comment on above: Performed By: #### 2 4317-0 #### [facility] [address] [place] [address] Neutrophils/100 WBC (Bld) 68.8 % Normal 40.0-70.0 [facility] Comment on above: Performed By: #### 2 4317-0 #### [facility] [address] [place] [address] Platelet mean volume (Bld) [Entitic vol] 8.6 fL Normal 6.2-12.1 [facility] Comment on above: Performed By: #### 2 4317-0 #### [facility] [address] [place] [address] Platelets (Bld) [#/Vol] 290 10*3/uL Normal 142-424 [facility] Comment on above: Performed By: #### 2 4317-0 #### [facility] [address] [place] [address] RBC (Bld) [#/Vol] 4.66 10*6/uL Normal 3.80-5.10 [facility] Comment on above: Performed By: #### 2 4317-0 #### [facility] [address] [place] [address] WBC (Bld) [#/Vol] 7.8 10*3/uL Normal 4.6-10.2 [facility] Comment on above: Performed By: #### 2 4317-0 #### [facility] [address] [place] [address] Nuclear IgG IA Ql (S)on 07-13 Bacteria identified Cx Nom (U) 1 ORGANISM 202 Abnormal >841259 CFU/mL Escherichia coli The organism value for [...] <=20 ug/ml Susceptible Invalid Interpretation Code [facility] Comment on above: Performed By: #### 2 9950-3 #### [facility] [address] [place] [address] Bacteria, Urine Moderate Abnormal None [facility] Comment on above: Performed By: #### 2 9950-3 #### [facility] [place] [facility] [address] [place] [address] Calcium Oxalate Crystals, Urine Occasional Abnormal None [facility] Comment on above: Performed By: #### 2 9950-3 #### [facility] [place] [facility] [address] [place] [address] RBC, Urine None Seen Normal 0-5 [facility] Comment on above: Performed By: #### 2 9950-3 #### [facility] [place] [facility] [address] [place] [address] WBC, Urine 0-5 Normal 0-5 [facility] Comment on above: Performed By: #### 2 9950-3 #### [facility] [place] [facility] [address] [place] [address] OPERATIVE NOon 04-10-2021 OPERATIVE NO HNO ID: [id number] Author: Paul Odonnell MD Service: General Surgery Author Type: Physician Type: Operative Report Filed: 04/10/2021 11:55 AM Note Text: [facility] - Operative Report JESSICA CARDOSO : 1965 AGE: 55. SEX: F PATIENT TYPE: I HOSP SVC: GENS LOCATION: [facility] ATTENDING PHYSICIAN: Paul Odonnell MD CSN NUMBER: [id number] DATE OF SURGERY/PROCEDURE: 03/29/2021 INCISION/PROCEDURE START TIME: 10:33 AM INCISION CLOSE/PROCEDURE END TIME: 11:30 AM PREOPERATIVE DIAGNOSIS: 1. Morbid obesity with a BMI of 45. 2. Hyperlipidemia. 3. Hypertension. 4. Obstructive sleep apnea. POSTOPERATIVE DIAGNOSIS: 1. Morbid obesity with a BMI of 45. 2. Hyperlipidemia. 3. Hypertension. 4. Obstructive sleep apnea. SURGEON: Paul Odonnell MD INSULATION HOSEMAN: Pb Upton MD SURGERY/PROCEDURE: 1. Laparoscopic sleeve [...] any posterior hiatal hernia was noted. A 36-Arabic bougie was passed in the stomach. Multiple [...] in throughout the operation. Paul Odonnell MD TA:[id number] /[id number] [facility] 03-31-2021 [facility] HNO ID: [id number] Author: Titus Colon MD Service: General Surgery [...] Center 04/11/2021 4:10 PM Paul Odonnell MD [id number] [facility] 05/01/2021 9:00 AM Barbara Martines, PhD GSPSMN [facility] Bl 05/09/2021 4:00 PM Paul Odonnell MD [id number] [facility] 05/10/2021 2:30 PM [facility]'s risk for 30-day readmission [...] of this (more content not included)... Normal [facility] NURSING PROGon 03-31-2021 NURSING PROG HNO ID: [id number] Author: Deepika Porras RN Service: ? Author Type: Registered Nurse Type: Nursing Progress Note Filed: 03/31/2021 1:36 AM Note Text: Nursing Progress Note Patient Name: Jessica Cardoso Patient Location: [facility]3B18/KT6K-[id number] 1999 (late entry) Patient alert and oriented [...] This note was completed by: Deepika Porras [facility] 03-30-2021 [facility] HNO ID: [id number] Author: Titus Colon MD Service: General Surgery [...] Center 04/11/2021 4:10 PM Paul Odonnell MD [id number] [facility] 05/01/2021 9:00 AM Barbara Martines, PhD GSPSMN [facility]g 05/09/2021 4:00 PM Paul Odonnell MD [id number] [facility] 05/10/2021 2:30 PM ROSALIND Mo M dg The patient's risk for 30-day readmission is determined using the following contributing factors: Pt variables contributing to increased readmission risk: 25 Most Recent BUN Result 13 Active Medication Orders 1 Insurance - Medicaid 1 Active (more content not included)... Normal [facility] CONSULTon 03-30-2021 CONSULT HNO ID: [id number] Author: Clifton Forde MD Service: General Surgery Author Type: Resident Type: Consults Filed: 03/30/2021 8:27 AM Note Text: PROGRESS NOTES - SURGICAL SERVICES Jessica Cardoso [id number] ASSESSMENT/PLAN: 55 year old year old female [...] Yamilex Forde MD PGY-2 General Surgery Surgery [employer] [phone] weekdays. Or [phone] weeknights (6pm - 6am) and weekends. SUBJECTIVE [...] surrounding erythema. DATA: Date 03/29/21699 - 03/30/21 0603/30/21699 - 03/31/21 0659 Shift 6826-5157 9585-4750 3013-1422 24 Hour Total 5924-6446 0805-8285 1600-7598 24 Hour Total INTAKE PO 200 150 350 PO 200 150 350 IV 1150 1150 Volume (mL) (ceFAZolin iv piggyback 2 g in D5W (iso-osmotic) 100 mL (ANCEF)) 100 100 Volume (mL) (magnesium sulfate 2 g in NaCl 0.9% 100 mL) 100 100 Volume (mL) (lactated ringers iv infusion) 950 950 Shift Total 6101 580 2353 OUTPUT Urine 200 400 600 Void (ml) [...] imaging results. CBC, Coags, BMP, Mg, Phos [facility] NURSING PROGon 03-30-2021 NURSING PROG HNO ID: [id number] Author: Theresa Rosas RN Service: ? Author [...] Paged team 1346: (late entry) administered compazine. [facility] NURSING PROG HNO ID: [id number] Author: Cookie Capellan RN Service: ? Author Type: Registered Nurse Type: Nursing Progress Note Filed: 03/30/2021 3:41 AM Note Text: Nursing Progress Note Patient Name: Jessica Cardoso Patient Location: [address]/KP1C-83 Daily Note: 0339: Pt's HR tachy at rest, this RN witnessed it as high as 112. Temp 99.3 F. Text page sent to [facility] to inform. This note was completed by: Cookie Capellan [facility] ANES POSTPROC EVALon 021 ANES POSTPROC EVAL HNO ID: [id number] Author: Gary Acosta MD Service: Anesthesiology Author [...] of care. Anesthesia Observations No Documentation SIGNATURE: Gray Acosta MD PATIENT NAME: Jessica Cardoso DATE: March 29, 2021 TIME: 12:15 PM CSN: [id number] [facility] ANES PRE-OPon 03-29-2021 ANES PRE-OP HNO ID: [id number] Author: Tiburcio Eisenberg MD Service: Anesthesiology Author Type: Anesthesiologist Type: Anesthesia Preprocedure Evaluation Filed: 03/29/2021 9:36 AM Note Text: ANESTHESIOLOGY DAY OF SURGERY NOTE : 1965 Procedure Information Date/Time: 03/29/21 0945 Procedure: LAPAROSCOPIC LONGITUDINAL GASTRECTOMY, GASTRIC RESTRICTIVE PROCEDURE (N/A ) Location: [facility] OR10 / [facility] Surgeons: Pual Odonnell MD Estimated body mass index is [...] March 29, 2021 TIME: 9:34 AM CSN: [id number] [facility] BRIEF OP NOTon 03-29-2021 BRIEF OP NOT HNO ID: [id number] Author: Pb Upton MD Service: General Surgery Author Type: Resident Type: Brief Op Note Filed: 03/29/2021 12:27 PM Note Text: BRIEF OPERATIVE NOTE [facility] LOG ID: [id number] SURGERY/PROCEDURE DATE: 03/29/2021 INCISION/PROCEDURE START TIME: 10:33 AM INCISION CLOSE/PROCEDURE END TIME: 11:30 AM SURGEON(S) AND INSULATION HOSEMAN(S): Surgeon(s) and Role: * Paul Odonnell MD [...] 29, 2021 TIME: 12:26 PM PAGER/CONTACT #: [facility] NURSING PROGon 03-29-2021 NURSING PROG HNO ID: [id number] Author: Deena Atkinson RN Service: ? Author [...] (RECOMMENDATION): None Electronically Signed By: Deena Atkinson [facility] SURGICAL PATHOLOGYon 021 SURGICAL PATHOLOGY Specimen originated from [facility] Specimen #: [id number] Submitting Physician: PAUL ODONNELL MD FINAL DIAGNOSIS Portion of stomach, excision - Segment of gastric body/fundus with no diagnostic abnormality. PILY/gerard 04/02/2021 Mal Riggs M.D. (Electronic Signature) SPECIMEN [...] The serosal surface is kruse-pink and smooth. Solid Plasterer sections are submitted in four cassettes. / 03/29/2021 Gross examination performed at [place] [address] Date of Report: 04/02/2021 Date of Procedure: 03/29/2021 Date of Receipt: 03/29/2021 Submitted by: PAUL ODONNELL MD Location: [facility] Diagnostic interpretation performed at [facility], [address] [place] [address]. CLIA Number: [id number] Normal [facility] THERAPY NTon 03-29-2021 THERAPY NT HNO ID: [id number] Author: Tete Knapp RRT Service: Respiratory Therapy Author Type: Respiratory Therapist Type: Therapy (PT/OT/Speech/Resp) Filed: 03/29/2021 4:24 PM Note Text: Patient does not wear CPAP at home. No unit in the room. Tete Knapp RRT Normal [facility] HISTORY PHYSICALon HISTORY PHYSICAL HNO ID: [id number] Author: Deanna Bourne PA-C Service: ? Author Type: Physician Supervisor [employer] Type: HANDP Filed: 03/26/2021 8:17 AM Note [...] fevers. Neuro: No history of TIA's, stroke, SHORER tumor, impaired sensorium, hemiplegia, paraplegia or quadraplegia. No neurological symptoms or problems. Respiratory: No history of current cough or dyspnea, or pneumonia in the past 6 weeks. No history of respiratory/pulmonary symptoms or problems. Cardiovascular: No history of HTN requiring medication, no history of angina, CHF, IL, cardiac surgery or stents. Denies rest pain, gangrene or revascularization/amputation for PVD. No history of cardiovascular symptoms or problems. GI: Positive for GERD, Negative for Nausea, Vomiting, Abdominal pain, Difficulty swallowing, GI bleed < 30 days : No history of dysuria, frequency or incontinence,, stones or chronic kidney disease RUG SETTER VELVET: Negative for abnormal vaginal bleeding, abnormal vaginal [...] history of (more content not included)... Normal [facility] Type and SCR (30D)on 021 ABO/RH(D) Positive Normal [facility] Comment on above: Performed By: #### T SCR30 ####[place] [id number] Basic Metabolic Panlon 12-28 Anion gap [Moles/Vol] 11 mmol/L Normal 9-18 [facility] Comment on above: Performed By: #### C BC, BMP #### [place] [id number] Calcium [Mass/Vol] 8.7 mg/dL Normal 8.5-10.5 [facility] Comment on above: Performed By: #### C BC, BMP #### [place] [phone] Chloride [Moles/Vol] 107 mmol/L Normal 98-110 [facility] Comment on above: Performed By: #### C BC, BMP #### [place] [phone] CO2 [Moles/Vol] 23 mmol/L Normal 23-32 [facility] Comment on above: Performed By: #### C BC, BMP #### [place] [phone] Creatinine [Mass/Vol] 0.52 mg/dL Low 0.70-1.40 [facility] Comment on above: Performed By: #### C BC, BMP #### [place] [id number] eGFR- Amer. >60 Normal >60 [facility] Comment on above: Performed By: #### C BC, BMP #### [place] [id number] eGFR-All Other Races >60 Normal >60 [facility] Comment on above: Result Comment: eGFR (Estimated [...] Performed By: #### C BC, BMP #### [place] [phone] Glucose [Mass/Vol] 106 mg/dL High 65-100 [facility] Comment on above: Performed By: #### C ADRIAN, BMP #### [place] [phone] Potassium [Moles/Vol] 4.0 mmol/L Normal 3.5-5.0 [facility] Comment on above: Performed By: #### C BC, BMP #### [place] [phone] Sodium [Moles/Vol] 141 mmol/L Normal 132-148 [facility] Comment on above: Performed By: #### C BC, BMP #### [place] [phone] Urea nitrogen [Mass/Vol] 11 mg/dL Normal 8-25 [facility] Comment on above: Performed By: #### C BC, BMP #### [place] [phone] CBCon 12-28-2020 Absolute nRBC <0.01 Normal <0.01 [facility] Comment on above: Performed By: #### C BC, BMP #### [phone] Erythrocyte distribution width (RBC) [Ratio] 12.5 % Normal 11.5-15.0 [facility] Comment on above: Performed By: #### C BC, BMP #### [place] [phone] Hematocrit (Bld) [Volume fraction] 37.7 % Normal 36.0-46.0 [facility] Comment on above: Performed By: #### C BC, BMP #### [place] [phone] Hemoglobin (Bld) [Mass/Vol] 12.1 g/dL Normal 11.5-15.5 [facility] Comment on above: Performed By: #### C BC, BMP #### [place] [phone] MCH 28.1 pG Normal 26.0-34.0 [facility] Comment on above: Performed By: #### C BC, BMP #### [place] [phone] MCHC (RBC) [Mass/Vol] 32.1 g/dL Normal 30.5-36.0 [facility] Comment on above: Performed By: #### C BC, BMP #### [place] [phone] MCV (RBC) [Entitic vol] 87.7 fL Normal 80.0-100.0 [facility] Comment on above: Performed By: #### C BC, BMP #### [place] [phone] Platelet mean volume (Bld) [Entitic vol] 9.6 fL Normal 9.0-12.7 [facility] Comment on above: Performed By: #### C BC, BMP #### [place] [phone] Platelets (Bld) [#/Vol] 226 10*3/uL Normal 150-400 [facility] Comment on above: Performed By: #### C BC, BMP #### [place] [phone] RBC (Bld) [#/Vol] 4.30 10*6/uL Normal 3.90-5.20 [facility] Comment on above: Performed By: #### C BC, BMP #### [facility] [address] [place] [address] WBC (Bld) [#/Vol] 8.65 10*3/uL Normal 3.70-11.00 [facility] Comment on above: Performed By: #### C BC, BMP #### [place] [id number] [place] [address] CNDSon 12-28-2020 CNDS HNO ID: [id number] Author: Loren Boyd MD Service: General Surgery [...] was uncomplicated. Patient was then returned to [facility] where her post-op recovery was essentially [...] Center 01/07/2021 10:50 AM [facility] The patient's risk for 30-day readmission is determined using the following contributing factors: Pt variables contributing to increased readmission risk: 15 Most Recent BUN Result 8 Active Medication Orders 1 Insurance - Medicaid 1 Active Anticoagulant SIGNATURE: Loren Boyd MD DATE: December 28, 2020 TIME: 7:46 AM [facility] NURSING PROGon 12-28-2020 NURSING PROG HNO ID: [id number] Author: Maicol Monae RN Service: ? Author Type: Registered Nurse Type: Nursing Progress Note Filed: 12/28/2020 4:08 AM Note Text: Nursing Progress Note Patient Name: Jessica Cardoso Patient Location: Daily Note: 0200 Patients IV removed for possible infiltration, ice applied and elevated, new IV placed. Paged house to make them aware. This note was completed by: Maicol Monae [facility] NURSING PROG HNO ID: [id number] Author: Maicol Monae RN Service: ? Author Type: Registered Nurse Type: Nursing Progress Note Filed: 12/27/2020 10:25 PM Note Text: Nursing Progress Note Patient Name: Jessica Cardoso Patient Location: / Daily Note: 20:20 patients heartrate sustaining in 120's, patient asymptomatic but in pain, gave 5mg of oxycodone and paged surgery. 20:30 Dr. Guzman came to assess patient, changed pain meds and advised to monitor and manage pain. This note was completed by: Maicol Monae [facility] ANES POSTPROC EVALon 021 ANES POSTPROC EVAL HNO ID: [id number] Author: Donnell Chicas MD Service: Anesthesiology Author Type: Anesthesiologist Type: Anesthesia Postprocedure Evaluation Filed: 12/27/2020 5:02 PM Note Text: POST ANESTHESIA EVALUATION NOTE : 1965 Procedure Summary Date: 12/27/20 Room / Location: OR06 / [facility] Anesthesia Start: 1222 Anesthesia Stop: 153 Procedure: LAPAROSCOPIC ADRENALECTOMY (Right Abdomen) Diagnosis: Adrenal [...] December 27, 2020 TIME: 4:54 PM CSN: [id number] [facility] ANES PRE-OPon 12-27-2020 ANES PRE-OP HNO ID: [id number] Author: Abilio Hansen DO Service: Critical Care [...] 0854 Pulse 90 12/27/20 0854 Resp 18 12/27/20853 Temp 36 ?C (96.8 ?F) 12/27/20853 SpO2 [...] December 27, 2020 TIME: 9:06 AM CSN: [id number] [facility] BRIEF OP NOTon 12-27-2020 BRIEF OP NOT HNO ID: [id number] Author: Kadi Flanagan MD Service: General Surgery Author Type: Resident Type: Brief Op Note Filed: 12/27/2020 3:28 PM Note Text: Attestation signed by Jesus Lobato MD at 12/27/2020 3:37 PM [id number] Jesus Lobato MD BRIEF OPERATIVE / PROCEDURE NOTE LOG ID: [id number] Surgery/Procedure Date: 12/27/2020 Incision/Procedure Start Time: 1:31 PM Incision Close/Procedure End Time: 3:13 PM Surgeon(s)/Proceduralist(s) and Supervisor Research Shop(s): Surgeon(s) and Role: * Jesus Lobato MD [...] December 27, 2020 TIME: 3:27 PM Normal [facility] Confirm Blood Typeon 021 ABO/RH(D) Positive Normal [facility] Comment on above: Performed By: #### C ONABO ####[facility] [place], [place] [id number] HISTORY PHYSICALon 1 HISTORY PHYSICAL HNO ID: [id number] Author: Kadi Flanagan MD Service: General Surgery [...] DATE: December 27, 2020 TIME: 9:45 AM [facility] NURSING PROGon 12-27-2020 NURSING PROG HNO ID: [id number] Author: Barbara Calix RN Service: Nursing Author Type: Registered Nurse Type: Nursing Progress Note Filed: 12/27/2020 8:02 PM Note Text: Nursing Progress Note Patient Name: Jessica Cardoso Patient Location: [facility]/ Daily Note: 1745 Received patient from PACU, alert, Abdominal Stab sites intact. Up to bathroom with contact guard, gait steady. This note was completed by: Barbara Calix [facility] NURSING PROG HNO ID: [id number] Author: Valencia Abdul RN Service: Nursing Author [...] (RECOMMENDATION): None Electronically Signed By: Valencia Abdul [facility] OPERATIVE NOon 12-27-2020 OPERATIVE NO HNO ID: [id number] Author: Jesus Lobato MD Service: General Surgery Author Type: Physician Type: Operative Report Filed: 12/28/2020 10:33 AM Note Text: [facility] - Operative Report JESSICA CARDOSO DOB: 1965 AGE: 55. SEX: F PATIENT TYPE: I HOSP SVC: GENS LOCATION: [facility] ATTENDING PHYSICIAN: Jesus Lobato M.D. CSN NUMBER: [id number] DATE OF SURGERY/PROCEDURE: 12/27/2020 INCISION/PROCEDURE START TIME: 1:31 PM INCISION CLOSE/PROCEDURE END TIME: 3:13 PM PREOPERATIVE DIAGNOSIS: Indeterminate right adrenal mass, nonfunctional. POSTOPERATIVE DIAGNOSIS: Indeterminate right adrenal mass, nonfunctional. SURGEON: Jesus Lobato M.D. INSULATION HOSEMAN: Adrien Flanagan MD. SURGERY/PROCEDURE: Laparoscopic right adrenalectomy. [...] this procedure with assistance. Jesus Lobato M.D. [id number] Normal [facility] SURGICAL PATHOLOGYon 021 SURGICAL PATHOLOGY Specimen originated from [facility] Specimen #: [id number] Submitting Physician: Jesus Lobato M.D. FINAL DIAGNOSIS Right adrenal, adrenalectomy - Adrenal cortical adenoma, 4.8 cm, fully excised. RMAkua/KIERRA/marina 12/31/2020 Vivienne Rodriguez MD (Electronic Signature) SPECIMEN [...] cortical tissue and virtually no medullary component. Solid Plasterer sections are submitted as follows: A1-A6 adrenal mass, A7 uninvolved adrenal parenchyma. BF/arely 12/28/2020 Gross examination performed at [facility], [address] [place] [address] Date of Report: 01/01/2021 Date of Procedure: 12/27/2020 Date of Receipt: 12/27/2020 Submitted by: Jesus Lobato M.D. Location: [facility] Diagnostic interpretation performed at [facility], [address] [place], [place] [address]. CLIA Number: [id number] Normal [facility] Type and SCR (30D)on 021 ABO/RH(D) Positive Normal [facility] Comment on above: Performed By: #### T SCR30 ####[facility] [place], [place] [phone] HISTORY PHYSICALon HISTORY PHYSICAL HNO ID: [id number] Author: Shade Hilton MD Service: General Surgery [...] 19, 2020 TIME: 9:50 AM PAGER/CONTACT #: [phone] [facility] NURSING PROGon 10-19-2020 NURSING PROG HNO ID: [id number] Author: Maris Caruso RN Service: ? Author [...] (RECOMMENDATION): None Electronically Signed By: Maris Coronel [facility] SURGICAL PATHOLOGYon 021 SURGICAL PATHOLOGY Specimen originated from [facility] Specimen #: [id number] Submitting Physician: Jesus Lobato M.D. FINAL DIAGNOSIS [...] in one cassette. Gross examination performed at [facility], [address] [place] [address] 10/19/2020 5:46:23 PM Date of Report: 10/22/2020 Date of Procedure: 10/19/2020 Date of Receipt: 10/19/2020 Submitted by: Jesus Lobato M.D. Location: [facility] Diagnostic interpretation performed at [facility], [facility] [place] [address]. CLIA Number: [id number] Normal [facility] COVID-19 Antigenon COVID-19 Antigen Results called at [...] This test was developed and its performance Mrayellen Disclaimer characteristic determined by [employer] and Maryellen Disclaimer validated at [facility]. This Maryellen Disclaimer test has not been [...] Emergency Use Authorization for Coronavirus Maryellen Disclaimer iseas during the Public Health Emergency) Maryellen Disclaimer [...] is terminated or revoked sooner. PERFORMED BY: [place] [address] PATHOLOGIST PROCESS SAFETY MANAGEMENT ENGINEER DAVID THOMAS M.D. Normal [facility] Comment on above: Performed By: #### S OFIAPOS, COVID-19 MARYELLEN #### [address] Maryellen Ag Positiveon 06-26-19 Maryellen Ag Positive Positive Normal Negative [facility] Comment on above: Result Comment: This is a duplicate Maryellen SARS Antigen (ZARINA) result to be used for statistical tracking purpose only. PERFORMED BY: [place] [address] PATHOLOGIST PROCESS SAFETY MANAGEMENT ENGINEER DAVID THOMAS M.D. Performed By: #### S OFIAPOS, COVID-19 MARYELLEN #### [facility] [address] [place], [place] [id number] [facility] Vital Signs Date Time Vital Sign Value Performing Clinician Julissa melissa 08-28-2021 16:04-0400 SaO2% (BldA) [Mass fraction] 96 % Wyatt Tapia MD Work Phone: [facility] 08-28-2021 15:56-0400 Body temperature 97.81 [degF] Wyatt Tapia MD Work Phone: [facility] 08-28-2021 15:56-0400 Diastolic blood pressure 85 mm[Hg] Wyatt Tapia MD Work Phone: [facility] 08-28-2021 15:56-0400 Heart rate 99 /min Wyatt Tapia MD Work Phone: [facility] 08-28-2021 15:56-0400 Respiratory rate 14 /min Wyatt Tapia MD Work Phone: [facility] 08-28-2021 15:56-0400 Systolic blood pressure 137 mm[Hg] Wyatt Tapia MD Work Phone: [facility] 08-28-2021 11:00-0400 Body mass index (BMI) [Ratio] 38.52 kg/m2 Wyatt Tapia MD Work Phone: [facility] 08-28-2021 11:00-0400 Body weight 101.8 kg Wyatt Tapia MD Work Phone: [facility] 08-26-2021 10:00-0400 Body height 162.6 cm Wyatt Tapia MD Work Phone: [facility] Encounters Encounter Date Encounter Type Care Provider Facility Start: 03-07-2024 ambulatory Vidya Lerneri Facility:[facility] Start: 10-16-2022 ambulatory NARENDRANATH LAKSHMIPATHY . Facility: Start: 07-29-2022 ambulatory NARENDRANATH LAKSHMIPATHY . Facility: Start: 07-24-2022 End: 07-25-2022 ambulatory NARENDRANATH LAKSHMIPATHY . Facility: Start: 07-03-2022 End: 07-04-2022 ambulatory NARENDRANATH LAKSHMIPATHY . Facility: Start: 05-01-2022 End: 05-02-[address] KAITLIN WILHELM . Facility:[facility] Start: 04-22-2022 Encounter for preprocedural laboratory examination DR KAITLIN WILHELM . [facility] Start: 04-01-2022 End: 04-01-[address] YANETH GARCIA . Facility: Start: 03-28-2022 End: 03-29-[address] KAITLIN [...] without abnormal findings DR YANETH GARCIA . [facility] Start: 11-19-2021 End: 11-20-[address] YANETH GARCIA . Facility:[facility] Start: 11-19-2021 End: 11-20-2021 Encounter for general adult medical examination without abnormal findings DR YANETH GARCIA . Facility:[facility] Start: 10-10-2021 End: 10-11-[address] KAITLIN WILHELM . Facility:[facility] Start: 08-30-2021 End: 09-28-[address] DOCTOR THOMAS Facility:[facility] Start: 08-28-2021 End: 08-28-2021 ambulatory WYATT TAPIA [facility] Start: 08-28-2021 End: 08-28-2021 Evaluation and management of inpatient Wyatt Tapia MD Work Phone: [facility] Start: 08-28-2021 End: 08-28-2021 Subsequent hospital visit by physician Wyatt Tapia MD Work Phone: [facility] Start: 08-26-2021 End: 08-27-[address] DOCTOR THOMAS Facility:[facility] Start: 07-14-2021 Refill Paul Odonnell MD Work Phone: General Surgery Comment on above: Refill Request Start: 05-10-2021 End: 05-10-2021 ambulatory PAUL ODONNELL Facility:[facility] Procedures Date Procedure Procedure Detail Performing Clinician Start: 08-28-2021 POCT GLUCOSE BLOOD Bita Tapia MD Work Phone: Start: 08-28-2021 Radiologic examinati on pelvis 1/2 views Zafar ACOSTA Work Phone: Start: 08-28-2021 POCT GLUCOSE BLOOD Bita Tapia MD Work Phone: Start: 03-22-2021 Antibody screen Comment on above: Performed By: #### T SCR30 ####[place] [id number] [place] [phone] Start: 12-14-2020 Antibody screen Comment on above: Performed By: #### T SCR30 ####[facility] [place] [phone] Plan of Treatment Date Care Activity Detail Author Start: 12-14-2025 LIPID SCREEN LIPID SCREEN [facility] Start: 03-22-2024 DIABETES SCREEN DIABETES SCREEN [facility] Start: 08-02-2022 Hypertension/CHF/CAD Annual BMP Blood Test Hypertension/CHF/CAD Annual BMP Blood Test [facility] Start: 08-28-2021 End: 08-28-2021 Arthrp acetblr/prox fem prostc agrft/algrft ARTHROPLASTY HIP TOTAL Unilateral primary osteoarthritis, right hip 08/28/2021 12:57 PM EDT [facility] Start: 07-01-2021 Adolescent depression screening assessment Depression Screening [facility] Start: 07-01-2021 Hepatitis C screening Hepatitis C Screening [facility] Start: 07-01-2021 HIV screening HIV Screening [facility] Start: 07-01-2021 Lipid panel Cholesterol Screening (Lipid Panel) [facility] Start: 07-01-2021 Screening for malignant neoplasm of breast Breast Cancer Screening [facility] Start: 07-01-2021 Screening for malignant neoplasm of colon Colorectal Cancer Screening: Colonoscopy [facility] Start: 07-01-2021 Screening for malignant neoplasm of lung Lung Cancer Screening (Low Dose CT) [facility] Start: 07-01-2021 Social Influencers of Health Screening Social Influencers of Health Screening [facility] Start: 07-17-2019 Influenza vaccination LUNG CANCER SCREENING [facility] Start: 2014 SHINGRIX VACCINE (1 of 2) SHINGRIX VACCINE (1 of 2) [facility] Start: 2014 Zoster Vaccines (1 of 2) Zoster Vaccines (1 of 2) [facility] Start: 2009 COLOGUARD (FIT-DNA) COLOGUARD (FIT-DNA) [facility] Start: 2009 Colonoscopy COLONOSCOPY [facility] Start: 2009 COLORECTAL CANCER SCREENING COLORECTAL CANCER SCREENING [facility] Start: [address] COLONOGRAPHY [facility] Start: 2009 FECAL OCCULT BLOOD FECAL OCCULT BLOOD [facility] Start: 2009 SIGMOIDOSCOPY SIGMOIDOSCOPY [facility] Start: 2004 Mammography MAMMOGRAM [facility] Start: 1994 HPV TESTING HPV TESTING [facility] Start: 1985 PAP TESTING PAP TESTING [facility] Start: 1985 Screening for malignant neoplasm of cervix Cervical Cancer Screening: Pap Smear [facility] Start: 07-17-1983 DTaP,Tdap,and Td Vaccines (1 - Tdap) DTaP,Tdap,and Td Vaccines (1 - Tdap) [facility] Start: 07-17-1983 Urine microalbumin profile DTAP,TDAP,TD (1 - Tdap) [facility] Start: 1982 HEPATITIS C SCREENING HEPATITIS C SCREENING [facility] Start: 1982 HIV SCREENING HIV SCREENING [facility] Start: 1976 Adult depression screening assessment DEPRESSION SCREENING [facility] Glucose [Mass/volume ] in Serum or Plasma POCT Glucose, blood Point of Care Testing-Docked Device Routine 08/28/2021 3:42 PM EDT [facility] Work Phone: Immunizations Immunization Date Immunization Notes Care Provider Den howard 12-28-2020 influenza, injectabl e, quadrivalent, preservative free Paul Odonnell MD Work Phone: [facility] Payers Date Payer Category Payer Medicaid [id number] 2020 Medicaid [id number] 2018 Medicaid 1965 Unknown [id number] 2.16.8 [id number] 1965 Unknown [id number] 2.16.84 0.1.882041.3.579.2.593 1965 Unknown [id number] 2.16.84 0.1.217981.3.579.2.593 1964 Unknown [id number] 2.16.84 0.1.206455.3.579.2.593 1964 Unknown [id number] 2.16.84 0.1.222282.3.579.2.593 1964 Unknown [id number] 2.16.84 0.1.278075.3.579.2.593 1964 Unknown [id number] 2.16.84 0.1.985325.3.579.2.593 1964 Unknown [id number] 2.16.84 0.1.544253.3.579.2.593 1964 Unknown [id number] 2.16.84 0.1.102014.3.579.2.593 1964 Unknown [id number] 2.16.84 0.1.266414.3.579.2.593 1964 Unknown [id number] 2.16.84 0.1.335272.3.579.2.593 1964 Unknown [id number] 2.16.84 0.1.698882.3.579.2.593 1964 Unknown [id number] 2.16.84 0.1.469504.3.579.2.593 1964 Unknown [id number] 2.16.84 0.1.561433.3.579.2.593 1964 Unknown [id number] 2.16.84 0.1.764451.3.579.2.593 1964 Unknown [id number] 2.16.84 0.1.174985.3.579.2.593 1964 Unknown [id number] 2.16.84 0.1.788147.3.579.2.593 1964 Unknown [id number] 2.16.84 0.1.630369.3.579.2.593 1964 Unknown [id number] 2.16.84 0.1.931622.3.579.2.593 1964 Unknown [id number] 2.16.84 0.1.063262.3.579.2.593 1964 Unknown [id number] 2.16.84 0.1.470896.3.579.2.593 1964 Unknown [id number] 2.16.8 40.1.333341.3.579.2.727 1959 Medicaid [id number] Social History Date Type Detail Facility Start: 12-12-2020 End: 08-26-2021 Tobacco smoking status NHIS Ex-smoker [facility] Work Phone: Start: 08-27-2015 End: 04-13-2018 History of tobacco use Current smoker [facility] Work Phone: End: 04-13-2018 History of tobacco use Cigarette Smoker [facility] Work Phone: Start: 12-12-2020 Cigarettes smoked current (pack per day) - Reported 1 [facility] Start: 12-12-2020 End: 08-26-2021 Tobacco use and exposure Smokeless tobacco non-user [facility] Work Phone: Start: 12-12-2020 History SDOH Alcohol Comment 2-3 per month [facility] Start: 1965 Sex Assigned At Female [facility] Start: 08-28-2021 Alcohol intake Ex-drinker (finding) [facility] Start: 1965 Sex Assigned At Not on file T [facility] Start: 08-18-2021 End: 08-28-2021 Exposure to SARS-CoV-2 (event) Not sure [facility] Medical Equipment Procedure Code Equipment Code Equipment Origin al Text Equipment Identifier Dates G7 Finned 4 H Sh ell 54mm F - Sn/A - [id number] ()[id number] [id number]( 21)N/A, [id number] FDA Start: 08-28-2021 Liner G7 Neutral Ve 36mm F - Sn/A - [id number] ()[id number] [id number] (21)N/A, [id number] FDA Start: 08-28-2021 G7 Screw 6.5mm X 30mm - Sn/A - [id number] ()[id number] [id number]( 21)N/A, [id number] FDA Start: 08-28-2021 Complete Ho Collarless Sz 6 - Sn/A - [id number] ()[id number] [id number]( 21)N/A, [id number] FDA Start: 08-28-2021 Hip Hd Fem 03/26 Blx 36mm -3.5 - Sn/A - [id number] ()[id number] [id number]( 21)N/A, [id number] FDA Start: 08-28-2021 Clinical Notes 12-27-2020 to 07-24-2022 Shani Matamoros, RN - 08/28/2021 5:33 PM Lily Hyman, PT - 08/28/2021 4:30 PM Jaxon Hall, RN - 08/28/2021 1:48 PM Rocky Smith RN - 08/28/2021 3:44 PM EDT Note [...] be discharged home after meeting criteria. [facility] 07-03-2022 Note CONSULTATION CONSULTATION DATE: 07/03/2022 TO: [...] p.o. daily to b.i.d., as well as [place] 5 mg b.i.d., activity modification and a home exercise program. She reports she does respond to baclofen 10 mg at h.s. RECOMMENDATIONS: I have recommended a right knee joint injection. We will obtain urine toxicology screen at today's visit. [facility] 05-01-2022 Note CONSULTATION CONSULTATION DATE: 05/01/2022 HISTORY [...] 10 mg q.h.s., Celebrex 200 mg daily, [place] 5/325 b.i.d. Patient's REVIEW OF SYSTEMS / [...] three months' time unless otherwise indicated. [facility] 03-20-2022 Note CONSULTATION CONSULTATION DATE: 03/20/2022 HISTORY [...] Current medications include Celebrex 200 mg daily, [place] 5/325 b.i.d., baclofen 10 mg q. h.s [...] heat and vitamins. We will refill her [place] and baclofen at the set dose and frequency. Patient agrees to move forward with the procedure and will be followed up in the clinic thereafter. [facility] 12-12-2021 Note CONSULTATION CONSULTATION DATE: 12/12/2021 HISTORY [...] Current medications include Celebrex 200 mg daily, [place] 5/325 b.i.d., baclofen 10 mg q.h.s. and [...] refill for baclofen 10 mg q.h.s and [place] 5/325 b.i.d. will be sent to her pharmacy. Patient agrees to move forward and be followed up in the clinic post procedure. [facility] 10-10-2021 Note CONSULTATION CONSULTATION DATE: 10/10/2021 This [...] she had a total hip replacement in [place] and feels great relief. Her pain is four out of 10 today. She does have right knee pain with known osteoarthritis and bone on bone to the lateral aspect. She has received a steroid knee injection on 10/07/2021 which gave her a fair amount of relief. Her current medications include Celebrex 200 mg q. day, Baclofen 10 mg q.h.s. and [place] 5/325 t.i.d. The patient feels she doesn't [...] knee osteoarthritis. PLAN: We will refill her [place] but decrease the dose to 5/325 b.i.d. [...] of care and all questions were answered. [facility] Signed and Approved by: THERESA WAGNER . 10/17/2021 10:22:00 [facility] 08-28-2021 History of Present illness Narrative [...] bad R knee per report. Pt gait [id number] with antalgic gait pattern. Pt with 1+1 [...] apnea positive test on cpap second test neg 2019 currently cont on cpap Past Surgical [...] Level of Function: Prior Function Level of Scre[place]: Independent with mobility and functional transfers Prior [...] Gait Training Activity 1: Gait with FWW [id number] SBA Gait Training Activity 2: Curb step [...] home Medical Staff Made Aware: Yes Comments: Shani RN notified Plan Treatment/Interventions: Functional transfer training, [...] of the procedure. documented in this encounter [facility] 08-28-2021 Procedure note Handoff report given to MARCELA Mcleod. Jessica Cardoso [address] [facility], A Member of [facility] OPERATIVE REPORT PATIENT NAME: Jessica Cardoso DATE OF : 1965 CSN: [id number] SURGEON: Wyatt Tapia MD, FACS DATE OF SERVICE: 08/28/2021 DATE OF SURGERY: 08/28/2021 PREOPERATIVE DIAGNOSIS: OA right hip (M16.11) POSTOPERATIVE DIAGNOSIS: OA right hip (M16.11) PROCEDURE: Primary Right Total Hip Arthroplasty utilizing the direct lateral approach (08369) Femoral Component: [employer] Avenir Complete Collarless Stem , High Offset Size: 6 Acetabular Component: G7 4 Hole Finned Acetabular Shell , 54mm Liner: G7 Vivacit-E Neutral, F, 36mm Screws: G7 Acetabular Screw(s) 6.5x30mm (-); Head Neck Unit: [employer] Ceramic Taper , 36mm , -3.5 ATTENDING SURGEON: Wyatt Tapia MD, FACS INSULATION HOSEMAN: Zafar Rivas PA-C INDICATIONS: Patient is a [...] satisfactory position and alignment of the components. INSULATION HOSEMAN/ATTENDING PHYSICIAN: Zafar Rivas PA-C assisted with proper [...] He assisted with the dislocation of the [place] hip, as well as dislocation/relocation of the [...] Wyatt Tapia MD, FACS on 08/28/2021 16:59:00 [facility], A Member of [facility] OPERATIVE REPORT PATIENT NAME: Jessica Cardoso DATE OF : 1965 CSN: [id number] SURGEON: Wyatt Tapia MD, FACS DATE OF SERVICE: 08/28/2021 DATE OF SURGERY: 08/28/2021 REF [id number] LOT [id number] G7 Finned Acetabular Shell 54MM SHELL SIZE F LINER SIZE Acetabular shell Use By 2031-04-19 () [id number] () [id number] (45) [id number] REF [id number] LOT [id number] G7 Vivacit-E Size F 36.00 Millimeter Non-constrained polyethylene acetabular liner Use By 2026-07-03 () [id number] () [id number] (93) [id number] REF [id number] LOT [id number] G7 ACETABULAR SCREW 6.5MM DIAMETER 30 SCREW LGTH Orthopaedic bone screw, non-bioabsorbable, sterile Use By 2031-06-02 () [id number] (76) [id number] (32) [id number] REF [id number] LOT [id number] Avenir Complete Size 6 Coated hip femur prosthesis, modular Use By 2025-11-28 () [id number] (28) [id number] (10) [id number] REF [id number] LOT [id number] Biolox delta 36/-3.5 'S' BIOLOX DELTA, CERAMIC FEMORAL HEAD, S, 36/-3.5, TAPER 03/26 Use By 2031-05-22 () [id number] (17 [id number] (79) [id number] . documented in this encounter [facility] 08-28-2021 History and physical note History and Physical Update ( H&P completed within the previous thirty days ) I personally reviewed the History and Physical, interviewed and examined the patient prior to surgery. No changes have occurred in the patient's condition since the History and Physical was completed. documented in this encounter [facility] 08-26-2021 Hospital course Narrative Pre-Surgery Instructions: Medication [...] ordered/prescribed by your pcplast dose 08/21 HYDROcodone-acetaminophen ([place]) 5-325 mg per tablet Continue to take [...] your pcp Additional Instructions: Medication instructions per [facility] Pt states currently using CPAP - Has [...] prior to your surgery. 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 If Outpatient, these additional instructions apply: An adult must stay with you the whole time you are here and drive you home. An adult must stay with you at home for 24 hours due to Anesthesia. If you have NEREIDA, you are required to stay 3 hours after your surgery before we can discharge you. documented in this encounter [facility] 03-29-2021 Note HNO ID: [id number] Author: Estefany Cook APRN.TRUST OFFICER Service: Anesthesiology Author Type: Nurse Dog Sitter Type: Anesthesia Procedure Notes Filed: 03/29/2021 10:48 AM Note Text: ANESTHESIOLOGY PROCEDURE NOTE Airway General Information Procedure Start Time/Medication Administration: 03/29/2021 10:23 AM Patient location during procedure: OR Timeout Performed Pre-procedure: timeout performed Consent Obtained: Yes Patient identity confirmed: arm band, care steam room attendant and patient Staffing Anesthesiologist: Tiburcio Eisenberg MD TRUST OFFICER: Estefany Cook APRN.TRUST OFFICER Performed by: JIA Indications and Patient Condition [...] attempts at approach: 1 SIGNATURE: Estefany Cook APRN.TRUST OFFICER PATIENT NAME: Jessica Cardoso DATE: March 29, 2021 TIME: 10:47 AM CSN: [id number] [facility] 12-28-2020 Note HNO ID: [id number] Author: Loren Boyd MD Service: General Surgery Author Type: Resident Type: Progress Notes Filed: 12/28/2020 7:46 AM Note Text: GENERAL SURGERY PROGRESS NOTE Jessica Cardoso [id number] ASSESSMENT AND PLAN 55 year old female [...] General Loren En Oliver PGY-1 General Surgery [facility] 12-27-2020 Note HNO ID: [id number] Author: Estefany Cook APRN.CRNA Service: Anesthesiology Author Type: Nurse Dog Sitter Type: Anesthesia Procedure Notes Filed: 12/27/2020 1:57 [...] Imaging Guidance Used: No SIGNATURE: Estefany Cook APRN.TRUST OFFICER PATIENT NAME: Jessica Cardoso DATE: December 27, 2020 TIME: 1:57 PM CSN: [id number] [facility] 12-27-2020 Note HNO ID: [id number] Author: Estefany Cook APRN.TRUST OFFICER Service: Anesthesiology Author Type: Nurse Dog Sitter Type: Anesthesia Procedure Notes Filed: 12/27/2020 1:56 [...] 1 Airway not difficult SIGNATURE: Estefany Cook APRN.TRUST OFFICER PATIENT NAME: Jessica Cardoso DATE: December 27, 2020 TIME: 1:54 PM CSN: [id number] [facility] 12-27-2020 Note HNO ID: [id number] Author: Estefany Cook APRN.TRUST OFFICER Service: Anesthesiology Author Type: Nurse Dog Sitter Type: Anesthesia Procedure Notes Filed: 12/27/2020 1:52 [...] well with no complications SIGNATURE: Estefany Cook APRN.TRUST OFFICER PATIENT NAME: Jessica Cardoso DATE: December 27, 2020 TIME: 1:50 PM CSN: [id number] [facility] Evaluation note Diagnosis Unilateral primary osteoarthritis, right hip documented in this encounter [facility] Discharge instructions* Attachments The following attachments cannot be sent through Care Everywhere. * Hip Replacement: Total: General Info (Honduran) * Fall Prevention (Honduran) [facility]* Auth/Cert Specialty Diagnoses / Procedures Referred By Renate molina Referred To Contact Diagnoses Unilateral primary osteoarthritis, right hip M16.11 Procedures KS ARTHROPLASTY ACETABULAR AND PROXIMAL FEMORAL PROSTHETIC REPLACEMENT (TOTAL HIP ARTHROPLASTY) WITH OR WITHOUT AUTOGRAFT OR ALLOGRAFT KS ARTHROPLASTY ACETABULAR AND PROXIMAL FEMORAL PROSTHETIC REPLACEMENT (TOTAL HIP ARTHROPLASTY) WITH OR WITHOUT AUTOGRAFT OR ALLOGRAFT Right total hip arthoplasty Wyatt Houston MD [address] 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 Advance Directive(s) 03/13/2021 11:32 AM Advance Directive(s) 12/03/2020 2:46 PM Advance Directive(s) 10/05/2020 8:41 AM Documents on File Type Date Recorded 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 Power of Ironworker Helper Shop Additional Source Comments INFORMATION SOURCE (unrecogn ized section and content) DATE CREATED AUTHOR 07/08/2020 [facility] DATE CREATED AUTHOR AUTHOR'S ORGANIZ ATION 03/26/2021 [facility] DATE CREATED AUTHOR AUTHOR'S ORGANIZ ATION 04/11/2021 [facility] DATE CREATED AUTHOR AUTHOR'S ORGANIZ ATION 08/29/2021 [facility] DATE CREATED AUTHOR AUTHOR'S ORGANIZ ATION 07/26/2022 [facility] DATE CREATED AUTHOR AUTHOR'S ORGANIZ ATION 09/12/2023 [facility] DATE CREATED AUTHOR AUTHOR'S ORGANIZ ATION 02/06/2024 [facility] Source Comments (unrecognize d section and content) In the event this informatio n is protected by the Federal Confidentiality of Alcohol and Drug Abuse Patient Records regulations: The Federal rules restrict any use of the information to criminally investigate or prosecute any alcohol or drug abuse patient.[facility] Reason for Visit (unrecogniz ed section and content) Reason Onset Date Comments Refill Request 07/14/2021 Care Teams (unrecognized sec tion and content) Silviculture Teacher Relationship Specialty Start Date End Date Yaneth Garcia MD [address], [place] [phone] PCP - General Family Practice 10/05/20 Silviculture Teacher Relationship Specialty Start Date End Date Yaneth Garcia MD [address] [place] [phone] PCP - General Family Medicine 08/05/21 Ordered [...] Recovery (only), 2nd Line Option: -ONLY give KS if patient is unable to take orally [...] Recovery (only)
2nd Line Option: -ONLY give KS if patient is unable to take orally [...] BE BASED ON THE PRIMARY CLINICAL RECORDS. [employer] provides no warranty or guarantee of the accuracy or completeness of information in this document.
== END 2024-03-02 08:14 | disposition home or self-care (01) ==
LOC: PM 08:13
PROVIDERS: PCP Family Medicine; Visit Provider Nurse Practitioner
DX: M47.816 Spondylosis without myelopathy or radiculopathy, lumbar region (principal); Z79.891 Long term (current) use of opiate analgesic; M47.814 Spondylosis without myelopathy or radiculopathy, thoracic region; M79.18 Myalgia, other site; M17.11 Unilateral primary osteoarthritis, right knee
CPT/HCPCS: G0463

== ENCOUNTER 2024-05-11 14:46 | Outpatient (OUT) | payer MEDICAID, SELFPAY ==
--- OUTSIDE RECORDS SUMMARY | 2024-05-11 15:04 | XMS_ITS | CCD ---
Author Organization [facility] Care Team Providers Care Music Typographer Name Role Phone Yaneth An MD Primary Care Provider [phone] WYATT TAPIA Admitting Unavailable WYATT TAPIA Attending Unavailable YANETH AN Primary Care Unavailable [...] ., NARENDRANATH Attending Pauly vailable LAKSHMIPATHY ., NARNEILATH Admitting Pauly vailable HOY ., DR WOLFE [...] Unavailable LAKSHMIPATHY ., NARBRI Consulting Pauly vailable LAKSHMIPATHY ., NARENDRAÚLATH Attending Pauly vailable LAKSHMIPATHY ., NARNEILATH Admitting Pauly vailable HOY ., DR WOLFE Primary Care Unavailable HOY ., DR WOLFE Primary Care Unavailable WILHELM ., DR KAITLIN Jang Attending Unavailable WILHELM ., DR KAITLIN Jang Admitting Unavailable PAUL [place] Referring Unavailable YANETH AN Primary Care Unavailable ANILA MARROQUIN Attending Unavailable Yaneth An Primary Care Physician [phone] iVdya Brito Referring Vidya Miles Attending Vidya Miles Admitting Viyda Miles Attending Rufus ledesma Allergies Allergy Classification Reported Allergen(s) Allergy Type Date of Onset Reaction(s) Facility (6 sources) Ciprofloxacin; Translations: [CIPROFLOXACIN] Drug Allergy 1 Unknown, Unknown (qualifier value) [facility] (4 sources) Ciprofloxacin; Translations: [Cipro] Drug Allergy 4 [facility] Repository Medications Current Medications Medication Drug Class(es) Dates Sig (Normalized) Sig (Original) acetaminophen 325 mg / HYDROcodone bitartrate 5 mg oral tablet (4 sources) Opioid Agonist Start: 03-07-2024 take 1 tablet by mouth every six hours as needed for pain acetaminophen-hyd rocodone 325 mg-5 mg oral tablet tab(s), Oral, q6hr as needed for pain, Refill(s) 0 Start Date: 03/07/24 Status: Ordered End: 08-28-2021 take 1 tablet by mouth three times daily HYDROcodone-acetaminophen ([place]) 5-325 mg per tablet Take 1 tablet by mouth 3 (three) times a day if needed (pain). 0 08/28/2021 Discontinued (Stop Taking at Discharge) take 1 tablet by brice th twice daily HYDROcodone-acetaminophen ([place]) 5-325 mg per tablet Take 1 tablet by mouth twice daily. 0 Active Comment on above: Take 1 tablet by brice th twice daily. amino ac/whey prot conc, isol (WHEY PROTEIN ORAL) (1 source) take 1 dose by mouth once daily before mealtime amino ac/whey prot conc, isol (WHEY PROTEIN ORAL) Take 1 Dose by mouth 1 (one) time each day. 0 Active amoxicillin 875 mg / clavulanate 125 mg oral tablet (1 source) Penicillin-class Antibacterial Start: 03-07-20 amoxicillin-clavula nora 875 mg-125 mg Tab 1 tab(s), Oral, BIDPC, Refill(s) 0 Start Date: 03/07/24 Status: Ordered aspirin 81 mg chewable tablet (1 source) Platelet Aggregation Inhibitor, Nonsteroidal Anti-inflammatory Drug Start: 09-13-19 End: 10-11-19 22 take 1 tablet by mouth twice daily aspirin 81 mg chewable tablet Chew 1 tablet (81 mg total) 2 (two) times a day for 28 days. Aspirin 81 mg, 1 tab PO BID for 6 weeks, Disp appropriate quantity. If patient is prescribed Arixtra/Lovenox/Xar elto, do not begin Aspirin until that medication is finished, then only take Aspirin for 4 weeks. 56 each 0 09/12/2021 10/10/2021 Active baclofen 10 mg oral tablet (4 sources) gamma-Aminobutyric Acid-ergic Agonist Start: 03-07-20 baclofen 10 mg Tab = 1 tab(s), Oral, q18hr, Refills(s) 0, Pain Start Date: 03/07/24 Status: Ordered Start: 03-13-2021 End: 08-28-2021 baclofen (LIORESAL) 10 mg ta blet celecoxib 200 mg oral capsule (4 sources) Nonsteroidal Anti-inflammatory Drug Start: 03-07-2024 celecoxib 200 mg Cap = 1 cap(s), Oral, q18hr, Refills(s) 0, Inflammation Start Date: 03/07/24 Status: Ordered Start: 08-29-2021 End: 08-28-2021 take 200 mg by mouth once daily 200 mg, oral, Daily, F irst dose on [facility] 08/29/21 at 0900, Phase II/On Unit [...] doses. 3 each 0 08/28/2021 08/29/2021 Active Cranberry preparation (2 sources) Non-Standardized Food Allergenic Extract, Non-Standardized Plant Allergenic Extract Start: 03-07-2024 cranberry Oral, Daily, Refill(s) 0, Prophylaxis Start Date: 03/07/24 Status: Ordered Start: 03-07-2024 cranberry Refi ll(s) 0 Start Date: 03/07/24 Status: Ordered Floranex (2 sources) Start: 03-07-2024 Floranex Oral, TID, Refills(s) 0, Prophylaxis Start Date: 03/07/24 Status: Ordered Start: 03-07-2024 Floranex Oral, TID, Refills(s) 0 Start Date: 03/07/24 Status: Ordered HYDROmorphone hydrochloride 2 mg oral tablet (2 [...] Magnesium (1 source) take 1 tablet by brice th at bedtime MAGNESIUM ORAL Take 1 tablet by mouth at bedtime. 0 Active Magnesium glycinate (2 sources) Start: 03-07-2024 magnesium glycinate Oral, Daily, Refills(s) 0, Prophylaxis Start Date: 03/07/24 Status: Ordered Start: 03-07-2024 magnesium glyc inate Oral, Refills(s) 0 Start Date: 03/07/24 Status: Ordered melatonin 10 mg extended release oral tablet (3 sources) Start: 10-18-2018 take 10 mg by mouth once daily at bedtime melatonin 10 mg, Oral, Once a day (at bedtime), Refills(s) 0, Sleep Start Date: 10/18/18 Status: Ordered take 1 capsule by mouth once kim ly melatonin 10 mg cap Take 10 mg by mouth once daily. 0 Active Comment on above: Take 10 mg by mouth once daily. Multivitamin preparation (2 sources) Start: 03-07-2024 multivitamin Oral, Daily, Refill(s) 0, Prophylaxis Start Date: 03/07/24 Status: Ordered Start: 03-07-2024 multivitamin R efill(s) 0 Start Date: 03/07/24 Status: Ordered multivitamin tablet (1 source) take 2 tablets [...] pantoprazole 40 mg delayed release oral tablet (5 sources) Proton Pump Inhibitor Start: 07-23-19 End: [...] daily. 90 tablet 0 04/25/2021 07/14/2021 Discontinued Start: 08-05-2019 take 1 tablet by brice once daily pantoprazole 40 mg Oral EC Tab 40 mg = 1 tab(s), Oral, Daily, # 30 tab(s), Refills(s) 5, Pharmacy: [facility]/pharmacy #[id number], 162.56, cm, 01/10/19 9:41:00 EDT, Height/Length Measured, 127.6, kg, 01/10/19 9:41:00 EDT, Weight Measured Start Date: 08/05/19 Status: Ordered Comment on above: Take 1 tablet by brice once daily. phentermine hydrochloride 37.5 mg oral tablet (2 sources) Sympathomimetic Amine Anorectic Start: 03-07-20 phentermine 37.5 mg Tab = 1 tab(s), Oral, q18hr, Refills(s) 0, Other (see comment) Start Date: 03/07/24 Status: Ordered POLYETHYLENE GLYCOL 3350 (1 source) Osmotic Laxative Start: 03-07-20 polyethylene glycol 3350 1 cap(s), Oral, q18hr, Refill(s) 0 Start Date: 03/07/24 Status: Ordered polyvinyl alcohol 0.014 ml/ml ophthalmic solution (1 source) take 1 drop(s) into the eye(s) once daily polyvinyl alcohol (ARTIFICIAL TEARS) 1.4 % ophthalmic solution Administer 1 drop into both eyes 1 (one) time each day if needed for dry eyes. 0 Active rivaroxaban 10 mg oral tablet (2 sources) Factor Xa Inhibitor Start: 08-30-19 End: 08-29-19 take 10 mg by mouth once daily [...] on above: Take 1 capsule by [facility] twice daily. Vitamin D3 (2 sources) Start: 03-07-2024 Vitamin D3 Oral, Daily, Refills(s) 0, Prophylaxis Start Date: 03/07/24 Status: Ordered Start: 03-07-2024 Vitamin D3 Ref ills(s) 0 Start Date: 03/07/24 Status: Ordered Completed/Discontinued Medications Medication Drug Class(es) Dates Sig (Normalized) Sig (Original) acetaminophen 500 mg oral tablet (5 sources) Start: 08-28-2021 End: 08-28-2021 take 1000 [...] limit. 50 tablet 0 08/28/2021 09/04/2021 Active Start: 10-18-2018 take 650 mg by mouth every four hours Tylenol 650 mg, Oral, q4hr, Refills(s) 0, Pain Start Date: 10/18/18 Status: Ordered End: 08-28-2021 take 500-1000 mg by mouth twice daily acetaminophen (TYLENOL) 500 mg tablet Take 500-1,000 mg by mouth 2 (two) times a day if needed (pain). 0 08/28/2021 Discontinued (Stop Taking at Discharge) acetaminophen 325 mg / oxyCODONE hydrochloride 5 mg oral tablet (1 source) Opioid Agonist Start: 08-28-2021 End: 08-28-2021 oxyCODONE-acetaminophen (PERCOCET) 5-325 mg per tablet 2 tablet Biotin (1 source) End: 08-28-2021 take 1 tablet by mouth once daily BIOTIN ORAL Take 1 tablet by mouth 1 (one) time each day. 0 08/28/2021 Discontinued (Stop Taking at Discharge) calcium carbonate-vitamin D3 (OYSTER SHELL CALCIUM-VIT D3) 500 mg(1,250mg) -200 unit pwpk (1 source) calcium carbonat e-vitamin D3 (OYSTER SHELL CALCIUM-VIT D3) 500 mg(1,250mg) -200 unit pwpk Take 200 mg by mouth twice daily. 0 Active Comment on above: Take 200 mg by mouth twice daily. calcium chloride 0.0014 meq/ml / potassium chloride 0.004 meq/ml / sodium chloride 0.103 meq/ml / sodium lactate 0.028 meq/ml injectable solution (2 sources) Start: 08-28-2021 End: 08-28-2021 take 100 mL intravenously every hour 100 [...] Take 400 mg by mouth once daily. 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] Onset: 1 01-07-2021 Chronic Esophageal disorders (2 sources) Gastroesophageal reflux disease; Translations: [Gastro-esophageal reflux disease without esophagitis] Onset: 1 12-12-2020 Chronic Osteoarthritis (9 sources) Osteoarthritis of right hip joint; Translations: [Unilateral primary osteoarthritis, right hip] Onset: 2 Chronic Osteoporosis (1 source) Age-related osteoporosis without current pathological fracture; Translations: [AGE-REL OSTEOPOR W/O CURR PATH FX] Onset: 3 Chronic Other and unspecified benign neoplasm (4 sources) History of polyp of colon; Translations: [Personal history of colon polyps, unspecified] Onset: 4 Episodic Other and unspecified benign neoplasm (2 sources) Polyp of colon 01-10-2019 Episodic Other endocrine disorders (1 source) Adrenal mass; Translations: [Other specified disorders of adrenal gland] Onset: 1 12-27-2020 Chronic Other gastrointestinal disorders (2 sources) Bariatric surgery status; Translations: [S/P laparoscopic sleeve gastrectomy] Onset: 2 Episodic Other liver diseases (1 source) Steatosis of liver; Translations: [Fatty (change of) liver, not elsewhere classified] Onset: 4 Chronic Other nervous system disorders (1 source) Other chronic pain; Translations: [OTHER CHRONIC PAIN] Onset: 3 Chronic Other nervous system disorders (1 source) Chronic pain syndrome; Translations: [CHRONIC PAIN SYNDROME] Onset: 2 Chronic Other non-traumatic joint disorders (4 sources) Pain in right knee; Translations: [PAIN IN RIGHT KNEE] Onset: 3 Episodic Other nutritional; endocrine; and metabolic disorders (1 source) Body mass index 40+ - severely obese; Translations: [Body mass index (BMI) 45.0-49.9, adult] Onset: 1 12-12-2020 Chronic Other nutritional; endocrine; and metabolic disorders (3 sources) Obesity; Translations: [Obesity, unspecified] Onset: 1 03-31-2021 Chronic Pneumonia (except that caused by tuberculosis or sexually transmitted disease) (2 sources) Pneumonia 09-30-2018 Episodic Residual codes; unclassified (2 sources) Sleep apnea 09-30-2018 Chronic Residual codes; unclassified (2 sources) Family history of malignant neoplasm of digestive organ; Translations: [Family history of malignant neoplasm of digestive organs] Onset: 4 Episodic Residual codes; unclassified (2 sources) Family history of cancer of colon 03-03-2024 Episodic Residual codes; unclassified (2 sources) Family history of malignant neoplasm of liver 03-03-2024 Episodic Spondylosis; intervertebral disc disorders; other back problems (5 sources) Spondylosis without myelopathy or radiculopathy, lumbar region; Translations: [Other intervertebral disc degeneration, lumbar region] Onset: 3 Chronic Unclassified (1 source) LOW BACK PAIN, UNSPECIFIED; Translations: [LOW BACK PAIN, UNSPECIFIED] Onset: 3 Unclassified (1 source) CONTACT W/AND (SUSP) EXPOS COVID-19; Translations: [CONTACT W/AND (SUSP) EXPOS COVID-19] Onset: 3 Unclassified (1 source) COUGH, UNSPECIFIED; Translations: [COUGH, UNSPECIFIED] Onset: 3 Past or Other Problems Problem Classification Problem [...] Interpretation Reference Range Facility Patient Letter FTon 2024 Patient Letter [facility] Patient Letter [facility] April 20, 2024 JESSICA DILLARD [address] [place] [address] : 1965 Below is a summary of the results of your recent colonoscopy. Your results have been sent to your primary care provider along with recommendations on when the procedure should be repeated. COLONOSCOPY WITH POLYP REMOVAL OR BIOPSY Type of polyp hyperplastic polyps - benign - not considered precancerous Based on your results we are recommending you repeat the procedure in 5 years You will be placed in our reminder system and will receive a reminder letter prior to your next due date. [facility] [phone] Normal [facility] Reminderson 04-20-2024 Reminders Reminders From: Dipika Mensah I To: [facility] - Reminders/Recalls; Sent: 04/20/2024 15:53:11 EST Show up: 02/11/2029 15:53:00 EDT Subject: Colonoscopy Recall Due Date/Time: 04/11/2029 15:53:00 EST Reminder/Recall [address] Brito 04/11/24 Normal [facility] Surgical Pathology Reporton 04-15-2024 Surgical Pathology Report [address] [place] [address]- Surgical Pathology Report Collected Date/Time: 04/11/2024 12:02 EST Pathologist: Dwaine OSORIO PhD, Bakari King Received Date/Time: 04/11/2024 12:16 EST Alisha OSORIO, Vidya Brito MD, Vidya Lagunas 07 Surgical Pathology Report - 04/15/2024 11:26 EST - Auth (Verified) Final Diagnosis POLYP, ASCENDING COLON, POLYPECTOMY: - COLONIC MUCOSA WITH HYPERPLASTIC CHANGES. (Electronic Signature) Bakari Isidro MD PhD 04/15/2024 11:26 Clinical Information History of colon polyps, family history of colon cancer Pre-Op Diagnosis: History of colon polyps, family history of colon cancer Procedure: Colonoscopy Post-Op Diagnosis: 1. Small internal and external hemorrhoids 2. Mild sigmoid diverticulosis 3. 5 mm sessile polyp in the ascending colon, resected with cold snare completely and retrieved 4. Normal examined terminal ileum Specimen(s) Received Ascending colon polyp Gross Description Received in formalin labeled with patient name, number, and ascending colon polyp is a single fragment of kruse/pink tissue measuring 0.7 x 0.4 x 0.1 cm. The specimen is entirely submitted in one cassette. (DC) DC:[facility] Microscopic Description Microscopic examination performed unless gross only specified. Multiple levels are microscopically examined. Normal [facility] Comment on above: Performed By: #### [id number] #### [facility] [address] [place] [id number] Main OR Intraoperative Recor don 04-12-2024 Main OR Intraoperative Record Main OR Intraoperative Record IntraOp Document Type FT Summary Primary Physician: Alisha OSORIO, Vidya Lagunas Finalized Date/Time: 04/12/24 08:34:42 Pt. Name: JESSICA DILLARD/Sex: 1965 Female Med Rec #: [id number] Physician: Alisha OSORIO, Vidya Lagunas Financial #: [id number] Pt. Type: O Room/Bed: / Admit/Disch: 04/11/24 09:28:19 - 04/11/24 23:59:59 Institution: Case Times FT Entry 1 Patient Times In Room 04/11/24 11:44:00 Out Room 04/11/24 12:09:00 Procedure Times Start 04/11/24 11:49:00 Stop 04/11/24 12:06:00 Anesthesia Times Start 04/11/24 11:44:00 Stop 04/11/24 12:09:00 Time at [place] 04/11/24 11:56:00 Last Modified By: Amarilis Polanco RN 04/11/24 12:09:50 General Comments: EGD end time at 1151./KS,RN Colonoscopy start time at 1153./KS,RN 04/12/24 Chart opened for charge review per Cecy Angulo RN. [place] Case Attendance FT Entry 1 Entry 2 Entry 3 Case Attendee Tyrone GRAY, Abilio Amaro GYNECOLOGY TEACHER, Daniella Brito MD, Vidya Lagunas Role Performed Anesthesiologist Scrub - Primary Surgeon - Primary Ice Cream Server Time In 04/11/24 11:44:00 04/11/24 11:44:00 04/11/24 11:44:00 Time Out 04/11/24 12:09:00 04/11/24 12:09:00 04/11/24 12:09:00 Procedure EGD AND COLONOSCOPY(.) EGD AND COLONOSCOPY(.) EGD AND COLONOSCOPY(.) Comments Dr. Oliva is supervising Last Modified By: Amarilis Polanco RN, RN, Kristin N Sherman RN, Kristin N 04/11/24 12:09:51 04/11/24 12:09:51 04/11/24 12:09:51 Entry 4 Case Attendee Amarilis Polanco RN Role Performed Dewer - Primary Time In 04/11/24 11:44:00 Time Out 04/11/24 12:09:00 Procedure EGD AND COLONOSCOPY(.) Comments Last Modified By: Amarilis Polanco RN 04/11/24 12:09:51 Perioperative Protocols FT Pre-Care Text: Implements protective measures prior to operative or invasive procedure, confirms identity before the operative or invasive procedure, verifies operative procedure, surgical site, and laterality Entry 1 Procedure(s) EGD AND COLONOSCOPY(.) Patient Identity Birthday, ID Band Verified (select at Check, Patient least 2): Participation Consents / H and P Anesthesia Consent, Operative Site N/A Verified H&P, Surgery/Procedure Marking Verified Consent Surgical Site No Laterality Verified n/a Verified Procedure Verified Yes Correct Patient Yes Position Verified Availability Equipment, Medication Prep Dry n/a Verified (If Applicable) PreOp Antibiotic No Time Out Abilio Fernandez, Given Participants Sondra GRACE, Alisha Dye MD, Vidya Lagunas, Amarilis Polanco RN Time Out Complete 04/11/24 11:47:00 Outcomes Met? Yes Last Modified By: Amarilis Polanco RN 04/11/24 11:47:46 Post-Care Text: The patient is free from signs and symptoms of injury caused by extraneous objects Allergy Information FT Pre-Care Text: Verifies allergies Entry 1 Allergies Reviewed? Yes Allergies Reviewed Self/Patient With Outcomes Met? Yes Last Modified By: Amarilis Polanco RN 04/11/24 11:47:53 Post-Care Text: The patient received appropriate medication(s) safely administered during the perioperative period Surgical Procedures FT Entry 1 Procedure Description Procedure EGD AND COLONOSCOPY Modifiers . Surgeon Description EGD. Colonoscopy with ascending colon polypectomy. Primary Procedure Yes Primary Surgeon Alisha OSORIO, Vidya Lagunas Start 04/11/24 11:49:00 Stop 04/11/24 12:06:00 Anesthesia Type General Surgical Service Gastroenterology Wound Class 2 - Clean-Contaminated Last Modified By: Amarilis Polanco RN 04/11/24 12:06:32 General Case Data FT Pre-Care Text: Classifies surgical wound, implements aseptic technique, initiates traffic control Entry 1 Case Information OR ENDO 1 FT Case Level Level 2 Wound Class 2 - Clean-Contaminated Specialty Gastroenterology ASA Class 3 Preop Diagnosis History of colon Postop Same As Preop No polyps, family history of colon cancer Postop Diagnosis EGD- Evidence of sleeve Outcomes Met? Yes surgery. Colonoscopy- Internal hemorrhoids, ascending colon polyp. Last Modified By: Amarilis Polanco RN 04/11/24 12:02:04 Post-Care Text: The patient is free from signs and symptoms of infection Skin Assessment (Pre Procedure) FT Pre-Care Text: Implements protective measures to prevent skin/ tissue injury due to thermal or mechanical sources Evaluates for signs and symptoms of physical injury to skin and tissue Entry 1 Skin Integrity Intact, [place], Warm, & Skin Abnormality No Dry Outcomes Met? Yes Last Modified By: Collin MEDRNAO, Amarilis Gauthier 04/11/24 11:48:52 Post-Care Text: The patient is free from signs and symptoms of injury caused by extraneous objects Patient Positioning FT Pre-Care Text: Identifies physical alterations that require additional precautions for procedure-specific positioning, verifies presence of prosthetics or corrective devices, positions the p (more content not included)... Normal [facility] Discharge Instructionson Discharge Instructions Discharge Instructions JESSICA DILLARD :1965 MRN: Visit Date:04/11/2024 Inpatient Discharge Instructions Your Care Team Admitting Physician - Vidya Brito MD Referring Physician - Vidya Brito MD Reason for Your Visit HX OF COLON POLYPS, FAMILY HX OF COLON CANCER Your Diagnosis Chronic GERD History of colon polyps This Is Your Medications List acetaminophen (Tylenol) acetaminophen-hydrocodone (acetaminophen-hydrocodone 325 mg-5 mg oral tablet) baclofen (baclofen 10 mg Tab) celecoxib (celecoxib 200 mg Cap) cholecalciferol (Vitamin D3) cranberry lactobacillus acidophilus (Floranex) magnesium glycinate melatonin multivitamin pantoprazole (pantoprazole 40 mg Oral EC Tab) phentermine (phentermine 37.5 mg Tab) Procedure History Colonoscopy (04/11/2024), Esophagogastroduodenoscopy (04/11/2024), Bariatric surgeon (03/13/2022), Dilation and curettage, Hip Replacement, Knee Replacement. What to do next Instructions From Your Doctor Event Name Event Result Discharge Activity Resume normal activities in 24 hours Discharge Restrictions No driving for 24 hrs Discharge Diet(s) Regular Call Your Doctor For Persistent or heavy bleeding Discharge Instructions Discharge Instructions New Follow Up Appointments after Discharge Follow Up with Alisha OSORIO, Vidya Lagunas, [facility] When: Comments: Call for any problems. Office will call to schedule follow up appointment Where: Medications What How Much When Instructions Next Dose Unchanged acetaminophen (Tylenol) 650 Milligram By Mouth Every 4 hours Unchanged acetaminophen-hydrocodone (acetaminophen-hydrocodone 325 mg-5 mg oral tablet) By Mouth Every 6 hours as needed for as needed for pain Unchanged baclofen (baclofen 10 mg Tab) 1 Tablets By Mouth Every 18 hours Unchanged celecoxib (celecoxib 200 mg Cap) 1 Capsules By Mouth Every 18 hours Unchanged cholecalciferol (Vitamin D3) By Mouth Every day Unchanged cranberry By Mouth Every day Unchanged lactobacillus acidophilus (Floranex) By Mouth 3 times a day Unchanged magnesium glycinate By Mouth Every day Unchanged melatonin 10 Milligram By Mouth Once a day (at bedtime) Unchanged multivitamin By Mouth Every day Unchanged pantoprazole (pantoprazole 40 mg Oral EC Tab) 1 Tablets By Mouth Every day Unchanged phentermine (phentermine 37.5 mg Tab) 1 Tablets By Mouth Every 18 hours Test Results No qualifying data available. Allergies Cipro (Unknown) Problems Ongoing - Any problem that you are currently receiving treatment for. Arthritis Colon polyps Family history of colon cancer Family history of liver cancer Obesity Personal history of colon polyps, unspecified Sleep apnea Historical - Any problem that you are no longer receiving treatment for. Bronchitis Pneumonia Education Materials Endoscopy Care After Procedure Please read the instructions outlined below and [...] after discharge, please call your doctor. ACTIVITY ??? You may resume your regular activity but move at a slower pace for the next 24 hours. ??? Take frequent rest periods for the next 24 hours. ??? Walking will help expel (get rid of) the air and reduce the bloated feeling in your abdomen. ??? No driving for 24 hours (because of the anesthesia (medicine) used during the test). ??? You may shower. ??? Do not sign any important legal documents or operate any machinery for 24 hours (because of the anesthesia used during the test). NUTRITION ??? Drink plenty of fluids. ??? You may resume your normal diet. ??? Begin with a light meal and progress to your normal diet. ??? Avoid alcoholic beverages for 24 hours or as instructed by your caregiver. MEDICATIONS ??? You may resume your normal medications unless your caregiver tells you otherwise. WHAT YOU CAN EXPECT TODAY ??? You may experience abdominal discomfort such as a feeling of fullness or ???gas??? pains. FOLLOW-UP ??? Your doctor will discuss the results of your test with you. SEEK IMMEDIATE MEDICAL ATTENTION IF ANY OF THE FOLLOWING OCCUR: ??? Excessive nausea (feeling sick to your stomach) and/or vomiting. ??? Severe abdominal pain and distention (swelling). ??? Trouble swallowing. ??? Temperature over 100 F (37.8??? C). ??? Rectal bleeding or vomiting of blood. Document Released: 11/11/2004 Document Re-Released: 09/21/2006 ExitCare??? Patient Information ???2009 nprogress. Hemorrhoids Hemorrho (more content not included)... Normal [facility] Comment on above: Result Comment: Elec tronically Signed By: Luana Montgomery I\.br\Date and Time Signed: 04/11/24 12:22 EST Inpatient Patient Summaryon 04-11-2024 Inpatient Patient Summary Inpatient Patient Summary [place] [id number] [facility] Clinical Discharge Instructions PERSON INFORMATION Name: JESSICA DILLARD PHYSICIANS Admitting Physician: Vidya Brito MD Attending Physician: Vidya Brito MD PCP: Yaneth An MD Discharge Diagnosis: Chronic GERD; History of colon polyps Comment: PATIENT EDUCATION INFORMATION Instructions: Medication Leaflets: Follow up: MEDICATION LIST Medications to Continue with No Changes Other Medications acetaminophen (Tylenol) 650 Milligram By Mouth every 4 hours. acetaminophen-hydrocodone (acetaminophen-hydrocodone 325 mg-5 mg oral tablet) By Mouth every 6 hours as needed as needed for pain. baclofen (baclofen 10 mg Tab) 1 Tablets By Mouth every 18 hours. celecoxib (celecoxib 200 mg Cap) 1 Capsules By Mouth every 18 hours. cholecalciferol (Vitamin D3) By Mouth every day. cranberry By Mouth every day. lactobacillus acidophilus (Floranex) By Mouth 3 times a day. magnesium glycinate By Mouth every day. melatonin 10 Milligram By Mouth once a day (at bedtime). multivitamin By Mouth every day. pantoprazole (pantoprazole 40 mg Oral EC Tab) 1 Tablets By Mouth every day. Refills: 5. phentermine (phentermine 37.5 mg Tab) 1 Tablets By Mouth every 18 hours. Comment: [facility] Main OR PACU II Recordon Main OR PACU II Record Main OR PACU II Record PACU Phase II Document Type FT Summary Primary Physician: Vidya Brito MD Finalized Date/Time: 04/11/24 12:45:56 Pt. Name: JESSICA DILLARD Joanie/Sex: 1965 Female Med Rec #: [id number] Physician: Vidya Brito MD Financial #: [id number] Pt. Type: O Room/Bed: / Admit/Disch: 04/11/24 09:28:19 - Institution: Case Times PACU II FT Pre-Care Text: Identifies barriers to communication and implements measures to provide psychological support and determines knowledge level Develops individualized plan of care, and ensures continuity of care Maintains patient's dignity and privacy, and maintains patient confidentiality Identifies and reports philosophical, cultural, and spiritual beliefs and values Identifies individual values and wishes concerning care administers prescribed antibiotic therapy and immunizing agents as ordered, Evaluates postoperative tissue perfusion Implements thermoregulation measures, and monitors body temperature Evaluates postoperative respiratory status Evaluates postoperative cardiac status Evaluates postoperative neurological status Assesses pain control, collaborated in initiating patient-controlled analgesia and implements alternative methods of pain control Verifies allergies, administers prescribed medications and solutions, evaluates response to medications Entry 1 In PACU II 04/11/24 12:12:00 Discharge from PACU 04/11/24 12:42:00 II Outcomes Met? Yes Last Modified By: Luana Montgomery I 04/11/24 12:45:51 Post-Care Text: The patient demonstrates knowledge of [...] affecting his or her perioperative plan of care. The patient is free from signs and [...] from baseline levels established preoperatively The patient's neurological status is consistent with or improved from baseline levels established preoperatively The patient demonstrates and/or reports adequate pain control throughout the perioperative period The patient received appropriate medication(s), safely administered during the perioperative period Finalized By: Luana Montgomery I Document Signatures Signed By: Luana Montgomery I 04/11/24 12:45 Normal [facility] Main OR Preoperative Recordo n 04-11-2024 Main OR Preoperative Record Main OR Preoperative Record Holding Area Document Type FT Summary Primary Physician: Vidya Brito MD Finalized Date/Time: 04/11/24 10:41:44 Pt. Name: JESSICA DILLARD/Sex: 1965 Female Med Rec #: [id number] Physician: Vidya Brito MD Financial #: [id number] Pt. Type: O Room/Bed: / Admit/Disch: 04/11/24 09:28:19 - Institution: Case Times Holding FT Pre-Care Text: Verifies consent for planned procedure, identifies individual values and wishes concerning care, includes family members in perioperative teaching Secures patient's records' belongings, and valuables, maintains patient's dignity and privacy, and maintains patient confidentiality Entry 1 In Holding 04/11/24 10:30:00 Outcomes Met? Yes Last Modified By: Amarilis Polanco RN 04/11/24 10:40:50 Post-Care Text: The patient participates in decisions affecting his or her perioperative plan of care The patient's right to privacy is maintained Surgery Checklist FT Entry 1 Patient Birthday, ID Band Procedure History and Physical, Identification: Check, Patient Verification: Surgical Consent, With Participation Patient NPO after Midnight: No Date/Time: 04/11/24 06:30:00 Personal Items: Glasses, Jewelry Personal Items braclets, clothes Comment: Limitations: no Complaints of Pain: No Pain Comment: no Operative Site n/a Marking: Availability Equipment Verified: Does Patient Smoke No Patient states Yes Comment - Adult Tete-sister postop adult Supervision supervision available Case Cancelled in No Holding Area see comments below for reason Last Modified By: Amarilis Polanco RN 04/11/24 10:41:40 Finalized By: Amarilis Polanco RN Document Signatures Signed By: Amarilis Polanco RN 04/11/24 10:41 Normal [facility] Outpatient Surgery Discharge Instructionon 04-11-2024 Outpatient Surgery Discharge Instruction Outpatient Surgery Discharge Instruction [place] [id number] Patient Discharge Instructions PERSON INFORMATION Name: JESSICA DILLARD Date of : 1965 Current Date: 04/11/2024 11:39:20 PHYSICIANS Admitting Physician: Alisha OSORIO, Vidya Lagunas Discharge Diagnosis: Chronic GERD; History of colon polyps JESSICA DILLARD has been given the following list of follow-up instructions, prescriptions, and patient education materials: PATIENT FOLLOW-UP INFORMATION Diet: Regular Discharge Activity: Resume normal activities in 24 hours Discharge Restrictions: No driving for 24 hrs Call Your Doctor For: Persistent or heavy bleeding IF UNABLE TO CONTACT YOUR PHYSICIAN AND YOU FEEL IT IS AN EMERGENCY, GO TO THE NEAREST EMERGENCY ROOM OR CALL 911 Zoya, JESSICA DILLARD, have received the attached patient education materials/instructions and have verbalized understanding: May we do a follow up call? Yes No I was present when discharge instructions were given __ Patient Signature Date Clinican/Nurse Signature Date Follow up: Pharmacy Information: You may receive a survey from [facility] asking you to rate your care experience. Your feedback is important and will help us understand what we do well and how we can improve the quality of care we provide to you, your loved ones and our community. It???s an honor to serve you. Thank you for choosing [facility] HERE ARE THE MEDICATION CHANGES THAT OCCURRED DURING YOUR HOSPITAL STAY Medications to Continue with No Changes Other Medications acetaminophen (Tylenol) 650 Milligram By Mouth every 4 hours. acetaminophen-hydrocodone (acetaminophen-hydrocodone 325 mg-5 mg oral tablet) By Mouth every 6 hours as needed as needed for pain. baclofen (baclofen 10 mg Tab) 1 Tablets By Mouth every 18 hours. celecoxib (celecoxib 200 mg Cap) 1 Capsules By Mouth every 18 hours. cholecalciferol (Vitamin D3) By Mouth every day. cranberry By Mouth every day. lactobacillus acidophilus (Floranex) By Mouth 3 times a day. magnesium glycinate By Mouth every day. melatonin 10 Milligram By Mouth once a day (at bedtime). multivitamin By Mouth every day. pantoprazole (pantoprazole 40 mg Oral EC Tab) 1 Tablets By Mouth every day. Refills: 5. phentermine (phentermine 37.5 mg Tab) 1 Tablets By Mouth every 18 hours. PATIENT EDUCATION INFORMATION Instructions: Medication Leaflets: Normal [facility] Ambulatory Visit Summaryon 05-07-2023 Ambulatory Visit Summary Ambulatory Visit Summary JESSICA DILLARD :1965 Visit Date:03/07/2024 Ambulatory Visit Instructions Your Diagnosis Family history of colon cancer, Family history of liver cancer Personal history of colon polyps, unspecified Fatty liver, Fatty liver Bariatric surgery status Your Care Team Attending Physician - Vidya Brito MD Primary Care Physician - Yaneth An MD This Is Your Medications List Contact prescribing physician if questions or concerns acetaminophen (Tylenol) acetaminophen-hydrocodone (acetaminophen-hydrocodone 325 mg-5 mg oral tablet) amoxicillin-clavulanate (amoxicillin-clavulanate 875 mg-125 mg Tab) baclofen (baclofen 10 mg Tab) celecoxib (celecoxib 200 mg Cap) cholecalciferol (Vitamin D3) cranberry lactobacillus acidophilus (Floranex) magnesium glycinate melatonin multivitamin pantoprazole (pantoprazole 40 mg Oral EC Tab) phentermine (phentermine 37.5 mg Tab) polyethylene glycol 3350 Procedures Performed Bariatric surgeon (03/13/2022), Dilation and curettage, Hip Replacement, Knee Replacement. Discharge Vitals Heart Rate (Peripheral) 86 Respiratory Rate 16 Blood Pressure 114/62 Height 162 cm Height 64 in Weight 95 kg Weight 209.439 lb BMI 36.2 What to do next You Need to Complete the Following US Liver, 03/07/24, Routine, Order for future visit, Transport Mode: Ambulatory, Reason: Other (please specify), No, Fatty liver, pp_set_radiology_subspecialt y, Way - Arnaldo Medications What How Much When Instructions Unchanged acetaminophen (Tylenol) 650 Milligram By Mouth Every 4 hours Contact prescribing physician if questions or concerns Unchanged acetaminophen-hydrocodone (acetaminophen-hydrocodone 325 mg-5 mg oral tablet) By Mouth Every 6 hours Contact prescribing physician if questions or concerns Unchanged amoxicillin-clavulanate (amoxicillin-clavulanate 875 mg-125 mg Tab) 1 Tablets By Mouth Twice a day (after meals) Contact prescribing physician if questions or concerns Unchanged baclofen (baclofen 10 mg Tab) 1 Tablets By Mouth Every 18 hours Contact prescribing physician if questions or concerns Unchanged celecoxib (celecoxib 200 mg Cap) 1 Capsules By Mouth Every 18 hours Contact prescribing physician if questions or concerns Unchanged cholecalciferol (Vitamin D3) Contact prescribing physician if questions or concerns Unchanged cranberry Contact prescribing physician if questions or concerns Unchanged lactobacillus acidophilus (Floranex) By Mouth 3 times a day Contact prescribing physician if questions or concerns Unchanged magnesium glycinate By Mouth Contact prescribing physician if questions or concerns Unchanged melatonin 10 Milligram By Mouth Once a day (at bedtime) Contact prescribing physician if questions or concerns Unchanged multivitamin Contact prescribing physician if questions or concerns Unchanged pantoprazole (pantoprazole 40 mg Oral EC Tab) 1 Tablets By Mouth Every day Contact prescribing physician if questions or concerns Unchanged phentermine (phentermine 37.5 mg Tab) 1 Tablets By Mouth Every 18 hours Contact prescribing physician if questions or concerns Unchanged polyethylene glycol 3350 1 Capsules By Mouth Every 18 hours Contact prescribing physician if questions or concerns Allergies Cipro (Unknown) Problems Ongoing - Any problem that you are currently receiving treatment for. Arthritis Colon polyps Family history of colon cancer Family history of liver cancer Obesity Personal history of colon polyps, unspecified Sleep apnea Historical - Any problem that you are no longer receiving treatment for. Bronchitis Pneumonia Patient Survey You may receive a survey via text or e-mail asking about your office visit. Please share your experience with us by completing your survey. We appreciate your feedback and thank you for choosing us for your care. [facility] Gastroenterology Office/Clin ic Noteon 03-07-2024 Gastroenterology Office/Clinic Note Gastroenterology Office/Clinic Note Chief Complaint 5 year colon recall HPI Staff Patient is a(n) 58 year old female who presents today for a 5 year colonoscopy recall. Fhx colon cancer - grandparent. Fhx liver cancer - mother. Hx hyperplastic polyps. Denies n/v/c/d, abd pain, bloody or mucus stools. Blood thinners? no. GLP-1 agonists? no. EGD/Colonoscopy 10/18/18 w/Dr. Cueva: Findings Esophagus: LA grade B esophagitis,hiatal narrowing/Z line/GE junction at 39 cm Stomach: a 3 mm clean base antral ulcer with hypertrophic mucosa around it, targeted biopsies obtained using cold biopsy forceps a 2 mm clean base ulcer noted on the incisura Duodenum: mild duodenitis in the examined portion of the duodenum superficial clean base ulcers, 2-5 mm in size, 3 in the bulb and 2 in the 2nd portion of the duodenum noted Impression and Plan LA grade B esophagitis gastric ulcers, one biopsied as above mild duodenitis superficial duodenal ulcers Recommendations: 4. Retun to activities after 24 hours 5. check H. pylori serology 7. Protonix 40 mg daily 8. Consider repeat EGD in 8 weeks to ensure healing of the ulcers Impression and Plan Colon polyps, removed/ablated small size external hemorrhoids with skin tags moderate size internal hemorrhoids normal appearing terminal ileum Recommendations: Repeat colonoscopy:: Pending pathology results. Pathology: Diagnosis Comment (Verified) A. No H. pylori microorganisms identified with immunostain. Final Diagnosis (Verified) A: ANTRAL ULCER, BIOPSY: ??? ANTRAL MUCOSA WITH MILD CHRONIC INFLAMMATION AND REGENERATIVE HYPERPLASTIC CHANGES. ??? NO INTESTINAL METAPLASIA IDENTIFIED. B: POLYP, SIGMOID COLON, POLYPECTOMY: ??? HYPERPLASTIC POLYP. C: POLYP, RECTOSIGMOID COLON, POLYPECTOMY: ??? HYPERPLASTIC POLYP. D: POLYP, RECTUM, POLYPECTOMY: ??? HYPERPLASTIC POLYP. Review of Systems PHQ Score Initial Depression Screen Score: 1 SCORE Physical Exam Vitals & Measurements HR: 86(Peripheral) RR: 16 BP: 114/62 HT: 64 in HT: 162 cm WT: 95 kg WT: 209.439 lb BMI: 36.2 Assessment/Plan 1. Family history of colon cancer, (Z80.0: Family history of malignant neoplasm of digestive organs)Family history of liver cancer Second-degree Had multiple hyperplastic polyps Repeat colonoscopy Ordered: Colonoscopy (Hospital Procedure) E&M of New Patient Moderate 45-59 Min 23928 EGD Endoscopy (Hospital Procedure) 2. Personal history of colon polyps, unspecified (Z86.0100: Personal history of colon polyps, unspecified) Ordered: Colonoscopy (Hospital Procedure) E&M of New Patient Moderate 45-59 Min 82890 EGD Endoscopy (Hospital Procedure) 4. Fatty liver, (K76.0: Fatty (change of) liver, not elsewhere classified)Fatty liver She was told she had fatty liver in the past, she had sleeve surgery few years ago at [facility], she lost 100 pounds, she was noted to have esophagitis that improved with treatment, therefore she was able to tolerate sleeve surgery Mother with liver cancer, therefore I like to obtain ultrasound and FibroScan Alcohol intake 1-2 drinks every 2 weeks Liver enzymes and CBC were normal few weeks ago at [facility] Ordered: Fibroscan (Hospital Procedure) US Liver 5. Bariatric surgery status (Z98.84: Bariatric surgery status) Had sleeve surgery few years ago in [facility], lost 100 pounds, she was having esophagitis before that, improved with therapy, therefore was able to tolerate bariatric surgery Dr. Cueva saw LA grade B esophagitis 2018, no repeat EGD was done We discussed switching pantoprazole to before dinner instead of at bedtime, it is controlling her symptoms for now, we will proceed with a EGD and based on that we will decide on therapy changes also discussed lifestyle modifications Follow-up No qualifying data available Problem List/Past Medical History Ongoing Arthritis Colon polyps Family history of colon cancer Family history of liver cancer Obesity Personal history of colon polyps, unspecified Sleep apnea Historical Bronchitis Pneumonia Procedure/Surgical History Bariatric surgeon (03/13/2022), Dilation and curettage, Hip Replacement, Knee Replacement. Medications acetaminophen-hydrocodone 325 mg-5 mg oral tablet, Oral, q6hr amoxicillin-clavulanate 875 mg-125 mg Tab, 1 tab(s), Oral, BIDPC baclofen 10 mg Tab, 1 tab(s), Oral, q18hr celecoxib 200 mg Cap, 1 cap(s), Oral, q18hr cranberry Floranex, Oral, TID magnesium glycinate, Oral melatonin, 10 mg, Oral, Once a day (at bedtime) multivitamin pantoprazole 40 mg Oral EC Tab, 40 mg= 1 tab(s), Oral, Daily, 5 refills phentermine 37.5 mg Tab, 1 tab(s), Oral, q18hr polyethylene glycol 3350, 1 cap(s), Oral, q18hr Tylenol, 650 mg, Oral, q4hr Vitamin D3 Allergies Cipro (Unknown) Social History Alcohol Current. Liquor. 1-2 times per month., 03/07/2024 Exercise - Does not exercise, 09/30/2018 Other (more content not included)... Normal [facility] Comment on above: Result Comment: Elec tronically Signed By: Alisha OSORIO, Vidya Lagunas\.br\Date and Time Signed: 03/07/24 09:32 EST Patient Letter FTon 2023 Patient Letter [facility] Patient Letter [facility] October 27, 2023 JESSICA DILLARD [address] [place] [id number] : 1965 Dear Jessica, This is a reminder that you are due for an appointment with [facility]. Please contact our office at [phone] to schedule your 5 year colon recall Thank you, [facility] [phone] Normal [facility] Covid-19 PCR (CVDTBH)on 03-13 SARS-CoV-2 (COVID-19) RNA HELLEN+probe Ql (Unsp spec) Not detected Normal NOT DETECTED [facility] Comment on above: Result Comment: [...] for this test is supported by the [place] [employer] of Health and Human Service's declaration that [...] be used). Performed By: #### C VDTB ####[facility] [address] [place], [place] [address]Dr. Bakari Isidro INFLUENZA A AND B AGon 03-28 INFLUANEGH SEE BELOW Normal [facility] Comment on above: Result Comment: Nega tive for Flu A protein angiten. Infection due to Flu A cannot be ruled out. Flu A angiten in the sample may be below the detection limit of the test. Performed By: #### I NFLUAB ####[facility] [address] [place], [place] [address]Dr. Bakari Isidro INFLUBNEGH SEE BELOW Normal [facility] Comment on above: Result Comment: Nega tive for Flu B protein antigen. Infection due to Flu B cannot be ruled out. Flu B antigen in the sample may be below the detection limit of the test. Performed By: #### I NFLUAB ####[facility] [address] [place], [place] [address]Dr. Bakari Isidro INFLUENZA A AG Negative Normal NEGATIVE SEE COMMENT [facility] Comment on above: Performed By: #### I NFLUAB ####[facility] [address] [place], [place] [address]Ql. Bakari Isidro INFLUENZA B AG Negative Normal NEGATIVE SEE COMMENT [facility] Comment on above: Performed By: #### I NFLUAB ####[facility] [address] [place], [place] [address]Su. Bakari Isidro INTERNAL CONTROLS Within Normal Limits Normal Wi thin Normal Limits [facility] Comment on above: Performed By: #### I NFLUAB ####[facility] [address] [place], [place] [address]Vm. Bakari Isidro Covid-19 PCR (CVDTBH)on SARS-CoV-2 (COVID-19) RNA HELLEN+probe Ql (Unsp spec) Not detected Normal NOT DETECTED [facility] Comment on above: Result Comment: This test is not yet approved or cleared by the [place] FDA. When there are no FDA-approved or cleared tests available, and other criteria are met, FDA can make tests available under an emergency access mechanism called an Emergency Use Authorization (EUA). The EUA for this test is supported by the Hair Mix[employer] of Health and Human Service's (HHS's) declaration [...] with SARS-CoV-2. Performed By: #### C VDTBH ####[facility] [address] [place], [place] [address]Rb. Bakari Isidro Covid-19 PCR (CVDTBH)on 01-12 SARS-CoV-2 (COVID-19) RNA HELLEN+probe Ql (Unsp spec) Not detected Normal NOT DETECTED [facility] Comment on above: Result Comment: This test is not yet approved or cleared by the [place] FDA. When there are no FDA-approved or cleared tests available, and other criteria are met, FDA can make tests available under an emergency access mechanism called an Emergency Use Authorization (EUA). The EUA for this test is supported by the [place] of Health and Human Service's (HHS's) declaration [...] with SARS-CoV-2. Performed By: #### C VDTBH ####[facility] [address] [place], [place] [address]OgDr. Bakari Isidro VIT D 25-OH LABCORPon 2021 Vitamin D, 25-Hydroxy 60.1 ng/mL Normal 30.0-100.0 [facility] Comment on above: Result Comment: Traci min D deficiency has been defined by the [place] of Medicine and an Endocrine Society practice guideline as a level of serum 25-OH vitamin D less than 20 ng/mL (1,2). The Endocrine Society went on to further define vitamin D insufficiency as a level between 21 and 29 ng/mL (2). 1. IOM ([place] of Medicine). 2010. Dietary reference intakes for calcium and D. [place]: The National Academies Press. 2. Qi MF, Celeste NC, Debora CHOWDHURY, et al. Evaluation, treatment, and prevention of vitamin D deficiency: an Endocrine Society clinical practice guideline. JCEM. 2010; 96(7):1911-30. Performed By: #### V ITADLC #### [facility] [address] [place], [place] [address] Dr. Bakari Isidro CBC AUTO DIFFon 11-19-2021 BASO # 0.0 103/ul Normal 0.0-0.1 [facility] Comment on above: Performed By: #### C BC ####[facility] [address] [place] [id number]. Bakari Isidro Basophils/100 WBC (Bld) 0.5 % Normal 0.2-2.[address] [facility] Comment on above: Performed By: #### C BC ####[facility] [address] [place], [place] [address]Dr. Bakari Isidro EO # 0.1 103/ul Normal 0.0-0.[address] [facility] Comment on above: Performed By: #### C BC ####[facility] [address] [place], [place] [address]Dr. Bakari Isidro Eosinophils/100 WBC (Bld) 1.4 % Normal 0.9-7.0 [facility] Comment on above: Performed By: #### C BC ####[facility] [address] [place], [place] [address]Dr. Bakari Isidro Erythrocyte distribution width (RBC) [Ratio] 12.8 % Normal 11.0-15.0 [facility] Comment on above: Performed By: #### C BC ####[facility] [address] [place], [place] [address]Dr. Bakari Isidro Hematocrit (Bld) [Volume fraction] 43.2 % Normal 36.0-48.0 [facility] Comment on above: Performed By: #### C BC ####[facility] [address] [place], [place] [address]Dr. Bakari Isidro Hemoglobin (Bld) [Mass/Vol] 13.4 g/dL Normal 12.0-16.[address] [facility] Comment on above: Performed By: #### C BC ####[facility] [address] [place], [place] [address]Dr. Bakari Isidro IG # 0.05 10e3/ul Critically high 0.00-0.03 [facility] Comment on above: Performed By: #### C BC ####[facility] [address] [place], [place] [address]Dr. Bakari Isidro IG % 0.6 % Critically high 0.0-0.5 The [facility] Comment on above: Performed By: #### C BC ####[facility] [address] [place] [id number]. Bakari Dwaine LYMPH # 1.6 103/ul Normal 1.2-3.8 [facility] Comment on above: Performed By: #### C BC ####[facility] [address] [place] [id number]. Bakari Isidro Lymphocytes/100 WBC (Bld) 19.4 % Critically low 20.5-60.0 [facility] Comment on above: Performed By: #### C BC ####[facility] [address] [place] [id number]. Bakari Isidro MANUAL DIFF REQ NO Normal [facility] Comment on above: Performed By: #### C BC ####[facility] [address] [place] [id number]. Bakari Isidro MCH (RBC) [Entitic mass] 27.5 pg Normal 26.7-34.0 [facility] Comment on above: Performed By: #### C BC ####[facility] [address] [place] [id number]. Ravenmaxx Isidro MCHC (RBC) [Mass/Vol] 31.0 g/dL Normal 29.9-35.2 [facility] Comment on above: Performed By: #### C BC ####[facility] [address] [place] [id number]. Bakari Isidro MCV (RBC) [Entitic vol] 88.5 fL Normal 81.0-99.[address] [facility] Comment on above: Performed By: #### C BC ####[facility] Sewjlyialv[address] [place] [id number]. Bakari Isidro MONO # 0.6 103/ul Normal 0.3-0.[address] [facility] Comment on above: Performed By: #### C BC ####[facility] [address] [place] [id number]. Bakari Isidro Monocytes/100 WBC (Bld) 7.2 % Normal 1.7-12.0 [facility] Comment on above: Performed By: #### C BC ####[facility] [address]ks[address] [place] [id number]. Ravenmaxx Isidro NEUT # 6.0 103/ul Normal 1.4-6.5 [facility] Comment on above: Performed By: #### C BC ####[facility] [address] [place] [id number]. Bakari Isidro Neutrophils/100 WBC (Bld) 70.9 % Normal 43.0-75.[address] [facility] Comment on above: Performed By: #### C BC ####[facility] [address] [place] [id number]. Bakari Isidro Platelet mean volume (Bld) [Entitic vol] 9.5 fL Normal 9.5-13.5 [facility] Comment on above: Performed By: #### C BC ####[facility] [address] [place] [id number]. Bakari Isidro PLT 236 103/ul Normal 150-[address] [facility] Comment on above: Performed By: #### C BC ####[facility] M[address]alk[address] [place] [id number]. Bakari Isidro RBC 4.88 106/ul Normal 4.20-5.[address] [facility] Comment on above: Performed By: #### C BC ####[facility] [address] [place] [id number]. Bakari Isidro WBC 8.5 103/ul Normal 4.0-11.[address] [facility] Comment on above: Performed By: #### C BC ####[facility] R[address] [place] [id number] A Carbajalmaxx Dwaine FREE THYROXINE INDEX T7on FTI 2.27 Normal 1.30-4.[address] [facility] Comment on above: Performed By: #### T SH, LIPID, CMP, T7 #### [facility] Laboratory [address] [place], [place] [address] Dr. Bakari Isidro T3U 32.0 % Normal 30.0-39.[address] [facility] Comment on above: Performed By: #### T SH, LIPID, CMP, T7 #### [facility] [address] [place] [address] [address] Bakari Isidro T4 [Mass/Vol] 7.10 ug/dL Normal 4.80-13.90 [facility] Comment on above: Performed By: #### T SH, LIPID, CMP, T7 #### [facility] [address] [place] [address] [address] Bakari Isidro GLYCOHEMOGLOBIN A1Con 2021 ADA RECOMMENDATION SEE BELOW Normal [facility] Comment on above: Result Comment: ADA RECOMMENDED LIMIT 4.0 - 6.0 ADA THERAPEUTIC TARGET < 7.0 ACTION SUGGESTED > 7.0 Performed By: #### A 1C #### [facility] [address] [place] [address] [address] Bakari Isidro Glucose [Mass/Vol] 105 mg/dL Normal The [facility] Comment on above: Performed By: #### A 1C #### [facility] [address] [place] [address] [address] Bakari Isidro HbA1c (Bld) [Mass fraction] 5.3 % Normal 4.5-6.2 [facility] Comment on above: Performed By: #### A 1C #### [facility] [address] [place] [address] [address] Bakari Isidro IRONon 11-19-2021 Iron [Mass/Vol] 49.0 ug/dL Critically low 50.0-170.0 [facility] Comment on above: Performed By: #### I JOHAN B12FOL ####[facility] R[address]ttkwkrgs[address] [place] [phone]. Bakari Isidro LIPID PROFILEon 11-19-2021 CHOL-HDL RATIO NORM SEE BELOW Normal [facility] Comment on above: Result Comment: 3.3 - 4.4 LOW RISK 4.4 - 7.1 AVERAGE RISK 7.1 - 11.0 MODERATE RISK >11.0 HIGH RISK Performed By: #### T SH, LIPID, CMP, T7 #### [facility] [address] [place] [address] [address] Bakari Isidro Cholesterol [Mass/Vol] 219 mg/dL Critically high <=200 [facility] Comment on above: Performed By: #### T SH, LIPID, CMP, T7 #### [facility] [address] [place] [address] [address] Bakari Isidro Cholesterol in HDL [Mass/Vol] 43 mg/dL Normal 40-60 [facility] Comment on above: Performed By: #### T SH, LIPID, CMP, T7 #### [facility] [address] [place] [address] [address] Bakari Isidro Cholesterol in LDL [Mass/Vol] 147.0 mg/dL Normal [facility] Comment on above: Performed By: #### T SH, LIPID, CMP, T7 #### [facility] [address] [place] [address] [address] Bakari Isidro Cholesterol.total/ Cholesterol in HDL [Mass ratio] 5.1 {ratio} Normal [facility] Comment on above: Performed By: #### T SH, LIPID, CMP, T7 #### [facility] [address] [place] [address] [address] Bakari Isidro HDL NORMAL > or = 60 mg/dl - LO W CARDIOVASCULAR RISK <40 mg/dl - HIGH CARDIOVASCULAR RISK Normal [facility] Comment on above: Performed By: #### T SH, LIPID, CMP, T7 #### [facility] [address] [place] [address] [address] Bakari Isidro LDL CALC NORMAL SEE BELOW Normal [facility] Comment on above: Result Comment: <100 mg/dl OPTIMAL 100 - 129 mg/dl NEAR OR ABOVE OPTIMAL 130 - 159 mg/dl BORDERLINE HIGH 160 - 189 mg/dl HIGH >190 mg/dl VERY HIGH Performed By: #### T SH, LIPID, CMP, T7 #### [facility] [address] [place] [address] [address] Bakari Isidro Triglyceride [Mass/Vol] 145 mg/dL Normal <=[address] [facility] Comment on above: Performed By: #### T SH, LIPID, CMP, T7 #### [facility] [address] [place] [address] [address] Bakari Isidro VLDL CALC 29.0 mg/dL Normal [facility] Comment on above: Performed By: #### T SH, LIPID, CMP, T7 #### [facility] [address] [place] [address] [address] Bakari Isidro PROF 14(COMP METB)on 022 Albumin [Mass/Vol] 3.6 g/dL Normal 3.4-5.0 [facility] Comment on above: Performed By: #### T SH, LIPID, CMP, T7 #### [facility] [address] [place] [address] [address] Bakari Isidro Albumin/Globulin [Mass ratio] 1.1 {ratio} Normal [facility] Comment on above: Performed By: #### T SH, LIPID, CMP, T7 #### [facility] [address] [place] [address] Dr. Bakari Isidro ALP [Catalytic activity/Vol] 129 U/L Critically high 46-116 [facility] Comment on above: Performed By: #### T SH, LIPID, CMP, T7 #### [facility] [address] [place] [address] Dr. Bakari Isidro ALT [Catalytic activity/Vol] 24 U/L Normal 14-59 [facility] Comment on above: Performed By: #### T SH, LIPID, CMP, T7 #### [facility] [address] [place] [address] Dr. Bakari Isidro Anion gap [Moles/Vol] 15.7 mmol/L Normal [facility] Comment on above: Performed By: #### T SH, LIPID, CMP, T7 #### [facility] [address] [place] [address] Dr. Bakari Isidro AST [Catalytic activity/Vol] 13 U/L Critically low 15-37 [facility] Comment on above: Performed By: #### T SH, LIPID, CMP, T7 #### [facility] [address] [place] [address] Dr. Bakari Isidro Bilirubin [Mass/Vol] 0.3 mg/dL Normal 0.2-1.0 [facility] Comment on above: Performed By: #### T SH, LIPID, CMP, T7 #### [facility] [address] [place] [address] [address] Bakari Isidro Calcium [Mass/Vol] 9.0 mg/dL Normal 8.5-10.1 [facility] Comment on above: Performed By: #### T SH, LIPID, CMP, T7 #### [facility] [address] [place] [address] [address] Bakari Isidro Chloride [Moles/Vol] 105 mmol/L Normal 98-[address] [facility] Comment on above: Performed By: #### T SH, LIPID, CMP, T7 #### [facility] [address] [place] [address] [address] Bakari Isidro CO2 [Moles/Vol] 24.0 mmol/L Normal 21.0-32.0 The [facility] Comment on above: Performed By: #### T SH, LIPID, CMP, T7 #### [facility] [address] [place] [address] Dr. Bakari Isidro Creatinine [Mass/Vol] 0.55 mg/dL Normal 0.55-1.02 [facility] Comment on above: Performed By: #### T SH, LIPID, CMP, T7 #### [facility] [address] [place] [address] [address] Bakari Isidro EGFR-AF GRENADIAN >60 Normal >=60 [facility] Comment on above: Performed By: #### T SH, LIPID, CMP, T7 #### [facility] [address] [place] [address] Dr. Bakari Isidro EGFR-NON AF GRENADIAN >60 Normal >=[address] [facility] Comment on above: Performed By: #### T SH, LIPID, CMP, T7 #### [facility] [address] [place] [address] [address] Bakari Isidro Globulin (S) [Mass/Vol] 3.2 g/dL Normal [facility] Comment on above: Performed By: #### T SH, LIPID, CMP, T7 #### [facility] [address] [place] [address] Dr. Bakari Isidro Glucose [Mass/Vol] 99 mg/dL Normal 74-106 [facility] Comment on above: Performed By: #### T SH, LIPID, CMP, T7 #### [facility] [address] [place] [address] Dr. Bakari Isidro Potassium [Moles/Vol] 4.7 mmol/L Normal 3.5-5.1 [facility] Comment on above: Performed By: #### T SH, LIPID, CMP, T7 #### [facility] [address] [place] [address] Dr. Bakari Isidro Protein [Mass/Vol] 6.8 g/dL Normal 6.4-8.2 [facility] Comment on above: Performed By: #### T SH, LIPID, CMP, T7 #### [facility] [address] [place] [address] Dr. Bakari Isidro Sodium [Moles/Vol] 140 mmol/L Normal 136-145 [facility] Comment on above: Performed By: #### T SH, LIPID, CMP, T7 #### [facility] [address] [place] [address] Dr. Bakari Isidro Urea nitrogen [Mass/Vol] 17.0 mg/dL Normal 7.0-18.0 [facility] Comment on above: Performed By: #### T SH, LIPID, CMP, T7 #### [facility] [address] [place] [address] Dr. Bakari Isidro Urea nitrogen/Creatinin e [Mass ratio] 30.9 mg/mg Normal [facility] Comment on above: Performed By: #### T SH, LIPID, CMP, T7 #### [facility] [address] [place] [address] Dr. Bakari Isidro TSHon 11-19-2021 TSH 0.483 uIU/mL Normal 0.358-3.740 [facility] Comment on above: Performed By: #### T SH, LIPID, CMP, T7 #### [facility] [address] [place] [address] Dr. Bakari Isidro VIT B12 AND FOLATEon 022 Cobalamin (Vitamin B12) [Mass/Vol] 1350.0 pg/mL Critically high 193.0-986.0 [facility] Comment on above: Performed By: #### I JOHAN, B12FOL ####[facility] [address] [place], [place] [address]Rk. Bakari Isidro FOLATE 23.50 ng/mL Normal 8.60-58.90 [facility] Comment on above: Performed By: #### I JOHAN, B12FOL ####[facility] [address] [place], [place] [address]Ru. Bakari Isidro Glucose Auto test strip (Bld ) [Mass/Vol]on 08-28-2021 Glucose [Mass/Vol] 85 mg/dL Normal 70-99 [facility] Comment on above: Performed By: #### 2 340-8 #### [facility] [address] [place] [address] Glucose [Mass/Vol] 85 mg/dL 70 - 99 mg/dL [facility] Interpretation and review of laboratory results Normal [facility] Glucose [Mass/Vol] 85 mg/dL Normal 70-99 [facility] Comment on above: Performed By: #### 2 340-8 #### [facility] [address] [place] [address] Glucose [Mass/Vol] 85 mg/dL 70 - 99 mg/dL [facility] Interpretation and review of laboratory results Normal [facility] XR PELVIS 1-2 VIEWSon 2021 [...] Self Edit Transcribed Date: 08/28/2021 15:40 Normal [facility] XR Pelvis 1-2 Viewson 2021 Surgical changes [...] By: Self Edit Transcribed Date: 08/28/2021 15:40 [facility] Study observation (narrative) [facility] Pelvis 1-2 ViewsOrdered B y: Sina Nguyen on 08-28-2021 [employer] [employer] Phone: Covid-19 PCR (CVDTB)on 08-11 SARS-CoV-2 (COVID-19) RNA HELLEN+probe Ql (Unsp spec) Not detected Normal NOT DETECTED [facility] Comment on above: Result Comment: This test is not yet approved or cleared by the [place] FDA. When there are no FDA-approved or cleared tests available, and other criteria are met, FDA can make tests available under an emergency access mechanism called an Emergency Use Authorization (EUA). The EUA for this test is supported by the [employer] of Health and Human Service's (HHS's) declaration [...] SARS-CoV-2. Performed By: #### C VDTB #### [facility] [address] [place] [address] [address] Bakari Isidro Basic metabolic 2000 panelon 08-02-2021 Anion gap [Moles/Vol] 10 mmol/L Normal 6-18 [facility] Comment on above: Performed By: #### 2 4321-2 #### [facility] [address] [place] [address] Calcium [Mass/Vol] 9.6 mg/dL Normal 8.9-10.3 [facility] Comment on above: Performed By: #### 2 4321-2 #### [facility] [address] [place] [address] Chloride [Moles/Vol] 103 mmol/L Normal 98-107 [facility] Comment on above: Performed By: #### 2 4321-2 #### [facility] [address] [place] [address] CO2 [Moles/Vol] 27 mmol/L Normal 22-32 [facility] Comment on above: Performed By: #### 2 4321-2 #### [facility] [address] [place] [address] Creatinine [Mass/Vol] 0.60 mg/dL Normal 0.60-1.30 [facility] Comment on above: Performed By: #### 2 4321-2 #### [facility] [address] [place] [address] GFR/1.73 sq M.predicted among non-blacks MDRD (S/P/Bld) [Vol rate/Area] 101 mL/min/{1.73_m2} Normal [facility] Comment on above: Performed By: #### 2 4321-2 #### [facility] [address] [place] [address] Glucose [Mass/Vol] 86 mg/dL Normal 70-99 [facility] Comment on above: Performed By: #### 2 4321-2 #### [facility] [address] [place] [address] Potassium [Moles/Vol] 4.5 mmol/L Normal 3.6-5.1 [facility] Comment on above: Performed By: #### 2 4321-2 #### [facility] [address] [place] [address] Sodium [Moles/Vol] 140 mmol/L Normal 136-145 [facility] Comment on above: Performed By: #### 2 4321-2 #### [facility] [address] [place] [address] Urea nitrogen [Mass/Vol] 28 mg/dL High 8-20 [facility] Comment on above: Performed By: #### 2 4321-2 #### [facility] [address] [place] [address] Urea nitrogen/Creatinin e [Mass ratio] 46.7 mg/mg High 12.0-20.0 [facility] Comment on above: Performed By: #### 2 4321-2 #### [facility] [address] [place] [address] Hemogram and platelets WO di fferential panel (Bld)on 08-02-2021 Basophils (Bld) [#/Vol] 0.10 10*3/uL Normal 0.00-0.20 [facility] Comment on above: Performed By: #### 2 4317-0 #### [facility] [address] [place] [address] Basophils/100 WBC (Bld) 0.6 % Normal 0.0-2.0 [facility] Comment on above: Performed By: #### 2 4317-0 #### [facility] [address] [place] [address] Eosinophils (Bld) [#/Vol] 0.10 10*3/uL Normal 0.00-0.70 [facility] Comment on above: Performed By: #### 2 4317-0 #### [facility] [address] [place] [address] Eosinophils/100 WBC (Bld) 1.6 % Normal 0.0-7.0 [facility] Comment on above: Performed By: #### 2 4317-0 #### [facility] [address] [place] [address] Erythrocyte distribution width (RBC) [Ratio] 13.8 % Normal 11.0-14.8 [facility] Comment on above: Performed By: #### 2 4317-0 #### [facility] [address] [place] [address] Hematocrit (Bld) [Volume fraction] 40.1 % Normal 35.0-45.0 [facility] Comment on above: Performed By: #### 2 4317-0 #### [facility] [address] [place] [address] Hemoglobin (Bld) [Mass/Vol] 13.1 g/dL Normal 12.0-16.0 [facility] Comment on above: Performed By: #### 2 4317-0 #### [facility] [address] [place] [address] Lymphocytes (Bld) [#/Vol] 1.80 10*3/uL Normal 1.00-4.80 [facility] Comment on above: Performed By: #### 2 4317-0 #### [facility] [address] [place] [address] Lymphocytes/100 WBC (Bld) 22.7 % Normal 22.0-44.0 [facility] Comment on above: Performed By: #### 2 4317-0 #### [facility] [address] [place] [address] MCH 28.1 pcg Normal 27.0-34.0 [facility] Comment on above: Performed By: #### 2 4317-0 #### [facility] [address] [place] [address] MCHC (RBC) [Mass/Vol] 32.7 g/dL Normal 32.0-36.0 [facility] Comment on above: Performed By: #### 2 4317-0 #### [facility] [address] [place] [address] MCV (RBC) [Entitic vol] 86.0 fL Normal 80.0-97.0 [facility] Comment on above: Performed By: #### 2 4317-0 #### [facility] [address] [place] [address] Monocytes (Bld) [#/Vol] 0.50 10*3/uL Normal 0.00-0.90 [facility] Comment on above: Performed By: #### 2 4317-0 #### [facility] [address] [place] [address] Monocytes/100 WBC (Bld) 6.3 % Normal 0.0-12.0 [facility] Comment on above: Performed By: #### 2 4317-0 #### [facility] [address] [place] [address] Neutrophils Absolute 5.30 K/mcL Normal 1.80-7.70 [facility] Comment on above: Performed By: #### 2 4317-0 #### [facility] [address] [place] [address] Neutrophils/100 WBC (Bld) 68.8 % Normal 40.0-70.0 [facility] Comment on above: Performed By: #### 2 4317-0 #### [facility] [address] [place] [address] Platelet mean volume (Bld) [Entitic vol] 8.6 fL Normal 6.2-12.1 [facility] Comment on above: Performed By: #### 2 4317-0 #### [facility] [address] [place] [address] Platelets (Bld) [#/Vol] 290 10*3/uL Normal 142-424 [facility] Comment on above: Performed By: #### 2 4317-0 #### [facility] [address] [place] [address] RBC (Bld) [#/Vol] 4.66 10*6/uL Normal 3.80-5.10 [facility] Comment on above: Performed By: #### 2 4317-0 #### [facility] [address] [place] [address] WBC (Bld) [#/Vol] 7.8 10*3/uL Normal 4.6-10.2 [facility] Comment on above: Performed By: #### 2 4317-0 #### [facility] [address] [place] [address] Nuclear IgG IA Ql (S)on 07-13 Bacteria identified Cx Nom (U) 1 ORGANISM 202 Abnormal >272578 CFU/mL Escherichia coli The organism value for [...] Islt <=20 ug/ml Susceptible Invalid Interpretation Code [facility] Comment on above: Performed By: #### 2 9950-3 #### [facility] LAB [address] [place] [address] Bacteria, Urine Moderate Abnormal None [facility] Comment on above: Performed By: #### 2 9950-3 #### [facility] [address] [place] [address] Calcium Oxalate Crystals, Urine Occasional Abnormal None [facility] Comment on above: Performed By: #### 2 9950-3 #### [facility] [place] [facility] [address] [place] [address] RBC, Urine None Seen Normal 0-5 [facility] Comment on above: Performed By: #### 2 9950-3 #### [facility] [place] ([facility] [address] [place] [address] WBC, Urine 0-5 Normal 0-5 [facility] Comment on above: Performed By: #### 2 9950-3 #### [facility] [place] [facility] [address] [place] [address] OPERATIVE NOon 04-10-2021 OPERATIVE NO HNO ID: [id number] Author: Paul Nj MD Service: General Surgery Author Type: Physician Type: Operative Report Filed: 04/10/2021 11:55 AM Note Text: [facility] [place] - Operative Report JESSICA DILLARD : 1965 AGE: 55. SEX: F PATIENT TYPE: I HOSP [facility]: [facility] LOCATION: [facility] ATTENDING PHYSICIAN: Paul Nj MD CSN NUMBER: [id number] DATE OF SURGERY/PROCEDURE: 03/29/2021 INCISION/PROCEDURE START TIME: 10:33 AM INCISION CLOSE/PROCEDURE END TIME: 11:30 AM PREOPERATIVE DIAGNOSIS: 1. Morbid obesity with a BMI of 45. 2. Hyperlipidemia. 3. Hypertension. 4. Obstructive sleep apnea. POSTOPERATIVE DIAGNOSIS: 1. Morbid obesity with a BMI of 45. 2. Hyperlipidemia. 3. Hypertension. 4. Obstructive sleep apnea. SURGEON: Paul Nj MD PROFESSOR OF PSYCHIATRY: Pb Upton MD SURGERY/PROCEDURE: 1. Laparoscopic sleeve [...] any posterior hiatal hernia was noted. A 36-Syriac bougie was passed in the stomach. Multiple [...] in throughout the operation. Paul Nj MD TA:[id number] /[id number] [facility] HNO ID: [id number] Author: Titus Colon MD Service: General Surgery [...] Center 04/11/2021 4:10 PM Paul Nj MD [id number] [facility] 05/01/2021 9:00 AM Barbara Martines, PhD GSPSMN [facility] 05/09/2021 4:00 PM Paul Nj MD [id number] [facility] 05/10/2021 2:[address] GENSCOT [facility] The patient's risk for 30-day readmission [...] of this (more content not included)... Normal [facility] NURSING PROGon 03-31-2021 NURSING PROG HNO ID: [id number] Author: Deepika Porras RN Service: ? Author Type: Registered Nurse Type: Nursing Progress Note Filed: 03/31/2021 1:36 AM Note Text: Nursing Progress Note Patient Name: Jessica Dillard Patient Location: [place] [address] [address] 1999 (late entry) Patient alert and oriented [...] This note was completed [facility]: [facility] HNO ID: [id number] Author: Titus Colon MD Service: General Surgery [...] Center 04/11/2021 4:10 PM Paul Nj MD [id number] [facility] 05/01/2021 9:00 AM Barbara Martines, PhD GSPSMN [facility] 05/09/2021 4:00 PM Paul Nj MD [id number] [facility] 05/10/2021 2:30 PM ROSALIND Mo [facility] The patient's risk for 30-day readmission is determined using the following contributing factors: Pt variables contributing to increased readmission risk: 25 Most Recent BUN Result 13 Active Medication Orders 1 Insurance - Medicaid 1 Active (more content not included)... Normal [facility] CONSULTon 03-30-2021 CONSULT HNO ID: [id number] Author: Clifton Forde MD Service: General Surgery Author Type: Resident Type: Consults Filed: 03/30/2021 8:27 AM Note Text: PROGRESS NOTES - SURGICAL SERVICES Jessica Nishant [id number] ASSESSMENT/PLAN: 55 year old year old female [...] Yamilex Forde MD PGY-2 General Surgery Surgery [place] Team [phone] weekdays. Or [phone] weeknights (6pm - 6am) and weekends. SUBJECTIVE [...] 03/29/21699 - 03/30/2165803/30/21699 - 03/31/21 0659 Shift 3567-8394 0023-7064 3463-9417 24 Hour Total 9181-7718 0701-9775 0670-0853 24 Hour Total INTAKE PO 200 150 350 PO 200 150 350 IV 1150 1150 Volume (mL) (ceFAZolin iv piggyback 2 g in D5W (iso-osmotic) 100 mL (ANCEF)) 100 100 Volume (mL) (magnesium sulfate 2 g in NaCl 0.9% 100 mL) 100 100 Volume (mL) (lactated ringers iv infusion) 950 950 Shift Total 9503 668 6256 OUTPUT Urine 200 400 600 Void (ml) [...] imaging results. CBC, Coags, BMP, Mg, Phos [facility] NURSING PROGon 03-30-2021 NURSING PROG HNO ID: [id number] Author: Theresa Rosas RN Service: ? Author [...] Paged team [phone]: (late entry) administered compazine. [facility] NURSING PROG HNO ID: [id number] Author: Cookie Capellan RN Service: ? Author Type: Registered Nurse Type: Nursing Progress Note Filed: 03/30/2021 3:41 AM Note Text: Nursing Progress Note Patient Name: Jessica Dillard Patient Location: [place] [address] Daily Note: 0339: Pt's HR tachy at rest, this RN witnessed it as high as 112. Temp 99.3 F. Text page sent to [facility] to inform. This note was completed by: Cookie Capellan [facility] ANES POSTPROC EVALon 021 ANES POSTPROC EVAL HNO ID: [id number] Author: Gary Acosta MD Service: Anesthesiology Author Type: Anesthesiologist Type: Anesthesia Postprocedure Evaluation Filed: 03/29/2021 12:16 PM Note Text: POST ANESTHESIA EVALUATION NOTE : 1965 Procedure Summary Date: 03/29/21 Room / Location: [place] [address] / OR Anesthesia Start: 1010 Anesthesia Stop: [...] March 29, 2021 TIME: 12:15 PM CSN: [id number] [facility] ANES PRE-OPon 03-29-2021 ANES PRE-OP HNO ID: [id number] Author: Tiburcio Eisenberg MD Service: Anesthesiology Author [...] none. Vitals Value Taken Time BP 118/45 03/29/21909 Pulse 92 03/29/21909 Resp 18 03/29/21909 Temp 36.3 ?C (97.3 [...] March 29, 2021 TIME: 9:34 AM CSN: [id number] [facility] BRIEF OP NOTon 03-29-2021 BRIEF OP NOT HNO ID: [id number] Author: Pb Upton MD Service: General Surgery Author Type: Resident Type: Brief Op Note Filed: 03/29/2021 12:27 PM Note Text: BRIEF OPERATIVE NOTE [facility] LOG ID: [id number] SURGERY/PROCEDURE DATE: 03/29/2021 INCISION/PROCEDURE START TIME: 10:33 AM INCISION CLOSE/PROCEDURE END TIME: 11:30 AM SURGEON(S) AND PROFESSOR OF PSYCHIATRY(S): Surgeon(s) and Role: * Paul Nj MD [...] 29, 2021 TIME: 12:26 PM PAGER/CONTACT #: [facility] NURSING PROGon 03-29-2021 NURSING PROG HNO ID: [id number] Author: Deena Atkinson RN Service: ? Author [...] (RECOMMENDATION): None Electronically Signed By: Deena Atkinson [facility] SURGICAL PATHOLOGYon 021 SURGICAL PATHOLOGY Specimen originated from [facility] Specimen #: [id number] Submitting Physician: PAUL NJ MD FINAL DIAGNOSIS [...] The serosal surface is kruse-pink and smooth. Russian History Professor sections are submitted in four cassettes. / 03/29/2021 Gross examination performed at [facility], [address] [place] [address] Date of Report: 04/02/2021 Date of Procedure: 03/29/2021 Date of Receipt: 03/29/2021 Submitted by: PAUL NJ MD Location: [facility] Diagnostic interpretation performed at [facility], [address] [place] [address]. [place] Number: [id number] [facility] THERAPY NTon 03-29-2021 THERAPY NT HNO ID: [id number] Author: Tete Knapp RRT Service: Respiratory Therapy Author Type: Respiratory Therapist Type: Therapy (PT/OT/Speech/Resp) Filed: 03/29/2021 4:24 PM Note Text: Patient does not wear CPAP at home. No unit in the room. Tete Knapp RRT Normal [facility] HISTORY PHYSICALon HISTORY PHYSICAL HNO ID: [id number] Author: Deanna Bourne PA-C Service: ? Author Type: Physician Ice Cream Server Type: HANDP Filed: 03/26/2021 8:17 AM Note [...] fevers. Neuro: No history of TIA's, stroke, STEAM HAND tumor, impaired sensorium, hemiplegia, paraplegia or quadraplegia. No neurological symptoms or problems. Respiratory: No history of current cough or dyspnea, or pneumonia in the past 6 weeks. No history of respiratory/pulmonary symptoms or problems. Cardiovascular: No history of HTN requiring medication, no history of angina, CHF, MT, cardiac surgery or stents. Denies rest pain, gangrene or revascularization/amputation for PVD. No history of cardiovascular symptoms or problems. 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 Normal [facility] Type and SCR (30D)on 021 ABO/RH(D) Positive Normal [facility] Comment on above: Performed By: #### T SCR30 ####[place] [phone] Basic Metabolic Panlon 12-28 Anion gap [Moles/Vol] 11 mmol/L Normal 9-18 [facility] Comment on above: Performed By: #### C BC, BMP #### [address] Calcium [Mass/Vol] 8.7 mg/dL Normal 8.5-10.5 [facility] Comment on above: Performed By: #### C BC, BMP #### [address] Chloride [Moles/Vol] 107 mmol/L Normal 98-110 [facility] Comment on above: Performed By: #### C BC, BMP #### [place] [phone] CO2 [Moles/Vol] 23 mmol/L Normal 23-32 [facility] Comment on above: Performed By: #### C BC, BMP #### [place] [phone] Creatinine [Mass/Vol] 0.52 mg/dL Low 0.70-1.40 [facility] Comment on above: Performed By: #### C BC, BMP #### [place] [phone] eGFR- Amer. >60 Normal >60 [facility] Comment on above: Performed By: #### C BC, BMP #### [place] [phone] eGFR-All Other Races >60 Normal >60 [facility] Comment on above: Result Comment: eGFR [...] Performed By: #### C ADRIAN, BMP #### [place] [phone] Glucose [Mass/Vol] 106 mg/dL High 65-100 [facility] Comment on above: Performed By: #### C ADRIAN, BMP #### [place] [phone] Potassium [Moles/Vol] 4.0 mmol/L Normal 3.5-5.0 [facility] Comment on above: Performed By: #### Akua CAMPBELL, BMP #### [place] [phone] Sodium [Moles/Vol] 141 mmol/L Normal 132-148 [facility] Comment on above: Performed By: #### C ADRIAN, BMP #### [place] [phone] Urea nitrogen [Mass/Vol] 11 mg/dL Normal 8-25 [facility] Comment on above: Performed By: #### Akua CAMPBELL, BMP #### [place] [phone] CBCon 12-28-2020 Absolute nRBC <0.01 Normal <0.01 [facility] Comment on above: Performed By: #### Akua CAMPBELL, BMP #### [place] [phone] Erythrocyte distribution width (RBC) [Ratio] 12.5 % Normal 11.5-15.0 [facility] Comment on above: Performed By: #### C ADRIAN, BMP #### [place] [phone] Hematocrit (Bld) [Volume fraction] 37.7 % Normal 36.0-46.0 [facility] Comment on above: Performed By: #### Akua CAMPBELL, BMP #### [place] [address] Hemoglobin (Bld) [Mass/Vol] 12.1 g/dL Normal 11.5-15.5 [facility] Comment on above: Performed By: #### C ADRIAN, BMP #### [place] [address] MCH 28.1 pG Normal 26.0-34.0 [facility] Comment on above: Performed By: #### C BC, BMP #### [place] [address] MCHC (RBC) [Mass/Vol] 32.1 g/dL Normal 30.5-36.0 [facility] Comment on above: Performed By: #### C ADRIAN, BMP #### [place] [phone] MCV (RBC) [Entitic vol] 87.7 fL Normal 80.0-100.0 [facility] Comment on above: Performed By: #### C ADRIAN, BMP #### [place] [address] Platelet mean volume (Bld) [Entitic vol] 9.6 fL Normal 9.0-12.7 [facility] Comment on above: Performed By: #### C ADRIAN, BMP #### [place] [address] Platelets (Bld) [#/Vol] 226 10*3/uL Normal 150-400 [facility] Comment on above: Performed By: #### C ADRIAN, BMP #### [place] [id number] RBC (Bld) [#/Vol] 4.30 10*6/uL Normal 3.90-5.20 [facility] Comment on above: Performed By: #### C BC, BMP #### [place] [phone] WBC (Bld) [#/Vol] 8.65 10*3/uL Normal 3.70-11.00 [facility] Comment on above: Performed By: #### C , BMP #### [place] [id number] [place] [address] [facility] 12-28-2020 [facility] HNO ID: [id number] Author: Loren Boyd MD Service: General Surgery [...] was uncomplicated. Patient was then returned to [facility] where her post-op recovery was essentially [...] DATE: December 28, 2020 TIME: 7:46 AM [facility] NURSING PROGon 12-28-2020 NURSING PROG HNO ID: [id number] Author: Maicol Monae RN Service: ? Author Type: Registered Nurse Type: Nursing Progress Note Filed: 12/28/2020 4:08 AM Note Text: Nursing Progress Note Patient Name: Jessica Dillard [id number] Daily Note: 0200 Patients IV removed for possible infiltration, ice applied and elevated, new IV placed. Paged house to make them aware. This note was completed by: Maicol Monae [facility] NURSING PROG HNO ID: [id number] Author: Maicol Monae RN Service: ? Author [...] This note was completed by: Maicol Monae [facility] ANES POSTPROC EVALon 021 ANES POSTPROC EVAL HNO ID: [id number] Author: Donnell Chicas MD Service: Anesthesiology Author [...] December 27, 2020 TIME: 4:54 PM CSN: [id number] [facility] ANES PRE-OPon 12-27-2020 ANES PRE-OP HNO ID: [id number] Author: Abilio Hansen DO Service: Critical Care [...] (96.8 ?F) 12/27/20 0854 SpO2 99 % 12/27/20853 Facility-Administered Medications as [...] December 27, 2020 TIME: 9:06 AM CSN: [id number] [facility] BRIEF OP NOTon 12-27-2020 BRIEF OP NOT HNO ID: [id number] Author: Kadi Flanagan MD Service: General Surgery Author Type: Resident Type: Brief Op Note Filed: 12/27/2020 3:28 PM Note Text: Attestation signed by Jesus Lobato MD at 12/27/2020 3:37 PM [id number] Jesus Lobato MD BRIEF OPERATIVE / PROCEDURE NOTE LOG ID: [id number] Surgery/Procedure Date: 12/27/2020 Incision/Procedure Start Time: 1:31 PM Incision Close/Procedure End Time: 3:13 PM Surgeon(s)/Proceduralist(s) and Ice Cream Server(s): Surgeon(s) and Role: * Jesus Lobato MD [...] December 27, 2020 TIME: 3:27 PM Normal [facility] Confirm Blood Typeon 021 ABO/RH(D) Positive [facility] Comment on above: Performed By: #### C ONABO ####[facility] [place], [place] [phone] HISTORY PHYSICALon HISTORY PHYSICAL HNO ID: [id number] Author: Kadi Flanagan MD Service: General Surgery [...] December 27, 2020 TIME: 9:45 AM Normal [facility] NURSING PROGon 12-27-2020 NURSING PROG HNO ID: [id number] Author: Barbara Calix, MARCELA Service: Nursing Author Type: Registered Nurse Type: Nursing Progress Note Filed: 12/27/2020 8:02 PM Note Text: Nursing Progress Note Patient Name: Jessica Dillard Patient Location: -[id number] Daily Note: 1745 Received patient from PACU, alert, Abdominal Stab sites intact. Up to bathroom with contact guard, gait steady. This note was completed by: Hannah Fifi [facility] NURSING PROG HNO ID: [id number] Author: Valencia Abdul RN Service: Nursing Author [...] (RECOMMENDATION): None Electronically Signed By: Valencia Abdul [facility] OPERATIVE NOon 12-27-2020 OPERATIVE NO HNO ID: [id number] Author: Jesus Lobato MD Service: General Surgery Author Type: Physician Type: Operative Report Filed: 12/28/2020 10:33 AM Note Text: [facility] - Operative Report JESSICA DILLARD : 1965 AGE: 55. SEX: F PATIENT TYPE: I HOSP SVC: GENS LOCATION: [facility] ATTENDING PHYSICIAN: Jesus Lobato M.D. CSN NUMBER: [id number] DATE OF SURGERY/PROCEDURE: 12/27/2020 INCISION/PROCEDURE START TIME: 1:31 PM INCISION CLOSE/PROCEDURE END TIME: 3:13 PM PREOPERATIVE DIAGNOSIS: Indeterminate right adrenal mass, nonfunctional. POSTOPERATIVE DIAGNOSIS: Indeterminate right adrenal mass, nonfunctional. SURGEON: Jesus Lobato M.D. PROFESSOR OF PSYCHIATRY: Adrien Flanagan MD. SURGERY/PROCEDURE: Laparoscopic right adrenalectomy. [...] this procedure with assistance. Jesus Lobato M.D. [id number] /[id number] Normal [facility] SURGICAL PATHOLOGYon 021 SURGICAL PATHOLOGY Specimen originated from [facility] Specimen #: [id number] Submitting Physician: Jesus Lobato M.D. FINAL DIAGNOSIS [...] cortical tissue and virtually no medullary component. Russian History Professor sections are submitted as follows: A1-A6 adrenal mass, A7 uninvolved adrenal parenchyma. BF/ch 12/28/2020 Gross examination performed at [facility], [address] [place] [address] Date of Report: 01/01/2021 Date of Procedure: 12/27/2020 Date of Receipt: 12/27/2020 Submitted by: Jesus Lobato M.D. Location: [facility] Diagnostic interpretation performed at [place] [address]. CLIA Number: [id number] Normal [facility] Type and SCR (30D)on 021 ABO/RH(D) Positive Normal [facility] Comment on above: Performed By: #### T SCR30 ####[address] [phone] HISTORY PHYSICALon HISTORY PHYSICAL HNO ID: [id number] Author: Shade Hilton MD Service: General Surgery [...] 19, 2020 TIME: 9:50 AM PAGER/CONTACT #: [phone] [facility] NURSING PROGon 10-19-2020 NURSING PROG HNO ID: [id number] Author: Maris Caruso RN Service: ? Author [...] (RECOMMENDATION): None Electronically Signed By: Maris Caruso [facility] SURGICAL PATHOLOGYon 021 SURGICAL PATHOLOGY Specimen originated from [facility] Specimen #: [id number] Submitting Physician: Jesus Lobato M.D. FINAL DIAGNOSIS 1. Stomach, body, biopsy (A) - Gastric antral-type mucosa with reactive gastropathy. - Separate fragment of gastric body-type mucosa with no diagnostic abnormality. 2. Esophagus, Z-line, biopsy (B) - Squamous mucosa with focal reactive epithelial changes suggestive of gastroesophageal reflux. - Gastric cardia-type mucosa with mild chronic inflammation, negative for intestinal metaplasia or dysplasia. JEL/kljoseph 10/22/2020 COMMENT 1. No Helicobacter pylori organisms [...] in one cassette. Gross examination performed at [facility], [address] [place] [address] 10/19/2020 5:46:23 PM Date of Report: 10/22/2020 Date of Procedure: 10/19/2020 Date of Receipt: 10/19/2020 Submitted by: Jesus Lobato M.D. Location: [facility] Diagnostic interpretation performed at [facility], [address] [place] [address]. CLIA Number: [id number] Normal [facility] COVID-19 Antigenon COVID-19 Antigen Results called at [...] its performance Maryellen Disclaimer characteristic determined by [employer] and Maryellen Disclaimer validated at [facility]. This Maryellen Disclaimer test has [...] is terminated or revoked sooner. PERFORMED BY: [place] [address] PATHOLOGIST ATTORNEY LAW CLERK DAVID THOMAS M.D. Normal [facility] Comment on above: Performed By: #### S OFIAPOS, COVID-19 MARYELLEN #### [address] Maryellen Ag Positiveon 06-26-19 21 Maryellen Ag Positive Positive Normal Negative [facility] Comment on above: Result Comment: This is a duplicate Maryellen SARS Antigen (ZARINA) result to be used for statistical tracking purpose only. PERFORMED BY: [place] [address] PATHOLOGIST ATTORNEY LAW CLERK DAVID THOMAS M.D. Performed By: #### S OFIAPOS, COVID-19 MARYELLEN #### [address] Vital Signs Date Time Vital Sign Value Performing Clinician Facility 04-11-2024 12:37-0500 Diastolic blood pressure 76 mm[Hg] Dasilva Sarmini [facility] 04-11-2024 12:37-0500 Heart rate 76 /min Dasilva Sarmini [facility] 04-11-2024 12:37-0500 Mean blood pressure 87 mm[Hg] Dasilva Sarmini [facility] 04-11-2024 12:37-0500 Respiratory rate 17 /min Dasilva Sarmini [facility] 04-11-2024 12:37-0500 SaO2% (BldA) [Mass fraction] 98 % Dasilva Sarmini [facility] 04-11-2024 12:37-0500 Systolic blood pressure 110 mm[Hg] Dasilva Sarmini [facility] 04-11-2024 12:25-0500 Diastolic blood pressure 82 mm[Hg] Dasilva Sarmini [facility] 04-11-2024 12:25-0500 Heart rate 75 /min Dasilva Sarmini [facility] 04-11-2024 12:25-0500 Mean blood pressure 89 mm[Hg] Dasilva Sarmini [facility] 04-11-2024 12:25-0500 Respiratory rate 18 /min Dasilva Sarmini [facility] 04-11-2024 12:25-0500 SaO2% (BldA) [Mass fraction] 96 % Dasilva Sarmini [facility] 04-11-2024 12:25-0500 Systolic blood pressure 102 mm[Hg] Dasilva Sarmini [facility] 04-11-2024 12:12-0500 Body temperature 98.06 [degF] Dasilva Sarmini [facility] 04-11-2024 12:12-0500 Diastolic blood pressure 58 mm[Hg] Dasilva Sarmini [facility] 04-11-2024 12:12-0500 Heart rate 88 /min Dasilva Sarmini [facility] 04-11-2024 12:12-0500 Mean blood pressure 68 mm[Hg] Dasilva Sarmini [facility] 04-11-2024 12:12-0500 Respiratory rate 15 /min Dasilva Sarmini [facility] 04-11-2024 12:12-0500 SaO2% (BldA) [Mass fraction] 98 % Dasilva Sarmini [facility] 04-11-2024 12:12-0500 Systolic blood pressure 89 mm[Hg] Dasilva Sarmini [facility] 04-11-2024 12:05-0500 Respiratory rate 16 /min Dasliva Sarmini [facility] 04-11-2024 11:55-0500 Respiratory rate 16 /min Dasilva Sarmini [facility] 04-11-2024 10:42-0500 Blood Pressure Location Dasilva Sarmini [facility] 04-11-2024 10:42-0500 Body temperature 96.8 [degF] Dasilva Sarmini [facility] 03-07-2024 08:55-0500 Blood Pressure Location Dasilva Sarmini [facility] 03-07-2024 08:55-0500 Diastolic blood pressure 62 mm[Hg] Dasilva Sarmini [facility] 03-07-2024 08:55-0500 Heart rate 86 /min Dasilva Sarmini [facility] 03-07-2024 08:55-0500 Respiratory rate 16 /min Dasilva Sarmini [facility] 03-07-2024 08:55-0500 Systolic blood pressure 114 mm[Hg] Dasilva Sarmini [facility] 08-28-2021 16:04-0400 SaO2% (BldA) [Mass fraction] 96 % Wyatt Tapia MD Work Phone: [facility] 08-28-2021 15:56-0400 Body temperature 97.81 [degF] Wyatt Tapia MD Work Phone: [facility] 08-28-2021 15:56-0400 Diastolic blood pressure 85 mm[Hg] Wyatt Tapia MD Work Phone: [facility] 08-28-2021 15:56-0400 Heart rate 99 /min Wyatt Tapia MD Work Phone: [facility] 08-28-2021 15:56-0400 Respiratory rate 14 /min Wyatt Tapia MD Work Phone: [facility] 08-28-2021 15:56-0400 Systolic blood pressure 137 mm[Hg] Wyatt Tapia MD Work Phone: [facility] 08-28-2021 11:00-0400 Body mass index (BMI) [Ratio] 38.52 kg/m2 Wyatt Tapia MD Work Phone: [facility] 08-28-2021 11:00-0400 Body weight 101.8 kg Wyatt Tapia MD Work Phone: [facility] 08-26-2021 10:00-0400 Body height 162.6 cm Wyatt Tapia MD Work Phone: [facility] [employer] Encounters Encounter Date Encounter Type Care Provider Facility Start: 04-11-2024 End: 04-11-2024 ambulatory Dasilva Talal Sarmini Facility:[facility] Start: 04-11-2024 End: 04-11-2024 Patient encounter procedure Dasilva Talal Sarmini [facility] Start: 03-07-2024 End: 03-07-2024 ambulatory Dasilva Talal Sarmini Facility:[facility] Start: 03-07-2024 End: 03-07-2024 Patient encounter procedure Vidya Brito [facility] Start: 10-16-2022 ambulatory NARENDRANATH LAKSHMIPATHY . Facility:[facility] Start: 07-29-2022 ambulatory NARENDRANATH LAKSHMIPATHY . Facility:[facility] Start: 07-24-2022 End: 07-25-2022 ambulatory NARENDRANATH LAKSHMIPATHY . Facility:[facility] Start: 07-03-2022 End: 07-04-2022 ambulatory NARENDRANATH LAKSHMIPATHY . Facility:[facility] Start: 05-01-2022 End: 05-02-[address] KAITLIN WILHELM . Facility:[facility] Start: 04-22-2022 Encounter for preprocedural laboratory examination DR KAITLIN WILHELM . [facility] Start: 04-01-2022 End: 04-01-[address] YANETH AN . Facility:[facility] Start: 03-28-2022 End: 03-29-[address] KAITLIN WILHLEM . Facility:[facility] Start: 03-28-2022 End: 03-29-2022 Encounter [...] abnormal findings DR YANETH AN . [facility] Start: 11-19-2021 End: 11-20-[address] YANETH AN . Facility:[facility] Start: 11-19-2021 End: 11-20-2021 Encounter for general adult medical examination without abnormal findings DR YANETH AN . Facility:[facility] Start: 10-10-2021 End: 10-11-[address] KAITLIN WILHELM . Facility:[facility] Start: 08-30-2021 End: 09-28-[address] DOCTOR THOMAS Facility:[facility] Start: 08-28-2021 End: 08-28-2021 ambulatory WYATT TAPIA [facility] Start: 08-28-2021 End: 08-28-2021 Evaluation and management of inpatient Wyatt Tapia MD Work Phone: [facility] Start: 08-28-2021 End: 08-28-2021 Subsequent hospital visit by physician Wyatt Tapia MD Work Phone: [facility] Start: 08-26-2021 End: 08-27-[address] DOCTOR THOMAS Facility:[facility] Start: 07-14-2021 Refill Paul Nj MD Work Phone: General Surgery Comment on above: Refill Request Start: 05-10-2021 End: 05-10-2021 ambulatory PAUL NJ Facility:[facility] Procedures Date Procedure Procedure Detail Performing Clinician Start: 04-11-2024 Colonoscopy Vidya Brito Start: 04-11-2024 Esophagogastroduodenoscopy Vidya jenkins Start: 03-13-2022 Bariatric surgeon Vidya Brito Start: 08-28-2021 POCT GLUCOSE BLOOD Wyatt Tapia MD Work Phone: Start: 08-28-2021 Radiologic examination pelvis 1/2 views Zafar ACOSTA Work Phone: Start: 08-28-2021 POCT GLUCOSE BLOOD Wyatt Tapia MD Work Phone: Start: 03-22-2021 Antibody screen Comment on above: Performed By: #### TSCR30 ####[address]is [id number] [place] [phone] Start: 12-14-2020 Antibody screen Comment on above: Performed By: #### TSCR30 ####Boris Felix [id number] [place] [phone] Dilation and curettage Marcel Brito Total knee replacement Marcel Brito Total replacement of hip Marjorie Brito Plan of Treatment Date Care Activity Detail Author Start: 12-14-[address] [facility] Start: 03-22-2024 DIABETES SCREEN DIABETES SCREEN [facility] Start: 08-02-2022 Hypertension/CHF/CAD Annual BMP Blood Test Hypertension/CHF/CAD Annual BMP Blood Test [facility] Start: 08-28-2021 End: 08-28-2021 Arthrp acetblr/prox fem prostc agrft/algrft ARTHROPLASTY HIP TOTAL Unilateral primary osteoarthritis, right hip 08/28/2021 12:57 PM EDT [facility] Start: 07-01-2021 Adolescent depression screening assessment Depression Screening [facility] Start: 07-01-2021 Hepatitis C screening Hepatitis C Screening [facility] Start: 07-01-2021 HIV screening HIV Screening [facility] [facility] Start: 07-01-2021 Lipid panel Cholesterol Screening (Lipid Panel) [facility] Start: 07-01-2021 Screening for malignant neoplasm of breast Breast Cancer Screening [facility] Start: 07-01-2021 Screening for malignant neoplasm of colon Colorectal Cancer Screening: Colonoscopy [facility] Start: 07-01-2021 Screening for malignant neoplasm of lung Lung Cancer Screening (Low Dose CT) [facility] Start: 07-01-2021 Social Influencers of Health Screening Social Influencers of Health Screening [facility] Start: 07-17-2019 Influenza vaccination LUNG CANCER SCREENING [facility] Start: 2014 SHINGRIX VACCINE (1 of 2) SHINGRIX VACCINE (1 of 2) [facility] Start: 2014 Zoster Vaccines (1 of 2) Zoster Vaccines (1 of 2) [facility] Start: 2009 COLOGUARD (FIT-DNA) COLOGUARD (FIT-DNA) [facility] Start: [address] [facility] Start: 2009 COLORECTAL CANCER SCREENING COLORECTAL CANCER SCREENING [facility] Start: [address] [facility] Start: 2009 FECAL OCCULT BLOOD FECAL OCCULT BLOOD [facility] Start: [address] [facility] Start: [address] [facility] Start: 1994 HPV TESTING HPV TESTING [facility] Start: 1985 PAP TESTING PAP TESTING [facility] Start: 1985 Screening for malignant neoplasm of cervix Cervical Cancer Screening: Pap Smear [facility] Start: 07-17-1983 DTaP,Tdap,and Td Vaccines (1 - Tdap) DTaP,Tdap,and Td Vaccines (1 - Tdap) [facility] Start: 07-17-1983 Urine microalbumin profile DTAP,TDAP,TD (1 - Tdap) [facility] Start: 1982 HEPATITIS C SCREENING HEPATITIS C SCREENING [facility] Start: 1982 HIV SCREENING HIV SCREENING [facility] Start: 1976 Adult depression screening assessment DEPRESSION SCREENING [facility] Glucose [Mass/volume ] in Serum or Plasma POCT Glucose, blood Point of Care Testing-Docked Device Routine 08/28/2021 3:42 PM EDT [facility] Work Phone: Immunizations Immunization Date Immunization Notes Care Provider Fa wojciech 02-11-2024 influenza virus vacc ine, unspecified formulation Dasilva Sarmini [facility] 01-23-2023 influenza virus vacc ine, unspecified formulation Dasilva Sarmini [facility] 02-24-2022 influenza virus vacc ine, unspecified formulation Dasilva Sarmini [facility] 04-25-2021 SARS-CoV-2 (COVID-19 ) mRNA-1273 vaccine Dasilva Sarmini [facility] Comment on above: Result Comment: 2023: [id number] 12-28-2020 influenza virus vacc ine, unspecified formulation Dasilva Sarmini [facility] 12-28-2020 influenza, injectabl e, quadrivalent, preservative free Paul Nj MD Work Phone: [facility] 09-21-2020 SARS-CoV-2 (COVID-19 ) Ad26 vaccine, recombinant Dasilva Sarmini [facility] Comment on above: Result Comment: 2023: --SELECT TARGET POPULATION/OCCUPATION-- 01-05-2020 influenza virus vacc ine, unspecified formulation Dasilva Sarmini [facility] 02-03-2019 influenza virus vacc ine, unspecified formulation Dasilva Sarmini [facility] 01-25-2019 influenza, unspecifi ed formulation Dasilva Sarmini [facility] 03-13-2018 pneumococcal polysaccharide vaccine, 23 valent Dasilva Sarmini [facility] 01-20-2018 influenza virus vacc ine, unspecified formulation Dasilva Sarmini [facility] 01-11-2018 influenza virus vacc ine, unspecified formulation Dasilva Sarmini [facility] 04-09-2017 pneumococcal polysaccharide vaccine, 23 valent Dasilva Sarmini [facility] 01-14-2016 pneumococcal polysaccharide vaccine, 23 valent Dasilva Sarmini [facility] Payers Date Payer Category Payer Medicaid [id number] 2020 Medicaid [id number] 1965 Unknown [id number] .16.8 40.1.077256.3.579.2.1143 1964 Unknown [id number] 2.16.84 0.1.476468.3.579.2.593 1964 Unknown [id number] 2.16.84 0.1.045208.3.579.2.593 1965 Unknown [id number] 2.16.84 0.1.498384.3.579.2.593 1964 Unknown [id number] 2.16.84 0.1.666018.3.579.2.593 1964 Unknown [id number] 2.16.84 0.1.311610.3.579.2.593 1964 Unknown [id number] 2.16.84 0.1.536388.3.579.2.593 1964 Unknown [id number] 2.16.84 0.1.358938.3.579.2.593 1964 Unknown [id number] 2.16.84 0.1.319439.3.579.2.593 1964 Unknown [id number] 2.16.84 0.1.875725.3.579.2.593 1964 Unknown [id number] 2.16.84 0.1.811614.3.579.2.593 1964 Unknown [id number] 2.16.84 0.1.659057.3.579.2.593 1964 Unknown [id number] 2.16.84 0.1.810257.3.579.2.593 1964 Unknown [id number] 2.16.84 0.1.673089.3.579.2.593 1964 Unknown [id number] 2.16.84 0.1.978979.3.579.2.593 1964 Unknown [id number] 2.16.84 0.1.729746.3.579.2.593 1964 Unknown [id number] 2.16.84 0.1.041797.3.579.2.593 1964 Unknown [id number] 2.16.84 0.1.434931.3.579.2.593 1964 Unknown [id number] 2.16.84 0.1.419694.3.579.2.593 1964 Unknown [id number] 2.16.84 0.1.567157.3.579.2.593 1964 Unknown [id number] 2.16.84 0.1.310696.3.579.2.593 1964 Unknown [id number] 2.16.8 40.1.821787.3.579.2.727 1964 Unknown [id number] 2.16.8 40.1.546442.3.579.2.727 1964 Unknown [id number] 2.16.8 40.1.722292.3.579.2.727 1960 Medicaid [id number] Social History Date Type Detail Facility Start: 12-12-2020 End: 03-07-2024 Tobacco smoking status NHIS Ex-smoker [facility] Work Phone: Start: 08-27-2015 End: 04-13-2018 History of tobacco use Current smoker [facility] Work Phone: End: 04-13-2018 History of tobacco use Cigarette Smoker [facility] Work Phone: Start: 12-12-2020 Cigarettes smoked current (pack per day) - Reported 1 [facility] Start: 12-12-2020 End: 08-26-2021 Tobacco use and exposure Smokeless tobacco non-user [facility] Work Phone: Start: 12-12-2020 History SDOH Alcohol Comment 2-[address] [facility] Start: 1965 Sex Assigned At Female [facility] Start: 08-28-2021 Alcohol intake Ex-drinker (finding) [facility] Start: 1965 Sex Assigned At Not on file T [facility] Start: 08-18-2021 End: 08-28-2021 Exposure to SARS-CoV-2 (event) Not sure [facility] Sex Assigned At Female [facility] Medical Equipment Procedure Code Equipment Code Equipment Origin al Text Equipment Identifier Dates G7 Finned 4 H Sh ell 54mm F - Sn/A - [id number] ()[id number] [id number]( 21)N/A, [id number] FDA Start: 08-28-2021 Liner G7 Neutral Ve 36mm F - Sn/A - [id number] ()[id number] [id number] (21)N/A, [id number] FDA Start: 08-28-2021 G7 Screw 6.5mm X 30mm - Sn/A - [id number] ()[id number] [id number]( 21)N/A, [id number] FDA Start: 08-28-2021 Complete Ho Collarless Sz 6 - Sn/A - [id number] ()[id number] [id number]( 21)N/A, [id number] FDA Start: 08-28-2021 Hip Hd Fem 03/26 Blx 36mm -3.5 - Sn/A - [id number] ()[id number] [id number]( 21)N/A, [id number] FDA Start: 08-28-2021 Functional Status Date Assessment Result Facility 04-11-2024 Functional Status N/A [facility] 03-07-2024 Functional Status N/A [facility] Clinical Notes 12-27-2020 to 04-25-2024 Note Date & Type Note Facility 04-25-2024 Note History and Physical Patient: JESSICA DILLARD Age: 58 years Sex: Female : 1965 Associated Diagnoses: None Author: Vidya Brito MD Preoperative Information Indication for procedure and diagnosis: GERD and history of colon polyps Chief Complaint as above Review of Systems All systems reviewed, negative except as mentioned above Health Status Current medications: (Selected) Prescriptions Prescribed pantoprazole 40 mg Oral EC Tab: 40 mg = 1 tab(s), Oral, Daily, # 30 tab(s), Refills(s) 5, Pharmacy: [facility]/pharmacy #[id number], 162.56, cm, 01/10/19 9:41:00 EDT, Height/Length Measured, 127.6, kg, 01/10/19 9:41:00 EDT, Weight Measured Documented Medications Documented Floranex: Oral, TID, Refills(s) 0, Prophylaxis Tylenol: 650 mg, Oral, q4hr, Refills(s) 0, Pain Vitamin D3: Oral, Daily, Refills(s) 0, Prophylaxis acetaminophen-hydrocodone 325 mg-5 mg oral tablet: tab(s), Oral, q6hr as needed for pain, Refill(s) 0 baclofen 10 mg Tab: = 1 tab(s), Oral, q18hr, Refills(s) 0, Pain celecoxib 200 mg Cap: = 1 cap(s), Oral, q18hr, Refills(s) 0, Inflammation cranberry: Oral, Daily, Refill(s) 0, Prophylaxis magnesium glycinate: Oral, Daily, Refills(s) 0, Prophylaxis melatonin: 10 mg, Oral, Once a day (at bedtime), Refills(s) 0, Sleep multivitamin: Oral, Daily, Refill(s) 0, Prophylaxis phentermine 37.5 mg Tab: = 1 tab(s), Oral, q18hr, Refills(s) 0, Other (see comment), Home Medications (12) Active acetaminophen-hydrocodone 325 mg-5 mg oral tablet , PRN, Oral, q6hr baclofen 10 mg Tab 1 tab(s), Oral, q18hr celecoxib 200 mg Cap 1 cap(s), Oral, q18hr cranberry , Oral, Daily Floranex , Oral, TID magnesium glycinate , Oral, Daily melatonin 10 mg, Oral, Once a day (at bedtime) multivitamin , Oral, Daily pantoprazole 40 mg Oral EC Tab 40 mg = 1 tab(s), Oral, Daily phentermine 37.5 mg Tab 1 tab(s), Oral, q18hr Tylenol 650 mg, Oral, q4hr Vitamin D3 , Oral, Daily Problem list: All Problems Arthritis / SNOMED CT 5594750 / Confirmed Obesity / SNOMED CT 4114548299 / Confirmed Sleep apnea / SNOMED CT 115629547 / Confirmed Colon polyps / SNOMED CT 409188699 / Confirmed Family history of colon cancer / SNOMED CT 221896039 / Confirmed Personal history of colon polyps, unspecified / SNOMED CT 3614771127 / Confirmed Family history of liver cancer / SNOMED CT 4827422385 / Confirmed Histories Past Medical History: Resolved Bronchitis (24322328): Resolved. Pneumonia (738063127): Resolved. Family History: Mother: () Age at unknown. Liver cancer Grandparent: () Age at unknown. Colon cancer Procedure history: Colonoscopy ([id number]) on 04/11/2024 at 58 Years. Esophagogastroduodenoscopy ([id number]) on 04/11/2024 at 58 Years. Bariatric surgeon ([id number]) on 03/13/2022 at 56 Years. Hip Replacement. Knee Replacement. Dilation and curettage ([id number]). 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 Physical Examination No qualifying data available General: in Nad Abdomen: Soft, NTND Impression and Plan Impression: GERD and history of colon polyps Plan: -EGD and Colonoscopy z [facility] Comment on above: Result Comment: Elec tronically Signed By: Alisha OSORIO, Vidya Lagunas\.chetan\Date and Time Signed: 04/25/24 14:26 EST 04-11-2024 Hospital Discharg e instructions Patient Education 04/11/2024 12:21:38 Endoscopy, Care After Procedure [facility] [place] Endoscopy Care After Procedure Please read the instructions outlined below and [...] doctor. ACTIVITY You may resume your regular activity but move at a slower pace for the next 24 hours. Take frequent rest periods for the next 24 hours. Walking will help expel (get rid of) the air and reduce the bloated feeling in your abdomen. No driving for 24 hours (because of the anesthesia (medicine) used during the test). You may shower. Do not sign any important legal documents or operate any machinery for 24 hours (because of the anesthesia used during the test). NUTRITION Drink plenty of fluids. You may resume your normal diet. Begin with a light meal and progress to your normal diet. Avoid alcoholic beverages for 24 hours or as instructed by your caregiver. MEDICATIONS You may resume your normal medications unless your caregiver tells you otherwise. WHAT YOU CAN EXPECT TODAY You may experience abdominal discomfort such as a feeling of fullness or gas pains. FOLLOW-UP Your doctor will discuss the results of your test with you. SEEK IMMEDIATE MEDICAL ATTENTION IF ANY OF THE FOLLOWING OCCUR: Excessive nausea (feeling sick to your stomach) and/or vomiting. Severe abdominal pain and distention (swelling). Trouble swallowing. Temperature over 100 F (37.8 C). Rectal bleeding or vomiting of blood. Document Released: 11/11/2004 Document Re-Released: 09/21/2006 ExitCare Patient Information 2010 nprogress. 04/11/2024 12:21:34 Hemorrhoids, Btxy-gk-Fxuc Hemorrhoids Hemorrhoids are swollen veins that may form: In the butt (rectum). These are called internal hemorrhoids. Around the opening of the butt (anus). These are called external hemorrhoids. Most hemorrhoids do not cause very bad problems. They often get better with changes to your lifestyle and what you eat. What are the causes? Having trouble pooping (constipation) or watery poop (diarrhea). Pushing too hard when you poop. . Being very overweight (obese). Sitting for too long. Riding a bike for a long time. Heavy lifting or other things that take a lot of effort. Anal sex. What are the signs or symptoms? Pain. Itching or soreness in the butt. Bleeding from the butt. Leaking poop. Swelling. One or more lumps around the opening of your butt. How is this treated? In most cases, hemorrhoids can be treated at home. You may be told to: Change what you eat. Make changes to your lifestyle. If these treatments do not help, you may need to have a procedure done. Your doctor may need to: Place rubber bands at the bottom of the hemorrhoids to make them fall off. Put medicine into the hemorrhoids to shrink them. Shine a type of light on the hemorrhoids to cause them to fall off. Do surgery to get rid of the hemorrhoids. Follow these instructions at home: Medicines Take fvah-rpo-oajpxre and prescription medicines only as told by your doctor. Use creams with medicine in them or medicines that you put in your butt as told by your doctor. Eating and drinking Eat foods that have a lot of fiber in them. These include whole grains, beans, nuts, fruits, and vegetables. Ask your doctor about taking products that have fiber added to them (fibersupplements). Take in less fat. You can do this by: ?Eating low-fat dairy products. ?Eating less red meat. ?Staying away from processed foods. Drink enough fluid to keep your pee (urine) pale yellow. Managing pain and swelling Take a warm-water bath (sitz bath) for 20 minutes to ease pain. Do this 3 4 times a day. You may do this in a bathtub. You may also use a portable sitz bath that fits over the toilet. If told, put ice on the painful area. It may help to use ice between your warm baths. ?Put ice in a plastic bag. ?Place a towel between your skin and the bag. ?Leave the ice on for 20 minutes, 2 3 times a day. If your skin turns bright red, take off the ice right away to prevent skin damage. The risk of damage is higher if you cannot feel pain, heat, or cold. General instructions Exercise. Ask your doctor how much and what kind of exercise is best for you. Go to the bathroom when you need to poop. Do not wait. Try not to push too hard when you poop. Keep your butt dry and clean. Use wet toilet paper or moist towelettes after you poop. Do not sit on the toilet for a long time. Contact a doctor if: You have pain and swelling that do not get better with treatment. You have trouble pooping. You cannot poop. You have pain or swelling outside the area of the hemorrhoids. Get help right away if: You have bleeding from the butt that will not stop. This information is not intended to replace advice given to you by your health care provider. Make sure you discuss any questions you have with your health care provider. Document Revised: 12/10/2022 Document Reviewed: 12/10/2022 [employer] Patient Education 2023 DailyStrength. 04/11/2024 12:21:31 Colon Polyps Colon Polyps Colon polyps are tissue growths inside the colon, which is part of the large intestine. They are one of the types of polyps that can grow in the body. A polyp may be a round bump or a mushroom-shaped growth. You could have one polyp or more than one. Most colon polyps are noncancerous (benign). However, some colon polyps can become cancerous over time. Finding and removing the polyps early can help prevent this. What are the causes? The exact cause of colon polyps is not known. What increases the risk? The following factors may make you more likely to develop this condition: Having a family history of colorectal cancer or colon polyps. Being older than 45 years of age. Being younger than 45 years of age and having a significant family history of colorectal cancer or colon polyps or a genetic condition that puts you at higher risk of getting colon polyps. Having inflammatory bowel disease, such as ulcerative colitis or Crohn's disease. Having certain conditions passed from parent to child (hereditary conditions), such as: ?Familial adenomatous polyposis (FAP). ?Mane syndrome. ?Turcot syndrome. ?Peutz Jeghers syndrome. ?MUTYH-associated polyposis (MAP). Being overweight. Certain lifestyle factors. These include smoking cigarettes, drinking too much alcohol, not getting enough exercise, and eating a diet that is high in fat and red meat and low in fiber. Having had childhood cancer that was treated with radiation of the abdomen. What are the signs or symptoms? Many times, there are no symptoms. If you have symptoms, they may include: Blood coming from the rectum during a bowel movement. Blood in the stool (feces). The blood may be bright red or very dark in color. Pain in the abdomen. A change in bowel habits, such as constipation or diarrhea. How is this diagnosed? This condition is diagnosed with a colonoscopy. This is a procedure in which a lighted, flexible scope is inserted into the opening between the buttocks (anus) and then passed into the colon to examine the area. Polyps are sometimes found when a colonoscopy is done as part of routine cancer screening tests. How is this treated? This condition is treated by removing any polyps that are found. Most polyps can be removed during a colonoscopy. Those polyps will then be tested for cancer. Additional treatment may be needed depending on the results of testing. Follow these instructions at home: Eating and drinking Eat foods that are high in fiber, such as fruits, vegetables, and whole grains. Eat foods that are high in calcium and vitamin D, such as milk, cheese, yogurt, eggs, liver, fish, and broccoli. Limit foods that are high in fat, such as fried foods and desserts. Limit the amount of red meat, precooked or cured meat, or other processed meat that you eat, such as hot dogs, sausages, jimenez, or meat loaves. Limit sugary drinks. Lifestyle Maintain a healthy weight, or lose weight if recommended by your health care provider. Exercise every day or as told by your health care provider. Do not use any products that contain nicotine or tobacco, such as cigarettes, e-cigarettes, and chewing tobacco. If you need help quitting, ask your health care provider. Do not drink alcohol if: ?Your health care provider tells you not to drink. ?You are , may be , or are planning to become . If you drink alcohol: ?Limit how much you use to: ?0 1 drink a day for women. ?0 2 drinks a day for men. ?Know how much alcohol is in your drink. In the [place] one drink equals one 12 oz bottle of beer (355 mL), one 5 oz glass of wine (148 mL), or one 1 oz glass of hard liquor (44 mL). General instructions Take whln-jej-nhsgvam and prescription medicines only as told by your health care provider. Keep all follow-up visits. This is important. This includes having regularly scheduled colonoscopies. Talk to your health care provider about when you need a colonoscopy. Contact a health care provider if: You have new or worsening bleeding during a bowel movement. You have new or increased blood in your stool. You have a change in bowel habits. You lose weight for no known reason. Summary Colon polyps are tissue growths inside the colon, which is part of the large intestine. They are one type of polyp that can grow in the body. Most colon polyps are noncancerous (benign), but some can become cancerous over time. This condition is diagnosed with a colonoscopy. This condition is treated by removing any polyps that are found. Most polyps can be removed during a colonoscopy. This information is not intended to replace advice given to you by your health care provider. Make sure you discuss any questions you have with your health care provider. Document Revised: 07/18/2020 Document Reviewed: 07/18/2020 [employer] Patient Education 2023 DailyStrength. 04/11/2024 12:21:30 Colonoscopy, Care After Surgery [facility] ([facility]USTOM) Colonoscopy Care After Surgery Please read the [...] severe or gets worse throughout the day. Follow Up Care 03/07/2024 09:49:08 With:Alisha OSORIO, Vidya Lagunas, BRANDYN, [facility] Address: When: Unknown Comments:Call for any problems. Office will call to schedule follow up appointment [facility] 04-11-2024 Evaluation + Plan note Extrac candie from: Title:ANES Post-operative Note - General Author: Barrett Oliva Jr., DO Date:04/11/24 Plan Transfer/Discharge: Transfer/Discharge Discharge when meets criteria ( From PACU to Ambulatory Surgery Unit, and To home ). Extracted from: Title:BHAVANA Pre-operative Note - Endo Author:Barrett Fisher Jr., DO Date:04/11/24 Plan [place] [employer] Anesthesiologists (ASA) physical status classification: Class III. Anesthetic Preoperative Plan: Anesthesia General, and -TIVA. Future Scheduled Tests Radiology* US Liver 03/07/24 [facility] [id number] NoteProgress Note-Physician Patient: JESSICA DILLARD MRN: Age: 58 years Sex: Female : 1965 Associated Diagnoses: None Author: Barrett Oliva Jr., DO Postoperative Information Postoperative disposition: Postoperative disposition: Home. Optimetrix number: Optimetrix number [id number]. Anesthetic utilized: General. Physical Examination Vital Signs 04/11/2024 12:37 EST Heart Rate Monitored 76 bpm Respiratory Rate Monitored 17 br/min Systolic Blood Pressure 110 mmHg Diastolic Blood Pressure 76 mmHg Mean Arterial Pressure, Cuff 87 mmHg SpO2 98 % 04/11/2024 12:25 EST Heart Rate Monitored 75 bpm Respiratory Rate Monitored 18 br/min Systolic Blood Pressure 102 mmHg Diastolic Blood Pressure 82 mmHg Mean Arterial Pressure, Cuff 89 mmHg SpO2 96 % 04/11/2024 12:12 EST Temperature Temporal Artery 36.7 DegC Heart Rate Monitored 88 bpm Respiratory Rate Monitored 15 br/min Systolic Blood Pressure 89 mmHg LOW Diastolic Blood Pressure 58 mmHg LOW Mean Arterial Pressure, Cuff 68 mmHg SpO2 98 % Pain Assessment: Controlled. General: Awake, Alert, Appropriate. Respiratory: Adequate air exchange, Non-labored. Cardiovascular: Stable, Normal peripheral perfusion. Neurological: Neurologic exam at baseline. No changes.. Assessment Anesthetic outcome No anesthetic complications noted. No nausea/vomiting. Review / Management Condition: Stable. Plan Transfer/Discharge: Transfer/Discharge Discharge when meets criteria ( From PACU to Ambulatory Surgery Unit, and To home ).[facility] Comment: Electronically Signed By: Barrett Oliva Jr., DO\.br\Date and Time Signed: 04/11/24 13:20 [id number] NotePatient Education - Text Endoscopy Care After Procedure Please read the instructions outlined below and refer to this sheet in the next few weeks. These discharge instructions provide you with general information on caring for yourself after you leave [facility]. Your doctor may also give you specific instructions. While your treatment has been planned according to the most current medical practices available, unavoidable complications occasionally occur. If you have any problems or questions after discharge, please call your doctor. ACTIVITY ??? You may resume your regular activity but move at a slower pace for the next 24 hours. ??? Take frequent rest periods for the next 24 hours. ??? Walking will help expel (get rid of) the air and reduce the bloated feeling in your abdomen. ??? No driving for 24 hours (because of the anesthesia (medicine) used during the test). ??? You may shower. ??? Do not sign any important legal documents or operate any machinery for 24 hours (because of theanesthesia used during the test). NUTRITION ??? Drink plenty of fluids. ??? You may resume your normal diet. ??? Begin with a light meal and progress to your normal diet. ??? Avoid alcoholic beverages for 24 hours or as instructed by your caregiver. MEDICATIONS ??? You may resume your normal medications unless your caregiver tells you otherwise. WHAT YOU CAN EXPECT TODAY ??? You may experience abdominal discomfort such as a feeling of fullness or ???gas??? pains. FOLLOW-UP ??? Your doctor will discuss the results of your test with you. seek immediate medical attention if any of the following occur: ??? Excessive nausea (feeling sick to your stomach) and/or vomiting. ??? Severe abdominal pain and distention (swelling). ??? Trouble swallowing. ??? Temperature over 100 F (37.8??? C). ??? Rectal bleeding or vomiting of blood. Document Released: 11/11/2004 Document Re-Released: 09/21/2006 ExitCare??? Patient Information ???2010 nprogress. Colonoscopy Care After Surgery Please read the instructions outlined below and refer to this sheet in the next few weeks. These discharge instructions provide you with general information on caring [facility] Your doctor may also give you [...] Heavy or fried foods are harder to digestand may make you feel nauseated (sick to [...] severe or gets worse throughout the day. Gastroenterology Hemorrhoids Hemorrhoids are swollen veins that may form: ??? In the butt (rectum). These are called internal hemorrhoids. ??? Around the opening of the butt (anus). These are called external hemorrhoids. Most hemorrhoids do not cause very bad problems. They often get better with changes to your lifestyle and what you eat. What are the causes? Having trouble pooping (constipation) or watery poop (diarrhea). ??? Pushing too hard when you poop. ??? . ??? Being very overweight (obese). ??? Sitting for too long. ??? Riding a bike for a long time. ??? Heavy lifting or other things that take a lot of effort. ??? Anal sex. What are the signs or symptoms? Pain. ??? Itching or soreness in the butt. ??? Bleeding from the butt. ??? Leaking poop. ??? Swelling. ??? One or more lumps around the opening of your butt. How is this treated? In most cases, hemorrhoids can be treated at home. You may be told to: (more content not included)...[facility]12-30-2024 Note Endoscopic Procedure Report - Other Patient: JESSICA DILLARD Age: 58 years Sex: Female : 1965 Associated Diagnoses: None Author: Alisha OSORIO, Vidya Lagunas Pre-Procedure Procedure Date 04/11/2024 12:06:00 . Procedure Type: Colonoscopy with removal of tumor(s), polyp(s), or other lesion(s) by cold snare technique. Procedure provider Performed by Alisha OSORIO, Vidya Lagunas. Current history and physical Reviewed. Bariatric surgeon ([id number]) on 03/13/2022 at 56 Years. Hip Replacement. Knee Replacement. Dilation and curettage ([id number]).. Past Medical History Resolved Bronchitis ([id number]): Resolved. Pneumonia ([id number]): Resolved.. Family History Liver cancer Mother () Colon cancer Grandparent () . Procedure History Bariatric surgeon ([id number]) on 03/13/2022 at 56 Years. Hip Replacement. Knee Replacement. Dilation and curettage ([id number]).. Colorectal neoplasm risk assessment High risk Previous history of polyps. . Informed Consent After discussing the rationale, risks and benefits, and alternatives to this procedure, the patient provided signed consent for the procedure. Pre-procedure diagnosis: History of colon polyps. Medications (Selected) Inpatient Medications Ordered Lactated Ringers IV Tatyana 1000 mL 1,000 mL: 1,000 mL, IV, 100 mL/hr, Routine, Start date 04/11/24 10:48:00 EST, 10 hour(s), Total volume (mL): 1,000, 95 kg, 2.07, m2 Sodium Chloride 0.9% IV Tatyana 1000 mL 1,000 mL: 1,000 mL, IV, 20 mL/hr, Routine, Start date 04/11/24 6:44:00 EST, 50 hour(s), Total volume (mL): 1,000 Prescriptions Prescribed pantoprazole 40 mg Oral EC Tab: 40 mg = 1 tab(s), Oral, Daily, # 30 tab(s), Refills(s) 5, Pharmacy:[facility]/pharmacy #[id number], 162.56, cm, 01/10/19 9:41:00 EDT, Height/Length Measured, 127.6, kg, 01/10/19 9:41:00 EDT, Weight Measured Documented Medications Documented Floranex: Oral, TID, Refills(s) 0, Prophylaxis Tylenol: 650 mg, Oral, q4hr, Refills(s) 0, Pain Vitamin D3: Oral, Daily, Refills(s) 0, Prophylaxis acetaminophen-hydrocodone 325 mg-5 mg oral tablet: tab(s), Oral, q6hr as needed for pain, Refill(s)0 baclofen 10 mg Tab: = 1 tab(s), Oral, q18hr, Refills(s) 0, Pain celecoxib 200 mg Cap: = 1 cap(s), Oral, q18hr, Refills(s) 0, Inflammation cranberry: Oral, Daily, Refill(s) 0, Prophylaxis magnesium glycinate: Oral, Daily, Refills(s) 0, Prophylaxis melatonin: 10 mg, Oral, Once a day (at bedtime), Refills(s) 0, Sleep multivitamin: Oral, Daily, Refill(s) 0, Prophylaxis phentermine 37.5 mg Tab: = 1 tab(s), Oral, q18hr, Refills(s) 0, Other (see comment) ASA Classification: Class III. . Monitoring: See anesthesia record. . Procedure The procedure was performed in the hospital. See anesthesia record for sedation given during procedure. The patient was positioned starting in the left lateral decubitus position. Endoscope type usedwas an adult-size. The endoscope was lubricated then introduced through the anus. The scope was advanced to the terminal ileum. No difficulties encountered during the procedure. The bowel preparationquality was adequate (see polyps greater than or equal to 6 millimeters). The patient tolerated theprocedure well. Time to Cecum: 3 min Withdrawal time 10 min Findings 1. Small internal and external hemorrhoids 2. Mild sigmoid diverticulosis 3. 5 mm sessile polyp in the ascending colon, resected with cold snare completely and retrieved 4. Normal examined terminal ileum Images Procedure images: Rec_hd_video___06_162.jpg Rec_hd_video___00_317.jpg Rec_hd_video___00_514.jpg Rec_hd_video___53_443.jpg Rec_hd_video___02_520.jpg Rec1_hd_video____54_256.jpg Rec1_hd_video___10_51_185.jpg Rec1_hd_video__09_01_717.jpg Rec1_hd_video___08_20_198.jpg Rec1_hd_video____13_130.jpg . Post-Procedure Complications: none. Estimated blood loss: Minimal. Specimens: sent to pathology. Devices/ implants: none left in place. Impression and Plan 1. Small internal and external hemorrhoids 2. Mild sigmoid diverticulosis 3. 5 mm sessile polyp in the ascending colon, resected with cold snare completely and retrieved 4. Normal examined terminal ileum Recommendations: Repeat colonoscopy:: 7 yrs. Follow-up:: in clinic for 1-2 weeks when pathology is available. Diet:: Previous. Medication resumption:: Continue current medications, Avoid NSAIDs. Return to activities:: After 24 ho (more content not included)...[facility] on above:Result Comment: Electronically Signed By: Vidya Brito MD\.br\Date and Time Signed: 04/11/24 12:07 ESTOther Comment: Missing Attachment - attachment storage system not supported [id number] Can be viewed in source systemMissing Attachment - attachment storage system not supported [id number] Can be viewed insource systemMissing Attachment - attachment storage system not supported [id number] Can be viewed in source systemMissing Attachment - attachment storage system not supported [id number] Can be viewed in so ce systemMissing Attachment - attachment storage system not supported [id number] Can be viewed in source systemMissing Attachment - attachment storage system not supported [id number] Can be viewed in source systemMissing Attachment - attachment storage system not supported [id number] Can be viewed in source systemMissing Attachment - attachment storage system not supported [id number] Can be viewed in source systemMissing Attachment - attachment storage system not supported [id number] Can be viewed in sourcesystemMissing Attachment - attachment storage system not supported [id number] Can be viewed in source [id number] Note Endoscopic Procedure Report - Other Patient: JESSICA DILLARD Age: 58 years Sex: Female : 1965 Associated Diagnoses: None Author: Vidya Brito MD Pre-Procedure Procedure Date 04/11/2024 11:51:00 . Procedure Type: Esophagogastroduodenoscopy. Procedure provider Performed by Vidya Brito MD. Current history and physical Documented on chart. Informed Consent After discussing the rationale, risks and benefits, and alternatives to this procedure, the patient provided signed consent for the procedure. Pre-procedure diagnosis: GERD, history of sleeve surgery and esophagitis. ASA Classification: Class III. . Monitoring: See anesthesia record. . Procedure The procedure was performed in the hospital. See anesthesia record for sedation given during procedure. The patient was positioned starting in the left lateral decubitus position and with safety measures. Endoscope type used was an adult- size, introduced orally, advanced to the 3rd portion of the duodenum. No difficulty was encountered during the procedure. Views were excellent. The patient tolerated the procedure well. Findings 1. Esophageal landmarks identified, small hiatal hernia noted, no esophagitis or Oliva's esophagus 2. Evidence of bariatric surgery in the stomach with sleeve anatomy, no ulcers. 3. Normal examined duodenum Images Procedure images: Rec_hd_video___50_540.jpg Rec_hd_video__39_701.jpg Rec1_hd_video___16_105.jpg Rec_hd_video__12_677.jpg Rec_hd_video___07_502.jpg Rec_hd_video___00_937.jpg Rec1_hd_video___56_631.jpg Rec_hd_video___49_967.jpg Rec_hd_video___28_450.jpg . Post-Procedure Complications: none. Estimated blood loss: none. Specimens: none. Devices/ implants: none left in place. Impression and Plan 1. Esophageal landmarks identified, small hiatal hernia noted, no esophagitis or Oliva's esophagus 2. Evidence of bariatric surgery in the stomach with sleeve anatomy, no ulcers. 3. Normal examined duodenum Recommendations: -Resume previous diet -Resume home medicationsOhiohealthComment on above:Result Comment: Electronically Signed By: Alisha OSORIO, Vidya Lagunas\.br\Date and Time Signed: 04/11/24 11:53 ESTOther Comment: Missing Attachment - attachment storage system not supported [id number] Can be viewed in source systemMissboston nursery for blind [facility] Attachment - attachment storage system not supported [id number] Can be viewed [facility] systemMissing Attachment - attachment storage system not supported [id number] Can be viewed in source systemMissing Attachment - attachment storage system not supported [id number] Can be viewed in source systemMissboston [facility] Attachment - attachment storage system not supported [id number] Can be viewed in source systemMissboston [facility] Attachment - attachment storage system not supported [id number] Can be viewed in source systemMissboston [facility] Attachment - attachment storage system not supported [id number] Can be viewed in source systemMissboston [facility] Attachment - attachment storage system not supported [id number] Can be viewed in source systemMissboston [facility] Attachment - attachment storage system not supported [id number] Can be viewed in [facility] 04-11-2024 NoteProgress Note-Physician Patient: JESSICA DILLARD Age: 58 years Sex: Female : 1965 Associated Diagnoses: None Author: Barrett Oliva Jr., DO Preoperative Information Anesthesia history: Patient history: No prior anesthetic problems. Informed consent: Signed by patient. Re-evaluation prior to induction: Initial evaluation reviewed: No significant change. Review of Systems Respiratory: Negative except as documented in history of present illness. Cardiovascular: Negative except as documented in history of present illness. Health Status Allergies: Allergic Reactions (Selected) Severity Not Documented Cipro- Unknown., Allergies (1) Active Severity Reaction Cipro Unknown Current medications: (Selected) Inpatient Medications Ordered Lactated Ringers IV Tatyana 1000 mL 1,000 mL: 1,000 mL, IV, 100 mL/hr, Routine, Start date 04/11/24 10:48:00 EST, 10 hour(s), Total volume (mL): 1,000, 95 kg, 2.07, m2 Sodium Chloride 0.9% IV Tatyana 1000 mL 1,000 mL: 1,000 mL, IV, 20 mL/hr, Routine, Start date 04/11/24 6:44:00 EST, 50 hour(s), Total volume (mL): 1,000 Prescriptions Prescribed pantoprazole 40 mg Oral EC Tab: 40 mg = 1 tab(s), Oral, Daily, # 30 tab(s), Refills(s) 5, Pharmacy:[facility]/pharmacy #[id number], 162.56, cm, 01/10/19 9:41:00 EDT, Height/Length Measured, 127.6, kg, 01/10/19 9:41:00 EDT, Weight Measured Documented Medications Documented Floranex: Oral, TID, Refills(s) 0, Prophylaxis Tylenol: 650 mg, Oral, q4hr, Refills(s) 0, Pain Vitamin D3: Oral, Daily, Refills(s) 0, Prophylaxis acetaminophen-hydrocodone 325 mg-5 mg oral tablet: tab(s), Oral, q6hr as needed for pain, Refill(s)0 baclofen 10 mg Tab: = 1 tab(s), Oral, q18hr, Refills(s) 0, Pain celecoxib 200 mg Cap: = 1 cap(s), Oral, q18hr, Refills(s) 0, Inflammation cranberry: Oral, Daily, Refill(s) 0, Prophylaxis magnesium glycinate: Oral, Daily, Refills(s) 0, Prophylaxis melatonin: 10 mg, Oral, Once a day (at bedtime), Refills(s) 0, Sleep multivitamin: Oral, Daily, Refill(s) 0, Prophylaxis phentermine 37.5 mg Tab: = 1 tab(s), Oral, q18hr, Refills(s) 0, Other (see comment), Home Medications (12) Active acetaminophen-hydrocodone 325 mg-5 mg oral tablet , PRN, Oral, q6hr baclofen 10 mg Tab 1 tab(s), Oral, q18hr celecoxib 200 mg Cap 1 cap(s), Oral, q18hr cranberry , Oral, Daily Floranex , Oral, TID magnesium glycinate , Oral, Daily melatonin 10 mg, Oral, Once a day (at bedtime) multivitamin , Oral, Daily pantoprazole 40 mg Oral EC Tab 40 mg = 1 tab(s), Oral, Daily phentermine 37.5 mg Tab 1 tab(s), Oral, q18hr Tylenol 650 mg, Oral, q4hr Vitamin D3 , Oral, Daily , Medications (2) Active Scheduled: (0) Continuous: (2) Lactated Ringers 1,000 mL 1,000 mL, IV, 100 mL/hr Sodium Chloride 0.9% 1,000 mL 1,000 mL, IV, 20 mL/hr PRN: (0) Problem list: All Problems Arthritis / SNOMED CT 4954191 / Confirmed Colon polyps / SNOMED CT 063897134 / Confirmed Family history of colon cancer / SNOMED CT 471421127 / Confirmed Family history of liver cancer / SNOMED CT 7728845742 / Confirmed Obesity / SNOMED CT 3440072445 / Confirmed Personal history of colon polyps, unspecified / SNOMED CT 8979802943 / Confirmed Sleep apnea / SNOMED CT 950774885 / Confirmed Resolved: Bronchitis / SNOMED CT 30172502 Resolved: Pneumonia / SNOMED CT 556009562 Histories Past Medical History: Resolved Bronchitis (52613970): Resolved. Pneumonia (889655295): Resolved. Procedure history: Bariatric surgeon ([id number]) on 03/13/2022 at 56 Years. Hip Replacement. Knee Replacement. Dilation and curettage ([id number]). 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 Physical Examination Vital Signs 04/11/2024 10:42 EST Temperature Temporal Artery 36 DegC LOW Heart Rate Monitored 81 bpm Respiratory Rate 16 br/min Systolic Blood Pressure 123 mmHg Diastolic Blood Pressure 93 mmHg HI Blood Pressure Location Left arm SpO2 99 % Measurements from flowsheet : Measurements 04/11/2024 10:38 EST Height/Length Measured 162 cm Height/Length Dosing 162.0 cm Weight Dosing 95.0 kg BSA Measured 2.07 m2 Body Mass Index Measured 36.2 kg/m2 Weight Measured 95 kg Airway: Mallampati classification: II (soft palate, fauces, uvula visible). Respiratory: Lungs are clear to auscultation, Respirations are non-labored. Cardiovascular: Regular rhythm. Plan [place] [employer]esthesiologists (ASA) physical status classification: Class III. Anesthetic P (more content not included)...[facility]healthComment on above:Result Comment: Electronically Signed By: Barrett Oliva Jr., DO\.chetan\Date and Time Signed: 04/11/24 10:49 [id number] NoteCONSULTATION PROCEDURE DATE: 07/24/2022 PROCEDURE: Right knee joint [...] She will be discharged home after meeting criteria.[facility] [id number] NoteCONSULTATION CONSULTATION DATE: 07/03/2022 TO: Dr. An HISTORY: [...] p.o. daily to b.i.d., as well as [place] 5 mg b.i.d., activity modification and a home exercise program. She reports she does respond to baclofen 10 mg at h.s. RECOMMENDATIONS: I have recommended a right knee joint injection. We will obtain urine toxicology screen at today's visit.[facility] [id number] NoteCONSULTATION CONSULTATION DATE: 05/01/2022 HISTORY OF PRESENT ILLNESS: [...] 10 mg q.h.s., Celebrex 200 mg daily, [place] 5/325 b.i.d. Patient's REVIEW OF SYSTEMS / [...] clinic in three months' time unless otherwise indicated.[facility] 03-20-2022 NoteCONSULTATION CONSULTATION DATE: 03/20/2022 HISTORY OF PRESENT ILLNESS: [...] Current medications include Celebrex 200 mg daily, [place] 5/325 b.i.d., baclofen 10 mg q. h.s [...] heat and vitamins. We will refill her [place] and baclofen at the set dose and frequency. Patient agrees to move forward with the procedure and will be followed up in the clinic thereafter.[facility] [id number] NoteCONSULTATION CONSULTATION DATE: 12/12/2021 HISTORY OF PRESENT ILLNESS: [...] Current medications include Celebrex 200 mg daily, [place] 5/325 b.i.d., baclofen 10 mg q.h.s. and [...] refill for baclofen 10 mg q.h.s and [place] 5/325 b.i.d. will be sent to her pharmacy. Patient agrees to move forward and be followed up in the clinic post procedure.[facility] [id number] NoteCONSULTATION CONSULTATION DATE: 10/10/2021 This is a 56-year-old female returning to the clinic for a 3-month follow-up for chronic lower back pain and right knee pain. She was last seen on 07/11/2021 which at that time she was having high levels of pain, 10 out of 10, especially to her right hip. Since that time, she had a total hip replacement in [place] and feels great relief. Her pain is four out of 10 today. She does have right knee pain with known osteoarthritis and bone on bone to the lateral aspect. She has received a steroid knee injection on 10/07/2021 which gave her a fair amount of relief. Her current medications include Celebrex 200 mg q. day, Baclofen 10 mg q.h.s. and [place] 5/325 t.i.d. The patient feels she doesn't [...] knee osteoarthritis. PLAN: We will refill her [place] but decrease the dose to 5/325 b.i.d. [...] of care and all questions were answered. [facility] Signed and Approved by: THERESA WAGNER . 10/17/2021 10:22:00[facility]05-18-2022 History of Present illness Narrative* Shani Matamoros RN - 08/28/2021 5:33 PM EDT Patient has met goals for discharge from [...] IV access removed. No further needs noted. * Cary Hyman, PT - 08/28/2021 4:30 PM EDT Physical Therapy Physical Therapy Evaluation PT Discharge [...] in hip with less pain sitting than lying.2 family members present for all training. Issued FWW and gait belt (at family request) for home. Pt signed [employer] paperwork. Pt transfer and gait training with FWW SBA. Curb step training with cga and cues for best safety practice as pt with bad R knee per report. Pt gait [id number] with antalgic gaitpattern. Pt with 1+1 BRAULIO and completed goals for home with family and OPPT on Thursday. Patient Active Problem List Diagnosis Unilateral primary osteoarthritis, right hip Past Medical History: Diagnosis Date Arthritis Dental disease upper Depression no current meds Diabetes mellitus (CMS/[facility]) pre diabetic no meds GERD (gastroesophageal reflux [...] Level of Function: Prior Function Level of [place]: Independent with mobility and functional transfers Prior [...] Gait Training Activity 1: Gait with FWW [id number] SBA Gait Training Activity 2: Curb step [...] LE VRE x10 reps with handout. Proper FWWheight, gait belt instruction for applicaiotn and use Precautions, taught by Cary Hyman PT at 08/28/2021 4:30 PM. Learner: Patient Readiness: Eager Method: Explanation, Demonstration, Handout Response: Verbalizes Understanding, Demonstrated Understanding, Indicates Understanding in Bedside Comment: HEP instruction for POD 1 with handout, HEP for B LE VRE x10 reps with handout. Proper FWWheight, gait belt instruction for applicaiotn and use Home Exercise Program, taught by Cary Hyman PT at 08/28/2021 4:30 PM. Learner: Family Readiness: Eager Method: Explanation, Demonstration, Handout Response: Verbalizes Understanding, Demonstrated Understanding, Indicates Understanding in Bedside Comment: HEP instruction for POD 1 with handout, HEP for B LE VRE x10 reps with handout. Proper FWWheight, gait belt instruction for applicaiotn and use Home Exercise Program, taught by Cary Hyman PT at 08/28/2021 4:30 PM. Learner: Patient Readiness: Eager Method: Explanation, Demonstration, Handout Response: Verbalizes Understanding, Demonstrated Understanding, Indicates Understanding in Bedside Comment: HEP instruction for POD 1 with handout, HEP for B LE VRE x10 reps with handout. Proper FWWheight, gait belt instruction for applicaiotn and use Mobility Training, taught by Cary Hyman PT at 08/28/2021 4:30 PM. Learner: Family Readiness: Eager Method: Explanation, Demonstration, Handout Response: Verbalizes Understanding, Demonstrated Understanding, Indicates Understanding in Bedside Comment: HEP instruction for POD 1 with handout, HEP for B LE VRE x10 reps with handout. Proper FWWheight, gait belt instruction for applicaiotn and use Mobility Training, taught by Cary Hyman PT at 08/28/2021 4:30 PM. Learner: Patient Readiness: Eager Method: Explanation, Demonstration, Handout Response: Verbalizes Understanding, Demonstrated Understanding, Indicates Understanding in Bedside Comment: HEP instruction for POD 1 with handout, HEP for B LE VRE x10 reps with handout. Proper FWWheight, gait belt instruction for applicaiotn and use Education Comments No comments found. * Hawa Hall RN - 08/28/2021 1:48 PM EDT Dressing placed at the end of the procedure. documented in this encounterHaven Behavioral [id number] Procedure note* Terrie Smith RN - 08/28/2021 3:44 PM EDT Handoff report given to MARCELA Mcleod. * Wyatt Tapia MD - 08/28/2021 12:57 PM EDT Jessica Dillard 1965 [facility], A Member of [facility] OPERATIVE REPORT PATIENT NAME: Jessica Dillard DATE OF : 1965 CSN: [id number] SURGEON: Wyatt Tapia MD, FACS DATE OF SERVICE: 08/28/2021 DATE OF SURGERY: 08/28/2021 PREOPERATIVE DIAGNOSIS: OA right hip (M16.11) POSTOPERATIVE DIAGNOSIS: OA right hip (M16.11) PROCEDURE: Primary Right Total Hip Arthroplasty utilizing the direct lateral approach (98011) Femoral Component: [employer] Avenir Complete Collarless Stem , High Offset Size: 6 Acetabular Component: G7 4 Hole Finned Acetabular Shell , 54mm Liner: G7 Vivacit-E Neutral, F, 36mm Screws: G7 Acetabular Screw(s) 6.5x30mm (-); Head Neck Unit: [employer] Ceramic Taper , 36mm , -3.5 ATTENDING SURGEON: Wyatt Tapia MD, FACS PROFESSOR OF PSYCHIATRY: Zafar M. Rivas, PA-C INDICATIONS: Patient is a 56-year-old Female. [...] and patient medication allergies have been reviewed. Therisks and benefits of the procedure along with [...] suite. After suitable and adequate induction of anesthesia,the patient is positioned in the lateral decubitus position using a standard well-padded pegboard. The hip and lower extremity is prepped and draped using a standard. Prior to performance of surgicalprocedure, a time out was performed to identify [...] debrided. The acetabulum is now deepened and expandedwith sequential reamers to a diameter of 53mm . A cementless G7 4 Hole Finned Acetabular Shell , 54mm acetabular component is now selected and seated within the confines of the acetabulum with a tight and secure interference fit over an autologous grafting obtained from reaming of the femoral head.Screws placed: G7 Acetabular Screw(s) 6.5x30mm (1); . Position of the component is abduction of approximately 40 degrees and anteversion of approximately 15 degrees. Landmarks utilized are the pubis,ischium and ilium. A G7 Vivacit-E Neutral, , F, liner is placed. The femoral canal is now prepared to accept a Avenir Complete Collarless Stem , Size: 6 stem. Trialreduction is now accomplished with the standard and high- offset stems. The High Offset stem is selected [...] (Ropivacaine), Epinephrine and a topical antibiotic 1 gramof vancomycin in the wound for infection prophylaxis was given. WOUND CLOSURE: Closure is accomplished in layers. The gluteus medius, gluteus minimus and capsule are repaired in continuity with #5 running ethibon and interrupted #1 Vicryl. The fascia libby is closed with running#2 Quill PDO. Subcutaneous tissue is closed with #0 Quill Monoderm and the skin closed with 2-0 Quill Monoderm and Dermabond. A sterile dressing was applied. PATIENT TO RECOVERY ROOM: The patient is turned in the supine position. The patient was awakened from anesthesia and taken torecovery room awake, alert, and stable in good condition. Roentgenographs are then obtained revealing satisfactory position and alignment of the components. PROFESSOR OF PSYCHIATRY/ATTENDING PHYSICIAN: Zafar Rivas PA-C assisted with proper [...] He assisted with the dislocation of the [place] hip, as well as dislocation/relocation of the prosthetic joint during the operation. His skills and knowledge of the steps of the operation and the desired outcome of each surgical step was crucial, allowing for efficient choreography of surgical procedure, and closure of thewound which lead to reduced surgical time, less blood loss, and less risk of complications for the patient. NOTES: Intraoperative x-rays were obtained to evaluate position and alignment of components. All components were found to be in satisfactory position and alignment. None Created and Digitally Signed By: Wyatt Tapia MD, FACS on 08/28/2021 16:59:00 [facility], A Member of [facility] OPERATIVE REPORT PATIENT NAME: Jessica Dillard DATE OF : 1965 CSN: [id number] SURGEON: Wyatt Tapia MD, FACS DATE OF SERVICE: 08/28/2021 DATE OF SURGERY: 08/28/2021 REF [id number] LOT [id number] G7 Finned Acetabular Shell 54MM SHELL SIZE F LINER SIZE Acetabular shell Use By 2031-04-19 () [id number] (67) [id number] (43) [id number] REF [id number] LOT [id number] G7 Vivacit-E Size F 36.00 Millimeter Non-constrained polyethylene acetabular liner Use By 2026-07-03 () [id number] (38) [id number] (45) [id number] REF [id number] LOT [id number] G7 ACETABULAR SCREW 6.5MM DIAMETER 30 SCREW LGTH Orthopaedic bone screw, non-bioabsorbable, sterile Use By 2031-06-02 () [id number] (17 [id number] (10) [id number] REF [id number] LOT [id number] Avenir Complete Size 6 Coated hip femur prosthesis, modular Use By 2025-11-28 () [id number] (17) [id number] (10) [id number] REF [id number] LOT [id number] Biolox delta 36/-3.5 'S' BIOLOX DELTA, CERAMIC FEMORAL HEAD, S, 36/-3.5, TAPER 03/26 Use By 2031-05-22 () [id number] (17) [id number] (56) [id number] . documented in this encounterHaven Behavioral [id number] History and physical note* Wyatt Tapia MD - 08/28/2021 12:30 PM EDT History and Physical Update ( H&P completed within the previous thirty days ) I personally reviewed the History and Physical, interviewed and examined the patient prior to surgery. No changes have occurred in the patient's condition since the History and Physical was completed. documented in this encounterHaven Behavioral [id number] Hospital course Narrative* Lili Araujo RN - 08/26/2021 10:27 AM EDT Pre-Surgery Instructions: Medication Instructions acetaminophen (TYLENOL) 500 mg tablet Continue to take as ordered/prescribed by your pcp amino ac/whey prot conc, isol (WHEY PROTEIN ORAL) Continue to take as ordered/prescribed by your pcplast dose 08/21 baclofen (LIORESAL) 10 mg tablet Continue to take as ordered/prescribed by your pcp BIOTIN ORAL Continue to take as ordered/prescribed by your pcplast dose 08/21 HYDROcodone-acetaminophen ([place]) 5-325 mg per tablet Continue to take as ordered/prescribed by your pcp ibuprofen (ADVIL,MOTRIN) 800 mg tablet Continue to take as ordered/prescribed by your pcplast dose 5/13 MAGNESIUM ORAL Continue to take as ordered/prescribed [...] your pcp Additional Instructions: Medication instructions per [facility] Pt states currently using CPAP - Has had a positive sleep study then neg study- instructed to bringCPAP DOS Instructions to prepare for surgery: Increase [...] prior to your surgery. Check in at temporary receptionist desk [address] [place] [address]. If Outpatient, these additional instructions apply: An adult must stay with you the whole time you are here and drive you home. An adult must stay withyou at home for 24 hours due to Anesthesia. If you have NEREIDA, you are required to stay 3 hours after your surgery before we can discharge you. documented in this encounterHaven Behavioral HealthcareBugjfs02-42-1669 NoteHNO ID: [id number] Author: Estefany Cook APRN.CRNA Service: Anesthesiology Author Type: Nurse Automotive Brake Specialist Type: Anesthesia Procedure Notes Filed: 03/29/2021 10:48 AM Note Text: ANESTHESIOLOGY PROCEDURE NOTE Airway General Information Procedure Start Time/Medication Administration: 03/29/2021 10:23 AM Patient location during procedure: OR Timeout Performed Pre-procedure: timeout performed Consent Obtained: Yes Patient identity confirmed: arm band, care paper steamer and patient Staffing Anesthesiologist: Tiburcio Eisenberg MD LANGUAGE INSTRUCTOR: Estefany Cook APRN.LANGUAGE INSTRUCTOR Performed by: JIA Indications and Patient Condition [...] attempts at approach: 1 SIGNATURE: Estefany Cook APRN.LANGUAGE INSTRUCTOR PATIENT NAME: Jessica Dillard DATE: March 29, 2021 TIME: 10:47 AM CSN: [id number] NoteHNO ID: [id number] Author: Loren Boyd MD Service: General Surgery Author Type: Resident Type: Progress Notes Filed: 12/28/2020 7:46 AM Note Text: GENERAL SURGERY PROGRESS NOTE Jessica Dillard [id number] ASSESSMENT AND PLAN 55 year old female [...] Type: * LAPAROSCOPIC ADRENALECTOMY - General Loren Boyd PGY-1 General SurgeryLahey Hospital & Medical [id number] NoteHNO ID: [id number] Author: Estefany Cook APRN.LANGUAGE INSTRUCTOR Service: Anesthesiology Author Type: Nurse Automotive Brake Specialist Type: Anesthesia Procedure Notes Filed: 12/27/2020 [...] Imaging Guidance Used: No SIGNATURE: Estefany Cook APRN.CRNA PATIENT NAME: Jessica Dillard DATE: December 27, 2020 TIME: 1:57 PM CSN: [id number] NoteHNO ID: [id number] Author: Estefany Cook APRN.LANGUAGE INSTRUCTOR Service: Anesthesiology Author Type: Nurse Automotive Brake Specialist Type: Anesthesia Procedure Notes Filed: 12/27/2020 [...] December 27, 2020 TIME: 1:54 PM CSN: [id number] NoteHNO ID: [id number] Author: Estefany Cook APRN.CRNA Service: Anesthesiology Author Type: Nurse Automotive Brake Specialist Type: Anesthesia Procedure Notes Filed: 12/27/2020 [...] December 27, 2020 TIME: 1:50 PM CSN: [id number] HospitalEvaluation + Plan note Future Appointments Appointment Date:04/11/2024 10:30:00 AM Scheduled Provider: Location:[facility] Surgical Services Appointment Type:Surgery FT Future Scheduled Tests Radiology* US Liver 03/07/24 [facility] Evaluation note* Diagnosis Unilateral primary osteoarthritis, right hip documented in this encounter [facility] course Narrative No data available for this section [facility] Hospital Discharge instructions* Attachments The following attachments cannot be sent through Care Everywhere. * Hip Replacement: Total: General Info (Gabonese) * Fall Prevention (Gabonese) [facility] No data available for this section [facility] Progress note No data available for this section [facility] Reason for visit Narrative* Auth/Cert Specialty Diagnoses / Procedures Referred By Contac t Referred To Contact Diagnoses Unilateral primary osteoarthritis, right hip M16.11 Procedures NJ ARTHROPLASTY ACETABULAR AND PROXIMAL FEMORAL PROSTHETIC REPLACEMENT (TOTAL HIP ARTHROPLASTY) WITH OR WITHOUT AUTOGRAFT OR ALLOGRAFT NJ ARTHROPLASTY ACETABULAR AND PROXIMAL FEMORAL PROSTHETIC REPLACEMENT (TOTAL HIP ARTHROPLASTY) WITH OR WITHOUT AUTOGRAFT OR ALLOGRAFT Right total hip arthoplasty Wyatt Houston MD [address] [facility] [address] [place] [address] Referral ID Status Reason Start Date Expiration Date Visits Re quested Visits Authorized [id number] 07/01/2021 1 1 [facility] Summary Purpose Family History No Family History Records FoundNo Family History Records FoundNo Family History Records FoundNo Family History Records FoundNo Family History Records FoundNo Family History Records Found No data available for this section No data available for this section No Family History Records FoundNo Family History Records FoundNo Family History Records Found Advance Directives No Advanced Directives Records FoundDocuments on File Type Date Recorded Patient 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 DATE CREATED AUTHOR AUTHOR'S ORGANIZ ATION 03/26/2021 [facility] DATE CREATED AUTHOR AUTHOR'S ORGANIZ ATION 04/11/2021 [facility] DATE CREATED AUTHOR AUTHOR'S ORGANIZ ATION 08/29/2021 [facility] DATE CREATED AUTHOR AUTHOR'S ORGANIZ ATION 07/26/2022 [facility] DATE CREATED AUTHOR AUTHOR'S ORGANIZ ATION 09/12/2023 [facility] DATE CREATED AUTHOR AUTHOR'S ORGANIZ ATION 04/22/2024 [facility] DATE CREATED AUTHOR AUTHOR'S ORGANIZ ATION 04/26/2024 [facility] DATE CREATED AUTHOR AUTHOR'S ORGANIZ ATION 05/10/2024 [facility] Source Comments (unrecognize d section and content) In the event this informatio n is protected by the Federal Confidentiality of Alcohol and Drug Abuse Patient Records regulations: The Federal rules restrict any use of the information to criminally investigate or prosecute any alcohol or drug abuse patient.[facility] Reason for Visit (unrecogniz ed section and content) Reason Onset Date Comments Refill Request 07/14/2021 Care Teams (unrecognized sec tion and content) Music Typographer Relationship Specialty Start Date End Date Yaneth An MD [address] [place], [place] [phone] PCP - General Family Practice 10/05/20 Music Typographer Relationship Specialty Start Date End Date Yaneth An MD [address] [place] [phone] PCP - General Family Medicine 08/05/21 Ordered [...] Prophylaxis: Orthopedic 1310 (Given - Provid er: Silvestre Onofre [facility]) Continuous Medication Order 08/26/2021 08/27/2021 08/28/2021 lactated [...] Recovery (only), 2nd Line Option: -ONLY give NJ if patient is unable to take orally [...] Recovery (only)
2nd Line Option: -ONLY give NJ if patient is unable to take orally [...] BE BASED ON THE PRIMARY CLINICAL RECORDS. [facility] [employer] [facility]. provides no warranty or guarantee of the accuracy or completeness of information in this document.
--- NOTE | 2024-05-11 15:15 | P.CN_ITS ---
Consult Note: HPI Data of Consult Patient: known to practice within the last 3 years Requesting Physician: Vivian Corral NP Primary Care Provider: Marlon Garcia MD Consult Narrative Reason for consult: f/u Narrative: Jessica Dillard a pleasant 58 year old female presents for evaluation and management of chronic pain. Today pain is 3/10 in low back and right knee, describes it as a dull ache. Pain increases to 7/10 with activity and depending on the weather and activity, now noticing increase with standing walking lifting bending twisting stairs and improved with sitting and medications. 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 cc:: CC: Vivian Corral NP Review of Systems ROS Status of ROS 10 or more systems reviewed and unremark able except as noted in history and below Musculoskeletal Reports: back pain and joint pain PFSH PFSH Medical History Osteoarthritis ?M19.90 - Unspecified osteoarthritis, unspecified site (ICD-10) Depression ?F32.A - Depression, unspecified (ICD-10) Sleep apnea ?G47.30 - Sleep apnea, unspecified (ICD-10) High cholesterol ?E78.00 - Pure hypercholesterolemia, unspecified (ICD-10) HTN (hypertension) ?I10 - Essential (primary) hypertension (ICD-10) Surgical History History of right knee surgery ?Z98.890 - Other specified postprocedural states (ICD-10) 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 [part of] (ICD-10) History of breast biopsy ?Z98.890 - Other specified postprocedural states (ICD-10) History of arthroscopy of left knee ?Z98.890 - Other specified postprocedural states (ICD-10) History of total left hip arthroplasty ?Z96.642 - Presence of left artificial hip joint (ICD-10) History of right hip replacement ?Z96.641 - Presence of right artificial hip joint (ICD-10) Meds Home Medications and Allergies Home Medications ?Medication ?Instructions ?Recorded ?Confirmed ?Type acetaminophen 500 mg tablet 500 mg PO QID PRN pain 11/04/22 01/26/24 History (Acetaminophen Extra Strength) bee pollen 550 mg capsule mg PO 11/04/22 History biotin 1 mg capsule 1 mg PO DAILY 11/04/22 01/26/24 History celecoxib 200 mg capsule 200 mg PO Q24H 11/04/22 01/26/24 History magnesium 200 mg tablet 400 mg PO DAILY 11/04/22 01/26/24 History multivitamin (Daily Multi-Vitamin 1 tab PO DAILY 11/04/22 01/26/24 History tablet) pantoprazole 40 mg tablet,delayed 40 mg PO DAILY 11/04/22 01/26/24 History release baclofen 10 mg tablet 10 mg PO TID PRN muscle spasm #90 05/18/23 01/26/24 Rx tabs hydrocodone 5 mg-acetaminophen 325 1 tab PO BID PRN pain #60 tabs 10/09/23 01/26/24 Rx mg tablet hydrocodone 5 mg-acetaminophen 325 1 tab PO BID PRN pain #60 tabs 01/14/24 01/26/24 Rx mg tablet hydrocodone 5 mg-acetaminophen 325 1 tab PO BID PRN pain #60 tabs 02/22/24 Rx mg tablet hydrocodone 5 mg-acetaminophen 325 1 tab PO BID PRN pain #60 tabs 03/21/24 Rx mg tablet hydrocodone 5 mg-acetaminophen 325 1 tab PO BID PRN pain #60 tabs 04/21/24 Rx mg tablet naloxone 4 mg/actuation nasal 1 spray intranasal Q2M PRN opioid 04/21/24 Rx spray (Narcan) overdose #1 ea Allergies Allergy/AdvReac Type Severity Reaction Status Date / Time ciprofloxacin (From Cipro) Allergy unknown Verified 01/26/24 08:36 Exam Constitutional Documenting provider has reviewed patient's vital signs: yes Common normals: no apparent distress, oriented x3, healthy appearing, alert and well nourished General appearance: cooperative HENMT Common normals: normocephalic, hearing grossly normal bilaterally and moist oral mucous membranes Head and scalp: normocephalic Eye Common normals: PERRL Pupil: PERRL Neck & C-Spine Common normals: full ROM General: normal visual inspection Chest Common normals: inspection of chest normal Respiratory Common normals: normal respiratory effort, no retractions and no use of accessory muscles Back & Pelvis Thoracic spine/upper back: pain with ROM Lumbar spine/lower back: straight leg raise negative bilaterally; no pain with ROM Sacroiliac joints: SI joints normal Other: positive facet loading bilaterally, tenderness over T9-12 facets. no pain noted over L3-S1 facets strength 5/5 in BLE sensation intact BLE Extremity Common normals: normal to inspection and full ROM Right lower extremity: knee joint Right knee: inspection (enlarged joint) Other: pain with weight bearing and activity, mild to moderate edema noted, pain with medial and lateral stress testing no instability noted, moderate crepitus on exam Neuro Common normals: oriented x3, CN's II-XII intact bilaterally, moves all extremities, no focal motor deficits, no sensory deficits noted and deep tendon reflexes 2+ bilaterally Sensorium/orientation: alert Motor exam: strength 5/5 throughout and no movement abnormalities noted Psych Common normals: mental status grossly normal, thought process normal, cooperative, affect normal, speech normal and activity/motor behavior normal Speech: normal speech Thought process: normal thought process Results Additional Findings Additional findings: If on a controlled substance or opioids, I have checked an [place] report on this patient and there are no aberrancies noted in the prescribing history.??If on a controlled substance or opioid a drug screen was completed and reviewed within the last year, and if there has not been a drug screen completed we ordered one today to monitor higher risk, state monitored pain medication use. As part of providing excellent, safe, comprehensive care, the following was completed at our patient's visit: 1. A medication reconciliation and review to ensure accurate knowledge of current/active medications, including asking our patients to inform us about any znkl-zkm-qrlayod medications or herbal remedies/nutritional supp lements/alternative remedies. 2. A review to specifically ensure our patients have had annual screening for screening for depression, screening for tobacco use, and screening for unhealthy alcohol use. For concerning screenings had a discussion with the patient, provided patient education, and recommended follow-up with primary care provider when appropriate. If patient noted with a risk of falling, they received education on strength, gait, and balance training to prevent future risk of falling. Portions of this note may have been carried over from the previous visit and updated as appropriate. Please note this office utilizes paper charting in addition to the electronic medical record. A list of current medications, vitals, and PMH is available there as the clinical staff outside of myself do not have access to [employer] charting during the clinic day operations. As part of providing quality comprehensive care the current medications, vitals, and PMH were reviewed in the paper chart. Assessment and Plan Assessment and Plan (1) Lumbar spondylosis: Assessment and Plan: greater than 50% improvement on exam from repeat right and left L2-3 L4-5 facet RFA (2) Knee osteoarthritis: Assessment and Plan: insurance no longer covering durolane (3) Chronic prescription opiate use: Assessment and Plan: I feel these medications are improving the patient's quality of life and allow them to tolerate activities of daily living as well as participate in recreational activity.? The patient does not report intolerable side effects. The patient is NOT opioid naive and non-pharmacologic and non-opioid treatment has failed to significantly relieve the patient's pain and improve functionality. The patient has a diagnosis that is related to a somatic or visceral pain etiology. ? ?? I reviewed with the patient the potential risks and side effects with the use of? opioid medications including but not limited to respiratory depression,? sedation, and even . Within the last 12 months I have verified the patient has access to naloxone should? these effects occur. The patient was advised to let? their family know they had Naloxone in case they would need to administer? the medication. I advised the patient to avoid the use of any other? sedation substances including alcohol, THC, and benzodiazepines while? taking opioid medications due to the risk of compounding side effects and? detrimental outcomes. within the last 12 months I have reviewed the YOUTH CARE PROFESSIONAL, pain treatment agreement and urine drug screen.? ?? A drug screen was completed within the last year, and no aberrancies were noted regarding their use of controlled substances. The patient understands they are subject to the terms and conditions of the pain contract that they have signed. ? ?? I have checked an [place]AR[place] report on this patient today and there are no aberrancies noted in the prescribing history.? (4) Thoracic spondylosis: Assessment and Plan: insurance will not cover thoracic MBBs/RFAs (5) Myalgia: (6) Chronic pain syndrome: Plan wean off of hydrocodone as tolerated continue baclofen 10mg TID PRN pain/spasms, not to be taken while driving continue HEP as tolerated start duloxetine 60mg HS, risks vs benefits reviewed f/u 3 months, sooner if needed
== END 2024-05-11 14:47 | disposition home or self-care (01) ==
PROVIDERS: PCP Family Medicine; Visit Provider Nurse Practitioner
DX: M47.816 Spondylosis without myelopathy or radiculopathy, lumbar region (principal); M17.0 Bilateral primary osteoarthritis of knee; Z79.891 Long term (current) use of opiate analgesic; M47.814 Spondylosis without myelopathy or radiculopathy, thoracic region; G89.4 Chronic pain syndrome
CPT/HCPCS: G0463

== ENCOUNTER 2024-06-09 09:42 | Outpatient (OUT) | payer MEDICAID, SELFPAY ==
[2024-06-09 11:05] LABS: Amphetamine Screen Urine NEGATIVE (NEGATIVE); Barbiturates Screen Urine NEGATIVE (NEGATIVE); Benzodiazepines Screen Urine NEGATIVE (NEGATIVE); Buprenorphine Screen Urine NEGATIVE (NEGATIVE); Cannabinoid Screen Urine NEGATIVE (NEGATIVE); Cocaine Screen Urine NEGATIVE (NEGATIVE); Methadone Screen Urine NEGATIVE (NEGATIVE); Methamphetamines Screen Urine NEGATIVE (NEGATIVE); Opiate Screen Urine NEGATIVE (NEGATIVE); Oxycodone Screen Urine NEGATIVE (NEGATIVE); Phencyclidine Screen Urine NEGATIVE (NEGATIVE); Tricyclic Antidepressant Urine NEGATIVE (NEGATIVE)
== END 2024-06-09 09:43 | disposition home or self-care (01) ==
LOC: LAB 09:45
PROVIDERS: PCP Family Medicine; Visit Provider Family Medicine
DX: Z00.00 Encounter for general adult medical examination without abnormal findings (principal)
CPT/HCPCS: 80307

== ENCOUNTER 2024-08-04 13:29 | Outpatient (OUT) | payer MEDICAID, SELFPAY ==
--- NOTE | 2024-08-04 14:03 | PM.CN ---
Consult Note: HPI Data of Consult Patient: known to practice within the last 3 years Requesting Physician: Vivian Corral NP Primary Care Provider: Marlon Garcia MD Consult Narrative Reason for consult: f/u Narrative: Jessica Dillard a pleasant 59 year old female presents for evaluation and management of chronic pain. Today pain is 3/10 in low back and right knee, describes it as a dull ache. Pain increases to 7/10 with activity and depending on the weather and activity, now noticing increase with standing walking lifting bending twisting stairs and improved with sitting and medications. pt finds benefit to baclofen and celebrex, recently started duloxetine which was helpful however she gained 7lbs over 6 weeks and has discontinued due to weight gain. cc:: CC: Vivian Corral NP Review of Systems ROS Status of ROS 10 or more systems reviewed and unremarkable except as noted in history and below Musculoskeletal Reports: back pain and joint pain PFSH PFSH Medical History Osteoarthritis ?M19.90 - Unspecified osteoarthritis, unspecified site (ICD-10) Depression ?F32.A - Depression, unspecified (ICD-10) Sleep apnea ?G47.30 - Sleep apnea, unspecified (ICD-10) High cholesterol ?E78.00 - Pure hypercholesterolemia, unspecified (ICD-10) HTN (hypertension) ?I10 - Essential (primary) hypertension (ICD-10) Surgical History History of right knee surgery ?Z98.890 - Other specified postprocedural states (ICD-10) 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 [part of] (ICD-10) History of breast biopsy ?Z98.890 - Other specified postprocedural states (ICD-10) History of arthroscopy of left knee ?Z98.890 - Other specified postprocedural states (ICD-10) History of total left hip arthroplasty ?Z96.642 - Presence of left artificial hip joint (ICD-10) History of right hip replacement ?Z96.641 - Presence of right artificial hip joint (ICD-10) Meds Home Medications and Allergies Home Medications ?Medication ?Instructions ?Recorded ?Confirmed ?Type acetaminophen 500 mg tablet 500 mg PO QID PRN pain 11/04/22 01/26/24 History (Acetaminophen Extra Strength) bee pollen 550 mg capsule mg PO 11/04/22 History biotin 1 mg capsule 1 mg PO DAILY 11/04/22 01/26/24 History celecoxib 200 mg capsule 200 mg PO Q24H 11/04/22 01/26/24 History magnesium 200 mg tablet 400 mg PO DAILY 11/04/22 01/26/24 History multivitamin (Daily Multi-Vitamin 1 tab PO DAILY 11/04/22 01/26/24 History tablet) pantoprazole 40 mg tablet,delayed 40 mg PO DAILY 11/04/22 01/26/24 History release baclofen 10 mg tablet 10 mg PO TID PRN muscle spasm #90 05/18/23 01/26/24 Rx tabs hydrocodone 5 mg-acetaminophen 325 1 tab PO BID PRN pain #60 tabs 03/21/24 Rx mg tablet naloxone 4 mg/actuation nasal 1 spray intranasal Q2M PRN opioid 04/21/24 Rx spray (Narcan) overdose #1 ea duloxetine 60 mg capsule,delayed 60 mg PO DAILY #30 caps 05/11/24 Rx release baclofen 10 mg tablet See Rx Instructions .Route 06/08/24 Rx .COMPLEX #90 tabs duloxetine 60 mg capsule,delayed 60 mg PO .HS #30 caps 06/08/24 Rx release baclofen 10 mg tablet See Rx Instructions .Route 07/07/24 Rx .COMPLEX PRN muscle spasm #90 tabs duloxetine 60 mg capsule,delayed 60 mg PO DAILY #30 caps 07/07/24 Rx release Allergies Allergy/AdvReac Type Severity Reaction Status Date / Time ciprofloxacin (From Cipro) Allergy unknown Verified 01/26/24 08:36 Exam Constitutional Documenting provider has reviewed patient's vital signs: yes Common normals: no apparent distress, oriented x3, healthy appearing, alert and well nourished General appearance: cooperative HENMT Common normals: normocephalic, hearing grossly normal bilaterally and moist oral mucous membranes Head and scalp: normocephalic Eye Common normals: PERRL Pupil: PERRL Neck & C-Spine Common normals: full ROM General: normal visual inspection Chest Common normals: inspection of chest normal Respiratory Common normals: normal respiratory effort, no retractions and no use of accessory muscles Back & Pelvis Thoracic spine/upper back: pain with ROM Lumbar spine/lower back: ROM limited, pain with ROM, lumbar spinal tenderness and straight leg raise negative bilaterally Sacroiliac joints: SI joints normal Other: positive facet loading bilaterally, tenderness over T9-12 facets. increased low back pain with standing and walking, improved with forward flexion and sitting strength 5/5 in BLE sensation intact BLE Extremity Common normals: normal to inspection and full ROM Right lower extremity: knee joint Right knee: inspection (enlarged joint) Other: pain with weight bearing and activity, mild to moderate edema noted, pain with medial and lateral stress testing no instability noted, moderate crepitus on exam Neuro Common normals: oriented x3, CN's II-XII intact bilaterally, moves all extremities, no focal motor deficits, no sensory deficits noted and deep tendon reflexes 2+ bilaterally Sensorium/orientation: alert Motor exam: strength 5/5 throughout and no movement abnormalities noted Psych Common normals: mental status grossly normal, thought process normal, cooperative, affect normal, speech normal and activity/motor behavior normal Speech: normal speech Thought process: normal thought process Results Additional Findings Additional findings: If on a controlled substance or opioids, I have checked an [place] report on this patient and there are no aberrancies noted in the prescribing history.??If on a controlled substance or opioid a drug screen was completed and reviewed within the last year, and if there has not been a drug screen completed we ordered one today to monitor higher risk, state monitored pain medication use. As part of providing excellent, safe, comprehensive care, the following was completed at our patient's visit: 1. A medication reconciliation and review to ensure accurate knowledge of current/active medications, including asking our patients to inform us about any [id number] medications or herbal remedies/nutritional supplements/alternative remedies. 2. A review to specifically ensure our patients have had annual screening for screening for depression, screening for tobacco use, and screening for unhealthy alcohol use. For concerning screenings had a discussion with the patient, provided patient education, and recommended follow-up with primary care provider when appropriate. If patient noted with a risk of falling, they received education on strength, gait, and balance training to prevent future risk of falling. Portions of this note may have been carried over from the previous visit and updated as appropriate. Please note this office utilizes paper charting in addition to the electronic medical record. A list of current medications, vitals, and PMH is available there as the clinical staff outside of myself do not have access to [employer] charting during the clinic day operations. As part of providing quality comprehensive care the current medications, vitals, and PMH were reviewed in the paper chart. Assessment and Plan Assessment and Plan (1) Lumbar stenosis with neurogenic claudication: (2) Lumbar degenerative disc disease: (3) Lumbar spondylosis: Assessment and Plan: greater than 50% improvement on exam from repeat right and left L2-3 L4-5 facet RFA (4) Knee osteoarthritis: Assessment and Plan: insurance no longer covering durolane (5) Chronic prescription opiate use: Assessment and Plan: I feel these medications are improving the patient's quality of life and allow them to tolerate activities of daily living as well as participate in recreational activity.? The patient does not report intolerable side effects. The patient is NOT opioid naive and non-pharmacologic and non-opioid treatment has failed to significantly relieve the patient's pain and improve functionality. The patient has a diagnosis that is related to a somatic or visceral pain etiology. ? ?? I reviewed with the patient the potential risks and side effects with the use of? opioid medications including but not limited to respiratory depression,? sedation, and even . Within the last 12 months I have verified the patient has access to naloxone should? these effects occur. The patient was advised to let? their family know they had Naloxone in case they would need to administer? the medication. I advised the patient to avoid the use of any other? sedation substances including alcohol, THC, and benzodiazepines while? taking opioid medications due to the risk of compounding side effects and? detrimental outcomes. within the last 12 months I have reviewed the [employer], pain treatment agreement and urine drug screen.? ?? A drug screen was completed within the last year, and no aberrancies were noted regarding their use of controlled substances. The patient understands they are subject to the terms and conditions of the pain contract that they have signed. ? ?? I have checked an [place] report on this patient today and there are no aberrancies noted in the prescribing history.? (6) Thoracic spondylosis: Assessment and Plan: insurance will not cover thoracic MBBs/RFAs (7) Myalgia: (8) Chronic pain syndrome: Plan 59 year old female with chronic back pain unresponsive to >6 weeks of PT and provider guided HEP, heat, ice, tylenol, NSAIDs. prior lumbar xray consistent with multilevel spondylosis and DDD, no advanced imaging available to review. update lumbar MRI without contrast to assess lumbar dDD and lumbar stenosis with NC in consideration of additional interventional therapy vs NS consultation. start zonegran 50-100mg HS as tolerated, risks vs benefits reviewed. continue baclofen 10mg bid prn pain/spasms. continue HEP as tolerated. f/u to review lumbar MRI
== END 2024-08-04 13:30 | disposition home or self-care (01) ==
LOC: PM 13:30
PROVIDERS: PCP Family Medicine; Visit Provider Nurse Practitioner
DX: M48.062 Spinal stenosis, lumbar region with neurogenic claudication (principal); M51.369 Other intervertebral disc degeneration, lumbar region without mention of lumbar back pain or lower extremity pain; M47.816 Spondylosis without myelopathy or radiculopathy, lumbar region; M17.9 Osteoarthritis of knee, unspecified; Z79.891 Long term (current) use of opiate analgesic; M47.814 Spondylosis without myelopathy or radiculopathy, thoracic region; M79.18 Myalgia, other site; G89.4 Chronic pain syndrome
CPT/HCPCS: G0463